=== PATIENT | female | born 1970 | race Two or more races ===

== ENCOUNTER 2018-02-14 23:58 | Inpatient (IN) | payer MEDICARE, MEDICAID ==
[~2018-02-14] VITALS: Ht 165.1 cm; Wt 83.5 kg
[2018-02-15] VITALS (8 sets, daily range): BP systolic 104–127; BP diastolic 55–78
[2018-02-15 00:27] LABS: HEMATOCRIT 37.7 % (37.0-47.0); MEAN CORPUSCULAR VOLUME 90 FL (80-99); PLATELET COUNT 437 K/UL (150-450); RED BLOOD COUNT 4.17 M/UL (4.20-5.40)
[2018-02-15 00:35] LABS: WHITE BLOOD COUNT 28.2 K/UL (4.8-10.8)
[2018-02-15 00:44] LABS: ANION GAP 17 mmol/L (5-15); BLOOD UREA NITROGEN 63 mg/dL (7-18); CALCIUM 9.9 MG/DL (8.5-10.1); CARBON DIOXIDE 22 MMOL/L (21-32); CHLORIDE 97 MMOL/L (98-107); CREATININE 2.7 MG/DL (0.55-1.30); POTASSIUM 4.3 MMOL/L (3.5-5.1); SODIUM 136 MMOL/L (136-145)
[2018-02-15 00:46] LABS: APPEARANCE,URINE TURBID; BILIRUBIN, URINE NEGATIVE (NEGATIVE); GLUCOSE, URINE (UA) 1+ (NEGATIVE); KETONES,URINE NEGATIVE (NEGATIVE); LEUKOCYTE ESTERASE ,URINE 2+ (NEGATIVE); NITRITE,URINE NEGATIVE (NEGATIVE); PH,URINE 7 (4.5-8.0); PROTEIN,URINE 4+ (NEGATIVE); UROBILINOGEN,URINE NORMAL MG/DL (0.0-1.0)
[2018-02-15 00:47] LABS: INR 0.9 (0.9-1.1)
[2018-02-15 00:48] LABS: COLOR,URINE RED
[2018-02-15] MEDS ORDERED: IPRATROPIU0.2 MG/1 M HHN (00:53)
[2018-02-15] MEDS ORDERED: MULTIVITAMINS1 EAC8 GT (00:53)
[2018-02-15] MEDS ORDERED: MILK OF MA400 MG/51 GT (00:53)
[2018-02-15] MEDS ORDERED: COMPAZINE10 MG GT (00:53)
[2018-02-15] MEDS ORDERED: COZAAR25 MG GT (00:53)
[2018-02-15] MEDS ORDERED: KEPPRA LIQ100 MG/1 M GT (00:53)
[2018-02-15] MEDS ORDERED: DULCOLAX10 MG RC (00:53)
[2018-02-15] MEDS ORDERED: HEPARIN SO5000 UNIT2 SUBQ (00:53)
[2018-02-15] MEDS ORDERED: DIGOXIN0.25 MG/5 GT (00:53)
[2018-02-15] MEDS ORDERED: PEPCID AC20 M2 GT (00:53)
[2018-02-15] MEDS ORDERED: CARVEDILOL12.5 MG GT (00:53)
[2018-02-15] MEDS ORDERED: CRANBERRY JUIC425 MG GT (00:53)
[2018-02-15] MEDS ORDERED: LACTULOSE20 GM/301 GT (00:53)
[2018-02-15] MEDS ORDERED: ATIVAN2 MG GT (00:53)
[2018-02-15 00:58] LABS: ALANINE AMINOTRANSFERASE 56 U/L (12-78); ALBUMIN 3.8 G/DL (3.4-5.0); ALBUMIN/GLOBULIN RATIO 0.7 (1.0-2.7); ALKALINE PHOSPHATASE 105 U/L (46-116); ASPARTATE AMINO TRANSFERASE 28 U/L (15-37); BILIRUBIN,TOTAL 1.1 MG/DL (0.2-1.0); CKMB 1.3 NG/ML (0.0-3.6); CREATINE KINASE 54 U/L (26-308)
[2018-02-15] MEDS ORDERED: Cefepime HCl 1 GM in D5W 55 ML IVPB ONE (01:00)
[2018-02-15 01:01] LABS: BILIRUBIN,DIRECT 0.3 MG/DL (0.0-0.3)
[2018-02-15] MEDS ORDERED: Acetaminophen 500mg (ES) tab ORAL ONE (01:15)
--- NOTE | 2018-02-15 01:27 | Emergency Room Report ---
History of Present Illness General Chief Complaint: Fever Source: Medical Record, EMS Present Illness HPI Is a 47-year-old female with multiple medical problems. She has a history of methamphetamine abuse and seizure activity. She has anoxic brain injury is in a group home. She has a tracheostomy with blow by air and also feeding tube. She presents with chief complaint of fever abdominal distention and tachycardia. According to EMS, nursing staff noticed that she was not making any urine output and was distended. The place a new Baxter in and had urine output that was bloody. Patient had a fever. She was sent here to be evaluated. Unable to get any history from this patient because she is nonverbal. Allergies: Coded Allergies: PENICILLINS (Verified Allergy, Unknown, 02/14/18) Patient History Past Medical History: see triage record, old chart reviewed Past Surgical History: other Pertinent Family History: none Social History: Denies: smoking Now: No Immunizations: other Reviewed Nursing Documentation: PMH: Agreed; PSxH: Agreed Nursing Documentation-PMH Hx Hypertension: Yes Hx Gastrointestinal Problems: Yes - GASTROSTOMY Hx Neurological Problems: Yes - ENCEPHALOPATHY Hx Seizures: Yes Review of Systems Constitutional: Reports: fever, malaise Eye: Denies: eye pain, blurred vision ENT: Denies: ear pain, nose congestion, throat swelling Respiratory: Denies: cough, shortness of breath Cardiovascular: Denies: chest pain, palpitations Gastrointestinal: Reports: abdominal pain Genitourinary: Reports: hematuria Musculoskeletal: Denies: back pain, joint pain Skin: Denies: rash Neurological: Denies: headache, numbness Endocrine: Denies: increased thirst, increased urine Hematologic/Lymphatic: Denies: easy bruising All Other Systems: negative except mentioned in HPI Physical Exam Vital Signs Date Time Temp Pulse Resp B/P (MAP) Pulse Ox O2 Delivery O2 Flow Rate FiO2 02/14/18 23:57 100.6 139 24 102/65 99 Trach Collar 2.0 100.6 vitals with fever and tachycardia Sp02 EP Interpretation: reviewed, normal General Appearance: mild distress, lethargic, Chronically Ill Head: normocephalic, atraumatic Eyes: bilateral eye PERRL, bilateral eye EOMI ENT: hearing grossly normal, dry mucus membranes Neck: full range of motion, supple, no meningismus Respiratory: chest non-tender, lungs clear, normal breath sounds Cardiovascular #1: regular rate, rhythm, no murmur, tachycardia Gastrointestinal: normal bowel sounds, non tender, no mass, no organomegaly, no bruit, non-distended Rectal: other - skin breakdown of the sacrum Musculoskeletal: back normal, normal range of motion Neurologic: other - grimace to pain Skin: warm/dry Procedures Critical Care Time Critical Care Time Critical care is mandated in this patient who presented with sepsis. Patient require my urgent intervention to attenuate the risks of metabolic collapse which may lead to cardiovascular collapse and . Critical care time is 35 minutes excluding any reportable procedure. Critical care time included evaluation, multiple reevaluation, looking at old charts, interpreting laboratory and diagnostic data, discussing case with patient and family and consultants, and charting. Medical Decision Making Diagnostic Impression: Primary Impression: Severe sepsis Additional Impressions: UTI (urinary tract infection) Qualified Codes: N30.00 - Acute cystitis without hematuria Proteinuria Qualified Codes: R80.9 - Proteinuria, unspecified Acute renal failure (ARF) Qualified Codes: N17.9 - Acute kidney failure, unspecified Urinary retention ER Course Patient presents with severe sepsis from UTI. No acute abdomen. She has hydronephrosis probably secondary to urinary retention which resolved. Better after IV fluid and antibiotics. Will admit for IV fluid and further antibiotics. Condition is critical. I contacted Dr. Damon for admission. He is admitting for Dr. Kauffman. Laboratory Tests Test 02/15/18 00:15 02/15/18 02:30 White Blood Count 28.2 K/UL (4.8-10.8) *H Red Blood Count 4.17 M/UL (4.20-5.40) L Hemoglobin 13.0 G/DL (12.0-16.0) Hematocrit 37.7 % (37.0-47.0) Mean Corpuscular Volume 90 FL (80-99) Mean Corpuscular Hemoglobin 31.2 PG (27.0-31.0) H Mean Corpuscular Hemoglobin Concent 34.6 G/DL (32.0-36.0) Red Cell Distribution Width 13.0 % (11.6-14.8) Platelet Count 437 K/UL (150-450) Mean Platelet Volume 7.8 FL (6.5-10.1) Neutrophils (%) (Auto) % (45.0-75.0) Lymphocytes (%) (Auto) % (20.0-45.0) Monocytes (%) (Auto) % (1.0-10.0) Eosinophils (%) (Auto) % (0.0-3.0) Basophils (%) (Auto) % (0.0-2.0) Differential Total Cells Counted 100 Neutrophils % (Manual) 89 % (45-75) H Lymphocytes % (Manual) 7 % (20-45) L Monocytes % (Manual) 4 % (1-10) Eosinophils % (Manual) 0 % (0-3) Basophils % (Manual) 0 % (0-2) Band Neutrophils 0 % (0-8) Platelet Estimate Adequate Platelet Morphology Normal Prothrombin Time 9.5 SEC (9.30-11.50) Prothromb Time International Ratio 0.9 (0.9-1.1) Activated Partial Thromboplast Time 27 SEC (23-33) Urine Color Red Urine Appearance Turbid Urine pH 7 (4.5-8.0) Urine Specific [place] 1.010 (1.005-1.035) Urine Protein 4+ (NEGATIVE) H Urine Glucose (UA) 1+ (NEGATIVE) H Urine Ketones Negative (NEGATIVE) Urine Occult Blood 4+ (NEGATIVE) H Urine Nitrite Negative (NEGATIVE) Urine Bilirubin Negative (NEGATIVE) Urine Urobilinogen Normal MG/DL (0.0-1.0) Urine Leukocyte Esterase 2+ (NEGATIVE) H Urine RBC Tntc /HPF (0 - 2) H Urine WBC 30-40 /HPF (0 - 2) H Urine Squamous Epithelial Cells Occasional /LPF Urine Bacteria Few /HPF (NONE) Sodium Level 136 MMOL/L (136-145) Potassium Level 4.3 MMOL/L (3.5-5.1) Chloride Level 97 MMOL/L (98-107) L Carbon Dioxide Level 22 MMOL/L (21-32) Anion Gap 17 mmol/L (5-15) H Blood Urea Nitrogen 63 mg/dL (7-18) H Creatinine 2.7 MG/DL (0.55-1.30) H Estimat Glomerular Filtration Rate 18.8 mL/min (>60) Glucose Level 155 MG/DL (74-106) H Lactic Acid Level 3.10 mmol/L (0.66-2.22) H 2.60 mmol/L (0.66-2.22) H Calcium Level 9.9 MG/DL (8.5-10.1) Total Bilirubin 1.1 MG/DL (0.2-1.0) H Direct Bilirubin 0.3 MG/DL (0.0-0.3) Aspartate Amino Transf (AST/SGOT) 28 U/L (15-37) Alanine Aminotransferase (ALT/SGPT) 56 U/L (12-78) Alkaline Phosphatase 105 U/L (46-116) Total Creatine Kinase 54 U/L (26-308) Creatine Kinase MB 1.3 NG/ML (0.0-3.6) Creatine Kinase MB Relative Index 2.4 Troponin I 0.000 ng/mL (0.000-0.056) Total Protein 8.9 G/DL (6.4-8.2) H Albumin 3.8 G/DL (3.4-5.0) Globulin 5.1 g/dL Albumin/Globulin Ratio 0.7 (1.0-2.7) L Lab Results Impression labs with leukocytosis and arf EKG Diagnostic Results Rate: tachycardiac Rhythm: NSR ST Segments: other - NSST changes Rhythm Strip Diag. Results Rhythm Strip Time: 01:26 EP Interpretation: yes Rate: 120 Rhythm: NSR, no PVC's, no ectopy Chest X-Ray Diagnostic Results Chest X-Ray Diagnostic Results : Chest X-Ray Ordered: Yes # of Views/Limited/Complete: 1 View Indication: Shortness of Breath EP Interpretation: Yes Interpretation: no consolidation, no effusion, no pneumothorax, no acute cardiopulmonary disease Impression: No acute disease Electronically Signed by: Med Cole MD CT/MRI/US Diagnostic Results CT/MRI/US Diagnostic Results : Imaging Test Ordered: CT abdomen and pelvis Impression Read by radiologist. Gallstone. No inflammation. Hydronephrosis. Last Vital Signs Date Time Temp Pulse Resp B/P (MAP) Pulse Ox O2 Delivery O2 Flow Rate FiO2 02/14/18 23:57 100.6 139 24 102/65 99 Trach Collar 2.0 100.6 Status: improved Disposition: ADMITTED INPATIENT Condition: Critical Referrals: NON PHYSICIAN (PCP) MED COLE M.D. February 15, 2018 01:27
--- NOTE | 2018-02-15 01:58 | Diagnostic Imaging Report ---
EXAM: XR Chest, 1 View CLINICAL HISTORY: SOB TECHNIQUE: Frontal view of the chest. COMPARISON: No relevant prior studies available. FINDINGS: Tracheostomy. Heart size likely normal allowing for technique/portions with poor depth. Basilar atelectasis and/or infiltrate. Partially visualized percutaneous gastrostomy tube. Gaseous distention of stomach. IMPRESSION: Basilar atelectasis and/or infiltrate. Gaseous distention of stomach. Tracheostomy and percutaneous gastrostomy tube.
--- NOTE | 2018-02-15 02:13 | Diagnostic Imaging Report ---
EXAM: CT Abdomen and Pelvis Without Intravenous Contrast CLINICAL HISTORY: ABD PAIN TECHNIQUE: Axial computed tomography images of the abdomen and pelvis without intravenous contrast. CTDI is 19.5 mGy and DLP is 1064.4 mGy-cm. One or more of the following dose reduction techniques were used: automated exposure control, adjustment of the mA and/or kV according to patient size, use of iterative reconstruction technique. COMPARISON: No relevant prior studies available. FINDINGS: There is artifact limiting evaluation. Suspect trace pleural fluid. Dependent predominant atelectasis and/or infiltrate. There is bilateral hydronephrosis and hydroureter more prominent on the left. No urinary tract calculi seen. Bladder is decompressed with catheter limiting evaluation. Although decompressed, suspected wall thickening of bladder. There is intracystic air which is nonspecific given catheter. More questionable mural gas in the bladder versus intraluminal air. Recommend correlation for urinary tract infection/cystitis including emphysematous cystitis. There is trace free fluid with some fluid layering over retroperitoneum and fluid in the presacral region. Percutaneous gastrostomy tube. Gastric distention. There is prominent gas in small bowel and colon, as well. No obstruction is seen. Suspect findings represent ileus. Suspected cholelithiasis with stone in region of gallbladder neck/cystic duct. Example image 59/8. No obvious pericholecystic inflammatory changes though motion limits evaluation. If there are right upper quadrant symptoms, could correlate with ultrasound. No evidence for appendicitis. Suspect decubitus ulcer at posterior pelvic wall near midline. Portions of the underlying sacrum appears thinned with some portions not visualized. A component of osteomyelitis is not excluded. Heterotopic ossification partially imaged in the left pelvis and thigh. IMPRESSION: There is artifact limiting evaluation. Suspect trace pleural fluid. Dependent predominant atelectasis and/or infiltrate. Left greater than right hydronephrosis and hydroureter without urinary tract calculi. May be related to bladder wall thickening. Intraluminal gas in the bladder is nonspecific given catheter. More questionable mural gas. Recommend correlation for urinary tract infection/cystitis including emphysematous cystitis. Suspected cholelithiasis with stone in region of gallbladder neck/cystic duct. Example image 59/8. No obvious pericholecystic inflammatory changes though motion limits evaluation. If there are right upper quadrant symptoms, could correlate with ultrasound. Suspect ileus. No definite obstruction. Trace free fluid. Suspect decubitus ulcer at posterior pelvic wall near midline. Portions of the underlying sacrum appears thinned with some portions not visualized. A component of osteomyelitis is not excluded.
[2018-02-15] MEDS ORDERED: Ipratropium 0.02% Inh Soln 2.5ml UD HHN PRN ×2 (07:00→07:45)
[2018-02-15] MEDS ORDERED: Prochlorperazine 10mg tab GT PRN (07:00)
[2018-02-15] MEDS ORDERED: Milk of Magnesia 30ml Ud GT PRN (07:00)
[2018-02-15] MEDS: D5 1/2NS 1,000 ML IV SCH ×2 (08:18→21:35)
[2018-02-15] MEDS ORDERED: Losartan 25mg tab GT SCH (09:00)
[2018-02-15] MEDS: Multivitamin w/Minerals tab ORAL SCH (09:07)
[2018-02-15] MEDS: levETIRAcetam 500mg/5ml Liquid GT SCH ×2 (09:08→21:36)
[2018-02-15] MEDS: Lactulose 20gm/30ml UDC GT SCH ×2 (09:08→17:28)
[2018-02-15] MEDS ORDERED: Vancomycin 1gm in D5W 275ml IVPB ONE (10:00)
[2018-02-15] MEDS: Vitamin A&D Oint 2oz Tube TOPIC SCH ×2 (10:37→21:36)
[2018-02-15] MEDS: Cefepime HCl 2 GM in D5W 55 ML IV SCH (13:31)
--- NOTE | 2018-02-15 14:46 | History & Physical ---
History and Physical History & Physicial Dictated for Int Med-Dr Damon no. [id number]. Jonnathan Mcgrath MD February 15, 2018 14:46
[2018-02-15] MEDS ORDERED: Tubing IV Secondary IV ONE (18:44)
--- NOTE | 2018-02-15 22:15 | History and Physical Report ---
DATE OF ADMISSION: 02/15/2018 CHIEF COMPLAINT: The patient is a 47-year-old female who presents with chief complaint of fever and hematuria. HISTORY OF PRESENT ILLNESS: The patient is a resident of [facility]. The patient herself is unable to contribute to the history and physical and is nonverbal. According to the record, the patient was at [facility]. The patient began to experience fever yesterday February 14, 2018. The patient also was anuric. A Baxter was placed by EMS. The patient was noted to have hematuria. The patient was also noted to have abdominal distention secondary to urinary retention. The patient was transferred to [facility] emergency room. The patient admitted for hematuria to rule out pyelonephritis versus urinary tract infection. REVIEW OF SYSTEMS: Unable to assess secondary to patient's mental status. PAST MEDICAL HISTORY: Significant for: 1. Chronic encephalopathy secondary to anoxic brain injury. 2. Chronic respiratory failure status post tracheostomy. 3. Dysphagia. 4. Hypertension. 5. Seizure disorder. 6. Hydrocephalus. PAST SURGICAL HISTORY: Significant for: 1. PEG placement. 2. Tracheostomy. CURRENT MEDICATIONS: 1. Cozaar 12.5 mg p.o. daily. 2. Carvedilol 12.5 mg per G-tube twice daily. 3. Ativan 2 mg per G-tube twice daily. 4. Digoxin 0.25 mg p.o. daily. 5. DuoNeb nebulized. 6. Keppra 750 mg per G-tube twice daily. 7. Famotidine 20 mg per G-tube twice daily. ALLERGIES: Penicillin. SOCIAL HISTORY: The patient resident of [facility]. PHYSICAL EXAMINATION: VITAL SIGNS: Temperature 98.2, respirations 25, blood pressure 127/76, pulse tachycardic at 134. GENERAL: The patient is well-developed and well-nourished female, who is nonverbal. HEENT: Eyes, pupils are equal and responsive to light and accommodation. Extraocular movements are intact. NECK: Tracheostomy is in place. Otherwise supple without lymphadenopathy. CHEST: Diffuse crackles bilaterally with expiratory wheezes bilaterally. CARDIOVASCULAR: Tachycardic. Regular rate. S1 and S2 are normal without murmurs, rubs, or gallops. ABDOMEN: Soft, nondistended, nontender with positive bowel sounds. No evidence of hepatosplenomegaly. Currently, no rebound or guarding noted. EXTREMITIES: Negative for clubbing, cyanosis, or edema. NEUROLOGICALLY: Unable to assess secondary to patient's encephalopathy. LABORATORY AND DIAGNOSTIC DATA: WBC 28.3, hemoglobin 13.3, hematocrit 37.7, platelets 137,000. Sodium 136, potassium 4.3, chloride 97, CO2 22, BUN 63, creatinine 2.[address] scan of the abdomen revealed left greater than right hydronephrosis. Urinalysis showed 4+ occult blood, 4+ protein, 1+ glucose, 2+ leukocyte esterase, rbc's too numerous to count, WBCs 30 to 40. ASSESSMENT: This is a 47-year-old female. 1. Bibasilar pneumonia. 2. Fever. 3. Hematuria. 4. Encephalopathy. 5. Chronic respiratory failure. 6. Dysphagia. 7. Abdominal distention. 8. Hydronephrosis. 9. Atrial fibrillation. 10. Hypertension. 11. Seizure disorder. 12. Hydrocephalus. TREATMENT: 1. Bibasilar pneumonia/fever. An Infectious Disease consultation has been obtained with Dr. Aquino. The patient has been started empirically on Flagyl and vancomycin. A sputum culture is pending. Pulmonary consultation obtained with Dr. Trisha Soto. 2. History of chronic respiratory failure. The patient is status post tracheostomy. A Pulmonary consultation obtained with Dr. Trisha Soto. 3. Dysphagia. The patient is status post PEG placement. 4. Abdominal distention this probably secondary to urinary retention as above. 5. Hydronephrosis/renal failure. A Nephrology consultation obtained with Dr. Link. 6. Atrial fibrillation. Continue digoxin as above. 7. Hypertension. Continue Coreg as above. 8. Seizure disorder. Continue Keppra as above. Jonnathan Mcgrath M.D. DR: Meredith JOB#: [id number] CC:
[2018-02-16] VITALS: BP 122/66
[2018-02-16 04:00] VITALS: BP 128/68
[2018-02-16 08:00] VITALS: BP 104/43
[2018-02-16] MEDS: Lactulose 20gm/30ml UDC GT SCH ×2 (08:54→18:00)
[2018-02-16] MEDS: levETIRAcetam 500mg/5ml Liquid GT SCH ×2 (08:54→21:01)
[2018-02-16] MEDS: Multivitamin w/Minerals tab ORAL SCH (08:54)
[2018-02-16] MEDS: Heparin 5000 units/ml inj SUBQ SCH ×2 (09:00→21:04)
[2018-02-16] MEDS: Vitamin A&D Oint 2oz Tube TOPIC SCH ×2 (09:01→21:04)
--- NOTE | 2018-02-16 10:37 | Internal Med Progress Note ---
Subjective Date of Service: February 16, 2018 Physician Name Jonnathan Mcgrath Attending Physician Jak Damon MD Current Medications Medications (Trade) Dose Ordered Sig/Bere Route PRN Reason Start Time Stop Time Status Last Admin Dose Admin Bisacodyl (Dulcolax) 10 mg DAILY RECTAL 02/15/18 09:00 03/17/18 08:59 02/16/18 08:54 Carvedilol (Coreg) 3.125 mg EVERY 12 HOURS GT 02/15/18 09:00 03/17/18 08:59 02/16/18 08:55 Cefepime HCl 2 gm/ Dextrose 55 ml @ 110 mls/hr Q24H IV 02/15/18 12:00 02/22/18 11:59 02/15/18 13:31 Dextrose (Dextrose 50%) 25 ml STAT PRN IV Hypoglycemia 02/15/18 07:15 03/17/18 07:14 Dextrose (Dextrose 50%) 50 ml STAT PRN IV Hypoglycemia 02/15/18 07:15 03/17/18 07:14 Dextrose/Sodium Chloride 1,000 ml @ 75 mls/hr [id number] IV 02/15/18 08:00 03/17/18 07:59 02/15/18 21:35 Famotidine (Pepcid) 20 mg BID GT 02/15/18 09:00 03/17/18 08:59 02/16/18 08:54 Heparin Sodium (Porcine) (Heparin 5000 units/ml) 5,000 units EVERY 12 HOURS SUBQ 02/16/18 09:00 03/18/18 08:59 02/16/18 09:00 Ipratropium Mcconnell (Atrovent) 500 mcg EVERY 2 HOURS PRN HHN Shortness of Breath 02/15/18 07:45 02/20/18 07:44 02/15/18 07:49 Lactulose (Cephulac) 20 gm BID GT 02/15/18 09:00 03/17/18 08:59 02/16/18 08:54 Levetiracetam (Keppra) 750 mg EVERY 12 HOURS GT 02/15/18 09:00 03/17/18 08:59 02/16/18 08:54 Magnesium Hydroxide (Mom) 30 ml DAILY PRN GT Constipation 02/15/18 07:00 03/17/18 06:59 Metronidazole 100 ml @ 100 mls/hr Q12HR IVPB 02/15/18 09:00 02/22/18 08:59 02/16/18 08:53 Multivitamins Therapeutic (Therapeutic Multivitamin) 1 ea DAILY ORAL 02/15/18 09:00 03/17/18 08:59 02/16/18 08:54 Vancomycin HCl (Vanco rx to dose) 1 ea DAILY PRN MISC Per rx protocol 02/15/18 06:45 03/17/18 06:44 Vitamin A/Vitamin D (A & D Oint) 1 applic EVERY 12 HOURS TOPIC 02/15/18 09:00 03/17/18 08:59 02/16/18 09:01 Allergies: Coded Allergies: PENICILLINS (Verified Allergy, Unknown, 02/14/18) ROS Limited/Unobtainable: Yes Subjective 47 YO F admitted with fever and hematuria. Now pneumonia. Cover for Int Med- Dr Damon. IRENE Objective Last Vital Signs Date Time Temp Pulse Resp B/P (MAP) Pulse Ox O2 Delivery O2 Flow Rate FiO2 02/16/18 08:55 114 104/43 02/16/18 08:00 98.6 20 97 Trach Collar 6.0 28 98.6 General Appearance: lethargic EENT: normal ENT inspection, other - Trach collar Neck: non-tender, supple Cardiovascular: regular rhythm, no gallop/murmur, no JVD, tachycardia Respiratory/Chest: respiratory distress, crackles/rales, rhonchi - bilaterally , expiratory wheezing Abdomen: normal bowel sounds, non tender, soft, no organomegaly, no mass Extremities: normal inspection Neurologic: motor weakness, sensory deficit, unresponsiveness, aphasia Laboratory Tests Test 02/16/18 08:46 Arterial Blood pH 7.480 (7.350-7.450) Arterial Blood Partial Pressure CO2 38.2 mmHg (35.0-45.0) Arterial Blood Partial Pressure O2 134.2 mmHg (75.0-100.0) H Arterial Blood HCO3 28.3 mmol/L (22.0-26.0) H Arterial Blood Oxygen Saturation 98.2 % (92.0-98.0) H Arterial Blood Base Excess 4.7 Hung Test Positive Microbiology Date/Time Source Procedure Growth Status 02/15/18 00:15 Blood Blood Culture - Preliminary NO GROWTH AFTER 24 HOURS Resulted 02/15/18 00:00 Blood Blood Culture - Preliminary NO GROWTH AFTER 24 HOURS Resulted 02/15/18 14:00 Indwelling Cath Urine Culture - Preliminary NO GROWTH Resulted 02/15/18 00:15 Urine,Clean Catch Urine Culture - Preliminary Resulted Intake and Output 02/15/18 02/16/18 19:00 07:00 Intake Total 970 ml 1705 ml Output Total 1200 ml 800 ml Balance -230 ml 905 ml Intake Free Water 50 ml IV Total 660 ml 955 ml Tube Feeding 310 ml 700 ml Output Urine Total 1200 ml 800 ml # Bowel Movements 4 4 Assessment/Plan Problem List: (1) Leukocytosis Assessment & Plan: Continue cefepima, vanco and flagyl per ID (2) Pneumonia (3) Fever Assessment & Plan: Resolving. Continue vanco, cefepime and flagyl per ID. Await culture results. (4) Hematuria (5) Encephalopathy Assessment & Plan: due to Anoxic brain injury (6) Respiratory failure Assessment & Plan: Trach dependent. See pulmonary note (7) Tracheostomy care (8) Dysphagia Assessment & Plan: Gastrostomy tube in place. (9) Abdominal distension (10) Hydronephrosis (11) Atrial fibrillation Assessment & Plan: Continue digoxin. (12) HTN (hypertension) (13) Seizure disorder Assessment & Plan: Continue Keppra (14) Hydrocephalus (15) Severe sepsis (16) Acute renal failure (ARF) Assessment & Plan: Await nephrology consult. (17) UTI (urinary tract infection) Assessment & Plan: Await urine cultures. Continue cefepime and vanco per ID (18) Urinary retention Status: not improved Jonnathan Mcgrath MD February 16, 2018 10:37
[2018-02-16 11:02] LABS: BASOPHILS % (AUTO) 0.7 % (0.0-2.0); EOSINOPHILS % (AUTO) 4.4 % (0.0-3.0); HEMATOCRIT 27.3 % (37.0-47.0); LYMPHOCYTES % (AUTO) 15.9 % (20.0-45.0); MEAN CORPUSCULAR VOLUME 91 FL (80-99); MONOCYTES % (AUTO) 5.4 % (1.0-10.0); NEUTROPHILS % (AUTO) 73.7 % (45.0-75.0); PLATELET COUNT 261 K/UL (150-450); RED BLOOD COUNT 2.99 M/UL (4.20-5.40); RED CELL DISTRIBUTION WIDTH 12.8 % (11.6-14.8)
[2018-02-16 11:28] LABS: ALANINE AMINOTRANSFERASE 63 U/L (12-78); ALBUMIN 2.9 G/DL (3.4-5.0); ALBUMIN/GLOBULIN RATIO 0.7 (1.0-2.7); ALKALINE PHOSPHATASE 80 U/L (46-116); ANION GAP 8 mmol/L (5-15); ASPARTATE AMINO TRANSFERASE 30 U/L (15-37); BILIRUBIN,TOTAL 0.3 MG/DL (0.2-1.0); BLOOD UREA NITROGEN 17 mg/dL (7-18); CALCIUM 8.8 MG/DL (8.5-10.1); CARBON DIOXIDE 28 MMOL/L (21-32); CHLORIDE 102 MMOL/L (98-107); CREATININE 0.7 MG/DL (0.55-1.30); PHOSPHORUS 2.8 MG/DL (2.5-4.9); POTASSIUM 3.2 MMOL/L (3.5-5.1); SODIUM 138 MMOL/L (136-145)
--- NOTE | 2018-02-16 11:30 | Consultation ---
Consult Note Consult Note asked to eval for renal failure Is a 47-year-old female with multiple medical problems. She has a history of methamphetamine abuse and seizure activity. She has anoxic brain injury is in a assisted. She has a tracheostomy with blow by air and also feeding tube. She presents with chief complaint of fever abdominal distention and tachycardia. According to EMS, nursing staff noticed that she was not making any urine output and was distended. The place a new Baxter in and had urine output that was bloody. Patient had a fever. She was sent here to be evaluated. Unable to get any history from this patient because she is nonverbal. Allergies: PENICILLINS (Verified Allergy, Unknown, 02/14/18) Hx Hypertension: Yes Hx Gastrointestinal Problems: Yes - GASTROSTOMY Hx Neurological Problems: Yes - ENCEPHALOPATHY Hx Seizures: Yes examined- non historian data reviewed discussed with manufacturing engineering manager/Plan acuter renal failure- Urinary retention Dehydration Sepsis- Pneumonia and UTI, High Lactate Chronic respiratory failure- At Fib Sz disorder- Hydrocephalus Anemia Hydrate- Antibiotics- Baxter- Monitor renal parameters Avoid Nephrotoxics per orders PATRICIO KNUTSON February 16, 2018 11:30
[2018-02-16 11:45] VITALS: BP 112/70
[2018-02-16] MEDS: Cefepime HCl 2 GM in D5W 55 ML IV SCH (11:52)
--- NOTE | 2018-02-16 12:09 | Consultation ---
History of Present Illness General Date patient seen: February 16, 2018 Chief Complaint: Fever Present Illness HPI 47 year old female with hx of chronic respiratory failure, s/p trach, vegetative state, seizure disorder, s/p PEG, [facility] resident ADE with CC of fever, abdominal distension and hematuria. Pt has chronic respiratory failure and is on trach collar. She can't give any history and all information is obtained from the chart. Allergies: Coded Allergies: PENICILLINS (Verified Allergy, Unknown, 02/14/18) Medication History Scheduled Bisacodyl (Dulcolax), 10 MG RC DAILY, (Reported) Carvedilol* (Carvedilol*), 12.5 MG GT EVERY 12 HOURS, (Reported) Cranberry Extract (Cranberry Juice Powder), 425 MG GT DAILY, (Reported) Digoxin* (Digoxin*), 0.25 MG GT DAILY, (Reported) Famotidine (Pepcid Ac), 20 MG GT BID, (Reported) Heparin Sod (Porcine) (Heparin Sodium*), 5,000 UNITS SUBQ EVERY 12 HOURS, ( Reported) Lactulose (Lactulose*), 30 ML GT BID, (Reported) Levetiracetam (Keppra), 7.5 ML GT EVERY 12 HOURS, (Reported) Losartan Potassium* (Cozaar*), 12.5 MG GT DAILY, (Reported) Magnesium Hydroxide* (Milk Of Magnesia*), 30 ML GT DAILY, (Reported) Multivitamin With Minerals (Multivitamins With Minerals*), 1 TAB GT DAILY, ( Reported) Scheduled PRN Ipratropium [place] 0.5MG/2.5ML (Ipratropium [place] 0.5MG/2.5ML), 0.5 MG HHN EVERY 2 HOURS PRN for Shortness of Breath, (Reported) Lorazepam* (Ativan*), 2 MG GT EVERY 12 HOURS PRN for For Seizures, (Reported) Prochlorperazine (Compazine*), 10 MG GT EVERY 8 HOURS PRN for Nausea & Vomiting, (Reported) Patient History Healthcare decision maker Resuscitation status Advanced Directive on File Past Medical/Surgical History Past Medical/Surgical History: (1) Tracheostomy care (2) HTN (hypertension) (3) Seizure disorder (4) Hydrocephalus Review of Systems All Other Systems: negative except mentioned in HPI Physical Exam General Appearance: mild distress Lines, tubes and drains: peripheral HEENT: normocephalic, anicteric Neck: non-tender, normal alignment Respiratory/Chest: chest wall non-tender, lungs clear, normal breath sounds Cardiovascular/Chest: normal peripheral pulses Abdomen: normal bowel sounds Genitourinary/Rectal: normal genital exam Extremities: normal range of motion, non-tender Skin Exam: normal pigmentation 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 II-XII grossly normal Last 24 Hour Vital Signs Date Time Temp Pulse Resp B/P (MAP) Pulse Ox O2 Delivery O2 Flow Rate FiO2 02/16/18 11:51 97 02/16/18 11:45 99.5 97 20 112/70 100 Trach Collar 6.0 28 99.5 02/16/18 08:55 114 104/43 02/16/18 08:00 98.6 114 20 104/43 97 Trach Collar 6.0 28 98.6 02/16/18 08:00 110 02/16/18 07:10 T-piece 6.0 28 02/16/18 07:09 98 T-piece 6.0 28 02/16/18 07:08 98 22 T-piece 6.0 28 02/16/18 04:00 94 02/16/18 04:00 98.7 103 21 128/68 18 Trach Collar 2.0 98.7 02/16/18 00:58 T-piece 6.0 28 02/16/18 00:58 98 T-piece 6.0 28 02/16/18 00:00 106 02/16/18 00:00 98.8 106 20 122/66 17 Trach Collar 2.0 98.8 02/16/18 00:00 124 02/15/18 21:37 97 132/71 02/15/18 20:00 98.9 115 22 116/78 97 Trach Collar 2.0 98.9 02/15/18 19:09 97 T-piece 6.0 28 02/15/18 19:09 97 24 T-piece 6.0 28 02/15/18 19:09 T-piece 6.0 28 02/15/18 16:30 98.2 134 25 127/76 97 Trach Collar 2.0 98.2 02/15/18 16:00 121 02/15/18 13:08 99 T-piece 6.0 28 02/15/18 13:08 T-piece 6.0 28 Intake and Output 02/15/18 02/16/18 19:00 07:00 Intake Total 970 ml 1705 ml Output Total 1200 ml 800 ml Balance -230 ml 905 ml Intake Free Water 50 ml IV Total 660 ml 955 ml Tube Feeding 310 ml 700 ml Output Urine Total 1200 ml 800 ml # Bowel Movements 4 4 Laboratory Tests Test 02/16/18 08:46 02/16/18 10:05 Arterial Blood pH 7.480 (7.350-7.450) Arterial Blood Partial Pressure CO2 38.2 mmHg (35.0-45.0) Arterial Blood Partial Pressure O2 134.2 mmHg (75.0-100.0) H Arterial Blood HCO3 28.3 mmol/L (22.0-26.0) H Arterial Blood Oxygen Saturation 98.2 % (92.0-98.0) H Arterial Blood Base Excess 4.7 Hung Test Positive White Blood Count 12.0 K/UL (4.8-10.8) #H Red Blood Count 2.99 M/UL (4.20-5.40) L Hemoglobin 9.0 G/DL (12.0-16.0) #L Hematocrit 27.3 % (37.0-47.0) L Mean Corpuscular Volume 91 FL (80-99) Mean Corpuscular Hemoglobin 30.2 PG (27.0-31.0) Mean Corpuscular Hemoglobin Concent 33.2 G/DL (32.0-36.0) Red Cell Distribution Width 12.8 % (11.6-14.8) Platelet Count 261 K/UL (150-450) Mean Platelet Volume 8.1 FL (6.5-10.1) Neutrophils (%) (Auto) 73.7 % (45.0-75.0) Lymphocytes (%) (Auto) 15.9 % (20.0-45.0) L Monocytes (%) (Auto) 5.4 % (1.0-10.0) Eosinophils (%) (Auto) 4.4 % (0.0-3.0) H Basophils (%) (Auto) 0.7 % (0.0-2.0) Sodium Level 138 MMOL/L (136-145) Potassium Level 3.2 MMOL/L (3.5-5.1) L Chloride Level 102 MMOL/L (98-107) Carbon Dioxide Level 28 MMOL/L (21-32) Anion Gap 8 mmol/L (5-15) Blood Urea Nitrogen 17 mg/dL (7-18) Creatinine 0.7 MG/DL (0.55-1.30) # Estimat Glomerular Filtration Rate > 60 mL/min (>60) Glucose Level 127 MG/DL (74-106) H Uric Acid Pending Calcium Level 8.8 MG/DL (8.5-10.1) Phosphorus Level 2.8 MG/DL (2.5-4.9) Magnesium Level 2.0 MG/DL (1.8-2.4) Iron Level Pending Unsaturated Iron Binding Pending Ferritin Pending Total Bilirubin 0.3 MG/DL (0.2-1.0) Aspartate Amino Transf (AST/SGOT) 30 U/L (15-37) Alanine Aminotransferase (ALT/SGPT) 63 U/L (12-78) Alkaline Phosphatase 80 U/L (46-116) C-Reactive Protein, Quantitative Pending Pro-B-Type Natriuretic Peptide 158 pg/mL (0-125) H Total Protein 7.2 G/DL (6.4-8.2) Albumin 2.9 G/DL (3.4-5.0) L Globulin 4.3 g/dL Albumin/Globulin Ratio 0.7 (1.0-2.7) L Vitamin B12 Level Pending Folate Pending Random Vancomycin Level < 2.0 ug/mL Digoxin Level Pending Microbiology Date/Time Source Procedure Growth Status 02/15/18 14:00 Indwelling Cath Urine Culture - Preliminary NO GROWTH Resulted Height (Feet): 5 Height (Inches): 5.00 Weight (Pounds): 150 Medications Current Medications Medications (Trade) Dose Ordered Sig/Bere Route PRN Reason Start Time Stop Time Status Last Admin Dose Admin Bisacodyl (Dulcolax) 10 mg DAILY RECTAL 02/15/18 09:00 03/17/18 08:59 02/16/18 08:54 Carvedilol (Coreg) 3.125 mg EVERY 12 HOURS GT 02/15/18 09:00 03/17/18 08:59 02/16/18 08:55 Cefepime HCl 2 gm/ Dextrose 55 ml @ 110 mls/hr Q24H IV 02/15/18 12:00 02/22/18 11:59 02/16/18 11:52 Dextrose (Dextrose 50%) 25 ml STAT PRN IV Hypoglycemia 02/15/18 07:15 03/17/18 07:14 Dextrose (Dextrose 50%) 50 ml STAT PRN IV Hypoglycemia 02/15/18 07:15 03/17/18 07:14 Famotidine (Pepcid) 20 mg BID GT 02/15/18 09:00 03/17/18 08:59 02/16/18 08:54 Heparin Sodium (Porcine) (Heparin 5000 units/ml) 5,000 units EVERY 12 HOURS SUBQ 02/16/18 09:00 03/18/18 08:59 02/16/18 09:00 Ipratropium [place] (Atrovent) 500 mcg EVERY 2 HOURS PRN HHN Shortness of Breath 02/15/18 07:45 02/20/18 07:44 02/15/18 07:49 Lactulose (Cephulac) 20 gm BID GT 02/15/18 09:00 03/17/18 08:59 02/16/18 08:54 Levetiracetam (Keppra) 750 mg EVERY 12 HOURS GT 02/15/18 09:00 03/17/18 08:59 02/16/18 08:54 Magnesium Hydroxide (Mom) 30 ml DAILY PRN GT Constipation 02/15/18 07:00 03/17/18 06:59 Metronidazole 100 ml @ 100 mls/hr Q12HR IVPB 02/15/18 09:00 02/22/18 08:59 02/16/18 08:53 Multivitamins Therapeutic (Therapeutic Multivitamin) 1 ea DAILY ORAL 02/15/18 09:00 03/17/18 08:59 02/16/18 08:54 Sodium Chloride 1,000 ml @ 75 mls/hr [id number] IV 02/16/18 12:15 03/18/18 12:14 Vancomycin HCl (Vanco rx to dose) 1 ea DAILY PRN MISC Per rx protocol 02/15/18 06:45 03/17/18 06:44 Vancomycin HCl/ Dextrose 250 ml @ 125 mls/hr ONCE ONCE IVPB 02/16/18 13:00 02/16/18 14:59 Vancomycin HCl/ Dextrose 250 ml @ 166.667 mls/hr Q12HR@0100,1300 IVPB 02/17/18 01:00 02/22/18 00:59 Vitamin A/Vitamin D (A & D Oint) 1 applic EVERY 12 HOURS TOPIC 02/15/18 09:00 03/17/18 08:59 02/16/18 09:01 Assessment/Plan Problem List: (1) Pneumonia ICD Codes: J18.9 - Pneumonia, unspecified organism SNOMED: 358562659 (2) Severe sepsis ICD Codes: A41.9 - Sepsis, unspecified organism; R65.20 - Severe sepsis without septic shock SNOMED: 00682528 (3) Acute renal failure (ARF) ICD Codes: N17.9 - Acute kidney failure, unspecified SNOMED: 90717376 Qualifiers: Qualified Codes: N17.9 - Acute kidney failure, unspecified (4) HTN (hypertension) ICD Codes: I10 - Essential (primary) hypertension SNOMED: 55709151 (5) Encephalopathy ICD Codes: G93.40 - Encephalopathy, unspecified SNOMED: 89599624 (6) Seizure disorder ICD Codes: G40.909 - Epilepsy, unspecified, not intractable, without status epilepticus SNOMED: 407811826 (7) Tracheostomy care ICD Codes: Z43.0 - Encounter for attention to tracheostomy SNOMED: 842523276 Assessment/Plan check sputum broad spectrum abx check cultures Urology evaluation renal f/u check electrolytes monitor BP titrate fio2 to sat of 92% frequent suctions bronchial toilet Trisha Soto MD February 16, 2018 12:09
[2018-02-16 12:38] LABS: FERRITIN 190 NG/ML (8-388)
[2018-02-16] MEDS ORDERED: Vancomycin 1.5 GM/D5W 250ML IVPB ONE (13:00)
[2018-02-16 13:06] LABS: % IRON SATURATION 9 % (15-50); IRON 30 ug/dL (50-175); TOTAL IRON BINDING CAPACITY 343 ug/dL (250-450)
--- NOTE | 2018-02-16 14:25 | Consultation ---
Consult Note Consult Note [id number] Bobby Aquino MD February 16, 2018 14:25
--- NOTE | 2018-02-16 14:46 | Diagnostic Imaging Report ---
Indication: Dyspnea Technique: XRAY Chest 1v Comparison: None Findings: Right size and mediastinal contours are stable. Tracheostomy tube in place. Gastrostomy tube partially visualized. There is left medial basilar atelectasis. No pleural effusion or pneumothorax. Osseous structures stable. Impression: Left medial basilar likely atelectasis. Correlate clinically.
--- NOTE | 2018-02-16 14:49 | Cardiac Electrophysiology PN ---
Subjective Subjective [id number] Objective Last 24 Hour Vital Signs Date Time Temp Pulse Resp B/P (MAP) Pulse Ox O2 Delivery O2 Flow Rate FiO2 02/16/18 13:39 98 T-piece 6.0 28 02/16/18 13:38 T-piece 6.0 28 02/16/18 12:00 103 02/16/18 11:51 97 02/16/18 11:45 99.5 97 20 112/70 100 Trach Collar 6.0 28 99.5 02/16/18 08:55 114 104/43 02/16/18 08:00 98.6 114 20 104/43 97 Trach Collar 6.0 28 98.6 02/16/18 08:00 110 02/16/18 07:10 T-piece 6.0 28 02/16/18 07:09 98 T-piece 6.0 28 02/16/18 07:08 98 22 T-piece 6.0 28 02/16/18 04:00 94 02/16/18 04:00 98.7 103 21 128/68 18 Trach Collar 2.0 98.7 02/16/18 00:58 T-piece 6.0 28 02/16/18 00:58 98 T-piece 6.0 28 02/16/18 00:00 106 02/16/18 00:00 98.8 106 20 122/66 17 Trach Collar 2.0 98.8 02/16/18 00:00 124 02/15/18 21:37 97 132/71 02/15/18 20:00 98.9 115 22 116/78 97 Trach Collar 2.0 98.9 02/15/18 19:09 97 T-piece 6.0 28 02/15/18 19:09 97 24 T-piece 6.0 28 02/15/18 19:09 T-piece 6.0 28 02/15/18 16:30 98.2 134 25 127/76 97 Trach Collar 2.0 98.2 02/15/18 16:00 121 Intake and Output 02/15/18 02/16/18 19:00 07:00 Intake Total 970 ml 1705 ml Output Total 1200 ml 800 ml Balance -230 ml 905 ml Intake Free Water 50 ml IV Total 660 ml 955 ml Tube Feeding 310 ml 700 ml Output Urine Total 1200 ml 800 ml # Bowel Movements 4 4 Laboratory Tests Test 02/16/18 08:46 5/14/18 10:05 Arterial Blood pH 7.480 (7.350-7.450) Arterial Blood Partial Pressure CO2 38.2 mmHg (35.0-45.0) Arterial Blood Partial Pressure O2 134.2 mmHg (75.0-100.0) H Arterial Blood HCO3 28.3 mmol/L (22.0-26.0) H Arterial Blood Oxygen Saturation 98.2 % (92.0-98.0) H Arterial Blood Base Excess 4.7 Hung Test Positive White Blood Count 12.0 K/UL (4.8-10.8) #H Red Blood Count 2.99 M/UL (4.20-5.40) L Hemoglobin 9.0 G/DL (12.0-16.0) #L Hematocrit 27.3 % (37.0-47.0) L Mean Corpuscular Volume 91 FL (80-99) Mean Corpuscular Hemoglobin 30.2 PG (27.0-31.0) Mean Corpuscular Hemoglobin Concent 33.2 G/DL (32.0-36.0) Red Cell Distribution Width 12.8 % (11.6-14.8) Platelet Count 261 K/UL (150-450) Mean Platelet Volume 8.1 FL (6.5-10.1) Neutrophils (%) (Auto) 73.7 % (45.0-75.0) Lymphocytes (%) (Auto) 15.9 % (20.0-45.0) L Monocytes (%) (Auto) 5.4 % (1.0-10.0) Eosinophils (%) (Auto) 4.4 % (0.0-3.0) H Basophils (%) (Auto) 0.7 % (0.0-2.0) Sodium Level 138 MMOL/L (136-145) Potassium Level 3.2 MMOL/L (3.5-5.1) L Chloride Level 102 MMOL/L (98-107) Carbon Dioxide Level 28 MMOL/L (21-32) Anion Gap 8 mmol/L (5-15) Blood Urea Nitrogen 17 mg/dL (7-18) Creatinine 0.7 MG/DL (0.55-1.30) # Estimat Glomerular Filtration Rate > 60 mL/min (>60) Glucose Level 127 MG/DL (74-106) H Uric Acid 4.3 MG/DL (2.6-7.2) Calcium Level 8.8 MG/DL (8.5-10.1) Phosphorus Level 2.8 MG/DL (2.5-4.9) Magnesium Level 2.0 MG/DL (1.8-2.4) Iron Level 30 ug/dL (50-175) L Total Iron Binding Capacity 343 ug/dL (250-450) Percent Iron Saturation 9 % (15-50) L Unsaturated Iron Binding 313 ug/dL (112-346) Ferritin 190 NG/ML (8-388) Total Bilirubin 0.3 MG/DL (0.2-1.0) Aspartate Amino Transf (AST/SGOT) 30 U/L (15-37) Alanine Aminotransferase (ALT/SGPT) 63 U/L (12-78) Alkaline Phosphatase 80 U/L (46-116) C-Reactive Protein, Quantitative 14.0 mg/dL (0.00-0.90) H Pro-B-Type Natriuretic Peptide 158 pg/mL (0-125) H Total Protein 7.2 G/DL (6.4-8.2) Albumin 2.9 G/DL (3.4-5.0) L Globulin 4.3 g/dL Albumin/Globulin Ratio 0.7 (1.0-2.7) L Vitamin B12 Level 741 PG/ML (193-986) Folate 26.9 NG/ML (8.6-58.9) Random Vancomycin Level < 2.0 ug/mL Digoxin Level 0.5 NG/ML (0.9-2.0) L Microbiology Date/Time Source Procedure Growth Status 02/15/18 00:15 Blood Blood Culture - Preliminary NO GROWTH AFTER 24 HOURS Resulted 02/15/18 00:00 Blood Blood Culture - Preliminary NO GROWTH AFTER 24 HOURS Resulted 02/15/18 14:00 Indwelling Cath Urine Culture - Preliminary NO GROWTH Resulted 02/15/18 00:15 Urine,Clean Catch Urine Culture - Preliminary Resulted Dat Oh MD February 16, 2018 14:49
[2018-02-16 16:00] VITALS: BP 121/74
[2018-02-16] MEDS ORDERED: Tubing IV Secondary IV ONE (17:02)
[2018-02-16] MEDS ORDERED: D5 1/2NS 1000ml IV ONE (17:02)
[2018-02-16 20:00] VITALS: BP 110/70
--- NOTE | 2018-02-16 20:00 | Consultation ---
DATE OF CONSULTATION: 02/16/2018 INFECTIOUS DISEASE CONSULTATION CONSULTING PHYSICIAN: Bobby Aquino M.D. REFERRING PHYSICIAN: Jonnathan Mcgrath M.D. REASON FOR CONSULTATION: Evaluation of the patient for UTI, sepsis, antibiotic management. HISTORY OF PRESENT ILLNESS: The patient is a 47-year-old female with multiple medical problems, who was admitted to this medical center due to fever and hematuria. The patient is not able to provide information. The patient was admitted with impression of urinary tract infection, also pyelonephritis, and Infectious Disease consultation has been requested for further evaluation of the patient and antibiotic management. PAST MEDICAL HISTORY: Significant for: 1. Chronic encephalopathy/anoxic brain injury. 2. History of vent-dependent respiratory failure. 3. Status post PEG and trach. 4. Hypertension. 5. Seizure disorder. 6. Hydrocephalus. MEDICATIONS: Vancomycin and cefepime. ALLERGIES: Penicillin. SOCIAL HISTORY: The patient lives in a [facility]ci. PHYSICAL EXAMINATION: VITAL SIGNS: Temperature 99.5 degrees, blood pressure 112/70, pulse 86, respiratory rate 18. T-max at time of admission was 101.8 degrees. HEENT: No pale conjunctivae. No icterus. NECK: Trach in place. CHEST: Coarse breathing sounds. HEART: S1 and S2. ABDOMEN: Soft, obese, and nondistended. EXTREMITIES: No cyanosis at this time. SKIN: No decubitus. NEUROLOGIC: Nonverbal. LABORATORY AND DIAGNOSTIC DATA: White blood cells at the time of admission was 28 and today it is 12, hemoglobin 9, and platelets 261,000. UA, too numerous to count red blood cells and 30-40 white blood cells. BUN 17 and creatinine 0.7. ALT, AST, and alkaline phosphatase unremarkable. Urine culture, no growth so far. Blood culture is pending. CT SCAN OF ABDOMEN: 1. Trace pleural effusion. 2. Left greater than right hydronephrosis and hydroureter/no urinary stone. 3. Cholelithiasis. Chest x-ray, bibasilar atelectasis. ASSESSMENT: The patient is a 47-year-old female with: 1. Fever. 2. Leukocytosis. 3. Sepsis. 4. Rule out bacteremia. 5. Doubt pneumonia. PLAN: 1. We will continue the patient on vancomycin and cefepime for now. 2. Monitor CBC. 3. Monitor BMP. 4. Monitor cultures (blood, sputum, urine). 5. Monitor chest x-ray. 6. Based on the patient's clinical course and labs, we will do further recommendation. Thank you, Dr. Mcgrath, for allowing me to participate in the care of this patient. I will follow the patient with you during this hospitalization. Bobby Aquino M.D. DR: GWYN JOB#: [id number] CC:
--- NOTE | 2018-02-16 20:00 | Consultation ---
DATE OF CONSULTATION: 02/16/2018 CARDIOLOGY CONSULTATION CONSULTING PHYSICIAN: Dat Oh M.D. REQUESTING PHYSICIAN: Jak Damon M.D. REASON FOR CONSULTATION: Tachycardia. HISTORY OF PRESENT ILLNESS: The patient is a 47-year-old lady with ventilator-dependent respiratory failure, status post tracheostomy, in a vegetative state, who has also dysphagia, status post PEG placement with seizure disorder, was brought in by ambulance from custodial with fever, abdominal distention, and hematuria. The patient is unable to provide any information. Information was obtained from the chart as well as interviewing the patient's nurse. The patient was also tachycardic with the heart rate almost in the 140s and a Cardiology consultation was obtained for further evaluation. PAST MEDICAL HISTORY: As mentioned above. MEDICATIONS: Digoxin, Coreg, losartan, and magnesium in addition to current IV antibiotic therapy that was started by Infectious Disease specialist. FAMILY HISTORY: Noncontributory. SOCIAL HISTORY: She is a custodial resident. REVIEW OF SYSTEMS: Cannot be obtained. PHYSICAL EXAMINATION: VITAL SIGNS: Blood pressure is 112/70; pulse is 103, earlier was 140; and temperature 99.5. HEAD AND NECK: Showed no JVD. Status post tracheostomy. LUNGS: Coarse rhonchi. CARDIOVASCULAR: Tachycardic. S1 and S2 with no gallop. ABDOMEN: Status post G-tube. EXTREMITIES: 1+ pitting edema. LABORATORY AND DIAGNOSTIC DATA: Her labs show white count of 28,000 that went down to 12,000, hemoglobin of 9, hematocrit of 27.3, and platelet count is 261,000. Sodium of 138, potassium 3.2, BUN of 17, creatinine 0.7, and glucose of 127. Lactic acid was 3.0, now is 2.6. Troponin is negative. ASSESSMENT AND PLAN: 1. Tachycardia with the heart rate up to 140 beats per minute. This is likely due to the patient's sepsis and anemia. No evidence of atrial fibrillation. However, the patient is already on digoxin and metoprolol that will be resumed. Her digoxin level is only 0.5. 2. Hypertension, on Coreg 3.125 mg b.i.d. 3. Nonspecific ST-T wave abnormalities. Continue Coreg. 4. Ventilator-dependent respiratory failure, status post tracheostomy. 5. Dysphagia, status post percutaneous endoscopic gastrostomy placement. 6. Seizure disorder. 7. Hydrocephalus. Thank you very much, Dr. Damon, for allowing me to participate in the care of this patient. Please do not hesitate to contact me for any questions regarding my evaluation. Dat Oh M.D. DR: GUILLERMINA JOB#: [id number] CC:
[2018-02-16] MEDS ORDERED: NS w/KCl 20mEq 1,000 ML IV SCH (21:00)
[2018-02-17] VITALS: BP 106/65
[2018-02-17] MEDS ORDERED: Vancomycin 1250mg/D5W 250ml IVPB SCH ×2 (01:00→17:00)
[2018-02-17 04:00] VITALS: BP 125/58
[2018-02-17 06:29] LABS: BASOPHILS % (AUTO) 1.2 % (0.0-2.0); EOSINOPHILS % (AUTO) 5.8 % (0.0-3.0); HEMATOCRIT 26.6 % (37.0-47.0); HEMOGLOBIN 8.8 G/DL (12.0-16.0); LYMPHOCYTES % (AUTO) 23.6 % (20.0-45.0); MEAN CORPUSCULAR VOLUME 91 FL (80-99); MONOCYTES % (AUTO) 5.3 % (1.0-10.0); NEUTROPHILS % (AUTO) 64.1 % (45.0-75.0); PLATELET COUNT 276 K/UL (150-450); RED BLOOD COUNT 2.92 M/UL (4.20-5.40); RED CELL DISTRIBUTION WIDTH 12.3 % (11.6-14.8); WHITE BLOOD COUNT 10.5 K/UL (4.8-10.8)
[2018-02-17 06:50] LABS: ALANINE AMINOTRANSFERASE 51 U/L (12-78); ALBUMIN 2.8 G/DL (3.4-5.0); ALBUMIN/GLOBULIN RATIO 0.7 (1.0-2.7); ALKALINE PHOSPHATASE 71 U/L (46-116); ANION GAP 10 mmol/L (5-15); ASPARTATE AMINO TRANSFERASE 39 U/L (15-37); BILIRUBIN,TOTAL 0.4 MG/DL (0.2-1.0); BLOOD UREA NITROGEN 13 mg/dL (7-18); CARBON DIOXIDE 26 MMOL/L (21-32); CHLORIDE 102 MMOL/L (98-107); CHOLESTEROL 154 MG/DL (< 200); CREATININE 0.6 MG/DL (0.55-1.30); HDL CHOLESTEROL 42 MG/DL (40-60); POTASSIUM 4.2 MMOL/L (3.5-5.1); SODIUM 138 MMOL/L (136-145); TRIGLYCERIDES 219 MG/DL (30-150)
[2018-02-17 07:21] LABS: CREATINE KINASE 63 U/L (26-308); GAMMA GLUTAMYL TRANSPEPTIDASE 150 U/L (5-85); PHOSPHORUS 4.2 MG/DL (2.5-4.9)
[2018-02-17 08:00] VITALS: BP 110/66
[2018-02-17] MEDS: Multivitamin w/Minerals tab ORAL SCH (09:00)
[2018-02-17] MEDS: Lactulose 20gm/30ml UDC GT SCH ×2 (09:23→18:28)
[2018-02-17] MEDS: levETIRAcetam 500mg/5ml Liquid GT SCH ×2 (09:27→22:49)
[2018-02-17] MEDS: Vitamin A&D Oint 2oz Tube TOPIC SCH ×2 (09:28→22:50)
[2018-02-17] MEDS: Heparin 5000 units/ml inj SUBQ SCH ×2 (09:30→23:13)
--- NOTE | 2018-02-17 09:30 | Consultation ---
DATE OF CONSULTATION: 02/16/2018 "NOTE: POOR AUDIO" HEMATOLOGY/ONCOLOGY CONSULTATION CONSULTING PHYSICIAN: Aaron Schmidt M.D. REQUESTING PHYSICIAN: Jak Damon M.D. REASON FOR CONSULTATION: Evaluation of leukocytosis and anemia. IDENTIFYING DATA: Dear Dr. Damon, The patient is a pleasant 47-year-old female with past medical history significant for seizure disorder, vegetative state, status post trach, respiratory status, i.e., chronic respiratory failure, status post trach at this time presents with fevers and chills, abdominal distention, hematuria, respiratory failure, status post tracheostomy. Unable to obtain any further history from the patient. Reviewed the patient's medical chart, noted to have the element of anemia, which is acute onset in addition to presentation of leukocytosis. Hematology/Oncology Service consulted for evaluation of potential leukemia and also evaluation of reason for anemia. PAST MEDICAL HISTORY: Vegetative state, status post trach, status post PEG. ALLERGIES: Penicillin. MEDICATIONS: Coreg, nitroglycerin, digoxin, , heparin, REVIEW OF SYSTEMS: Difficult to obtain due to the patient's mental status. PHYSICAL EXAMINATION: GENERAL: No distress. VITAL SIGNS: Reviewed. CARDIOVASCULAR: Regular rate. No S3 or S4. ABDOMEN: Soft and nontender, nondistended. EXTREMITIES: No cyanosis or edema. LABORATORY AND DIAGNOSTIC DATA: B12 01:31. CRP 14. BNP 138. Lactic acid improving 2.6. BUN of 17 and creatinine 0.7. INR 0.9. WBC of 28,000 and hemoglobin of currently 9 decreased from 13 so drop in hemoglobin. ASSESSMENT AND RECOMMENDATIONS: 1. Anemia likely secondary to anemia of iron deficiency. We will begin the patient on IV iron. The patient's TIBC is elevated and transfuse if hemoglobin less than 7. 2. Anemia due to hemodilution. Continue closely monitor fluid status. 3. Leukocytosis secondary to underlying infection. 4. Potential right hydronephrosis, urinary infection. 5. Potential ileus. 6. Chronic respiratory failure, status post tracheostomy. 7. Hypertension, systolic blood pressure goal less than 140. 8. jail resident. 9. Dysphagia status post PEG tube. I appreciate the consultation. Aaron Schmidt M.D. DR: LEON JOB#: [id number] CC:
--- NOTE | 2018-02-17 10:22 | Pulmonology Progress Note ---
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, 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, 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 Subjective ROS Limited/Unobtainable: Yes Constitutional: Reports: no symptoms HEENT: Repors: no symptoms Respiratory: Reports: no symptoms Cardiovascular: Reports: no symptoms Allergies: Coded Allergies: PENICILLINS (Verified Allergy, Unknown, 02/14/18) Objective Last 24 Hour Vital Signs Date Time Temp Pulse Resp B/P (MAP) Pulse Ox O2 Delivery O2 Flow Rate FiO2 02/17/18 09:26 102 110/66 02/17/18 09:24 102 02/17/18 08:00 98.8 102 4 110/66 99 Trach Collar 6.0 28 98.8 02/17/18 07:59 112 22 T-piece 6.0 28 02/17/18 07:55 T-piece 6.0 28 02/17/18 07:50 99 T-piece 6.0 28 02/17/18 04:00 99.9 89 4 125/58 98 Trach Collar 6.0 28 99.9 02/17/18 03:41 108 02/17/18 01:29 T-piece 6.0 28 02/17/18 01:29 99 T-piece 6.0 28 02/17/18 00:00 99.1 99 26 106/65 99 Trach Collar 6.0 28 99.1 02/16/18 23:36 102 02/16/18 21:01 109 110/70 02/16/18 20:00 98.2 109 28 110/70 98 Trach Collar 6.0 28 98.2 02/16/18 19:00 T-piece 6.0 28 02/16/18 19:00 106 22 T-piece 6.0 28 02/16/18 19:00 98 T-piece 6.0 28 02/16/18 16:00 104 02/16/18 16:00 98.8 108 20 121/74 100 Trach Collar 6.0 28 98.8 02/16/18 13:39 98 T-piece 6.0 28 02/16/18 13:38 T-piece 6.0 28 02/16/18 12:00 103 02/16/18 11:51 97 02/16/18 11:45 99.5 97 20 112/70 100 Trach Collar 6.0 28 99.5 Intake and Output 02/16/18 02/17/18 19:00 07:00 Intake Total 1090 ml 1695.000 ml Output Total 753 ml 1250 ml Balance 337 ml 445.000 ml Intake Free Water 300 ml 100 ml IV Total 1245.000 ml Tube Feeding 550 ml 350 ml Other 240 ml Output Urine Total 750 ml 1250 ml Stool Total 3 ml # Bowel Movements 4 General Appearance: WD/WN HEENT: normocephalic Respiratory/Chest: crackles/rales Breasts: no masses Cardiovascular: normal peripheral pulses, normal rate Abdomen: normal bowel sounds, soft, non tender Genitourinary: normal external genitalia Extremities: no cyanosis Skin: no rash Neurologic/Psychiatric: manager film [id number] grossly normal Lymphatic: no neck adenopathy Microbiology Date/Time Source Procedure Growth Status 02/15/18 10:10 Blood Blood Culture - Preliminary NO GROWTH AFTER 24 HOURS Resulted 02/15/18 10:00 Blood Blood Culture - Preliminary NO GROWTH AFTER 24 HOURS Resulted 02/15/18 00:15 Blood Blood Culture - Preliminary NO GROWTH AFTER 48 HOURS Resulted 02/15/18 00:00 Blood Blood Culture - Preliminary NO GROWTH AFTER 48 HOURS Resulted 02/15/18 01:20 Nasal Nares MRSA Culture - Final NO METHICILLIN RESISTANT STAPH AUREUS... Complete 02/15/18 14:00 Indwelling Cath Urine Culture - Preliminary Mixed Urogenital Contaminants Resulted 02/15/18 00:15 Urine,Clean Catch Urine Culture - Preliminary Gram Negative Bacillus 1 Gram Negative Bacillus 2 Resulted 02/15/18 01:20 Rectum VRE Culture - Final Enterococcus Faecalis - Vre Complete Laboratory Tests 02/17/18 05:10: White Blood Count 10.5, Red Blood Count 2.92L, Hemoglobin 8.8L, Hematocrit 26.6L , Mean Corpuscular Volume 91, Mean Corpuscular Hemoglobin 30.3, Mean Corpuscular Hemoglobin Concent 33.3, Red Cell Distribution Width 12.3, Platelet Count 276, Mean Platelet Volume 8.2, Neutrophils (%) (Auto) 64.1, Lymphocytes (% ) (Auto) 23.6, Monocytes (%) (Auto) 5.3, Eosinophils (%) (Auto) 5.8H, Basophils (%) (Auto) 1.2, Sodium Level 138, Potassium Level 4.2, Chloride Level 102, Carbon Dioxide Level 26, Anion Gap 10, Blood Urea Nitrogen 13, Creatinine 0.6, Estimat Glomerular Filtration Rate > 60, Glucose Level 103, Hemoglobin A1c 5.1, Uric Acid 4.2, Calcium Level 9.0, Phosphorus Level 4.2, Magnesium Level 2.1, Total Bilirubin 0.4, Gamma Glutamyl Transpeptidase 150H, Aspartate Amino Transf (AST/SGOT) 39H, Alanine Aminotransferase (ALT/SGPT) 51, Alkaline Phosphatase 71 , Total Creatine Kinase 63, Pro-B-Type Natriuretic Peptide 138H, Total Protein 7.0, Albumin 2.8L, Globulin 4.2, Albumin/Globulin Ratio 0.7L, Triglycerides Level 219H, Cholesterol Level 154, LDL Cholesterol 93, HDL Cholesterol 42, Cholesterol/HDL Ratio 3.7, Thyroid Stimulating Hormone (TSH) 0.963 Current Medications Medications (Trade) Dose Ordered Sig/Bere Route PRN Reason Start Time Stop Time Status Last Admin Dose Admin Bisacodyl (Dulcolax) 10 mg DAILY RECTAL 02/15/18 09:00 03/17/18 08:59 02/17/18 09:23 Carvedilol (Coreg) 3.125 mg EVERY 12 HOURS GT 02/15/18 09:00 03/17/18 08:59 02/17/18 09:26 Cefepime HCl 2 gm/ Dextrose 55 ml @ 110 mls/hr Q24H IV 02/15/18 12:00 02/22/18 11:59 02/16/18 11:52 Dextrose (Dextrose 50%) 25 ml STAT PRN IV Hypoglycemia 02/15/18 07:15 03/17/18 07:14 Dextrose (Dextrose 50%) 50 ml STAT PRN IV Hypoglycemia 02/15/18 07:15 03/17/18 07:14 Digoxin (Lanoxin) 0.25 mg DAILY PEG 02/17/18 09:00 03/19/18 08:59 02/17/18 09:24 Famotidine (Pepcid) 20 mg BID GT 02/15/18 09:00 03/17/18 08:59 02/17/18 09:24 Heparin Sodium (Porcine) (Heparin 5000 units/ml) 5,000 units EVERY 12 HOURS SUBQ 02/16/18 09:00 03/18/18 08:59 02/17/18 09:30 Ipratropium [place] (Atrovent) 500 mcg EVERY 2 HOURS PRN HHN Shortness of Breath 02/15/18 07:45 02/20/18 07:44 02/15/18 07:49 Iron Sucrose 100 mg/Sodium Chloride 60 ml @ 240 mls/hr BEDTIME IVPB 02/17/18 21:00 02/18/18 20:59 UNV Iron Sucrose 200 mg/Sodium Chloride 120 ml @ 240 mls/hr ONCE ONCE IVPB 02/17/18 09:30 02/17/18 09:59 UNV Lactulose (Cephulac) 20 gm BID GT 02/15/18 09:00 03/17/18 08:59 02/17/18 09:23 Levetiracetam (Keppra) 750 mg EVERY 12 HOURS GT 02/15/18 09:00 03/17/18 08:59 02/17/18 09:27 Magnesium Hydroxide (Mom) 30 ml DAILY PRN GT Constipation 02/15/18 07:00 03/17/18 06:59 Metronidazole 100 ml @ 100 mls/hr Q12HR IVPB 02/15/18 09:00 02/22/18 08:59 02/17/18 09:25 Multivitamins Therapeutic (Therapeutic Multivitamin) 1 ea DAILY ORAL 02/15/18 09:00 03/17/18 08:59 02/17/18 09:00 Sodium Chloride 1,000 ml @ 75 mls/hr [id number] IV 02/16/18 21:00 03/18/18 20:59 02/16/18 21:04 Vancomycin HCl (Vanco rx to dose) 1 ea DAILY PRN MISC Per rx protocol 02/15/18 06:45 03/17/18 06:44 Vancomycin HCl/ Dextrose 250 ml @ 166.667 mls/hr Q12HR@0100,1300 IVPB 02/17/18 01:00 02/22/18 00:59 02/17/18 00:49 Vitamin A/Vitamin D (A & D Oint) 1 applic EVERY 12 HOURS TOPIC 02/15/18 09:00 03/17/18 08:59 02/17/18 09:28 Trisha Soto MD February 17, 2018 10:22
--- NOTE | 2018-02-17 11:28 | Nephrology Progress Note ---
Assessment/Plan Problem List: (1) Acute renal failure (ARF) (2) Respiratory failure (3) Seizure disorder (4) Pneumonia (5) Urinary retention Assessment acuter renal failure- resolved Urinary retention Dehydration Sepsis- Pneumonia and UTI, High Lactate Chronic respiratory failure- At Fib Sz disorder- Hydrocephalus Anemia Plan stop Hydrate- more dig higher dose of coreg IV Iron Antibiotics- Baxter- Monitor renal parameters Avoid Nephrotoxics per orders Subjective ROS Limited/Unobtainable: No Constitutional: Reports: malaise Objective Objective Last 24 Hour Vital Signs Date Time Temp Pulse Resp B/P (MAP) Pulse Ox O2 Delivery O2 Flow Rate FiO2 02/17/18 09:26 102 110/66 02/17/18 09:24 102 02/17/18 08:00 98.8 102 4 110/66 99 Trach Collar 6.0 28 98.8 02/17/18 07:59 112 22 T-piece 6.0 28 02/17/18 07:55 T-piece 6.0 28 02/17/18 07:50 99 T-piece 6.0 28 02/17/18 04:00 99.9 89 4 125/58 98 Trach Collar 6.0 28 99.9 02/17/18 03:41 108 02/17/18 01:29 T-piece 6.0 28 02/17/18 01:29 99 T-piece 6.0 28 02/17/18 00:00 99.1 99 26 106/65 99 Trach Collar 6.0 28 99.1 02/16/18 23:36 102 02/16/18 21:01 109 110/70 02/16/18 20:00 98.2 109 28 110/70 98 Trach Collar 6.0 28 98.2 02/16/18 19:00 T-piece 6.0 28 02/16/18 19:00 106 22 T-piece 6.0 28 02/16/18 19:00 98 T-piece 6.0 28 02/16/18 16:00 104 02/16/18 16:00 98.8 108 20 121/74 100 Trach Collar 6.0 28 98.8 02/16/18 13:39 98 T-piece 6.0 28 02/16/18 13:38 T-piece 6.0 28 02/16/18 12:00 103 02/16/18 11:51 97 02/16/18 11:45 99.5 97 20 112/70 100 Trach Collar 6.0 28 99.5 Intake and Output 02/16/18 02/17/18 19:00 07:00 Intake Total 1090 ml 1695.000 ml Output Total 753 ml 1250 ml Balance 337 ml 445.000 ml Intake Free Water 300 ml 100 ml IV Total 1245.000 ml Tube Feeding 550 ml 350 ml Other 240 ml Output Urine Total 750 ml 1250 ml Stool Total 3 ml # Bowel Movements 4 Laboratory Tests 02/17/18 05:10: White Blood Count 10.5, Red Blood Count 2.92L, Hemoglobin 8.8L, Hematocrit 26.6L , Mean Corpuscular Volume 91, Mean Corpuscular Hemoglobin 30.3, Mean Corpuscular Hemoglobin Concent 33.3, Red Cell Distribution Width 12.3, Platelet Count 276, Mean Platelet Volume 8.2, Neutrophils (%) (Auto) 64.1, Lymphocytes (% ) (Auto) 23.6, Monocytes (%) (Auto) 5.3, Eosinophils (%) (Auto) 5.8H, Basophils (%) (Auto) 1.2, Sodium Level 138, Potassium Level 4.2, Chloride Level 102, Carbon Dioxide Level 26, Anion Gap 10, Blood Urea Nitrogen 13, Creatinine 0.6, Estimat Glomerular Filtration Rate > 60, Glucose Level 103, Hemoglobin A1c 5.1, Uric Acid 4.2, Calcium Level 9.0, Phosphorus Level 4.2, Magnesium Level 2.1, Total Bilirubin 0.4, Gamma Glutamyl Transpeptidase 150H, Aspartate Amino Transf (AST/SGOT) 39H, Alanine Aminotransferase (ALT/SGPT) 51, Alkaline Phosphatase 71 , Total Creatine Kinase 63, Pro-B-Type Natriuretic Peptide 138H, Total Protein 7.0, Albumin 2.8L, Globulin 4.2, Albumin/Globulin Ratio 0.7L, Triglycerides Level 219H, Cholesterol Level 154, LDL Cholesterol 93, HDL Cholesterol 42, Cholesterol/HDL Ratio 3.7, Thyroid Stimulating Hormone (TSH) 0.963 Height (Feet): 5 Height (Inches): 5.00 Weight (Pounds): 150 General Appearance: no apparent distress Cardiovascular: tachycardia Respiratory/Chest: decreased breath sounds Abdomen: distended PATRICIO KNUTSON February 17, 2018 11:28
[2018-02-17 12:00] VITALS: BP 102/66
[2018-02-17] MEDS ORDERED: Iron Sucrose 200 MG in NS 110 ML IV ONE (12:00)
[2018-02-17] MEDS ORDERED: Digoxin Elixir 0.125mg NG ONE (13:05)
[2018-02-17] MEDS: Cefepime HCl 2 GM in D5W 55 ML IV SCH (13:14)
--- NOTE | 2018-02-17 13:27 | Infectious Diseases Prog Note ---
Assessment/Plan Assessment/Plan ASSESSMENT: The patient is a 47-year-old female with: Fever Leukocytosis Sepsis Rule out bacteremia, Doubt pneumonia CXR : bibasilar atelectasis. Probable UTI Ucx : 40K , GNR x 2 CT: Trace pleural effusion. Left greater than right hydronephrosis and hydroureter/no urinary stone. Cholelithiasis. Chronic encephalopathy/anoxic brain injury. History of vent-dependent respiratory failure. Status post PEG and trach. Hypertension. Seizure disorder. Hydrocephalus. PLAN: continue the patient on vancomycin and cefepime d# 2 ( may stop Vanco in AM ) Monitor CBC. Monitor BMP. Monitor cultures (blood, sputum, urine). Monitor chest x-ray.tract Subjective Allergies: Coded Allergies: PENICILLINS (Verified Allergy, Unknown, 02/14/18) Subjective comfortable Objective Vital Signs Last 24 Hour Vital Signs Date Time Temp Pulse Resp B/P (MAP) Pulse Ox O2 Delivery O2 Flow Rate FiO2 02/17/18 09:26 102 110/66 02/17/18 09:24 102 02/17/18 08:00 98 02/17/18 08:00 98.8 102 4 110/66 99 Trach Collar 6.0 28 98.8 02/17/18 07:59 112 22 T-piece 6.0 28 02/17/18 07:55 T-piece 6.0 28 02/17/18 07:50 99 T-piece 6.0 28 02/17/18 04:00 99.9 89 4 125/58 98 Trach Collar 6.0 28 99.9 02/17/18 03:41 108 02/17/18 01:29 T-piece 6.0 28 02/17/18 01:29 99 T-piece 6.0 28 02/17/18 00:00 99.1 99 26 106/65 99 Trach Collar 6.0 28 99.1 02/16/18 23:36 102 02/16/18 21:01 109 110/70 02/16/18 20:00 98.2 109 28 110/70 98 Trach Collar 6.0 28 98.2 02/16/18 19:00 T-piece 6.0 28 02/16/18 19:00 106 22 T-piece 6.0 28 02/16/18 19:00 98 T-piece 6.0 28 02/16/18 16:00 104 02/16/18 16:00 98.8 108 20 121/74 100 Trach Collar 6.0 28 98.8 02/16/18 13:39 98 T-piece 6.0 28 02/16/18 13:38 T-piece 6.0 28 Height (Feet): 5 Height (Inches): 5.00 Weight (Pounds): 150 HEENT: anicteric Respiratory/Chest: normal breath sounds Cardiovascular: regular rhythm Abdomen: no organomegaly Microbiology Date/Time Source Procedure Growth Status 02/15/18 10:10 Blood Blood Culture - Preliminary NO GROWTH AFTER 24 HOURS Resulted 02/15/18 10:00 Blood Blood Culture - Preliminary NO GROWTH AFTER 24 HOURS Resulted 02/15/18 00:15 Blood Blood Culture - Preliminary NO GROWTH AFTER 48 HOURS Resulted 02/15/18 00:00 Blood Blood Culture - Preliminary NO GROWTH AFTER 48 HOURS Resulted 02/15/18 14:00 Sputum Gram Stain - Final Resulted 02/15/18 14:00 Sputum Sputum Culture Pending Resulted 02/15/18 01:20 Nasal Nares MRSA Culture - Final NO METHICILLIN RESISTANT STAPH AUREUS... Complete 02/15/18 14:00 Indwelling Cath Urine Culture - Preliminary Mixed Urogenital Contaminants Resulted 02/15/18 00:15 Urine,Clean Catch Urine Culture - Preliminary Gram Negative Bacillus 1 Gram Negative Bacillus 2 Resulted 02/15/18 01:20 Rectum VRE Culture - Final Enterococcus Faecalis - Vre Complete Laboratory Tests Test 02/17/18 05:10 White Blood Count 10.5 K/UL (4.8-10.8) Red Blood Count 2.92 M/UL (4.20-5.40) L Hemoglobin 8.8 G/DL (12.0-16.0) L Hematocrit 26.6 % (37.0-47.0) L Mean Corpuscular Volume 91 FL (80-99) Mean Corpuscular Hemoglobin 30.3 PG (27.0-31.0) Mean Corpuscular Hemoglobin Concent 33.3 G/DL (32.0-36.0) Red Cell Distribution Width 12.3 % (11.6-14.8) Platelet Count 276 K/UL (150-450) Mean Platelet Volume 8.2 FL (6.5-10.1) Neutrophils (%) (Auto) 64.1 % (45.0-75.0) Lymphocytes (%) (Auto) 23.6 % (20.0-45.0) Monocytes (%) (Auto) 5.3 % (1.0-10.0) Eosinophils (%) (Auto) 5.8 % (0.0-3.0) H Basophils (%) (Auto) 1.2 % (0.0-2.0) Sodium Level 138 MMOL/L (136-145) Potassium Level 4.2 MMOL/L (3.5-5.1) Chloride Level 102 MMOL/L (98-107) Carbon Dioxide Level 26 MMOL/L (21-32) Anion Gap 10 mmol/L (5-15) Blood Urea Nitrogen 13 mg/dL (7-18) Creatinine 0.6 MG/DL (0.55-1.30) Estimat Glomerular Filtration Rate > 60 mL/min (>60) Glucose Level 103 MG/DL (74-106) Hemoglobin A1c 5.1 % (4.3-6.0) Uric Acid 4.2 MG/DL (2.6-7.2) Calcium Level 9.0 MG/DL (8.5-10.1) Phosphorus Level 4.2 MG/DL (2.5-4.9) Magnesium Level 2.1 MG/DL (1.8-2.4) Total Bilirubin 0.4 MG/DL (0.2-1.0) Gamma Glutamyl Transpeptidase 150 U/L (5-85) H Aspartate Amino Transf (AST/SGOT) 39 U/L (15-37) H Alanine Aminotransferase (ALT/SGPT) 51 U/L (12-78) Alkaline Phosphatase 71 U/L (46-116) Total Creatine Kinase 63 U/L (26-308) Pro-B-Type Natriuretic Peptide 138 pg/mL (0-125) H Total Protein 7.0 G/DL (6.4-8.2) Albumin 2.8 G/DL (3.4-5.0) L Globulin 4.2 g/dL Albumin/Globulin Ratio 0.7 (1.0-2.7) L Triglycerides Level 219 MG/DL (30-150) H Cholesterol Level 154 MG/DL (< 200) LDL Cholesterol 93 mg/dL (<100) HDL Cholesterol 42 MG/DL (40-60) Cholesterol/HDL Ratio 3.7 (3.3-4.4) Thyroid Stimulating Hormone (TSH) 0.963 uiU/mL (0.358-3.740) Current Medications Medications (Trade) Dose Ordered Sig/Bere Route PRN Reason Start Time Stop Time Status Last Admin Dose Admin Bisacodyl (Dulcolax) 10 mg DAILY RECTAL 02/15/18 09:00 03/17/18 08:59 02/17/18 09:23 Carvedilol (Coreg) 6.25 mg EVERY 12 HOURS GT 02/17/18 21:00 03/17/18 08:59 Cefepime HCl 2 gm/ Dextrose 55 ml @ 110 mls/hr Q24H IV 02/15/18 12:00 02/22/18 11:59 02/17/18 13:14 Dextrose (Dextrose 50%) 25 ml STAT PRN IV Hypoglycemia 02/15/18 07:15 03/17/18 07:14 Dextrose (Dextrose 50%) 50 ml STAT PRN IV Hypoglycemia 02/15/18 07:15 03/17/18 07:14 Digoxin (Lanoxin) 0.25 mg DAILY PEG 02/17/18 09:00 03/19/18 08:59 02/17/18 09:24 Famotidine (Pepcid) 20 mg BID GT 02/15/18 09:00 03/17/18 08:59 02/17/18 09:24 Heparin Sodium (Porcine) (Heparin 5000 units/ml) 5,000 units EVERY 12 HOURS SUBQ 02/16/18 09:00 03/18/18 08:59 02/17/18 09:30 Ipratropium [place] (Atrovent) 500 mcg EVERY 2 HOURS PRN HHN Shortness of Breath 02/15/18 07:45 02/20/18 07:44 02/15/18 07:49 Lactulose (Cephulac) 20 gm BID GT 02/15/18 09:00 03/17/18 08:59 02/17/18 09:23 Levetiracetam (Keppra) 750 mg EVERY 12 HOURS GT 02/15/18 09:00 03/17/18 08:59 02/17/18 09:27 Magnesium Hydroxide (Mom) 30 ml DAILY PRN GT Constipation 02/15/18 07:00 03/17/18 06:59 Metronidazole 100 ml @ 100 mls/hr Q12HR IVPB 02/15/18 09:00 02/22/18 08:59 02/17/18 09:25 Multivitamins Therapeutic (Therapeutic Multivitamin) 1 ea DAILY ORAL 02/15/18 09:00 03/17/18 08:59 02/17/18 09:00 Vancomycin HCl (Vanco rx to dose) 1 ea DAILY PRN MISC Per rx protocol 02/15/18 06:45 03/17/18 06:44 Vancomycin HCl/ Dextrose 250 ml @ 166.667 mls/hr Q12HR@0100,1300 IVPB 02/17/18 01:00 02/22/18 00:59 02/17/18 00:49 Vitamin A/Vitamin D (A & D Oint) 1 applic EVERY 12 HOURS TOPIC 02/15/18 09:00 03/17/18 08:59 02/17/18 09:28 Bobby Aquino MD February 17, 2018 13:27
--- NOTE | 2018-02-17 14:08 | Cardiology Report ---
APPROVED REPORT EXAM: Two-dimensional and M-mode echocardiogram with Doppler and color Doppler. INDICATION Arrhythmia M-Mode DIMENSIONS IVSd1.6 (0.7-1.1cm)Left Atrium (MM)3.5 (1.6-4.0cm) LVDd4.2 (3.5-5.6cm)Aortic Root3.1 (2.0-3.7cm) PWd1.2 (0.7-1.1cm)Aortic Cusp Exc.1.8 (1.5-2.0cm) IVSs2.1 cm LVDs2.8 (2.5-4.0cm) PWs1.5 cm Normal left ventricular chamber size, systolic function and wall motion to extent visualized. Left ventricular ejection fraction estimated to be 60-65 %. Mild left ventricular hypertrophy by 2-D. No evidence of pericardial effusion. All other cardiac chamber sizes are within normal limits. Focal aortic valve sclerosis with adequate cusp excursion. Mildly Thickened mitral valve leaflets with normal excursion. Mildly Mitral annulus and aortic root calcification. Pulmonic valve not well visualized. Normal tricuspid valve structure. A color flow and spectral Doppler study was performed and revealed: No aortic regurgitation. Trace mitral regurgitation. Mitral diastolic velocities suggest reduced left ventricular relaxation c/w mild LV diastolic dysfunction (Grade I ). Trace tricuspid regurgitation. Tricuspid systolic velocities suggests peak right ventricular systolic pressure of 25 mmHg No Pulmonic regurgitation present.
--- NOTE | 2018-02-17 14:43 | Cardiology Report ---
APPROVED REPORT EKG Measurement Heart [id number] Poor data quality, interpretation may be adversely affected Supraventricular tachycardia Nonspecific ST and T wave abnormality Abnormal ECG
--- NOTE | 2018-02-17 15:13 | General Progress Note ---
Assessment/Plan Assessment/Plan ASSESSMENT AND RECOMMENDATIONS: 1. Anemia likely secondary to anemia of iron deficiency. --> due to low ferritin and elevated tibc is mixed picture --> have given iv iron and ferrous sulfate po doses as well 2. Anemia due to hemodilution. Continue closely monitor fluid status. --> hgb goal is >7 3. Leukocytosis secondary to underlying infection. 4. Potential right hydronephrosis, urinary infection. 5. Potential ileus. 6. Chronic respiratory failure, status post tracheostomy. 7. Hypertension, systolic blood pressure goal less than 140. 8. retirement resident. 9. Dysphagia status post PEG tube. I appreciate the consultation. Subjective Constitutional: Denies: no symptoms, chills, diaphoresis, fever, malaise, weakness, other HEENT: Denies: no symptoms, eye pain, blurred vision, tearing, double vision, ear pain, ear discharge, nose pain, nose congestion, throat pain, throat swelling, mouth pain, mouth swelling, other Cardiovascular: Denies: no symptoms, chest pain, edema, irregular heart rate, lightheadedness, palpitations, syncope, other Respiratory: Denies: no symptoms, cough, orthopnea, shortness of breath, SOB with excertion, SOB at rest, sputum, stridor, wheezing, other Gastrointestinal/Abdominal: Denies: no symptoms, abdomen distended, abdominal pain, black stools, tarry stools, blood in stool, constipated, diarrhea, difficulty swallowing, nausea, poor appetite, poor fluid intake, rectal bleeding , vomiting, other Genitourinary: Denies: no symptoms, burning, discharge, frequency, flank pain, hematuria, incontinence, pain, urgency, other Neurologic/Psychiatric: Denies: no symptoms, anxiety, depressed, emotional problems, headache, numbness, paresthesia, pre-existing deficit, seizure, tingling, tremors, weakness, other Endocrine: Denies: no symptoms, excessive sweating, flushing, intolerance to cold, intolerance to heat, increased hunger, increased thirst, increased urine, unexplained weight gain, unexplained weight loss, other Hematologic/Lymphatic: Denies: no symptoms, anemia, easy bleeding, easy bruising, other Allergies: Coded Allergies: PENICILLINS (Verified Allergy, Unknown, 02/14/18) Subjective no fevers or chills, somewhat weak today Objective Last 24 Hour Vital Signs Date Time Temp Pulse Resp B/P (MAP) Pulse Ox O2 Delivery O2 Flow Rate FiO2 02/17/18 14:12 105 02/17/18 13:36 T-piece 6.0 28 02/17/18 13:35 99 T-piece 6.0 28 02/17/18 09:26 102 110/66 02/17/18 09:24 102 02/17/18 08:00 98 02/17/18 08:00 98.8 102 4 110/66 99 Trach Collar 6.0 28 98.8 02/17/18 07:59 112 22 T-piece 6.0 28 02/17/18 07:55 T-piece 6.0 28 02/17/18 07:50 99 T-piece 6.0 28 02/17/18 04:00 99.9 89 4 125/58 98 Trach Collar 6.0 28 99.9 02/17/18 03:41 108 02/17/18 01:29 T-piece 6.0 28 02/17/18 01:29 99 T-piece 6.0 28 02/17/18 00:00 99.1 99 26 106/65 99 Trach Collar 6.0 28 99.1 02/16/18 23:36 102 02/16/18 21:01 109 110/70 02/16/18 20:00 98.2 109 28 110/70 98 Trach Collar 6.0 28 98.2 02/16/18 19:00 T-piece 6.0 28 02/16/18 19:00 106 22 T-piece 6.0 28 02/16/18 19:00 98 T-piece 6.0 28 02/16/18 16:00 104 02/16/18 16:00 98.8 108 20 121/74 100 Trach Collar 6.0 28 98.8 Intake and Output 02/16/18 02/17/18 19:00 07:00 Intake Total 1090 ml 1695.000 ml Output Total 753 ml 1250 ml Balance 337 ml 445.000 ml Intake Free Water 300 ml 100 ml IV Total 1245.000 ml Tube Feeding 550 ml 350 ml Other 240 ml Output Urine Total 750 ml 1250 ml Stool Total 3 ml # Bowel Movements 4 Laboratory Tests 02/17/18 05:10: White Blood Count 10.5, Red Blood Count 2.92L, Hemoglobin 8.8L, Hematocrit 26.6L , Mean Corpuscular Volume 91, Mean Corpuscular Hemoglobin 30.3, Mean Corpuscular Hemoglobin Concent 33.3, Red Cell Distribution Width 12.3, Platelet Count 276, Mean Platelet Volume 8.2, Neutrophils (%) (Auto) 64.1, Lymphocytes (% ) (Auto) 23.6, Monocytes (%) (Auto) 5.3, Eosinophils (%) (Auto) 5.8H, Basophils (%) (Auto) 1.2, Sodium Level 138, Potassium Level 4.2, Chloride Level 102, Carbon Dioxide Level 26, Anion Gap 10, Blood Urea Nitrogen 13, Creatinine 0.6, Estimat Glomerular Filtration Rate > 60, Glucose Level 103, Hemoglobin A1c 5.1, Uric Acid 4.2, Calcium Level 9.0, Phosphorus Level 4.2, Magnesium Level 2.1, Total Bilirubin 0.4, Gamma Glutamyl Transpeptidase 150H, Aspartate Amino Transf (AST/SGOT) 39H, Alanine Aminotransferase (ALT/SGPT) 51, Alkaline Phosphatase 71 , Total Creatine Kinase 63, Pro-B-Type Natriuretic Peptide 138H, Total Protein 7.0, Albumin 2.8L, Globulin 4.2, Albumin/Globulin Ratio 0.7L, Triglycerides Level 219H, Cholesterol Level 154, LDL Cholesterol 93, HDL Cholesterol 42, Cholesterol/HDL Ratio 3.7, Thyroid Stimulating Hormone (TSH) 0.963 Height (Feet): 5 Height (Inches): 5.00 Weight (Pounds): 150 General Appearance: no apparent distress EENT: normal ENT inspection Neck: normal alignment Cardiovascular: regular rhythm Respiratory/Chest: lungs clear Abdomen: non tender Extremities: non-tender Edema: 1+ Leg (L), 1+ Leg (R) Neurologic: no motor/sensory deficits Skin: normal pigmentation Aaron Schmidt MD February 17, 2018 15:13
--- NOTE | 2018-02-17 15:18 | Internal Med Progress Note ---
Subjective Physician Name Jak Damon Attending Physician Jak Damon MD Current Medications Medications (Trade) Dose Ordered Sig/Bere Route PRN Reason Start Time Stop Time Status Last Admin Dose Admin Bisacodyl (Dulcolax) 10 mg DAILY RECTAL 02/15/18 09:00 03/17/18 08:59 02/17/18 09:23 Carvedilol (Coreg) 6.25 mg EVERY 12 HOURS GT 02/17/18 21:00 03/17/18 08:59 Cefepime HCl 2 gm/ Dextrose 55 ml @ 110 mls/hr Q12H IV 02/18/18 00:00 02/22/18 00:00 Dextrose (Dextrose 50%) 25 ml STAT PRN IV Hypoglycemia 02/15/18 07:15 03/17/18 07:14 Dextrose (Dextrose 50%) 50 ml STAT PRN IV Hypoglycemia 02/15/18 07:15 03/17/18 07:14 Digoxin (Lanoxin) 0.25 mg DAILY PEG 02/17/18 09:00 03/19/18 08:59 02/17/18 09:24 Famotidine (Pepcid) 20 mg BID GT 02/15/18 09:00 03/17/18 08:59 02/17/18 09:24 Heparin Sodium (Porcine) (Heparin 5000 units/ml) 5,000 units EVERY 12 HOURS SUBQ 02/16/18 09:00 03/18/18 08:59 02/17/18 09:30 Ipratropium [place] (Atrovent) 500 mcg EVERY 2 HOURS PRN HHN Shortness of Breath 02/15/18 07:45 02/20/18 07:44 02/15/18 07:49 Lactulose (Cephulac) 20 gm BID GT 02/15/18 09:00 03/17/18 08:59 02/17/18 09:23 Levetiracetam (Keppra) 750 mg EVERY 12 HOURS GT 02/15/18 09:00 03/17/18 08:59 02/17/18 09:27 Magnesium Hydroxide (Mom) 30 ml DAILY PRN GT Constipation 02/15/18 07:00 03/17/18 06:59 Metronidazole 100 ml @ 100 mls/hr Q12HR IVPB 02/15/18 09:00 02/22/18 08:59 02/17/18 09:25 Multivitamins Therapeutic (Therapeutic Multivitamin) 1 ea DAILY ORAL 02/15/18 09:00 03/17/18 08:59 02/17/18 09:00 Vancomycin HCl (Vanco rx to dose) 1 ea DAILY PRN MISC Per rx protocol 02/15/18 06:45 03/17/18 06:44 Vancomycin HCl/ Dextrose 250 ml @ 166.667 mls/hr Q12HR@0100,1300 IVPB 02/17/18 01:00 02/22/18 00:59 02/17/18 00:49 Vitamin A/Vitamin D (A & D Oint) 1 applic EVERY 12 HOURS TOPIC 02/15/18 09:00 03/17/18 08:59 02/17/18 09:28 Allergies: Coded Allergies: PENICILLINS (Verified Allergy, Unknown, 02/14/18) Subjective on Trach collar, awake, responsive with open eyes, Unable to F/U with commands Objective Last Vital Signs Date Time Temp Pulse Resp B/P (MAP) Pulse Ox O2 Delivery O2 Flow Rate FiO2 02/17/18 14:12 105 02/17/18 13:36 T-piece 6.0 28 02/17/18 13:35 99 02/17/18 09:26 110/66 02/17/18 08:00 98.8 4 98.8 Laboratory Tests Test 02/17/18 05:10 White Blood Count 10.5 K/UL (4.8-10.8) Red Blood Count 2.92 M/UL (4.20-5.40) L Hemoglobin 8.8 G/DL (12.0-16.0) L Hematocrit 26.6 % (37.0-47.0) L Mean Corpuscular Volume 91 FL (80-99) Mean Corpuscular Hemoglobin 30.3 PG (27.0-31.0) Mean Corpuscular Hemoglobin Concent 33.3 G/DL (32.0-36.0) Red Cell Distribution Width 12.3 % (11.6-14.8) Platelet Count 276 K/UL (150-450) Mean Platelet Volume 8.2 FL (6.5-10.1) Neutrophils (%) (Auto) 64.1 % (45.0-75.0) Lymphocytes (%) (Auto) 23.6 % (20.0-45.0) Monocytes (%) (Auto) 5.3 % (1.0-10.0) Eosinophils (%) (Auto) 5.8 % (0.0-3.0) H Basophils (%) (Auto) 1.2 % (0.0-2.0) Sodium Level 138 MMOL/L (136-145) Potassium Level 4.2 MMOL/L (3.5-5.1) Chloride Level 102 MMOL/L (98-107) Carbon Dioxide Level 26 MMOL/L (21-32) Anion Gap 10 mmol/L (5-15) Blood Urea Nitrogen 13 mg/dL (7-18) Creatinine 0.6 MG/DL (0.55-1.30) Estimat Glomerular Filtration Rate > 60 mL/min (>60) Glucose Level 103 MG/DL (74-106) Hemoglobin A1c 5.1 % (4.3-6.0) Uric Acid 4.2 MG/DL (2.6-7.2) Calcium Level 9.0 MG/DL (8.5-10.1) Phosphorus Level 4.2 MG/DL (2.5-4.9) Magnesium Level 2.1 MG/DL (1.8-2.4) Total Bilirubin 0.4 MG/DL (0.2-1.0) Gamma Glutamyl Transpeptidase 150 U/L (5-85) H Aspartate Amino Transf (AST/SGOT) 39 U/L (15-37) H Alanine Aminotransferase (ALT/SGPT) 51 U/L (12-78) Alkaline Phosphatase 71 U/L (46-116) Total Creatine Kinase 63 U/L (26-308) Pro-B-Type Natriuretic Peptide 138 pg/mL (0-125) H Total Protein 7.0 G/DL (6.4-8.2) Albumin 2.8 G/DL (3.4-5.0) L Globulin 4.2 g/dL Albumin/Globulin Ratio 0.7 (1.0-2.7) L Triglycerides Level 219 MG/DL (30-150) H Cholesterol Level 154 MG/DL (< 200) LDL Cholesterol 93 mg/dL (<100) HDL Cholesterol 42 MG/DL (40-60) Cholesterol/HDL Ratio 3.7 (3.3-4.4) Thyroid Stimulating Hormone (TSH) 0.963 uiU/mL (0.358-3.740) Microbiology Date/Time Source Procedure Growth Status 02/15/18 10:10 Blood Blood Culture - Preliminary NO GROWTH AFTER 24 HOURS Resulted 02/15/18 10:00 Blood Blood Culture - Preliminary NO GROWTH AFTER 24 HOURS Resulted 02/15/18 00:15 Blood Blood Culture - Preliminary NO GROWTH AFTER 48 HOURS Resulted 02/15/18 00:00 Blood Blood Culture - Preliminary NO GROWTH AFTER 48 HOURS Resulted 02/15/18 14:00 Sputum Gram Stain - Final Resulted 02/15/18 14:00 Sputum Sputum Culture Pending Resulted 02/15/18 01:20 Nasal Nares MRSA Culture - Final NO METHICILLIN RESISTANT STAPH AUREUS... Complete 02/15/18 14:00 Indwelling Cath Urine Culture - Preliminary Mixed Urogenital Contaminants Resulted 02/15/18 00:15 Urine,Clean Catch Urine Culture - Preliminary Gram Negative Bacillus 1 Gram Negative Bacillus 2 Resulted 02/15/18 01:20 Rectum VRE Culture - Final Enterococcus Faecalis - Vre Complete Intake and Output 02/16/18 02/17/18 19:00 07:00 Intake Total 1090 ml 1695.000 ml Output Total 753 ml 1250 ml Balance 337 ml 445.000 ml Intake Free Water 300 ml 100 ml IV Total 1245.000 ml Tube Feeding 550 ml 350 ml Other 240 ml Output Urine Total 750 ml 1250 ml Stool Total 3 ml # Bowel Movements 4 Objective General: No acute distress, awake, responsive with open eyes. HEENT: NCAT, sclera anicteric, PERRL, Neck: Supple, Trach site intact. Lungs: Fair inspiratory effort, decrease breath sound on bases, no Wheeze or Rales. Heart: Regular rate and rhythm, normal S1/S2, no murmurs, distant heart sound. Abdomen: soft, nontender, nondistended. Normoactive bowel sounds, Obesity, PEG site intact. : Baxter cath. Extremities: No Cyanosis , clubbing or edema. Neuro: not verbal , unable to F/U with commands. Contracted RUE, unable to move LE's. Skin: warm, no rashes Assessment/Plan Assessment/Plan Fever and Leukocytosis possible Sepsis / bacteremia, UTI Chronic encephalopathy/anoxic brain injury. History of vent-dependent respiratory failure. Status post PEG and trach. Hypertension. Seizure disorder. Hydrocephalus. Plan: Abx: Cefepime , Flagyl, Vanco IV F/U with Labs and cultures Tube feeding @ 50 cc/hr F/U with ID recommendations. DC Planning to SNF in 2 days. Jak Damon MD February 17, 2018 15:18
[2018-02-17 16:00] VITALS: BP 109/74
[2018-02-17] MEDS ORDERED: Lidocaine 1% Plain 30 ml INJ PRN (16:15)
[2018-02-17] MEDS ORDERED: Heparin 2000 units/Ns 1000ml INJ PRN (16:15)
--- NOTE | 2018-02-17 16:58 | Cardiac Electrophysiology PN ---
Assessment/Plan Assessment/Plan 1. Sinus tachycardia with the heart rate up to 140 beats per minute. This is likely due to the patient's sepsis and anemia. No evidence of atrial fibrillation. Continue digoxin and Coreg 2. Hypertension, on Coreg 3.125 mg b.i.d. 3. Nonspecific ST-T wave abnormalities. Continue Coreg. 4. Respiratory failure, status post tracheostomy. 5. Dysphagia, status post percutaneous endoscopic gastrostomy placement. 6. Seizure disorder. 7. Hydrocephalus. LUIS RN Subjective Subjective Nonverbal. Off Vent on T tube via trach. Objective Last 24 Hour Vital Signs Date Time Temp Pulse Resp B/P (MAP) Pulse Ox O2 Delivery O2 Flow Rate FiO2 02/17/18 14:12 105 02/17/18 13:36 T-piece 6.0 28 02/17/18 13:35 99 T-piece 6.0 28 02/17/18 09:26 102 110/66 02/17/18 09:24 102 02/17/18 08:00 98 02/17/18 08:00 98.8 102 4 110/66 99 Trach Collar 6.0 28 98.8 02/17/18 07:59 112 22 T-piece 6.0 28 02/17/18 07:55 T-piece 6.0 28 02/17/18 07:50 99 T-piece 6.0 28 02/17/18 04:00 99.9 89 4 125/58 98 Trach Collar 6.0 28 99.9 02/17/18 03:41 108 02/17/18 01:29 T-piece 6.0 28 02/17/18 01:29 99 T-piece 6.0 28 02/17/18 00:00 99.1 99 26 106/65 99 Trach Collar 6.0 28 99.1 02/16/18 23:36 102 02/16/18 21:01 109 110/70 02/16/18 20:00 98.2 109 28 110/70 98 Trach Collar 6.0 28 98.2 02/16/18 19:00 T-piece 6.0 28 02/16/18 19:00 106 22 T-piece 6.0 28 02/16/18 19:00 98 T-piece 6.0 28 Intake and Output 02/16/18 02/17/18 19:00 07:00 Intake Total 1090 ml 1695.000 ml Output Total 753 ml 1250 ml Balance 337 ml 445.000 ml Intake Free Water 300 ml 100 ml IV Total 1245.000 ml Tube Feeding 550 ml 350 ml Other 240 ml Output Urine Total 750 ml 1250 ml Stool Total 3 ml # Bowel Movements 4 Laboratory Tests Test 02/17/18 05:10 White Blood Count 10.5 K/UL (4.8-10.8) Red Blood Count 2.92 M/UL (4.20-5.40) L Hemoglobin 8.8 G/DL (12.0-16.0) L Hematocrit 26.6 % (37.0-47.0) L Mean Corpuscular Volume 91 FL (80-99) Mean Corpuscular Hemoglobin 30.3 PG (27.0-31.0) Mean Corpuscular Hemoglobin Concent 33.3 G/DL (32.0-36.0) Red Cell Distribution Width 12.3 % (11.6-14.8) Platelet Count 276 K/UL (150-450) Mean Platelet Volume 8.2 FL (6.5-10.1) Neutrophils (%) (Auto) 64.1 % (45.0-75.0) Lymphocytes (%) (Auto) 23.6 % (20.0-45.0) Monocytes (%) (Auto) 5.3 % (1.0-10.0) Eosinophils (%) (Auto) 5.8 % (0.0-3.0) H Basophils (%) (Auto) 1.2 % (0.0-2.0) Sodium Level 138 MMOL/L (136-145) Potassium Level 4.2 MMOL/L (3.5-5.1) Chloride Level 102 MMOL/L (98-107) Carbon Dioxide Level 26 MMOL/L (21-32) Anion Gap 10 mmol/L (5-15) Blood Urea Nitrogen 13 mg/dL (7-18) Creatinine 0.6 MG/DL (0.55-1.30) Estimat Glomerular Filtration Rate > 60 mL/min (>60) Glucose Level 103 MG/DL (74-106) Hemoglobin A1c 5.1 % (4.3-6.0) Uric Acid 4.2 MG/DL (2.6-7.2) Calcium Level 9.0 MG/DL (8.5-10.1) Phosphorus Level 4.2 MG/DL (2.5-4.9) Magnesium Level 2.1 MG/DL (1.8-2.4) Total Bilirubin 0.4 MG/DL (0.2-1.0) Gamma Glutamyl Transpeptidase 150 U/L (5-85) H Aspartate Amino Transf (AST/SGOT) 39 U/L (15-37) H Alanine Aminotransferase (ALT/SGPT) 51 U/L (12-78) Alkaline Phosphatase 71 U/L (46-116) Total Creatine Kinase 63 U/L (26-308) Pro-B-Type Natriuretic Peptide 138 pg/mL (0-125) H Total Protein 7.0 G/DL (6.4-8.2) Albumin 2.8 G/DL (3.4-5.0) L Globulin 4.2 g/dL Albumin/Globulin Ratio 0.7 (1.0-2.7) L Triglycerides Level 219 MG/DL (30-150) H Cholesterol Level 154 MG/DL (< 200) LDL Cholesterol 93 mg/dL (<100) HDL Cholesterol 42 MG/DL (40-60) Cholesterol/HDL Ratio 3.7 (3.3-4.4) Thyroid Stimulating Hormone (TSH) 0.963 uiU/mL (0.358-3.740) Microbiology Date/Time Source Procedure Growth Status 02/15/18 10:10 Blood Blood Culture - Preliminary NO GROWTH AFTER 24 HOURS Resulted 02/15/18 10:00 Blood Blood Culture - Preliminary NO GROWTH AFTER 24 HOURS Resulted 02/15/18 00:15 Blood Blood Culture - Preliminary NO GROWTH AFTER 48 HOURS Resulted 02/15/18 00:00 Blood Blood Culture - Preliminary NO GROWTH AFTER 48 HOURS Resulted 02/15/18 14:00 Sputum Gram Stain - Final Resulted 02/15/18 14:00 Sputum Sputum Culture Pending Resulted 02/15/18 01:20 Nasal Nares MRSA Culture - Final NO METHICILLIN RESISTANT STAPH AUREUS... Complete 02/15/18 14:00 Indwelling Cath Urine Culture - Preliminary Mixed Urogenital Contaminants Resulted 02/15/18 00:15 Urine,Clean Catch Urine Culture - Preliminary Gram Negative Bacillus 1 Gram Negative Bacillus 2 Resulted 02/15/18 01:20 Rectum VRE Culture - Final Enterococcus Faecalis - Vre Complete Objective HEAD AND NECK: Showed no JVD. Status post tracheostomy. LUNGS: Coarse rhonchi. CARDIOVASCULAR: Tachycardic. S1 and S2 with no gallop. ABDOMEN: Status post G-tube. EXTREMITIES: 1+ pitting edema. Dat Oh MD February 17, 2018 16:58
[2018-02-17] MEDS ORDERED: Tubing IV Secondary IV ONE (17:41)
[2018-02-17] MEDS ORDERED: NS 275ml ONE (17:41)
[2018-02-17] MEDS ORDERED: Dyna-Hex 2% Top Sol 2oz TOPIC SCH (20:00)
[2018-02-17 20:50] VITALS: BP 108/73
[2018-02-17] MEDS ORDERED: Iron Sucrose 100 MG in NS 55 ML IVPB SCH (21:00)
[2018-02-17] MEDS ORDERED: Carvedilol 6.25mg Tab GT SCH (21:00)
[2018-02-17] MEDS: Carvedilol 6.25mg Tab GT SCH (23:12)
[2018-02-18] VITALS (7 sets, daily range): BP systolic 107–139; BP diastolic 67–77
[2018-02-18] MEDS ORDERED: Ipratropium 0.02% Inh Soln 2.5ml UD HHN PRN
[2018-02-18] MEDS ORDERED: Cefepime HCl 2 GM in D5W 55 ML IV SCH ×2
[2018-02-18] MEDS: Cefepime HCl 2 GM in D5W 55 ML IV SCH ×2 (00:24→12:13)
[2018-02-18] MEDS: Vancomycin 1250mg/D5W 250ml 250 ML IVPB SCH ×2 (04:57→17:36)
--- NOTE | 2018-02-18 07:14 | General Progress Note ---
Assessment/Plan Assessment/Plan ASSESSMENT AND RECOMMENDATIONS: 1. Anemia likely secondary to anemia of iron deficiency. --> due to low ferritin and elevated tibc is mixed picture --> have given iv iron and ferrous sulfate po doses as well --> hgb goal > 7 2. Anemia due to hemodilution. Continue closely monitor fluid status. --> no evidence of hemolysis, hgb goal is >7 3. Leukocytosis secondary to underlying infection. 4. Potential right hydronephrosis, urinary infection. 5. Potential ileus. 6. Chronic respiratory failure, status post tracheostomy. 7. HTN, systolic blood pressure goal less than 140. 8. Dysphagia status post PEG tube. Subjective Constitutional: Denies: no symptoms, chills, diaphoresis, fever, malaise, weakness, other HEENT: Denies: no symptoms, eye pain, blurred vision, tearing, double vision, ear pain, ear discharge, nose pain, nose congestion, throat pain, throat swelling, mouth pain, mouth swelling, other Cardiovascular: Denies: no symptoms, chest pain, edema, irregular heart rate, lightheadedness, palpitations, syncope, other Respiratory: Denies: no symptoms, cough, orthopnea, shortness of breath, SOB with excertion, SOB at rest, sputum, stridor, wheezing, other Gastrointestinal/Abdominal: Denies: no symptoms, abdomen distended, abdominal pain, black stools, tarry stools, blood in stool, constipated, diarrhea, difficulty swallowing, nausea, poor appetite, poor fluid intake, rectal bleeding , vomiting, other Genitourinary: Denies: no symptoms, burning, discharge, frequency, flank pain, hematuria, incontinence, pain, urgency, other Neurologic/Psychiatric: Denies: no symptoms, anxiety, depressed, emotional problems, headache, numbness, paresthesia, pre-existing deficit, seizure, tingling, tremors, weakness, other Allergies: Coded Allergies: PENICILLINS (Verified Allergy, Unknown, 02/14/18) Subjective no fevers or chills, somewhat weak at this time Objective Last 24 Hour Vital Signs Date Time Temp Pulse Resp B/P (MAP) Pulse Ox O2 Delivery O2 Flow Rate FiO2 02/18/18 04:00 100.3 112 18 111/67 98 Trach Collar 6.0 28 100.3 02/18/18 03:27 107 02/18/18 01:16 99 T-piece 6.0 28 02/18/18 01:16 T-piece 6.0 28 02/18/18 00:00 99.7 108 17 111/69 98 Trach Collar 6.0 28 99.7 02/17/18 23:33 116 02/17/18 23:12 113 108/73 02/17/18 20:50 99.8 104 20 108/73 98 Trach Collar 6.0 28 99.8 02/17/18 19:50 T-piece 6.0 28 02/17/18 19:50 98 T-piece 6.0 28 02/17/18 19:49 108 22 T-piece 6.0 28 02/17/18 16:00 99.2 95 22 109/74 98 Trach Collar 6.0 28 99.2 02/17/18 16:00 102 02/17/18 14:12 105 02/17/18 13:36 T-piece 6.0 28 02/17/18 13:35 99 T-piece 6.0 28 02/17/18 12:00 93 02/17/18 12:00 99.0 95 28 102/66 99 Trach Collar 6.0 28 99.0 02/17/18 09:26 102 110/66 02/17/18 09:24 102 02/17/18 08:00 98 02/17/18 08:00 99.0 102 24 110/66 99 Trach Collar 6.0 99.0 02/17/18 07:59 112 22 T-piece 6.0 28 02/17/18 07:55 T-piece 6.0 28 02/17/18 07:50 99 T-piece 6.0 28 Intake and Output 02/17/18 02/18/18 19:00 07:00 Intake Total 1241.667 ml 425 ml Output Total 1200 ml 450 ml Balance 41.667 ml -25 ml Intake Free Water 250 ml 200 ml IV Total 441.667 ml 175 ml Tube Feeding 550 ml 50 ml Output Urine Total 1200 ml 450 ml # Bowel Movements 2 1 Height (Feet): 5 Height (Inches): 5.00 Weight (Pounds): 184 General Appearance: no apparent distress EENT: TMs normal Neck: supple Cardiovascular: regular rhythm Respiratory/Chest: no respiratory distress, other Abdomen: no organomegaly Extremities: non-tender Edema: 1+ Leg (L), 1+ Leg (R) Edema: mild edema Neurologic: no motor/sensory deficits Aaron Schmidt MD February 18, 2018 07:14
[2018-02-18] MEDS: Vitamin A&D Oint 2oz Tube TOPIC SCH ×2 (08:31→21:00)
[2018-02-18] MEDS: Lactulose 20gm/30ml UDC GT SCH ×2 (08:31→17:40)
[2018-02-18] MEDS: Acetaminophen 650mg/20.3ml GT PRN ×2 (08:32→17:40)
[2018-02-18] MEDS: levETIRAcetam 500mg/5ml Liquid GT SCH (08:33)
[2018-02-18] MEDS: Carvedilol 6.25mg Tab GT SCH ×2 (08:35→21:46)
[2018-02-18] MEDS: Heparin 5000 units/ml inj SUBQ SCH ×2 (08:37→21:54)
[2018-02-18] MEDS ORDERED: Heparin 5000 units/ml inj SUBQ SCH (09:00)
[2018-02-18] MEDS ORDERED: Carvedilol 6.25mg Tab GT SCH (09:00)
[2018-02-18] MEDS ORDERED: Multivitamin w/Minerals tab ORAL SCH (09:00)
[2018-02-18] MEDS ORDERED: Milk of Magnesia 30ml Ud GT PRN (09:00)
[2018-02-18] MEDS ORDERED: Lidocaine 1% Plain 30 ml INJ SCH (09:30)
[2018-02-18] MEDS ORDERED: Heparin 2000 units/Ns 1000ml INJ SCH (09:30)
[2018-02-18] MEDS ORDERED: LORazepam Inj 2mg/ml 1ml IV PRN (09:30)
[2018-02-18 09:48] LABS: BASOPHILS % (AUTO) 0.4 % (0.0-2.0); EOSINOPHILS % (AUTO) 2.2 % (0.0-3.0); HEMATOCRIT 31.4 % (37.0-47.0); HEMOGLOBIN 10.4 G/DL (12.0-16.0); LYMPHOCYTES % (AUTO) 13.7 % (20.0-45.0); MEAN CORPUSCULAR VOLUME 91 FL (80-99); MONOCYTES % (AUTO) 3.8 % (1.0-10.0); NEUTROPHILS % (AUTO) 79.9 % (45.0-75.0); PLATELET COUNT 333 K/UL (150-450); RED BLOOD COUNT 3.44 M/UL (4.20-5.40); RED CELL DISTRIBUTION WIDTH 12.3 % (11.6-14.8); WHITE BLOOD COUNT 12.7 K/UL (4.8-10.8)
[2018-02-18 10:07] LABS: ALANINE AMINOTRANSFERASE 51 U/L (12-78); ALBUMIN 3.2 G/DL (3.4-5.0); ALBUMIN/GLOBULIN RATIO 0.7 (1.0-2.7); ALKALINE PHOSPHATASE 77 U/L (46-116); ANION GAP 14 mmol/L (5-15); ASPARTATE AMINO TRANSFERASE 60 U/L (15-37); BILIRUBIN,TOTAL 0.5 MG/DL (0.2-1.0); BLOOD UREA NITROGEN 13 mg/dL (7-18); CALCIUM 9.5 MG/DL (8.5-10.1); CARBON DIOXIDE 26 MMOL/L (21-32); CHLORIDE 100 MMOL/L (98-107); CREATININE 0.8 MG/DL (0.55-1.30); PHOSPHORUS 3.7 MG/DL (2.5-4.9); POTASSIUM 3.4 MMOL/L (3.5-5.1); SODIUM 140 MMOL/L (136-145)
--- NOTE | 2018-02-18 10:53 | Nephrology Progress Note ---
Assessment/Plan Problem List: (1) Acute renal failure (ARF) (2) Respiratory failure (3) Seizure disorder (4) Pneumonia (5) Urinary retention Assessment acuter renal failure- resolved Urinary retention Dehydration Sepsis- Pneumonia and UTI, High Lactate Chronic respiratory failure- At Fib Sz disorder- Hydrocephalus Anemia Plan K as needed stop Hydrate- more dig higher dose of coreg IV Iron Antibiotics- Baxter- Monitor renal parameters Avoid Nephrotoxics per orders Subjective ROS Limited/Unobtainable: Yes Constitutional: Reports: malaise Objective Objective Last 24 Hour Vital Signs Date Time Temp Pulse Resp B/P (MAP) Pulse Ox O2 Delivery O2 Flow Rate FiO2 02/18/18 08:35 106 126/72 02/18/18 08:35 106 02/18/18 08:32 100.3 02/18/18 07:30 T-piece 6.0 28 02/18/18 07:30 98 T-piece 6.0 28 02/18/18 07:30 101 20 T-piece 6.0 28 02/18/18 04:00 100.3 112 18 111/67 98 Trach Collar 6.0 28 100.3 02/18/18 03:27 107 02/18/18 01:16 99 T-piece 6.0 28 02/18/18 01:16 T-piece 6.0 28 02/18/18 00:00 99.7 108 17 111/69 98 Trach Collar 6.0 28 99.7 02/17/18 23:33 116 02/17/18 23:12 113 108/73 02/17/18 20:50 99.8 104 20 108/73 98 Trach Collar 6.0 28 99.8 02/17/18 19:50 T-piece 6.0 28 02/17/18 19:50 98 T-piece 6.0 28 02/17/18 19:49 108 22 T-piece 6.0 28 02/17/18 16:00 99.2 95 22 109/74 98 Trach Collar 6.0 28 99.2 02/17/18 16:00 102 02/17/18 14:12 105 02/17/18 13:36 T-piece 6.0 28 02/17/18 13:35 99 T-piece 6.0 28 02/17/18 12:00 93 02/17/18 12:00 99.0 95 28 102/66 99 Trach Collar 6.0 28 99.0 Intake and Output 02/17/18 02/18/18 19:00 07:00 Intake Total 1241.667 ml 758.334 ml Output Total 1200 ml 450 ml Balance 41.667 ml 308.334 ml Intake Free Water 250 ml 200 ml IV Total 441.667 ml 508.334 ml Tube Feeding 550 ml 50 ml Output Urine Total 1200 ml 450 ml # Bowel Movements 2 1 Laboratory Tests 02/18/18 09:20: White Blood Count 12.7H, Red Blood Count 3.44L, Hemoglobin 10.4L, Hematocrit 31.4L, Mean Corpuscular Volume 91, Mean Corpuscular Hemoglobin 30.2, Mean Corpuscular Hemoglobin Concent 33.1, Red Cell Distribution Width 12.3, Platelet Count 333, Mean Platelet Volume 7.9, Neutrophils (%) (Auto) 79.9H, Lymphocytes ( %) (Auto) 13.7L, Monocytes (%) (Auto) 3.8, Eosinophils (%) (Auto) 2.2, Basophils (%) (Auto) 0.4, Sodium Level 140, Potassium Level 3.4L, Chloride Level 100, Carbon Dioxide Level 26, Anion Gap 14, Blood Urea Nitrogen 13, Creatinine 0.8, Estimat Glomerular Filtration Rate > 60, Glucose Level 128H, Uric Acid 3.9, Calcium Level 9.5, Phosphorus Level 3.7, Magnesium Level 1.9, Total Bilirubin 0.5, Aspartate Amino Transf (AST/SGOT) 60H, Alanine Aminotransferase (ALT/SGPT) 51, Alkaline Phosphatase 77, C-Reactive Protein, Quantitative 3.8H, Pro-B-Type Natriuretic Peptide 336H, Total Protein 7.6, Albumin 3.2L, Globulin 4.4, Albumin/Globulin Ratio 0.7L, Digoxin Level 1.5 Height (Feet): 5 Height (Inches): 5.00 Weight (Pounds): 184 General Appearance: no apparent distress Neck: other - trach Cardiovascular: tachycardia Respiratory/Chest: decreased breath sounds Abdomen: distended PATRICIO KNUTSON February 18, 2018 10:53
--- NOTE | 2018-02-18 11:06 | Consultation ---
History of Present Illness General Date patient seen: February 17, 2018 Chief Complaint: Fever Present Illness HPI 47-year-old female with past medical history of seizure disorder, vegetative state, status post trach, respiratory status, i.e., chronic respiratory failure , status post trach at this time presents with fevers and chills, abdominal distention, hematuria, respiratory failure, status post tracheostomy. The pt has been nonverbal and gets agitated at times Allergies: Coded Allergies: PENICILLINS (Verified Allergy, Unknown, 02/14/18) Medication History Scheduled Bisacodyl (Dulcolax), 10 MG RC DAILY, (Reported) Carvedilol* (Carvedilol*), 12.5 MG GT EVERY 12 HOURS, (Reported) Cranberry Extract (Cranberry Juice Powder), 425 MG GT DAILY, (Reported) Digoxin* (Digoxin*), 0.25 MG GT DAILY, (Reported) Famotidine (Pepcid Ac), 20 MG GT BID, (Reported) Heparin Sod (Porcine) (Heparin Sodium*), 5,000 UNITS SUBQ EVERY 12 HOURS, ( Reported) Lactulose (Lactulose*), 30 ML GT BID, (Reported) Levetiracetam (Keppra), 7.5 ML GT EVERY 12 HOURS, (Reported) Losartan Potassium* (Cozaar*), 12.5 MG GT DAILY, (Reported) Magnesium Hydroxide* (Milk Of Magnesia*), 30 ML GT DAILY, (Reported) Multivitamin With Minerals (Multivitamins With Minerals*), 1 TAB GT DAILY, ( Reported) Scheduled PRN Ipratropium [place] 0.5MG/2.5ML (Ipratropium [place] 0.5MG/2.5ML), 0.5 MG HHN EVERY 2 HOURS PRN for Shortness of Breath, (Reported) Lorazepam* (Ativan*), 2 MG GT EVERY 12 HOURS PRN for For Seizures, (Reported) Prochlorperazine (Compazine*), 10 MG GT EVERY 8 HOURS PRN for Nausea & Vomiting, (Reported) Patient History History Provided By: Medical Record, PMD Healthcare decision maker Resuscitation status Advanced Directive on File Review of Systems Psychiatric: Reports: anxiety Physical Exam General Appearance: WD/WN, no apparent distress, alert, confused, agitated Last 24 Hour Vital Signs Date Time Temp Pulse Resp B/P (MAP) Pulse Ox O2 Delivery O2 Flow Rate FiO2 02/18/18 08:35 106 126/72 02/18/18 08:35 106 02/18/18 08:32 100.3 02/18/18 07:30 T-piece 6.0 28 02/18/18 07:30 98 T-piece 6.0 28 02/18/18 07:30 101 20 T-piece 6.0 28 02/18/18 04:00 100.3 112 18 111/67 98 Trach Collar 6.0 28 100.3 02/18/18 03:27 107 02/18/18 01:16 99 T-piece 6.0 28 02/18/18 01:16 T-piece 6.0 28 02/18/18 00:00 99.7 108 17 111/69 98 Trach Collar 6.0 28 99.7 02/17/18 23:33 116 02/17/18 23:12 113 108/73 02/17/18 20:50 99.8 104 20 108/73 98 Trach Collar 6.0 28 99.8 02/17/18 19:50 T-piece 6.0 28 02/17/18 19:50 98 T-piece 6.0 28 02/17/18 19:49 108 22 T-piece 6.0 28 02/17/18 16:00 99.2 95 22 109/74 98 Trach Collar 6.0 28 99.2 02/17/18 16:00 102 02/17/18 14:12 105 02/17/18 13:36 T-piece 6.0 28 02/17/18 13:35 99 T-piece 6.0 28 02/17/18 12:00 93 02/17/18 12:00 99.0 95 28 102/66 99 Trach Collar 6.0 28 99.0 Intake and Output 02/17/18 02/18/18 19:00 07:00 Intake Total 1241.667 ml 758.334 ml Output Total 1200 ml 450 ml Balance 41.667 ml 308.334 ml Intake Free Water 250 ml 200 ml IV Total 441.667 ml 508.334 ml Tube Feeding 550 ml 50 ml Output Urine Total 1200 ml 450 ml # Bowel Movements 2 1 Laboratory Tests Test 02/18/18 09:20 White Blood Count 12.7 K/UL (4.8-10.8) H Red Blood Count 3.44 M/UL (4.20-5.40) L Hemoglobin 10.4 G/DL (12.0-16.0) L Hematocrit 31.4 % (37.0-47.0) L Mean Corpuscular Volume 91 FL (80-99) Mean Corpuscular Hemoglobin 30.2 PG (27.0-31.0) Mean Corpuscular Hemoglobin Concent 33.1 G/DL (32.0-36.0) Red Cell Distribution Width 12.3 % (11.6-14.8) Platelet Count 333 K/UL (150-450) Mean Platelet Volume 7.9 FL (6.5-10.1) Neutrophils (%) (Auto) 79.9 % (45.0-75.0) H Lymphocytes (%) (Auto) 13.7 % (20.0-45.0) L Monocytes (%) (Auto) 3.8 % (1.0-10.0) Eosinophils (%) (Auto) 2.2 % (0.0-3.0) Basophils (%) (Auto) 0.4 % (0.0-2.0) Sodium Level 140 MMOL/L (136-145) Potassium Level 3.4 MMOL/L (3.5-5.1) L Chloride Level 100 MMOL/L (98-107) Carbon Dioxide Level 26 MMOL/L (21-32) Anion Gap 14 mmol/L (5-15) Blood Urea Nitrogen 13 mg/dL (7-18) Creatinine 0.8 MG/DL (0.55-1.30) Estimat Glomerular Filtration Rate > 60 mL/min (>60) Glucose Level 128 MG/DL (74-106) H Uric Acid 3.9 MG/DL (2.6-7.2) Calcium Level 9.5 MG/DL (8.5-10.1) Phosphorus Level 3.7 MG/DL (2.5-4.9) Magnesium Level 1.9 MG/DL (1.8-2.4) Total Bilirubin 0.5 MG/DL (0.2-1.0) Aspartate Amino Transf (AST/SGOT) 60 U/L (15-37) H Alanine Aminotransferase (ALT/SGPT) 51 U/L (12-78) Alkaline Phosphatase 77 U/L (46-116) C-Reactive Protein, Quantitative 3.8 mg/dL (0.00-0.90) H Pro-B-Type Natriuretic Peptide 336 pg/mL (0-125) H Total Protein 7.6 G/DL (6.4-8.2) Albumin 3.2 G/DL (3.4-5.0) L Globulin 4.4 g/dL Albumin/Globulin Ratio 0.7 (1.0-2.7) L Digoxin Level 1.5 NG/ML (0.9-2.0) Height (Feet): 5 Height (Inches): 5.00 Weight (Pounds): 184 Medications Current Medications Medications (Trade) Dose Ordered Sig/Bere Route PRN Reason Start Time Stop Time Status Last Admin Dose Admin Acetaminophen (Tylenol) 650 mg Q6H PRN GT Fever/Headache/Mild Pain 02/18/18 06:30 03/20/18 06:29 02/18/18 08:32 Bisacodyl (Dulcolax) 10 mg DAILY RECTAL 02/18/18 09:00 03/17/18 08:59 02/18/18 08:33 Carvedilol (Coreg) 6.25 mg EVERY 12 HOURS GT 02/17/18 23:05 03/19/18 23:04 02/18/18 08:35 Cefepime HCl 2 gm/ Dextrose 55 ml @ 110 mls/hr Q12H IV 02/18/18 00:00 02/22/18 00:00 02/18/18 00:24 Chlorhexidine Gluconate (Jane-Hex 2%) 1 applic DAILY@2000 TOPIC 02/18/18 20:00 03/19/18 19:59 Dextrose (Dextrose 50%) 25 ml STAT PRN IV Hypoglycemia 02/18/18 07:15 03/17/18 07:14 Dextrose (Dextrose 50%) 50 ml STAT PRN IV Hypoglycemia 02/18/18 07:15 03/17/18 07:14 Digoxin (Lanoxin) 0.25 mg DAILY PEG 02/18/18 09:00 03/19/18 08:59 02/18/18 08:35 Famotidine (Pepcid) 20 mg BID GT 02/18/18 09:00 03/17/18 08:59 02/18/18 08:37 Heparin Sodium (Porcine) (Heparin 5000 units/ml) 5,000 units EVERY 12 HOURS SUBQ 02/17/18 23:06 03/19/18 23:05 02/18/18 08:37 Ipratropium [place] (Atrovent) 500 mcg EVERY 2 HOURS PRN HHN Shortness of Breath 02/18/18 00:00 02/20/18 07:44 Lactulose (Cephulac) 20 gm BID GT 02/18/18 09:00 03/17/18 08:59 02/18/18 08:31 Levetiracetam (Keppra) 750 mg EVERY 12 HOURS GT 02/17/18 22:15 03/17/18 08:59 02/18/18 08:33 Lorazepam (Ativan 2mg/ml 1ml) 1 mg Q4H PRN IV For Seizures 02/18/18 09:30 02/25/18 09:29 Magnesium Hydroxide (Mom) 30 ml DAILY PRN GT Constipation 02/18/18 09:00 03/17/18 06:59 Metronidazole 100 ml @ 100 mls/hr Q12HR IVPB 02/17/18 22:45 02/24/18 22:44 02/18/18 08:31 Multivitamins Therapeutic (Therapeutic Multivitamin) 1 ea DAILY ORAL 02/18/18 09:00 03/17/18 08:59 02/18/18 08:33 Potassium Chloride 40 meq/ Sodium Chloride 570 ml @ 142.5 mls/ hr ONCE ONCE IVPB 02/18/18 11:00 02/18/18 14:59 UNV Vancomycin HCl (Vanco rx to dose) 1 ea DAILY PRN MISC Per rx protocol 02/18/18 09:00 03/17/18 06:44 Vancomycin HCl/ Dextrose 250 ml @ 166.667 mls/hr Q12H IVPB 02/18/18 05:00 02/22/18 16:59 02/18/18 04:57 Vitamin A/Vitamin D (A & D Oint) 1 applic EVERY 12 HOURS TOPIC 02/17/18 22:15 03/17/18 08:59 02/18/18 08:31 Assessment/Plan Assessment/Plan encephalopathy agitation ativan prn Robby Beltre M.D. February 18, 2018 11:06
--- NOTE | 2018-02-18 11:50 | Diagnostic Imaging Report ---
Indications: Needs long-term IV access Technique: Ultrasound confirms patent compressible right basilic vein. Total sterile technique, including sterile probe cover and sterile gel, hat, mask,, sterile gown, large sterile drape, and preparation with 2% chlorhexidine utilized. Local anesthesia with 1% lidocaine. Under real-time ultrasound guidance, puncture basilic vein using 21-gauge needle, documented and archived, passage 0.018 guidewire under direct fluoroscopy, which was used to determine appropriate catheter length, exchange for 5 [place] peel-away sheath. 5 [place] Bard dual-lumen power PICC cut to 35 cm. It was inserted through the peel-away sheath. Peel-away sheath and guidewire removed. Catheter fixed to the skin. Both catheter ports aspirated and flushed. Patient tolerated procedure well, without immediate complication. Digital radiograph documents satisfactory catheter tip position, at the high right atrium. Total fluoroscopy time 0.5 minutes. Total dose area product 20 dGycm2 Impression: Successful placement of right arm PICC under sonographic and fluoroscopic guidance, as described above.
--- NOTE | 2018-02-18 12:21 | Pulmonology Progress Note ---
Assessment/Plan Problems: (1) Pneumonia (2) Severe sepsis (3) Acute renal failure (ARF) (4) HTN (hypertension) (5) Encephalopathy (6) Seizure disorder (7) Tracheostomy care Assessment/Plan respiratory treatment iv abx check sputum , and sensitivity tolerating diet frequent suctioning titrate fio2 to sat of 92% trach site care check electrolytes dvt prophylaxis. Subjective ROS Limited/Unobtainable: No Constitutional: Reports: no symptoms HEENT: Repors: no symptoms Respiratory: Reports: no symptoms Allergies: Coded Allergies: PENICILLINS (Verified Allergy, Unknown, 02/14/18) Objective Last 24 Hour Vital Signs Date Time Temp Pulse Resp B/P (MAP) Pulse Ox O2 Delivery O2 Flow Rate FiO2 02/18/18 09:02 98.2 02/18/18 08:35 106 126/72 02/18/18 08:35 106 02/18/18 08:32 100.3 02/18/18 08:00 100.1 106 20 126/72 97 Trach Collar 6.0 28 100.1 02/18/18 08:00 69 02/18/18 07:30 T-piece 6.0 28 02/18/18 07:30 98 T-piece 6.0 28 02/18/18 07:30 101 20 T-piece 6.0 28 02/18/18 04:00 100.3 112 18 111/67 98 Trach Collar 6.0 28 100.3 02/18/18 03:27 107 02/18/18 01:16 99 T-piece 6.0 28 02/18/18 01:16 T-piece 6.0 28 02/18/18 00:00 99.7 108 17 111/69 98 Trach Collar 6.0 28 99.7 02/17/18 23:33 116 02/17/18 23:12 113 108/73 02/17/18 20:50 99.8 104 20 108/73 98 Trach Collar 6.0 28 99.8 02/17/18 19:50 T-piece 6.0 28 02/17/18 19:50 98 T-piece 6.0 28 02/17/18 19:49 108 22 T-piece 6.0 28 02/17/18 16:00 99.2 95 22 109/74 98 Trach Collar 6.0 28 99.2 02/17/18 16:00 102 02/17/18 14:12 105 02/17/18 13:36 T-piece 6.0 28 02/17/18 13:35 99 T-piece 6.0 28 Intake and Output 02/17/18 02/18/18 19:00 07:00 Intake Total 1241.667 ml 758.334 ml Output Total 1200 ml 450 ml Balance 41.667 ml 308.334 ml Intake Free Water 250 ml 200 ml IV Total 441.667 ml 508.334 ml Tube Feeding 550 ml 50 ml Output Urine Total 1200 ml 450 ml # Bowel Movements 2 1 General Appearance: cachetic HEENT: normocephalic, atraumatic Respiratory/Chest: chest wall non-tender, lungs clear Breasts: no masses Cardiovascular: normal peripheral pulses, no JVD Abdomen: normal bowel sounds, soft, non tender Genitourinary: normal external genitalia Extremities: no cyanosis Skin: no rash 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 Lymphatic: no neck adenopathy Microbiology Date/Time Source Procedure Growth Status 02/15/18 14:00 Sputum Gram Stain - Final Resulted 02/15/18 14:00 Sputum Culture - Preliminary Serratia Marcescens Gram Negative Bacillus 2 Resulted 02/15/18 14:00 Indwelling Cath Urine Culture - Preliminary Mixed Urogenital Contaminants Streptococcus Species Resulted Laboratory Tests 02/18/18 09:20: White Blood Count 12.7H, Red Blood Count 3.44L, Hemoglobin 10.4L, Hematocrit 31.4L, Mean Corpuscular Volume 91, Mean Corpuscular Hemoglobin 30.2, Mean Corpuscular Hemoglobin Concent 33.1, Red Cell Distribution Width 12.3, Platelet Count 333, Mean Platelet Volume 7.9, Neutrophils (%) (Auto) 79.9H, Lymphocytes ( %) (Auto) 13.7L, Monocytes (%) (Auto) 3.8, Eosinophils (%) (Auto) 2.2, Basophils (%) (Auto) 0.4, Sodium Level 140, Potassium Level 3.4L, Chloride Level 100, Carbon Dioxide Level 26, Anion Gap 14, Blood Urea Nitrogen 13, Creatinine 0.8, Estimat Glomerular Filtration Rate > 60, Glucose Level 128H, Uric Acid 3.9, Calcium Level 9.5, Phosphorus Level 3.7, Magnesium Level 1.9, Total Bilirubin 0.5, Aspartate Amino Transf (AST/SGOT) 60H, Alanine Aminotransferase (ALT/SGPT) 51, Alkaline Phosphatase 77, C-Reactive Protein, Quantitative 3.8H, Pro-B-Type Natriuretic Peptide 336H, Total Protein 7.6, Albumin 3.2L, Globulin 4.4, Albumin/Globulin Ratio 0.7L, Digoxin Level 1.5 Current Medications Medications (Trade) Dose Ordered Sig/Bere Route PRN Reason Start Time Stop Time Status Last Admin Dose Admin Acetaminophen (Tylenol) 650 mg Q6H PRN GT Fever/Headache/Mild Pain 02/18/18 06:30 03/20/18 06:29 02/18/18 08:32 Bisacodyl (Dulcolax) 10 mg DAILY RECTAL 02/18/18 09:00 03/17/18 08:59 02/18/18 08:33 Carvedilol (Coreg) 6.25 mg EVERY 12 HOURS GT 02/17/18 23:05 03/19/18 23:04 02/18/18 08:35 Cefepime HCl 2 gm/ Dextrose 55 ml @ 110 mls/hr Q12H IV 02/18/18 00:00 02/22/18 00:00 02/18/18 12:13 Chlorhexidine Gluconate (Jane-Hex 2%) 1 applic DAILY@2000 TOPIC 02/18/18 20:00 03/19/18 19:59 Dextrose (Dextrose 50%) 25 ml STAT PRN IV Hypoglycemia 02/18/18 07:15 03/17/18 07:14 Dextrose (Dextrose 50%) 50 ml STAT PRN IV Hypoglycemia 02/18/18 07:15 03/17/18 07:14 Digoxin (Lanoxin) 0.25 mg DAILY PEG 02/18/18 09:00 03/19/18 08:59 02/18/18 08:35 Famotidine (Pepcid) 20 mg BID GT 02/18/18 09:00 03/17/18 08:59 02/18/18 08:37 Heparin Sodium (Porcine) (Heparin 5000 units/ml) 5,000 units EVERY 12 HOURS SUBQ 02/17/18 23:06 03/19/18 23:05 02/18/18 08:37 Ipratropium [place] (Atrovent) 500 mcg EVERY 2 HOURS PRN HHN Shortness of Breath 02/18/18 00:00 5/18/18 07:44 Lactulose (Cephulac) 20 gm BID GT 02/18/18 09:00 03/17/18 08:59 02/18/18 08:31 Levetiracetam (Keppra) 750 mg EVERY 12 HOURS GT 02/17/18 22:15 03/17/18 08:59 02/18/18 08:33 Lorazepam (Ativan 2mg/ml 1ml) 1 mg Q4H PRN IV For Seizures 02/18/18 09:30 02/25/18 09:29 Magnesium Hydroxide (Mom) 30 ml DAILY PRN GT Constipation 02/18/18 09:00 03/17/18 06:59 Metronidazole 100 ml @ 100 mls/hr Q12HR IVPB 02/17/18 22:45 02/24/18 22:44 02/18/18 08:31 Multivitamins Therapeutic (Therapeutic Multivitamin) 1 ea DAILY ORAL 02/18/18 09:00 03/17/18 08:59 02/18/18 08:33 Potassium Chloride 40 meq/ Sodium Chloride 570 ml @ 142.5 mls/ hr ONCE ONCE IVPB 02/18/18 12:30 02/18/18 16:29 Vancomycin HCl (Vanco rx to dose) 1 ea DAILY PRN MISC Per rx protocol 02/18/18 09:00 03/17/18 06:44 Vancomycin HCl/ Dextrose 250 ml @ 166.667 mls/hr Q12H IVPB 02/18/18 05:00 02/22/18 16:59 02/18/18 04:57 Vitamin A/Vitamin D (A & D Oint) 1 applic EVERY 12 HOURS TOPIC 02/17/18 22:15 03/17/18 08:59 02/18/18 08:31 Trisha Soto MD February 18, 2018 12:21
[2018-02-18] MEDS ORDERED: Potassium Chloride 40 MEQ in Sodium Chloride 500ML 550 ML IVPB ONE (12:30)
--- NOTE | 2018-02-18 15:43 | General Progress Note ---
Assessment/Plan Status: unchanged Assessment/Plan encephalopathy agitation ativan prn Subjective Date patient seen: February 18, 2018 Neurologic/Psychiatric: Reports: anxiety, depressed, emotional problems Allergies: Coded Allergies: PENICILLINS (Verified Allergy, Unknown, 02/14/18) Objective Last 24 Hour Vital Signs Date Time Temp Pulse Resp B/P (MAP) Pulse Ox O2 Delivery O2 Flow Rate FiO2 02/18/18 12:35 T-piece 6.0 28 02/18/18 12:35 99 T-piece 6.0 28 02/18/18 12:00 98.2 94 20 107/71 98 Trach Collar 6.0 28 98.2 02/18/18 12:00 94 02/18/18 09:02 98.2 02/18/18 08:35 106 126/72 02/18/18 08:35 106 02/18/18 08:32 100.3 02/18/18 08:00 100.1 106 20 126/72 97 Trach Collar 6.0 28 100.1 02/18/18 08:00 69 02/18/18 07:30 T-piece 6.0 28 02/18/18 07:30 98 T-piece 6.0 28 02/18/18 07:30 101 20 T-piece 6.0 28 02/18/18 04:00 100.3 112 18 111/67 98 Trach Collar 6.0 28 100.3 02/18/18 03:27 107 02/18/18 01:16 99 T-piece 6.0 28 02/18/18 01:16 T-piece 6.0 28 02/18/18 00:00 99.7 108 17 111/69 98 Trach Collar 6.0 28 99.7 02/17/18 23:33 116 02/17/18 23:12 113 108/73 02/17/18 20:50 99.8 104 20 108/73 98 Trach Collar 6.0 28 99.8 02/17/18 19:50 T-piece 6.0 28 02/17/18 19:50 98 T-piece 6.0 28 02/17/18 19:49 108 22 T-piece 6.0 28 02/17/18 16:00 99.2 95 22 109/74 98 Trach Collar 6.0 28 99.2 02/17/18 16:00 102 Intake and Output 02/17/18 02/18/18 19:00 07:00 Intake Total 1241.667 ml 758.334 ml Output Total 1200 ml 450 ml Balance 41.667 ml 308.334 ml Intake Free Water 250 ml 200 ml IV Total 441.667 ml 508.334 ml Tube Feeding 550 ml 50 ml Output Urine Total 1200 ml 450 ml # Bowel Movements 2 1 Laboratory Tests 02/18/18 09:20: White Blood Count 12.7H, Red Blood Count 3.44L, Hemoglobin 10.4L, Hematocrit 31.4L, Mean Corpuscular Volume 91, Mean Corpuscular Hemoglobin 30.2, Mean Corpuscular Hemoglobin Concent 33.1, Red Cell Distribution Width 12.3, Platelet Count 333, Mean Platelet Volume 7.9, Neutrophils (%) (Auto) 79.9H, Lymphocytes ( %) (Auto) 13.7L, Monocytes (%) (Auto) 3.8, Eosinophils (%) (Auto) 2.2, Basophils (%) (Auto) 0.4, Sodium Level 140, Potassium Level 3.4L, Chloride Level 100, Carbon Dioxide Level 26, Anion Gap 14, Blood Urea Nitrogen 13, Creatinine 0.8, Estimat Glomerular Filtration Rate > 60, Glucose Level 128H, Uric Acid 3.9, Calcium Level 9.5, Phosphorus Level 3.7, Magnesium Level 1.9, Total Bilirubin 0.5, Aspartate Amino Transf (AST/SGOT) 60H, Alanine Aminotransferase (ALT/SGPT) 51, Alkaline Phosphatase 77, C-Reactive Protein, Quantitative 3.8H, Pro-B-Type Natriuretic Peptide 336H, Total Protein 7.6, Albumin 3.2L, Globulin 4.4, Albumin/Globulin Ratio 0.7L, Digoxin Level 1.5 Height (Feet): 5 Height (Inches): 5.00 Weight (Pounds): 184 General Appearance: WD/WN, no apparent distress, alert, confused, agitated Robby Beltre M.D. February 18, 2018 15:43
[2018-02-18] MEDS ORDERED: Lidocaine 1% Plain 30 ml INJ ONE (16:00)
[2018-02-18] MEDS ORDERED: Heparin 2000 units/Ns 1000ml INJ ONE (16:00)
--- NOTE | 2018-02-18 16:18 | Cardiac Electrophysiology PN ---
Assessment/Plan Assessment/Plan 1. Sinus tachycardia with the heart rate up to 140 beats per minute. Due to sepsis and anemia. No evidence of atrial fibrillation. Continue digoxin and Coreg 2. Hypertension, on Coreg 3.125 mg b.i.d. 3. Nonspecific ST-T wave abnormalities. Continue Coreg. 4. Respiratory failure, status post tracheostomy. 5. Dysphagia, status post percutaneous endoscopic gastrostomy placement. 6. Seizure disorder. 7. Hydrocephalus. LUIS RN Subjective Subjective Nonverbal. Off Vent on T tube via trach.No event Objective Last 24 Hour Vital Signs Date Time Temp Pulse Resp B/P (MAP) Pulse Ox O2 Delivery O2 Flow Rate FiO2 02/18/18 12:35 T-piece 6.0 28 02/18/18 12:35 99 T-piece 6.0 28 02/18/18 12:00 98.2 94 20 107/71 98 Trach Collar 6.0 28 98.2 02/18/18 12:00 94 02/18/18 09:02 98.2 02/18/18 08:35 106 126/72 02/18/18 08:35 106 02/18/18 08:32 100.3 02/18/18 08:00 100.1 106 20 126/72 97 Trach Collar 6.0 28 100.1 02/18/18 08:00 69 02/18/18 07:30 T-piece 6.0 28 02/18/18 07:30 98 T-piece 6.0 28 02/18/18 07:30 101 20 T-piece 6.0 28 02/18/18 04:00 100.3 112 18 111/67 98 Trach Collar 6.0 28 100.3 02/18/18 03:27 107 02/18/18 01:16 99 T-piece 6.0 28 02/18/18 01:16 T-piece 6.0 28 02/18/18 00:00 99.7 108 17 111/69 98 Trach Collar 6.0 28 99.7 02/17/18 23:33 116 02/17/18 23:12 113 108/73 02/17/18 20:50 99.8 104 20 108/73 98 Trach Collar 6.0 28 99.8 02/17/18 19:50 T-piece 6.0 28 02/17/18 19:50 98 T-piece 6.0 28 02/17/18 19:49 108 22 T-piece 6.0 28 Intake and Output 02/17/18 02/18/18 19:00 07:00 Intake Total 1241.667 ml 758.334 ml Output Total 1200 ml 450 ml Balance 41.667 ml 308.334 ml Intake Free Water 250 ml 200 ml IV Total 441.667 ml 508.334 ml Tube Feeding 550 ml 50 ml Output Urine Total 1200 ml 450 ml # Bowel Movements 2 1 Laboratory Tests Test 02/18/18 09:20 White Blood Count 12.7 K/UL (4.8-10.8) H Red Blood Count 3.44 M/UL (4.20-5.40) L Hemoglobin 10.4 G/DL (12.0-16.0) L Hematocrit 31.4 % (37.0-47.0) L Mean Corpuscular Volume 91 FL (80-99) Mean Corpuscular Hemoglobin 30.2 PG (27.0-31.0) Mean Corpuscular Hemoglobin Concent 33.1 G/DL (32.0-36.0) Red Cell Distribution Width 12.3 % (11.6-14.8) Platelet Count 333 K/UL (150-450) Mean Platelet Volume 7.9 FL (6.5-10.1) Neutrophils (%) (Auto) 79.9 % (45.0-75.0) H Lymphocytes (%) (Auto) 13.7 % (20.0-45.0) L Monocytes (%) (Auto) 3.8 % (1.0-10.0) Eosinophils (%) (Auto) 2.2 % (0.0-3.0) Basophils (%) (Auto) 0.4 % (0.0-2.0) Sodium Level 140 MMOL/L (136-145) Potassium Level 3.4 MMOL/L (3.5-5.1) L Chloride Level 100 MMOL/L (98-107) Carbon Dioxide Level 26 MMOL/L (21-32) Anion Gap 14 mmol/L (5-15) Blood Urea Nitrogen 13 mg/dL (7-18) Creatinine 0.8 MG/DL (0.55-1.30) Estimat Glomerular Filtration Rate > 60 mL/min (>60) Glucose Level 128 MG/DL (74-106) H Uric Acid 3.9 MG/DL (2.6-7.2) Calcium Level 9.5 MG/DL (8.5-10.1) Phosphorus Level 3.7 MG/DL (2.5-4.9) Magnesium Level 1.9 MG/DL (1.8-2.4) Total Bilirubin 0.5 MG/DL (0.2-1.0) Aspartate Amino Transf (AST/SGOT) 60 U/L (15-37) H Alanine Aminotransferase (ALT/SGPT) 51 U/L (12-78) Alkaline Phosphatase 77 U/L (46-116) C-Reactive Protein, Quantitative 3.8 mg/dL (0.00-0.90) H Pro-B-Type Natriuretic Peptide 336 pg/mL (0-125) H Total Protein 7.6 G/DL (6.4-8.2) Albumin 3.2 G/DL (3.4-5.0) L Globulin 4.4 g/dL Albumin/Globulin Ratio 0.7 (1.0-2.7) L Digoxin Level 1.5 NG/ML (0.9-2.0) Objective HEAD AND NECK: No JVD. Status post tracheostomy. LUNGS: Coarse rhonchi. CARDIOVASCULAR: Tachycardic. S1 and S2 with no gallop. ABDOMEN: Status post G-tube. EXTREMITIES: 1+ pitting edema. Dat Oh MD February 18, 2018 16:18
--- NOTE | 2018-02-18 18:06 | Infectious Diseases Prog Note ---
Assessment/Plan Assessment/Plan ASSESSMENT: The patient is a 47-year-old female with: Fever Leukocytosis Sepsis Rule out bacteremia, Doubt pneumonia ScX: Serratia and GNR CXR : bibasilar atelectasis. Probable UTI Ucx : 40K , P. Mirabilis , [place] CT: Trace pleural effusion. Left greater than right hydronephrosis and hydroureter/no urinary stone. Cholelithiasis. Chronic encephalopathy/anoxic brain injury. History of vent-dependent respiratory failure. Status post PEG and trach. Hypertension. Seizure disorder. Hydrocephalus. PLAN: continue the patient IV Merrem and DC vancomycin and cefepime d# 3 Monitor CBC. Monitor BMP. Monitor cultures (blood, sputum, urine). Monitor chest x-ray.tract Subjective Constitutional: Denies: no symptoms, fever, chills, fatigue, anorexia, drenching sweats, other Allergies: Coded Allergies: PENICILLINS (Verified Allergy, Unknown, 02/14/18) Subjective comfortable Objective Vital Signs Last 24 Hour Vital Signs Date Time Temp Pulse Resp B/P (MAP) Pulse Ox O2 Delivery O2 Flow Rate FiO2 02/18/18 17:40 100.9 02/18/18 16:00 115 02/18/18 16:00 100.9 116 20 139/75 97 Trach Collar 6.0 28 100.9 02/18/18 12:35 T-piece 6.0 28 02/18/18 12:35 99 T-piece 6.0 28 02/18/18 12:00 98.2 94 20 107/71 98 Trach Collar 6.0 28 98.2 02/18/18 12:00 94 02/18/18 09:02 98.2 02/18/18 08:35 106 126/72 02/18/18 08:35 106 02/18/18 08:32 100.3 02/18/18 08:00 100.1 106 20 126/72 97 Trach Collar 6.0 28 100.1 02/18/18 08:00 69 02/18/18 07:30 T-piece 6.0 28 02/18/18 07:30 98 T-piece 6.0 28 02/18/18 07:30 101 20 T-piece 6.0 28 02/18/18 04:00 100.3 112 18 111/67 98 Trach Collar 6.0 28 100.3 02/18/18 03:27 107 02/18/18 01:16 99 T-piece 6.0 28 02/18/18 01:16 T-piece 6.0 28 02/18/18 00:00 99.7 108 17 111/69 98 Trach Collar 6.0 28 99.7 02/17/18 23:33 116 02/17/18 23:12 113 108/73 02/17/18 20:50 99.8 104 20 108/73 98 Trach Collar 6.0 28 99.8 02/17/18 19:50 T-piece 6.0 28 02/17/18 19:50 98 T-piece 6.0 28 02/17/18 19:49 108 22 T-piece 6.0 28 Height (Feet): 5 Height (Inches): 5.00 Weight (Pounds): 184 HEENT: atraumatic Respiratory/Chest: no respiratory distress Cardiovascular: regular rhythm Abdomen: soft, non tender Laboratory Tests Test 02/18/18 09:20 02/18/18 09:51 02/18/18 16:25 White Blood Count 12.7 K/UL (4.8-10.8) H Red Blood Count 3.44 M/UL (4.20-5.40) L Hemoglobin 10.4 G/DL (12.0-16.0) L Hematocrit 31.4 % (37.0-47.0) L Mean Corpuscular Volume 91 FL (80-99) Mean Corpuscular Hemoglobin 30.2 PG (27.0-31.0) Mean Corpuscular Hemoglobin Concent 33.1 G/DL (32.0-36.0) Red Cell Distribution Width 12.3 % (11.6-14.8) Platelet Count 333 K/UL (150-450) Mean Platelet Volume 7.9 FL (6.5-10.1) Neutrophils (%) (Auto) 79.9 % (45.0-75.0) H Lymphocytes (%) (Auto) 13.7 % (20.0-45.0) L Monocytes (%) (Auto) 3.8 % (1.0-10.0) Eosinophils (%) (Auto) 2.2 % (0.0-3.0) Basophils (%) (Auto) 0.4 % (0.0-2.0) Sodium Level 140 MMOL/L (136-145) Potassium Level 3.4 MMOL/L (3.5-5.1) L Chloride Level 100 MMOL/L (98-107) Carbon Dioxide Level 26 MMOL/L (21-32) Anion Gap 14 mmol/L (5-15) Blood Urea Nitrogen 13 mg/dL (7-18) Creatinine 0.8 MG/DL (0.55-1.30) Estimat Glomerular Filtration Rate > 60 mL/min (>60) Glucose Level 128 MG/DL (74-106) H Uric Acid 3.9 MG/DL (2.6-7.2) Calcium Level 9.5 MG/DL (8.5-10.1) Phosphorus Level 3.7 MG/DL (2.5-4.9) Magnesium Level 1.9 MG/DL (1.8-2.4) Total Bilirubin 0.5 MG/DL (0.2-1.0) Aspartate Amino Transf (AST/SGOT) 60 U/L (15-37) H Alanine Aminotransferase (ALT/SGPT) 51 U/L (12-78) Alkaline Phosphatase 77 U/L (46-116) C-Reactive Protein, Quantitative 3.8 mg/dL (0.00-0.90) H Pro-B-Type Natriuretic Peptide 336 pg/mL (0-125) H Total Protein 7.6 G/DL (6.4-8.2) Albumin 3.2 G/DL (3.4-5.0) L Globulin 4.4 g/dL Albumin/Globulin Ratio 0.7 (1.0-2.7) L Digoxin Level 1.5 NG/ML (0.9-2.0) Stool Occult Blood Pending Vancomycin Level Trough 12.8 ug/mL (5.0-12.0) H Current Medications Medications (Trade) Dose Ordered Sig/Bere Route PRN Reason Start Time Stop Time Status Last Admin Dose Admin Acetaminophen (Tylenol) 650 mg Q6H PRN GT Fever/Headache/Mild Pain 02/18/18 06:30 03/20/18 06:29 02/18/18 17:40 Bisacodyl (Dulcolax) 10 mg DAILY RECTAL 02/18/18 09:00 03/17/18 08:59 02/18/18 08:33 Carvedilol (Coreg) 6.25 mg EVERY 12 HOURS GT 02/17/18 23:05 03/19/18 23:04 02/18/18 08:35 Cefepime HCl 2 gm/ Dextrose 55 ml @ 110 mls/hr Q12H IV 02/18/18 00:00 02/22/18 00:00 02/18/18 12:13 Chlorhexidine Gluconate (Jane-Hex 2%) 1 applic DAILY@2000 TOPIC 02/18/18 20:00 03/19/18 19:59 Dextrose (Dextrose 50%) 25 ml STAT PRN IV Hypoglycemia 02/18/18 07:15 03/17/18 07:14 Dextrose (Dextrose 50%) 50 ml STAT PRN IV Hypoglycemia 02/18/18 07:15 03/17/18 07:14 Digoxin (Lanoxin) 0.25 mg DAILY PEG 02/18/18 09:00 03/19/18 08:59 02/18/18 08:35 Famotidine (Pepcid) 20 mg BID GT 02/18/18 09:00 03/17/18 08:59 02/18/18 17:36 Heparin Sodium (Porcine) (Heparin 5000 units/ml) 5,000 units EVERY 12 HOURS SUBQ 02/17/18 23:06 03/19/18 23:05 02/18/18 08:37 Ipratropium [place] (Atrovent) 500 mcg EVERY 2 HOURS PRN HHN Shortness of Breath 02/18/18 00:00 02/20/18 07:44 Lactulose (Cephulac) 20 gm BID GT 02/18/18 09:00 03/17/18 08:59 02/18/18 08:31 Levetiracetam (Keppra) 750 mg EVERY 12 HOURS GT 02/17/18 22:15 03/17/18 08:59 02/18/18 08:33 Lorazepam (Ativan 2mg/ml 1ml) 1 mg Q4H PRN IV For Seizures 02/18/18 09:30 02/25/18 09:29 Magnesium Hydroxide (Mom) 30 ml DAILY PRN GT Constipation 02/18/18 09:00 03/17/18 06:59 Metronidazole 100 ml @ 100 mls/hr Q12HR IVPB 02/17/18 22:45 02/24/18 22:44 02/18/18 08:31 Multivitamins Therapeutic (Therapeutic Multivitamin) 1 ea DAILY ORAL 02/18/18 09:00 03/17/18 08:59 02/18/18 08:33 Vancomycin HCl (Vanco rx to dose) 1 ea DAILY PRN MISC Per rx protocol 02/18/18 09:00 03/17/18 06:44 Vancomycin HCl/ Dextrose 250 ml @ 166.667 mls/hr Q12H IVPB 02/18/18 05:00 02/22/18 16:59 02/18/18 17:36 Vitamin A/Vitamin D (A & D Oint) 1 applic EVERY 12 HOURS TOPIC 02/17/18 22:15 03/17/18 08:59 02/18/18 08:31 Bobby Aquino MD February 18, 2018 18:06
--- NOTE | 2018-02-18 19:02 | Consultation ---
Consult Note Consult Note NEUROLOGY CONSULTATION: Full note dictated #[id number] 47 y/o, HF of ?H who has a PH of HTN, an anoxic encephalopathy, hydrocephalus, seizure disorder, chronic respiratory failure s/p tracheostomy, who was admitted for urinary sepsis on 02/15/18. As per her nurse she had had constant right upper extremity jerking movements ever since her admission. However this morning at ~ 9 AM she had a GTC seizure. ON EXAM: Unresponsive. Eye deviation to right Right upper extremity jerky movements - myoclonus vs partial seizures. IMPRESSION: Breakthrough generalized Sz possibly due to acute illness. Underlying structural brain disease. REC: CT of brain EEG Increase Keppra to 1.5 G q 12 H IV for few days and then give same dose via GT. Tammi Miranda M.D., M.S.P.H. TAMMI MIRANDA February 18, 2018 19:02
--- NOTE | 2018-02-18 21:15 | Consultation ---
DATE OF CONSULTATION: 02/18/2018 NEUROLOGY CONSULTATION CONSULTING PHYSICIAN: Chinmay Miranda M.D. REQUESTING PHYSICIAN: Jak Damon M.D. HISTORY: Ms Dianne Hair is a 47-year-old, lady, of unknown handedness, who does have a past history of hypertension, cardiopulmonary arrest - status post anoxic ischemic encephalopathy, hydrocephalus, an undefined seizure disorder, and chronic respiratory failure for which she is status post a tracheostomy, who was hospitalized on 02/15/2018 for fever and hematuria that was due to urinary sepsis. As per her nurse, she has had constant right upper extremity jerking movements ever since she was admitted. However, this morning at approximately 9 a.m., she was noted to have a generalized tonic-clonic seizure. She has not had any further generalized seizures, but continues to have the right upper extremity abnormal jerking. At this point in time, the patient is unresponsive and unable to give any history. PAST MEDICAL HISTORY: Significant for hypertension, anoxic ischemic encephalopathy, hydrocephalus, seizure disorder of unknown type, chronic respiratory failure - status post tracheostomy, and prior infections. FAMILY HISTORY: Unavailable. PERSONAL HISTORY: Home: She lives in a long-term. Work: She is unemployed. Habits: Unknown. PRESENT MEDICATIONS: Meropenem, lorazepam 2 mg IV q.4 hours p.r.n., Dulcolax p.r.n., digoxin, Pepcid, lactulose, milk of magnesia, multivitamins, Tylenol p.r.n., Atrovent p.r.n., heparin for DVT prophylaxis, carvedilol, Keppra 750 mg q.12 hours via G-tube, and vitamin A and D. PHYSICAL EXAMINATION: GENERAL: She is a well-developed, well-nourished, slightly obese lady, lying in bed, in no acute distress, exhibiting a right gaze preference and episodic right upper extremity jerky movements. VITAL SIGNS: Pulse 116 per minute, blood pressure 139/75 mmHg, respirations 20 per minute, and temperature 100.9 degrees Fahrenheit. HEAD: Normocephalic and atraumatic. EENT: Examination benign except for a right gaze preference. NECK: No neck rigidity was observed. NEUROLOGICAL EXAMINATION: MENTAL STATUS EXAMINATION: She had her eyes open, but she was unresponsive even to deep pain. Further mental status testing was impossible. SPEECH: Could not be tested. LANGUAGE: Could not be tested. CRANIAL NERVE EXAMINATION: II: She did not blink to threat. III, IV & : The external ocular movements were present on oculocephalic maneuvers, but she did have a right gaze preference. The pupils were 3 mm in diameter and reactive sluggishly to light. V & VII: The corneal reflexes were subdued bilaterally. VIII: She did not respond to sound and had no nystagmus. IX & X: The gag reflex was present, but subdued. XI: The sternocleidomastoids and trapezii did not function. XII: Could not be tested adequately. MOTOR SYSTEM: The tone was increased in all four extremities with a significant degree of spasticity. Examination of muscle mass revealed wasting of the small hand and foot muscles. Examination of power was impossible to perform because even on applying deep painful stimuli, no movements were seen. SENSORY EXAMINATION: She did not respond even to deep pain. REFLEXES: 0 at the biceps, triceps, brachioradialis, knees, and ankles. The plantar responses were extensor bilaterally. COORDINATION, STANCE & GAIT: Could not be tested. DIAGNOSTIC IMPRESSION: 1. Ms Dianne Hair is a 47-year-old, lady, of unknown handedness, who does have a past history of hypertension, anoxic ischemic encephalopathy, hydrocephalus, seizure disorder, and chronic respiratory failure, who was admitted on 02/15/2018 for urinary sepsis. She has had constant right upper extremity jerking movements ever since her admission, but this morning was noted to have a generalized tonic-clonic seizure. At this point in time, she is unresponsive and unable to give me any history. 2. On neurological examination at this time, she is unresponsive even to deep painful stimuli. She does have right gaze preference. She also has constant jerking movements of the right upper extremity. Her deep tendon reflexes are absent and her plantar responses are extensor bilaterally. 3. The patient's history and neurological examination are most compatible with a severe encephalopathy, which by report is of an anoxic ischemic type. She also has a history of seizures and most probably had a breakthrough generalized tonic-clonic seizure this morning. She, in addition, was exhibiting some right upper extremity jerking movements, which may either represent segmental myoclonus versus partial seizures. RECOMMENDATIONS: 1. Agree with management thus far. 2. An EEG will be ordered to evaluate the patient for the type of seizure disorder. 3. A CT scan of the brain should be performed to evaluate the patient for acute intracranial pathology. 4. The dose of Keppra should be increased to 1.5 grams q.12 hours intravenously as she does weigh 83 kilos. 5. The patient should be observed closely and depending on how she fares, further recommendations will be given. Thank you for entrusting me with the care of Ms. Hair. I shall follow her with you. Chinmay Miranda M.D., M.S.P.H. DR: SUDHA JOB#: [id number] MTDD
[2018-02-18] MEDS: Meropenem 1 GM in NS 110 ML IVPB SCH (21:45)
[2018-02-18] MEDS: levETIRAcetam 1,500 MG in D5W 95 ML IV SCH (21:45)
[2018-02-18] MEDS: Dyna-Hex 2% Top Sol 2oz TOPIC SCH (21:45)
[2018-02-18] MEDS ORDERED: NS 275ml ONE (22:23)
[2018-02-18] MEDS ORDERED: Tubing IV Secondary IV ONE (22:23)
[2018-02-18] MEDS ORDERED: NS Irrig 1000ml ONE (22:23)
--- NOTE | 2018-02-18 22:53 | Internal Med Progress Note ---
Subjective Physician Name Jak Damon Attending Physician Jak Damon MD Current Medications Medications (Trade) Dose Ordered Sig/Bere Route PRN Reason Start Time Stop Time Status Last Admin Dose Admin Acetaminophen (Tylenol) 650 mg Q6H PRN GT Fever/Headache/Mild Pain 02/18/18 06:30 03/20/18 06:29 02/18/18 17:40 Bisacodyl (Dulcolax) 10 mg DAILY RECTAL 02/18/18 09:00 03/17/18 08:59 02/18/18 08:33 Carvedilol (Coreg) 6.25 mg EVERY 12 HOURS GT 02/17/18 23:05 03/19/18 23:04 02/18/18 21:46 Chlorhexidine Gluconate (Jane-Hex 2%) 1 applic DAILY@2000 TOPIC 02/18/18 20:00 03/19/18 19:59 02/18/18 21:45 Dextrose (Dextrose 50%) 25 ml STAT PRN IV Hypoglycemia 02/18/18 07:15 03/17/18 07:14 Dextrose (Dextrose 50%) 50 ml STAT PRN IV Hypoglycemia 02/18/18 07:15 03/17/18 07:14 Digoxin (Lanoxin) 0.25 mg DAILY PEG 02/18/18 09:00 03/19/18 08:59 02/18/18 08:35 Famotidine (Pepcid) 20 mg BID GT 02/18/18 09:00 03/17/18 08:59 02/18/18 17:36 Heparin Sodium (Porcine) (Heparin 5000 units/ml) 5,000 units EVERY 12 HOURS SUBQ 02/17/18 23:06 03/19/18 23:05 02/18/18 21:54 Ipratropium [place] (Atrovent) 500 mcg EVERY 2 HOURS PRN HHN Shortness of Breath 02/18/18 00:00 02/20/18 07:44 Lactulose (Cephulac) 20 gm BID GT 02/18/18 09:00 03/17/18 08:59 02/18/18 17:40 Levetiracetam 1500 mg/Dextrose 110 ml @ 440 mls/hr Q12HR IV 02/18/18 20:30 03/20/18 20:29 02/18/18 21:45 Lorazepam (Ativan 2mg/ml 1ml) 1 mg Q4H PRN IV For Seizures 02/18/18 09:30 02/25/18 09:29 Magnesium Hydroxide (Mom) 30 ml DAILY PRN GT Constipation 02/18/18 09:00 03/17/18 06:59 Meropenem 1 gm/ Sodium Chloride 110 ml @ 220 mls/hr Q8HR IVPB 02/18/18 22:00 02/23/18 21:59 02/18/18 21:45 Multivitamins Therapeutic (Therapeutic Multivitamin) 1 ea DAILY ORAL 02/18/18 09:00 03/17/18 08:59 02/18/18 08:33 Vitamin A/Vitamin D (A & D Oint) 1 applic EVERY 12 HOURS TOPIC 02/17/18 22:15 03/17/18 08:59 02/18/18 21:00 Allergies: Coded Allergies: PENICILLINS (Verified Allergy, Unknown, 02/14/18) Subjective on Trach collar, awake, responsive with open eyes, episode of seizure in morning. WBC: 12.7 Objective Last Vital Signs Date Time Temp Pulse Resp B/P (MAP) Pulse Ox O2 Delivery O2 Flow Rate FiO2 02/18/18 21:46 107 127/77 02/18/18 19:07 T-piece 6.0 28 02/18/18 19:07 24 02/18/18 19:07 98 02/18/18 18:10 99.1 Laboratory Tests Test 02/18/18 09:20 02/18/18 09:51 02/18/18 16:25 White Blood Count 12.7 K/UL (4.8-10.8) H Red Blood Count 3.44 M/UL (4.20-5.40) L Hemoglobin 10.4 G/DL (12.0-16.0) L Hematocrit 31.4 % (37.0-47.0) L Mean Corpuscular Volume 91 FL (80-99) Mean Corpuscular Hemoglobin 30.2 PG (27.0-31.0) Mean Corpuscular Hemoglobin Concent 33.1 G/DL (32.0-36.0) Red Cell Distribution Width 12.3 % (11.6-14.8) Platelet Count 333 K/UL (150-450) Mean Platelet Volume 7.9 FL (6.5-10.1) Neutrophils (%) (Auto) 79.9 % (45.0-75.0) H Lymphocytes (%) (Auto) 13.7 % (20.0-45.0) L Monocytes (%) (Auto) 3.8 % (1.0-10.0) Eosinophils (%) (Auto) 2.2 % (0.0-3.0) Basophils (%) (Auto) 0.4 % (0.0-2.0) Sodium Level 140 MMOL/L (136-145) Potassium Level 3.4 MMOL/L (3.5-5.1) L Chloride Level 100 MMOL/L (98-107) Carbon Dioxide Level 26 MMOL/L (21-32) Anion Gap 14 mmol/L (5-15) Blood Urea Nitrogen 13 mg/dL (7-18) Creatinine 0.8 MG/DL (0.55-1.30) Estimat Glomerular Filtration Rate > 60 mL/min (>60) Glucose Level 128 MG/DL (74-106) H Uric Acid 3.9 MG/DL (2.6-7.2) Calcium Level 9.5 MG/DL (8.5-10.1) Phosphorus Level 3.7 MG/DL (2.5-4.9) Magnesium Level 1.9 MG/DL (1.8-2.4) Total Bilirubin 0.5 MG/DL (0.2-1.0) Aspartate Amino Transf (AST/SGOT) 60 U/L (15-37) H Alanine Aminotransferase (ALT/SGPT) 51 U/L (12-78) Alkaline Phosphatase 77 U/L (46-116) C-Reactive Protein, Quantitative 3.8 mg/dL (0.00-0.90) H Pro-B-Type Natriuretic Peptide 336 pg/mL (0-125) H Total Protein 7.6 G/DL (6.4-8.2) Albumin 3.2 G/DL (3.4-5.0) L Globulin 4.4 g/dL Albumin/Globulin Ratio 0.7 (1.0-2.7) L Digoxin Level 1.5 NG/ML (0.9-2.0) Stool Occult Blood Pending Vancomycin Level Trough 12.8 ug/mL (5.0-12.0) H Intake and Output 02/17/18 02/18/18 19:00 07:00 Intake Total 1241.667 ml 758.334 ml Output Total 1200 ml 450 ml Balance 41.667 ml 308.334 ml Intake Free Water 250 ml 200 ml IV Total 441.667 ml 508.334 ml Tube Feeding 550 ml 50 ml Output Urine Total 1200 ml 450 ml # Bowel Movements 2 1 Objective General: No acute distress, awake, responsive with open eyes. HEENT: NCAT, sclera anicteric, PERRL, Neck: Supple, Trach site intact. Lungs: Fair inspiratory effort, decrease breath sound on bases, no Wheeze or Rales. Heart: Regular rate and rhythm, normal S1/S2, no murmurs, distant heart sound. Abdomen: soft, nontender, nondistended. Normoactive bowel sounds, Obesity, PEG site intact. : Baxter cath. Extremities: No Cyanosis , clubbing, +1 LE's edema. Neuro: not verbal , unable to F/U with commands. Contracted RUE, unable to move LE's. Skin: warm, no rashes Assessment/Plan Assessment/Plan Fever and Leukocytosis possible Sepsis / bacteremia, UTI Chronic encephalopathy/anoxic brain injury. History of vent-dependent respiratory failure. Status post PEG and trach. Hypertension. Seizure disorder. Hydrocephalus. Plan: Abx: Meropenem F/U with Labs and cultures Tube feeding @ 50 cc/hr F/U with ID recommendations. DC Planning to SNF soon On Keppra IV Neurology consult with Jak Grewal MD February 18, 2018 22:53
[2018-02-19] VITALS: BP 123/77
[2018-02-19 04:00] VITALS: BP 117/74
[2018-02-19] MEDS: Meropenem 1 GM in NS 110 ML IVPB SCH ×3 (06:40→20:56)
[2018-02-19 08:00] VITALS: BP 129/86
[2018-02-19] MEDS: Lactulose 20gm/30ml UDC GT SCH ×2 (08:46→20:55)
[2018-02-19] MEDS: Carvedilol 6.25mg Tab GT SCH ×2 (08:46→20:56)
[2018-02-19] MEDS: Vitamin A&D Oint 2oz Tube TOPIC SCH ×2 (08:47→20:57)
[2018-02-19] MEDS: Heparin 5000 units/ml inj SUBQ SCH ×2 (08:49→20:58)
--- NOTE | 2018-02-19 09:34 | General Progress Note ---
Assessment/Plan Assessment/Plan ASSESSMENT AND RECS: 1. Anemia likely secondary to anemia of iron deficiency. --> due to low ferritin and elevated tibc is mixed picture --> have given iv iron and ferrous sulfate po doses as well --> hgb > 7 is the goal 2. Anemia due to hemodilution. Continue closely monitor fluid status. --> no evidence of hemolysis, hgb goal is >7 3. Leukocytosis secondary to underlying infection. UTI --> monitor for improvement, appreciate id recs 4. Potential right hydronephrosis, urinary infection. 5. Potential ileus. 6. Chronic respiratory failure, status post tracheostomy. 7. HTN, systolic blood pressure goal less than 140. 8. Dysphagia status post PEG tube. Subjective Constitutional: Denies: no symptoms, chills, diaphoresis, fever, malaise, weakness, other Cardiovascular: Denies: no symptoms, chest pain, edema, irregular heart rate, lightheadedness, palpitations, syncope, other Respiratory: Denies: no symptoms, cough, orthopnea, shortness of breath, SOB with excertion, SOB at rest, sputum, stridor, wheezing, other Gastrointestinal/Abdominal: Reports: no symptoms Neurologic/Psychiatric: Reports: no symptoms Endocrine: Reports: no symptoms Hematologic/Lymphatic: Reports: anemia Allergies: Coded Allergies: PENICILLINS (Verified Allergy, Unknown, 02/14/18) Subjective no fevers or chills, no events noted Objective Last 24 Hour Vital Signs Date Time Temp Pulse Resp B/P (MAP) Pulse Ox O2 Delivery O2 Flow Rate FiO2 02/19/18 08:46 116 129/86 02/19/18 08:46 116 02/19/18 08:34 99 T-piece 6.0 28 02/19/18 08:34 T-piece 6.0 28 02/19/18 08:33 116 20 T-piece 6.0 28 02/19/18 08:00 99.1 112 18 129/86 100 Trach Collar 28 99.1 02/19/18 04:00 98.4 110 20 117/74 95 Trach Collar 6.0 28 98.4 02/19/18 04:00 110 02/19/18 01:12 T-piece 6.0 28 02/19/18 01:12 98 T-piece 6.0 28 02/19/18 00:00 98.1 110 20 123/77 100 Trach Collar 6.0 28 98.1 02/19/18 00:00 103 02/18/18 21:46 107 127/77 02/18/18 20:00 105 02/18/18 20:00 99.1 107 20 127/77 100 Trach Collar 6.0 28 99.1 02/18/18 19:07 T-piece 6.0 28 02/18/18 19:07 104 24 T-piece 6.0 28 02/18/18 19:07 98 T-piece 6.0 28 02/18/18 18:10 99.1 02/18/18 17:40 100.9 02/18/18 16:00 115 02/18/18 16:00 100.9 116 20 139/75 97 Trach Collar 6.0 28 100.9 02/18/18 12:35 T-piece 6.0 28 02/18/18 12:35 99 T-piece 6.0 28 02/18/18 12:00 98.2 94 20 107/71 98 Trach Collar 6.0 28 98.2 02/18/18 12:00 94 Intake and Output 02/18/18 02/19/18 19:00 07:00 Output Total 850 ml 800 ml Balance -850 ml -800 ml Output Urine Total 850 ml 800 ml # Bowel Movements 1 Laboratory Tests 02/18/18 09:51: Stool Occult Blood [Pending] 02/18/18 16:25: Vancomycin Level Trough 12.8H Height (Feet): 5 Height (Inches): 5.00 Weight (Pounds): 184 General Appearance: alert EENT: normal ENT inspection Cardiovascular: regular rhythm Respiratory/Chest: normal breath sounds Abdomen: no mass Extremities: non-tender Edema: 1+ Leg (L), 1+ Leg (R) Neurologic: responsive Skin: warm/dry Objective s/p peg and trach Aaron Schmidt MD February 19, 2018 09:33
[2018-02-19] MEDS: Multivitamins W/Minerals 15 ML UDC GT SCH (09:39)
[2018-02-19] MEDS: levETIRAcetam 1,500 MG in D5W 95 ML IV SCH ×2 (10:18→20:55)
--- NOTE | 2018-02-19 10:37 | Infectious Diseases Prog Note ---
Assessment/Plan Assessment/Plan ASSESSMENT: The patient is a 47-year-old female with: Fever, .SP Leukocytosis, mild Sepsis, SP Doubt pneumonia ScX: Serratia and PSA CXR : bibasilar atelectasis. Probable UTI 02/15 Ucx : 40K ESBL P. Mirabilis , Providencia , repeat 02/15 Ucx : VRE and Mixed growth CT: Trace pleural effusion. Left greater than right hydronephrosis and hydroureter/no urinary stone. Cholelithiasis. ?Generalized tonic-clonic seizure ( before starting Merrem ) Chronic encephalopathy/anoxic brain injury. History of vent-dependent respiratory failure. Status post PEG and trach. Hypertension. Seizure disorder. Hydrocephalus. PLAN: continue the patient IV Merrem d# 2 / 10, upon DC will change to Invanz to complete the course ( may consider changing AB Rx if Neuro thinks that this contributes to SZ ) 02/18 vancomycin and cefepime d# 3 Monitor CBC. Monitor BMP. Monitor cultures (blood,) Monitor chest x-ray.tract Neuro following )( EEG and CT ) Subjective Constitutional: Denies: no symptoms, fever, chills, fatigue, anorexia, drenching sweats, other Allergies: Coded Allergies: PENICILLINS (Verified Allergy, Unknown, 02/14/18) Subjective comfortable Objective Vital Signs Last 24 Hour Vital Signs Date Time Temp Pulse Resp B/P (MAP) Pulse Ox O2 Delivery O2 Flow Rate FiO2 02/19/18 08:46 116 129/86 02/19/18 08:46 116 02/19/18 08:34 99 T-piece 6.0 28 02/19/18 08:34 T-piece 6.0 28 02/19/18 08:33 116 20 T-piece 6.0 28 02/19/18 08:00 99.1 112 18 129/86 100 Trach Collar 28 99.1 02/19/18 04:00 98.4 110 20 117/74 95 Trach Collar 6.0 28 98.4 02/19/18 04:00 110 02/19/18 01:12 T-piece 6.0 28 02/19/18 01:12 98 T-piece 6.0 28 02/19/18 00:00 98.1 110 20 123/77 100 Trach Collar 6.0 28 98.1 02/19/18 00:00 103 02/18/18 21:46 107 127/77 02/18/18 20:00 105 02/18/18 20:00 99.1 107 20 127/77 100 Trach Collar 6.0 28 99.1 02/18/18 19:07 T-piece 6.0 28 02/18/18 19:07 104 24 T-piece 6.0 28 02/18/18 19:07 98 T-piece 6.0 28 02/18/18 18:10 99.1 02/18/18 17:40 100.9 02/18/18 16:00 115 02/18/18 16:00 100.9 116 20 139/75 97 Trach Collar 6.0 28 100.9 02/18/18 12:35 T-piece 6.0 28 02/18/18 12:35 99 T-piece 6.0 28 02/18/18 12:00 98.2 94 20 107/71 98 Trach Collar 6.0 28 98.2 02/18/18 12:00 94 Height (Feet): 5 Height (Inches): 5.00 Weight (Pounds): 184 HEENT: mucous membranes moist Respiratory/Chest: no respiratory distress Cardiovascular: regularly irregular Abdomen: no organomegaly Laboratory Tests Test 02/18/18 16:25 Vancomycin Level Trough 12.8 ug/mL (5.0-12.0) H Current Medications Medications (Trade) Dose Ordered Sig/Bere Route PRN Reason Start Time Stop Time Status Last Admin Dose Admin Acetaminophen (Tylenol) 650 mg Q6H PRN GT Fever/Headache/Mild Pain 02/18/18 06:30 03/20/18 06:29 02/18/18 17:40 Bisacodyl (Dulcolax) 10 mg DAILY RECTAL 02/18/18 09:00 03/17/18 08:59 02/19/18 08:46 Carvedilol (Coreg) 6.25 mg EVERY 12 HOURS GT 02/17/18 23:05 03/19/18 23:04 02/19/18 08:46 Chlorhexidine Gluconate (Jane-Hex 2%) 1 applic DAILY@1999 TOPIC 02/18/18 20:00 03/19/18 19:59 02/18/18 21:45 Dextrose (Dextrose 50%) 25 ml STAT PRN IV Hypoglycemia 5/16/18 07:15 03/17/18 07:14 Dextrose (Dextrose 50%) 50 ml STAT PRN IV Hypoglycemia 02/18/18 07:15 03/17/18 07:14 Digoxin (Lanoxin) 0.25 mg DAILY PEG 02/18/18 09:00 03/19/18 08:59 02/19/18 08:46 Famotidine (Pepcid) 20 mg Q12HR GT 02/19/18 21:00 03/17/18 08:59 Heparin Sodium (Porcine) (Heparin 5000 units/ml) 5,000 units EVERY 12 HOURS SUBQ 02/17/18 23:06 03/19/18 23:05 02/19/18 08:49 Ipratropium [place] (Atrovent) 500 mcg EVERY 2 HOURS PRN HHN Shortness of Breath 02/18/18 00:00 02/20/18 07:44 Lactulose (Cephulac) 20 gm EVERY 12 HOURS GT 02/19/18 21:00 03/17/18 08:59 Levetiracetam 1500 mg/Dextrose 110 ml @ 440 mls/hr Q12HR IV 02/18/18 20:30 03/20/18 20:29 02/19/18 10:18 Lorazepam (Ativan 2mg/ml 1ml) 1 mg Q4H PRN IV For Seizures 02/18/18 09:30 02/25/18 09:29 Magnesium Hydroxide (Mom) 30 ml DAILY PRN GT Constipation 02/18/18 09:00 03/17/18 06:59 Meropenem 1 gm/ Sodium Chloride 110 ml @ 220 mls/hr Q8HR IVPB 02/18/18 22:00 02/23/18 21:59 02/19/18 06:40 Multivitamins (Multivitamins W/ Minerals 15ml Liquid) 15 ml DAILY GT 02/19/18 09:00 03/21/18 08:59 02/19/18 09:39 Vitamin A/Vitamin D (A & D Oint) 1 applic EVERY 12 HOURS TOPIC 02/17/18 22:15 03/17/18 08:59 02/19/18 08:47 Bobby Aquino MD February 19, 2018 10:37
--- NOTE | 2018-02-19 11:09 | Diagnostic Imaging Report ---
Indications: Seizure Technique: Spiral acquisitions obtained through the brain. Angled axial and coronal 5 x 5 mm slices were reconstructed. Total dose length product 1291.63 mGycm. CTDI vol(s) 70.38 mGy. Dose reduction achieved using automated exposure control Comparison: None. Findings: There is massive ventriculomegaly. There is also evidence of extensive cerebral cortical volume loss. There is less extensive cerebellar volume loss. There is diffuse low-attenuation throughout the deep white matter, and in some areas also extending to the cortex, particularly in the bilateral temporal and parietal lobes. No acute intracranial hemorrhage or edema, mass effect nor midline shift. Visualized orbits and sinuses are unremarkable. The calvarium is intact. The mastoids are clear. Impression: Negative for acute intracranial bleed or mass effect Evidence of extensive cerebral and to a lesser extent cerebellar volume loss, consistent with known history of anoxic encephalopathy. Massive ventriculomegaly. Most likely on the next vacuo basis but could also indicate component of hydrocephalus Extensive deep white matter and cortical low attenuation, consistent with chronic ischemic changes presumably related to stated clinical history of anoxic encephalopathy The CT scanner at [facility] is accredited by the [employer] and the scans are performed using protocols designed to limit radiation exposure to as low as reasonably achievable to attain images of sufficient resolution adequate for diagnostic evaluation.
[2018-02-19 11:28] VITALS: BP 121/75
--- NOTE | 2018-02-19 11:33 | Pulmonology Progress Note ---
Assessment/Plan Problems: (1) Pneumonia (2) Severe sepsis (3) Acute renal failure (ARF) (4) HTN (hypertension) (5) Encephalopathy (6) Seizure disorder (7) Tracheostomy care Assessment/Plan respiratory treatment iv abx check sputum , and sensitivity, Serratio and Pseudomonas tolerating diet frequent suctioning titrate fio2 to sat of 92% trach site care check electrolytes dvt prophylaxis. Subjective ROS Limited/Unobtainable: No Constitutional: Reports: no symptoms HEENT: Repors: no symptoms Respiratory: Reports: no symptoms Cardiovascular: Reports: no symptoms Gastrointestinal/Abdominal: Reports: no symptoms Allergies: Coded Allergies: PENICILLINS (Verified Allergy, Unknown, 02/14/18) Objective Last 24 Hour Vital Signs Date Time Temp Pulse Resp B/P (MAP) Pulse Ox O2 Delivery O2 Flow Rate FiO2 02/19/18 11:28 100.0 110 20 121/75 98 Trach Collar 28 100.0 02/19/18 08:46 116 129/86 02/19/18 08:46 116 02/19/18 08:34 99 T-piece 6.0 28 02/19/18 08:34 T-piece 6.0 28 02/19/18 08:33 116 20 T-piece 6.0 28 02/19/18 08:00 99.1 112 18 129/86 100 Trach Collar 28 99.1 02/19/18 07:34 113 02/19/18 04:00 98.4 110 20 117/74 95 Trach Collar 6.0 28 98.4 02/19/18 04:00 110 02/19/18 01:12 T-piece 6.0 28 02/19/18 01:12 98 T-piece 6.0 28 02/19/18 00:00 98.1 110 20 123/77 100 Trach Collar 6.0 28 98.1 02/19/18 00:00 103 02/18/18 21:46 107 127/77 02/18/18 20:00 105 02/18/18 20:00 99.1 107 20 127/77 100 Trach Collar 6.0 28 99.1 02/18/18 19:07 T-piece 6.0 28 02/18/18 19:07 104 24 T-piece 6.0 28 02/18/18 19:07 98 T-piece 6.0 28 5/16/18 18:10 99.1 02/18/18 17:40 100.9 02/18/18 16:00 115 02/18/18 16:00 100.9 116 20 139/75 97 Trach Collar 6.0 28 100.9 02/18/18 12:35 T-piece 6.0 28 02/18/18 12:35 99 T-piece 6.0 28 02/18/18 12:00 98.2 94 20 107/71 98 Trach Collar 6.0 28 98.2 02/18/18 12:00 94 Intake and Output 02/18/18 02/19/18 19:00 07:00 Output Total 850 ml 800 ml Balance -850 ml -800 ml Output Urine Total 850 ml 800 ml # Bowel Movements 1 General Appearance: WD/WN HEENT: normocephalic, atraumatic Respiratory/Chest: chest wall non-tender, lungs clear Breasts: no masses Cardiovascular: normal peripheral pulses Abdomen: normal bowel sounds, soft, non tender Skin: no rash 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/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: 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 II-XII grossly normal Lymphatic: no neck adenopathy Laboratory Tests 02/18/18 16:25: Vancomycin Level Trough 12.8H Current Medications Medications (Trade) Dose Ordered Sig/Bere Route PRN Reason Start Time Stop Time Status Last Admin Dose Admin Acetaminophen (Tylenol) 650 mg Q6H PRN GT Fever/Headache/Mild Pain 02/18/18 06:30 03/20/18 06:29 02/18/18 17:40 Bisacodyl (Dulcolax) 10 mg DAILY RECTAL 02/18/18 09:00 03/17/18 08:59 02/19/18 08:46 Carvedilol (Coreg) 6.25 mg EVERY 12 HOURS GT 02/17/18 23:05 03/19/18 23:04 02/19/18 08:46 Chlorhexidine Gluconate (Jane-Hex 2%) 1 applic DAILY@1999 TOPIC 02/18/18 20:00 03/19/18 19:59 02/18/18 21:45 Dextrose (Dextrose 50%) 25 ml STAT PRN IV Hypoglycemia 02/18/18 07:15 03/17/18 07:14 Dextrose (Dextrose 50%) 50 ml STAT PRN IV Hypoglycemia 02/18/18 07:15 03/17/18 07:14 Digoxin (Lanoxin) 0.25 mg DAILY PEG 02/18/18 09:00 03/19/18 08:59 02/19/18 08:46 Famotidine (Pepcid) 20 mg Q12HR GT 02/19/18 21:00 03/17/18 08:59 Heparin Sodium (Porcine) (Heparin 5000 units/ml) 5,000 units EVERY 12 HOURS SUBQ 02/17/18 23:06 03/19/18 23:05 02/19/18 08:49 Ipratropium [place] (Atrovent) 500 mcg EVERY 2 HOURS PRN HHN Shortness of Breath 02/18/18 00:00 02/20/18 07:44 Lactulose (Cephulac) 20 gm EVERY 12 HOURS GT 02/19/18 21:00 03/17/18 08:59 Levetiracetam 1500 mg/Dextrose 110 ml @ 440 mls/hr Q12HR IV 02/18/18 20:30 03/20/18 20:29 02/19/18 10:18 Lorazepam (Ativan 2mg/ml 1ml) 1 mg Q4H PRN IV For Seizures 02/18/18 09:30 02/25/18 09:29 Magnesium Hydroxide (Mom) 30 ml DAILY PRN GT Constipation 02/18/18 09:00 03/17/18 06:59 Meropenem 1 gm/ Sodium Chloride 110 ml @ 220 mls/hr Q8HR IVPB 02/18/18 22:00 02/23/18 21:59 02/19/18 06:40 Multivitamins (Multivitamins W/ Minerals 15ml Liquid) 15 ml DAILY GT 02/19/18 09:00 03/21/18 08:59 02/19/18 09:39 Vitamin A/Vitamin D (A & D Oint) 1 applic EVERY 12 HOURS TOPIC 02/17/18 22:15 03/17/18 08:59 02/19/18 08:47 Trisha Soto MD February 19, 2018 11:32
[2018-02-19 15:36] VITALS: BP 115/69
--- NOTE | 2018-02-19 16:12 | General Progress Note ---
Assessment/Plan Assessment/Plan encephalopathy agitation ativan prn Subjective Date patient seen: February 19, 2018 Neurologic/Psychiatric: Reports: anxiety, depressed, emotional problems Allergies: Coded Allergies: PENICILLINS (Verified Allergy, Unknown, 02/14/18) Objective Last 24 Hour Vital Signs Date Time Temp Pulse Resp B/P (MAP) Pulse Ox O2 Delivery O2 Flow Rate FiO2 02/19/18 15:36 99.1 106 22 115/69 98 Trach Collar 28 99.1 02/19/18 12:56 T-piece 6.0 28 02/19/18 12:56 99 T-piece 6.0 28 02/19/18 11:31 109 02/19/18 11:28 100.0 110 20 121/75 98 Trach Collar 28 100.0 02/19/18 08:46 116 129/86 02/19/18 08:46 116 02/19/18 08:34 99 T-piece 6.0 28 02/19/18 08:34 T-piece 6.0 28 02/19/18 08:33 116 20 T-piece 6.0 28 02/19/18 08:00 99.1 112 18 129/86 100 Trach Collar 28 99.1 02/19/18 07:34 113 02/19/18 04:00 98.4 110 20 117/74 95 Trach Collar 6.0 28 98.4 02/19/18 04:00 110 02/19/18 01:12 T-piece 6.0 28 02/19/18 01:12 98 T-piece 6.0 28 02/19/18 00:00 98.1 110 20 123/77 100 Trach Collar 6.0 28 98.1 02/19/18 00:00 103 02/18/18 21:46 107 127/77 02/18/18 20:00 105 02/18/18 20:00 99.1 107 20 127/77 100 Trach Collar 6.0 28 99.1 02/18/18 19:07 T-piece 6.0 28 02/18/18 19:07 104 24 T-piece 6.0 28 02/18/18 19:07 98 T-piece 6.0 28 02/18/18 18:10 99.1 02/18/18 17:40 100.9 Intake and Output 02/18/18 02/19/18 19:00 07:00 Output Total 850 ml 800 ml Balance -850 ml -800 ml Output Urine Total 850 ml 800 ml # Bowel Movements 1 Laboratory Tests 02/18/18 16:25: Vancomycin Level Trough 12.8H Height (Feet): 5 Height (Inches): 5.00 Weight (Pounds): 184 General Appearance: no apparent distress, alert, confused, agitated Robby Beltre M.D. February 19, 2018 16:12
--- NOTE | 2018-02-19 16:16 | Nephrology Progress Note ---
Assessment/Plan Problem List: (1) Acute renal failure (ARF) (2) Respiratory failure (3) Seizure disorder (4) Pneumonia (5) Urinary retention Assessment acuter renal failure- resolved Urinary retention Dehydration Sepsis- Pneumonia and UTI, High Lactate Chronic respiratory failure- At Fib Sz disorder- Hydrocephalus Anemia Plan no labs today K as needed stop Hydrate- more dig higher dose of coreg IV Iron Antibiotics- Baxter- Monitor renal parameters Avoid Nephrotoxics per orders Subjective ROS Limited/Unobtainable: Yes Objective Objective Last 24 Hour Vital Signs Date Time Temp Pulse Resp B/P (MAP) Pulse Ox O2 Delivery O2 Flow Rate FiO2 02/19/18 15:36 99.1 106 22 115/69 98 Trach Collar 28 99.1 02/19/18 12:56 T-piece 6.0 28 02/19/18 12:56 99 T-piece 6.0 28 02/19/18 11:31 109 02/19/18 11:28 100.0 110 20 121/75 98 Trach Collar 28 100.0 02/19/18 08:46 116 129/86 02/19/18 08:46 116 02/19/18 08:34 99 T-piece 6.0 28 02/19/18 08:34 T-piece 6.0 28 02/19/18 08:33 116 20 T-piece 6.0 28 02/19/18 08:00 99.1 112 18 129/86 100 Trach Collar 28 99.1 02/19/18 07:34 113 02/19/18 04:00 98.4 110 20 117/74 95 Trach Collar 6.0 28 98.4 02/19/18 04:00 110 02/19/18 01:12 T-piece 6.0 28 02/19/18 01:12 98 T-piece 6.0 28 02/19/18 00:00 98.1 110 20 123/77 100 Trach Collar 6.0 28 98.1 02/19/18 00:00 103 02/18/18 21:46 107 127/77 02/18/18 20:00 105 02/18/18 20:00 99.1 107 20 127/77 100 Trach Collar 6.0 28 99.1 02/18/18 19:07 T-piece 6.0 28 02/18/18 19:07 104 24 T-piece 6.0 28 02/18/18 19:07 98 T-piece 6.0 28 02/18/18 18:10 99.1 02/18/18 17:40 100.9 Intake and Output 02/18/18 02/19/18 19:00 07:00 Output Total 850 ml 800 ml Balance -850 ml -800 ml Output Urine Total 850 ml 800 ml # Bowel Movements 1 Laboratory Tests 02/18/18 16:25: Vancomycin Level Trough 12.8H Height (Feet): 5 Height (Inches): 5.00 Weight (Pounds): 184 General Appearance: no apparent distress Respiratory/Chest: decreased breath sounds Abdomen: distended Objective no change PATRICIO KNUTSON February 19, 2018 16:16
--- NOTE | 2018-02-19 16:28 | Cardiac Electrophysiology PN ---
Assessment/Plan Assessment/Plan 1. Sinus tachycardia with the heart rate up to 140 beats per minute. Due to sepsis and anemia. No evidence of atrial fibrillation. Continue digoxin and Coreg 2. Hypertension, on Coreg 3.125 mg b.i.d. 3. Nonspecific ST-T wave abnormalities. Continue Coreg. 4. Respiratory failure, status post tracheostomy. 5. Dysphagia, status post PEG 6. Seizure disorder. EEG pending 7. Hydrocephalus. LUIS RN Subjective Subjective Nonverbal. On T tube via trach.No Seizure. EEG pending Objective Last 24 Hour Vital Signs Date Time Temp Pulse Resp B/P (MAP) Pulse Ox O2 Delivery O2 Flow Rate FiO2 02/19/18 15:36 99.1 106 22 115/69 98 Trach Collar 28 99.1 02/19/18 12:56 T-piece 6.0 28 02/19/18 12:56 99 T-piece 6.0 28 02/19/18 11:31 109 02/19/18 11:28 100.0 110 20 121/75 98 Trach Collar 28 100.0 02/19/18 08:46 116 129/86 02/19/18 08:46 116 02/19/18 08:34 99 T-piece 6.0 28 02/19/18 08:34 T-piece 6.0 28 02/19/18 08:33 116 20 T-piece 6.0 28 02/19/18 08:00 99.1 112 18 129/86 100 Trach Collar 28 99.1 02/19/18 07:34 113 02/19/18 04:00 98.4 110 20 117/74 95 Trach Collar 6.0 28 98.4 02/19/18 04:00 110 02/19/18 01:12 T-piece 6.0 28 02/19/18 01:12 98 T-piece 6.0 28 02/19/18 00:00 98.1 110 20 123/77 100 Trach Collar 6.0 28 98.1 02/19/18 00:00 103 02/18/18 21:46 107 127/77 02/18/18 20:00 105 02/18/18 20:00 99.1 107 20 127/77 100 Trach Collar 6.0 28 99.1 02/18/18 19:07 T-piece 6.0 28 02/18/18 19:07 104 24 T-piece 6.0 28 02/18/18 19:07 98 T-piece 6.0 28 02/18/18 18:10 99.1 02/18/18 17:40 100.9 Intake and Output 02/18/18 02/19/18 19:00 07:00 Output Total 850 ml 800 ml Balance -850 ml -800 ml Output Urine Total 850 ml 800 ml # Bowel Movements 1 Objective HEAD AND NECK: No JVD. Status post tracheostomy. LUNGS: Coarse rhonchi. CARDIOVASCULAR: Tachycardic S1 and S2 with no gallop. ABDOMEN: Status post G-tube. EXTREMITIES: 1+ pitting edema. Dat Oh MD February 19, 2018 16:28
[2018-02-19 20:00] VITALS: BP 108/64
[2018-02-19] MEDS: Dyna-Hex 2% Top Sol 2oz TOPIC SCH (20:55)
--- NOTE | 2018-02-19 20:59 | Neurology Progress Note ---
Interim History Interim History Interim History Ms. Hair continues to be unresponsive. She open her eyes on painful stimulation. She had a right gaze preference. She continues to have jerking movements of the right upper extremity. She has had no further generalized seizures. Review of Systems Neuro Review of Systems Unable to obtain. Objective Physical Exam Last Vital Signs Date Time Temp Pulse Resp B/P (MAP) Pulse Ox O2 Delivery O2 Flow Rate FiO2 02/19/18 19:44 T-piece 6.0 28 02/19/18 19:44 98 02/19/18 19:43 114 20 02/19/18 15:36 99.1 115/69 99.1 Neurologic Exam Objective PHYSICAL EXAMINATION: GENERAL: She is a well-developed, well-nourished, slightly obese lady , lying in bed, in no acute distress, exhibiting a right gaze preference and episodic right upper extremity jerky movements. HEAD: Normocephalic and atraumatic. EENT: Examination benign except for a right gaze preference. NECK: No neck rigidity was observed. NEUROLOGICAL EXAMINATION: MENTAL STATUS EXAMINATION: When stimulated she opened her eyes. She however was unresponsive even to deep pain otherwise. Further mental status testing was impossible. SPEECH: Could not be tested. LANGUAGE: Could not be tested. CRANIAL NERVE EXAMINATION: II: She did not blink to threat. III, IV & : The external ocular movements were present on oculocephalic maneuvers, but she did have a right gaze preference. The pupils were 3 mm in diameter and reactive sluggishly to light. V & VII: The corneal reflexes were subdued bilaterally. VIII: She did not respond to sound and had no nystagmus. IX & X: The gag reflex was present, but subdued. XI: The sternocleidomastoids and trapezii did not function. XII: Could not be tested adequately. MOTOR SYSTEM: The tone was increased in all four extremities with a significant degree of spasticity. Examination of muscle mass revealed wasting of the small hand and foot muscles. Examination of power was impossible to perform because even on applying deep painful stimuli, no movements were seen. SENSORY EXAMINATION: She did not respond even to deep pain. REFLEXES: 0 at the biceps, triceps, brachioradialis, knees, and ankles. The plantar responses were extensor bilaterally. COORDINATION, STANCE & GAIT: Could not be tested. Impression/Recommendations Diagnostic Impression 1. Ms Dianne Hair is a 47-year-old, lady, of unknown handedness, who does have a past history of hypertension, anoxic ischemic encephalopathy, hydrocephalus, seizure disorder, and chronic respiratory failure, who was admitted on 02/15/2018 for urinary sepsis. She has had constant right upper extremity jerking movements ever since her admission, but on the morning of 02/18 was noted to have a generalized tonic-clonic seizure. 2. She continues to be unresponsive. She open her eyes on painful stimulation. She has a right gaze preference. She continues to have jerking movements of the right upper extremity. She has had no further generalized seizures. 3. On neurological examination at this time, she is unresponsive even to deep painful stimuli. She does have right gaze preference. She also has constant jerking movements of the right upper extremity. Her deep tendon reflexes are absent and her plantar responses are extensor bilaterally. 4. The CT of the brain revealed severe cortical and subcortical encephalomalacia with hydrocephalus ex-vacuo. No acute pathology was seen 5. The patient's history and neurological examination are most compatible with a severe encephalopathy, which by report is of an anoxic ischemic type. She also has a history of seizures and most probably had a breakthrough generalized tonic-clonic seizure this morning. She, in addition, was exhibiting some right upper extremity jerking movements, which may either represent segmental myoclonus versus partial seizures. Recommendations 1. Continue present management. 2. Await EEG to evaluate the patient for the type of seizure disorder. 3. Continue Keppra 1.5 grams q.12 hours intravenously. 4. Observe closely. Chinmay Miranda M.D., M.S.P.H. CHINMAY MIRANAD February 19, 2018 20:59
--- NOTE | 2018-02-19 22:31 | Internal Med Progress Note ---
Subjective Physician Name Jak Damon Attending Physician Jak Damon MD Current Medications Medications (Trade) Dose Ordered Sig/Bere Route PRN Reason Start Time Stop Time Status Last Admin Dose Admin Acetaminophen (Tylenol) 650 mg Q6H PRN GT Fever/Headache/Mild Pain 02/18/18 06:30 03/20/18 06:29 02/18/18 17:40 Bisacodyl (Dulcolax) 10 mg DAILY RECTAL 02/18/18 09:00 03/17/18 08:59 02/19/18 08:46 Carvedilol (Coreg) 6.25 mg EVERY 12 HOURS GT 02/17/18 23:05 03/19/18 23:04 02/19/18 20:56 Chlorhexidine Gluconate (Jane-Hex 2%) 1 applic DAILY@2000 TOPIC 02/18/18 20:00 03/19/18 19:59 02/19/18 20:55 Dextrose (Dextrose 50%) 25 ml STAT PRN IV Hypoglycemia 02/18/18 07:15 03/17/18 07:14 Dextrose (Dextrose 50%) 50 ml STAT PRN IV Hypoglycemia 02/18/18 07:15 03/17/18 07:14 Digoxin (Lanoxin) 0.25 mg DAILY PEG 02/18/18 09:00 03/19/18 08:59 02/19/18 08:46 Famotidine (Pepcid) 20 mg Q12HR GT 02/19/18 21:00 03/17/18 08:59 02/19/18 20:56 Heparin Sodium (Porcine) (Heparin 5000 units/ml) 5,000 units EVERY 12 HOURS SUBQ 02/17/18 23:06 03/19/18 23:05 02/19/18 20:58 Ipratropium [place] (Atrovent) 500 mcg EVERY 2 HOURS PRN HHN Shortness of Breath 02/18/18 00:00 02/20/18 07:44 Lactulose (Cephulac) 20 gm EVERY 12 HOURS GT 02/19/18 21:00 03/17/18 08:59 02/19/18 20:55 Levetiracetam 1500 mg/Dextrose 110 ml @ 440 mls/hr Q12HR IV 02/18/18 20:30 03/20/18 20:29 02/19/18 20:55 Lorazepam (Ativan 2mg/ml 1ml) 1 mg Q4H PRN IV For Seizures 02/18/18 09:30 02/25/18 09:29 Magnesium Hydroxide (Mom) 30 ml DAILY PRN GT Constipation 02/18/18 09:00 03/17/18 06:59 Meropenem 1 gm/ Sodium Chloride 110 ml @ 220 mls/hr Q8HR IVPB 02/18/18 22:00 02/23/18 21:59 02/19/18 20:56 Multivitamins (Multivitamins W/ Minerals 15ml Liquid) 15 ml DAILY GT 02/19/18 09:00 03/21/18 08:59 02/19/18 09:39 Vitamin A/Vitamin D (A & D Oint) 1 applic EVERY 12 HOURS TOPIC 02/17/18 22:15 03/17/18 08:59 02/19/18 20:57 Allergies: Coded Allergies: PENICILLINS (Verified Allergy, Unknown, 02/14/18) Subjective on Trach collar, open eyes with deep stimuli, Objective Last Vital Signs Date Time Temp Pulse Resp B/P (MAP) Pulse Ox O2 Delivery O2 Flow Rate FiO2 02/19/18 20:56 114 115/69 02/19/18 19:44 T-piece 6.0 28 02/19/18 19:44 98 02/19/18 19:43 20 02/19/18 15:36 99.1 99.1 Intake and Output 02/18/18 02/19/18 19:00 07:00 Output Total 850 ml 800 ml Balance -850 ml -800 ml Output Urine Total 850 ml 800 ml # Bowel Movements 1 Objective General: No acute distress, responsive with open eyes upon deep stimuli. HEENT: NCAT, sclera anicteric, PERRL, Neck: Supple, Trach site intact. Lungs: Fair inspiratory effort, decrease breath sound on bases, no Wheeze or Rales. Heart: Regular rate and rhythm, normal S1/S2, no murmurs, distant heart sound. Abdomen: soft, nontender, nondistended. Normoactive bowel sounds, Obesity, PEG site intact. : Baxter cath. Extremities: No Cyanosis , clubbing, +1 LE's edema. Neuro: not verbal , unable to F/U with commands. Contracted RUE, unable to move LE's. right upper extremity jerking movements. Skin: warm, no rashes Assessment/Plan Assessment/Plan Fever and Leukocytosis possible Sepsis / bacteremia, UTI Chronic encephalopathy/anoxic brain injury. History of vent-dependent respiratory failure. Status post PEG and trach. Hypertension. Hydrocephalus. Generalized tonic-clonic seizure Plan: Abx: Meropenem F/U with Labs and cultures Tube feeding @ 50 cc/hr F/U with ID recommendations. DC Planning to SNF soon On Keppra IV Neurology consult with Jak Grewal MD February 19, 2018 22:31
[2018-02-20] VITALS: BP 107/60
[2018-02-20 04:00] VITALS: BP 115/67
[2018-02-20] MEDS: Meropenem 1 GM in NS 110 ML IVPB SCH (05:19)
[2018-02-20 05:43] LABS: BASOPHILS % (AUTO) 0.8 % (0.0-2.0); EOSINOPHILS % (AUTO) 3.3 % (0.0-3.0); HEMATOCRIT 26.3 % (37.0-47.0); HEMOGLOBIN 8.9 G/DL (12.0-16.0); LYMPHOCYTES % (AUTO) 17.7 % (20.0-45.0); MEAN CORPUSCULAR VOLUME 92 FL (80-99); MONOCYTES % (AUTO) 5.4 % (1.0-10.0); NEUTROPHILS % (AUTO) 72.9 % (45.0-75.0); PLATELET COUNT 247 K/UL (150-450); RED BLOOD COUNT 2.88 M/UL (4.20-5.40); RED CELL DISTRIBUTION WIDTH 12.8 % (11.6-14.8); WHITE BLOOD COUNT 16.1 K/UL (4.8-10.8)
[2018-02-20 06:06] LABS: ALANINE AMINOTRANSFERASE 100 U/L (12-78); ALBUMIN 2.8 G/DL (3.4-5.0); ALBUMIN/GLOBULIN RATIO 0.7 (1.0-2.7); ALKALINE PHOSPHATASE 71 U/L (46-116); ANION GAP 9 mmol/L (5-15); ASPARTATE AMINO TRANSFERASE 311 U/L (15-37); BILIRUBIN,TOTAL 0.5 MG/DL (0.2-1.0); BLOOD UREA NITROGEN 13 mg/dL (7-18); CALCIUM 8.7 MG/DL (8.5-10.1); CARBON DIOXIDE 28 MMOL/L (21-32); CHLORIDE 100 MMOL/L (98-107); CREATININE 0.7 MG/DL (0.55-1.30); PHOSPHORUS 3.3 MG/DL (2.5-4.9); POTASSIUM 3.7 MMOL/L (3.5-5.1); SODIUM 137 MMOL/L (136-145)
[2018-02-20 08:00] VITALS: BP 118/68
[2018-02-20] MEDS: Heparin 5000 units/ml inj SUBQ SCH (09:27)
[2018-02-20 09:28] VITALS: BP 118/68
[2018-02-20] MEDS: Lactulose 20gm/30ml UDC GT SCH (09:28)
[2018-02-20] MEDS: Carvedilol 6.25mg Tab GT SCH (09:28)
[2018-02-20] MEDS: Multivitamins W/Minerals 15 ML UDC GT SCH (09:29)
[2018-02-20] MEDS: levETIRAcetam 1,500 MG in D5W 95 ML IV SCH (09:29)
[2018-02-20] MEDS: Vitamin A&D Oint 2oz Tube TOPIC SCH (09:34)
--- NOTE | 2018-02-20 11:33 | Infectious Diseases Prog Note ---
Assessment/Plan Assessment/Plan ASSESSMENT: The patient is a 47-year-old female with: Fever, .SP Leukocytosis, mild Sepsis, SP Doubt pneumonia ScX: Serratia and PSA CXR : bibasilar atelectasis. Probable UTI 02/15 Ucx : 40K ESBL P. Mirabilis , Providencia , repeat 02/15 Ucx : VRE and Mixed growth CT: Trace pleural effusion. Left greater than right hydronephrosis and hydroureter/no urinary stone. Cholelithiasis. ?Generalized tonic-clonic seizure ( before starting Merrem ) Chronic encephalopathy/anoxic brain injury. History of vent-dependent respiratory failure. Status post PEG and trach. Hypertension. Seizure disorder. Hydrocephalus. PLAN: continue the patient IV Merrem d# 3 / , upon DC will change to Invanz to complete the course ( may consider changing AB Rx to Amikacin if Neuro thinks that this contributes to SZ,and dont get controlled by meds ) 02/18 vancomycin and cefepime d# 3 Monitor CBC. Monitor BMP. Monitor cultures (blood,) Monitor chest x-ray.tract Neuro following )( EEG and CT ) Subjective Allergies: Coded Allergies: PENICILLINS (Verified Allergy, Unknown, 02/14/18) Subjective comfortable Objective Vital Signs Last 24 Hour Vital Signs Date Time Temp Pulse Resp B/P (MAP) Pulse Ox O2 Delivery O2 Flow Rate FiO2 02/20/18 09:30 109 02/20/18 09:28 109 118/68 02/20/18 08:20 T-piece 6.0 28 02/20/18 08:20 109 20 T-piece 6.0 28 02/20/18 08:20 99 T-piece 6.0 28 02/20/18 08:00 99.0 110 20 118/68 99 Trach Collar 28 99.0 02/20/18 04:00 100.0 102 20 115/67 96 Trach Collar 28 100.0 02/20/18 04:00 104 02/20/18 01:15 98 T-piece 6.0 28 02/20/18 01:15 T-piece 6.0 28 02/20/18 00:00 99.7 109 20 107/60 98 Trach Collar 28 99.7 02/20/18 00:00 106 02/19/18 20:56 114 115/69 02/19/18 20:00 111 02/19/18 20:00 99.7 109 20 108/64 98 Trach Collar 28 99.7 02/19/18 19:44 T-piece 6.0 28 02/19/18 19:44 98 T-piece 6.0 28 02/19/18 19:43 114 20 T-piece 6.0 28 02/19/18 17:00 91 02/19/18 15:36 99.1 106 22 115/69 98 Trach Collar 28 99.1 02/19/18 12:56 T-piece 6.0 28 02/19/18 12:56 99 T-piece 6.0 28 02/19/18 11:31 109 Height (Feet): 5 Height (Inches): 5.00 Weight (Pounds): 184 HEENT: mucous membranes moist Respiratory/Chest: no respiratory distress Cardiovascular: regularly irregular Abdomen: no organomegaly Laboratory Tests Test 02/20/18 04:30 White Blood Count 16.1 K/UL (4.8-10.8) H Red Blood Count 2.88 M/UL (4.20-5.40) L Hemoglobin 8.9 G/DL (12.0-16.0) L Hematocrit 26.3 % (37.0-47.0) L Mean Corpuscular Volume 92 FL (80-99) Mean Corpuscular Hemoglobin 30.8 PG (27.0-31.0) Mean Corpuscular Hemoglobin Concent 33.7 G/DL (32.0-36.0) Red Cell Distribution Width 12.8 % (11.6-14.8) Platelet Count 247 K/UL (150-450) Mean Platelet Volume 8.0 FL (6.5-10.1) Neutrophils (%) (Auto) 72.9 % (45.0-75.0) Lymphocytes (%) (Auto) 17.7 % (20.0-45.0) L Monocytes (%) (Auto) 5.4 % (1.0-10.0) Eosinophils (%) (Auto) 3.3 % (0.0-3.0) H Basophils (%) (Auto) 0.8 % (0.0-2.0) Sodium Level 137 MMOL/L (136-145) Potassium Level 3.7 MMOL/L (3.5-5.1) Chloride Level 100 MMOL/L (98-107) Carbon Dioxide Level 28 MMOL/L (21-32) Anion Gap 9 mmol/L (5-15) Blood Urea Nitrogen 13 mg/dL (7-18) Creatinine 0.7 MG/DL (0.55-1.30) Estimat Glomerular Filtration Rate > 60 mL/min (>60) Glucose Level 120 MG/DL (74-106) H Calcium Level 8.7 MG/DL (8.5-10.1) Phosphorus Level 3.3 MG/DL (2.5-4.9) Magnesium Level 1.9 MG/DL (1.8-2.4) Total Bilirubin 0.5 MG/DL (0.2-1.0) Aspartate Amino Transf (AST/SGOT) 311 U/L (15-37) H Alanine Aminotransferase (ALT/SGPT) 100 U/L (12-78) H Alkaline Phosphatase 71 U/L (46-116) Total Protein 7.0 G/DL (6.4-8.2) Albumin 2.8 G/DL (3.4-5.0) L Globulin 4.2 g/dL Albumin/Globulin Ratio 0.7 (1.0-2.7) L Current Medications Medications (Trade) Dose Ordered Sig/Bere Route PRN Reason Start Time Stop Time Status Last Admin Dose Admin Acetaminophen (Tylenol) 650 mg Q6H PRN GT Fever/Headache/Mild Pain 02/18/18 06:30 03/20/18 06:29 02/18/18 17:40 Bisacodyl (Dulcolax) 10 mg DAILY RECTAL 02/18/18 09:00 03/17/18 08:59 02/19/18 08:46 Carvedilol (Coreg) 6.25 mg EVERY 12 HOURS GT 02/17/18 23:05 03/19/18 23:04 02/20/18 09:28 Chlorhexidine Gluconate (Jane-Hex 2%) 1 applic DAILY@1999 TOPIC 02/18/18 20:00 03/19/18 19:59 02/19/18 20:55 Dextrose (Dextrose 50%) 25 ml STAT PRN IV Hypoglycemia 02/18/18 07:15 03/17/18 07:14 Dextrose (Dextrose 50%) 50 ml STAT PRN IV Hypoglycemia 02/18/18 07:15 03/17/18 07:14 Digoxin (Lanoxin) 0.25 mg DAILY PEG 02/18/18 09:00 03/19/18 08:59 02/20/18 09:30 Famotidine (Pepcid) 20 mg Q12HR GT 02/19/18 21:00 03/17/18 08:59 02/20/18 09:29 Heparin Sodium (Porcine) (Heparin 5000 units/ml) 5,000 units EVERY 12 HOURS SUBQ 02/17/18 23:06 03/19/18 23:05 02/20/18 09:27 Lactulose (Cephulac) 20 gm EVERY 12 HOURS GT 02/19/18 21:00 03/17/18 08:59 02/20/18 09:28 Levetiracetam 1500 mg/Dextrose 110 ml @ 440 mls/hr Q12HR IV 02/18/18 20:30 03/20/18 20:29 02/20/18 09:29 Lorazepam (Ativan 2mg/ml 1ml) 1 mg Q4H PRN IV For Seizures 02/18/18 09:30 02/25/18 09:29 Magnesium Hydroxide (Mom) 30 ml DAILY PRN GT Constipation 02/18/18 09:00 03/17/18 06:59 Meropenem 1 gm/ Sodium Chloride 110 ml @ 220 mls/hr Q8HR IVPB 02/18/18 22:00 02/23/18 21:59 02/20/18 05:19 Multivitamins (Multivitamins W/ Minerals 15ml Liquid) 15 ml DAILY GT 02/19/18 09:00 03/21/18 08:59 02/20/18 09:29 Vitamin A/Vitamin D (A & D Oint) 1 applic EVERY 12 HOURS TOPIC 02/17/18 22:15 03/17/18 08:59 02/20/18 09:34 Bobby Aquino MD February 20, 2018 11:33
[2018-02-20] MEDS ORDERED: NS 275ml ONE (12:22)
[2018-02-20] MEDS ORDERED: Tubing IV Secondary IV ONE (12:22)
[2018-02-20] MEDS ORDERED: Sterile Water Irrig 1000ml IRRIG ONE (12:22)
--- NOTE | 2018-02-20 13:36 | General Progress Note ---
Assessment/Plan Assessment/Plan 1. Anemia likely secondary to anemia of iron deficiency due to low ferritin and elevated tibc is mixed picture --> have given iv iron and ferrous sulfate po doses as well --> hgb > 7 is the goal 2. Anemia due to hemodilution. Continue closely monitor fluid status. --> no evidence of hemolysis, hgb goal is >7 3. Leukocytosis secondary to underlying infection. UTI --> monitor for improvement, appreciate id recs 4. Potential right hydronephrosis, urinary infection. 5. Potential ileus. currently is improved 6. Chronic respiratory failure, status post tracheostomy. 7. HTN, systolic blood pressure goal less than 140. 8. Dysphagia status post PEG tube. Subjective Constitutional: Denies: no symptoms, chills, diaphoresis, fever, malaise, weakness, other HEENT: Denies: no symptoms, eye pain, blurred vision, tearing, double vision, ear pain, ear discharge, nose pain, nose congestion, throat pain, throat swelling, mouth pain, mouth swelling, other Cardiovascular: Denies: no symptoms, chest pain, edema, irregular heart rate, lightheadedness, palpitations, syncope, other Respiratory: Denies: no symptoms, cough, orthopnea, shortness of breath, SOB with excertion, SOB at rest, sputum, stridor, wheezing, other Gastrointestinal/Abdominal: Denies: no symptoms, abdomen distended, abdominal pain, black stools, tarry stools, blood in stool, constipated, diarrhea, difficulty swallowing, nausea, poor appetite, poor fluid intake, rectal bleeding , vomiting, other Genitourinary: Denies: no symptoms, burning, discharge, frequency, flank pain, hematuria, incontinence, pain, urgency, other Neurologic/Psychiatric: Denies: no symptoms, anxiety, depressed, emotional problems, headache, numbness, paresthesia, pre-existing deficit, seizure, tingling, tremors, weakness, other Endocrine: Denies: no symptoms, excessive sweating, flushing, intolerance to cold, intolerance to heat, increased hunger, increased thirst, increased urine, unexplained weight gain, unexplained weight loss, other Hematologic/Lymphatic: Denies: no symptoms, anemia, easy bleeding, easy bruising, other Allergies: Coded Allergies: PENICILLINS (Verified Allergy, Unknown, 02/14/18) Subjective on iv iron, no bleeding noted Objective Last 24 Hour Vital Signs Date Time Temp Pulse Resp B/P (MAP) Pulse Ox O2 Delivery O2 Flow Rate FiO2 02/20/18 12:00 102 02/20/18 09:30 109 02/20/18 09:28 109 118/68 02/20/18 08:20 T-piece 6.0 28 02/20/18 08:20 109 20 T-piece 6.0 28 02/20/18 08:20 99 T-piece 6.0 28 02/20/18 08:00 101 02/20/18 08:00 99.0 110 20 118/68 99 Trach Collar 28 99.0 02/20/18 04:00 100.0 102 20 115/67 96 Trach Collar 28 100.0 02/20/18 04:00 104 02/20/18 01:15 98 T-piece 6.0 28 02/20/18 01:15 T-piece 6.0 28 02/20/18 00:00 99.7 109 20 107/60 98 Trach Collar 28 99.7 02/20/18 00:00 106 02/19/18 20:56 114 115/69 02/19/18 20:00 111 02/19/18 20:00 99.7 109 20 108/64 98 Trach Collar 28 99.7 02/19/18 19:44 T-piece 6.0 28 02/19/18 19:44 98 T-piece 6.0 28 02/19/18 19:43 114 20 T-piece 6.0 28 02/19/18 17:00 91 02/19/18 15:36 99.1 106 22 115/69 98 Trach Collar 28 99.1 Intake and Output 02/19/18 02/20/18 19:00 07:00 Intake Total 870 ml Output Total 1050 ml 900 ml Balance -180 ml -900 ml Intake Free Water 100 ml IV Total 110 ml Tube Feeding 600 ml Other 60 ml Output Urine Total 1050 ml 900 ml # Bowel Movements 1 Laboratory Tests 02/20/18 04:30: White Blood Count 16.1H, Red Blood Count 2.88L, Hemoglobin 8.9L, Hematocrit 26.3L, Mean Corpuscular Volume 92, Mean Corpuscular Hemoglobin 30.8, Mean Corpuscular Hemoglobin Concent 33.7, Red Cell Distribution Width 12.8, Platelet Count 247, Mean Platelet Volume 8.0, Neutrophils (%) (Auto) 72.9, Lymphocytes (% ) (Auto) 17.7L, Monocytes (%) (Auto) 5.4, Eosinophils (%) (Auto) 3.3H, Basophils (%) (Auto) 0.8, Sodium Level 137, Potassium Level 3.7, Chloride Level 100, Carbon Dioxide Level 28, Anion Gap 9, Blood Urea Nitrogen 13, Creatinine 0.7, Estimat Glomerular Filtration Rate > 60, Glucose Level 120H, Calcium Level 8.7, Phosphorus Level 3.3, Magnesium Level 1.9, Total Bilirubin 0.5, Aspartate Amino Transf (AST/SGOT) 311H, Alanine Aminotransferase (ALT/SGPT) 100H, Alkaline Phosphatase 71, Total Protein 7.0, Albumin 2.8L, Globulin 4.2, Albumin/ Globulin Ratio 0.7L Height (Feet): 5 Height (Inches): 5.00 Weight (Pounds): 184 General Appearance: alert EENT: pharynx normal Neck: normal inspection Cardiovascular: normal rate Respiratory/Chest: normal breath sounds Abdomen: soft Extremities: normal range of motion Edema: 1+ Arm (L), 1+ Arm (R), 1+ Leg (L), 1+ Leg (R) Objective s/p peg and trach Aaron Schmidt MD February 20, 2018 13:36
--- NOTE | 2018-02-20 14:52 | General Progress Note ---
Assessment/Plan Status: stable Assessment/Plan encephalopathy agitation ativan prn Subjective Date patient seen: February 20, 2018 Neurologic/Psychiatric: Reports: anxiety, depressed, emotional problems Allergies: Coded Allergies: PENICILLINS (Verified Allergy, Unknown, 02/14/18) Objective Last 24 Hour Vital Signs Date Time Temp Pulse Resp B/P (MAP) Pulse Ox O2 Delivery O2 Flow Rate FiO2 02/20/18 12:00 102 02/20/18 09:30 109 02/20/18 09:28 109 118/68 02/20/18 08:20 T-piece 6.0 28 02/20/18 08:20 109 20 T-piece 6.0 28 02/20/18 08:20 99 T-piece 6.0 28 02/20/18 08:00 101 02/20/18 08:00 99.0 110 20 118/68 99 Trach Collar 28 99.0 02/20/18 04:00 100.0 102 20 115/67 96 Trach Collar 28 100.0 02/20/18 04:00 104 02/20/18 01:15 98 T-piece 6.0 28 02/20/18 01:15 T-piece 6.0 28 02/20/18 00:00 99.7 109 20 107/60 98 Trach Collar 28 99.7 02/20/18 00:00 106 02/19/18 20:56 114 115/69 02/19/18 20:00 111 02/19/18 20:00 99.7 109 20 108/64 98 Trach Collar 28 99.7 02/19/18 19:44 T-piece 6.0 28 02/19/18 19:44 98 T-piece 6.0 28 02/19/18 19:43 114 20 T-piece 6.0 28 02/19/18 17:00 91 02/19/18 15:36 99.1 106 22 115/69 98 Trach Collar 28 99.1 Intake and Output 02/19/18 02/20/18 19:00 07:00 Intake Total 870 ml Output Total 1050 ml 900 ml Balance -180 ml -900 ml Intake Free Water 100 ml IV Total 110 ml Tube Feeding 600 ml Other 60 ml Output Urine Total 1050 ml 900 ml # Bowel Movements 1 Laboratory Tests 02/20/18 04:30: White Blood Count 16.1H, Red Blood Count 2.88L, Hemoglobin 8.9L, Hematocrit 26.3L, Mean Corpuscular Volume 92, Mean Corpuscular Hemoglobin 30.8, Mean Corpuscular Hemoglobin Concent 33.7, Red Cell Distribution Width 12.8, Platelet Count 247, Mean Platelet Volume 8.0, Neutrophils (%) (Auto) 72.9, Lymphocytes (% ) (Auto) 17.7L, Monocytes (%) (Auto) 5.4, Eosinophils (%) (Auto) 3.3H, Basophils (%) (Auto) 0.8, Sodium Level 137, Potassium Level 3.7, Chloride Level 100, Carbon Dioxide Level 28, Anion Gap 9, Blood Urea Nitrogen 13, Creatinine 0.7, Estimat Glomerular Filtration Rate > 60, Glucose Level 120H, Calcium Level 8.7, Phosphorus Level 3.3, Magnesium Level 1.9, Total Bilirubin 0.5, Aspartate Amino Transf (AST/SGOT) 311H, Alanine Aminotransferase (ALT/SGPT) 100H, Alkaline Phosphatase 71, Total Protein 7.0, Albumin 2.8L, Globulin 4.2, Albumin/ Globulin Ratio 0.7L Height (Feet): 5 Height (Inches): 5.00 Weight (Pounds): 184 General Appearance: no apparent distress, alert, confused Robby Beltre M.D. February 20, 2018 14:52
--- NOTE | 2018-02-20 15:13 | Nephrology Progress Note ---
Assessment/Plan Problem List: (1) Acute renal failure (ARF) (2) Respiratory failure (3) Seizure disorder (4) Pneumonia (5) Urinary retention Assessment WBCs rising acuter renal failure- resolved Urinary retention Dehydration Sepsis- Pneumonia and UTI, High Lactate Chronic respiratory failure- At Fib Sz disorder- Hydrocephalus Anemia Plan simeon for rising WBCs? K as needed stop Hydrate- more dig higher dose of coreg IV Iron Antibiotics- Baxter- Monitor renal parameters Avoid Nephrotoxics per orders Subjective ROS Limited/Unobtainable: Yes Interval Events/Complaints seen at 9 am Objective Objective Last 24 Hour Vital Signs Date Time Temp Pulse Resp B/P (MAP) Pulse Ox O2 Delivery O2 Flow Rate FiO2 02/20/18 12:00 102 02/20/18 09:30 109 02/20/18 09:28 109 118/68 02/20/18 08:20 T-piece 6.0 28 02/20/18 08:20 109 20 T-piece 6.0 28 02/20/18 08:20 99 T-piece 6.0 28 02/20/18 08:00 101 02/20/18 08:00 99.0 110 20 118/68 99 Trach Collar 28 99.0 02/20/18 04:00 100.0 102 20 115/67 96 Trach Collar 28 100.0 02/20/18 04:00 104 02/20/18 01:15 98 T-piece 6.0 28 02/20/18 01:15 T-piece 6.0 28 02/20/18 00:00 99.7 109 20 107/60 98 Trach Collar 28 99.7 02/20/18 00:00 106 02/19/18 20:56 114 115/69 02/19/18 20:00 111 02/19/18 20:00 99.7 109 20 108/64 98 Trach Collar 28 99.7 02/19/18 19:44 T-piece 6.0 28 02/19/18 19:44 98 T-piece 6.0 28 02/19/18 19:43 114 20 T-piece 6.0 28 02/19/18 17:00 91 02/19/18 15:36 99.1 106 22 115/69 98 Trach Collar 28 99.1 Intake and Output 02/19/18 02/20/18 19:00 07:00 Intake Total 870 ml Output Total 1050 ml 900 ml Balance -180 ml -900 ml Intake Free Water 100 ml IV Total 110 ml Tube Feeding 600 ml Other 60 ml Output Urine Total 1050 ml 900 ml # Bowel Movements 1 Laboratory Tests 02/20/18 04:30: White Blood Count 16.1H, Red Blood Count 2.88L, Hemoglobin 8.9L, Hematocrit 26.3L, Mean Corpuscular Volume 92, Mean Corpuscular Hemoglobin 30.8, Mean Corpuscular Hemoglobin Concent 33.7, Red Cell Distribution Width 12.8, Platelet Count 247, Mean Platelet Volume 8.0, Neutrophils (%) (Auto) 72.9, Lymphocytes (% ) (Auto) 17.7L, Monocytes (%) (Auto) 5.4, Eosinophils (%) (Auto) 3.3H, Basophils (%) (Auto) 0.8, Sodium Level 137, Potassium Level 3.7, Chloride Level 100, Carbon Dioxide Level 28, Anion Gap 9, Blood Urea Nitrogen 13, Creatinine 0.7, Estimat Glomerular Filtration Rate > 60, Glucose Level 120H, Calcium Level 8.7, Phosphorus Level 3.3, Magnesium Level 1.9, Total Bilirubin 0.5, Aspartate Amino Transf (AST/SGOT) 311H, Alanine Aminotransferase (ALT/SGPT) 100H, Alkaline Phosphatase 71, Total Protein 7.0, Albumin 2.8L, Globulin 4.2, Albumin/ Globulin Ratio 0.7L Height (Feet): 5 Height (Inches): 5.00 Weight (Pounds): 184 General Appearance: no apparent distress Cardiovascular: tachycardia Respiratory/Chest: decreased breath sounds Abdomen: distended Objective no change PATRICIO KNUTSON February 20, 2018 15:13
--- NOTE | 2018-02-20 18:01 | Electroencephalogram ---
DATE OF PROCEDURE: 02/19/2018 REQUESTING PHYSICIAN: Jak Damon M.D. HISTORY: This EEG was performed on a 47-year-old lady with a history of cardiopulmonary arrest followed by severe anoxic ischemic brain injury. The patient has had constant right upper extremity jerking movements for quite some time now and in addition, also was noted to have a single generalized tonic-clonic seizure. The purpose of this EEG was to better delineate the type of seizure disorder and to exclude ongoing ictal phenomena as a reason for the constant right upper extremity jerking movements. TECHNICAL NOTE: This EEG was performed on a [employer] with electrodes placed on the scalp according to the International 10-20 system. [id number] and [id number] montages were used. The EEG was technically satisfactory and was performed in the poorly responsive state. OBSERVATIONS: In the poorly responsive state, the background activity consisted of 4-5 Hz theta and 1.5-2 Hz delta activity. When the patient was stimulated with various different stimuli, no significant change in the EEG background was seen. Throughout the tracing, right upper extremity jerking movements were seen and were not associated with any EEG correlate. IMPRESSION: This is an abnormal EEG characterized by, 1. Slowing of the background in the 4-5 Hz theta and 1.5-2.5 Hz delta range. 2. No reactivity to external stimulation. 3. Constant right upper extremity jerking movements not associated with any EEG correlate. COMMENT: This study is consistent with: 1. An encephalopathy of a moderate degree. 2. The abnormal right upper extremity movements are definitely not ictal in nature. Chinmay Miranda M.D., M.S.P.H. DR: SUDHA JOB#: [id number]
[2018-02-20] MEDS ORDERED: Iron Sucrose 100 MG in NS 55 ML IV SCH (21:00)
--- NOTE | 2018-02-20 22:59 | Internal Med Progress Note ---
Subjective Physician Name Jak Damon Attending Physician Jak Damon MD Allergies: Coded Allergies: PENICILLINS (Verified Allergy, Unknown, 02/14/18) Subjective on Trach collar, open eyes with deep stimuli, Objective Last Vital Signs Date Time Temp Pulse Resp B/P (MAP) Pulse Ox O2 Delivery O2 Flow Rate FiO2 02/20/18 12:00 102 02/20/18 09:28 118/68 02/20/18 08:20 T-piece 6.0 28 02/20/18 08:20 20 02/20/18 08:20 99 02/20/18 08:00 99.0 99.0 Laboratory Tests Test 02/20/18 04:30 White Blood Count 16.1 K/UL (4.8-10.8) H Red Blood Count 2.88 M/UL (4.20-5.40) L Hemoglobin 8.9 G/DL (12.0-16.0) L Hematocrit 26.3 % (37.0-47.0) L Mean Corpuscular Volume 92 FL (80-99) Mean Corpuscular Hemoglobin 30.8 PG (27.0-31.0) Mean Corpuscular Hemoglobin Concent 33.7 G/DL (32.0-36.0) Red Cell Distribution Width 12.8 % (11.6-14.8) Platelet Count 247 K/UL (150-450) Mean Platelet Volume 8.0 FL (6.5-10.1) Neutrophils (%) (Auto) 72.9 % (45.0-75.0) Lymphocytes (%) (Auto) 17.7 % (20.0-45.0) L Monocytes (%) (Auto) 5.4 % (1.0-10.0) Eosinophils (%) (Auto) 3.3 % (0.0-3.0) H Basophils (%) (Auto) 0.8 % (0.0-2.0) Sodium Level 137 MMOL/L (136-145) Potassium Level 3.7 MMOL/L (3.5-5.1) Chloride Level 100 MMOL/L (98-107) Carbon Dioxide Level 28 MMOL/L (21-32) Anion Gap 9 mmol/L (5-15) Blood Urea Nitrogen 13 mg/dL (7-18) Creatinine 0.7 MG/DL (0.55-1.30) Estimat Glomerular Filtration Rate > 60 mL/min (>60) Glucose Level 120 MG/DL (74-106) H Calcium Level 8.7 MG/DL (8.5-10.1) Phosphorus Level 3.3 MG/DL (2.5-4.9) Magnesium Level 1.9 MG/DL (1.8-2.4) Total Bilirubin 0.5 MG/DL (0.2-1.0) Aspartate Amino Transf (AST/SGOT) 311 U/L (15-37) H Alanine Aminotransferase (ALT/SGPT) 100 U/L (12-78) H Alkaline Phosphatase 71 U/L (46-116) Total Protein 7.0 G/DL (6.4-8.2) Albumin 2.8 G/DL (3.4-5.0) L Globulin 4.2 g/dL Albumin/Globulin Ratio 0.7 (1.0-2.7) L Intake and Output 02/19/18 02/20/18 19:00 07:00 Intake Total 870 ml Output Total 1050 ml 900 ml Balance -180 ml -900 ml Intake Free Water 100 ml IV Total 110 ml Tube Feeding 600 ml Other 60 ml Output Urine Total 1050 ml 900 ml # Bowel Movements 1 Objective General: No acute distress, responsive with open eyes upon deep stimuli. HEENT: NCAT, sclera anicteric, PERRL, Neck: Supple, Trach site intact. Lungs: Fair inspiratory effort, decrease breath sound on bases, no Wheeze or Rales. Heart: Regular rate and rhythm, normal S1/S2, no murmurs, distant heart sound. Abdomen: soft, nontender, nondistended. Normoactive bowel sounds, Obesity, PEG site intact. : Baxter cath. Extremities: No Cyanosis , clubbing, +1 LE's edema. Neuro: not verbal , unable to F/U with commands. Contracted RUE, unable to move LE's. right upper extremity jerking movements. Skin: warm, no rashes Assessment/Plan Assessment/Plan Fever and Leukocytosis possible Sepsis / bacteremia, UTI Chronic encephalopathy/anoxic brain injury. History of vent-dependent respiratory failure. Status post PEG and trach. Hypertension. Hydrocephalus. Generalized tonic-clonic seizure Plan: Abx: Meropenem F/U with Labs and cultures Tube feeding @ 50 cc/hr F/U with ID recommendations. DC Planning to [facility] soon. On Keppra IV Neurology consult with Jak Grewal MD February 20, 2018 22:59
--- NOTE | 2018-02-24 08:51 | Discharge Summary ---
Discharge Summary Discharge Summary _ DATE OF ADMISSION: 02/15/2018 DATE OF DISCHARGE: 02/20/2018 REASON FOR ADMISSION: 47 years old female with past medical history significant for chronic respiratory failure, tracheostomy status, dysphagia, G-tube, chronic anoxic encephalopathy, seizure disorder, history of methamphetamine abuse, presented with fever, abdominal distention and tachycardia. According to nursing staff patient had no urinary output and was distended. Baxter catheter was subsequently placed in SNF.Urine output was bloody. Nursing staff reported fever. Patient was sent for further evaluation. In ED vital signs with revealed fever 100.6, tachycardia 139, tachypnea with respiratory rate 24 , blood pressure was stable. Patient with trach collar. Pulse oximetry was stable. Laboratory workup revealed WBC 28.2. BUN 53, creatinine 2.7. Lactic acid 3.1, repeated 2.6 . Troponin was negative Urinalysis with evidence of UTI. Chest x-ray with evidence of pneumonia. Stable LFT , electrolytes. EKG revealed sinus tachycardia. CT of the abdomen and pelvis revealed left greater than right hydronephrosis and hydroureter without urinary tract calculi; possibly related to bladder wall thickening. Suspected ileus, no definite obstruction. Patient was admitted with diagnosis of sepsis ,urinary tract infection , pneumonia, acute renal failure, chronic encephalopathy, chronic respiratory failure with tracheostomy status, dysphagia ,G-tube, abdominal distention, hydronephrosis, hydrocephalus, hypertension, seizure disorder. CONSULTANTS: case checker Dr. Oh neurologist Dr. Smith pulmonary Dr. Soto ID specialist Dr. Aquino control room operator Dr. Link play therapist/oncologist Dr. Schmidt psychiatrist HOSPITAL COURSE Patient admitted to telemetry floor. Patient started on IV fluids and empiric antibiotics. Urine culture revealed Proteus ESBL and Providencia. rettgeri, Sputum culture revealed Serratia and Pseudomonas, blood culture were negative. Patient continued to exhibit persistent leukocytosis. Repeated blood culture were negative. Antibiotic regimen optimized as per infectious disease specialist. Prior to transfer to LTAC , PICC line was placed via right upper extremity to complete the course of antibiotics a recommended by infectious disease specialist. Neurologist closely followed . Seizure precautions were maintained. Keppra was continued. EKG revealed moderate to severe encephalopathy, per history chronic anoxic ischemic encephalopathy. Neurologist recommended continue current regimen, observe closely. Patient was hydrated. Tallow Pumper closely followed. Renal parameters and electrolytes were closely monitored. Electrolytes were replaced as needed, nephrotoxins were avoided. Acute renal failure resolved, likely due to dehydration and sepsis Spa Therapist closely followed. Tracheostomy care provided. Meticulous pulmonary toilet was instituted. Hand-held nebulizing provided via on trach collar. Patient was suctioned frequently. Follow chest x-ray showed some improvement. Cardiology consult was requested secondary to sinus tachycardia on telemetry. Per case checker echocardiogram was done, which revealed preserved ejection fraction of 60-65%. Mild left ventricular hypertrophy, no evidence of pericardial effusion. Right ventricular systolic pressure of 25. Per case checker , sinus tachycardia was likely due to sepsis and anemia , tachycardia improved. Patient had evidence of atrial fibrillation , rate control with digoxin and beta sarai . Blood pressure was managed with beta sarai and remained stable. Air Conditioning Unit Tester followed. Anemia workup was consistent with anemia of iron deficiency. Patient was on the IV Venofer. Hemoglobin and hematocrit were closely monitored with goal to keep hemoglobin above 8. Psychiatrist closely followed. Psychiatric medication regimen was optimized. Bowel regimen was instituted upon admission . Patient had bowel movement. DVT and GI prophylaxis provided. Supportive care provided . Patient was subsequently transferred to LTAC at [facility] for further management FINAL DIAGNOSES: Sepsis Urinary tract infection with Proteus ESBL and Providencia Pneumonia with Serratia and Pseudomonas Severe chronic anoxic encephalopathy Chronic respiratory failure with tracheostomy status Dysphagia G-tube Hypertension Generalized tonic-clonic seizure disorder Hydrocephalus Acute renal failure, resolved Dehydration Anemia of iron deficiency Sinus tachycardia( secondary to sepsis and anemia), improved DISCHARGE MEDICATIONS: List of medication was sent accepting facility DISCHARGE INSTRUCTIONS: Patient was transferred to long-term acute care facility i.e. [facility] at [place]. Follow up with medical doctor at the facility I have been assigned to dictate discharge summary for this account. I was not involved in the patient's management. Marzena Powers NP February 24, 2018 08:51
== END 2018-02-20 12:23 | DRG 871 ==
LOC: EDBD 23:58 → EMR 02-15 00:22 → 2W 02-15 01:55 → EDBEDREQSVC 02-15 02:50 → EDBEDREQ 02-15 02:59 → 2W 02-17 10:06 → 2E 02-17 20:40
PROC: B518ZZA Fluoroscopy of Superior Vena Cava, Guidance (ICD-10-PCS; principal; 2018-02-18)
PROC: 02HV33Z Insertion of Infusion Device into Superior Vena Cava, Percutaneous Approach (ICD-10-PCS; principal; 2018-02-18)
DX: A41.9 Sepsis, unspecified organism (principal); J15.1 Pneumonia due to Pseudomonas; J15.6 Pneumonia due to other Gram-negative bacteria; N17.9 Acute kidney failure, unspecified; N39.0 Urinary tract infection, site not specified; G93.1 Anoxic brain damage, not elsewhere classified; J96.10 Chronic respiratory failure, unspecified whether with hypoxia or hypercapnia; G91.9 Hydrocephalus, unspecified; R40.3 Persistent vegetative state; Z99.11 Dependence on respirator [ventilator] status; N13.30 Unspecified hydronephrosis; R65.20 Severe sepsis without septic shock; I48.91 Unspecified atrial fibrillation; R31.9 Hematuria, unspecified; R33.9 Retention of urine, unspecified; Z93.0 Tracheostomy status; Z93.1 Gastrostomy status; R13.10 Dysphagia, unspecified; I10 Essential (primary) hypertension; G40.909 Epilepsy, unspecified, not intractable, without status epilepticus; E86.0 Dehydration; D50.9 Iron deficiency anemia, unspecified
CPT/HCPCS: 36415; 36569; 36600; 70450; 71045; 74176; 76937; 80053; 80061; 80162; 80202; 81003; 82248; 82270; 82550; 82553; 82607; 82728; 82746; 82803; 82977; 83036; 83540; 83550; 83605; 83735; 83880; 84100; 84443; 84484; 84550; 85007; 85025; 85610; 85730; 86140; 87040; 87070; 87081; 87086; 87181; 87205; 93005; 93306; 94640; 94664; 94760; 95819; 99285; 99291

== ENCOUNTER 2020-02-19 09:40 | Inpatient (IN) | payer MEDICARE, MEDICAID ==
[~2020-02-19] VITALS: Ht 162.6 cm; Wt 75.8 kg
[2020-02-19] VITALS (26 sets, daily range): BP systolic 79–130; BP diastolic 50–73
[~2020-02-19 09:40] MED LIST: ATIVAN2 MG GT; CARVEDILOL12.5 MG GT; COMPAZINE10 MG GT; COZAAR25 MG GT; CRANBERRY JUIC425 MG GT; DIGOXIN0.25 MG/5 GT; DULCOLAX10 MG RC; HEPARIN SO5000 UNIT2 SUBQ; IPRATROPIU0.2 MG/1 M HHN; KEPPRA LIQ100 MG/1 M GT; LACTULOSE20 GM/301 GT; MILK OF MA400 MG/51 GT; MULTIVITAMINS1 EAC8 GT; PEPCID AC20 M2 GT
--- NOTE | 2020-02-19 10:46 | Diagnostic Imaging Report ---
EXAM: XR Chest, 1 View CLINICAL HISTORY: LINE TECHNIQUE: Frontal view of the chest. COMPARISON: No relevant prior studies available. FINDINGS: Lungs: Evaluation for pulmonary opacities is degraded by extensive overlying subcutaneous emphysema. Volume loss throughout the left lung related to left-sided pneumothorax. Pleural space: Left-sided pneumothorax, approximately 50% by volume. Heart: Unremarkable. No cardiomegaly. Mediastinum: Unremarkable. No mediastinal shift. Bones/joints: Unremarkable. Soft tissues: Extensive subcutaneous emphysema throughout the chest wall and neck soft tissues bilaterally. Tubes, lines and devices: Endotracheal tube tip is 2.5 cm above the emerita. Telemetry leads overlie the thorax. IMPRESSION: 1. Left-sided pneumothorax, approximately 50% by volume. 2. Extensive subcutaneous emphysema throughout the chest wall and neck soft tissues bilaterally. <MYCVCSECTION> Communications: 02/19/20 10:51 Call Doctor Regarding Pneumothorax, called Dr Murdock on 02/18 10:51 (-07:00)
[2020-02-19 10:53] LABS: HEMATOCRIT 37.9 % (37.0-47.0); MEAN CORPUSCULAR VOLUME 94 FL (80-99); PLATELET COUNT 268 K/UL (150-450); RED BLOOD COUNT 4.06 M/UL (4.20-5.40); RED CELL DISTRIBUTION WIDTH 11.6 % (11.6-14.8); WHITE BLOOD COUNT 19.4 K/UL (4.8-10.8)
[2020-02-19 11:05] LABS: INR 0.9 (0.9-1.1)
[2020-02-19 11:18] LABS: ALANINE AMINOTRANSFERASE 218 U/L (12-78); ALBUMIN 3.3 G/DL (3.4-5.0); ALBUMIN/GLOBULIN RATIO 0.8 (1.0-2.7); ALKALINE PHOSPHATASE 281 U/L (46-116); ANION GAP 19 mmol/L (5-15); ASPARTATE AMINO TRANSFERASE 219 U/L (15-37); BILIRUBIN,TOTAL 0.3 MG/DL (0.2-1.0); BLOOD UREA NITROGEN 13 mg/dL (7-18); CARBON DIOXIDE 19 MMOL/L (21-32); CKMB 0.5 NG/ML (0.0-3.6); CREATINE KINASE 194 U/L (26-308); CREATININE 0.8 MG/DL (0.55-1.30); PHOSPHORUS 8.9 MG/DL (2.5-4.9)
[2020-02-19 11:35] LABS: SODIUM 140 MMOL/L (136-145)
[2020-02-19 11:37] LABS: CHLORIDE 102 MMOL/L (98-107); POTASSIUM 6.1 MMOL/L (3.5-5.1)
[2020-02-19] MEDS ORDERED: Cefepime HCl 2 GM in NS 110 ML IV ONE (12:30)
[2020-02-19] MEDS ORDERED: Vancomycin 1.5 GM in NS 275 ML IVPB ONE (12:30)
--- NOTE | 2020-02-19 12:42 | Diagnostic Imaging Report ---
EXAM: XR Chest, 1 View CLINICAL HISTORY: TUBE PLCMT TECHNIQUE: Frontal view of the chest. COMPARISON: Chest x-ray obtained earlier on 02/19/2020 at 10:16 AM. FINDINGS: Lungs: The subcutaneous emphysema and presumed bilateral breast implants degrades further detailed evaluation for pulmonary opacities. Pleural space: Interval improvement of the left-sided pneumothorax.. Heart: Unremarkable. No cardiomegaly. Mediastinum: Unremarkable. Bones/joints: Unremarkable. Soft tissues: No significant change in the diffuse subcutaneous emphysema throughout the chest wall and neck soft tissues bilaterally. Tubes, lines and devices: Series of plain films demonstrating positioning and final placement of a left chest tube. Initial film demonstrates a tube overlying the left upper chest lateral soft tissues, however final film demonstrates the chest tube in expected radiographic position along the left upper thorax, with interval improvement of the left-sided pneumothorax. Stable positioning of endotracheal tube, with the tip approximately 2.5 cm from the emerita. IMPRESSION: 1. Series of plain films demonstrating positioning and final placement of a left chest tube. Initial film demonstrates a tube overlying the left upper chest lateral soft tissues, however final film demonstrates the chest tube in expected radiographic position along the left upper thorax, with interval improvement of the left-sided pneumothorax. 2. No significant change in the diffuse subcutaneous emphysema throughout the chest wall and neck soft tissues bilaterally.
[2020-02-19] MEDS ORDERED: propofoL 1,000mg/100ml 100 ML IV SCH (12:45)
--- NOTE | 2020-02-19 12:45 | Emergency Room Report ---
History of Present Illness General Chief Complaint: Dyspnea/Respdistress Source: Medical Record Present Illness HPI 49-year-old female with trach PEG, presents due to bleeding from her trach and hypoxia prior to arrival the trach was being changed at correction but they were unable to oxygenator or ventilate her because there was no air movement to the trach, they noticed copious amounts of blood, patient was emergently sent to the hospital for evaluation and treatment due to trach complication Allergies: Coded Allergies: PENICILLINS (Verified Allergy, Unknown, 02/14/18) COVID-19 Screening Contact w/high risk pt: No Recent Travel to affected area: No Experienced COVID-19 symptoms?: No COVID-19 Testing performed MANAGER LIBRARY: No - unk COVID-19 Screening: PUI COVID-19 Patient History Limited by: medical condition - Trach and PEG Past Medical History: see triage record Last Menstrual Period: n/a Reviewed Nursing Documentation: PMH: Agreed; PSxH: Agreed Nursing Documentation-PMH Past Medical History: No History, Except For Hx Hypertension: Yes - METHAMPETHAMINE ABUSE Hx Cancer: No Hx Gastrointestinal Problems: Yes - GASTROSTOMY Hx Neurological Problems: Yes - ENCEPHALOPATHY Hx Seizures: Yes Review of Systems All Other Systems: limited - Trach and PEG Physical Exam Vital Signs Date Time Temp Pulse Resp B/P (MAP) Pulse Ox O2 Delivery O2 Flow Rate FiO2 02/19/20 09:34 98.2 130 18 130/68 (88) 55 Room Air 02/19/20 09:50 100 Sp02 EP Interpretation: reviewed, abnormal - hypoxic General Appearance: severe distress Head: normocephalic, atraumatic Eyes: bilateral eye PERRL, bilateral eye EOMI ENT: uvula midline, moist mucus membranes Neck: supple, thyroid normal, supple/symm/no masses, tracheotomy - Bleeding from tracheostomy site Respiratory: decreased breath sounds, accessory muscle use Cardiovascular #1: normal peripheral pulses, no edema, no gallop, no murmur, tachycardia Gastrointestinal: non tender, soft, no guarding, no rebound, other - PEG Musculoskeletal: normal inspection Neurologic: other - Unresponsive Skin: no rash, warm/dry Procedures Critical Care Time Critical Care Time Given the critical condition in which the patient arrived, the patient was immediately assessed by myself and the nurse, and cardiac monitoring initiated due to the potential for rapid decompensation of the patient's clinical condition. During the course of the patient's stay, I spent a considerable amount of time at the bedside performing serial re-evaluations of the patient's hemodynamic and clinical status because of the recognized potential threat to life or limb in this condition. I then had a chance to review not only all of the available current laboratory and radiographic studies obtained today, but I also reviewed old records available to me at the time. Additionally, any ancillary information available including rod finisher records were reviewed. Sequential vital signs were obtained. Critical Care time of 92 minutes was performed exclusive of billable procedures. Chest Tube Chest Tube : Consent: Emergent Chest Tube Location: forth interspace Size of Polish Tube (cm): 24 Chest Tube Procedure: betadine prep, sterile drapes applied, sterile dressing applied Number of Attempts: Other - 2 Tube Drainage: see nurses notes Tube Sutured to Skin: Yes Post Procedure CXR?: Yes Patient Tolerated: Well Complications: Other - Chest tube could not be passed, post x-ray showed it in the subcutaneous tissue, second attempt was made with success with resolution of pneumothorax Central Line Central Line : Consent: Emergent Central Line Lumen: triple Maximal Sterile Barrier Tech: yes cap, yes mask, yes sterile gown, yes sterile gloves, yes large sterile sheet, yes hand hygiene, yes chlorhexidine prep Central Line Postion: femoral (R) Complications: none Central Line Post Position: sutured Attempts: One Patient Tolerated: Well Complications: None CPR/Code Blue CPR/Code Blue Narrative Patient coded at 950: CPR was conducted per ALS guidelines, patient was given bicarb and epinephrine twice with ROSC at 10AM Intubation Intubation : Consent: Emergent Time of Intubation: 09:45 Intubation Method: orotracheal Tube Size (cm): 7.5 Medications: Etomidate, Rocuronium Breath Sounds after Intubation: equal Intubation Complications: no complications Post Intubation Xray: Yes Progress/Xray Impression: Endotracheal tube in place, pneumothorax noted Attempts: One Patient Tolerated: Well Complications: None Medical Decision Making Diagnostic Impression: Primary Impression: Respiratory distress Additional Impressions: Respiratory failure Tracheostomy complication Respiratory arrest Pneumothorax on right ER Course 49-year-old female presented in respiratory distress due to tracheostomy complication with replacement at correction, patient was sent emergently to emergency room for evaluation, trach was removed, patient was emergently intubated due to acute hypoxia, patient then had a respiratory arrest requiring CPR, patient started on antibiotics, pressors patient also found to have a pneumothorax after CPR. Patient then had a chest tube inserted emergently for management Patient has an elevated white count, possible pneumonitis on x-ray secondary to aspiration from bleeding tracheostomy. Patient given antibiotics, fluids and pressors Patient admitted to Dr. Delgado Laboratory Tests Test 02/19/20 10:10 02/19/20 10:23 02/19/20 11:55 White Blood Count 19.4 K/UL (4.8-10.8) H Red Blood Count 4.06 M/UL (4.20-5.40) L Hemoglobin 13.0 G/DL (12.0-16.0) Hematocrit 37.9 % (37.0-47.0) Mean Corpuscular Volume 94 FL (80-99) Mean Corpuscular Hemoglobin 31.9 PG (27.0-31.0) H Mean Corpuscular Hemoglobin Concent 34.1 G/DL (32.0-36.0) Red Cell Distribution Width 11.6 % (11.6-14.8) Platelet Count 268 K/UL (150-450) Mean Platelet Volume 7.9 FL (6.5-10.1) Neutrophils (%) (Auto) % (45.0-75.0) Lymphocytes (%) (Auto) % (20.0-45.0) Monocytes (%) (Auto) % (1.0-10.0) Eosinophils (%) (Auto) % (0.0-3.0) Basophils (%) (Auto) % (0.0-2.0) Differential Total Cells Counted 100 Neutrophils % (Manual) 36 % (45-75) L Lymphocytes % (Manual) 46 % (20-45) H Monocytes % (Manual) 14 % (1-10) H Eosinophils % (Manual) 0 % (0-3) Basophils % (Manual) 0 % (0-2) Band Neutrophils 4 % (0-8) Platelet Estimate Adequate Platelet Morphology Normal Red Blood Cell Morphology Normal Prothrombin Time 10.4 SEC (9.30-11.50) Prothrombin Time INR 0.9 (0.9-1.1) Activated Partial Thromboplast Time 36 SEC (23-33) H Sodium Level 140 MMOL/L (136-145) Potassium Level 6.1 MMOL/L (3.5-5.1) *H Chloride Level 102 MMOL/L (98-107) Carbon Dioxide Level 19 MMOL/L (21-32) L Anion Gap 19 mmol/L (5-15) H Blood Urea Nitrogen 13 mg/dL (7-18) Creatinine 0.8 MG/DL (0.55-1.30) Estimated Glomerular Filtration Rate > 60 mL/min (>60) Glucose Level 338 MG/DL (74-106) H Lactic Acid Level 14.40 mmol/L (0.4-2.0) H Calcium Level 9.0 MG/DL (8.5-10.1) Phosphorus Level 8.9 MG/DL (2.5-4.9) H Magnesium Level 2.6 MG/DL (1.8-2.4) H Total Bilirubin 0.3 MG/DL (0.2-1.0) Aspartate Amino Transferase (AST) 219 U/L (15-37) H Alanine Aminotransferase (ALT) 218 U/L (12-78) H Alkaline Phosphatase 281 U/L (46-116) H Total Creatine Kinase 194 U/L (26-308) Creatine Kinase MB 0.5 NG/ML (0.0-3.6) Creatine Kinase MB Relative Index 0.2 Troponin I 0.000 ng/mL (0.000-0.056) Pro-B-Type Natriuretic Peptide 41 pg/mL (0-125) Total Protein 7.5 G/DL (6.4-8.2) Albumin 3.3 G/DL (3.4-5.0) L Globulin 4.2 g/dL Albumin/Globulin Ratio 0.8 (1.0-2.7) L Lipase 278 U/L (73-393) Arterial Blood pH 7.297 (7.350-7.450) Arterial Blood Partial Pressure CO2 43.7 mmHg (35.0-45.0) Arterial Blood Partial Pressure O2 89.2 mmHg (75.0-100.0) Arterial Blood HCO3 20.9 mmol/L (22.0-26.0) L Arterial Blood Oxygen Saturation 95.5 % (95-100) Arterial Blood Base Excess -5.5 (-2-2) L Hung Test Positive EKG Diagnostic Results EKG Time: 10:39 Rhythm Strip Diag. Results Rhythm Strip Time: 12:57 EP Interpretation: yes Rate: 109 Rhythm: other - Sinus tachycardia Chest X-Ray Diagnostic Results Chest X-Ray Diagnostic Results : Chest X-Ray Ordered: Yes # of Views/Limited/Complete: 1 View Indication: Shortness of Breath EP Interpretation: Yes Interpretation: other - Left pneumothorax Impression: Other - Left pneumothorax Last Vital Signs Date Time Temp Pulse Resp B/P (MAP) Pulse Ox O2 Delivery O2 Flow Rate FiO2 02/19/20 11:50 130 20 100 02/19/20 09:34 98.2 130/68 (88) 55 Room Air Disposition: ADMITTED INPATIENT Condition: Critical Referrals: NON PHYSICIAN (PCP) Mark Murdock MD February 19, 2020 12:45
[2020-02-19] MEDS ORDERED: Etomidate 40mg/20ml Inj IV ONE (13:10)
[2020-02-19] MEDS ORDERED: Rocuronium Bromide 50mg/5ml Inj IV ONE (13:10)
[2020-02-19] MEDS ORDERED: DILANTIN-1125 MG/5 M PO ×2 (13:11→13:32)
[2020-02-19] MEDS ORDERED: ACETAMINOP160 MG/5 M GT (13:11)
[2020-02-19] MEDS ORDERED: Insulin Human Regular 100units/ml 3ml IV ONE (13:15)
[2020-02-19] MEDS ORDERED: IPRAT-ALBUT 0.5-3 ML IH (13:32)
[2020-02-19] MEDS ORDERED: CARVEDILOL3.125 MG ORAL (13:32)
[2020-02-19] MEDS ORDERED: VIMPAT100 MG PO (13:32)
[2020-02-19] MEDS ORDERED: FAMOTIDINE20 MG ORAL (13:32)
[2020-02-19] MEDS ORDERED: ERYGEL TOP (13:32)
[2020-02-19] MEDS ORDERED: KEPPRA LIQ100 MG/1 M ORAL (13:32)
[2020-02-19] MEDS ORDERED: LORAZEPAM2 MG/1 M1 IV (13:32)
[2020-02-19 15:05] LABS: APPEARANCE,URINE CLEAR; BILIRUBIN, URINE NEGATIVE (NEGATIVE); COLOR,URINE PALE YELLOW; GLUCOSE, URINE (UA) 3+ (NEGATIVE); KETONES,URINE NEGATIVE (NEGATIVE); LEUKOCYTE ESTERASE ,URINE NEGATIVE (NEGATIVE); NITRITE,URINE NEGATIVE (NEGATIVE); PH,URINE 7 (4.5-8.0); PROTEIN,URINE 2+ (NEGATIVE); UROBILINOGEN,URINE NORMAL MG/DL (0.0-1.0)
--- NOTE | 2020-02-19 16:57 | Diagnostic Imaging Report ---
EXAM: XR Chest, 1 View CLINICAL HISTORY: TUBE PLCMT TECHNIQUE: Frontal view of the chest. COMPARISON: Chest x-rays obtained earlier the same date on 02/19/20 at 11:31 AM and 10:16 AM FINDINGS: Lungs: Persistent mild increased interstitial markings. The lungs are otherwise clear without focal consolidation. Pleural space: Interval significant improvement of the left-sided pneumothorax, no longer well seen. Heart: Unremarkable. No cardiomegaly. Mediastinum: Unremarkable. Bones/joints: Unremarkable. Soft tissues: Persistent but improved subcutaneous emphysema in the chest reed and neck soft tissues bilaterally. Tubes, lines and devices: Left-sided chest tube in place, with expected positioning. Endotracheal tube tip 3.2 cm above the emerita. Telemetry leads overlie the thorax. IMPRESSION: 1. Left-sided chest tube in place, with expected positioning. 2. Interval significant improvement of the left-sided pneumothorax, which is no longer well seen. 3. Persistent mild increased interstitial markings. This is nonspecific but may suggest mild interstitial edema or a mild pneumonitis. No focal consolidation. 4. Improved subcutaneous emphysema in the chest reed and neck soft tissues bilaterally.
[2020-02-19] MEDS: DOPamine 400mg/250ml 250 ML IV SCH (21:18)
[2020-02-19] MEDS: propofoL 1,000mg/100ml 100 ML IV SCH (21:21)
[2020-02-19] MEDS: Meropenem 1gm in NS 55ml IVPB SCH (21:34)
[2020-02-19] MEDS ORDERED: LORazepam Inj 2mg/ml 1ml IV PRN ×2 (21:45→22:00)
[2020-02-19] MEDS: Phenytoin 100 MG in NS 55 ML IVPB SCH (23:35)
[2020-02-20] VITALS (60 sets, daily range): BP systolic 78–118; BP diastolic 51–77
[2020-02-20] MEDS: Vancomycin 1 GM in NS 275 ML IVPB SCH ×2 (05:26→16:06)
[2020-02-20] MEDS: Meropenem 1gm in NS 55ml IVPB SCH ×3 (05:26→21:32)
[2020-02-20] MEDS: DOPamine 400mg/250ml 250 ML IV SCH ×4 (06:07→21:13)
[2020-02-20] MEDS: Phenytoin 100 MG in NS 55 ML IVPB SCH ×3 (07:57→15:14)
[2020-02-20] MEDS: Pantoprazole Inj IVP SCH (08:41)
[2020-02-20] MEDS: levETIRAcetam 500mg/NS100ml 100 ML IVPB SCH ×2 (08:41→20:45)
[2020-02-20 11:24] LABS: HEMOGLOBIN 12.6 G/DL (12.0-16.0); MEAN CORPUSCULAR VOLUME 88 FL (80-99); PLATELET COUNT 228 K/UL (150-450); RED BLOOD COUNT 3.96 M/UL (4.20-5.40); WHITE BLOOD COUNT 21.4 K/UL (4.8-10.8)
[2020-02-20 12:00] LABS: ALBUMIN 2.7 G/DL (3.4-5.0); ALBUMIN/GLOBULIN RATIO 0.8 (1.0-2.7); ALKALINE PHOSPHATASE 219 U/L (46-116); ANION GAP 11 mmol/L (5-15); ASPARTATE AMINO TRANSFERASE 118 U/L (15-37); BILIRUBIN,TOTAL 1.2 MG/DL (0.2-1.0); BLOOD UREA NITROGEN 17 mg/dL (7-18); CARBON DIOXIDE 26 MMOL/L (21-32); CHLORIDE 110 MMOL/L (98-107); CREATININE 0.8 MG/DL (0.55-1.30); POTASSIUM 2.9 MMOL/L (3.5-5.1); SODIUM 147 MMOL/L (136-145)
[2020-02-20 12:35] LABS: ALANINE AMINOTRANSFERASE 251 U/L (12-78); BILIRUBIN,DIRECT 0.7 MG/DL (0.0-0.3)
--- NOTE | 2020-02-20 13:11 | Consultation ---
History of Present Illness General Date patient seen: February 20, 2020 Chief Complaint: Dyspnea/Respdistress Present Illness HPI This is a 49-year-old female with history of trach / PEG, presents due to bleeding from her trach and hypoxia prior to arrival [facility] but they were unable to oxygenator or ventilate her because there was no air movement to the trach, they noticed copious amounts of blood, patient was emergently sent to the hospital for evaluation and treatment due to trach complication. Intubated, noted to have ptx, chest tube placed. admitted to ICU. surgery called to evaluate and assist with care. patient seen and evaluated in ICU. Allergies: Coded Allergies: PENICILLINS (Verified Allergy, Unknown, 02/14/18) Medication History Scheduled Bisacodyl (Dulcolax), 10 MG RC DAILY, (Reported) Carvedilol* (Carvedilol*), 12.5 MG GT EVERY 12 HOURS, (Reported) Carvedilol* (Carvedilol*), 3.125 MG ORAL EVERY 12 HOURS, (Reported) Cranberry Extract (Cranberry Juice Powder), 425 MG GT DAILY, (Reported) Digoxin* (Digoxin*), 0.25 MG GT DAILY, (Reported) Famotidine (Pepcid Ac), 20 MG GT BID, (Reported) Famotidine* (Pepcid 20mg tablet*), 20 MG ORAL DAILY, (Reported) Heparin Sod (Porcine) (Heparin Sodium*), 5,000 UNITS SUBQ EVERY 12 HOURS, ( Reported) Lactulose (Lactulose*), 30 ML GT BID, (Reported) Levetiracetam (Keppra), 7.5 ML GT EVERY 12 HOURS, (Reported) Levetiracetam (Keppra), 5 ML ORAL DAILY, (Reported) Lorazepam* (Lorazepam*), 2 MG IV Q4H, (Reported) Losartan Potassium* (Cozaar*), 12.5 MG GT DAILY, (Reported) Magnesium Hydroxide* (Milk Of Magnesia*), 30 ML GT DAILY, (Reported) Multivitamin With Minerals (Multivitamins With Minerals*), 1 TAB GT DAILY, ( Reported) Scheduled PRN Acetaminophen 160MG/5ML* (Acetaminophen*), 20.3 ML GT THREE TIMES A DAY PRN for Fever/Headache/Mild Pain, (Reported) Ipratropium Waves 0.5MG/2.5ML (Ipratropium Waves 0.5MG/2.5ML), 0.5 MG HHN EVERY 2 HOURS PRN for Shortness of Breath, (Reported) Lorazepam* (Ativan*), 2 MG GT EVERY 12 HOURS PRN for For Seizures, (Reported) Prochlorperazine (Compazine*), 10 MG GT EVERY 8 HOURS PRN for Nausea & Vomiting, (Reported) Miscellaneous Medications Erythromycin (Erythromycin 2% Solution), 30 GM TOP, (Reported) Ipratropium/Albuterol Sulfate (Iprat-Albut 0.5-3(2.5) Mg/3 Ml), 3 ML IH, ( Reported) Lacosamide (Vimpat), 100 MG PO, (Reported) Phenytoin (Dilantin-125), 125 MG PO, (Reported) Phenytoin (Dilantin-125), 125 MG PO, (Reported) Patient History Limited by: medical condition History Provided By: Patient, Medical Record Healthcare decision maker Resuscitation status Advanced Directive on File Past Medical/Surgical History Past Medical/Surgical History: (1) Sepsis (2) Atrial fibrillation (3) Hydronephrosis (4) Fever (5) Hematuria (6) Abdominal distension (7) Dysphagia (8) Hydrocephalus (9) Leukocytosis (10) Seizure disorder (11) Encephalopathy (12) Pneumonia (13) HTN (hypertension) (14) Tracheostomy care (15) Respiratory arrest (16) Pneumothorax on right (17) Respiratory distress (18) Respiratory failure (19) Tracheostomy complication Review of Systems ROS Narrative unable to obtain given medical condition. Physical Exam General Appearance: moderate distress Lines, tubes and drains: chest tube, hurley cath, other HEENT: mucous membranes moist Neck: trach, other Respiratory/Chest: on vent Cardiovascular/Chest: tachycardia Abdomen: soft, no organomegaly, no mass, feeding tube Extremities: normal inspection, slow capillary refill Skin Exam: warm/dry Neurologic: unresponsiveness Last 24 Hour Vital Signs Date Time Temp Pulse Resp B/P (MAP) Pulse Ox O2 Delivery O2 Flow Rate FiO2 02/20/20 12:45 106/61 02/20/20 11:22 108 20 50 02/20/20 11:00 [id number] 02/20/20 11:00 20 106/61 Mechanical Ventilator 50 02/20/20 11:00 106/61 02/20/20 10:56 106/58 02/20/20 10:55 112/52 02/20/20 10:00 100 20 106/58 (74) 100 02/20/20 10:00 104/62 02/20/20 10:00 20 104/62 Mechanical Ventilator 50 02/20/20 10:00 104/62 02/20/20 09:30 99 20 104/60 (75) 100 02/20/20 09:00 50 02/20/20 09:00 108 20 96/56 (69) 97 02/20/20 09:00 104/61 02/20/20 09:00 20 104/61 Mechanical Ventilator 50 02/20/20 09:00 104/61 02/20/20 08:50 50 02/20/20 08:30 114 20 109/63 (78) 97 02/20/20 08:00 103/71 02/20/20 08:00 20 103/71 Mechanical Ventilator 60 02/20/20 08:00 103/71 02/20/20 08:00 99.2 124 20 100/60 (73) 100 02/20/20 08:00 Mechanical Ventilator 02/20/20 08:00 60 02/20/20 07:01 111 20 60 02/20/20 07:00 111/70 02/20/20 07:00 20 111/70 Mechanical Ventilator 70 02/20/20 07:00 111/70 02/20/20 07:00 108 20 111/70 (84) 100 02/20/20 06:30 115 20 105/59 (74) 100 02/20/20 06:30 115 20 02/20/20 06:15 118 21 103/59 (74) 100 02/20/20 06:09 121 20 87/54 (65) 100 02/20/20 06:07 84/59 02/20/20 06:00 118 20 84/59 (67) 100 02/20/20 06:00 20 84/59 Mechanical Ventilator 70 02/20/20 06:00 105/59 02/20/20 05:45 120 20 85/56 (66) 100 02/20/20 05:31 123 20 81/62 (68) 100 02/20/20 05:30 123 20 80/60 (67) 100 02/20/20 05:00 124 20 85/56 (66) 100 02/20/20 05:00 85/56 02/20/20 05:00 20 85/56 Mechanical Ventilator 70 02/20/20 04:30 139 26 110/77 (88) 99 02/20/20 04:00 70 02/20/20 04:00 Mechanical Ventilator 02/20/20 04:00 20 104/66 Mechanical Ventilator 70 02/20/20 04:00 104/66 02/20/20 04:00 128 02/20/20 04:00 99.6 128 20 104/66 (79) 100 02/20/20 03:30 133 20 93/70 (78) 100 02/20/20 03:00 20 92/46 Mechanical Ventilator 70 02/20/20 03:00 92/64 02/20/20 03:00 135 20 92/64 (73) 100 02/20/20 02:49 128 20 93/66 (75) 100 02/20/20 02:45 130 29 104/72 (83) 100 02/20/20 02:41 124 20 70 02/20/20 02:30 120 20 86/54 (65) 100 02/20/20 02:26 78/51 02/20/20 02:16 121 20 78/51 (60) 100 02/20/20 02:15 121 20 84/54 (64) 100 02/20/20 02:00 123 20 86/56 (66) 100 02/20/20 02:00 86/56 02/20/20 02:00 20 86/56 Mechanical Ventilator 80 02/20/20 01:50 124 19 89/55 (66) 99 02/20/20 01:45 120 20 83/55 (64) 98 02/20/20 01:30 119 20 89/57 (68) 98 02/20/20 01:15 119 20 90/53 (65) 97 02/20/20 01:00 98.8 120 20 90/58 (69) 98 02/20/20 01:00 90/58 02/20/20 01:00 20 90/58 Mechanical Ventilator 80 02/20/20 00:30 118 20 87/51 (63) 98 02/20/20 00:22 118 20 90/52 (65) 98 02/20/20 00:18 118 20 87/51 (63) 97 02/20/20 00:15 118 20 80/51 (61) 97 02/20/20 00:00 80 02/20/20 00:00 Mechanical Ventilator 02/20/20 00:00 122 02/20/20 00:00 122 20 84/52 (63) 98 02/20/20 00:00 84/51 02/20/20 00:00 20 84/52 Mechanical Ventilator 80 02/19/20 23:45 122 20 80/57 (65) 98 02/19/20 23:30 125 20 83/51 (62) 98 02/19/20 23:30 83/51 02/19/20 23:15 126 20 88/52 (64) 98 02/19/20 23:00 126 20 89/53 (65) 99 02/19/20 23:00 89/53 02/19/20 23:00 20 89/53 Mechanical Ventilator 80 02/19/20 22:51 124 20 80 02/19/20 22:45 124 20 87/52 (64) 100 02/19/20 22:30 83/56 02/19/20 22:30 124 20 83/56 (65) 100 02/19/20 22:15 125 20 79/53 (62) 100 02/19/20 22:00 20 80/55 Mechanical Ventilator 100 02/19/20 22:00 125 20 80/55 (63) 100 02/19/20 21:58 125 20 87/63 (71) 100 02/19/20 21:45 127 20 86/57 (67) 100 02/19/20 21:35 20 83/63 Mechanical Ventilator 100 02/19/20 21:30 124 20 83/63 (70) 100 02/19/20 21:21 20 88/46 Mechanical Ventilator 100 02/19/20 21:18 88/46 02/19/20 21:15 124 20 83/50 (61) 100 02/19/20 21:02 125 20 88/56 (67) 100 02/19/20 21:00 124 20 84/59 (67) 100 02/19/20 20:45 124 20 87/73 (78) 100 02/19/20 20:30 123 20 84/65 (71) 100 02/19/20 20:15 123 20 85/67 (73) 100 02/19/20 20:06 124 02/19/20 20:00 100 02/19/20 20:00 99.0 125 20 87/69 (75) 100 02/19/20 20:00 Mechanical Ventilator 02/19/20 19:45 122 20 93/63 (73) 100 02/19/20 19:42 121 20 100 02/19/20 19:30 119 20 87/64 (72) 100 02/19/20 19:15 120 20 93/63 (73) 100 02/19/20 19:00 124 20 90/58 (69) 100 02/19/20 18:14 Mechanical Ventilator 02/19/20 16:05 98.1 124 18 130/68 100 Room Air 02/19/20 15:01 138 32 100 02/19/20 13:45 98.0 131 18 130/68 100 Room Air 02/19/20 13:15 125 20 100 Intake and Output 02/19/20 02/20/20 19:00 07:00 Intake Total 1000 ml 1855.1325 ml Output Total 200 ml 850 ml Balance 800 ml 1005.1325 ml Intake IV Total 1000 ml 1855.1325 ml Output Urine Total 200 ml 850 ml Chest Tube Drainage Total 0 ml Laboratory Tests Test 02/19/20 13:45 02/19/20 14:30 02/20/20 10:45 Lactic Acid Level 3.80 mmol/L (0.66-2.22) H 1.90 mmol/L (0.4-2.0) Triglycerides Level 139 MG/DL (30-150) Urine Color Pale yellow Urine Appearance Clear Urine pH 7 (4.5-8.0) Urine Specific [place] 1.010 (1.005-1.035) Urine Protein 2+ (NEGATIVE) H Urine Glucose (UA) 3+ (NEGATIVE) H Urine Ketones Negative (NEGATIVE) Urine Blood 2+ (NEGATIVE) H Urine Nitrite Negative (NEGATIVE) Urine Bilirubin Negative (NEGATIVE) Urine Urobilinogen Normal MG/DL (0.0-1.0) Urine Leukocyte Esterase Negative (NEGATIVE) Urine RBC 5-10 /HPF (0 - 2) H Urine WBC 0-2 /HPF (0 - 2) Urine Squamous Epithelial Cells Few /LPF (NONE/OCC) Urine Bacteria Few /HPF (NONE) White Blood Count 21.4 K/UL (4.8-10.8) H Red Blood Count 3.96 M/UL (4.20-5.40) L Hemoglobin 12.6 G/DL (12.0-16.0) Hematocrit 35.0 % (37.0-47.0) L Mean Corpuscular Volume 88 FL (80-99) Mean Corpuscular Hemoglobin 31.8 PG (27.0-31.0) H Mean Corpuscular Hemoglobin Concent 36.0 G/DL (32.0-36.0) Red Cell Distribution Width 11.0 % (11.6-14.8) L Platelet Count 228 K/UL (150-450) Mean Platelet Volume 8.1 FL (6.5-10.1) Neutrophils (%) (Auto) % (45.0-75.0) Lymphocytes (%) (Auto) % (20.0-45.0) Monocytes (%) (Auto) % (1.0-10.0) Eosinophils (%) (Auto) % (0.0-3.0) Basophils (%) (Auto) % (0.0-2.0) Differential Total Cells Counted 100 Neutrophils % (Manual) 86 % (45-75) H Lymphocytes % (Manual) 9 % (20-45) L Monocytes % (Manual) 5 % (1-10) Eosinophils % (Manual) 0 % (0-3) Basophils % (Manual) 0 % (0-2) Band Neutrophils 0 % (0-8) Platelet Estimate Adequate Platelet Morphology Normal Red Blood Cell Morphology Normal Sodium Level 147 MMOL/L (136-145) H Potassium Level 2.9 MMOL/L (3.5-5.1) #L Chloride Level 110 MMOL/L (98-107) H Carbon Dioxide Level 26 MMOL/L (21-32) Anion Gap 11 mmol/L (5-15) Blood Urea Nitrogen 17 mg/dL (7-18) Creatinine 0.8 MG/DL (0.55-1.30) Estimat Glomerular Filtration Rate > 60 mL/min (>60) Glucose Level 168 MG/DL (74-106) #H Calcium Level 8.0 MG/DL (8.5-10.1) L Total Bilirubin 1.2 MG/DL (0.2-1.0) H Direct Bilirubin 0.7 MG/DL (0.0-0.3) H Aspartate Amino Transf (AST/SGOT) 118 U/L (15-37) H Alanine Aminotransferase (ALT/SGPT) 251 U/L (12-78) H Alkaline Phosphatase 219 U/L (46-116) H Total Protein 6.3 G/DL (6.4-8.2) L Albumin 2.7 G/DL (3.4-5.0) L Globulin 3.6 g/dL Albumin/Globulin Ratio 0.8 (1.0-2.7) L Microbiology Date/Time Source Procedure Growth Status 02/19/20 14:40 Rectum Received Height (Feet): 5 Height (Inches): 4.00 Weight (Pounds): 153 Medications Current Medications Medications (Trade) Dose Ordered Sig/Bere Route PRN Reason Start Time Stop Time Status Last Admin Dose Admin Acetaminophen (Tylenol) 650 mg Q4H PRN GT Temp >100.5 02/19/20 22:00 03/20/20 21:59 Chlorhexidine Gluconate (Jane-Hex 2%) 1 applic DAILY@2000 TOPIC 02/20/20 20:00 05/20/20 19:59 Dopamine HCl/ Dextrose 250 ml @ 0 mls/hr Q24H IV 02/19/20 21:00 05/19/20 20:59 02/20/20 10:56 Levetiracetam 100 ml @ 400 mls/hr Q12HR IVPB 02/20/20 09:00 05/20/20 08:59 02/20/20 08:41 Lorazepam (Ativan 2mg/ml 1ml) 2 mg Q6H PRN IV For Seizures 02/19/20 22:00 02/26/20 21:59 Meropenem 1 gm/ Sodium Chloride 55 ml @ 110 mls/hr Q8HR IVPB 02/19/20 22:00 02/21/20 21:59 02/20/20 05:26 Norepinephrine Bitartrate 4 mg/ Dextrose 250 ml @ 0 mls/hr Q24H IV 02/19/20 12:45 03/20/20 12:44 02/20/20 02:26 Pantoprazole (Protonix) 40 mg DAILY IVP 02/20/20 09:00 03/21/20 08:59 02/20/20 08:41 Phenytoin 100 mg/ Sodium Chloride 57 ml @ 114 mls/hr [id number] PHENYTOIN IVPB 02/20/20 00:00 03/21/20 00:00 02/20/20 08:41 Potassium Chloride 100 ml @ 50 mls/hr ONCE ONCE IVPB 02/20/20 13:00 02/20/20 14:59 Potassium Chloride 100 ml @ 50 mls/hr ONCE ONCE IVPB 02/20/20 15:00 02/20/20 16:59 Propofol 100 ml @ 0 mls/hr Q24H IV 02/19/20 21:00 02/21/20 20:59 02/19/20 21:21 Sodium Chloride 1,000 ml @ 100 mls/hr Q10H IV 02/19/20 21:00 03/20/20 20:59 02/20/20 06:38 Vancomycin HCl (Vanco rx to dose) 1 ea DAILY PRN MISC Per rx protocol 02/19/20 21:15 03/20/20 21:14 Vancomycin HCl 1 gm/Sodium Chloride 275 ml @ 183.708 mls/hr Q12H IVPB 02/20/20 05:00 02/25/20 04:59 02/20/20 05:26 Assessment/Plan Problem List: (1) Pneumothorax Assessment & Plan: cont chest tube to suction am cxr will monitor 1. Left-sided pneumothorax, approximately 50% by volume. 2. Extensive subcutaneous emphysema throughout the chest wall and neck soft tissues bilaterally. s/p chest tube Lungs: Persistent mild increased interstitial markings. The lungs are otherwise clear without focal consolidation. Pleural space: Interval significant improvement of the left-sided pneumothorax, no longer well seen. Heart: Unremarkable. No cardiomegaly. Mediastinum: Unremarkable. Bones/joints: Unremarkable. Soft tissues: Persistent but improved subcutaneous emphysema in the chest reed and neck soft tissues bilaterally. Tubes, lines and devices: Left-sided chest tube in place, with expected positioning. Endotracheal tube tip 3.2 cm above the emerita. Telemetry leads overlie the thorax. IMPRESSION: 1. Left-sided chest tube in place, with expected positioning. 2. Interval significant improvement of the left-sided pneumothorax, which is no longer well seen. 3. Persistent mild increased interstitial markings. This is nonspecific but may suggest mild interstitial edema or a mild pneumonitis. No focal consolidation. 4. Improved subcutaneous emphysema in the chest reed and neck soft tissues bilaterally. ICD Codes: J93.9 - Pneumothorax, unspecified SNOMED: 24906270 (2) Respiratory arrest Assessment & Plan: TRACH REMOVED, SITE BLEEDING. LT CHEST TUNE TO SUCTION. FEMORAL ACCESS ICD Codes: R09.2 - Respiratory arrest SNOMED: 29604540 (3) Respiratory distress ICD Codes: R06.03 - Acute respiratory distress SNOMED: 972186777 (4) Tracheostomy complication Assessment & Plan: trach complication intubated on support will need to revise trach once stable thank you ICD Codes: J95.00 - Unspecified tracheostomy complication SNOMED: 28777594 Ant Lee February 20, 2020 13:11
[2020-02-20] MEDS ORDERED: Tubing IV Secondary IV ONE (15:51)
[2020-02-20] MEDS ORDERED: NS 275ml ONE (15:51)
--- NOTE | 2020-02-20 16:15 | Consultation ---
DATE OF CONSULTATION: 02/20/2020 PULMONARY CONSULTATION CONSULTING PHYSICIAN: Celestino Haile MD. HISTORY OF PRESENT ILLNESS: This is a 49-year-old female with a history of previous trach, PEG who presented with bleeding from a tracheostomy site. She was also hypoxic on arrival. Apparently, trach was being changed in the residential, but they were unable to oxygenate. She was sent to the hospital. Patient was subsequently seen in the emergency room and intubated. Currently, she is on , tidal volume 500, PEEP of 10, FiO2 now 60%. PAST HISTORY: Chronic trach and PEG, chronic encephalopathy, substance abuse, hypertension. HOME MEDICATIONS: Reviewed reconciled in chart. SOCIAL HISTORY: correction resident. REVIEW OF SYSTEMS: Not obtainable. PHYSICAL EXAMINATION: GENERAL: Reveals an obese female. HEENT: Unremarkable. She has a tracheostomy site with dressing in place. She is intubated orotracheally. CHEST: Decreased breath sounds bilaterally with normal heart sounds. ABDOMEN: Soft. EXTREMITIES: There is no edema. VITAL SIGNS: Blood pressure 110/70, heart rate is 110, respirations 20, she is afebrile. LABORATORY DATA: Lab testing showed white count 19.4, hemoglobin of 13, platelet count is normal. Potassium 6.1, glucose 338. Lactic acid 14, now 3.8. AST, ALT are elevated. Coags show INR of 0.9. ABG, pH 7.29, pCO2 43, pO2 89. Urinalysis, few wbc's. IMAGING STUDIES: X-ray chest was obtained, which shows increased interstitial markings. Patient also had a left-sided pneumothorax requiring chest tube placement. IMPRESSION: 1. Status post left pneumothorax with chest tube in place. 2. Tracheal bleeding, status post removal. 3. Respiratory failure, status post orotracheal intubation. 4. Transaminitis. 5. Leukocytosis. 6. Chronic encephalopathy. 7. Chronic respiratory failure. DISCUSSION: Admit to the hospital. Patient is critically ill. We will maintain assist-control mechanical ventilation. We will decrease PEEP as much as possible. Keep chest tube to suction. Broad-spectrum antibiotics. Enteral feedings. Continue medications. Follow carefully. Celestino Haile M.D. DR: LAURE JOB#: [id number] CC:
--- NOTE | 2020-02-20 20:44 | History and Physical Report ---
DATE OF ADMISSION: 02/20/2020 SUBJECTIVE: This is a elderly 49-year-old female came with acute cardiopulmonary arrest and was placed on ventilator. The patient also has a pneumothorax and Pulmonary consult was obtained, also required thoracic surgeon or general surgeon for chest tube. The patient is nonverbal, still multiple drips to keep blood pressure high. PAST MEDICAL HISTORY: Trach and PEG, chronic encephalopathy, substance abuse and hypertension. REVIEW OF SYSTEMS: Unable to obtain due to trach and PEG. PHYSICAL EXAMINATION: VITAL SIGNS: Blood pressure is still low 106/61, pulse 108, respirations 20s, the patient is on 50% oxygen. HEENT: Eyes are closed. Nonverbal. NECK: Supple. CHEST: Bilateral decreased breath sounds. CARDIOVASCULAR: Regular rhythm. No gallop. No murmur. ABDOMEN: Soft. EXTREMITIES: No edema. NEUROLOGICAL: Generalized weakness GENITOURINARY: Deferred. LABORATORY DATA: White counts are 20,000, hemoglobin 13, hematocrit 35, platelets 228. Chemistry panel, potassium 2.9, BUN 17, creatinine 0.8. Lactic acid is from now 1.90. Blood cultures results are pending. ASSESSMENT: 1. Septic shock. 2. Acute respiratory failure. 3. Cardiopulmonary arrest. PLAN: 1. We will currently continue current treatment. 2. Continue Protonix, Keppra, vancomycin, meropenem, ventilator, pulmonary treatment. 3. Pulmonary and ID is on consult. Darin Delgado M.D. DR: Eve JOB#: [id number] CC: SEBASTIEN
[2020-02-20] MEDS: Dyna-Hex 2% Top Sol 2oz TOPIC SCH (20:45)
[2020-02-20] MEDS: propofoL 1,000mg/100ml 100 ML IV SCH (20:45)
--- NOTE | 2020-02-20 21:29 | Consultation ---
DATE OF CONSULTATION: 02/20/2020 INFECTIOUS DISEASE CONSULTATION This consult is for coverage of Dr. Gurrola. CONSULTING PHYSICIAN: Prabhakar Guaman MD. PRIMARY ATTENDING: Sergio Delgado MD. REASON FOR CONSULT: Sepsis, bacteremia, pneumothorax. HISTORY OF PRESENT ILLNESS: This is a 49-year-old female admitted yesterday from a nursing facility because of complication of tracheostomy site. Patient had bleeding from tracheostomy after changing the tube. She was hypoxemic, has respiratory distress. Patient was orally intubated and admitted to ICU. On low-dose vasopressor. Blood culture is coming back gram-positive cocci. PAST MEDICAL HISTORY: Anoxic encephalopathy, hydrocephalus, seizure disorder, cholelithiasis, hypertension. PAST SURGICAL HISTORY: G-tube placement, tracheostomy. ALLERGIES: Allergic to penicillin. MEDICATIONS: Potassium chloride, Keppra, vancomycin, phenytoin, meropenem, sodium chloride, propofol, norepinephrine. SOCIAL HISTORY: care home resident. Single. No other history obtainable by the patient. PHYSICAL EXAMINATION: VITAL SIGNS: Temperature is 99.2, pulse is 108. Had tachycardia up to 139 in hospital. HEAD AND NECK: Orally intubated. HEART: Tachycardic. LUNGS: On mechanical ventilator. Left-sided chest tube. ABDOMEN: Soft. G-tube in place. EXTREMITIES: Has bilateral footdrop. NEUROLOGIC: Patient is on restraints. LABORATORY AND DIAGNOSTIC DATA: WBC 21.4, hemoglobin 12.6, hematocrit 35, platelets 225. Sodium 147, potassium 2.9, carbon dioxide 110, bicarbonate 26, BUN 17, creatinine 0.8, glucose 168. Lactic acid was 14.4 at the time of admission, today is 1.9. Had elevation of LFTs including AST, ALT, and alkaline phosphatase. Bilirubin is 1.2. UA showed wbc's of 5 to 10. Blood culture x1 gram-positive cocci in cluster. IMPRESSION: Sepsis with tachycardia and leukocytosis. Has bacteremia with gram-positive cocci. Has pneumothorax in chest x-ray on the left side due to status post chest tube placement. Has chronic respiratory failure, anoxic encephalopathy, hydrocephalus, seizure disorder, penicillin allergy, hypertension. RECOMMENDATION: To continue with meropenem and vancomycin. We will follow up the cultures. We will follow up the chest x-ray. We will follow up COVID-19 test. At the end of my exam, I thank Dr. Delgado, for involving me in the care of this patient. Prabhakar Guaman M.D. DR: DEBBIE JOB#: [id number] CC:
[2020-02-20] MEDS: Acetaminophen 650mg/20.3ml GT PRN (21:31)
[2020-02-21] VITALS (48 sets, daily range): BP systolic 60–123; BP diastolic 36–87
[2020-02-21] MEDS: Phenytoin 100 MG in NS 55 ML IVPB SCH ×3 (00:02→16:32)
[2020-02-21] MEDS: propofoL 1,000mg/100ml 100 ML IV SCH (01:33)
[2020-02-21] MEDS: DOPamine 400mg/250ml 250 ML IV SCH (03:10)
[2020-02-21 05:27] LABS: BASOPHILS % (AUTO) 0.3 % (0.0-2.0); EOSINOPHILS % (AUTO) 0.2 % (0.0-3.0); HEMATOCRIT 29.2 % (37.0-47.0); HEMOGLOBIN 10.5 G/DL (12.0-16.0); LYMPHOCYTES % (AUTO) 10.6 % (20.0-45.0); MEAN CORPUSCULAR VOLUME 89 FL (80-99); MONOCYTES % (AUTO) 4.7 % (1.0-10.0); NEUTROPHILS % (AUTO) 84.3 % (45.0-75.0); PLATELET COUNT 148 K/UL (150-450); RED BLOOD COUNT 3.29 M/UL (4.20-5.40); RED CELL DISTRIBUTION WIDTH 10.8 % (11.6-14.8); WHITE BLOOD COUNT 16.1 K/UL (4.8-10.8)
[2020-02-21] MEDS: Vancomycin 1 GM in NS 275 ML IVPB SCH ×3 (05:33→22:15)
[2020-02-21] MEDS: Meropenem 1gm in NS 55ml IVPB SCH ×3 (05:34→21:38)
[2020-02-21 05:58] LABS: ANION GAP 11 mmol/L (5-15); BLOOD UREA NITROGEN 11 mg/dL (7-18); CALCIUM 7.8 MG/DL (8.5-10.1); CARBON DIOXIDE 23 MMOL/L (21-32); CHLORIDE 109 MMOL/L (98-107); CREATININE 0.6 MG/DL (0.55-1.30); POTASSIUM 2.9 MMOL/L (3.5-5.1); SODIUM 143 MMOL/L (136-145); TRIGLYCERIDES 99 MG/DL (30-150)
[2020-02-21] MEDS: levETIRAcetam 500mg/NS100ml 100 ML IVPB SCH ×2 (08:45→21:38)
[2020-02-21] MEDS: Pantoprazole Inj IVP SCH (08:46)
--- NOTE | 2020-02-21 09:02 | Consultation ---
Consult Note Consult Note I am asked to evaluate the patient at the request of Dr. Delgado for fluid and electrolyte management 49-year-old female with trach PEG, presents due to bleeding from her trach and hypoxia prior to arrival the trach was being changed at assisted but they were unable to oxygenator or ventilate her because there was no air movement to the trach, they noticed copious amounts of blood, patient was emergently sent to the hospital for evaluation and treatment due to trach complication Allergies: PENICILLINS (Verified Allergy, Unknown, 02/14/18) COVID-19 Screening Contact w/high risk pt: No Recent Travel to affected area: No Experienced COVID-19 symptoms?: No COVID-19 Testing performed [employer]: No - unk COVID-19 Screening: PUI COVID-19 Limited by: medical condition - Trach and PEG Past Medical History: No History, Except For Hx Hypertension: Yes - METHAMPETHAMINE ABUSE Hx Gastrointestinal Problems: Yes - GASTROSTOMY Hx Neurological Problems: Yes - ENCEPHALOPATHY Hx Seizures: Yes Patient seen in ICU Data reviewed Discussed with RN Patient status is DNR Assessment/Plan HypoKalemia Proteinuria, hypoalbuminemia, BUN and creatinine within normal range Chronic respiratory failure Status post left pneumothorax with chest tube in place Transaminitis Leukocytosis Sepsis, bacteremia with gram-positive cocci Anoxic encephalopathy Seizure disorder Penicillin allergy Hypertension Suggestions IV potassium chloride supplement Check calcium and phosphorus and liver function tests Continue per ID and pulmonary Keep the blood pressure and blood sugar in check Per orders Erich Link MD February 21, 2020 09:02
[2020-02-21 09:22] LABS: ALANINE AMINOTRANSFERASE 177 U/L (12-78); ALBUMIN 2.3 G/DL (3.4-5.0); ALKALINE PHOSPHATASE 166 U/L (46-116); ASPARTATE AMINO TRANSFERASE 75 U/L (15-37); BILIRUBIN,DIRECT 0.5 MG/DL (0.0-0.3)
--- NOTE | 2020-02-21 09:26 | Diagnostic Imaging Report ---
Procedure: XRAY Chest 1v Reason for study: Shortness of breath Comparison films: 02/19/2020. FINDINGS: Endotracheal tube and left chest tube remain in place. There is decrease of chest wall emphysema. No pneumothorax seen presently. Vascularity is normal. Some haziness in the right infrahilar area noted either atelectasis versus early infiltrate. Left retrocardiac density is unchanged. Cardiac and mediastinal silhouette are within normal limits. CP angles are sharp. The bony thorax appear unremarkable. IMPRESSION: Decreased chest wall emphysema. No pneumothorax. No change left retrocardiac densities. Mild right infrahilar densities of atelectasis versus early infiltrate.
[2020-02-21 09:29] LABS: CHOLESTEROL 131 MG/DL (< 200); GAMMA GLUTAMYL TRANSPEPTIDASE 1146 U/L (5-85); HDL CHOLESTEROL 41 MG/DL (40-60); TRIGLYCERIDES 104 MG/DL (30-150)
--- NOTE | 2020-02-21 09:45 | Pulmonology Progress Note ---
Subjective Interval Events: None new; remains intubated Constitutional: Reports: no symptoms HEENT: Repors: no symptoms Respiratory: Reports: no symptoms Cardiovascular: Reports: no symptoms Gastrointestinal/Abdominal: Reports: no symptoms Allergies: Coded Allergies: PENICILLINS (Verified Allergy, Unknown, 02/14/18) Objective Last 24 Hour Vital Signs Date Time Temp Pulse Resp B/P (MAP) Pulse Ox O2 Delivery O2 Flow Rate FiO2 02/21/20 07:28 106 20 50 02/21/20 07:00 108 20 109/51 (70) 100 02/21/20 07:00 109/51 02/21/20 07:00 20 109/51 Mechanical Ventilator 02/21/20 07:00 109/51 02/21/20 06:30 104 20 02/21/20 06:15 97.8 104 19 122/87 (99) 100 02/21/20 06:00 98 17 123/55 (77) 94 02/21/20 06:00 122/87 02/21/20 06:00 19 122/87 Mechanical Ventilator 02/21/20 06:00 122/87 02/21/20 05:30 94 20 106/50 (68) 100 02/21/20 05:00 107/53 02/21/20 05:00 20 107/53 Mechanical Ventilator 02/21/20 05:00 107/53 02/21/20 05:00 95 20 107/59 (75) 100 02/21/20 04:30 104 20 109/54 (72) 100 02/21/20 04:00 50 02/21/20 04:00 98.9 97 20 100 02/21/20 04:00 Mechanical Ventilator 02/21/20 04:00 99 02/21/20 04:00 99/53 02/21/20 04:00 20 99/53 Mechanical Ventilator 02/21/20 04:00 99/53 02/21/20 03:30 104 20 99/55 (70) 100 02/21/20 03:10 90/50 02/21/20 03:05 114 20 50 02/21/20 03:00 106/55 02/21/20 03:00 20 106/55 Mechanical Ventilator 02/21/20 03:00 106/55 02/21/20 03:00 113 21 90/50 (63) 100 02/21/20 02:30 94 20 105/50 (68) 100 02/21/20 02:00 101 20 109/54 (72) 100 02/21/20 02:00 106/52 02/21/20 02:00 20 106/52 Mechanical Ventilator 02/21/20 02:00 106/52 02/21/20 01:33 20 111/53 Mechanical Ventilator 02/21/20 01:30 101 20 111/53 (72) 100 02/21/20 01:00 99.0 102 20 110/60 (77) 100 02/21/20 01:00 111/52 02/21/20 01:00 20 111/52 Mechanical Ventilator 02/21/20 01:00 111/52 02/21/20 00:30 102 20 110/60 (77) 100 02/21/20 00:00 Mechanical Ventilator 02/21/20 00:00 50 02/21/20 00:00 110/55 02/21/20 00:00 20 110/55 Mechanical Ventilator 02/21/20 00:00 110/55 02/21/20 00:00 101 02/21/20 00:00 99 20 113/56 (75) 100 02/20/20 23:30 103 16 111/58 (75) 100 02/20/20 23:00 103 15 118/62 (80) 99 02/20/20 23:00 114/58 02/20/20 23:00 20 114/58 Mechanical Ventilator 02/20/20 23:00 114/58 02/20/20 22:57 95 20 50 02/20/20 22:30 99.8 99 20 113/56 (75) 100 02/20/20 22:13 99.8 02/20/20 22:00 98 20 96/51 (66) 100 02/20/20 22:00 110/50 02/20/20 22:00 20 110/55 Mechanical Ventilator 02/20/20 22:00 110/55 02/20/20 21:30 101.1 98 20 116/54 (74) 100 02/20/20 21:13 113/59 02/20/20 21:00 101 20 113/59 (77) 100 02/20/20 21:00 113/54 02/20/20 21:00 20 113/54 Mechanical Ventilator 02/20/20 21:00 113/54 02/20/20 20:45 20 109/57 Mechanical Ventilator 02/20/20 20:30 98 20 109/57 (74) 100 02/20/20 20:00 Mechanical Ventilator 02/20/20 20:00 50 02/20/20 20:00 105/56 02/20/20 20:00 20 105/56 Mechanical Ventilator 02/20/20 20:00 105/56 02/20/20 20:00 97 02/20/20 20:00 96 20 105/56 (72) 100 02/20/20 19:30 97 20 102/60 (74) 100 02/20/20 19:08 98 20 50 02/20/20 19:01 115/67 02/20/20 19:00 99.6 100 20 107/69 (82) 100 02/20/20 19:00 100/58 02/20/20 19:00 20 100/58 Mechanical Ventilator 02/20/20 19:00 100/58 02/20/20 18:00 101 20 114/65 (81) 100 02/20/20 18:00 115/67 02/20/20 18:00 20 115/67 Mechanical Ventilator 50 02/20/20 18:00 115/67 02/20/20 17:45 114/65 02/20/20 17:30 99 20 110/63 (79) 100 02/20/20 17:30 117/67 02/20/20 17:15 110/63 02/20/20 17:00 111/63 02/20/20 17:00 20 111/63 Mechanical Ventilator 100 02/20/20 17:00 111/63 02/20/20 17:00 103 20 111/63 (79) 100 02/20/20 16:30 103 20 109/60 (76) 100 02/20/20 16:05 111/61 02/20/20 16:00 99 02/20/20 16:00 50 02/20/20 16:00 111/54 02/20/20 16:00 20 111/54 Mechanical Ventilator 50 02/20/20 16:00 111/54 02/20/20 16:00 101 20 111/54 (73) 98 02/20/20 16:00 99.4 101 20 111/54 (73) 98 02/20/20 16:00 Mechanical Ventilator 02/20/20 15:30 104 20 111/61 (78) 97 02/20/20 15:12 114 20 50 02/20/20 15:00 106 20 107/59 (75) 97 02/20/20 15:00 107/59 02/20/20 15:00 20 107/59 Mechanical Ventilator 50 02/20/20 15:00 107/59 02/20/20 14:30 110 20 114/69 (84) 97 02/20/20 14:00 109/59 02/20/20 14:00 20 109/59 Mechanical Ventilator 50 02/20/20 14:00 109/59 02/20/20 14:00 102 20 109/59 (76) 67 02/20/20 13:30 96 20 106/55 (72) 68 02/20/20 13:00 98 20 107/61 (76) 70 02/20/20 13:00 107/61 02/20/20 13:00 20 107/61 Mechanical Ventilator 50 02/20/20 13:00 107/61 02/20/20 12:45 106/61 02/20/20 12:30 98 20 107/53 (71) 70 02/20/20 12:00 100 02/20/20 12:00 Mechanical Ventilator 02/20/20 12:00 108/57 02/20/20 12:00 20 108/57 Mechanical Ventilator 50 02/20/20 12:00 108/57 02/20/20 12:00 99.0 102 20 108/57 (74) 83 02/20/20 12:00 102 20 108/57 (74) 83 02/20/20 12:00 50 02/20/20 11:30 111 20 107/61 (76) 83 02/20/20 11:22 108 20 50 02/20/20 11:00 106/61 02/20/20 11:00 20 106/61 Mechanical Ventilator 50 02/20/20 11:00 106/61 02/20/20 11:00 108 20 106/61 (76) 78 02/20/20 10:56 106/58 02/20/20 10:55 112/52 02/20/20 10:30 100 20 110/60 (77) 97 02/20/20 10:00 100 20 106/58 (74) 100 02/20/20 10:00 104/62 02/20/20 10:00 20 104/62 Mechanical Ventilator 50 02/20/20 10:00 62 Intake and Output 02/20/20 02/21/20 19:00 07:00 Intake Total 2591.283 ml 2085.866 ml Output Total 980 ml 1000 ml Balance 1611.283 ml 1085.866 ml Intake IV Total 2591.283 ml 2085.866 ml Output Urine Total 980 ml 1000 ml General Appearance: no acute distress HEENT: normocephalic Respiratory: chest wall non-tender, lungs clear Cardiovascular: normal peripheral pulses Abdomen: normal bowel sounds Microbiology Date/Time Source Procedure Growth Status 02/19/20 10:25 Blood Blood Culture - Preliminary Resulted 02/19/20 10:10 Blood Blood Culture - Preliminary Gram Positive Cocci Resulted 02/19/20 14:40 Nasal Nares MRSA Culture - Final NO METHICILLIN RESISTANT STAPH AUREUS... Complete 02/19/20 14:40 Rectum VRE Culture - Final Enterococcus Faecalis - Vre Complete Laboratory Tests 02/20/20 10:45: White Blood Count 21.4H, Red Blood Count 3.96L, Hemoglobin 12.6, Hematocrit 35.0L, Mean Corpuscular Volume 88, Mean Corpuscular Hemoglobin 31.8H, Mean Corpuscular Hemoglobin Concent 36.0, Red Cell Distribution Width 11.0L, Platelet Count 228, Mean Platelet Volume 8.1, Neutrophils (%) (Auto) , Lymphocytes (%) (Auto) , Monocytes (%) (Auto) , Eosinophils (%) (Auto) , Basophils (%) (Auto) , Differential Total Cells Counted 100, Neutrophils % ( Manual) 86H, Lymphocytes % (Manual) 9L, Monocytes % (Manual) 5, Eosinophils % ( Manual) 0, Basophils % (Manual) 0, Band Neutrophils 0, Platelet Estimate Adequate, Platelet Morphology Normal, Red Blood Cell Morphology Normal, Sodium Level 147H, Potassium Level 2.9#L, Chloride Level 110H, Carbon Dioxide Level 26 , Anion Gap 11, Blood Urea Nitrogen 17, Creatinine 0.8, Estimat Glomerular Filtration Rate > 60, Glucose Level 168#H, Lactic Acid Level 1.90, Calcium Level 8.0L, Total Bilirubin 1.2H, Direct Bilirubin 0.7H, Aspartate Amino Transf (AST/SGOT) 118H, Alanine Aminotransferase (ALT/SGPT) 251H, Alkaline Phosphatase 219H, Total Protein 6.3L, Albumin 2.7L, Globulin 3.6, Albumin/Globulin Ratio 0.8L 02/21/20 04:15: White Blood Count 16.1H, Red Blood Count 3.29L, Hemoglobin 10.5L, Hematocrit 29.2L, Mean Corpuscular Volume 89, Mean Corpuscular Hemoglobin 31.9H, Mean Corpuscular Hemoglobin Concent 36.0, Red Cell Distribution Width 10.8L, Platelet Count 148L, Mean Platelet Volume 7.8, Neutrophils (%) (Auto) 84.3H, Lymphocytes (%) (Auto) 10.6L, Monocytes (%) (Auto) 4.7, Eosinophils (%) (Auto) 0.2, Basophils (%) (Auto) 0.3, Sodium Level 143, Potassium Level 2.9L, Chloride Level 109H, Carbon Dioxide Level 23, Anion Gap 11, Blood Urea Nitrogen 11, Creatinine 0.6, Estimat Glomerular Filtration Rate > 60, Glucose Level 142H, Calcium Level 7.8L, Triglycerides Level 99, Vancomycin Level Trough 5.7 02/21/20 04:18: Total Bilirubin 1.0, Direct Bilirubin 0.5H, Aspartate Amino Transf (AST/SGOT) 75H, Alanine Aminotransferase (ALT/SGPT) 177H, Alkaline Phosphatase 166H, Total Protein 5.7L, Albumin 2.3L, Triglycerides Level 104, Hemoglobin A1c [Pending], Uric Acid 2.5L, Phosphorus Level 2.0L, Magnesium Level 1.6L, Gamma Glutamyl Transpeptidase 1146H, Cholesterol Level 131, LDL Cholesterol 62, HDL Cholesterol 41, Cholesterol/HDL Ratio 3.2L, Thyroid Stimulating Hormone (TSH) 0.134L 02/21/20 08:02: Arterial Blood pH 7.452H, Arterial Blood Partial Pressure CO2 31.7L, Arterial Blood Partial Pressure O2 106.9H, Arterial Blood HCO3 21.6L, Arterial Blood Oxygen Saturation 97.4, Arterial Blood Base Excess -1.6, Hung Test Positive Current Medications Medications (Trade) Dose Ordered Sig/Bere Route PRN Reason Start Time Stop Time Status Last Admin Dose Admin Acetaminophen (Tylenol) 650 mg Q4H PRN GT Temp >100.5 02/19/20 22:00 03/20/20 21:59 02/20/20 21:31 Chlorhexidine Gluconate (Jane-Hex 2%) 1 applic DAILY@2000 TOPIC 02/20/20 20:00 05/20/20 19:59 02/20/20 20:45 Dopamine HCl/ Dextrose 250 ml @ 0 mls/hr Q24H IV 02/19/20 21:00 05/19/20 20:59 02/21/20 03:10 Levetiracetam 100 ml @ 400 mls/hr Q12HR IVPB 02/20/20 09:00 05/20/20 08:59 02/21/20 08:45 Lorazepam (Ativan 2mg/ml 1ml) 2 mg Q6H PRN IV For Seizures 02/19/20 22:00 02/26/20 21:59 Meropenem 1 gm/ Sodium Chloride 55 ml @ 110 mls/hr Q8HR IVPB 02/19/20 22:00 02/24/20 21:59 02/21/20 05:34 Norepinephrine Bitartrate 4 mg/ Dextrose 250 ml @ 0 mls/hr Q24H IV 02/19/20 12:45 03/20/20 12:44 02/20/20 19:01 Pantoprazole (Protonix) 40 mg DAILY IVP 02/20/20 09:00 03/21/20 08:59 02/21/20 08:46 Phenytoin 100 mg/ Sodium Chloride 57 ml @ 114 mls/hr [id number] PHENYTOIN IVPB 02/20/20 00:00 03/21/20 00:00 02/21/20 08:45 Potassium Chloride 100 ml @ 50 mls/hr ONCE ONCE IVPB 02/21/20 09:00 02/21/20 10:59 02/21/20 08:47 Potassium Chloride 100 ml @ 50 mls/hr ONCE ONCE IVPB 02/21/20 11:00 02/21/20 12:59 Propofol 100 ml @ 0 mls/hr Q24H IV 02/19/20 21:00 02/21/20 20:59 02/21/20 01:33 Vancomycin HCl (Vanco rx to dose) 1 ea DAILY PRN MISC Per rx protocol 02/19/20 21:15 03/20/20 21:14 Vancomycin HCl 1 gm/Sodium Chloride 275 ml @ 183.708 mls/hr Q8H IVPB 02/21/20 14:00 02/26/20 13:59 Assessment/Plan Assessment/Plan IMPRESSION: 1. Status post left pneumothorax with chest tube in place. 2. Tracheal bleeding, status post removal. 3. Respiratory failure, status post orotracheal intubation. 4. Transaminitis. 5. Leukocytosis. 6. Chronic encephalopathy. 7. Chronic respiratory failure. DISCUSSION: Continue assist-control mechanical ventilation. I will decrease PEEP as much as possible. Keep chest tube to suction. Broad-spectrum antibiotics. Enteral feedings. Continue medications. Follow carefully. Seen by surgery; will need trach revision Celestino Haile M.D. Celestino Haile MD February 21, 2020 09:45
--- NOTE | 2020-02-21 10:30 | Progress Note ---
DATE: 02/19/2020 SUBJECTIVE: This is a 49-year-old female who has a chronic ventilator-dependent and chronic respiratory failure living at halfway, came to the emergency room for acute respiratory failure and distress. The patient was placed on a ventilator. Nonverbal and bedbound. Rule out COVID. PAST MEDICAL HISTORY: Atrial fibrillation, hydronephrosis, fever, abdominal distention, dysphagia, and seizures. MEDICATIONS: See the list. ALLERGIES: Allergic to Penicillin. PHYSICAL EXAMINATION: GENERAL: This is an elderly female who is currently nonverbal. VITAL SIGNS: Blood pressure is 88/46, pulse 121, respirations 20, temperature 98.1. HEENT: Eyes are closed. NECK: Supple. CHEST: Bilateral decreased breath sounds. CARDIOVASCULAR: Regular rhythm. Tachycardia. ABDOMEN: Soft. G-tube in place. EXTREMITIES: CCE. NEUROLOGICAL: Nonverbal. Bedbound. GENITOURINARY: Deferred. LABORATORY DATA: White counts are 20,000, hemoglobin 13, and hematocrit 33. Chemistry panel, sodium 140, potassium 6.1, BUN 13, creatinine 0.8. Lactic acid is . Troponins are . Chest x-ray is showing left-sided chest tube placed in expected position, significant left side pneumothorax persists, and mild increased interstitial markings and improved subcutaneous tissue bilaterally. ASSESSMENT: 1. Cardiopulmonary arrest. 2. Acute respiratory failure. 3. Sepsis. 4. Pneumonia. 5. Hypotension. PLAN: 1. We will currently continue Protonix, meropenem, and vancomycin. 2. Continue Levophed drip. 3. Poor prognosis. 4. I discussed with the charge nurse. Darin Delgado M.D. DR: JUDIE JOB#: [id number] CC:
[2020-02-21] MEDS: Acetaminophen 650mg/20.3ml GT PRN ×3 (10:51→22:01)
--- NOTE | 2020-02-21 11:01 | Cardiac Electrophysiology PN ---
Subjective Subjective [id number] Objective Last 24 Hour Vital Signs Date Time Temp Pulse Resp B/P (MAP) Pulse Ox O2 Delivery O2 Flow Rate FiO2 02/21/20 10:00 114 20 115/57 (76) 99 02/21/20 09:30 108 20 121/56 (77) 100 02/21/20 09:20 40 02/21/20 09:00 99 20 107/84 (92) 100 02/21/20 08:30 107 20 107/57 (74) 100 02/21/20 08:00 40 02/21/20 08:00 99.0 105 20 106/51 (69) 100 02/21/20 08:00 Mechanical Ventilator 02/21/20 07:28 106 20 50 02/21/20 07:00 108 20 109/51 (70) 100 02/21/20 07:00 109/51 02/21/20 07:00 20 109/51 Mechanical Ventilator 02/21/20 07:00 109/51 02/21/20 06:30 104 20 02/21/20 06:15 97.8 104 19 122/87 (99) 100 02/21/20 06:00 98 17 123/55 (77) 94 02/21/20 06:00 122/87 02/21/20 06:00 19 122/87 Mechanical Ventilator 02/21/20 06:00 122/87 02/21/20 05:30 94 20 106/50 (68) 100 02/21/20 05:00 107/53 02/21/20 05:00 20 107/53 Mechanical Ventilator 02/21/20 05:00 107/53 02/21/20 05:00 95 20 107/59 (75) 100 02/21/20 04:30 104 20 109/54 (72) 100 02/21/20 04:00 50 02/21/20 04:00 98.9 97 20 100 02/21/20 04:00 Mechanical Ventilator 02/21/20 04:00 99 02/21/20 04:00 99/53 02/21/20 04:00 20 99/53 Mechanical Ventilator 02/21/20 04:00 99/53 02/21/20 03:30 104 20 99/55 (70) 100 02/21/20 03:10 90/50 02/21/20 03:05 114 20 50 02/21/20 03:00 106/55 02/21/20 03:00 20 106/55 Mechanical Ventilator 02/21/20 03:00 106/55 02/21/20 03:00 113 21 90/50 (63) 100 02/21/20 02:30 94 20 105/50 (68) 100 02/21/20 02:00 101 20 109/54 (72) 100 02/21/20 02:00 106/52 02/21/20 02:00 20 106/52 Mechanical Ventilator 02/21/20 02:00 106/52 02/21/20 01:33 20 111/53 Mechanical Ventilator 02/21/20 01:30 101 20 111/53 (72) 100 02/21/20 01:00 99.0 102 20 110/60 (77) 100 02/21/20 01:00 111/52 02/21/20 01:00 20 111/52 Mechanical Ventilator 02/21/20 01:00 111/52 02/21/20 00:30 102 20 110/60 (77) 100 02/21/20 00:00 Mechanical Ventilator 02/21/20 00:00 50 02/21/20 00:00 110/55 02/21/20 00:00 20 110/55 Mechanical Ventilator 02/21/20 00:00 110/55 02/21/20 00:00 101 02/21/20 00:00 99 20 113/56 (75) 100 02/20/20 23:30 103 16 111/58 (75) 100 02/20/20 23:00 103 15 118/62 (80) 99 02/20/20 23:00 114/58 02/20/20 23:00 20 114/58 Mechanical Ventilator 02/20/20 23:00 114/58 02/20/20 22:57 95 20 50 02/20/20 22:30 99.8 99 20 113/56 (75) 100 02/20/20 22:13 99.8 02/20/20 22:00 98 20 96/51 (66) 100 02/20/20 22:00 110/50 02/20/20 22:00 20 110/55 Mechanical Ventilator 02/20/20 22:00 110/55 02/20/20 21:30 101.1 98 20 116/54 (74) 100 02/20/20 21:13 113/59 02/20/20 21:00 101 20 113/59 (77) 100 02/20/20 21:00 113/54 02/20/20 21:00 20 113/54 Mechanical Ventilator 02/20/20 21:00 113/54 02/20/20 20:45 20 109/57 Mechanical Ventilator 02/20/20 20:30 98 20 109/57 (74) 100 02/20/20 20:00 Mechanical Ventilator 02/20/20 20:00 50 02/20/20 20:00 105/56 02/20/20 20:00 20 105/56 Mechanical Ventilator 02/20/20 20:00 105/56 02/20/20 20:00 97 02/20/20 20:00 96 20 105/56 (72) 100 02/20/20 19:30 97 20 102/60 (74) 100 02/20/20 19:08 98 20 50 02/20/20 19:01 115/67 02/20/20 19:00 99.6 100 20 107/69 (82) 100 02/20/20 19:00 100/58 02/20/20 19:00 20 100/58 Mechanical Ventilator 02/20/20 19:00 100/58 02/20/20 18:00 101 20 114/65 (81) 100 02/20/20 18:00 115/67 02/20/20 18:00 20 115/67 Mechanical Ventilator 50 02/20/20 18:00 115/67 02/20/20 17:45 114/65 02/20/20 17:30 99 20 110/63 (79) 100 02/20/20 17:30 117/67 02/20/20 17:15 110/63 02/20/20 17:00 111/63 02/20/20 17:00 20 111/63 Mechanical Ventilator 100 02/20/20 17:00 111/63 02/20/20 17:00 103 20 111/63 (79) 100 02/20/20 16:30 103 20 109/60 (76) 100 02/20/20 16:05 111/61 02/20/20 16:00 99 02/20/20 16:00 50 02/20/20 16:00 111/54 02/20/20 16:00 20 111/54 Mechanical Ventilator 50 02/20/20 16:00 111/54 02/20/20 16:00 101 20 111/54 (73) 98 02/20/20 16:00 99.4 101 20 111/54 (73) 98 02/20/20 16:00 Mechanical Ventilator 02/20/20 15:30 104 20 111/61 (78) 97 02/20/20 15:12 114 20 50 02/20/20 15:00 106 20 107/59 (75) 97 02/20/20 15:00 107/59 02/20/20 15:00 20 107/59 Mechanical Ventilator 50 02/20/20 15:00 107/59 02/20/20 14:30 110 20 114/69 (84) 97 02/20/20 14:00 109/59 02/20/20 14:00 20 109/59 Mechanical Ventilator 50 02/20/20 14:00 109/59 02/20/20 14:00 102 20 109/59 (76) 67 02/20/20 13:30 96 20 106/55 (72) 68 02/20/20 13:00 98 20 107/61 (76) 70 02/20/20 13:00 107/61 02/20/20 13:00 20 107/61 Mechanical Ventilator 50 02/20/20 13:00 107/61 02/20/20 12:45 106/61 02/20/20 12:30 98 20 107/53 (71) 70 02/20/20 12:00 100 02/20/20 12:00 Mechanical Ventilator 02/20/20 12:00 108/57 02/20/20 12:00 20 108/57 Mechanical Ventilator 50 02/20/20 12:00 108/57 02/20/20 12:00 99.0 102 20 108/57 (74) 83 02/20/20 12:00 102 20 108/57 (74) 83 02/20/20 12:00 50 02/20/20 11:30 111 20 107/61 (76) 83 02/20/20 11:22 108 20 50 Intake and Output 02/20/20 02/21/20 19:00 07:00 Intake Total 2591.283 ml 2085.866 ml Output Total 980 ml 1000 ml Balance 1611.283 ml 1085.866 ml Intake IV Total 2591.283 ml 2085.866 ml Output Urine Total 980 ml 1000 ml Laboratory Tests Test 02/21/20 04:15 02/21/20 04:18 02/21/20 08:02 White Blood Count 16.1 K/UL (4.8-10.8) H Red Blood Count 3.29 M/UL (4.20-5.40) L Hemoglobin 10.5 G/DL (12.0-16.0) L Hematocrit 29.2 % (37.0-47.0) L Mean Corpuscular Volume 89 FL (80-99) Mean Corpuscular Hemoglobin 31.9 PG (27.0-31.0) H Mean Corpuscular Hemoglobin Concent 36.0 G/DL (32.0-36.0) Red Cell Distribution Width 10.8 % (11.6-14.8) L Platelet Count 148 K/UL (150-450) L Mean Platelet Volume 7.8 FL (6.5-10.1) Neutrophils (%) (Auto) 84.3 % (45.0-75.0) H Lymphocytes (%) (Auto) 10.6 % (20.0-45.0) L Monocytes (%) (Auto) 4.7 % (1.0-10.0) Eosinophils (%) (Auto) 0.2 % (0.0-3.0) Basophils (%) (Auto) 0.3 % (0.0-2.0) Sodium Level 143 MMOL/L (136-145) Potassium Level 2.9 MMOL/L (3.5-5.1) L Chloride Level 109 MMOL/L (98-107) H Carbon Dioxide Level 23 MMOL/L (21-32) Anion Gap 11 mmol/L (5-15) Blood Urea Nitrogen 11 mg/dL (7-18) Creatinine 0.6 MG/DL (0.55-1.30) Estimat Glomerular Filtration Rate > 60 mL/min (>60) Glucose Level 142 MG/DL (74-106) H Calcium Level 7.8 MG/DL (8.5-10.1) L Triglycerides Level 99 MG/DL (30-150) 104 MG/DL (30-150) Vancomycin Level Trough 5.7 ug/mL (5.0-12.0) Hemoglobin A1c 5.2 % (4.3-6.0) Uric Acid 2.5 MG/DL (2.6-7.2) L Phosphorus Level 2.0 MG/DL (2.5-4.9) L Magnesium Level 1.6 MG/DL (1.8-2.4) L Total Bilirubin 1.0 MG/DL (0.2-1.0) Direct Bilirubin 0.5 MG/DL (0.0-0.3) H Gamma Glutamyl Transpeptidase 1146 U/L (5-85) H Aspartate Amino Transf (AST/SGOT) 75 U/L (15-37) H Alanine Aminotransferase (ALT/SGPT) 177 U/L (12-78) H Alkaline Phosphatase 166 U/L (46-116) H Total Protein 5.7 G/DL (6.4-8.2) L Albumin 2.3 G/DL (3.4-5.0) L Cholesterol Level 131 MG/DL (< 200) LDL Cholesterol 62 mg/dL (<100) HDL Cholesterol 41 MG/DL (40-60) Cholesterol/HDL Ratio 3.2 (3.3-4.4) L Thyroid Stimulating Hormone (TSH) 0.134 uiU/mL (0.358-3.740) Arterial Blood pH 7.452 (7.350-7.450) Arterial Blood Partial Pressure CO2 31.7 mmHg (35.0-45.0) L Arterial Blood Partial Pressure O2 106.9 mmHg (75.0-100.0) H Arterial Blood HCO3 21.6 mmol/L (22.0-26.0) L Arterial Blood Oxygen Saturation 97.4 % (95-100) Arterial Blood Base Excess -1.6 (-2-2) Hung Test Positive Microbiology Date/Time Source Procedure Growth Status 02/19/20 10:25 Blood Blood Culture - Preliminary Resulted 02/19/20 10:10 Blood Blood Culture - Preliminary Gram Positive Cocci Resulted 02/19/20 14:40 Nasal Nares MRSA Culture - Final NO METHICILLIN RESISTANT STAPH AUREUS... Complete 02/19/20 14:40 Rectum VRE Culture - Final Enterococcus Faecalis - Vre Complete Dat Oh MD February 21, 2020 11:01
--- NOTE | 2020-02-21 11:40 | Infectious Diseases Prog Note ---
Assessment/Plan Assessment/Plan antibiotics : vancomycin iv, meropenem A 1. pneumonia r/o COVID 19 on FiO2 40 percent, PEEP 5, 99 percent saturation 2. respiratory failure 3. shock 4. gram positive sepsis 5. pneumothorax 6. hypertension 7. hydrocephalus P 1. continue iv vancomycin, meropenem 2. will follow up culture 3. continue isolation Subjective ROS Limited/Unobtainable: Yes Allergies: Coded Allergies: PENICILLINS (Verified Allergy, Unknown, 02/14/18) Objective Vital Signs Last 24 Hour Vital Signs Date Time Temp Pulse Resp B/P (MAP) Pulse Ox O2 Delivery O2 Flow Rate FiO2 02/21/20 10:00 114 20 115/57 (76) 99 02/21/20 09:30 108 20 121/56 (77) 100 02/21/20 09:20 40 02/21/20 09:00 99 20 107/84 (92) 100 02/21/20 08:30 107 20 107/57 (74) 100 02/21/20 08:00 40 02/21/20 08:00 99.0 105 20 106/51 (69) 100 02/21/20 08:00 Mechanical Ventilator 02/21/20 07:28 106 20 50 02/21/20 07:00 108 20 109/51 (70) 100 02/21/20 07:00 109/51 02/21/20 07:00 20 109/51 Mechanical Ventilator 02/21/20 07:00 109/51 02/21/20 06:30 104 20 02/21/20 06:15 97.8 104 19 122/87 (99) 100 02/21/20 06:00 98 17 123/55 (77) 94 02/21/20 06:00 122/87 02/21/20 06:00 19 122/87 Mechanical Ventilator 02/21/20 06:00 122/87 02/21/20 05:30 94 20 106/50 (68) 100 02/21/20 05:00 107/53 02/21/20 05:00 20 107/53 Mechanical Ventilator 02/21/20 05:00 107/53 02/21/20 05:00 95 20 107/59 (75) 100 02/21/20 04:30 104 20 109/54 (72) 100 02/21/20 04:00 50 02/21/20 04:00 98.9 97 20 100 02/21/20 04:00 Mechanical Ventilator 02/21/20 04:00 99 02/21/20 04:00 99/53 02/21/20 04:00 20 99/53 Mechanical Ventilator 02/21/20 04:00 99/53 02/21/20 03:30 104 20 99/55 (70) 100 02/21/20 03:10 90/50 02/21/20 03:05 114 20 50 02/21/20 03:00 106/55 02/21/20 03:00 20 106/55 Mechanical Ventilator 02/21/20 03:00 106/55 02/21/20 03:00 113 21 90/50 (63) 100 02/21/20 02:30 94 20 105/50 (68) 100 02/21/20 02:00 101 20 109/54 (72) 100 02/21/20 02:00 106/52 02/21/20 02:00 20 106/52 Mechanical Ventilator 02/21/20 02:00 106/52 02/21/20 01:33 20 111/53 Mechanical Ventilator 02/21/20 01:30 101 20 111/53 (72) 100 02/21/20 01:00 99.0 102 20 110/60 (77) 100 02/21/20 01:00 111/52 02/21/20 01:00 20 111/52 Mechanical Ventilator 02/21/20 01:00 111/52 02/21/20 00:30 102 20 110/60 (77) 100 02/21/20 00:00 Mechanical Ventilator 02/21/20 00:00 50 02/21/20 00:00 110/55 02/21/20 00:00 20 110/55 Mechanical Ventilator 02/21/20 00:00 110/55 02/21/20 00:00 101 02/21/20 00:00 99 20 113/56 (75) 100 02/20/20 23:30 103 16 111/58 (75) 100 02/20/20 23:00 103 15 118/62 (80) 99 02/20/20 23:00 114/58 02/20/20 23:00 20 114/58 Mechanical Ventilator 02/20/20 23:00 114/58 02/20/20 22:57 95 20 50 02/20/20 22:30 99.8 99 20 113/56 (75) 100 5/17/20 22:13 99.8 02/20/20 22:00 98 20 96/51 (66) 100 02/20/20 22:00 110/50 02/20/20 22:00 20 110/55 Mechanical Ventilator 02/20/20 22:00 110/55 02/20/20 21:30 101.1 98 20 116/54 (74) 100 02/20/20 21:13 113/59 02/20/20 21:00 101 20 113/59 (77) 100 02/20/20 21:00 113/54 02/20/20 21:00 20 113/54 Mechanical Ventilator 02/20/20 21:00 113/54 02/20/20 20:45 20 109/57 Mechanical Ventilator 02/20/20 20:30 98 20 109/57 (74) 100 02/20/20 20:00 Mechanical Ventilator 02/20/20 20:00 50 02/20/20 20:00 105/56 02/20/20 20:00 20 105/56 Mechanical Ventilator 02/20/20 20:00 105/56 02/20/20 20:00 97 02/20/20 20:00 96 20 105/56 (72) 100 02/20/20 19:30 97 20 102/60 (74) 100 02/20/20 19:08 98 20 50 02/20/20 19:01 115/67 02/20/20 19:00 99.6 100 20 107/69 (82) 100 02/20/20 19:00 100/58 02/20/20 19:00 20 100/58 Mechanical Ventilator 02/20/20 19:00 100/58 02/20/20 18:00 101 20 114/65 (81) 100 02/20/20 18:00 115/67 02/20/20 18:00 20 115/67 Mechanical Ventilator 50 02/20/20 18:00 115/67 02/20/20 17:45 114/65 02/20/20 17:30 99 20 110/63 (79) 100 02/20/20 17:30 117/67 02/20/20 17:15 110/63 02/20/20 17:00 111/63 02/20/20 17:00 20 111/63 Mechanical Ventilator 100 02/20/20 17:00 111/63 02/20/20 17:00 103 20 111/63 (79) 100 02/20/20 16:30 103 20 109/60 (76) 100 02/20/20 16:05 111/61 02/20/20 16:00 99 02/20/20 16:00 50 02/20/20 16:00 111/54 02/20/20 16:00 20 111/54 Mechanical Ventilator 50 02/20/20 16:00 111/54 02/20/20 16:00 101 20 111/54 (73) 98 02/20/20 16:00 99.4 101 20 111/54 (73) 98 02/20/20 16:00 Mechanical Ventilator 02/20/20 15:30 104 20 111/61 (78) 97 02/20/20 15:12 114 20 50 02/20/20 15:00 106 20 107/59 (75) 97 02/20/20 15:00 107/59 02/20/20 15:00 20 107/59 Mechanical Ventilator 50 02/20/20 15:00 107/59 02/20/20 14:30 110 20 114/69 (84) 97 02/20/20 14:00 109/59 02/20/20 14:00 20 109/59 Mechanical Ventilator 50 02/20/20 14:00 109/59 02/20/20 14:00 102 20 109/59 (76) 67 02/20/20 13:30 96 20 106/55 (72) 68 02/20/20 13:00 98 20 107/61 (76) 70 02/20/20 13:00 107/61 02/20/20 13:00 20 107/61 Mechanical Ventilator 50 02/20/20 13:00 107/61 02/20/20 12:45 106/61 02/20/20 12:30 98 20 107/53 (71) 70 02/20/20 12:00 100 02/20/20 12:00 Mechanical Ventilator 02/20/20 12:00 108/57 02/20/20 12:00 20 108/57 Mechanical Ventilator 50 02/20/20 12:00 108/57 02/20/20 12:00 99.0 102 20 108/57 (74) 83 02/20/20 12:00 102 20 108/57 (74) 83 02/20/20 12:00 50 Height (Feet): 5 Height (Inches): 4.00 Weight (Pounds): 152 HEENT: other - intubated Microbiology Date/Time Source Procedure Growth Status 02/19/20 10:25 Blood Blood Culture - Preliminary Resulted 02/19/20 10:10 Blood Blood Culture - Preliminary Gram Positive Cocci Resulted 02/19/20 14:40 Nasal Nares MRSA Culture - Final NO METHICILLIN RESISTANT STAPH AUREUS... Complete 02/19/20 14:40 Rectum VRE Culture - Final Enterococcus Faecalis - Vre Complete Laboratory Tests Test 02/21/20 04:15 02/21/20 04:18 02/21/20 08:02 White Blood Count 16.1 K/UL (4.8-10.8) H Red Blood Count 3.29 M/UL (4.20-5.40) L Hemoglobin 10.5 G/DL (12.0-16.0) L Hematocrit 29.2 % (37.0-47.0) L Mean Corpuscular Volume 89 FL (80-99) Mean Corpuscular Hemoglobin 31.9 PG (27.0-31.0) H Mean Corpuscular Hemoglobin Concent 36.0 G/DL (32.0-36.0) Red Cell Distribution Width 10.8 % (11.6-14.8) L Platelet Count 148 K/UL (150-450) L Mean Platelet Volume 7.8 FL (6.5-10.1) Neutrophils (%) (Auto) 84.3 % (45.0-75.0) H Lymphocytes (%) (Auto) 10.6 % (20.0-45.0) L Monocytes (%) (Auto) 4.7 % (1.0-10.0) Eosinophils (%) (Auto) 0.2 % (0.0-3.0) Basophils (%) (Auto) 0.3 % (0.0-2.0) Sodium Level 143 MMOL/L (136-145) Potassium Level 2.9 MMOL/L (3.5-5.1) L Chloride Level 109 MMOL/L (98-107) H Carbon Dioxide Level 23 MMOL/L (21-32) Anion Gap 11 mmol/L (5-15) Blood Urea Nitrogen 11 mg/dL (7-18) Creatinine 0.6 MG/DL (0.55-1.30) Estimat Glomerular Filtration Rate > 60 mL/min (>60) Glucose Level 142 MG/DL (74-106) H Calcium Level 7.8 MG/DL (8.5-10.1) L Triglycerides Level 99 MG/DL (30-150) 104 MG/DL (30-150) Vancomycin Level Trough 5.7 ug/mL (5.0-12.0) Hemoglobin A1c 5.2 % (4.3-6.0) Uric Acid 2.5 MG/DL (2.6-7.2) L Phosphorus Level 2.0 MG/DL (2.5-4.9) L Magnesium Level 1.6 MG/DL (1.8-2.4) L Total Bilirubin 1.0 MG/DL (0.2-1.0) Direct Bilirubin 0.5 MG/DL (0.0-0.3) H Gamma Glutamyl Transpeptidase 1146 U/L (5-85) H Aspartate Amino Transf (AST/SGOT) 75 U/L (15-37) H Alanine Aminotransferase (ALT/SGPT) 177 U/L (12-78) H Alkaline Phosphatase 166 U/L (46-116) H Total Protein 5.7 G/DL (6.4-8.2) L Albumin 2.3 G/DL (3.4-5.0) L Cholesterol Level 131 MG/DL (< 200) LDL Cholesterol 62 mg/dL (<100) HDL Cholesterol 41 MG/DL (40-60) Cholesterol/HDL Ratio 3.2 (3.3-4.4) L Thyroid Stimulating Hormone (TSH) 0.134 uiU/mL (0.358-3.740) Arterial Blood pH 7.452 (7.350-7.450) Arterial Blood Partial Pressure CO2 31.7 mmHg (35.0-45.0) L Arterial Blood Partial Pressure O2 106.9 mmHg (75.0-100.0) H Arterial Blood HCO3 21.6 mmol/L (22.0-26.0) L Arterial Blood Oxygen Saturation 97.4 % (95-100) Arterial Blood Base Excess -1.6 (-2-2) Hung Test Positive Current Medications Medications (Trade) Dose Ordered Sig/Bere Route PRN Reason Start Time Stop Time Status Last Admin Dose Admin Acetaminophen (Tylenol) 650 mg Q4H PRN GT Temp >100.5 02/19/20 22:00 03/20/20 21:59 02/21/20 10:51 Chlorhexidine Gluconate (Jane-Hex 2%) 1 applic DAILY@2000 TOPIC 02/20/20 20:00 05/20/20 19:59 02/20/20 20:45 Dopamine HCl/ Dextrose 250 ml @ 0 mls/hr Q24H IV 02/19/20 21:00 05/19/20 20:59 02/21/20 03:10 Levetiracetam 100 ml @ 400 mls/hr Q12HR IVPB 02/20/20 09:00 05/20/20 08:59 02/21/20 08:45 Lorazepam (Ativan 2mg/ml 1ml) 2 mg Q6H PRN IV For Seizures 02/19/20 22:00 02/26/20 21:59 Meropenem 1 gm/ Sodium Chloride 55 ml @ 110 mls/hr Q8HR IVPB 02/19/20 22:00 02/24/20 21:59 02/21/20 05:34 Norepinephrine Bitartrate 4 mg/ Dextrose 250 ml @ 0 mls/hr Q24H IV 02/19/20 12:45 03/20/20 12:44 02/20/20 19:01 Pantoprazole (Protonix) 40 mg DAILY IVP 02/20/20 09:00 03/21/20 08:59 02/21/20 08:46 Phenytoin 100 mg/ Sodium Chloride 57 ml @ 114 mls/hr P2EP-EJ PHENYTOIN IVPB 02/20/20 00:00 03/21/20 00:00 02/21/20 08:45 Potassium Chloride 100 ml @ 50 mls/hr ONCE ONCE IVPB 02/21/20 11:00 02/21/20 12:59 02/21/20 10:51 Propofol 100 ml @ 0 mls/hr Q24H IV 02/19/20 21:00 02/21/20 20:59 02/21/20 01:33 Vancomycin HCl (Vanco rx to dose) 1 ea DAILY PRN MISC Per rx protocol 02/19/20 21:15 03/20/20 21:14 Vancomycin HCl 1 gm/Sodium Chloride 275 ml @ 183.708 mls/hr Q8H IVPB 02/21/20 14:00 02/26/20 13:59 Lulu Gurrola MD February 21, 2020 11:40
--- NOTE | 2020-02-21 17:15 | Consultation ---
DATE OF CONSULTATION: 02/21/2020 CARDIOLOGY CONSULTATION CONSULTING PHYSICIAN: Dat Oh MD. REFERRING PHYSICIAN: Sergio Delgado MD. REASON FOR CONSULTATION: Respiratory failure, hypotension, atrial fibrillation. HISTORY OF PRESENT ILLNESS: Patient is a 49-year-old lady who is nonverbal with history of trach and PEG who was brought from longterm for bleeding from tracheostomy site as well as hypoxia. In the emergency room, patient was not able to oxygenate and was intubated. Currently, patient is in intensive care unit on tidal volume 500, PEEP of 10, FiO2 of 60%. Patient also has history of paroxysmal atrial fibrillation. Patient also has become hypotensive and currently on pressors as well. REVIEW OF SYSTEMS: Cannot be obtained. PAST MEDICAL HISTORY: As mentioned above. Also includes substance abuse. MEDICATIONS: Per reconciliation. SOCIAL HISTORY: skilled nursing resident. PHYSICAL EXAMINATION: VITAL SIGNS: Show blood pressure of 115/57, pulse 114, respirations 20. HEAD AND NECK: Shows orally intubated and history of tracheostomy. LUNGS: Coarse rhonchi. CARDIOVASCULAR: Regular S1 and S2 with no gallop. She has a chest tube. ABDOMEN: Soft. EXTREMITIES: 1+ pitting edema. LABORATORY DATA: Labs show sodium 140, potassium 6.1, BUN of 13, creatinine 0.8 and glucose of 338. First troponin is negative. White count was 19.4 and increased to 21.4, hemoglobin 10, hematocrit 29, and platelet count of 148. INR is 0.9. ASSESSMENT AND PLAN: 1. Respiratory failure. Patient is currently orally intubated. Further evaluation by Dr. Haile. 2. Paroxysmal atrial fibrillation, currently off anticoagulation in view of bleeding from the trach site. Repeat the EKG. 3. Pneumothorax, status post chest tube placement on broad-spectrum IV antibiotic. 4. Hypotension, on Levophed and dopamine as well as IV antibiotic. 5. Dysphagia, status post PEG placement. 6. Dementia. 7. Hypernatremia. Sodium 140. This patient is on IV fluids. 8. Status post left pneumothorax with chest tube in place. Patient has tracheal bleeding, status post removal. 9. Chronic encephalopathy. Thank you very much, Dr. Delgado, for allowing me to participate in the care of this patient. Please do not hesitate to contact me for any questions regarding my evaluation. Dat Oh M.D. DR: RAFAELA JOB#: [id number] CC:
--- NOTE | 2020-02-21 18:54 | Surgery Progress Note ---
Surgery Progress Note Subjective Additional Comments cont chest tube on support weaning vent will plan revision soon Objective Last 24 Hour Vital Signs Date Time Temp Pulse Resp B/P (MAP) Pulse Ox O2 Delivery O2 Flow Rate FiO2 02/21/20 18:15 119 23 85/45 (58) 100 02/21/20 18:00 120 21 81/36 (51) 100 02/21/20 17:35 100.0 02/21/20 17:30 128 26 104/44 (64) 100 02/21/20 17:00 125 23 101/49 (66) 100 02/21/20 16:30 125 24 103/52 (69) 100 02/21/20 16:00 40 02/21/20 16:00 128 23 111/85 (94) 97 02/21/20 16:00 Mechanical Ventilator 02/21/20 15:30 128 23 113/63 (80) 96 02/21/20 15:00 126 22 109/45 (66) 99 02/21/20 14:58 125 24 40 02/21/20 14:30 130 22 98/48 (65) 100 02/21/20 14:00 135 26 117/75 (89) 87 02/21/20 13:30 120 24 93/65 (74) 98 02/21/20 13:00 114 20 111/73 (86) 100 02/21/20 12:30 115 23 97/50 (66) 99 02/21/20 12:00 100.0 115 21 94/49 (64) 98 02/21/20 12:00 Mechanical Ventilator 02/21/20 12:00 40 02/21/20 11:30 117 21 96/47 (63) 99 02/21/20 11:04 118 22 40 02/21/20 11:00 22 101/59 Mechanical Ventilator 40 02/21/20 11:00 101/59 02/21/20 11:00 118 20 103/48 (66) 99 02/21/20 10:30 109 20 112/53 (72) 100 02/21/20 10:00 20 116/56 Mechanical Ventilator 40 02/21/20 10:00 116/56 02/21/20 10:00 114 20 115/57 (76) 99 02/21/20 09:45 115/57 02/21/20 09:30 108 20 121/56 (77) 100 02/21/20 09:30 107/70 02/21/20 09:20 40 02/21/20 09:15 121/56 02/21/20 09:00 99 20 107/84 (92) 100 02/21/20 09:00 130/90 02/21/20 09:00 22 130/90 Mechanical Ventilator 40 02/21/20 09:00 130/90 02/21/20 08:30 107 20 107/57 (74) 100 02/21/20 08:00 40 02/21/20 08:00 97/65 02/21/20 08:00 20 97/65 Mechanical Ventilator 40 02/21/20 08:00 97/65 02/21/20 08:00 99.0 105 20 106/51 (69) 100 02/21/20 08:00 Mechanical Ventilator 02/21/20 07:28 106 20 50 02/21/20 07:00 108 20 109/51 (70) 100 02/21/20 07:00 109/51 02/21/20 07:00 20 109/51 Mechanical Ventilator 02/21/20 07:00 109/51 02/21/20 06:30 104 20 02/21/20 06:15 97.8 104 19 122/87 (99) 100 02/21/20 06:00 98 17 123/55 (77) 94 02/21/20 06:00 122/87 02/21/20 06:00 19 122/87 Mechanical Ventilator 02/21/20 06:00 122/87 02/21/20 05:30 94 20 106/50 (68) 100 02/21/20 05:00 107/53 02/21/20 05:00 20 107/53 Mechanical Ventilator 02/21/20 05:00 107/53 02/21/20 05:00 95 20 107/59 (75) 100 02/21/20 04:30 104 20 109/54 (72) 100 02/21/20 04:00 50 02/21/20 04:00 98.9 97 20 100 02/21/20 04:00 Mechanical Ventilator 02/21/20 04:00 99 02/21/20 04:00 99/53 02/21/20 04:00 20 99/53 Mechanical Ventilator 02/21/20 04:00 99/53 02/21/20 03:30 104 20 99/55 (70) 100 02/21/20 03:10 90/50 02/21/20 03:05 114 20 50 02/21/20 03:00 106/55 02/21/20 03:00 20 106/55 Mechanical Ventilator 02/21/20 03:00 106/55 02/21/20 03:00 113 21 90/50 (63) 100 02/21/20 02:30 94 20 105/50 (68) 100 02/21/20 02:00 101 20 109/54 (72) 100 02/21/20 02:00 106/52 02/21/20 02:00 20 106/52 Mechanical Ventilator 02/21/20 02:00 106/52 02/21/20 01:33 20 111/53 Mechanical Ventilator 02/21/20 01:30 101 20 111/53 (72) 100 02/21/20 01:00 99.0 102 20 110/60 (77) 100 02/21/20 01:00 111/52 02/21/20 01:00 20 111/52 Mechanical Ventilator 02/21/20 01:00 111/52 02/21/20 00:30 102 20 110/60 (77) 100 02/21/20 00:00 Mechanical Ventilator 02/21/20 00:00 50 02/21/20 00:00 110/55 02/21/20 00:00 20 110/55 Mechanical Ventilator 02/21/20 00:00 110/55 02/21/20 00:00 101 02/21/20 00:00 99 20 113/56 (75) 100 02/20/20 23:30 103 16 111/58 (75) 100 02/20/20 23:00 103 15 118/62 (80) 99 02/20/20 23:00 114/58 02/20/20 23:00 20 114/58 Mechanical Ventilator 02/20/20 23:00 114/58 02/20/20 22:57 95 20 50 02/20/20 22:30 99.8 99 20 113/56 (75) 100 02/20/20 22:00 98 20 96/51 (66) 100 02/20/20 22:00 110/50 02/20/20 22:00 20 110/55 Mechanical Ventilator 02/20/20 22:00 110/55 02/20/20 21:30 101.1 98 20 116/54 (74) 100 02/20/20 21:13 113/59 02/20/20 21:00 101 20 113/59 (77) 100 02/20/20 21:00 113/54 02/20/20 21:00 20 113/54 Mechanical Ventilator 02/20/20 21:00 113/54 02/20/20 20:45 20 109/57 Mechanical Ventilator 02/20/20 20:30 98 20 109/57 (74) 100 02/20/20 20:00 Mechanical Ventilator 02/20/20 20:00 50 02/20/20 20:00 105/56 02/20/20 20:00 20 105/56 Mechanical Ventilator 02/20/20 20:00 105/56 02/20/20 20:00 97 02/20/20 20:00 96 20 105/56 (72) 100 02/20/20 19:30 97 20 102/60 (74) 100 02/20/20 19:08 98 20 50 02/20/20 19:01 115/67 02/20/20 19:00 99.6 100 20 107/69 (82) 100 02/20/20 19:00 100/58 02/20/20 19:00 20 100/58 Mechanical Ventilator 02/20/20 19:00 100/58 I&O Intake and Output 02/20/20 02/21/20 19:00 07:00 Intake Total 2591.283 ml 2085.866 ml Output Total 980 ml 1000 ml Balance 1611.283 ml 1085.866 ml IV Total 2591.283 ml 2085.866 ml Output Urine Total 980 ml 1000 ml Dressing: other Wound: other Drains: other Cardiovascular: RSR Respiratory: decreased breath sounds Abdomen: soft, present bowel sounds Extremities: no cyanosis Laboratory Tests Test 02/21/20 04:15 02/21/20 04:18 02/21/20 08:02 02/21/20 11:25 White Blood Count 16.1 K/UL (4.8-10.8) H Red Blood Count 3.29 M/UL (4.20-5.40) L Hemoglobin 10.5 G/DL (12.0-16.0) L Hematocrit 29.2 % (37.0-47.0) L Mean Corpuscular Volume 89 FL (80-99) Mean Corpuscular Hemoglobin 31.9 PG (27.0-31.0) H Mean Corpuscular Hemoglobin Concent 36.0 G/DL (32.0-36.0) Red Cell Distribution Width 10.8 % (11.6-14.8) L Platelet Count 148 K/UL (150-450) L Mean Platelet Volume 7.8 FL (6.5-10.1) Neutrophils (%) (Auto) 84.3 % (45.0-75.0) H Lymphocytes (%) (Auto) 10.6 % (20.0-45.0) L Monocytes (%) (Auto) 4.7 % (1.0-10.0) Eosinophils (%) (Auto) 0.2 % (0.0-3.0) Basophils (%) (Auto) 0.3 % (0.0-2.0) Sodium Level 143 MMOL/L (136-145) Potassium Level 2.9 MMOL/L (3.5-5.1) L Chloride Level 109 MMOL/L (98-107) H Carbon Dioxide Level 23 MMOL/L (21-32) Anion Gap 11 mmol/L (5-15) Blood Urea Nitrogen 11 mg/dL (7-18) Creatinine 0.6 MG/DL (0.55-1.30) Estimat Glomerular Filtration Rate > 60 mL/min (>60) Glucose Level 142 MG/DL (74-106) H Calcium Level 7.8 MG/DL (8.5-10.1) L Triglycerides Level 99 MG/DL (30-150) 104 MG/DL (30-150) Vancomycin Level Trough 5.7 ug/mL (5.0-12.0) Hemoglobin A1c 5.2 % (4.3-6.0) Uric Acid 2.5 MG/DL (2.6-7.2) L Phosphorus Level 2.0 MG/DL (2.5-4.9) L Magnesium Level 1.6 MG/DL (1.8-2.4) L Total Bilirubin 1.0 MG/DL (0.2-1.0) Direct Bilirubin 0.5 MG/DL (0.0-0.3) H Gamma Glutamyl Transpeptidase 1146 U/L (5-85) H Aspartate Amino Transf (AST/SGOT) 75 U/L (15-37) H Alanine Aminotransferase (ALT/SGPT) 177 U/L (12-78) H Alkaline Phosphatase 166 U/L (46-116) H Total Protein 5.7 G/DL (6.4-8.2) L Albumin 2.3 G/DL (3.4-5.0) L Cholesterol Level 131 MG/DL (< 200) LDL Cholesterol 62 mg/dL (<100) HDL Cholesterol 41 MG/DL (40-60) Cholesterol/HDL Ratio 3.2 (3.3-4.4) L Thyroid Stimulating Hormone (TSH) 0.134 uiU/mL (0.358-3.740) Arterial Blood pH 7.452 (7.350-7.450) Arterial Blood Partial Pressure CO2 31.7 mmHg (35.0-45.0) L Arterial Blood Partial Pressure O2 106.9 mmHg (75.0-100.0) H Arterial Blood HCO3 21.6 mmol/L (22.0-26.0) L Arterial Blood Oxygen Saturation 97.4 % (95-100) Arterial Blood Base Excess -1.6 (-2-2) Hung Test Positive Troponin I 0.003 ng/mL (0.000-0.056) Test 02/21/20 18:32 Troponin I Pending Plan Problems: (1) Pneumothorax Assessment & Plan: cont chest tube to suction am cxr will monitor 1. Left-sided pneumothorax, approximately 50% by volume. 2. Extensive subcutaneous emphysema throughout the chest wall and neck soft tissues bilaterally. s/p chest tube Lungs: Persistent mild increased interstitial markings. The lungs are otherwise clear without focal consolidation. Pleural space: Interval significant improvement of the left-sided pneumothorax, no longer well seen. Heart: Unremarkable. No cardiomegaly. Mediastinum: Unremarkable. Bones/joints: Unremarkable. Soft tissues: Persistent but improved subcutaneous emphysema in the chest reed and neck soft tissues bilaterally. Tubes, lines and devices: Left-sided chest tube in place, with expected positioning. Endotracheal tube tip 3.2 cm above the emerita. Telemetry leads overlie the thorax. IMPRESSION: 1. Left-sided chest tube in place, with expected positioning. 2. Interval significant improvement of the left-sided pneumothorax, which is no longer well seen. 3. Persistent mild increased interstitial markings. This is nonspecific but may suggest mild interstitial edema or a mild pneumonitis. No focal consolidation. 4. Improved subcutaneous emphysema in the chest reed and neck soft tissues bilaterally. (2) Respiratory arrest Assessment & Plan: TRACH REMOVED, SITE BLEEDING. LT CHEST TUNE TO SUCTION. FEMORAL ACCESS (3) Respiratory distress (4) Tracheostomy complication Assessment & Plan: trach complication intubated on support will need to revise trach once stable thank you Ant Lee February 21, 2020 18:54
[2020-02-21] MEDS: Dyna-Hex 2% Top Sol 2oz TOPIC SCH (20:20)
--- NOTE | 2020-02-21 21:15 | Progress Note ---
DATE: 02/21/2020 SUBJECTIVE: This is a 49-year-old female, currently in bed in ICU, nonverbal, lethargic. PHYSICAL EXAMINATION: VITAL SIGNS: Blood pressure 198/48, pulse 125, respirations 24, 40% oxygen. CHEST: Bilateral decreased breath sounds. CARDIOVASCULAR: Regular rhythm. ABDOMEN: Soft. EXTREMITIES: CCE. NEUROLOGICAL: Generalized weakness. LABORATORY DATA: White counts are 16,000, hemoglobin 11, hematocrit 30, platelets are 148. Chemistry panel, troponin 0.03. Uric acid 2.5. Microbiology, VRE culture, enterococcus. ASSESSMENT: 1. Sepsis. 2. Encephalopathy. 3. Chronic respiratory failure. PLAN: We will currently continue current treatment. Continue antibiotic bronchodilator treatment. Weaning protocols. Darin Delgado M.D. DR: Deborah JOB#: [id number] CC:
[2020-02-22] VITALS (66 sets, daily range): BP systolic 69–221; BP diastolic 30–138
[2020-02-22] MEDS: Phenytoin 100 MG in NS 55 ML IVPB SCH ×4 (00:25→23:53)
[2020-02-22] MEDS: propofoL 1,000mg/100ml 100 ML IV SCH ×3 (01:20→23:55)
[2020-02-22] MEDS: Meropenem 1gm in NS 55ml IVPB SCH ×3 (05:16→21:49)
[2020-02-22] MEDS: Acetaminophen 650mg/20.3ml GT PRN ×2 (05:16→13:59)
[2020-02-22] MEDS: Vancomycin 1 GM in NS 275 ML IVPB SCH ×3 (05:16→22:00)
[2020-02-22 05:20] LABS: HEMATOCRIT 25.5 % (37.0-47.0); HEMOGLOBIN 9.2 G/DL (12.0-16.0); MEAN CORPUSCULAR VOLUME 88 FL (80-99); PLATELET COUNT 114 K/UL (150-450); RED BLOOD COUNT 2.88 M/UL (4.20-5.40); RED CELL DISTRIBUTION WIDTH 11.1 % (11.6-14.8)
[2020-02-22 05:36] LABS: WHITE BLOOD COUNT 27.2 K/UL (4.8-10.8)
[2020-02-22 05:48] LABS: ALANINE AMINOTRANSFERASE 155 U/L (12-78); ALBUMIN 2.2 G/DL (3.4-5.0); ALBUMIN/GLOBULIN RATIO 0.6 (1.0-2.7); ALKALINE PHOSPHATASE 252 U/L (46-116); ANION GAP 10 mmol/L (5-15); ASPARTATE AMINO TRANSFERASE 80 U/L (15-37); BILIRUBIN,TOTAL 1.2 MG/DL (0.2-1.0); BLOOD UREA NITROGEN 9 mg/dL (7-18); CALCIUM 7.8 MG/DL (8.5-10.1); CARBON DIOXIDE 25 MMOL/L (21-32); CHLORIDE 107 MMOL/L (98-107); CREATININE 0.7 MG/DL (0.55-1.30); PHOSPHORUS 1.5 MG/DL (2.5-4.9); SODIUM 142 MMOL/L (136-145)
[2020-02-22 05:56] LABS: POTASSIUM 2.6 MMOL/L (3.5-5.1)
[2020-02-22 06:05] LABS: BILIRUBIN,DIRECT 0.7 MG/DL (0.0-0.3)
[2020-02-22] MEDS: Pantoprazole Inj IVP SCH (10:17)
[2020-02-22] MEDS: levETIRAcetam 500mg/NS100ml 100 ML IVPB SCH ×2 (10:18→21:03)
[2020-02-22] MEDS: Potassium Phosphate 15mm/250ml 250 ML IVPB SCH ×2 (10:18→17:36)
--- NOTE | 2020-02-22 10:22 | Nephrology Progress Note ---
Assessment/Plan Problem List: (1) Electrolyte imbalance (2) Elevated liver enzymes (3) Respiratory failure (4) Hypoalbuminemia (5) Proteinuria (6) Leukocytosis Assessment HypoKalemia Proteinuria, hypoalbuminemia, BUN and creatinine within normal range Chronic respiratory failure Status post left pneumothorax with chest tube in place Transaminitis Leukocytosis Sepsis, bacteremia with gram-positive cocci Anoxic encephalopathy Seizure disorder Penicillin allergy Hypertension Plan February 21: Leukocytosis worsened, Blood pressure borderline low LFTs remain elevated Abnormal magnesium potassium and phosphorus on the can panel Supplements for potassium magnesium and phosphorus ordered and continue as needed Continue to check calcium and phosphorus and liver function tests Continue per ID and pulmonary Keep the blood pressure and blood sugar in check Per orders Subjective ROS Limited/Unobtainable: Yes Objective Objective Last 24 Hour Vital Signs Date Time Temp Pulse Resp B/P (MAP) Pulse Ox O2 Delivery O2 Flow Rate FiO2 02/22/20 07:00 20 91/44 Mechanical Ventilator 02/22/20 07:00 91/44 02/22/20 07:00 101 22 96/44 (61) 99 02/22/20 06:32 99.5 02/22/20 06:30 110 22 95/45 (62) 99 02/22/20 06:30 108 20 02/22/20 06:00 99.8 109 21 103/50 (67) 99 02/22/20 06:00 20 103/50 Mechanical Ventilator 02/22/20 06:00 103/50 02/22/20 05:30 122 17 117/51 (73) 99 02/22/20 05:00 103.0 115 22 113/51 (71) 99 02/22/20 05:00 23 109/49 Mechanical Ventilator 02/22/20 05:00 109/49 02/22/20 04:30 127 31 132/44 (73) 100 02/22/20 04:00 127 32 120/33 (62) 100 02/22/20 04:00 107 02/22/20 04:00 Mechanical Ventilator 02/22/20 04:00 24 128/58 Mechanical Ventilator 02/22/20 04:00 128/58 02/22/20 04:00 40 02/22/20 03:30 110 21 98/54 (69) 100 02/22/20 03:15 121 24 40 02/22/20 03:00 112 21 98/51 (67) 100 02/22/20 03:00 21 98/56 Mechanical Ventilator 02/22/20 03:00 98/56 02/22/20 02:30 117 23 111/49 (69) 99 02/22/20 02:00 115 27 126/70 (88) 83 02/22/20 02:00 20 107/47 Mechanical Ventilator 02/22/20 02:00 107/47 02/22/20 01:30 109 19 104/60 (75) 100 02/22/20 01:20 20 100/51 Mechanical Ventilator 02/22/20 01:00 104 20 99/57 (71) 100 02/22/20 01:00 100/51 02/22/20 01:00 20 100/51 Mechanical Ventilator 02/22/20 00:30 101 19 96/52 (67) 100 02/22/20 00:00 98.8 105 26 107/52 (70) 100 02/22/20 00:00 81/44 02/22/20 00:00 20 81/44 Mechanical Ventilator 02/22/20 00:00 Mechanical Ventilator 02/22/20 00:00 113 02/22/20 00:00 40 02/21/20 23:30 108 20 87/52 (64) 100 02/21/20 23:11 123 26 40 02/21/20 23:00 99.1 109 20 95/40 (58) 100 02/21/20 23:00 87/52 02/21/20 23:00 21 87/52 Mechanical Ventilator 02/21/20 22:45 118 21 92/51 (65) 100 02/21/20 22:30 115 20 97/46 (63) 100 02/21/20 22:11 104/54 02/21/20 22:00 99.9 120 19 104/54 (71) 100 02/21/20 22:00 98/51 02/21/20 22:00 21 98/51 Mechanical Ventilator 02/21/20 21:42 80/50 02/21/20 21:30 102.0 126 21 60/39 (46) 88 02/21/20 21:00 120 23 101/46 (64) 99 02/21/20 21:00 100/58 02/21/20 21:00 22 100/58 Mechanical Ventilator 02/21/20 20:30 114 21 111/74 (86) 99 5/18/20 20:00 Mechanical Ventilator 20 20:00 40 20 20:00 101/64 520 20:00 22 101/64 Mechanical Ventilator 02/21/20 20:00 116 520 20:00 110 22 87/52 (64) 100 02/21/20 19:30 114 22 88/46 (60) 100 02/21/20 19:10 110 21 40 02/21/20 19:00 87/46 20 19:00 22 87/46 Mechanical Ventilator 02/21/20 19:00 117 21 83/50 (61) 100 02/21/20 18:30 119 22 96/48 (64) 100 02/21/20 18:15 119 23 85/45 (58) 100 02/21/20 18:00 22 85/45 Mechanical Ventilator 40 02/21/20 18:00 85/45 02/21/20 18:00 120 21 81/36 (51) 100 02/21/20 17:30 128 26 104/44 (64) 100 02/21/20 17:00 125 23 101/49 (66) 100 02/21/20 17:00 23 97/52 Mechanical Ventilator 40 02/21/20 17:00 97/52 02/21/20 16:30 125 24 103/52 (69) 100 02/21/20 16:00 128 02/21/20 16:00 40 02/21/20 16:00 25 104/47 Mechanical Ventilator 40 02/21/20 16:00 104/47 02/21/20 16:00 128 23 111/85 (94) 97 02/21/20 16:00 Mechanical Ventilator 02/21/20 15:30 128 23 113/63 (80) 96 20 15:00 23 102/67 Mechanical Ventilator 40 20 15:00 102/67 20 15:00 126 22 109/45 (66) 99 02/21/20 14:58 125 24 40 20 14:30 130 22 98/48 (65) 100 20 14:00 27 88/66 Mechanical Ventilator 40 20 14:00 88/66 02/21/20 14:00 135 26 117/75 (89) 87 02/21/20 13:45 117/75 02/21/20 13:30 121/52 02/21/20 13:30 120 24 93/65 (74) 98 02/21/20 13:15 93/65 02/21/20 13:00 21 112/59 Mechanical Ventilator 98 02/21/20 13:00 112/59 02/21/20 13:00 114 20 111/73 (86) 100 02/21/20 12:30 115 23 97/50 (66) 99 02/21/20 12:00 113 02/21/20 12:00 100.0 115 21 94/49 (64) 98 02/21/20 12:00 Mechanical Ventilator 02/21/20 12:00 20 90/50 Mechanical Ventilator 40 02/21/20 12:00 90/50 02/21/20 12:00 40 02/21/20 11:30 117 21 96/47 (63) 99 02/21/20 11:04 118 22 40 02/21/20 11:00 22 101/59 Mechanical Ventilator 40 02/21/20 11:00 101/59 02/21/20 11:00 118 20 103/48 (66) 99 02/21/20 10:30 109 20 112/53 (72) 100 Intake and Output 02/21/20 02/22/20 19:00 07:00 Intake Total 900.972 ml 1228.950 ml Output Total 1280 ml 1030 ml Balance -379.028 ml 198.950 ml Intake Free Water 200 ml 50 ml IV Total 700.972 ml 1178.950 ml Output Urine Total 1280 ml 1030 ml Laboratory Tests 02/21/20 11:25: Troponin I 0.003 02/21/20 18:32: Troponin I 0.002 02/22/20 03:10: Troponin I 0.000, White Blood Count 27.2#*H, Red Blood Count 2.88L, Hemoglobin 9.2L, Hematocrit 25.5L, Mean Corpuscular Volume 88, Mean Corpuscular Hemoglobin 32.1H, Mean Corpuscular Hemoglobin Concent 36.3H, Red Cell Distribution Width 11.1L, Platelet Count 114L, Mean Platelet Volume 8.7, Neutrophils (%) (Auto) , Lymphocytes (%) (Auto) , Monocytes (%) (Auto) , Eosinophils (%) (Auto) , Basophils (%) (Auto) , Differential Total Cells Counted 100, Neutrophils % ( Manual) 93H, Lymphocytes % (Manual) 5L, Monocytes % (Manual) 2, Eosinophils % ( Manual) 0, Basophils % (Manual) 0, Band Neutrophils 0, Platelet Estimate DecreasedL, Platelet Morphology Normal, Hypochromasia 2+, Anisocytosis 1+, Sodium Level 142, Potassium Level 2.6*L, Chloride Level 107, Carbon Dioxide Level 25, Anion Gap 10, Blood Urea Nitrogen 9, Creatinine 0.7, Estimat Glomerular Filtration Rate > 60, Glucose Level 123H, Uric Acid 2.2L, Calcium Level 7.8L, Phosphorus Level 1.5L, Magnesium Level 1.6L, Total Bilirubin 1.2H, Direct Bilirubin 0.7H, Aspartate Amino Transf (AST/SGOT) 80H, Alanine Aminotransferase (ALT/SGPT) 155H, Alkaline Phosphatase 252H, C-Reactive Protein , Quantitative 33.2H, Pro-B-Type Natriuretic Peptide 5390H, Total Protein 5.6L, Albumin 2.2L, Globulin 3.4, Albumin/Globulin Ratio 0.6L Height (Feet): 5 Height (Inches): 4.00 Weight (Pounds): 152 General Appearance: no apparent distress EENT: other - On mechanical ventilation Cardiovascular: tachycardia Respiratory/Chest: decreased breath sounds Abdomen: distended Erich Link MD February 22, 2020 10:22
--- NOTE | 2020-02-22 11:31 | Infectious Diseases Prog Note ---
Assessment/Plan Assessment/Plan antibiotics : vancomycin iv, meropenem A 1. pneumonia r/o COVID 19 on FiO2 40 percent, PEEP 5, 99 percent saturation 2. respiratory failure 3. shock 4. gram positive sepsis 5. pneumothorax 6. hypertension 7. hydrocephalus 8, leucocytosis P 1. continue iv vancomycin, meropenem 2. will follow up culture 3. continue isolation Subjective ROS Limited/Unobtainable: Yes Allergies: Coded Allergies: PENICILLINS (Verified Allergy, Unknown, 02/14/18) Objective Vital Signs Last 24 Hour Vital Signs Date Time Temp Pulse Resp B/P (MAP) Pulse Ox O2 Delivery O2 Flow Rate FiO2 02/22/20 10:45 128 22 87/42 (57) 100 02/22/20 10:30 131 24 87/42 (57) 99 02/22/20 10:15 137 24 99/47 (64) 100 02/22/20 10:00 151 33 105/76 (86) 99 02/22/20 09:45 162 40 148/85 (106) 99 02/22/20 09:35 162 39 117/85 (96) 99 02/22/20 09:31 161 40 181/138 (152) 100 02/22/20 09:26 155 31 199/94 (129) 100 02/22/20 09:21 150 39 221/89 (133) 99 02/22/20 09:00 126 35 134/60 (84) 100 02/22/20 08:30 103 20 89/38 (55) 100 02/22/20 08:00 97 02/22/20 08:00 Mechanical Ventilator Mechanical Ventilator 02/22/20 08:00 99.8 100 20 100/49 (66) 100 02/22/20 08:00 40 02/22/20 07:04 98 20 40 02/22/20 07:00 20 91/44 Mechanical Ventilator 02/22/20 07:00 91/44 02/22/20 07:00 101 22 96/44 (61) 99 02/22/20 06:32 99.5 02/22/20 06:30 110 22 95/45 (62) 99 02/22/20 06:30 108 20 02/22/20 06:00 99.8 109 21 103/50 (67) 99 02/22/20 06:00 20 103/50 Mechanical Ventilator 02/22/20 06:00 103/50 02/22/20 05:30 122 17 117/51 (73) 99 02/22/20 05:00 103.0 115 22 113/51 (71) 99 02/22/20 05:00 23 109/49 Mechanical Ventilator 02/22/20 05:00 109/49 02/22/20 04:30 127 31 132/44 (73) 100 02/22/20 04:00 127 32 120/33 (62) 100 02/22/20 04:00 107 02/22/20 04:00 Mechanical Ventilator 02/22/20 04:00 24 128/58 Mechanical Ventilator 02/22/20 04:00 128/58 02/22/20 04:00 40 02/22/20 03:30 110 21 98/54 (69) 100 02/22/20 03:15 121 24 40 02/22/20 03:00 112 21 98/51 (67) 100 02/22/20 03:00 21 98/56 Mechanical Ventilator 02/22/20 03:00 98/56 02/22/20 02:30 117 23 111/49 (69) 99 02/22/20 02:00 115 27 126/70 (88) 83 02/22/20 02:00 20 107/47 Mechanical Ventilator 02/22/20 02:00 107/47 02/22/20 01:30 109 19 104/60 (75) 100 02/22/20 01:20 20 100/51 Mechanical Ventilator 02/22/20 01:00 104 20 99/57 (71) 100 02/22/20 01:00 100/51 02/22/20 01:00 20 100/51 Mechanical Ventilator 02/22/20 00:30 101 19 96/52 (67) 100 02/22/20 00:00 98.8 105 26 107/52 (70) 100 02/22/20 00:00 81/44 02/22/20 00:00 20 81/44 Mechanical Ventilator 02/22/20 00:00 Mechanical Ventilator 02/22/20 00:00 113 02/22/20 00:00 40 02/21/20 23:30 108 20 87/52 (64) 100 02/21/20 23:11 123 26 40 02/21/20 23:00 99.1 109 20 95/40 (58) 100 5/18/20 23:00 87/52 20 23:00 21 87/52 Mechanical Ventilator 02/21/20 22:45 118 21 92/51 (65) 100 02/21/20 22:30 115 20 97/46 (63) 100 20 22:11 104/54 02/21/20 22:00 99.9 120 19 104/54 (71) 100 20 22:00 98/51 20 22:00 21 98/51 Mechanical Ventilator 02/21/20 21:42 80/50 5 21:30 102.0 126 21 60/39 (46) 88 02/21/20 21:00 120 23 101/46 (64) 99 02/21/20 21:00 100/58 02/21/20 21:00 22 100/58 Mechanical Ventilator 02/21/20 20:30 114 21 111/74 (86) 99 02/21/20 20:00 Mechanical Ventilator 02/21/20 20:00 40 20 20:00 101/64 02/21/20 20:00 22 101/64 Mechanical Ventilator 02/21/20 20:00 116 02/21/20 20:00 110 22 87/52 (64) 100 02/21/20 19:30 114 22 88/46 (60) 100 02/21/20 19:10 110 21 40 02/21/20 19:00 87/46 02/21/20 19:00 22 87/46 Mechanical Ventilator 02/21/20 19:00 117 21 83/50 (61) 100 02/21/20 18:30 119 22 96/48 (64) 100 02/21/20 18:15 119 23 85/45 (58) 100 02/21/20 18:00 22 85/45 Mechanical Ventilator 40 20 18:00 85/45 02/21/20 18:00 120 21 81/36 (51) 100 20 17:30 128 26 104/44 (64) 100 20 17:00 125 23 101/49 (66) 100 20 17:00 23 97/52 Mechanical Ventilator 40 20 17:00 97/52 20 16:30 125 24 103/52 (69) 100 5/18/20 16:00 128 5/18/20 16:00 40 02/21/20 16:00 25 104/47 Mechanical Ventilator 40 02/21/20 16:00 104/47 02/21/20 16:00 128 23 111/85 (94) 97 02/21/20 16:00 Mechanical Ventilator 02/21/20 15:30 128 23 113/63 (80) 96 02/21/20 15:00 23 102/67 Mechanical Ventilator 40 02/21/20 15:00 102/67 02/21/20 15:00 126 22 109/45 (66) 99 02/21/20 14:58 125 24 40 02/21/20 14:30 130 22 98/48 (65) 100 02/21/20 14:00 27 88/66 Mechanical Ventilator 40 02/21/20 14:00 88/66 02/21/20 14:00 135 26 117/75 (89) 87 02/21/20 13:45 117/75 02/21/20 13:30 121/52 02/21/20 13:30 120 24 93/65 (74) 98 02/21/20 13:15 93/65 02/21/20 13:00 21 112/59 Mechanical Ventilator 98 02/21/20 13:00 112/59 02/21/20 13:00 114 20 111/73 (86) 100 02/21/20 12:30 115 23 97/50 (66) 99 02/21/20 12:00 113 02/21/20 12:00 100.0 115 21 94/49 (64) 98 02/21/20 12:00 Mechanical Ventilator 02/21/20 12:00 20 90/50 Mechanical Ventilator 40 02/21/20 12:00 90/50 02/21/20 12:00 40 Height (Feet): 5 Height (Inches): 4.00 Weight (Pounds): 152 HEENT: status post trach Microbiology Date/Time Source Procedure Growth Status 02/19/20 14:40 Nasal Nares MRSA Culture - Final NO METHICILLIN RESISTANT STAPH AUREUS... Complete 02/19/20 14:40 Rectum VRE Culture - Final Enterococcus Faecalis - Vre Complete Laboratory Tests Test 02/21/20 18:32 02/22/20 03:10 Troponin I 0.002 ng/mL (0.000-0.056) 0.000 ng/mL (0.000-0.056) White Blood Count 27.2 K/UL (4.8-10.8) #*H Red Blood Count 2.88 M/UL (4.20-5.40) L Hemoglobin 9.2 G/DL (12.0-16.0) L Hematocrit 25.5 % (37.0-47.0) L Mean Corpuscular Volume 88 FL (80-99) Mean Corpuscular Hemoglobin 32.1 PG (27.0-31.0) H Mean Corpuscular Hemoglobin Concent 36.3 G/DL (32.0-36.0) H Red Cell Distribution Width 11.1 % (11.6-14.8) L Platelet Count 114 K/UL (150-450) L Mean Platelet Volume 8.7 FL (6.5-10.1) Neutrophils (%) (Auto) % (45.0-75.0) Lymphocytes (%) (Auto) % (20.0-45.0) Monocytes (%) (Auto) % (1.0-10.0) Eosinophils (%) (Auto) % (0.0-3.0) Basophils (%) (Auto) % (0.0-2.0) Differential Total Cells Counted 100 Neutrophils % (Manual) 93 % (45-75) H Lymphocytes % (Manual) 5 % (20-45) L Monocytes % (Manual) 2 % (1-10) Eosinophils % (Manual) 0 % (0-3) Basophils % (Manual) 0 % (0-2) Band Neutrophils 0 % (0-8) Platelet Estimate Decreased L Platelet Morphology Normal Hypochromasia 2+ Anisocytosis 1+ Sodium Level 142 MMOL/L (136-145) Potassium Level 2.6 MMOL/L (3.5-5.1) *L Chloride Level 107 MMOL/L (98-107) Carbon Dioxide Level 25 MMOL/L (21-32) Anion Gap 10 mmol/L (5-15) Blood Urea Nitrogen 9 mg/dL (7-18) Creatinine 0.7 MG/DL (0.55-1.30) Estimat Glomerular Filtration Rate > 60 mL/min (>60) Glucose Level 123 MG/DL (74-106) H Uric Acid 2.2 MG/DL (2.6-7.2) L Calcium Level 7.8 MG/DL (8.5-10.1) L Phosphorus Level 1.5 MG/DL (2.5-4.9) L Magnesium Level 1.6 MG/DL (1.8-2.4) L Total Bilirubin 1.2 MG/DL (0.2-1.0) H Direct Bilirubin 0.7 MG/DL (0.0-0.3) H Aspartate Amino Transf (AST/SGOT) 80 U/L (15-37) H Alanine Aminotransferase (ALT/SGPT) 155 U/L (12-78) H Alkaline Phosphatase 252 U/L (46-116) H C-Reactive Protein, Quantitative 33.2 mg/dL (0.00-0.90) H Pro-B-Type Natriuretic Peptide 5390 pg/mL (0-125) H Total Protein 5.6 G/DL (6.4-8.2) L Albumin 2.2 G/DL (3.4-5.0) L Globulin 3.4 g/dL Albumin/Globulin Ratio 0.6 (1.0-2.7) L Current Medications Medications (Trade) Dose Ordered Sig/Bere Route PRN Reason Start Time Stop Time Status Last Admin Dose Admin Acetaminophen (Tylenol) 650 mg Q4H PRN GT Temp >100.5 02/19/20 22:00 03/20/20 21:59 02/22/20 05:16 Chlorhexidine Gluconate (Jane-Hex 2%) 1 applic DAILY@2000 TOPIC 02/20/20 20:00 05/20/20 19:59 02/21/20 20:20 Dopamine HCl/ Dextrose 250 ml @ 0 mls/hr Q24H IV 02/19/20 21:00 05/19/20 20:59 02/21/20 03:10 Levetiracetam 100 ml @ 400 mls/hr Q12HR IVPB 02/20/20 09:00 05/20/20 08:59 02/22/20 10:18 Lorazepam (Ativan 2mg/ml 1ml) 2 mg Q6H PRN IV For Seizures 02/19/20 22:00 02/26/20 21:59 Meropenem 1 gm/ Sodium Chloride 55 ml @ 110 mls/hr Q8HR IVPB 02/19/20 22:00 02/24/20 21:59 02/22/20 05:16 Norepinephrine Bitartrate 4 mg/ Dextrose 250 ml @ 0 mls/hr Q24H IV 02/21/20 21:45 03/22/20 21:44 02/21/20 22:11 Pantoprazole (Protonix) 40 mg DAILY IVP 02/20/20 09:00 03/21/20 08:59 02/22/20 10:17 Phenytoin 100 mg/ Sodium Chloride 57 ml @ 114 mls/hr [id number] PHENYTOIN IVPB 02/20/20 00:00 03/21/20 00:00 02/22/20 10:16 Potassium Phosphate 250 ml @ 62.5 mls/hr Q4H IVPB 02/22/20 11:00 02/22/20 18:59 02/22/20 10:18 Propofol 100 ml @ 0 mls/hr Q24H IV 02/22/20 01:00 02/24/20 00:59 02/22/20 01:20 Vancomycin HCl (Vanco rx to dose) 1 ea DAILY PRN MISC Per rx protocol 02/19/20 21:15 03/20/20 21:14 Vancomycin HCl 1 gm/Sodium Chloride 275 ml @ 183.708 mls/hr Q8H IVPB 02/21/20 14:00 02/26/20 13:59 02/22/20 05:16 Lulu Gurrola MD February 22, 2020 11:31
--- NOTE | 2020-02-22 12:59 | Cardiac Electrophysiology PN ---
Assessment/Plan Assessment/Plan 1. Respiratory failure. Patient is currently orally intubated. Further evaluation by Dr. Haile. 2. Paroxysmal atrial fibrillation, currently off anticoagulation in view of bleeding from the trach site. Rate OK for now 3. Pneumothorax, status post chest tube placement on broad-spectrum IV antibiotic. 4. Hypotension, on Levophed and IV antibiotic. 5. Dysphagia, status post PEG placement. 6. Dementia. 7. Hypernatremia. Sodium 140. This patient is on IV fluids. 8. Status post left pneumothorax with chest tube in place. Patient has tracheal bleeding, status post removal. 9. Chronic encephalopathy. Subjective Subjective In ICU on the vent . Trach is covered On Levo 4 Mcg Objective Last 24 Hour Vital Signs Date Time Temp Pulse Resp B/P (MAP) Pulse Ox O2 Delivery O2 Flow Rate FiO2 02/22/20 10:45 128 22 87/42 (57) 100 02/22/20 10:30 131 24 87/42 (57) 99 02/22/20 10:15 137 24 99/47 (64) 100 02/22/20 10:00 151 33 105/76 (86) 99 02/22/20 09:45 162 40 148/85 (106) 99 02/22/20 09:35 162 39 117/85 (96) 99 02/22/20 09:31 161 40 181/138 (152) 100 02/22/20 09:26 155 31 199/94 (129) 100 02/22/20 09:21 150 39 221/89 (133) 99 02/22/20 09:00 126 35 134/60 (84) 100 02/22/20 08:30 103 20 89/38 (55) 100 02/22/20 08:00 97 02/22/20 08:00 Mechanical Ventilator Mechanical Ventilator 02/22/20 08:00 99.8 100 20 100/49 (66) 100 02/22/20 08:00 40 02/22/20 07:04 98 20 40 02/22/20 07:00 20 91/44 Mechanical Ventilator 02/22/20 07:00 91/44 02/22/20 07:00 101 22 96/44 (61) 99 02/22/20 06:32 99.5 02/22/20 06:30 110 22 95/45 (62) 99 02/22/20 06:30 108 20 02/22/20 06:00 99.8 109 21 103/50 (67) 99 02/22/20 06:00 20 103/50 Mechanical Ventilator 02/22/20 06:00 103/50 02/22/20 05:30 122 17 117/51 (73) 99 02/22/20 05:00 103.0 115 22 113/51 (71) 99 02/22/20 05:00 23 109/49 Mechanical Ventilator 02/22/20 05:00 109/49 02/22/20 04:30 127 31 132/44 (73) 100 02/22/20 04:00 127 32 120/33 (62) 100 02/22/20 04:00 107 02/22/20 04:00 Mechanical Ventilator 02/22/20 04:00 24 128/58 Mechanical Ventilator 02/22/20 04:00 128/58 02/22/20 04:00 40 02/22/20 03:30 110 21 98/54 (69) 100 02/22/20 03:15 121 24 40 02/22/20 03:00 112 21 98/51 (67) 100 02/22/20 03:00 21 98/56 Mechanical Ventilator 02/22/20 03:00 98/56 02/22/20 02:30 117 23 111/49 (69) 99 02/22/20 02:00 115 27 126/70 (88) 83 02/22/20 02:00 20 107/47 Mechanical Ventilator 02/22/20 02:00 107/47 02/22/20 01:30 109 19 104/60 (75) 100 02/22/20 01:20 20 100/51 Mechanical Ventilator 02/22/20 01:00 104 20 99/57 (71) 100 02/22/20 01:00 100/51 02/22/20 01:00 20 100/51 Mechanical Ventilator 02/22/20 00:30 101 19 96/52 (67) 100 02/22/20 00:00 98.8 105 26 107/52 (70) 100 02/22/20 00:00 81/44 02/22/20 00:00 20 81/44 Mechanical Ventilator 02/22/20 00:00 Mechanical Ventilator 02/22/20 00:00 113 02/22/20 00:00 40 02/21/20 23:30 108 20 87/52 (64) 100 02/21/20 23:11 123 26 40 02/21/20 23:00 99.1 109 20 95/40 (58) 100 20 23:00 87/52 20 23:00 21 87/52 Mechanical Ventilator 02/21/20 22:45 118 21 92/51 (65) 100 02/21/20 22:30 115 20 97/46 (63) 100 02/21/20 22:11 104/54 02/21/20 22:00 99.9 120 19 104/54 (71) 100 20 22:00 98/51 02/21/20 22:00 21 98/51 Mechanical Ventilator 02/21/20 21:42 80/50 02/21/20 21:30 102.0 126 21 60/39 (46) 88 02/21/20 21:00 120 23 101/46 (64) 99 02/21/20 21:00 100/58 02/21/20 21:00 22 100/58 Mechanical Ventilator 02/21/20 20:30 114 21 111/74 (86) 99 02/21/20 20:00 Mechanical Ventilator 02/21/20 20:00 40 20 20:00 101/64 02/21/20 20:00 22 101/64 Mechanical Ventilator 02/21/20 20:00 116 02/21/20 20:00 110 22 87/52 (64) 100 02/21/20 19:30 114 22 88/46 (60) 100 02/21/20 19:10 110 21 40 02/21/20 19:00 87/46 02/21/20 19:00 22 87/46 Mechanical Ventilator 02/21/20 19:00 117 21 83/50 (61) 100 02/21/20 18:30 119 22 96/48 (64) 100 02/21/20 18:15 119 23 85/45 (58) 100 02/21/20 18:00 22 85/45 Mechanical Ventilator 40 20 18:00 85/45 02/21/20 18:00 120 21 81/36 (51) 100 02/21/20 17:30 128 26 104/44 (64) 100 02/21/20 17:00 125 23 101/49 (66) 100 02/21/20 17:00 23 97/52 Mechanical Ventilator 40 5/18/20 17:00 97/52 02/21/20 16:30 125 24 103/52 (69) 100 02/21/20 16:00 128 02/21/20 16:00 40 02/21/20 16:00 25 104/47 Mechanical Ventilator 40 02/21/20 16:00 104/47 02/21/20 16:00 128 23 111/85 (94) 97 02/21/20 16:00 Mechanical Ventilator 02/21/20 15:30 128 23 113/63 (80) 96 02/21/20 15:00 23 102/67 Mechanical Ventilator 40 02/21/20 15:00 102/67 02/21/20 15:00 126 22 109/45 (66) 99 02/21/20 14:58 125 24 40 02/21/20 14:30 130 22 98/48 (65) 100 02/21/20 14:00 27 88/66 Mechanical Ventilator 40 02/21/20 14:00 88/66 02/21/20 14:00 135 26 117/75 (89) 87 02/21/20 13:45 117/75 02/21/20 13:30 121/52 02/21/20 13:30 120 24 93/65 (74) 98 02/21/20 13:15 93/65 02/21/20 13:00 21 112/59 Mechanical Ventilator 98 02/21/20 13:00 112/59 02/21/20 13:00 114 20 111/73 (86) 100 Intake and Output 02/21/20 02/22/20 19:00 07:00 Intake Total 900.972 ml 1228.950 ml Output Total 1280 ml 1030 ml Balance -379.028 ml 198.950 ml Intake Free Water 200 ml 50 ml IV Total 700.972 ml 1178.950 ml Output Urine Total 1280 ml 1030 ml Laboratory Tests Test 02/21/20 18:32 02/22/20 03:10 Troponin I 0.002 ng/mL (0.000-0.056) 0.000 ng/mL (0.000-0.056) White Blood Count 27.2 K/UL (4.8-10.8) #*H Red Blood Count 2.88 M/UL (4.20-5.40) L Hemoglobin 9.2 G/DL (12.0-16.0) L Hematocrit 25.5 % (37.0-47.0) L Mean Corpuscular Volume 88 FL (80-99) Mean Corpuscular Hemoglobin 32.1 PG (27.0-31.0) H Mean Corpuscular Hemoglobin Concent 36.3 G/DL (32.0-36.0) H Red Cell Distribution Width 11.1 % (11.6-14.8) L Platelet Count 114 K/UL (150-450) L Mean Platelet Volume 8.7 FL (6.5-10.1) Neutrophils (%) (Auto) % (45.0-75.0) Lymphocytes (%) (Auto) % (20.0-45.0) Monocytes (%) (Auto) % (1.0-10.0) Eosinophils (%) (Auto) % (0.0-3.0) Basophils (%) (Auto) % (0.0-2.0) Differential Total Cells Counted 100 Neutrophils % (Manual) 93 % (45-75) H Lymphocytes % (Manual) 5 % (20-45) L Monocytes % (Manual) 2 % (1-10) Eosinophils % (Manual) 0 % (0-3) Basophils % (Manual) 0 % (0-2) Band Neutrophils 0 % (0-8) Platelet Estimate Decreased L Platelet Morphology Normal Hypochromasia 2+ Anisocytosis 1+ Sodium Level 142 MMOL/L (136-145) Potassium Level 2.6 MMOL/L (3.5-5.1) *L Chloride Level 107 MMOL/L (98-107) Carbon Dioxide Level 25 MMOL/L (21-32) Anion Gap 10 mmol/L (5-15) Blood Urea Nitrogen 9 mg/dL (7-18) Creatinine 0.7 MG/DL (0.55-1.30) Estimat Glomerular Filtration Rate > 60 mL/min (>60) Glucose Level 123 MG/DL (74-106) H Uric Acid 2.2 MG/DL (2.6-7.2) L Calcium Level 7.8 MG/DL (8.5-10.1) L Phosphorus Level 1.5 MG/DL (2.5-4.9) L Magnesium Level 1.6 MG/DL (1.8-2.4) L Total Bilirubin 1.2 MG/DL (0.2-1.0) H Direct Bilirubin 0.7 MG/DL (0.0-0.3) H Aspartate Amino Transf (AST/SGOT) 80 U/L (15-37) H Alanine Aminotransferase (ALT/SGPT) 155 U/L (12-78) H Alkaline Phosphatase 252 U/L (46-116) H C-Reactive Protein, Quantitative 33.2 mg/dL (0.00-0.90) H Pro-B-Type Natriuretic Peptide 5390 pg/mL (0-125) H Total Protein 5.6 G/DL (6.4-8.2) L Albumin 2.2 G/DL (3.4-5.0) L Globulin 3.4 g/dL Albumin/Globulin Ratio 0.6 (1.0-2.7) L Microbiology Date/Time Source Procedure Growth Status 02/19/20 14:40 Nasal Nares MRSA Culture - Final NO METHICILLIN RESISTANT STAPH AUREUS... Complete 02/19/20 14:40 Rectum VRE Culture - Final Enterococcus Faecalis - Vre Complete Objective HEAD AND NECK: Orally intubated and tracheostomy is covered. LUNGS: Coarse rhonchi. CARDIOVASCULAR: Regular S1 and S2 with no gallop. She has a chest tube. ABDOMEN: Soft. EXTREMITIES: 1+ pitting edema.Contracted Dat Oh MD February 22, 2020 12:59
--- NOTE | 2020-02-22 13:35 | Surgery Progress Note ---
Surgery Progress Note Subjective Additional Comments ill appearing on support labs noted covid testing plan for trach discussed with ICU team and collet gluer leukocytosis abnormal labs Objective Last 24 Hour Vital Signs Date Time Temp Pulse Resp B/P (MAP) Pulse Ox O2 Delivery O2 Flow Rate FiO2 02/22/20 10:45 128 22 87/42 (57) 100 02/22/20 10:30 131 24 87/42 (57) 99 02/22/20 10:15 137 24 99/47 (64) 100 02/22/20 10:00 151 33 105/76 (86) 99 02/22/20 09:45 162 40 148/85 (106) 99 02/22/20 09:35 162 39 117/85 (96) 99 02/22/20 09:31 161 40 181/138 (152) 100 02/22/20 09:26 155 31 199/94 (129) 100 02/22/20 09:21 150 39 221/89 (133) 99 02/22/20 09:00 126 35 134/60 (84) 100 02/22/20 08:30 103 20 89/38 (55) 100 02/22/20 08:00 97 02/22/20 08:00 Mechanical Ventilator Mechanical Ventilator 02/22/20 08:00 99.8 100 20 100/49 (66) 100 02/22/20 08:00 40 02/22/20 07:04 98 20 40 02/22/20 07:00 20 91/44 Mechanical Ventilator 02/22/20 07:00 91/44 02/22/20 07:00 101 22 96/44 (61) 99 02/22/20 06:32 99.5 02/22/20 06:30 110 22 95/45 (62) 99 02/22/20 06:30 108 20 02/22/20 06:00 99.8 109 21 103/50 (67) 99 02/22/20 06:00 20 103/50 Mechanical Ventilator 02/22/20 06:00 103/50 02/22/20 05:30 122 17 117/51 (73) 99 02/22/20 05:00 103.0 115 22 113/51 (71) 99 02/22/20 05:00 23 109/49 Mechanical Ventilator 02/22/20 05:00 109/49 02/22/20 04:30 127 31 132/44 (73) 100 02/22/20 04:00 127 32 120/33 (62) 100 02/22/20 04:00 107 02/22/20 04:00 Mechanical Ventilator 02/22/20 04:00 24 128/58 Mechanical Ventilator 02/22/20 04:00 128/58 02/22/20 04:00 40 02/22/20 03:30 110 21 98/54 (69) 100 02/22/20 03:15 121 24 40 02/22/20 03:00 112 21 98/51 (67) 100 02/22/20 03:00 21 98/56 Mechanical Ventilator 02/22/20 03:00 98/56 02/22/20 02:30 117 23 111/49 (69) 99 02/22/20 02:00 115 27 126/70 (88) 83 02/22/20 02:00 20 107/47 Mechanical Ventilator 02/22/20 02:00 107/47 02/22/20 01:30 109 19 104/60 (75) 100 02/22/20 01:20 20 100/51 Mechanical Ventilator 02/22/20 01:00 104 20 99/57 (71) 100 02/22/20 01:00 100/51 02/22/20 01:00 20 100/51 Mechanical Ventilator 02/22/20 00:30 101 19 96/52 (67) 100 02/22/20 00:00 98.8 105 26 107/52 (70) 100 02/22/20 00:00 81/44 02/22/20 00:00 20 81/44 Mechanical Ventilator 02/22/20 00:00 Mechanical Ventilator 02/22/20 00:00 113 02/22/20 00:00 40 02/21/20 23:30 108 20 87/52 (64) 100 02/21/20 23:11 123 26 40 02/21/20 23:00 99.1 109 20 95/40 (58) 100 02/21/20 23:00 87/52 02/21/20 23:00 21 87/52 Mechanical Ventilator 02/21/20 22:45 118 21 92/51 (65) 100 02/21/20 22:30 115 20 97/46 (63) 100 02/21/20 22:11 104/54 02/21/20 22:00 99.9 120 19 104/54 (71) 100 5/18/20 22:00 98/51 51820 22:00 21 98/51 Mechanical Ventilator 02/21/20 21:42 80/50 5 21:30 102.0 126 21 60/39 (46) 88 520 21:00 120 23 101/46 (64) 99 51820 21:00 100/58 520 21:00 22 100/58 Mechanical Ventilator 02/21/20 20:30 114 21 111/74 (86) 99 20 20:00 Mechanical Ventilator 02/21/20 20:00 40 20 20:00 101/64 02/21/20 20:00 22 101/64 Mechanical Ventilator 02/21/20 20:00 116 02/21/20 20:00 110 22 87/52 (64) 100 02/21/20 19:30 114 22 88/46 (60) 100 02/21/20 19:10 110 21 40 02/21/20 19:00 87/46 02/21/20 19:00 22 87/46 Mechanical Ventilator 02/21/20 19:00 117 21 83/50 (61) 100 20 18:30 119 22 96/48 (64) 100 02/21/20 18:15 119 23 85/45 (58) 100 02/21/20 18:00 22 85/45 Mechanical Ventilator 40 02/21/20 18:00 85/45 20 18:00 120 21 81/36 (51) 100 02/21/20 17:30 128 26 104/44 (64) 100 02/21/20 17:00 125 23 101/49 (66) 100 20 17:00 23 97/52 Mechanical Ventilator 40 20 17:00 97/52 20 16:30 125 24 103/52 (69) 100 20 16:00 128 02/21/20 16:00 40 20 16:00 25 104/47 Mechanical Ventilator 40 20 16:00 104/47 20 16:00 128 23 111/85 (94) 97 20 16:00 Mechanical Ventilator 02/21/20 15:30 128 23 113/63 (80) 96 02/21/20 15:00 23 102/67 Mechanical Ventilator 40 02/21/20 15:00 102/67 02/21/20 15:00 126 22 109/45 (66) 99 02/21/20 14:58 125 24 40 02/21/20 14:30 130 22 98/48 (65) 100 02/21/20 14:00 27 88/66 Mechanical Ventilator 40 02/21/20 14:00 88/66 02/21/20 14:00 135 26 117/75 (89) 87 02/21/20 13:45 117/75 I&O Intake and Output 02/21/20 02/22/20 19:00 07:00 Intake Total 900.972 ml 1228.950 ml Output Total 1280 ml 1030 ml Balance -379.028 ml 198.950 ml Intake Free Water 200 ml 50 ml IV Total 700.972 ml 1178.950 ml Output Urine Total 1280 ml 1030 ml Dressing: saturated Cardiovascular: RSR Respiratory: decreased breath sounds Abdomen: soft, non-tender, present bowel sounds Extremities: no cyanosis Laboratory Tests Test 02/21/20 18:32 02/22/20 03:10 Troponin I 0.002 ng/mL (0.000-0.056) 0.000 ng/mL (0.000-0.056) White Blood Count 27.2 K/UL (4.8-10.8) #*H Red Blood Count 2.88 M/UL (4.20-5.40) L Hemoglobin 9.2 G/DL (12.0-16.0) L Hematocrit 25.5 % (37.0-47.0) L Mean Corpuscular Volume 88 FL (80-99) Mean Corpuscular Hemoglobin 32.1 PG (27.0-31.0) H Mean Corpuscular Hemoglobin Concent 36.3 G/DL (32.0-36.0) H Red Cell Distribution Width 11.1 % (11.6-14.8) L Platelet Count 114 K/UL (150-450) L Mean Platelet Volume 8.7 FL (6.5-10.1) Neutrophils (%) (Auto) % (45.0-75.0) Lymphocytes (%) (Auto) % (20.0-45.0) Monocytes (%) (Auto) % (1.0-10.0) Eosinophils (%) (Auto) % (0.0-3.0) Basophils (%) (Auto) % (0.0-2.0) Differential Total Cells Counted 100 Neutrophils % (Manual) 93 % (45-75) H Lymphocytes % (Manual) 5 % (20-45) L Monocytes % (Manual) 2 % (1-10) Eosinophils % (Manual) 0 % (0-3) Basophils % (Manual) 0 % (0-2) Band Neutrophils 0 % (0-8) Platelet Estimate Decreased L Platelet Morphology Normal Hypochromasia 2+ Anisocytosis 1+ Sodium Level 142 MMOL/L (136-145) Potassium Level 2.6 MMOL/L (3.5-5.1) *L Chloride Level 107 MMOL/L (98-107) Carbon Dioxide Level 25 MMOL/L (21-32) Anion Gap 10 mmol/L (5-15) Blood Urea Nitrogen 9 mg/dL (7-18) Creatinine 0.7 MG/DL (0.55-1.30) Estimat Glomerular Filtration Rate > 60 mL/min (>60) Glucose Level 123 MG/DL (74-106) H Uric Acid 2.2 MG/DL (2.6-7.2) L Calcium Level 7.8 MG/DL (8.5-10.1) L Phosphorus Level 1.5 MG/DL (2.5-4.9) L Magnesium Level 1.6 MG/DL (1.8-2.4) L Total Bilirubin 1.2 MG/DL (0.2-1.0) H Direct Bilirubin 0.7 MG/DL (0.0-0.3) H Aspartate Amino Transf (AST/SGOT) 80 U/L (15-37) H Alanine Aminotransferase (ALT/SGPT) 155 U/L (12-78) H Alkaline Phosphatase 252 U/L (46-116) H C-Reactive Protein, Quantitative 33.2 mg/dL (0.00-0.90) H Pro-B-Type Natriuretic Peptide 5390 pg/mL (0-125) H Total Protein 5.6 G/DL (6.4-8.2) L Albumin 2.2 G/DL (3.4-5.0) L Globulin 3.4 g/dL Albumin/Globulin Ratio 0.6 (1.0-2.7) L Plan Problems: (1) Pneumothorax Assessment & Plan: cont chest tube to suction am cxr will monitor 1. Left-sided pneumothorax, approximately 50% by volume. 2. Extensive subcutaneous emphysema throughout the chest wall and neck soft tissues bilaterally. s/p chest tube Lungs: Persistent mild increased interstitial markings. The lungs are otherwise clear without focal consolidation. Pleural space: Interval significant improvement of the left-sided pneumothorax, no longer well seen. Heart: Unremarkable. No cardiomegaly. Mediastinum: Unremarkable. Bones/joints: Unremarkable. Soft tissues: Persistent but improved subcutaneous emphysema in the chest reed and neck soft tissues bilaterally. Tubes, lines and devices: Left-sided chest tube in place, with expected positioning. Endotracheal tube tip 3.2 cm above the emerita. Telemetry leads overlie the thorax. IMPRESSION: 1. Left-sided chest tube in place, with expected positioning. 2. Interval significant improvement of the left-sided pneumothorax, which is no longer well seen. 3. Persistent mild increased interstitial markings. This is nonspecific but may suggest mild interstitial edema or a mild pneumonitis. No focal consolidation. 4. Improved subcutaneous emphysema in the chest reed and neck soft tissues bilaterally. (2) Respiratory arrest Assessment & Plan: TRACH REMOVED, SITE BLEEDING. LT CHEST TUNE TO SUCTION. FEMORAL ACCESS will plan for trach new when stable (3) Respiratory distress (4) Tracheostomy complication Assessment & Plan: trach complication intubated on support will need to revise trach once stable thank you Ant Lee February 22, 2020 13:35
--- NOTE | 2020-02-22 15:34 | Pulmonology Progress Note ---
Subjective ROS Limited/Unobtainable: Yes Interval Events: None new; remains intubated Constitutional: Reports: no symptoms HEENT: Repors: no symptoms Respiratory: Reports: no symptoms Cardiovascular: Reports: no symptoms Gastrointestinal/Abdominal: Reports: no symptoms Allergies: Coded Allergies: PENICILLINS (Verified Allergy, Unknown, 02/14/18) Objective Last 24 Hour Vital Signs Date Time Temp Pulse Resp B/P (MAP) Pulse Ox O2 Delivery O2 Flow Rate FiO2 02/22/20 14:15 145 27 69/34 (46) 97 02/22/20 14:01 112/40 02/22/20 14:00 148 25 84/36 (52) 95 02/22/20 14:00 32 112/50 Mechanical Ventilator 02/22/20 13:45 151 27 100/44 (62) 100 02/22/20 13:30 156 29 154/110 (125) 98 02/22/20 13:15 160 34 139/109 (119) 86 02/22/20 13:00 158 44 153/104 (120) 100 02/22/20 12:45 153 20 125/81 (96) 99 02/22/20 12:30 141 31 112/59 (76) 100 02/22/20 12:15 130 26 104/57 (73) 100 02/22/20 12:00 40 02/22/20 12:00 Mechanical Ventilator Mechanical Ventilator 02/22/20 12:00 126 02/22/20 12:00 103.0 135 29 104/55 (71) 99 02/22/20 10:45 128 22 87/42 (57) 100 02/22/20 10:30 131 24 87/42 (57) 99 02/22/20 10:15 137 24 99/47 (64) 100 02/22/20 10:00 151 33 105/76 (86) 99 02/22/20 09:45 162 40 148/85 (106) 99 02/22/20 09:35 162 39 117/85 (96) 99 02/22/20 09:31 161 40 181/138 (152) 100 02/22/20 09:26 155 31 199/94 (129) 100 02/22/20 09:21 150 39 221/89 (133) 99 02/22/20 09:00 126 35 134/60 (84) 100 02/22/20 08:30 103 20 89/38 (55) 100 02/22/20 08:00 97 02/22/20 08:00 Mechanical Ventilator Mechanical Ventilator 02/22/20 08:00 99.8 100 20 100/49 (66) 100 02/22/20 08:00 40 02/22/20 07:04 98 20 40 02/22/20 07:00 20 91/44 Mechanical Ventilator 02/22/20 07:00 91/44 02/22/20 07:00 101 22 96/44 (61) 99 02/22/20 06:32 99.5 02/22/20 06:30 110 22 95/45 (62) 99 02/22/20 06:30 108 20 02/22/20 06:00 99.8 109 21 103/50 (67) 99 02/22/20 06:00 20 103/50 Mechanical Ventilator 02/22/20 06:00 103/50 02/22/20 05:30 122 17 117/51 (73) 99 02/22/20 05:00 103.0 115 22 113/51 (71) 99 02/22/20 05:00 23 109/49 Mechanical Ventilator 02/22/20 05:00 109/49 02/22/20 04:30 127 31 132/44 (73) 100 02/22/20 04:00 127 32 120/33 (62) 100 02/22/20 04:00 107 02/22/20 04:00 Mechanical Ventilator 02/22/20 04:00 24 128/58 Mechanical Ventilator 02/22/20 04:00 128/58 02/22/20 04:00 40 02/22/20 03:30 110 21 98/54 (69) 100 02/22/20 03:15 121 24 40 02/22/20 03:00 112 21 98/51 (67) 100 02/22/20 03:00 21 98/56 Mechanical Ventilator 02/22/20 03:00 98/56 02/22/20 02:30 117 23 111/49 (69) 99 02/22/20 02:00 115 27 126/70 (88) 83 02/22/20 02:00 20 107/47 Mechanical Ventilator 02/22/20 02:00 107/47 02/22/20 01:30 109 19 104/60 (75) 100 5/19/20 01:20 20 100/51 Mechanical Ventilator 02/22/20 01:00 104 20 99/57 (71) 100 02/22/20 01:00 100/51 02/22/20 01:00 20 100/51 Mechanical Ventilator 02/22/20 00:30 101 19 96/52 (67) 100 02/22/20 00:00 98.8 105 26 107/52 (70) 100 02/22/20 00:00 81/44 02/22/20 00:00 20 81/44 Mechanical Ventilator 02/22/20 00:00 Mechanical Ventilator 02/22/20 00:00 113 02/22/20 00:00 40 02/21/20 23:30 108 20 87/52 (64) 100 02/21/20 23:11 123 26 40 02/21/20 23:00 99.1 109 20 95/40 (58) 100 02/21/20 23:00 87/52 02/21/20 23:00 21 87/52 Mechanical Ventilator 02/21/20 22:45 118 21 92/51 (65) 100 02/21/20 22:30 115 20 97/46 (63) 100 02/21/20 22:11 104/54 02/21/20 22:00 99.9 120 19 104/54 (71) 100 02/21/20 22:00 98/51 02/21/20 22:00 21 98/51 Mechanical Ventilator 02/21/20 21:42 80/50 02/21/20 21:30 102.0 126 21 60/39 (46) 88 02/21/20 21:00 120 23 101/46 (64) 99 02/21/20 21:00 100/58 02/21/20 21:00 22 100/58 Mechanical Ventilator 02/21/20 20:30 114 21 111/74 (86) 99 02/21/20 20:00 Mechanical Ventilator 02/21/20 20:00 40 02/21/20 20:00 101/64 02/21/20 20:00 22 101/64 Mechanical Ventilator 02/21/20 20:00 116 02/21/20 20:00 110 22 87/52 (64) 100 02/21/20 19:30 114 22 88/46 (60) 100 02/21/20 19:10 110 21 40 02/21/20 19:00 87/46 02/21/20 19:00 22 87/46 Mechanical Ventilator 02/21/20 19:00 117 21 83/50 (61) 100 02/21/20 18:30 119 22 96/48 (64) 100 02/21/20 18:15 119 23 85/45 (58) 100 02/21/20 18:00 22 85/45 Mechanical Ventilator 40 02/21/20 18:00 85/45 02/21/20 18:00 120 21 81/36 (51) 100 02/21/20 17:30 128 26 104/44 (64) 100 02/21/20 17:00 125 23 101/49 (66) 100 02/21/20 17:00 23 97/52 Mechanical Ventilator 40 02/21/20 17:00 97/52 02/21/20 16:30 125 24 103/52 (69) 100 02/21/20 16:00 128 02/21/20 16:00 40 02/21/20 16:00 25 104/47 Mechanical Ventilator 40 02/21/20 16:00 104/47 02/21/20 16:00 128 23 111/85 (94) 97 02/21/20 16:00 Mechanical Ventilator Intake and Output 02/21/20 02/22/20 19:00 07:00 Intake Total 900.972 ml 1228.950 ml Output Total 1280 ml 1030 ml Balance -379.028 ml 198.950 ml Intake Free Water 200 ml 50 ml IV Total 700.972 ml 1178.950 ml Output Urine Total 1280 ml 1030 ml General Appearance: no acute distress HEENT: normocephalic Respiratory: chest wall non-tender, lungs clear Cardiovascular: normal peripheral pulses Abdomen: normal bowel sounds Laboratory Tests 02/21/20 18:32: Troponin I 0.002 02/22/20 03:10: Troponin I 0.000, White Blood Count 27.2#*H, Red Blood Count 2.88L, Hemoglobin 9.2L, Hematocrit 25.5L, Mean Corpuscular Volume 88, Mean Corpuscular Hemoglobin 32.1H, Mean Corpuscular Hemoglobin Concent 36.3H, Red Cell Distribution Width 11.1L, Platelet Count 114L, Mean Platelet Volume 8.7, Neutrophils (%) (Auto) , Lymphocytes (%) (Auto) , Monocytes (%) (Auto) , Eosinophils (%) (Auto) , Basophils (%) (Auto) , Differential Total Cells Counted 100, Neutrophils % ( Manual) 93H, Lymphocytes % (Manual) 5L, Monocytes % (Manual) 2, Eosinophils % ( Manual) 0, Basophils % (Manual) 0, Band Neutrophils 0, Platelet Estimate DecreasedL, Platelet Morphology Normal, Hypochromasia 2+, Anisocytosis 1+, Sodium Level 142, Potassium Level 2.6*L, Chloride Level 107, Carbon Dioxide Level 25, Anion Gap 10, Blood Urea Nitrogen 9, Creatinine 0.7, Estimat Glomerular Filtration Rate > 60, Glucose Level 123H, Uric Acid 2.2L, Calcium Level 7.8L, Phosphorus Level 1.5L, Magnesium Level 1.6L, Total Bilirubin 1.2H, Direct Bilirubin 0.7H, Aspartate Amino Transf (AST/SGOT) 80H, Alanine Aminotransferase (ALT/SGPT) 155H, Alkaline Phosphatase 252H, C-Reactive Protein , Quantitative 33.2H, Pro-B-Type Natriuretic Peptide 5390H, Total Protein 5.6L, Albumin 2.2L, Globulin 3.4, Albumin/Globulin Ratio 0.6L Current Medications Medications (Trade) Dose Ordered Sig/Bere Route PRN Reason Start Time Stop Time Status Last Admin Dose Admin Acetaminophen (Tylenol) 650 mg Q4H PRN GT Temp >100.5 02/19/20 22:00 03/20/20 21:59 02/22/20 13:59 Chlorhexidine Gluconate (Jane-Hex 2%) 1 applic DAILY@2000 TOPIC 02/20/20 20:00 05/20/20 19:59 02/21/20 20:20 Dopamine HCl/ Dextrose 250 ml @ 0 mls/hr Q24H IV 02/19/20 21:00 05/19/20 20:59 02/21/20 03:10 Levetiracetam 100 ml @ 400 mls/hr Q12HR IVPB 02/20/20 09:00 05/20/20 08:59 02/22/20 10:18 Lorazepam (Ativan 2mg/ml 1ml) 2 mg Q6H PRN IV For Seizures 02/19/20 22:00 02/26/20 21:59 Meropenem 1 gm/ Sodium Chloride 55 ml @ 110 mls/hr Q8HR IVPB 02/19/20 22:00 02/24/20 21:59 02/22/20 13:59 Norepinephrine Bitartrate 4 mg/ Dextrose 250 ml @ 0 mls/hr Q24H IV 02/21/20 21:45 03/22/20 21:44 02/22/20 14:01 Pantoprazole (Protonix) 40 mg DAILY IVP 02/20/20 09:00 03/21/20 08:59 02/22/20 10:17 Phenytoin 100 mg/ Sodium Chloride 57 ml @ 114 mls/hr [id number] PHENYTOIN IVPB 02/20/20 00:00 03/21/20 00:00 02/22/20 10:16 Potassium Phosphate 250 ml @ 62.5 mls/hr Q4H IVPB 02/22/20 11:00 02/22/20 18:59 02/22/20 10:18 Propofol 100 ml @ 0 mls/hr Q24H IV 02/22/20 01:00 02/24/20 00:59 02/22/20 14:00 Vancomycin HCl (Vanco rx to dose) 1 ea DAILY PRN MISC Per rx protocol 02/19/20 21:15 03/20/20 21:14 Vancomycin HCl 1 gm/Sodium Chloride 275 ml @ 183.708 mls/hr Q8H IVPB 02/21/20 14:00 02/26/20 13:59 02/22/20 13:58 Assessment/Plan Assessment/Plan IMPRESSION: 1. Status post left pneumothorax with chest tube in place. 2. Tracheal bleeding, status post removal. 3. Respiratory failure, status post orotracheal intubation. 4. Transaminitis. 5. Leukocytosis. 6. Chronic encephalopathy. 7. Chronic respiratory failure. DISCUSSION: Continue assist-control mechanical ventilation. I will decrease PEEP as much as possible. Keep chest tube to suction. Broad-spectrum antibiotics. Enteral feedings. Continue medications. Follow carefully. Seen by surgery; will need trach revision Tarun Ellis Omar Syed MD February 22, 2020 15:34
[2020-02-22] MEDS: Dyna-Hex 2% Top Sol 2oz TOPIC SCH (20:22)
[2020-02-22] MEDS: DOPamine 400mg/250ml 250 ML IV SCH (21:00)
[2020-02-22] MEDS: Norepinephrine Bitartrate 16 MG in D5W 500ml 550 ML IV SCH (23:26)
[2020-02-23] VITALS (62 sets, daily range): BP systolic 74–169; BP diastolic 39–99
--- NOTE | 2020-02-23 00:14 | Progress Note ---
DATE: 02/22/2020 SUBJECTIVE: A 49-year-old female came with acute respiratory failure, placed on ventilator. The patient is nonverbal, is hypotensive. PHYSICAL EXAMINATION: VITAL SIGNS: Blood pressure is 130/70, low dose on Levophed. HEENT: Eyes are closed. NECK: Supple. CHEST: Bilaterally decreased breath sounds. CARDIOVASCULAR: Regular rhythm. No gallop. No murmur. ABDOMEN: Soft, positive bowel sounds, nontender. EXTREMITIES: No edema. GENITOURINARY: Deferred. LABORATORY DATA: White counts are still high. ASSESSMENT: 1. Sepsis. 2. Pneumonia. 3. Chronic respiratory failure. 4. Encephalopathy. PLAN: 1. We will currently continue antibiotic. 2. Continue bronchodilator treatment. 3. Weaning protocol. 4. Continue G-tube feeding. 5. Try to call the family. Darin Delgado M.D. DR: BELTRAN JOB#: [id number] CC:
[2020-02-23] MEDS: Acetaminophen 650mg/20.3ml GT PRN ×3 (01:21→11:00)
[2020-02-23 05:32] LABS: HEMATOCRIT 28.1 % (37.0-47.0); HEMOGLOBIN 9.8 G/DL (12.0-16.0); MEAN CORPUSCULAR VOLUME 89 FL (80-99); PLATELET COUNT 65 K/UL (150-450); RED BLOOD COUNT 3.15 M/UL (4.20-5.40); RED CELL DISTRIBUTION WIDTH 11.4 % (11.6-14.8)
[2020-02-23] MEDS: Vancomycin 1 GM in NS 275 ML IVPB SCH ×3 (05:40→21:47)
[2020-02-23] MEDS: Meropenem 1gm in NS 55ml IVPB SCH ×3 (05:41→21:46)
[2020-02-23 05:56] LABS: WHITE BLOOD COUNT 32.4 K/UL (4.8-10.8)
[2020-02-23] MEDS: Norepinephrine Bitartrate 16 MG in D5W 500ml 550 ML IV SCH ×2 (06:02→15:27)
[2020-02-23 06:03] LABS: ALANINE AMINOTRANSFERASE 114 U/L (12-78); ALBUMIN/GLOBULIN RATIO 0.5 (1.0-2.7); ALKALINE PHOSPHATASE 335 U/L (46-116); ANION GAP 15 mmol/L (5-15); ASPARTATE AMINO TRANSFERASE 67 U/L (15-37); BILIRUBIN,TOTAL 2.4 MG/DL (0.2-1.0); BLOOD UREA NITROGEN 12 mg/dL (7-18); CALCIUM 7.9 MG/DL (8.5-10.1); CARBON DIOXIDE 19 MMOL/L (21-32); CHLORIDE 105 MMOL/L (98-107); CREATININE 1.1 MG/DL (0.55-1.30); PHOSPHORUS 2.3 MG/DL (2.5-4.9); SODIUM 140 MMOL/L (136-145)
[2020-02-23 06:17] LABS: POTASSIUM 2.4 MMOL/L (3.5-5.1)
[2020-02-23 06:19] LABS: BILIRUBIN,DIRECT 1.9 MG/DL (0.0-0.3)
[2020-02-23 06:39] LABS: GAMMA GLUTAMYL TRANSPEPTIDASE 1185 U/L (5-85); TRIGLYCERIDES 295 MG/DL (30-150)
[2020-02-23] MEDS: propofoL 1,000mg/100ml 100 ML IV SCH (07:00)
[2020-02-23] MEDS: Pantoprazole Inj IVP SCH (08:17)
[2020-02-23] MEDS ORDERED: Potassium Phosphate 20 MM in NS 275 ML IV SCH (08:30)
--- NOTE | 2020-02-23 09:11 | Diagnostic Imaging Report ---
Procedure: XRAY Chest 1v Reason for study: Chest pain Comparison films: 02/21/2020. FINDINGS: Left chest tube remains in place. Endotracheal tube also in place. There is no pneumothorax. Vascularity is normal. Left basilar retrocardiac opacity again noted. Cardiac and mediastinal silhouette are within normal limits. No significant effusion seen. The bony thorax appear unremarkable. IMPRESSION: NO SIGNIFICANT CHANGE COMPARED TO PREVIOUS EXAM.
[2020-02-23] MEDS: levETIRAcetam 500mg/NS100ml 100 ML IVPB SCH ×2 (09:21→21:15)
[2020-02-23] MEDS: Phenytoin 100 MG in NS 55 ML IVPB SCH (09:24)
--- NOTE | 2020-02-23 10:30 | Cardiac Electrophysiology PN ---
Assessment/Plan Assessment/Plan 1. Respiratory failure. Orally intubated on the vent. Fio2 40% and PEEP 5. Fu by Dr. Haile. 2. Paroxysmal atrial fibrillation, currently off anticoagulation in view of bleeding from the trach site. Converted to SR 3. Left Pneumothorax, status post Left chest tube placement on broad-spectrum IV antibiotic. Drained 10 cc last night. 4. Hypotension, on Levophed 12 mcg and IV antibiotic. 5. Dysphagia, status post PEG placement. Draining by gravity for high residual. 6. Dementia. 7. Hypernatremia on IV fluids. 8. Status post left pneumothorax with chest tube in place. Patient has tracheal bleeding, status post removal. 9. Chronic encephalopathy. LUIS RN Subjective Subjective In ICU on the vent . Trach is covered On Levo 4 Mcg Objective Last 24 Hour Vital Signs Date Time Temp Pulse Resp B/P (MAP) Pulse Ox O2 Delivery O2 Flow Rate FiO2 02/23/20 09:00 100.8 111 24 92/59 (70) 100 02/23/20 08:30 111 24 94/59 (71) 100 02/23/20 08:00 109 24 87/55 (66) 100 02/23/20 07:30 112 25 86/56 (66) 100 02/23/20 07:10 124 33 40 02/23/20 07:00 101.3 115 26 90/55 (67) 100 02/23/20 06:30 142 35 02/23/20 06:28 101.0 02/23/20 06:02 155/113 02/23/20 06:00 96/62 02/23/20 06:00 35 96/62 Mechanical Ventilator 40 02/23/20 06:00 143 35 96/62 (73) 100 02/23/20 05:30 144 38 150/39 (76) 02/23/20 05:00 169/53 02/23/20 05:00 38 169/53 Mechanical Ventilator 40 02/23/20 05:00 140 39 155/99 (117) 100 02/23/20 04:30 130 23 166/81 (109) 100 02/23/20 04:00 131 02/23/20 04:00 40 02/23/20 04:00 126/79 02/23/20 04:00 37 126/79 Mechanical Ventilator 40 02/23/20 04:00 102.3 126 31 137/92 (107) 100 02/23/20 04:00 Mechanical Ventilator Mechanical Ventilator 02/23/20 03:45 97 22 130/79 (96) 100 02/23/20 03:30 95 22 136/74 (94) 100 02/23/20 03:10 112 29 40 02/23/20 03:00 101.3 114 29 127/82 (97) 100 02/23/20 03:00 135/70 02/23/20 03:00 26 135/70 Mechanical Ventilator 40 02/23/20 02:30 120 31 133/81 (98) 100 02/23/20 02:00 125/70 02/23/20 02:00 26 135/75 Mechanical Ventilator 40 02/23/20 02:00 110 25 117/66 (83) 100 02/23/20 01:30 133 36 130/66 (87) 100 02/23/20 01:00 136 33 127/77 (94) 100 02/23/20 01:00 142/90 02/23/20 01:00 31 142/90 Mechanical Ventilator 40 02/23/20 00:45 121 28 151/79 (103) 100 02/23/20 00:45 36 150/40 Mechanical Ventilator 40 02/23/20 00:30 36 138/80 Mechanical Ventilator 40 02/23/20 00:30 130 35 145/81 (102) 100 02/23/20 00:15 34 140/86 Mechanical Ventilator 40 02/23/20 00:15 133 38 145/86 (105) 100 02/23/20 00:00 138 02/23/20 00:00 145/86 02/23/20 00:00 42 145/86 Mechanical Ventilator 40 02/23/20 00:00 Mechanical Ventilator Mechanical Ventilator 02/23/20 00:00 40 02/23/20 00:00 103.0 135 39 128/80 (96) 100 02/22/20 23:55 26 150/82 Mechanical Ventilator 40 02/22/20 23:30 133 39 140/81 (100) 100 20 23:26 110/62 02/22/20 23:01 135 36 40 02/22/20 23:00 38 110/62 Mechanical Ventilator 40 02/22/20 23:00 131 37 139/76 (97) 100 02/22/20 22:30 131 37 139/77 (97) 100 20 22:00 30 137/81 Mechanical Ventilator 40 20 22:00 134 37 143/77 (99) 100 20 21:30 133 38 118/77 (91) 100 02/21/20 21:03 79/45 5/20 21:00 131 37 126/76 (93) 100 19/20 21:00 122/45 51920 20:59 132 37 122/80 (94) 100 20 20:45 121 22 79/46 (57) 100 02/21/20 20:30 121 29 119/71 (87) 100 20 20:00 Mechanical Ventilator Mechanical Ventilator 02/22/20 20:00 22 79/54 Mechanical Ventilator 02/22/20 20:00 22 79/54 Mechanical Ventilator 02/22/20 20:00 20 123/83 Mechanical Ventilator 40 20 20:00 132/94 20 20:00 132/94 20 20:00 40 20 20:00 121 20 20:00 99.8 119 29 123/68 (86) 100 20 19:30 125 32 114/69 (84) 100 02/22/20 19:20 125 32 40 02/22/20 19:00 120 27 108/62 (77) 100 20 18:17 79/45 20 18:00 128 24 76/39 (51) 98 20 17:30 130 25 87/48 (61) 98 02/21/20 17:15 138 30 95/51 (66) 99 19/20 17:00 134 27 91/54 (66) 98 19/20 16:45 134 24 90/62 (71) 98 19/20 16:32 135 27 90/55 (67) 98 19/20 16:30 136 26 87/56 (66) 98 19/20 16:15 137 25 97/55 (69) 98 19/20 16:08 137 26 89/56 (67) 99 02/21/20 16:06 138 27 78/47 (57) 99 02/21/20 16:05 138 26 78/41 (53) 99 5/20 16:00 Mechanical Ventilator Mechanical Ventilator 02/22/20 16:00 141 02/22/20 16:00 40 02/22/20 16:00 103.0 137 27 99 02/22/20 15:56 137 25 81/40 (54) 99 02/22/20 15:53 136 25 82/39 (53) 100 02/22/20 15:36 139 25 72/31 (45) 100 02/22/20 15:30 140 25 74/34 (47) 99 02/22/20 15:25 135 28 40 02/22/20 15:15 142 26 79/33 (48) 98 02/22/20 15:00 140 25 73/30 (44) 98 02/22/20 14:15 145 27 69/34 (46) 97 02/22/20 14:01 112/40 02/22/20 14:00 148 25 84/36 (52) 95 02/22/20 14:00 32 112/50 Mechanical Ventilator 02/22/20 13:45 151 27 100/44 (62) 100 02/22/20 13:30 156 29 154/110 (125) 98 02/22/20 13:15 160 34 139/109 (119) 86 02/22/20 13:00 158 44 153/104 (120) 100 02/22/20 12:45 153 20 125/81 (96) 99 02/22/20 12:30 141 31 112/59 (76) 100 02/22/20 12:15 130 26 104/57 (73) 100 02/22/20 12:00 40 02/22/20 12:00 Mechanical Ventilator Mechanical Ventilator 02/22/20 12:00 126 02/22/20 12:00 103.0 135 29 104/55 (71) 99 02/22/20 10:49 128 28 40 02/22/20 10:45 128 22 87/42 (57) 100 02/22/20 10:30 131 24 87/42 (57) 99 Intake and Output 02/22/20 02/23/20 19:00 07:00 Intake Total 1205.592 ml 927.199 ml Output Total 500 ml 1370 ml Balance 705.592 ml -442.801 ml IV Total 1205.592 ml 927.199 ml Output Urine Total 450 ml 970 ml Gastric Drainage Total 50 ml 400 ml Chest Tube Drainage Total 0 ml # Bowel Movements 2 Laboratory Tests Test 02/23/20 04:00 02/23/20 08:30 White Blood Count 32.4 K/UL (4.8-10.8) *H Red Blood Count 3.15 M/UL (4.20-5.40) L Hemoglobin 9.8 G/DL (12.0-16.0) L Hematocrit 28.1 % (37.0-47.0) L Mean Corpuscular Volume 89 FL (80-99) Mean Corpuscular Hemoglobin 31.2 PG (27.0-31.0) H Mean Corpuscular Hemoglobin Concent 35.0 G/DL (32.0-36.0) Red Cell Distribution Width 11.4 % (11.6-14.8) L Platelet Count 65 K/UL (150-450) L Mean Platelet Volume 10.0 FL (6.5-10.1) Neutrophils (%) (Auto) % (45.0-75.0) Lymphocytes (%) (Auto) % (20.0-45.0) Monocytes (%) (Auto) % (1.0-10.0) Eosinophils (%) (Auto) % (0.0-3.0) Basophils (%) (Auto) % (0.0-2.0) Differential Total Cells Counted 100 Neutrophils % (Manual) 73 % (45-75) Lymphocytes % (Manual) 8 % (20-45) L Monocytes % (Manual) 6 % (1-10) Eosinophils % (Manual) 2 % (0-3) Basophils % (Manual) 0 % (0-2) Band Neutrophils 11 % (0-8) H Platelet Estimate Decreased L Platelet Morphology Normal Hypochromasia 1+ Sodium Level 140 MMOL/L (136-145) Potassium Level 2.4 MMOL/L (3.5-5.1) *L Chloride Level 105 MMOL/L (98-107) Carbon Dioxide Level 19 MMOL/L (21-32) L Anion Gap 15 mmol/L (5-15) Blood Urea Nitrogen 12 mg/dL (7-18) Creatinine 1.1 MG/DL (0.55-1.30) # Estimat Glomerular Filtration Rate 52.6 mL/min (>60) Glucose Level 152 MG/DL (74-106) H Uric Acid 2.8 MG/DL (2.6-7.2) Calcium Level 7.9 MG/DL (8.5-10.1) L Phosphorus Level 2.3 MG/DL (2.5-4.9) L Magnesium Level 1.4 MG/DL (1.8-2.4) L Total Bilirubin 2.4 MG/DL (0.2-1.0) H Direct Bilirubin 1.9 MG/DL (0.0-0.3) H Gamma Glutamyl Transpeptidase 1185 U/L (5-85) H Aspartate Amino Transf (AST/SGOT) 67 U/L (15-37) H Alanine Aminotransferase (ALT/SGPT) 114 U/L (12-78) H Alkaline Phosphatase 335 U/L (46-116) H Pro-B-Type Natriuretic Peptide 56895 pg/mL (0-125) H Total Protein 5.8 G/DL (6.4-8.2) L Albumin 2.0 G/DL (3.4-5.0) L Globulin 3.8 g/dL Albumin/Globulin Ratio 0.5 (1.0-2.7) L Triglycerides Level 295 MG/DL (30-150) H Cortisol AM Sample Pending Phenytoin (Dilantin) Level 3.3 ug/mL (10-20) L 18.0 ug/mL (10-20) Objective HEAD AND NECK: Orally intubated and tracheostomy is covered. LUNGS: Coarse rhonchi. CARDIOVASCULAR: Regular S1 and S2 with no gallop. She has a chest tube. ABDOMEN: Soft. EXTREMITIES: 1+ pitting edema.Contracted Dat Oh MD February 23, 2020 10:30
--- NOTE | 2020-02-23 10:52 | Infectious Diseases Prog Note ---
Assessment/Plan Assessment/Plan antibiotics : vancomycin iv, meropenem A 1. pneumonia r/o COVID 19 on FiO2 40 percent, PEEP 5, 100 percent saturation 2. respiratory failure 3. shock 4. + blood cultures with coag neg staph likely contaminated 5. pneumothorax 6. hypertension 7. hydrocephalus 8, leucocytosis increased P 1. continue iv vancomycin, meropenem 2. will follow up culture 3. continue isolation Subjective ROS Limited/Unobtainable: Yes Allergies: Coded Allergies: PENICILLINS (Verified Allergy, Unknown, 02/14/18) Objective Vital Signs Last 24 Hour Vital Signs Date Time Temp Pulse Resp B/P (MAP) Pulse Ox O2 Delivery O2 Flow Rate FiO2 02/23/20 09:00 100.8 111 24 92/59 (70) 100 02/23/20 08:30 111 24 94/59 (71) 100 02/23/20 08:00 109 24 87/55 (66) 100 02/23/20 07:30 112 25 86/56 (66) 100 02/23/20 07:10 124 33 40 02/23/20 07:00 101.3 115 26 90/55 (67) 100 02/23/20 07:00 24 92/59 Mechanical Ventilator 40 02/23/20 06:30 142 35 02/23/20 06:28 101.0 02/23/20 06:02 155/113 02/23/20 06:00 96/62 02/23/20 06:00 35 96/62 Mechanical Ventilator 40 02/23/20 06:00 143 35 96/62 (73) 100 02/23/20 05:30 144 38 150/39 (76) 02/23/20 05:00 169/53 02/23/20 05:00 38 169/53 Mechanical Ventilator 40 02/23/20 05:00 140 39 155/99 (117) 100 02/23/20 04:30 130 23 166/81 (109) 100 02/23/20 04:00 131 02/23/20 04:00 40 02/23/20 04:00 126/79 02/23/20 04:00 37 126/79 Mechanical Ventilator 40 02/23/20 04:00 102.3 126 31 137/92 (107) 100 02/23/20 04:00 Mechanical Ventilator Mechanical Ventilator 02/23/20 03:45 97 22 130/79 (96) 100 02/23/20 03:30 95 22 136/74 (94) 100 02/23/20 03:10 112 29 40 02/23/20 03:00 101.3 114 29 127/82 (97) 100 02/23/20 03:00 135/70 520 03:00 26 135/70 Mechanical Ventilator 40 02/23/20 02:30 120 31 133/81 (98) 100 02/23/20 02:00 125/70 02/23/20 02:00 26 135/75 Mechanical Ventilator 40 02/23/20 02:00 110 25 117/66 (83) 100 02/23/20 01:30 133 36 130/66 (87) 100 02/23/20 01:00 136 33 127/77 (94) 100 02/23/20 01:00 142/90 02/23/20 01:00 31 142/90 Mechanical Ventilator 40 02/23/20 00:45 121 28 151/79 (103) 100 02/23/20 00:45 36 150/40 Mechanical Ventilator 40 02/23/20 00:30 36 138/80 Mechanical Ventilator 40 02/23/20 00:30 130 35 145/81 (102) 100 02/23/20 00:15 34 140/86 Mechanical Ventilator 40 02/23/20 00:15 133 38 145/86 (105) 100 02/23/20 00:00 138 02/23/20 00:00 145/86 02/23/20 00:00 42 145/86 Mechanical Ventilator 40 02/23/20 00:00 Mechanical Ventilator Mechanical Ventilator 02/23/20 00:00 40 02/23/20 00:00 103.0 135 39 128/80 (96) 100 02/22/20 23:55 26 150/82 Mechanical Ventilator 40 02/22/20 23:30 133 39 140/81 (100) 100 02/22/20 23:26 110/62 02/22/20 23:01 135 36 40 02/22/20 23:00 38 110/62 Mechanical Ventilator 40 02/22/20 23:00 131 37 139/76 (97) 100 02/22/20 22:30 131 37 139/77 (97) 100 02/22/20 22:00 30 137/81 Mechanical Ventilator 40 02/22/20 22:00 134 37 143/77 (99) 100 5/19/20 21:30 133 38 118/77 (91) 100 19/20 21:03 79/45 519/20 21:00 131 37 126/76 (93) 100 20 21:00 122/45 19/20 20:59 132 37 122/80 (94) 100 20 20:45 121 22 79/46 (57) 100 20 20:30 121 29 119/71 (87) 100 02/22/20 20:00 Mechanical Ventilator Mechanical Ventilator 02/22/20 20:00 22 79/54 Mechanical Ventilator 20 20:00 22 79/54 Mechanical Ventilator 02/22/20 20:00 20 123/83 Mechanical Ventilator 40 02/22/20 20:00 132/94 20 20:00 132/94 20 20:00 40 20 20:00 121 20 20:00 99.8 119 29 123/68 (86) 100 02/22/20 19:30 125 32 114/69 (84) 100 02/22/20 19:20 125 32 40 02/22/20 19:00 120 27 108/62 (77) 100 02/22/20 18:17 79/45 02/22/20 18:00 128 24 76/39 (51) 98 02/22/20 17:30 130 25 87/48 (61) 98 02/22/20 17:15 138 30 95/51 (66) 99 02/22/20 17:00 134 27 91/54 (66) 98 02/22/20 16:45 134 24 90/62 (71) 98 02/21/20 16:32 135 27 90/55 (67) 98 02/21/20 16:30 136 26 87/56 (66) 98 02/22/20 16:15 137 25 97/55 (69) 98 20 16:08 137 26 89/56 (67) 99 20 16:06 138 27 78/47 (57) 99 02/22/20 16:05 138 26 78/41 (53) 99 02/22/20 16:00 Mechanical Ventilator Mechanical Ventilator 02/22/20 16:00 141 02/22/20 16:00 40 02/22/20 16:00 103.0 137 27 99 02/22/20 15:56 137 25 81/40 (54) 99 02/22/20 15:53 136 25 82/39 (53) 100 02/22/20 15:36 139 25 72/31 (45) 100 02/22/20 15:30 140 25 74/34 (47) 99 02/22/20 15:25 135 28 40 02/22/20 15:15 142 26 79/33 (48) 98 02/22/20 15:00 140 25 73/30 (44) 98 02/22/20 14:15 145 27 69/34 (46) 97 02/22/20 14:01 112/40 02/22/20 14:00 148 25 84/36 (52) 95 02/22/20 14:00 32 112/50 Mechanical Ventilator 02/22/20 13:45 151 27 100/44 (62) 100 02/22/20 13:30 156 29 154/110 (125) 98 02/22/20 13:15 160 34 139/109 (119) 86 02/22/20 13:00 158 44 153/104 (120) 100 02/22/20 12:45 153 20 125/81 (96) 99 02/22/20 12:30 141 31 112/59 (76) 100 02/22/20 12:15 130 26 104/57 (73) 100 02/22/20 12:00 40 02/22/20 12:00 Mechanical Ventilator Mechanical Ventilator 02/22/20 12:00 126 02/22/20 12:00 103.0 135 29 104/55 (71) 99 02/22/20 10:49 128 28 40 Height (Feet): 5 Height (Inches): 4.00 Weight (Pounds): 156 Laboratory Tests Test 02/23/20 04:00 02/23/20 08:30 White Blood Count 32.4 K/UL (4.8-10.8) *H Red Blood Count 3.15 M/UL (4.20-5.40) L Hemoglobin 9.8 G/DL (12.0-16.0) L Hematocrit 28.1 % (37.0-47.0) L Mean Corpuscular Volume 89 FL (80-99) Mean Corpuscular Hemoglobin 31.2 PG (27.0-31.0) H Mean Corpuscular Hemoglobin Concent 35.0 G/DL (32.0-36.0) Red Cell Distribution Width 11.4 % (11.6-14.8) L Platelet Count 65 K/UL (150-450) L Mean Platelet Volume 10.0 FL (6.5-10.1) Neutrophils (%) (Auto) % (45.0-75.0) Lymphocytes (%) (Auto) % (20.0-45.0) Monocytes (%) (Auto) % (1.0-10.0) Eosinophils (%) (Auto) % (0.0-3.0) Basophils (%) (Auto) % (0.0-2.0) Differential Total Cells Counted 100 Neutrophils % (Manual) 73 % (45-75) Lymphocytes % (Manual) 8 % (20-45) L Monocytes % (Manual) 6 % (1-10) Eosinophils % (Manual) 2 % (0-3) Basophils % (Manual) 0 % (0-2) Band Neutrophils 11 % (0-8) H Platelet Estimate Decreased L Platelet Morphology Normal Hypochromasia 1+ Sodium Level 140 MMOL/L (136-145) Potassium Level 2.4 MMOL/L (3.5-5.1) *L Chloride Level 105 MMOL/L (98-107) Carbon Dioxide Level 19 MMOL/L (21-32) L Anion Gap 15 mmol/L (5-15) Blood Urea Nitrogen 12 mg/dL (7-18) Creatinine 1.1 MG/DL (0.55-1.30) # Estimat Glomerular Filtration Rate 52.6 mL/min (>60) Glucose Level 152 MG/DL (74-106) H Uric Acid 2.8 MG/DL (2.6-7.2) Calcium Level 7.9 MG/DL (8.5-10.1) L Phosphorus Level 2.3 MG/DL (2.5-4.9) L Magnesium Level 1.4 MG/DL (1.8-2.4) L Total Bilirubin 2.4 MG/DL (0.2-1.0) H Direct Bilirubin 1.9 MG/DL (0.0-0.3) H Gamma Glutamyl Transpeptidase 1185 U/L (5-85) H Aspartate Amino Transf (AST/SGOT) 67 U/L (15-37) H Alanine Aminotransferase (ALT/SGPT) 114 U/L (12-78) H Alkaline Phosphatase 335 U/L (46-116) H Pro-B-Type Natriuretic Peptide 16735 pg/mL (0-125) H Total Protein 5.8 G/DL (6.4-8.2) L Albumin 2.0 G/DL (3.4-5.0) L Globulin 3.8 g/dL Albumin/Globulin Ratio 0.5 (1.0-2.7) L Triglycerides Level 295 MG/DL (30-150) H Cortisol AM Sample Pending Phenytoin (Dilantin) Level 3.3 ug/mL (10-20) L 18.0 ug/mL (10-20) Current Medications Medications (Trade) Dose Ordered Sig/Bere Route PRN Reason Start Time Stop Time Status Last Admin Dose Admin Acetaminophen (Tylenol) 650 mg Q4H PRN GT Temp >100.5 02/19/20 22:00 03/20/20 21:59 02/23/20 05:58 Chlorhexidine Gluconate (Jane-Hex 2%) 1 applic DAILY@2000 TOPIC 02/20/20 20:00 05/20/20 19:59 02/22/20 20:22 Dopamine HCl/ Dextrose 250 ml @ 0 mls/hr Q24H IV 02/19/20 21:00 05/19/20 20:59 02/21/20 03:10 Levetiracetam 100 ml @ 400 mls/hr Q12HR IVPB 02/20/20 09:00 05/20/20 08:59 02/23/20 09:21 Lorazepam (Ativan 2mg/ml 1ml) 2 mg Q6H PRN IV For Seizures 02/19/20 22:00 02/26/20 21:59 Magnesium Sulfate 100 ml @ 100 mls/hr Q1H IVPB 02/23/20 08:00 02/23/20 11:59 02/23/20 10:45 Meropenem 1 gm/ Sodium Chloride 55 ml @ 110 mls/hr Q8HR IVPB 02/19/20 22:00 02/28/20 21:59 02/23/20 05:41 Norepinephrine Bitartrate 16 mg/ Dextrose 566 ml @ 0 mls/hr Q24H IV 02/22/20 23:00 03/23/20 22:59 02/23/20 06:02 Pantoprazole (Protonix) 40 mg DAILY IVP 02/20/20 09:00 03/21/20 08:59 02/23/20 08:17 Phenytoin 100 mg/ Sodium Chloride 57 ml @ 114 mls/hr [id number] PHENYTOIN IVPB 02/20/20 00:00 03/21/20 00:00 02/23/20 09:24 Potassium Chloride 100 ml @ 50 mls/hr Q2H IVPB 02/23/20 08:00 02/23/20 13:59 02/23/20 10:45 Propofol 100 ml @ 0 mls/hr Q24H IV 02/22/20 01:00 02/24/20 00:59 02/23/20 07:00 Vancomycin HCl (Vanco rx to dose) 1 ea DAILY PRN MISC Per rx protocol 02/19/20 21:15 03/20/20 21:14 Vancomycin HCl 1 gm/Sodium Chloride 275 ml @ 183.708 mls/hr Q8H IVPB 02/21/20 14:00 02/26/20 13:59 02/23/20 05:40 Lulu Gurrola MD February 23, 2020 10:52
--- NOTE | 2020-02-23 11:25 | Nephrology Progress Note ---
Assessment/Plan Problem List: (1) Electrolyte imbalance (2) Elevated liver enzymes (3) Respiratory failure (4) Hypoalbuminemia (5) Proteinuria (6) Leukocytosis Assessment HypoKalemia Proteinuria, hypoalbuminemia, BUN and creatinine within normal range Chronic respiratory failure Status post left pneumothorax with chest tube in place Transaminitis Leukocytosis Sepsis, bacteremia with gram-positive cocci Anoxic encephalopathy Seizure disorder Penicillin allergy Hypertension Plan February 22: Low potassium is replaced intravenously and via GT Stool for C. difficile sent Will monitor electrolytes Continue per consultants regarding normalizing LFTs and underlying sepsis February 21: Leukocytosis worsened, Blood pressure borderline low LFTs remain elevated Abnormal magnesium potassium and phosphorus on the can panel Supplements for potassium magnesium and phosphorus ordered and continue as needed Continue to check calcium and phosphorus and liver function tests Continue per ID and pulmonary Keep the blood pressure and blood sugar in check Per orders Subjective ROS Limited/Unobtainable: Yes Constitutional: Reports: other - Has diarrhea Objective Objective Last 24 Hour Vital Signs Date Time Temp Pulse Resp B/P (MAP) Pulse Ox O2 Delivery O2 Flow Rate FiO2 02/23/20 09:00 100.8 111 24 92/59 (70) 100 02/23/20 08:30 111 24 94/59 (71) 100 02/23/20 08:00 109 24 87/55 (66) 100 02/23/20 07:30 112 25 86/56 (66) 100 02/23/20 07:10 124 33 40 02/23/20 07:00 101.3 115 26 90/55 (67) 100 02/23/20 07:00 24 92/59 Mechanical Ventilator 40 02/23/20 06:30 142 35 02/23/20 06:28 101.0 02/23/20 06:02 155/113 02/23/20 06:00 96/62 02/23/20 06:00 35 96/62 Mechanical Ventilator 40 02/23/20 06:00 143 35 96/62 (73) 100 02/23/20 05:30 144 38 150/39 (76) 02/23/20 05:00 169/53 02/23/20 05:00 38 169/53 Mechanical Ventilator 40 02/23/20 05:00 140 39 155/99 (117) 100 02/23/20 04:30 130 23 166/81 (109) 100 02/23/20 04:00 131 02/23/20 04:00 40 02/23/20 04:00 126/79 5 04:00 37 126/79 Mechanical Ventilator 40 02/23/20 04:00 102.3 126 31 137/92 (107) 100 02/23/20 04:00 Mechanical Ventilator Mechanical Ventilator 02/23/20 03:45 97 22 130/79 (96) 100 02/23/20 03:30 95 22 136/74 (94) 100 02/23/20 03:10 112 29 40 02/23/20 03:00 101.3 114 29 127/82 (97) 100 02/23/20 03:00 135/70 02/23/20 03:00 26 135/70 Mechanical Ventilator 40 02/23/20 02:30 120 31 133/81 (98) 100 02/23/20 02:00 125/70 02/23/20 02:00 26 135/75 Mechanical Ventilator 40 02/23/20 02:00 110 25 117/66 (83) 100 02/23/20 01:30 133 36 130/66 (87) 100 02/23/20 01:00 136 33 127/77 (94) 100 02/23/20 01:00 142/90 02/23/20 01:00 31 142/90 Mechanical Ventilator 40 02/23/20 00:45 121 28 151/79 (103) 100 02/23/20 00:45 36 150/40 Mechanical Ventilator 40 02/23/20 00:30 36 138/80 Mechanical Ventilator 40 02/23/20 00:30 130 35 145/81 (102) 100 02/23/20 00:15 34 140/86 Mechanical Ventilator 40 02/23/20 00:15 133 38 145/86 (105) 100 02/23/20 00:00 138 02/23/20 00:00 145/86 5 00:00 42 145/86 Mechanical Ventilator 40 02/23/20 00:00 Mechanical Ventilator Mechanical Ventilator 02/23/20 00:00 40 02/23/20 00:00 103.0 135 39 128/80 (96) 100 02/22/20 23:55 26 150/82 Mechanical Ventilator 40 02/22/20 23:30 133 39 140/81 (100) 100 02/22/20 23:26 110/62 5/19/20 23:01 135 36 40 02/22/20 23:00 38 110/62 Mechanical Ventilator 40 02/22/20 23:00 131 37 139/76 (97) 100 20 22:30 131 37 139/77 (97) 100 20 22:00 30 137/81 Mechanical Ventilator 40 20 22:00 134 37 143/77 (99) 100 20 21:30 133 38 118/77 (91) 100 20 21:03 79/45 20 21:00 131 37 126/76 (93) 100 20 21:00 122/45 20 20:59 132 37 122/80 (94) 100 02/22/20 20:45 121 22 79/46 (57) 100 02/22/20 20:30 121 29 119/71 (87) 100 02/22/20 20:00 Mechanical Ventilator Mechanical Ventilator 02/22/20 20:00 22 79/54 Mechanical Ventilator 02/22/20 20:00 22 79/54 Mechanical Ventilator 02/22/20 20:00 20 123/83 Mechanical Ventilator 40 02/22/20 20:00 132/94 20 20:00 132/94 20 20:00 40 20 20:00 121 02/22/20 20:00 99.8 119 29 123/68 (86) 100 02/22/20 19:30 125 32 114/69 (84) 100 02/22/20 19:20 125 32 40 02/22/20 19:00 120 27 108/62 (77) 100 02/22/20 18:17 79/45 20 18:00 128 24 76/39 (51) 98 20 17:30 130 25 87/48 (61) 98 20 17:15 138 30 95/51 (66) 99 20 17:00 134 27 91/54 (66) 98 02/21/20 16:45 134 24 90/62 (71) 98 20 16:32 135 27 90/55 (67) 98 02/21/20 16:30 136 26 87/56 (66) 98 02/21/20 16:15 137 25 97/55 (69) 98 5/19/20 16:08 137 26 89/56 (67) 99 02/22/20 16:06 138 27 78/47 (57) 99 02/22/20 16:05 138 26 78/41 (53) 99 02/22/20 16:00 Mechanical Ventilator Mechanical Ventilator 02/22/20 16:00 141 02/22/20 16:00 40 02/22/20 16:00 103.0 137 27 99 02/22/20 15:56 137 25 81/40 (54) 99 02/22/20 15:53 136 25 82/39 (53) 100 02/22/20 15:36 139 25 72/31 (45) 100 02/22/20 15:30 140 25 74/34 (47) 99 02/22/20 15:25 135 28 40 02/22/20 15:15 142 26 79/33 (48) 98 02/22/20 15:00 140 25 73/30 (44) 98 02/22/20 14:15 145 27 69/34 (46) 97 02/22/20 14:01 112/40 02/22/20 14:00 148 25 84/36 (52) 95 02/22/20 14:00 32 112/50 Mechanical Ventilator 02/22/20 13:45 151 27 100/44 (62) 100 02/22/20 13:30 156 29 154/110 (125) 98 02/22/20 13:15 160 34 139/109 (119) 86 02/22/20 13:00 158 44 153/104 (120) 100 02/22/20 12:45 153 20 125/81 (96) 99 02/22/20 12:30 141 31 112/59 (76) 100 02/22/20 12:15 130 26 104/57 (73) 100 02/22/20 12:00 40 02/22/20 12:00 Mechanical Ventilator Mechanical Ventilator 02/22/20 12:00 126 02/22/20 12:00 103.0 135 29 104/55 (71) 99 Intake and Output 02/22/20 02/23/20 19:00 07:00 Intake Total 1205.592 ml 927.199 ml Output Total 500 ml 1370 ml Balance 705.592 ml -442.801 ml IV Total 1205.592 ml 927.199 ml Output Urine Total 450 ml 970 ml Gastric Drainage Total 50 ml 400 ml Chest Tube Drainage Total 0 ml # Bowel Movements 2 Laboratory Tests 02/23/20 04:00: White Blood Count 32.4*H, Red Blood Count 3.15L, Hemoglobin 9.8L, Hematocrit 28.1L, Mean Corpuscular Volume 89, Mean Corpuscular Hemoglobin 31.2H, Mean Corpuscular Hemoglobin Concent 35.0, Red Cell Distribution Width 11.4L, Platelet Count 65L, Mean Platelet Volume 10.0, Neutrophils (%) (Auto) , Lymphocytes (%) (Auto) , Monocytes (%) (Auto) , Eosinophils (%) (Auto) , Basophils (%) (Auto) , Differential Total Cells Counted 100, Neutrophils % ( Manual) 73, Lymphocytes % (Manual) 8L, Monocytes % (Manual) 6, Eosinophils % ( Manual) 2, Basophils % (Manual) 0, Band Neutrophils 11H, Platelet Estimate DecreasedL, Platelet Morphology Normal, Hypochromasia 1+, Sodium Level 140, Potassium Level 2.4*L, Chloride Level 105, Carbon Dioxide Level 19L, Anion Gap 15, Blood Urea Nitrogen 12, Creatinine 1.1#, Estimat Glomerular Filtration Rate 52.6, Glucose Level 152H, Uric Acid 2.8, Calcium Level 7.9L, Phosphorus Level 2.3L, Magnesium Level 1.4L, Total Bilirubin 2.4H, Direct Bilirubin 1.9H, Gamma Glutamyl Transpeptidase 1185H, Aspartate Amino Transf (AST/SGOT) 67H, Alanine Aminotransferase (ALT/SGPT) 114H, Alkaline Phosphatase 335H, Pro-B-Type Natriuretic Peptide 92161K, Total Protein 5.8L, Albumin 2.0L, Globulin 3.8, Albumin/Globulin Ratio 0.5L, Triglycerides Level 295H, Cortisol AM Sample [ Pending], Phenytoin (Dilantin) Level 3.3L 02/23/20 08:30: Phenytoin (Dilantin) Level 18.0 Height (Feet): 5 Height (Inches): 4.00 Weight (Pounds): 156 General Appearance: no apparent distress, lethargic EENT: other Cardiovascular: tachycardia - On mechanical ventilation Respiratory/Chest: decreased breath sounds Abdomen: distended, other Erich Link MD February 23, 2020 11:25
--- NOTE | 2020-02-23 11:51 | Pulmonology Progress Note ---
Subjective ROS Limited/Unobtainable: Yes Interval Events: None new; remains intubated Constitutional: Reports: no symptoms HEENT: Repors: no symptoms Respiratory: Reports: no symptoms Cardiovascular: Reports: no symptoms Gastrointestinal/Abdominal: Reports: no symptoms Allergies: Coded Allergies: PENICILLINS (Verified Allergy, Unknown, 02/14/18) Objective Last 24 Hour Vital Signs Date Time Temp Pulse Resp B/P (MAP) Pulse Ox O2 Delivery O2 Flow Rate FiO2 02/23/20 09:00 100.8 111 24 92/59 (70) 100 02/23/20 08:30 111 24 94/59 (71) 100 02/23/20 08:00 109 24 87/55 (66) 100 02/23/20 07:30 112 25 86/56 (66) 100 02/23/20 07:10 124 33 40 02/23/20 07:00 101.3 115 26 90/55 (67) 100 02/23/20 07:00 24 92/59 Mechanical Ventilator 40 02/23/20 06:30 142 35 02/23/20 06:28 101.0 02/23/20 06:02 155/113 02/23/20 06:00 96/62 02/23/20 06:00 35 96/62 Mechanical Ventilator 40 02/23/20 06:00 143 35 96/62 (73) 100 02/23/20 05:30 144 38 150/39 (76) 02/23/20 05:00 169/53 02/23/20 05:00 38 169/53 Mechanical Ventilator 40 02/23/20 05:00 140 39 155/99 (117) 100 02/23/20 04:30 130 23 166/81 (109) 100 02/23/20 04:00 131 02/23/20 04:00 40 02/23/20 04:00 126/79 02/23/20 04:00 37 126/79 Mechanical Ventilator 40 02/23/20 04:00 102.3 126 31 137/92 (107) 100 02/23/20 04:00 Mechanical Ventilator Mechanical Ventilator 02/23/20 03:45 97 22 130/79 (96) 100 02/23/20 03:30 95 22 136/74 (94) 100 02/23/20 03:10 112 29 40 02/23/20 03:00 101.3 114 29 127/82 (97) 100 02/23/20 03:00 135/70 02/23/20 03:00 26 135/70 Mechanical Ventilator 40 02/23/20 02:30 120 31 133/81 (98) 100 02/23/20 02:00 125/70 20 02:00 26 135/75 Mechanical Ventilator 40 02/23/20 02:00 110 25 117/66 (83) 100 02/23/20 01:30 133 36 130/66 (87) 100 02/23/20 01:00 136 33 127/77 (94) 100 02/23/20 01:00 142/90 02/23/20 01:00 31 142/90 Mechanical Ventilator 40 02/23/20 00:45 121 28 151/79 (103) 100 02/23/20 00:45 36 150/40 Mechanical Ventilator 40 02/23/20 00:30 36 138/80 Mechanical Ventilator 40 02/23/20 00:30 130 35 145/81 (102) 100 02/23/20 00:15 34 140/86 Mechanical Ventilator 40 02/23/20 00:15 133 38 145/86 (105) 100 02/23/20 00:00 138 02/23/20 00:00 145/86 02/23/20 00:00 42 145/86 Mechanical Ventilator 40 02/23/20 00:00 Mechanical Ventilator Mechanical Ventilator 02/23/20 00:00 40 02/23/20 00:00 103.0 135 39 128/80 (96) 100 02/22/20 23:55 26 150/82 Mechanical Ventilator 40 02/22/20 23:30 133 39 140/81 (100) 100 02/22/20 23:26 110/62 02/22/20 23:01 135 36 40 02/22/20 23:00 38 110/62 Mechanical Ventilator 40 02/22/20 23:00 131 37 139/76 (97) 100 02/22/20 22:30 131 37 139/77 (97) 100 02/22/20 22:00 30 137/81 Mechanical Ventilator 40 02/22/20 22:00 134 37 143/77 (99) 100 02/22/20 21:30 133 38 118/77 (91) 100 02/22/20 21:03 79/45 02/22/20 21:00 131 37 126/76 (93) 100 20 21:00 122/45 20 20:59 132 37 122/80 (94) 100 20 20:45 121 22 79/46 (57) 100 20 20:30 121 29 119/71 (87) 100 20 20:00 Mechanical Ventilator Mechanical Ventilator 02/22/20 20:00 22 79/54 Mechanical Ventilator 20 20:00 22 79/54 Mechanical Ventilator 02/22/20 20:00 20 123/83 Mechanical Ventilator 40 20 20:00 132/94 20 20:00 132/94 20 20:00 40 02/22/20 20:00 121 02/22/20 20:00 99.8 119 29 123/68 (86) 100 02/22/20 19:30 125 32 114/69 (84) 100 02/22/20 19:20 125 32 40 02/22/20 19:00 120 27 108/62 (77) 100 02/22/20 18:17 79/45 02/22/20 18:00 128 24 76/39 (51) 98 02/22/20 17:30 130 25 87/48 (61) 98 02/22/20 17:15 138 30 95/51 (66) 99 02/22/20 17:00 134 27 91/54 (66) 98 02/22/20 16:45 134 24 90/62 (71) 98 02/22/20 16:32 135 27 90/55 (67) 98 02/22/20 16:30 136 26 87/56 (66) 98 02/22/20 16:15 137 25 97/55 (69) 98 20 16:08 137 26 89/56 (67) 99 02/22/20 16:06 138 27 78/47 (57) 99 02/22/20 16:05 138 26 78/41 (53) 99 02/22/20 16:00 Mechanical Ventilator Mechanical Ventilator 02/22/20 16:00 141 02/22/20 16:00 40 02/22/20 16:00 103.0 137 27 99 02/22/20 15:56 137 25 81/40 (54) 99 02/22/20 15:53 136 25 82/39 (53) 100 02/22/20 15:36 139 25 72/31 (45) 100 02/22/20 15:30 140 25 74/34 (47) 99 02/22/20 15:25 135 28 40 02/22/20 15:15 142 26 79/33 (48) 98 02/22/20 15:00 140 25 73/30 (44) 98 02/22/20 14:15 145 27 69/34 (46) 97 02/22/20 14:01 112/40 02/22/20 14:00 148 25 84/36 (52) 95 02/22/20 14:00 32 112/50 Mechanical Ventilator 02/22/20 13:45 151 27 100/44 (62) 100 02/22/20 13:30 156 29 154/110 (125) 98 02/22/20 13:15 160 34 139/109 (119) 86 02/22/20 13:00 158 44 153/104 (120) 100 02/22/20 12:45 153 20 125/81 (96) 99 02/22/20 12:30 141 31 112/59 (76) 100 02/22/20 12:15 130 26 104/57 (73) 100 02/22/20 12:00 40 02/22/20 12:00 Mechanical Ventilator Mechanical Ventilator 02/22/20 12:00 126 02/22/20 12:00 103.0 135 29 104/55 (71) 99 Intake and Output 02/22/20 02/23/20 19:00 07:00 Intake Total 1205.592 ml 927.199 ml Output Total 500 ml 1370 ml Balance 705.592 ml -442.801 ml IV Total 1205.592 ml 927.199 ml Output Urine Total 450 ml 970 ml Gastric Drainage Total 50 ml 400 ml Chest Tube Drainage Total 0 ml # Bowel Movements 2 General Appearance: no acute distress HEENT: normocephalic Respiratory: chest wall non-tender, lungs clear Cardiovascular: normal peripheral pulses Abdomen: normal bowel sounds Laboratory Tests 02/23/20 04:00: White Blood Count 32.4*H, Red Blood Count 3.15L, Hemoglobin 9.8L, Hematocrit 28.1L, Mean Corpuscular Volume 89, Mean Corpuscular Hemoglobin 31.2H, Mean Corpuscular Hemoglobin Concent 35.0, Red Cell Distribution Width 11.4L, Platelet Count 65L, Mean Platelet Volume 10.0, Neutrophils (%) (Auto) , Lymphocytes (%) (Auto) , Monocytes (%) (Auto) , Eosinophils (%) (Auto) , Basophils (%) (Auto) , Differential Total Cells Counted 100, Neutrophils % ( Manual) 73, Lymphocytes % (Manual) 8L, Monocytes % (Manual) 6, Eosinophils % ( Manual) 2, Basophils % (Manual) 0, Band Neutrophils 11H, Platelet Estimate DecreasedL, Platelet Morphology Normal, Hypochromasia 1+, Sodium Level 140, Potassium Level 2.4*L, Chloride Level 105, Carbon Dioxide Level 19L, Anion Gap 15, Blood Urea Nitrogen 12, Creatinine 1.1#, Estimat Glomerular Filtration Rate 52.6, Glucose Level 152H, Uric Acid 2.8, Calcium Level 7.9L, Phosphorus Level 2.3L, Magnesium Level 1.4L, Total Bilirubin 2.4H, Direct Bilirubin 1.9H, Gamma Glutamyl Transpeptidase 1185H, Aspartate Amino Transf (AST/SGOT) 67H, Alanine Aminotransferase (ALT/SGPT) 114H, Alkaline Phosphatase 335H, Pro-B-Type Natriuretic Peptide 95791D, Total Protein 5.8L, Albumin 2.0L, Globulin 3.8, Albumin/Globulin Ratio 0.5L, Triglycerides Level 295H, Cortisol AM Sample [ Pending], Phenytoin (Dilantin) Level 3.3L 02/23/20 08:30: Phenytoin (Dilantin) Level 18.0 Current Medications Medications (Trade) Dose Ordered Sig/Bere Route PRN Reason Start Time Stop Time Status Last Admin Dose Admin Acetaminophen (Tylenol) 650 mg Q4H PRN GT Temp >100.5 02/19/20 22:00 03/20/20 21:59 02/23/20 11:00 Albumin Human 100 ml @ 100 mls/hr ONCE ONCE IV 02/23/20 11:30 02/23/20 12:29 Chlorhexidine Gluconate (Jane-Hex 2%) 1 applic DAILY@2000 TOPIC 02/20/20 20:00 05/20/20 19:59 02/22/20 20:22 Dopamine HCl/ Dextrose 250 ml @ 0 mls/hr Q24H IV 02/19/20 21:00 05/19/20 20:59 02/21/20 03:10 Levetiracetam 100 ml @ 400 mls/hr Q12HR IVPB 02/20/20 09:00 05/20/20 08:59 02/23/20 09:21 Lorazepam (Ativan 2mg/ml 1ml) 2 mg Q6H PRN IV For Seizures 02/19/20 22:00 02/26/20 21:59 Magnesium Sulfate 100 ml @ 100 mls/hr Q1H IVPB 02/23/20 08:00 02/23/20 11:59 02/23/20 10:45 Meropenem 1 gm/ Sodium Chloride 55 ml @ 110 mls/hr Q8HR IVPB 02/19/20 22:00 02/28/20 21:59 02/23/20 05:41 Norepinephrine Bitartrate 16 mg/ Dextrose 566 ml @ 0 mls/hr Q24H IV 02/22/20 23:00 03/23/20 22:59 02/23/20 06:02 Pantoprazole (Protonix) 40 mg DAILY IVP 02/20/20 09:00 03/21/20 08:59 02/23/20 08:17 Phenytoin 100 mg/ Sodium Chloride 57 ml @ 114 mls/hr Q12HR IVPB 02/24/20 21:00 03/21/20 00:00 Potassium Chloride 100 ml @ 50 mls/hr Q2H IVPB 02/23/20 08:00 02/23/20 13:59 02/23/20 10:45 Potassium Chloride (K-Dur) 40 meq Q8HR GT 02/23/20 14:00 05/23/20 13:59 Propofol 100 ml @ 0 mls/hr Q24H IV 02/22/20 01:00 02/24/20 00:59 02/23/20 07:00 Vancomycin HCl (Vanco rx to dose) 1 ea DAILY PRN MISC Per rx protocol 02/19/20 21:15 03/20/20 21:14 Vancomycin HCl 1 gm/Sodium Chloride 275 ml @ 183.708 mls/hr Q8H IVPB 02/21/20 14:00 02/26/20 13:59 02/23/20 05:40 Assessment/Plan Assessment/Plan IMPRESSION: 1. Status post left pneumothorax with chest tube in place. 2. Tracheal bleeding, status post removal. 3. Respiratory failure, status post orotracheal intubation. 4. Transaminitis. 5. Leukocytosis. 6. Chronic encephalopathy. 7. Chronic respiratory failure. DISCUSSION: Continue assist-control mechanical ventilation. I will decrease PEEP as much as possible. Keep chest tube to suction. Broad-spectrum antibiotics. Enteral feedings. Continue medications. Follow carefully. Seen by surgery; will need trach revision Family reportedly considering terminal extubation Will monitor Celestino Haile M.D. Celestino Haile MD February 23, 2020 11:51
[2020-02-23] MEDS ORDERED: fentaNYL 2500mcg/NS 250ml 250 ML IV PRN (12:15)
[2020-02-23] MEDS ORDERED: Morphine Sulfate 2mg/ml Inj(IV/IM USE ONLY) IVP PRN (12:15)
--- NOTE | 2020-02-23 14:36 | Surgery Progress Note ---
Surgery Progress Note Subjective Additional Comments Consideration and plan for revision tracheostomy. Care discussion had per report with family who is considered withdrawing care given condition wishes. Currently DNR. Family potentially coming in on Friday and make final decision will hold on tracheostomy until then Objective Last 24 Hour Vital Signs Date Time Temp Pulse Resp B/P (MAP) Pulse Ox O2 Delivery O2 Flow Rate FiO2 02/23/20 13:59 133 32 84/55 (65) 100 02/23/20 13:30 134 32 80/59 (66) 99 02/23/20 13:00 132 33 83/59 (67) 99 02/23/20 12:30 132 35 91/61 (71) 99 02/23/20 12:00 134 02/23/20 12:00 136 39 79/49 (59) 99 02/23/20 11:30 157 43 88/51 (63) 99 02/23/20 11:30 101.0 02/23/20 11:00 133 43 160/56 (90) 99 02/23/20 10:45 154 46 40 02/23/20 10:30 163 44 122/62 (82) 99 02/23/20 10:00 145 40 109/41 (63) 99 02/23/20 09:30 111 23 89/60 (70) 100 02/23/20 09:00 100.8 111 24 92/59 (70) 100 02/23/20 08:30 111 24 94/59 (71) 100 02/23/20 08:00 109 24 87/55 (66) 100 02/23/20 08:00 133 02/23/20 07:30 112 25 86/56 (66) 100 02/23/20 07:10 124 33 40 02/23/20 07:00 101.3 115 26 90/55 (67) 100 02/23/20 07:00 24 92/59 Mechanical Ventilator 40 02/23/20 06:30 142 35 02/23/20 06:02 155/113 02/23/20 06:00 96/62 02/23/20 06:00 35 96/62 Mechanical Ventilator 40 02/23/20 06:00 143 35 96/62 (73) 100 02/23/20 05:30 144 38 150/39 (76) 02/23/20 05:00 169/53 02/23/20 05:00 38 169/53 Mechanical Ventilator 40 02/23/20 05:00 140 39 155/99 (117) 100 02/23/20 04:30 130 23 166/81 (109) 100 02/23/20 04:00 131 02/23/20 04:00 40 02/23/20 04:00 126/79 5 04:00 37 126/79 Mechanical Ventilator 40 02/23/20 04:00 102.3 126 31 137/92 (107) 100 02/23/20 04:00 Mechanical Ventilator Mechanical Ventilator 02/23/20 03:45 97 22 130/79 (96) 100 02/23/20 03:30 95 22 136/74 (94) 100 02/23/20 03:10 112 29 40 02/23/20 03:00 101.3 114 29 127/82 (97) 100 02/23/20 03:00 135/70 02/23/20 03:00 26 135/70 Mechanical Ventilator 40 02/23/20 02:30 120 31 133/81 (98) 100 02/23/20 02:00 125/70 02/23/20 02:00 26 135/75 Mechanical Ventilator 40 02/23/20 02:00 110 25 117/66 (83) 100 02/23/20 01:30 133 36 130/66 (87) 100 02/23/20 01:00 136 33 127/77 (94) 100 02/23/20 01:00 142/90 5 01:00 31 142/90 Mechanical Ventilator 40 02/23/20 00:45 121 28 151/79 (103) 100 02/23/20 00:45 36 150/40 Mechanical Ventilator 40 02/23/20 00:30 36 138/80 Mechanical Ventilator 40 02/23/20 00:30 130 35 145/81 (102) 100 02/23/20 00:15 34 140/86 Mechanical Ventilator 40 02/23/20 00:15 133 38 145/86 (105) 100 02/23/20 00:00 138 520 00:00 145/86 520 00:00 42 145/86 Mechanical Ventilator 40 02/23/20 00:00 Mechanical Ventilator Mechanical Ventilator 02/23/20 00:00 40 5 00:00 103.0 135 39 128/80 (96) 100 02/22/20 23:55 26 150/82 Mechanical Ventilator 40 20 23:30 133 39 140/81 (100) 100 1920 23:26 110/62 20 23:01 135 36 40 20 23:00 38 110/62 Mechanical Ventilator 40 02/22/20 23:00 131 37 139/76 (97) 100 20 22:30 131 37 139/77 (97) 100 20 22:00 30 137/81 Mechanical Ventilator 40 20 22:00 134 37 143/77 (99) 100 20 21:30 133 38 118/77 (91) 100 02/22/20 21:03 79/45 02/22/20 21:00 131 37 126/76 (93) 100 20 21:00 122/45 02/22/20 20:59 132 37 122/80 (94) 100 02/22/20 20:45 121 22 79/46 (57) 100 02/22/20 20:30 121 29 119/71 (87) 100 20 20:00 Mechanical Ventilator Mechanical Ventilator 02/22/20 20:00 22 79/54 Mechanical Ventilator 20 20:00 22 79/54 Mechanical Ventilator 02/22/20 20:00 20 123/83 Mechanical Ventilator 40 20 20:00 132/94 20 20:00 132/94 20 20:00 40 20 20:00 121 02/22/20 20:00 99.8 119 29 123/68 (86) 100 02/22/20 19:30 125 32 114/69 (84) 100 20 19:20 125 32 40 19/20 19:00 120 27 108/62 (77) 100 20 18:17 79/45 02/21/20 18:00 128 24 76/39 (51) 98 02/21/20 17:30 130 25 87/48 (61) 98 02/21/20 17:15 138 30 95/51 (66) 99 02/21/20 17:00 134 27 91/54 (66) 98 19/20 16:45 134 24 90/62 (71) 98 02/22/20 16:32 135 27 90/55 (67) 98 02/22/20 16:30 136 26 87/56 (66) 98 02/22/20 16:15 137 25 97/55 (69) 98 02/22/20 16:08 137 26 89/56 (67) 99 02/22/20 16:06 138 27 78/47 (57) 99 02/22/20 16:05 138 26 78/41 (53) 99 02/22/20 16:00 Mechanical Ventilator Mechanical Ventilator 02/22/20 16:00 141 02/22/20 16:00 40 02/22/20 16:00 103.0 137 27 99 02/22/20 15:56 137 25 81/40 (54) 99 02/22/20 15:53 136 25 82/39 (53) 100 02/22/20 15:36 139 25 72/31 (45) 100 02/22/20 15:30 140 25 74/34 (47) 99 02/22/20 15:25 135 28 40 02/22/20 15:15 142 26 79/33 (48) 98 02/22/20 15:00 140 25 73/30 (44) 98 I&O Intake and Output 02/22/20 02/23/20 19:00 07:00 Intake Total 1205.592 ml 927.199 ml Output Total 500 ml 1370 ml Balance 705.592 ml -442.801 ml IV Total 1205.592 ml 927.199 ml Output Urine Total 450 ml 970 ml Gastric Drainage Total 50 ml 400 ml Chest Tube Drainage Total 0 ml # Bowel Movements 2 Dressing: other Wound: other Drains: other Cardiovascular: RSR Respiratory: decreased breath sounds Abdomen: soft, non-tender, present bowel sounds Extremities: no cyanosis Laboratory Tests Test 02/23/20 04:00 02/23/20 08:30 White Blood Count 32.4 K/UL (4.8-10.8) *H Red Blood Count 3.15 M/UL (4.20-5.40) L Hemoglobin 9.8 G/DL (12.0-16.0) L Hematocrit 28.1 % (37.0-47.0) L Mean Corpuscular Volume 89 FL (80-99) Mean Corpuscular Hemoglobin 31.2 PG (27.0-31.0) H Mean Corpuscular Hemoglobin Concent 35.0 G/DL (32.0-36.0) Red Cell Distribution Width 11.4 % (11.6-14.8) L Platelet Count 65 K/UL (150-450) L Mean Platelet Volume 10.0 FL (6.5-10.1) Neutrophils (%) (Auto) % (45.0-75.0) Lymphocytes (%) (Auto) % (20.0-45.0) Monocytes (%) (Auto) % (1.0-10.0) Eosinophils (%) (Auto) % (0.0-3.0) Basophils (%) (Auto) % (0.0-2.0) Differential Total Cells Counted 100 Neutrophils % (Manual) 73 % (45-75) Lymphocytes % (Manual) 8 % (20-45) L Monocytes % (Manual) 6 % (1-10) Eosinophils % (Manual) 2 % (0-3) Basophils % (Manual) 0 % (0-2) Band Neutrophils 11 % (0-8) H Platelet Estimate Decreased L Platelet Morphology Normal Hypochromasia 1+ Sodium Level 140 MMOL/L (136-145) Potassium Level 2.4 MMOL/L (3.5-5.1) *L Chloride Level 105 MMOL/L (98-107) Carbon Dioxide Level 19 MMOL/L (21-32) L Anion Gap 15 mmol/L (5-15) Blood Urea Nitrogen 12 mg/dL (7-18) Creatinine 1.1 MG/DL (0.55-1.30) # Estimat Glomerular Filtration Rate 52.6 mL/min (>60) Glucose Level 152 MG/DL (74-106) H Uric Acid 2.8 MG/DL (2.6-7.2) Calcium Level 7.9 MG/DL (8.5-10.1) L Phosphorus Level 2.3 MG/DL (2.5-4.9) L Magnesium Level 1.4 MG/DL (1.8-2.4) L Total Bilirubin 2.4 MG/DL (0.2-1.0) H Direct Bilirubin 1.9 MG/DL (0.0-0.3) H Gamma Glutamyl Transpeptidase 1185 U/L (5-85) H Aspartate Amino Transf (AST/SGOT) 67 U/L (15-37) H Alanine Aminotransferase (ALT/SGPT) 114 U/L (12-78) H Alkaline Phosphatase 335 U/L (46-116) H Pro-B-Type Natriuretic Peptide 88958 pg/mL (0-125) H Total Protein 5.8 G/DL (6.4-8.2) L Albumin 2.0 G/DL (3.4-5.0) L Globulin 3.8 g/dL Albumin/Globulin Ratio 0.5 (1.0-2.7) L Triglycerides Level 295 MG/DL (30-150) H Cortisol AM Sample 20.0 UG/DL Phenytoin (Dilantin) Level 3.3 ug/mL (10-20) L 18.0 ug/mL (10-20) Plan Problems: (1) Pneumothorax Assessment & Plan: cont chest tube to suction am cxr will monitor 1. Left-sided pneumothorax, approximately 50% by volume. 2. Extensive subcutaneous emphysema throughout the chest wall and neck soft tissues bilaterally. s/p chest tube Lungs: Persistent mild increased interstitial markings. The lungs are otherwise clear without focal consolidation. Pleural space: Interval significant improvement of the left-sided pneumothorax, no longer well seen. Heart: Unremarkable. No cardiomegaly. Mediastinum: Unremarkable. Bones/joints: Unremarkable. Soft tissues: Persistent but improved subcutaneous emphysema in the chest reed and neck soft tissues bilaterally. Tubes, lines and devices: Left-sided chest tube in place, with expected positioning. Endotracheal tube tip 3.2 cm above the emerita. Telemetry leads overlie the thorax. IMPRESSION: 1. Left-sided chest tube in place, with expected positioning. 2. Interval significant improvement of the left-sided pneumothorax, which is no longer well seen. 3. Persistent mild increased interstitial markings. This is nonspecific but may suggest mild interstitial edema or a mild pneumonitis. No focal consolidation. 4. Improved subcutaneous emphysema in the chest reed and neck soft tissues bilaterally. (2) Respiratory arrest Assessment & Plan: TRACH REMOVED, SITE BLEEDING. LT CHEST TUNE TO SUCTION. FEMORAL ACCESS will plan for trach new when stable (3) Respiratory distress (4) Tracheostomy complication Assessment & Plan: trach complication intubated on support will need to revise trach once stable thank you Hold on trach revision his family is considering terminal extubation At withdrawal of care Ant Lee February 23, 2020 14:36
--- NOTE | 2020-02-23 19:00 | Progress Note ---
DATE: 02/23/2020 SUBJECTIVE: This is a 49-year-old female, currently in bed in ICU, nonverbal, lethargic. OBJECTIVE: VITAL SIGNS: Blood pressure is 100/40, pulse 84, respirations 18, temperature no fever. HEENT: Eyes are closed. NECK: Supple. CHEST: Bilateral decreased breath sounds. CARDIOVASCULAR: Regular rhythm. Tachycardia. ABDOMEN: Soft. G-tube in place. EXTREMITIES: CCE. ASSESSMENT: 1. Sepsis. 2. Aspiration pneumonia. 3. Metabolic encephalopathy. PLAN: 1. We will continue IV antibiotics. 2. Continue bronchodilator treatments. 3. G-tube feeding. Darin Delgado M.D. DR: CRISTELA JOB#: [id number] CC:
[2020-02-23] MEDS: Dyna-Hex 2% Top Sol 2oz TOPIC SCH (19:56)
[2020-02-23] MEDS: DOPamine 400mg/250ml 250 ML IV SCH (21:00)
[2020-02-24] VITALS (43 sets, daily range): BP systolic 91–141; BP diastolic 60–113
[2020-02-24] MEDS: Norepinephrine Bitartrate 16 MG in D5W 500ml 550 ML IV SCH (00:12)
[2020-02-24 04:53] LABS: HEMATOCRIT 22.9 % (37.0-47.0); HEMOGLOBIN 8.1 G/DL (12.0-16.0); MEAN CORPUSCULAR VOLUME 88 FL (80-99); PLATELET COUNT 37 K/UL (150-450); RED CELL DISTRIBUTION WIDTH 11.2 % (11.6-14.8)
[2020-02-24 05:13] LABS: WHITE BLOOD COUNT 32.8 K/UL (4.8-10.8)
[2020-02-24] MEDS: Meropenem 1gm in NS 55ml IVPB SCH ×3 (05:39→21:48)
[2020-02-24] MEDS: Vancomycin 1 GM in NS 275 ML IVPB SCH ×3 (05:40→21:49)
[2020-02-24 05:41] LABS: ALANINE AMINOTRANSFERASE 72 U/L (12-78); ALBUMIN/GLOBULIN RATIO 0.6 (1.0-2.7); ALKALINE PHOSPHATASE 246 U/L (46-116); ANION GAP 12 mmol/L (5-15); ASPARTATE AMINO TRANSFERASE 40 U/L (15-37); BILIRUBIN,TOTAL 1.9 MG/DL (0.2-1.0); BLOOD UREA NITROGEN 11 mg/dL (7-18); CALCIUM 7.4 MG/DL (8.5-10.1); CARBON DIOXIDE 22 MMOL/L (21-32); CHLORIDE 111 MMOL/L (98-107); POTASSIUM 2.8 MMOL/L (3.5-5.1); SODIUM 145 MMOL/L (136-145)
[2020-02-24 05:48] LABS: PHOSPHORUS 1.5 MG/DL (2.5-4.9)
[2020-02-24] MEDS ORDERED: Potassium Phosphate 20 MM in NS 275 ML IV ONE (08:00)
[2020-02-24 08:36] LABS: BILIRUBIN,DIRECT 1.5 MG/DL (0.0-0.3)
[2020-02-24] MEDS ORDERED: D5W IV SCH (09:00)
[2020-02-24] MEDS ORDERED: POTASSIUM CHLORIDE IV SCH (09:00)
[2020-02-24] MEDS: Pantoprazole Inj IVP SCH ×2 (09:05→21:05)
[2020-02-24] MEDS: levETIRAcetam 500mg/NS100ml 100 ML IVPB SCH ×2 (09:05→21:07)
--- NOTE | 2020-02-24 10:26 | Nephrology Progress Note ---
Assessment/Plan Problem List: (1) Electrolyte imbalance (2) Elevated liver enzymes (3) Respiratory failure (4) Hypoalbuminemia (5) Proteinuria (6) Leukocytosis Assessment HypoKalemia Proteinuria, hypoalbuminemia, BUN and creatinine within normal range Chronic respiratory failure Status post left pneumothorax with chest tube in place Transaminitis Leukocytosis Sepsis, bacteremia with gram-positive cocci Anoxic encephalopathy Seizure disorder Penicillin allergy Hypertension Plan February 23: We will clamp the GT and disconnected from suction Increase Protonix to every 12 hours IV IV Reglan 100 mEq of KCl intravenously Continue to monitor electrolytes Discussed with RN February 22: Low potassium is replaced intravenously and via GT Stool for C. difficile sent Will monitor electrolytes Continue per consultants regarding normalizing LFTs and underlying sepsis February 21: Leukocytosis worsened, Blood pressure borderline low LFTs remain elevated Abnormal magnesium potassium and phosphorus on the can panel Supplements for potassium magnesium and phosphorus ordered and continue as needed Continue to check calcium and phosphorus and liver function tests Continue per ID and pulmonary Keep the blood pressure and blood sugar in check Per orders Subjective ROS Limited/Unobtainable: Yes Objective Objective Last 24 Hour Vital Signs Date Time Temp Pulse Resp B/P (MAP) Pulse Ox O2 Delivery O2 Flow Rate FiO2 02/24/20 10:00 85 21 98/64 (75) 100 02/24/20 09:30 85 21 103/65 (78) 100 02/24/20 09:00 85 22 100/62 (75) 100 02/24/20 08:30 87 23 94/65 (75) 100 02/24/20 08:00 99.0 86 21 91/60 (70) 100 02/24/20 08:00 40 02/24/20 08:00 Mechanical Ventilator Mechanical Ventilator 02/24/20 07:40 89 20 40 02/24/20 07:30 90 21 102/63 (76) 100 02/24/20 07:00 91 20 101/66 (78) 100 02/24/20 06:30 90 21 02/24/20 06:00 92 21 105/74 (84) 100 02/24/20 06:00 96/62 02/24/20 05:30 94 23 95/62 (73) 100 02/24/20 05:00 95 22 106/64 (78) 100 02/24/20 05:00 106/70 02/24/20 04:30 97 23 111/70 (84) 100 02/24/20 04:00 40 02/24/20 04:00 111/68 02/24/20 04:00 Mechanical Ventilator Mechanical Ventilator 02/24/20 04:00 99.0 100 25 111/69 (83) 100 02/24/20 04:00 102 02/24/20 03:30 100 25 105/65 (78) 100 02/24/20 03:06 102 24 40 02/24/20 03:00 104/64 02/24/20 03:00 106 27 101/64 (76) 100 02/24/20 02:30 102 25 103/70 (81) 100 02/24/20 02:00 92 22 99/66 (77) 100 02/24/20 02:00 101/65 02/24/20 01:30 96 26 101/70 (80) 100 02/24/20 01:00 93/61 02/24/20 01:00 97 25 97/62 (74) 100 02/24/20 00:30 96 23 104/65 (78) 100 02/24/20 00:12 96/64 02/24/20 00:00 98.7 96 23 96/64 (75) 100 02/24/20 00:00 98/62 02/24/20 00:00 Mechanical Ventilator Mechanical Ventilator 02/23/20 23:30 97 25 100/68 (79) 100 02/23/20 23:00 106/71 02/23/20 23:00 87 20 108/70 (83) 100 02/23/20 22:51 91 23 40 02/23/20 22:30 85 24 113/71 (85) 100 02/23/20 22:00 107/71 02/23/20 22:00 90 24 105/67 (80) 100 02/23/20 21:30 92 22 107/73 (84) 100 02/23/20 21:00 111 33 116/74 (88) 100 02/23/20 21:00 111/72 02/23/20 21:00 116/74 20 20:30 113 35 112/78 (89) 64 02/23/20 20:15 115 37 127/67 (87) 55 02/23/20 20:00 40 02/23/20 20:00 91 02/23/20 20:00 Mechanical Ventilator Mechanical Ventilator 02/23/20 20:00 127/67 5/20 20:00 98.0 111 32 132/85 (101) 100 20 19:30 90 24 114/72 (86) 100 20 19:11 101 27 40 520 19:00 97.9 114 32 112/80 (91) 100 20 18:30 113 35 125/80 (95) 99 20 18:00 123/81 520 18:00 113 36 122/75 (91) 100 20 17:30 102 25 110/74 (86) 100 20 17:00 95/66 520 17:00 106 22 85/63 (70) 100 02/23/20 16:30 110 26 81/57 (65) 100 02/23/20 16:00 Mechanical Ventilator Mechanical Ventilator 02/23/20 16:00 40 02/23/20 16:00 99.3 119 27 80/60 (67) 100 02/23/20 16:00 76/54 520 15:30 128 33 81/61 (68) 100 20 15:27 92/63 520 15:23 129 20 15:00 92/63 02/23/20 15:00 139 29 93/65 (74) 100 02/23/20 14:50 130 31 40 02/23/20 14:45 129 28 74/52 (59) 100 02/23/20 14:30 131 26 76/55 (62) 100 02/23/20 14:15 143 38 83/58 (66) 89 20 14:00 84/55 520 14:00 133 32 80/59 (66) 100 20 13:59 133 32 84/55 (65) 100 20 13:30 134 32 80/59 (66) 99 20 13:15 133 35 85/62 (70) 100 20 13:00 91/61 520 13:00 132 33 83/59 (67) 99 20 12:45 100.3 133 34 87/62 (70) 02/23/20 12:30 132 35 91/61 (71) 99 02/23/20 12:15 137 38 88/51 (63) 02/23/20 12:04 41 88/51 Mechanical Ventilator 40 02/23/20 12:00 Mechanical Ventilator Mechanical Ventilator 02/23/20 12:00 134 02/23/20 12:00 40 02/23/20 12:00 88/51 02/23/20 12:00 41 88/51 Mechanical Ventilator 40 02/23/20 12:00 136 39 79/49 (59) 99 02/23/20 11:45 157 44 169/57 (94) 100 02/23/20 11:45 43 169/45 Mechanical Ventilator 40 02/23/20 11:30 157 43 88/51 (63) 99 02/23/20 11:30 44 166/150 Mechanical Ventilator 40 02/23/20 11:30 101.0 02/23/20 11:15 164 43 160/56 (90) 100 02/23/20 11:15 43 116/150 Mechanical Ventilator 40 02/23/20 11:00 133 43 160/56 (90) 99 02/23/20 11:00 160/56 02/23/20 11:00 43 160/56 Mechanical Ventilator 40 02/23/20 10:45 154 46 40 02/23/20 10:30 163 44 122/62 (82) 99 Intake and Output 02/23/20 02/24/20 19:00 07:00 Intake Total 3311.8489 ml 1826.64 ml Output Total 1095 ml 1326 ml Balance 2216.8489 ml 500.64 ml IV Total 3211.8489 ml 1826.64 ml Other 100 ml Output Urine Total 1015 ml 1160 ml Gastric Drainage Total 80 ml 160 ml Chest Tube Drainage Total 6 ml # Bowel Movements 3 3 Laboratory Tests 02/24/20 04:00: White Blood Count 32.8*H, Red Blood Count 2.60L, Hemoglobin 8.1L, Hematocrit 22.9L, Mean Corpuscular Volume 88, Mean Corpuscular Hemoglobin 30.9, Mean Corpuscular Hemoglobin Concent 35.3, Red Cell Distribution Width 11.2L, Platelet Count 37L, Mean Platelet Volume 10.9H, Neutrophils (%) (Auto) , Lymphocytes (%) (Auto) , Monocytes (%) (Auto) , Eosinophils (%) (Auto) , Basophils (%) (Auto) , Differential Total Cells Counted 100, Neutrophils % ( Manual) 72, Lymphocytes % (Manual) 17L, Monocytes % (Manual) 3, Eosinophils % ( Manual) 1, Basophils % (Manual) 0, Myelocytes % 1H, Band Neutrophils 6, Platelet Estimate DecreasedL, Platelet Morphology Normal, Hypochromasia 1+, Sodium Level 145, Potassium Level 2.8L, Chloride Level 111H, Carbon Dioxide Level 22, Anion Gap 12, Blood Urea Nitrogen 11, Creatinine 1.0, Estimat Glomerular Filtration Rate 58.7, Glucose Level 96, Uric Acid 3.0, Calcium Level 7.4L, Phosphorus Level 1.5L, Magnesium Level 2.4, Total Bilirubin 1.9H, Direct Bilirubin 1.5H, Gamma Glutamyl Transpeptidase 623H, Aspartate Amino Transf (AST/ SGOT) 40H, Alanine Aminotransferase (ALT/SGPT) 72, Alkaline Phosphatase 246H, C- Reactive Protein, Quantitative 47.3H, Pro-B-Type Natriuretic Peptide 43656Z, Total Protein 5.2L, Albumin 2.0L, Globulin 3.2, Albumin/Globulin Ratio 0.6L, Vancomycin Level Trough 17.4H Height (Feet): 5 Height (Inches): 4.00 Weight (Pounds): 154 General Appearance: no apparent distress EENT: other - Remains on ventilator Cardiovascular: tachycardia Respiratory/Chest: decreased breath sounds Abdomen: soft, other - GT to suction minimum drainage Objective No change Erich Link MD February 24, 2020 10:26
[2020-02-24] MEDS: Metoclopramide 10mg/2ml Inj IVP SCH ×2 (10:34→21:47)
--- NOTE | 2020-02-24 10:47 | Pulmonology Progress Note ---
Subjective ROS Limited/Unobtainable: Yes Interval Events: None new; remains intubated Constitutional: Reports: no symptoms HEENT: Repors: no symptoms Respiratory: Reports: no symptoms Cardiovascular: Reports: no symptoms Gastrointestinal/Abdominal: Reports: no symptoms Allergies: Coded Allergies: PENICILLINS (Verified Allergy, Unknown, 02/14/18) Objective Last 24 Hour Vital Signs Date Time Temp Pulse Resp B/P (MAP) Pulse Ox O2 Delivery O2 Flow Rate FiO2 02/24/20 10:00 85 21 98/64 (75) 100 02/24/20 09:30 85 21 103/65 (78) 100 02/24/20 09:00 85 22 100/62 (75) 100 02/24/20 08:30 87 23 94/65 (75) 100 02/24/20 08:00 99.0 86 21 91/60 (70) 100 02/24/20 08:00 40 02/24/20 08:00 Mechanical Ventilator Mechanical Ventilator 02/24/20 07:40 89 20 40 02/24/20 07:30 90 21 102/63 (76) 100 02/24/20 07:00 91 20 101/66 (78) 100 02/24/20 06:30 90 21 02/24/20 06:00 92 21 105/74 (84) 100 02/24/20 06:00 96/62 02/24/20 05:30 94 23 95/62 (73) 100 02/24/20 05:00 95 22 106/64 (78) 100 02/24/20 05:00 106/70 02/24/20 04:30 97 23 111/70 (84) 100 02/24/20 04:00 40 02/24/20 04:00 111/68 02/24/20 04:00 Mechanical Ventilator Mechanical Ventilator 02/24/20 04:00 99.0 100 25 111/69 (83) 100 02/24/20 04:00 102 02/24/20 03:30 100 25 105/65 (78) 100 02/24/20 03:06 102 24 40 02/24/20 03:00 104/64 02/24/20 03:00 106 27 101/64 (76) 100 02/24/20 02:30 102 25 103/70 (81) 100 02/24/20 02:00 92 22 99/66 (77) 100 5/21/20 02:00 101/65 520 01:30 96 26 101/70 (80) 100 20 01:00 93/61 520 01:00 97 25 97/62 (74) 100 20 00:30 96 23 104/65 (78) 100 20 00:12 96/64 520 00:00 98.7 96 23 96/64 (75) 100 20 00:00 98/62 520 00:00 Mechanical Ventilator Mechanical Ventilator 02/23/20 23:30 97 25 100/68 (79) 100 20 23:00 106/71 520 23:00 87 20 108/70 (83) 100 20 22:51 91 23 40 520/20 22:30 85 24 113/71 (85) 100 20 22:00 107/71 520 22:00 90 24 105/67 (80) 100 520 21:30 92 22 107/73 (84) 100 520 21:00 111 33 116/74 (88) 100 520/20 21:00 111/72 52020 21:00 116/74 52020 20:30 113 35 112/78 (89) 64 520/20 20:15 115 37 127/67 (87) 55 520/20 20:00 40 520/20 20:00 91 52020 20:00 Mechanical Ventilator Mechanical Ventilator 02/23/20 20:00 127/67 520/20 20:00 98.0 111 32 132/85 (101) 100 520/20 19:30 90 24 114/72 (86) 100 520/20 19:11 101 27 40 5/20/20 19:00 97.9 114 32 112/80 (91) 100 520/20 18:30 113 35 125/80 (95) 99 520/20 18:00 123/81 520/20 18:00 113 36 122/75 (91) 100 52020 17:30 102 25 110/74 (86) 100 520/20 17:00 95/66 5 17:00 106 22 85/63 (70) 100 02/23/20 16:30 110 26 81/57 (65) 100 02/23/20 16:00 Mechanical Ventilator Mechanical Ventilator 02/23/20 16:00 40 02/23/20 16:00 99.3 119 27 80/60 (67) 100 02/23/20 16:00 76/54 02/23/20 15:30 128 33 81/61 (68) 100 02/23/20 15:27 92/63 520 15:23 129 02/23/20 15:00 92/63 02/23/20 15:00 139 29 93/65 (74) 100 02/23/20 14:50 130 31 40 02/23/20 14:45 129 28 74/52 (59) 100 02/23/20 14:30 131 26 76/55 (62) 100 02/23/20 14:15 143 38 83/58 (66) 89 02/23/20 14:00 84/55 02/23/20 14:00 133 32 80/59 (66) 100 02/23/20 13:59 133 32 84/55 (65) 100 02/23/20 13:30 134 32 80/59 (66) 99 02/23/20 13:15 133 35 85/62 (70) 100 02/23/20 13:00 91/61 02/23/20 13:00 132 33 83/59 (67) 99 02/23/20 12:45 100.3 133 34 87/62 (70) 02/23/20 12:30 132 35 91/61 (71) 99 02/23/20 12:15 137 38 88/51 (63) 02/23/20 12:04 41 88/51 Mechanical Ventilator 40 02/23/20 12:00 Mechanical Ventilator Mechanical Ventilator 02/23/20 12:00 134 02/23/20 12:00 40 02/23/20 12:00 88/51 02/23/20 12:00 41 88/51 Mechanical Ventilator 40 02/23/20 12:00 136 39 79/49 (59) 99 02/23/20 11:45 157 44 169/57 (94) 100 02/23/20 11:45 43 169/45 Mechanical Ventilator 40 02/23/20 11:30 157 43 88/51 (63) 99 02/23/20 11:30 44 166/150 Mechanical Ventilator 40 02/23/20 11:30 101.0 02/23/20 11:15 164 43 160/56 (90) 100 02/23/20 11:15 43 116/150 Mechanical Ventilator 40 02/23/20 11:00 133 43 160/56 (90) 99 02/23/20 11:00 160/56 02/23/20 11:00 43 160/56 Mechanical Ventilator 40 Intake and Output 02/23/20 02/24/20 19:00 07:00 Intake Total 3311.8489 ml 1826.64 ml Output Total 1095 ml 1326 ml Balance 2216.8489 ml 500.64 ml IV Total 3211.8489 ml 1826.64 ml Other 100 ml Output Urine Total 1015 ml 1160 ml Gastric Drainage Total 80 ml 160 ml Chest Tube Drainage Total 6 ml # Bowel Movements 3 3 General Appearance: no acute distress HEENT: normocephalic Respiratory: chest wall non-tender, lungs clear Cardiovascular: normal peripheral pulses Abdomen: normal bowel sounds Laboratory Tests 02/24/20 04:00: White Blood Count 32.8*H, Red Blood Count 2.60L, Hemoglobin 8.1L, Hematocrit 22.9L, Mean Corpuscular Volume 88, Mean Corpuscular Hemoglobin 30.9, Mean Corpuscular Hemoglobin Concent 35.3, Red Cell Distribution Width 11.2L, Platelet Count 37L, Mean Platelet Volume 10.9H, Neutrophils (%) (Auto) , Lymphocytes (%) (Auto) , Monocytes (%) (Auto) , Eosinophils (%) (Auto) , Basophils (%) (Auto) , Differential Total Cells Counted 100, Neutrophils % ( Manual) 72, Lymphocytes % (Manual) 17L, Monocytes % (Manual) 3, Eosinophils % ( Manual) 1, Basophils % (Manual) 0, Myelocytes % 1H, Band Neutrophils 6, Platelet Estimate DecreasedL, Platelet Morphology Normal, Hypochromasia 1+, Sodium Level 145, Potassium Level 2.8L, Chloride Level 111H, Carbon Dioxide Level 22, Anion Gap 12, Blood Urea Nitrogen 11, Creatinine 1.0, Estimat Glomerular Filtration Rate 58.7, Glucose Level 96, Uric Acid 3.0, Calcium Level 7.4L, Phosphorus Level 1.5L, Magnesium Level 2.4, Total Bilirubin 1.9H, Direct Bilirubin 1.5H, Gamma Glutamyl Transpeptidase 623H, Aspartate Amino Transf (AST/ SGOT) 40H, Alanine Aminotransferase (ALT/SGPT) 72, Alkaline Phosphatase 246H, C- Reactive Protein, Quantitative 47.3H, Pro-B-Type Natriuretic Peptide 12284E, Total Protein 5.2L, Albumin 2.0L, Globulin 3.2, Albumin/Globulin Ratio 0.6L, Vancomycin Level Trough 17.4H Current Medications Medications (Trade) Dose Ordered Sig/Bere Route PRN Reason Start Time Stop Time Status Last Admin Dose Admin Acetaminophen (Tylenol) 650 mg Q4H PRN GT Temp >100.5 02/19/20 22:00 03/20/20 21:59 02/23/20 11:00 Chlorhexidine Gluconate (Jane-Hex 2%) 1 applic DAILY@2000 TOPIC 02/20/20 20:00 05/20/20 19:59 02/23/20 19:56 Dopamine HCl/ Dextrose 250 ml @ 0 mls/hr Q24H IV 02/19/20 21:00 05/19/20 20:59 02/21/20 03:10 Levetiracetam 100 ml @ 400 mls/hr Q12HR IVPB 02/20/20 09:00 05/20/20 08:59 02/24/20 09:05 Lorazepam (Ativan 2mg/ml 1ml) 2 mg Q6H PRN IV For Seizures 02/19/20 22:00 02/26/20 21:59 Meropenem 1 gm/ Sodium Chloride 55 ml @ 110 mls/hr Q8HR IVPB 02/19/20 22:00 02/28/20 21:59 02/24/20 05:39 Metoclopramide HCl (Reglan) 10 mg Q8HR IVP 02/24/20 10:23 03/25/20 10:22 02/24/20 10:34 Morphine Sulfate (Morphine Sulfate) 2 mg Q4H PRN IVP For Pain 02/23/20 12:15 03/01/20 12:14 Norepinephrine Bitartrate 16 mg/ Dextrose 566 ml @ 0 mls/hr Q24H IV 02/22/20 23:00 03/23/20 22:59 02/24/20 00:12 Pantoprazole (Protonix) 40 mg Q12HR IVP 02/24/20 21:00 03/21/20 08:59 Phenytoin 100 mg/ Sodium Chloride 57 ml @ 114 mls/hr Q12HR IVPB 02/24/20 21:00 03/21/20 00:00 Potassium Chloride 100 meq/ Dextrose 1,050 ml @ 100 mls/hr [id number] IV 02/24/20 09:00 02/24/20 19:29 02/24/20 09:25 Potassium Phosphate 20 mm/ Sodium Chloride 281.6667 ml @ 46.944 m... ONCE ONCE IV 02/24/20 08:00 02/24/20 13:59 02/24/20 09:05 Vancomycin HCl (Vanco rx to dose) 1 ea DAILY PRN MISC Per rx protocol 02/19/20 21:15 03/20/20 21:14 Vancomycin HCl 1 gm/Sodium Chloride 275 ml @ 183.708 mls/hr Q8H IVPB 02/21/20 14:00 02/26/20 13:59 02/24/20 05:40 Assessment/Plan Assessment/Plan IMPRESSION: 1. Status post left pneumothorax with chest tube in place. 2. Tracheal bleeding, status post removal. 3. Respiratory failure, status post orotracheal intubation. 4. Transaminitis. 5. Leukocytosis. 6. Chronic encephalopathy. 7. Chronic respiratory failure. DISCUSSION: Continue assist-control mechanical ventilation. I will decrease PEEP as much as possible. Keep chest tube to suction. Broad-spectrum antibiotics. Enteral feedings. Continue medications. Follow carefully. Seen by surgery; will need trach revision Surgery notes reviewed; family discussion this Friday Family reportedly considering terminal extubation Will monitor Celestino Haile M.D. Celestino Haile MD February 24, 2020 10:47
--- NOTE | 2020-02-24 11:11 | Infectious Diseases Prog Note ---
Assessment/Plan Assessment/Plan A 1. pneumonia COVID 19 X 1: negative 2. Ventilatory dependent respiratory failure 3. shock 4. + blood cultures with coag neg staph likely contaminated 5. pneumothorax 6. hypertension 7. 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 continue iv vancomycin, meropenem add IV Flagyl 2. Stool for C. difficile , repeat COVID19 test 3. continue isolation Subjective ROS Limited/Unobtainable: Yes Constitutional: Reports: other - no fever today Cardiovascular: Reports: other - on Levophed 6 marika/kg/min Gastrointestinal/Abdominal: Reports: diarrhea Allergies: Coded Allergies: PENICILLINS (Verified Allergy, Unknown, 02/14/18) Objective Vital Signs Last 24 Hour Vital Signs Date Time Temp Pulse Resp B/P (MAP) Pulse Ox O2 Delivery O2 Flow Rate FiO2 02/24/20 10:00 85 21 98/64 (75) 100 02/24/20 09:30 85 21 103/65 (78) 100 02/24/20 09:00 85 22 100/62 (75) 100 02/24/20 08:30 87 23 94/65 (75) 100 02/24/20 08:00 99.0 86 21 91/60 (70) 100 02/24/20 08:00 40 02/24/20 08:00 Mechanical Ventilator Mechanical Ventilator 02/24/20 07:40 89 20 40 02/24/20 07:30 90 21 102/63 (76) 100 02/24/20 07:00 91 20 101/66 (78) 100 02/24/20 06:30 90 21 02/24/20 06:00 92 21 105/74 (84) 100 02/24/20 06:00 96/62 02/24/20 05:30 94 23 95/62 (73) 100 02/24/20 05:00 95 22 106/64 (78) 100 02/24/20 05:00 106/70 02/24/20 04:30 97 23 111/70 (84) 100 02/24/20 04:00 40 02/24/20 04:00 111/68 02/24/20 04:00 Mechanical Ventilator Mechanical Ventilator 02/24/20 04:00 99.0 100 25 111/69 (83) 100 02/24/20 04:00 102 02/24/20 03:30 100 25 105/65 (78) 100 02/24/20 03:06 102 24 40 20 03:00 104/64 20 03:00 106 27 101/64 (76) 100 02/24/20 02:30 102 25 103/70 (81) 100 20 02:00 92 22 99/66 (77) 100 20 02:00 101/65 20 01:30 96 26 101/70 (80) 100 20 01:00 93/61 20 01:00 97 25 97/62 (74) 100 02/24/20 00:30 96 23 104/65 (78) 100 02/24/20 00:12 96/64 02/24/20 00:00 98.7 96 23 96/64 (75) 100 02/24/20 00:00 98/62 02/24/20 00:00 Mechanical Ventilator Mechanical Ventilator 02/23/20 23:30 97 25 100/68 (79) 100 20 23:00 106/71 520 23:00 87 20 108/70 (83) 100 02/23/20 22:51 91 23 40 20 22:30 85 24 113/71 (85) 100 20 22:00 107/71 20 22:00 90 24 105/67 (80) 100 20 21:30 92 22 107/73 (84) 100 20/20 21:00 111 33 116/74 (88) 100 2020 21:00 111/72 52020 21:00 116/74 520/20 20:30 113 35 112/78 (89) 64 20 20:15 115 37 127/67 (87) 55 20/20 20:00 40 520/20 20:00 91 52020 20:00 Mechanical Ventilator Mechanical Ventilator 02/23/20 20:00 127/67 520/20 20:00 98.0 111 32 132/85 (101) 100 5/20/20 19:30 90 24 114/72 (86) 100 520/20 19:11 101 27 40 52020 19:00 97.9 114 32 112/80 (91) 100 02/23/20 18:30 113 35 125/80 (95) 99 02/23/20 18:00 123/81 5 18:00 113 36 122/75 (91) 100 02/23/20 17:30 102 25 110/74 (86) 100 02/23/20 17:00 95/66 02/23/20 17:00 106 22 85/63 (70) 100 02/23/20 16:30 110 26 81/57 (65) 100 02/23/20 16:00 Mechanical Ventilator Mechanical Ventilator 02/23/20 16:00 40 02/23/20 16:00 99.3 119 27 80/60 (67) 100 02/23/20 16:00 76/54 02/23/20 15:30 128 33 81/61 (68) 100 02/23/20 15:27 92/63 02/23/20 15:23 129 02/23/20 15:00 92/63 02/23/20 15:00 139 29 93/65 (74) 100 02/23/20 14:50 130 31 40 02/23/20 14:45 129 28 74/52 (59) 100 02/23/20 14:30 131 26 76/55 (62) 100 02/23/20 14:15 143 38 83/58 (66) 89 02/23/20 14:00 84/55 02/23/20 14:00 133 32 80/59 (66) 100 02/23/20 13:59 133 32 84/55 (65) 100 02/23/20 13:30 134 32 80/59 (66) 99 02/23/20 13:15 133 35 85/62 (70) 100 02/23/20 13:00 91/61 02/23/20 13:00 132 33 83/59 (67) 99 02/23/20 12:45 100.3 133 34 87/62 (70) 02/23/20 12:30 132 35 91/61 (71) 99 02/23/20 12:15 137 38 88/51 (63) 02/23/20 12:04 41 88/51 Mechanical Ventilator 40 02/23/20 12:00 Mechanical Ventilator Mechanical Ventilator 02/23/20 12:00 134 02/23/20 12:00 40 02/23/20 12:00 88/51 02/23/20 12:00 41 88/51 Mechanical Ventilator 40 02/23/20 12:00 136 39 79/49 (59) 99 02/23/20 11:45 157 44 169/57 (94) 100 02/23/20 11:45 43 169/45 Mechanical Ventilator 40 02/23/20 11:30 157 43 88/51 (63) 99 02/23/20 11:30 44 166/150 Mechanical Ventilator 40 02/23/20 11:30 101.0 02/23/20 11:15 164 43 160/56 (90) 100 02/23/20 11:15 43 116/150 Mechanical Ventilator 40 Height (Feet): 5 Height (Inches): 4.00 Weight (Pounds): 154 HEENT: other - orally intubated Respiratory/Chest: other - on Ventilator, FIO2=40% Abdomen: soft, non tender, other - GT feeding Extremities: other - dependent edema Neurologic/Psychiatric: unresponsiveness Laboratory Tests Test 02/24/20 04:00 White Blood Count 32.8 K/UL (4.8-10.8) *H Red Blood Count 2.60 M/UL (4.20-5.40) L Hemoglobin 8.1 G/DL (12.0-16.0) L Hematocrit 22.9 % (37.0-47.0) L Mean Corpuscular Volume 88 FL (80-99) Mean Corpuscular Hemoglobin 30.9 PG (27.0-31.0) Mean Corpuscular Hemoglobin Concent 35.3 G/DL (32.0-36.0) Red Cell Distribution Width 11.2 % (11.6-14.8) L Platelet Count 37 K/UL (150-450) L Mean Platelet Volume 10.9 FL (6.5-10.1) H Neutrophils (%) (Auto) % (45.0-75.0) Lymphocytes (%) (Auto) % (20.0-45.0) Monocytes (%) (Auto) % (1.0-10.0) Eosinophils (%) (Auto) % (0.0-3.0) Basophils (%) (Auto) % (0.0-2.0) Differential Total Cells Counted 100 Neutrophils % (Manual) 72 % (45-75) Lymphocytes % (Manual) 17 % (20-45) L Monocytes % (Manual) 3 % (1-10) Eosinophils % (Manual) 1 % (0-3) Basophils % (Manual) 0 % (0-2) Myelocytes % 1 % (0-0) H Band Neutrophils 6 % (0-8) Platelet Estimate Decreased L Platelet Morphology Normal Hypochromasia 1+ Sodium Level 145 MMOL/L (136-145) Potassium Level 2.8 MMOL/L (3.5-5.1) L Chloride Level 111 MMOL/L (98-107) H Carbon Dioxide Level 22 MMOL/L (21-32) Anion Gap 12 mmol/L (5-15) Blood Urea Nitrogen 11 mg/dL (7-18) Creatinine 1.0 MG/DL (0.55-1.30) Estimat Glomerular Filtration Rate 58.7 mL/min (>60) Glucose Level 96 MG/DL (74-106) Uric Acid 3.0 MG/DL (2.6-7.2) Calcium Level 7.4 MG/DL (8.5-10.1) L Phosphorus Level 1.5 MG/DL (2.5-4.9) L Magnesium Level 2.4 MG/DL (1.8-2.4) Total Bilirubin 1.9 MG/DL (0.2-1.0) H Direct Bilirubin 1.5 MG/DL (0.0-0.3) H Gamma Glutamyl Transpeptidase 623 U/L (5-85) H Aspartate Amino Transf (AST/SGOT) 40 U/L (15-37) H Alanine Aminotransferase (ALT/SGPT) 72 U/L (12-78) Alkaline Phosphatase 246 U/L (46-116) H C-Reactive Protein, Quantitative 47.3 mg/dL (0.00-0.90) H Pro-B-Type Natriuretic Peptide 07468 pg/mL (0-125) H Total Protein 5.2 G/DL (6.4-8.2) L Albumin 2.0 G/DL (3.4-5.0) L Globulin 3.2 g/dL Albumin/Globulin Ratio 0.6 (1.0-2.7) L Vancomycin Level Trough 17.4 ug/mL (5.0-12.0) H Current Medications Medications (Trade) Dose Ordered Sig/Bere Route PRN Reason Start Time Stop Time Status Last Admin Dose Admin Acetaminophen (Tylenol) 650 mg Q4H PRN GT Temp >100.5 02/19/20 22:00 03/20/20 21:59 02/23/20 11:00 Chlorhexidine Gluconate (Jane-Hex 2%) 1 applic DAILY@2000 TOPIC 02/20/20 20:00 05/20/20 19:59 02/23/20 19:56 Dopamine HCl/ Dextrose 250 ml @ 0 mls/hr Q24H IV 02/19/20 21:00 05/19/20 20:59 02/21/20 03:10 Levetiracetam 100 ml @ 400 mls/hr Q12HR IVPB 02/20/20 09:00 05/20/20 08:59 02/24/20 09:05 Lorazepam (Ativan 2mg/ml 1ml) 2 mg Q6H PRN IV For Seizures 02/19/20 22:00 02/26/20 21:59 Meropenem 1 gm/ Sodium Chloride 55 ml @ 110 mls/hr Q8HR IVPB 02/19/20 22:00 02/28/20 21:59 02/24/20 05:39 Metoclopramide HCl (Reglan) 10 mg Q8HR IVP 02/24/20 10:23 03/25/20 10:22 02/24/20 10:34 Morphine Sulfate (Morphine Sulfate) 2 mg Q4H PRN IVP For Pain 02/23/20 12:15 03/01/20 12:14 Norepinephrine Bitartrate 16 mg/ Dextrose 566 ml @ 0 mls/hr Q24H IV 02/22/20 23:00 03/23/20 22:59 02/24/20 00:12 Pantoprazole (Protonix) 40 mg Q12HR IVP 02/24/20 21:00 03/21/20 08:59 Phenytoin 100 mg/ Sodium Chloride 57 ml @ 114 mls/hr Q12HR IVPB 02/24/20 21:00 03/21/20 00:00 Potassium Chloride 100 meq/ Dextrose 1,050 ml @ 100 mls/hr [id number] IV 02/24/20 09:00 02/24/20 19:29 02/24/20 09:25 Potassium Phosphate 20 mm/ Sodium Chloride 281.6667 ml @ 46.944 m... ONCE ONCE IV 02/24/20 08:00 02/24/20 13:59 02/24/20 09:05 Vancomycin HCl (Vanco rx to dose) 1 ea DAILY PRN MISC Per rx protocol 02/19/20 21:15 03/20/20 21:14 Vancomycin HCl 1 gm/Sodium Chloride 275 ml @ 183.708 mls/hr Q8H IVPB 02/21/20 14:00 02/26/20 13:59 02/24/20 05:40 Prabhakar Guaman MD February 24, 2020 11:11
--- NOTE | 2020-02-24 16:41 | Cardiac Electrophysiology PN ---
Assessment/Plan Assessment/Plan 1. Respiratory failure. Orally intubated on the vent. Fio2 40% and PEEP 5. Fu by Dr. Haile. Terminal extubation vs new trach per sister in am 2. Paroxysmal atrial fibrillation, off anticoagulation in view of bleeding from the trach site. Converted to SR 3. Left Pneumothorax, status post Left chest tube placement on broad-spectrum IV antibiotic. Drained minimally last night. 4. Hypotension, on Levophed 12 mcg and IV antibiotic. 5. Dysphagia, status post PEG placement. Draining by gravity for high residual. 6. Dementia. 7. Hypernatremia on IV fluids. 8. Status post left pneumothorax with chest tube in place. 9. S/P tracheostomy bleeding 10. Chronic encephalopathy. DW RN Subjective Subjective In ICU on the vent . Trach is covered On Levo 12 Mcg. Sister to make decision re terminal extubation vs tracheostomy Objective Last 24 Hour Vital Signs Date Time Temp Pulse Resp B/P (MAP) Pulse Ox O2 Delivery O2 Flow Rate FiO2 02/24/20 16:34 102 02/24/20 16:00 90 02/24/20 16:00 Mechanical Ventilator Mechanical Ventilator 02/24/20 16:00 40 02/24/20 16:00 99.7 91 25 124/77 (93) 100 02/24/20 15:00 88 23 110/70 (83) 100 02/24/20 14:42 85 20 40 02/24/20 14:30 84 22 109/71 (84) 100 02/24/20 14:00 99.4 95 33 112/72 (85) 99 02/24/20 13:00 89 24 105/66 (79) 100 02/24/20 12:30 88 25 104/71 (82) 100 02/24/20 12:00 Mechanical Ventilator Mechanical Ventilator 02/24/20 12:00 40 02/24/20 12:00 99.4 114 22 113/67 (82) 100 02/24/20 11:30 84 20 94/60 (71) 100 02/24/20 11:05 88 20 40 02/24/20 11:00 89 23 104/67 (79) 100 02/24/20 10:30 95 26 108/70 (83) 100 02/24/20 10:00 85 21 98/64 (75) 100 02/24/20 09:30 85 21 103/65 (78) 100 02/24/20 09:15 94/57 02/24/20 09:00 100/62 02/24/20 09:00 85 22 100/62 (75) 100 02/24/20 08:45 95/62 02/24/20 08:30 87 23 94/65 (75) 100 02/24/20 08:30 94/65 02/24/20 08:15 98/64 02/24/20 08:00 99.0 86 21 91/60 (70) 100 02/24/20 08:00 40 02/24/20 08:00 91/60 02/24/20 08:00 Mechanical Ventilator Mechanical Ventilator 02/24/20 08:00 85 02/24/20 07:40 89 20 40 02/24/20 07:30 90 21 102/63 (76) 100 02/24/20 07:00 101/66 02/24/20 07:00 91 20 101/66 (78) 100 02/24/20 06:30 90 21 02/24/20 06:00 92 21 105/74 (84) 100 02/24/20 06:00 96/62 02/24/20 05:30 94 23 95/62 (73) 100 02/24/20 05:00 95 22 106/64 (78) 100 02/24/20 05:00 106/70 02/24/20 04:30 97 23 111/70 (84) 100 02/24/20 04:00 40 02/24/20 04:00 111/68 02/24/20 04:00 Mechanical Ventilator Mechanical Ventilator 02/24/20 04:00 99.0 100 25 111/69 (83) 100 02/24/20 04:00 102 02/24/20 03:30 100 25 105/65 (78) 100 02/24/20 03:06 102 24 40 02/24/20 03:00 104/64 02/24/20 03:00 106 27 101/64 (76) 100 02/24/20 02:30 102 25 103/70 (81) 100 02/24/20 02:00 92 22 99/66 (77) 100 02/24/20 02:00 101/65 02/24/20 01:30 96 26 101/70 (80) 100 02/24/20 01:00 93/61 5/21/20 01:00 97 25 97/62 (74) 100 20 00:30 96 23 104/65 (78) 100 20 00:12 96/64 5 00:00 98.7 96 23 96/64 (75) 100 20 00:00 98/62 5 00:00 Mechanical Ventilator Mechanical Ventilator 02/23/20 23:30 97 25 100/68 (79) 100 20 23:00 106/71 02/23/20 23:00 87 20 108/70 (83) 100 02/23/20 22:51 91 23 40 20 22:30 85 24 113/71 (85) 100 02/23/20 22:00 107/71 02/23/20 22:00 90 24 105/67 (80) 100 02/23/20 21:30 92 22 107/73 (84) 100 20 21:00 111 33 116/74 (88) 100 20 21:00 111/72 02/23/20 21:00 116/74 20 20:30 113 35 112/78 (89) 64 02/23/20 20:15 115 37 127/67 (87) 55 20 20:00 40 20 20:00 91 20 20:00 Mechanical Ventilator Mechanical Ventilator 02/23/20 20:00 127/67 20 20:00 98.0 111 32 132/85 (101) 100 20 19:30 90 24 114/72 (86) 100 20 19:11 101 27 40 520/20 19:00 97.9 114 32 112/80 (91) 100 20/20 18:30 113 35 125/80 (95) 99 20/20 18:00 123/81 520/20 18:00 113 36 122/75 (91) 100 2020 17:30 102 25 110/74 (86) 100 2020 17:00 95/66 520/20 17:00 106 22 85/63 (70) 100 Intake and Output 20 520 19:00 07:00 Intake Total 3311.8489 ml 1839.37 ml Output Total 1095 ml 1326 ml Balance 2216.8489 ml 513.37 ml IV Total 3211.8489 ml 1839.37 ml Other 100 ml Output Urine Total 1015 ml 1160 ml Gastric Drainage Total 80 ml 160 ml Chest Tube Drainage Total 6 ml # Bowel Movements 3 3 Laboratory Tests Test 02/24/20 04:00 White Blood Count 32.8 K/UL (4.8-10.8) *H Red Blood Count 2.60 M/UL (4.20-5.40) L Hemoglobin 8.1 G/DL (12.0-16.0) L Hematocrit 22.9 % (37.0-47.0) L Mean Corpuscular Volume 88 FL (80-99) Mean Corpuscular Hemoglobin 30.9 PG (27.0-31.0) Mean Corpuscular Hemoglobin Concent 35.3 G/DL (32.0-36.0) Red Cell Distribution Width 11.2 % (11.6-14.8) L Platelet Count 37 K/UL (150-450) L Mean Platelet Volume 10.9 FL (6.5-10.1) H Neutrophils (%) (Auto) % (45.0-75.0) Lymphocytes (%) (Auto) % (20.0-45.0) Monocytes (%) (Auto) % (1.0-10.0) Eosinophils (%) (Auto) % (0.0-3.0) Basophils (%) (Auto) % (0.0-2.0) Differential Total Cells Counted 100 Neutrophils % (Manual) 72 % (45-75) Lymphocytes % (Manual) 17 % (20-45) L Monocytes % (Manual) 3 % (1-10) Eosinophils % (Manual) 1 % (0-3) Basophils % (Manual) 0 % (0-2) Myelocytes % 1 % (0-0) H Band Neutrophils 6 % (0-8) Platelet Estimate Decreased L Platelet Morphology Normal Hypochromasia 1+ Sodium Level 145 MMOL/L (136-145) Potassium Level 2.8 MMOL/L (3.5-5.1) L Chloride Level 111 MMOL/L (98-107) H Carbon Dioxide Level 22 MMOL/L (21-32) Anion Gap 12 mmol/L (5-15) Blood Urea Nitrogen 11 mg/dL (7-18) Creatinine 1.0 MG/DL (0.55-1.30) Estimat Glomerular Filtration Rate 58.7 mL/min (>60) Glucose Level 96 MG/DL (74-106) Uric Acid 3.0 MG/DL (2.6-7.2) Calcium Level 7.4 MG/DL (8.5-10.1) L Phosphorus Level 1.5 MG/DL (2.5-4.9) L Magnesium Level 2.4 MG/DL (1.8-2.4) Total Bilirubin 1.9 MG/DL (0.2-1.0) H Direct Bilirubin 1.5 MG/DL (0.0-0.3) H Gamma Glutamyl Transpeptidase 623 U/L (5-85) H Aspartate Amino Transf (AST/SGOT) 40 U/L (15-37) H Alanine Aminotransferase (ALT/SGPT) 72 U/L (12-78) Alkaline Phosphatase 246 U/L (46-116) H C-Reactive Protein, Quantitative 47.3 mg/dL (0.00-0.90) H Pro-B-Type Natriuretic Peptide 49130 pg/mL (0-125) H Total Protein 5.2 G/DL (6.4-8.2) L Albumin 2.0 G/DL (3.4-5.0) L Globulin 3.2 g/dL Albumin/Globulin Ratio 0.6 (1.0-2.7) L Vancomycin Level Trough 17.4 ug/mL (5.0-12.0) H Objective HEAD AND NECK: Orally intubated and tracheostomy is covered. LUNGS: Coarse rhonchi. CARDIOVASCULAR: Regular S1 and S2 with no gallop. She has a chest tube. ABDOMEN: Soft. EXTREMITIES: 1+ pitting edema.Contracted Dat Oh MD February 24, 2020 16:41
--- NOTE | 2020-02-24 16:42 | Surgery Progress Note ---
Surgery Progress Note Subjective Additional Comments Ill-appearing pending family decision Objective Last 24 Hour Vital Signs Date Time Temp Pulse Resp B/P (MAP) Pulse Ox O2 Delivery O2 Flow Rate FiO2 02/24/20 16:34 102 02/24/20 16:00 90 02/24/20 16:00 Mechanical Ventilator Mechanical Ventilator 02/24/20 16:00 40 02/24/20 16:00 99.7 91 25 124/77 (93) 100 02/24/20 15:00 88 23 110/70 (83) 100 02/24/20 14:42 85 20 40 02/24/20 14:30 84 22 109/71 (84) 100 02/24/20 14:00 99.4 95 33 112/72 (85) 99 02/24/20 13:00 89 24 105/66 (79) 100 02/24/20 12:30 88 25 104/71 (82) 100 02/24/20 12:00 Mechanical Ventilator Mechanical Ventilator 02/24/20 12:00 40 02/24/20 12:00 99.4 114 22 113/67 (82) 100 02/24/20 11:30 84 20 94/60 (71) 100 02/24/20 11:05 88 20 40 02/24/20 11:00 89 23 104/67 (79) 100 02/24/20 10:30 95 26 108/70 (83) 100 02/24/20 10:00 85 21 98/64 (75) 100 02/24/20 09:30 85 21 103/65 (78) 100 02/24/20 09:15 94/57 02/24/20 09:00 100/62 02/24/20 09:00 85 22 100/62 (75) 100 02/24/20 08:45 95/62 02/24/20 08:30 87 23 94/65 (75) 100 02/24/20 08:30 94/65 02/24/20 08:15 98/64 02/24/20 08:00 99.0 86 21 91/60 (70) 100 02/24/20 08:00 40 02/24/20 08:00 91/60 02/24/20 08:00 Mechanical Ventilator Mechanical Ventilator 02/24/20 08:00 85 02/24/20 07:40 89 20 40 02/24/20 07:30 90 21 102/63 (76) 100 02/24/20 07:00 101/66 02/24/20 07:00 91 20 101/66 (78) 100 02/24/20 06:30 90 21 02/24/20 06:00 92 21 105/74 (84) 100 02/24/20 06:00 96/62 02/24/20 05:30 94 23 95/62 (73) 100 02/24/20 05:00 95 22 106/64 (78) 100 02/24/20 05:00 106/70 02/24/20 04:30 97 23 111/70 (84) 100 02/24/20 04:00 40 02/24/20 04:00 111/68 02/24/20 04:00 Mechanical Ventilator Mechanical Ventilator 02/24/20 04:00 99.0 100 25 111/69 (83) 100 02/24/20 04:00 102 02/24/20 03:30 100 25 105/65 (78) 100 02/24/20 03:06 102 24 40 02/24/20 03:00 104/64 02/24/20 03:00 106 27 101/64 (76) 100 02/24/20 02:30 102 25 103/70 (81) 100 02/24/20 02:00 92 22 99/66 (77) 100 02/24/20 02:00 101/65 02/24/20 01:30 96 26 101/70 (80) 100 02/24/20 01:00 93/61 02/24/20 01:00 97 25 97/62 (74) 100 02/24/20 00:30 96 23 104/65 (78) 100 02/24/20 00:12 96/64 02/24/20 00:00 98.7 96 23 96/64 (75) 100 02/24/20 00:00 98/62 02/24/20 00:00 Mechanical Ventilator Mechanical Ventilator 02/23/20 23:30 97 25 100/68 (79) 100 02/23/20 23:00 106/71 02/23/20 23:00 87 20 108/70 (83) 100 02/23/20 22:51 91 23 40 02/23/20 22:30 85 24 113/71 (85) 100 02/23/20 22:00 107/71 02/23/20 22:00 90 24 105/67 (80) 100 02/23/20 21:30 92 22 107/73 (84) 100 02/23/20 21:00 111 33 116/74 (88) 100 02/23/20 21:00 111/72 02/23/20 21:00 116/74 02/23/20 20:30 113 35 112/78 (89) 64 02/23/20 20:15 115 37 127/67 (87) 55 02/23/20 20:00 40 02/23/20 20:00 91 02/23/20 20:00 Mechanical Ventilator Mechanical Ventilator 02/23/20 20:00 127/67 02/23/20 20:00 98.0 111 32 132/85 (101) 100 02/23/20 19:30 90 24 114/72 (86) 100 02/23/20 19:11 101 27 40 02/23/20 19:00 97.9 114 32 112/80 (91) 100 02/23/20 18:30 113 35 125/80 (95) 99 02/23/20 18:00 123/81 02/23/20 18:00 113 36 122/75 (91) 100 02/23/20 17:30 102 25 110/74 (86) 100 02/23/20 17:00 95/66 02/23/20 17:00 106 22 85/63 (70) 100 I&O Intake and Output 02/23/20 02/24/20 19:00 07:00 Intake Total 3311.8489 ml 1839.37 ml Output Total 1095 ml 1326 ml Balance 2216.8489 ml 513.37 ml IV Total 3211.8489 ml 1839.37 ml Other 100 ml Output Urine Total 1015 ml 1160 ml Gastric Drainage Total 80 ml 160 ml Chest Tube Drainage Total 6 ml # Bowel Movements 3 3 Dressing: other Wound: other Drains: other Cardiovascular: RSR Respiratory: decreased breath sounds Abdomen: soft, non-tender, present bowel sounds Extremities: no cyanosis Laboratory Tests Test 02/24/20 04:00 White Blood Count 32.8 K/UL (4.8-10.8) *H Red Blood Count 2.60 M/UL (4.20-5.40) L Hemoglobin 8.1 G/DL (12.0-16.0) L Hematocrit 22.9 % (37.0-47.0) L Mean Corpuscular Volume 88 FL (80-99) Mean Corpuscular Hemoglobin 30.9 PG (27.0-31.0) Mean Corpuscular Hemoglobin Concent 35.3 G/DL (32.0-36.0) Red Cell Distribution Width 11.2 % (11.6-14.8) L Platelet Count 37 K/UL (150-450) L Mean Platelet Volume 10.9 FL (6.5-10.1) H Neutrophils (%) (Auto) % (45.0-75.0) Lymphocytes (%) (Auto) % (20.0-45.0) Monocytes (%) (Auto) % (1.0-10.0) Eosinophils (%) (Auto) % (0.0-3.0) Basophils (%) (Auto) % (0.0-2.0) Differential Total Cells Counted 100 Neutrophils % (Manual) 72 % (45-75) Lymphocytes % (Manual) 17 % (20-45) L Monocytes % (Manual) 3 % (1-10) Eosinophils % (Manual) 1 % (0-3) Basophils % (Manual) 0 % (0-2) Myelocytes % 1 % (0-0) H Band Neutrophils 6 % (0-8) Platelet Estimate Decreased L Platelet Morphology Normal Hypochromasia 1+ Sodium Level 145 MMOL/L (136-145) Potassium Level 2.8 MMOL/L (3.5-5.1) L Chloride Level 111 MMOL/L (98-107) H Carbon Dioxide Level 22 MMOL/L (21-32) Anion Gap 12 mmol/L (5-15) Blood Urea Nitrogen 11 mg/dL (7-18) Creatinine 1.0 MG/DL (0.55-1.30) Estimat Glomerular Filtration Rate 58.7 mL/min (>60) Glucose Level 96 MG/DL (74-106) Uric Acid 3.0 MG/DL (2.6-7.2) Calcium Level 7.4 MG/DL (8.5-10.1) L Phosphorus Level 1.5 MG/DL (2.5-4.9) L Magnesium Level 2.4 MG/DL (1.8-2.4) Total Bilirubin 1.9 MG/DL (0.2-1.0) H Direct Bilirubin 1.5 MG/DL (0.0-0.3) H Gamma Glutamyl Transpeptidase 623 U/L (5-85) H Aspartate Amino Transf (AST/SGOT) 40 U/L (15-37) H Alanine Aminotransferase (ALT/SGPT) 72 U/L (12-78) Alkaline Phosphatase 246 U/L (46-116) H C-Reactive Protein, Quantitative 47.3 mg/dL (0.00-0.90) H Pro-B-Type Natriuretic Peptide 55242 pg/mL (0-125) H Total Protein 5.2 G/DL (6.4-8.2) L Albumin 2.0 G/DL (3.4-5.0) L Globulin 3.2 g/dL Albumin/Globulin Ratio 0.6 (1.0-2.7) L Vancomycin Level Trough 17.4 ug/mL (5.0-12.0) H Plan Problems: (1) Pneumothorax Assessment & Plan: cont chest tube to suction am cxr will monitor 1. Left-sided pneumothorax, approximately 50% by volume. 2. Extensive subcutaneous emphysema throughout the chest wall and neck soft tissues bilaterally. s/p chest tube Lungs: Persistent mild increased interstitial markings. The lungs are otherwise clear without focal consolidation. Pleural space: Interval significant improvement of the left-sided pneumothorax, no longer well seen. Heart: Unremarkable. No cardiomegaly. Mediastinum: Unremarkable. Bones/joints: Unremarkable. Soft tissues: Persistent but improved subcutaneous emphysema in the chest reed and neck soft tissues bilaterally. Tubes, lines and devices: Left-sided chest tube in place, with expected positioning. Endotracheal tube tip 3.2 cm above the emerita. Telemetry leads overlie the thorax. IMPRESSION: 1. Left-sided chest tube in place, with expected positioning. 2. Interval significant improvement of the left-sided pneumothorax, which is no longer well seen. 3. Persistent mild increased interstitial markings. This is nonspecific but may suggest mild interstitial edema or a mild pneumonitis. No focal consolidation. 4. Improved subcutaneous emphysema in the chest reed and neck soft tissues bilaterally. (2) Respiratory arrest Assessment & Plan: TRACH REMOVED, SITE BLEEDING. LT CHEST TUNE TO SUCTION. FEMORAL ACCESS will plan for trach new when stable (3) Respiratory distress (4) Tracheostomy complication Assessment & Plan: trach complication intubated on support will need to revise trach once stable thank you Hold on trach revision his family is considering terminal extubation At withdrawal of care Ant Lee February 24, 2020 16:42
[2020-02-24] MEDS: Dyna-Hex 2% Top Sol 2oz TOPIC SCH (20:00)
[2020-02-24] MEDS: DOPamine 400mg/250ml 250 ML IV SCH (21:00)
[2020-02-24] MEDS: Phenytoin 100 MG in NS 55 ML IVPB SCH (21:07)
--- NOTE | 2020-02-24 23:30 | Progress Note ---
DATE: 02/24/2020 SUBJECTIVE: This is a 49-year-old female, currently in bed, nonverbal, lethargic, on Levophed drip. Poor prognosis, on ventilator. PHYSICAL EXAMINATION: Blood pressure 110/70, pulse 88, respirations 23, temperature 99.4. HEENT: Eyes are closed. NECK: Supple. CHEST: Bilaterally decreased breath sounds. CARDIOVASCULAR: Regular rhythm. ABDOMEN: Soft. G-tube in place. EXTREMITIES: CCE. LABORATORY DATA: White count went up to 32,000, hemoglobin 8.1. Chemistry, potassium 2.8. BNP was . ASSESSMENT: 1. Hypokalemia. 2. CHF. 3. Cardiopulmonary arrest. 4. Acute respiratory failure. PLAN: 1. We add Lasix. 2. Discontinue IV fluid. 3. Continue current treatment. 4. Currently, the patient is Full Code. 5. Continue Dilantin. Darin Delgado M.D. DR: JUDIE JOB#: [id number] CC:
[2020-02-25] VITALS (39 sets, daily range): BP systolic 1–117; BP diastolic 60–77
[2020-02-25 05:35] LABS: HEMATOCRIT 26.2 % (37.0-47.0); HEMOGLOBIN 9.2 G/DL (12.0-16.0); MEAN CORPUSCULAR VOLUME 89 FL (80-99); PLATELET COUNT 35 K/UL (150-450); RED BLOOD COUNT 2.95 M/UL (4.20-5.40); RED CELL DISTRIBUTION WIDTH 11.7 % (11.6-14.8); WHITE BLOOD COUNT 17.4 K/UL (4.8-10.8)
[2020-02-25 06:03] LABS: ALANINE AMINOTRANSFERASE 65 U/L (12-78); ALBUMIN 1.8 G/DL (3.4-5.0); ALBUMIN/GLOBULIN RATIO 0.5 (1.0-2.7); ALKALINE PHOSPHATASE 263 U/L (46-116); ANION GAP 10 mmol/L (5-15); ASPARTATE AMINO TRANSFERASE 56 U/L (15-37); BILIRUBIN,TOTAL 1.3 MG/DL (0.2-1.0); BLOOD UREA NITROGEN 10 mg/dL (7-18); CALCIUM 8.2 MG/DL (8.5-10.1); CARBON DIOXIDE 23 MMOL/L (21-32); CHLORIDE 113 MMOL/L (98-107); CREATININE 0.9 MG/DL (0.55-1.30); PHOSPHORUS 2.3 MG/DL (2.5-4.9); POTASSIUM 3.8 MMOL/L (3.5-5.1); SODIUM 146 MMOL/L (136-145)
[2020-02-25] MEDS: Metoclopramide 10mg/2ml Inj IVP SCH ×3 (06:11→22:17)
[2020-02-25] MEDS: Meropenem 1gm in NS 55ml IVPB SCH ×3 (06:11→22:18)
[2020-02-25 06:40] LABS: BILIRUBIN,DIRECT 0.6 MG/DL (0.0-0.3)
[2020-02-25] MEDS: Vancomycin 1 GM in NS 275 ML IVPB SCH (07:16)
[2020-02-25] MEDS: levETIRAcetam 500mg/NS100ml 100 ML IVPB SCH ×2 (08:36→20:43)
[2020-02-25] MEDS: Pantoprazole Inj IVP SCH ×2 (08:36→20:43)
[2020-02-25] MEDS: Phenytoin 100 MG in NS 55 ML IVPB SCH ×2 (08:36→20:43)
[2020-02-25] MEDS ORDERED: Potassium Phosphate 20 MM in NS 275 ML IV ONE (10:00)
--- NOTE | 2020-02-25 10:09 | Cardiac Electrophysiology PN ---
Assessment/Plan Assessment/Plan 1. Respiratory failure. Orally intubated on the vent. Fio2 40% and PEEP 5. Fu by Dr. Haile. Terminal extubation vs new trach per sister today 2. Paroxysmal atrial fibrillation, off anticoagulation in view of bleeding from the trach site. Converted to SR 3. Left Pneumothorax, status post Left chest tube placement on broad-spectrum IV antibiotic. No out put last night. 4. Septic Shock , now off Levophed 5. Dysphagia, status post PEG placement. Draining by gravity for high residual. 6. Dementia. 7. Hypernatremia on IV fluids. 8. Status post left pneumothorax with chest tube in place. 9. S/P tracheostomy bleeding 10. Chronic encephalopathy. DW RN Subjective Subjective In ICU on the vent . Trach is covered Off Levo since last night. Sister to make decision re terminal extubation vs Re-tracheostomy today Objective Last 24 Hour Vital Signs Date Time Temp Pulse Resp B/P (MAP) Pulse Ox O2 Delivery O2 Flow Rate FiO2 02/25/20 09:13 100 02/25/20 09:00 100 22 100/70 (80) 100 02/25/20 08:30 99 24 108/67 (81) 100 02/25/20 08:00 40 02/25/20 08:00 92 21 102/69 (80) 100 02/25/20 08:00 Mechanical Ventilator Mechanical Ventilator 02/25/20 07:30 99.7 95 22 98/66 (77) 100 02/25/20 07:10 96 20 40 02/25/20 07:00 103 21 103/67 (79) 100 02/25/20 06:30 103 21 02/25/20 06:00 97 21 110/67 (81) 100 02/25/20 05:30 107 21 108/67 (81) 100 02/25/20 05:00 97 7 96/66 (76) 100 02/25/20 04:30 107 24 105/68 (80) 100 02/25/20 04:00 99.5 101 30 107/74 (85) 100 02/25/20 04:00 40 02/25/20 04:00 99 02/25/20 04:00 Mechanical Ventilator Mechanical Ventilator 02/25/20 03:50 99 21 40 02/25/20 03:30 105 30 117/77 (90) 100 02/25/20 03:00 114 30 113/76 (88) 100 02/25/20 02:30 119 28 114/70 (85) 93 02/25/20 02:00 103 22 108/72 (84) 100 02/25/20 02:00 134/70 02/25/20 01:30 103 23 109/68 (82) 100 02/25/20 01:00 103 22 107/70 (82) 100 02/25/20 01:00 111/71 02/25/20 00:30 104 21 97/61 (73) 98 02/25/20 00:00 99.7 108 22 100/65 (77) 100 02/25/20 00:00 100/65 02/25/20 00:00 Mechanical Ventilator Mechanical Ventilator 02/24/20 23:30 111 27 108/72 (84) 100 02/24/20 23:08 101 23 40 02/24/20 23:00 102 25 111/74 (86) 100 02/24/20 23:00 115/81 02/24/20 22:30 110 30 110/73 (85) 100 02/24/20 22:00 106 22 105/73 (84) 100 02/24/20 22:00 105/73 02/24/20 21:30 101 24 115/81 (92) 100 02/24/20 21:00 98 24 122/81 (95) 100 02/24/20 21:00 118/83 02/24/20 21:00 110/45 02/24/20 20:30 102 25 120/78 (92) 100 02/24/20 20:00 40 02/24/20 20:00 99.8 102 26 119/80 (93) 100 02/24/20 20:00 Mechanical Ventilator Mechanical Ventilator 02/24/20 20:00 118/80 02/24/20 20:00 100 02/24/20 19:46 99 27 40 02/24/20 19:30 108 31 123/83 (96) 69 02/24/20 19:00 113 29 141/95 (110) 64 02/24/20 18:00 127/85 02/24/20 18:00 103 32 127/85 (99) 02/24/20 17:30 101 25 136/113 (121) 69 02/24/20 17:00 96 31 119/83 (95) 02/24/20 16:34 102 02/24/20 16:00 90 02/24/20 16:00 Mechanical Ventilator Mechanical Ventilator 02/24/20 16:00 40 02/24/20 16:00 99.7 91 25 124/77 (93) 100 02/24/20 16:00 119/83 02/24/20 15:00 110/70 02/24/20 15:00 88 23 110/70 (83) 100 02/24/20 14:42 85 20 40 02/24/20 14:30 84 22 109/71 (84) 100 02/24/20 14:00 112/72 02/24/20 14:00 99.4 95 33 112/72 (85) 99 02/24/20 13:00 89 24 105/66 (79) 100 02/24/20 12:30 88 25 104/71 (82) 100 02/24/20 12:00 Mechanical Ventilator Mechanical Ventilator 02/24/20 12:00 40 02/24/20 12:00 99.4 114 22 113/67 (82) 100 02/24/20 11:30 84 20 94/60 (71) 100 02/24/20 11:05 88 20 40 02/24/20 11:00 89 23 104/67 (79) 100 02/24/20 10:30 95 26 108/70 (83) 100 Intake and Output 02/24/20 02/25/20 19:00 07:00 Intake Total 509.740 ml 863.66 ml Output Total 1065 ml 1800 ml Balance -555.260 ml -936.34 ml IV Total 509.740 ml 863.66 ml Output Urine Total 1065 ml 1600 ml Stool Total 200 ml Chest Tube Drainage Total 0 ml Laboratory Tests Test 02/25/20 03:55 White Blood Count 17.4 K/UL (4.8-10.8) H Red Blood Count 2.95 M/UL (4.20-5.40) L Hemoglobin 9.2 G/DL (12.0-16.0) L Hematocrit 26.2 % (37.0-47.0) L Mean Corpuscular Volume 89 FL (80-99) Mean Corpuscular Hemoglobin 31.1 PG (27.0-31.0) H Mean Corpuscular Hemoglobin Concent 35.1 G/DL (32.0-36.0) Red Cell Distribution Width 11.7 % (11.6-14.8) Platelet Count 35 K/UL (150-450) L Mean Platelet Volume 11.4 FL (6.5-10.1) H Neutrophils (%) (Auto) % (45.0-75.0) Lymphocytes (%) (Auto) % (20.0-45.0) Monocytes (%) (Auto) % (1.0-10.0) Eosinophils (%) (Auto) % (0.0-3.0) Basophils (%) (Auto) % (0.0-2.0) Differential Total Cells Counted 100 Neutrophils % (Manual) 84 % (45-75) H Lymphocytes % (Manual) 10 % (20-45) L Monocytes % (Manual) 4 % (1-10) Eosinophils % (Manual) 2 % (0-3) Basophils % (Manual) 0 % (0-2) Band Neutrophils 0 % (0-8) Platelet Estimate Decreased L Platelet Morphology Normal Hypochromasia 2+ Anisocytosis 1+ Sodium Level 146 MMOL/L (136-145) H Potassium Level 3.8 MMOL/L (3.5-5.1) Chloride Level 113 MMOL/L (98-107) H Carbon Dioxide Level 23 MMOL/L (21-32) Anion Gap 10 mmol/L (5-15) Blood Urea Nitrogen 10 mg/dL (7-18) Creatinine 0.9 MG/DL (0.55-1.30) Estimat Glomerular Filtration Rate > 60 mL/min (>60) Glucose Level 106 MG/DL (74-106) Calcium Level 8.2 MG/DL (8.5-10.1) L Phosphorus Level 2.3 MG/DL (2.5-4.9) L Magnesium Level 1.9 MG/DL (1.8-2.4) Total Bilirubin 1.3 MG/DL (0.2-1.0) H Direct Bilirubin 0.6 MG/DL (0.0-0.3) H Aspartate Amino Transf (AST/SGOT) 56 U/L (15-37) H Alanine Aminotransferase (ALT/SGPT) 65 U/L (12-78) Alkaline Phosphatase 263 U/L (46-116) H C-Reactive Protein, Quantitative 24.8 mg/dL (0.00-0.90) H Pro-B-Type Natriuretic Peptide 9033 pg/mL (0-125) H Total Protein 5.1 G/DL (6.4-8.2) L Albumin 1.8 G/DL (3.4-5.0) L Globulin 3.3 g/dL Albumin/Globulin Ratio 0.5 (1.0-2.7) L Phenytoin (Dilantin) Level 4.4 ug/mL (10-20) L Microbiology Date/Time Source Procedure Growth Status 02/24/20 13:00 Sputum Gram Stain - Final Resulted 02/24/20 13:00 Sputum Sputum Culture Pending Resulted 02/23/20 15:00 Sputum Induced Gram Stain - Final Resulted 02/23/20 15:00 Sputum Culture - Preliminary Gram Negative Bacillus 1 Resulted Objective HEAD AND NECK: Orally intubated and tracheostomy is covered. LUNGS: Coarse rhonchi. CARDIOVASCULAR: Regular S1 and S2 with no gallop. She has a chest tube. ABDOMEN: Soft. EXTREMITIES: 1+ pitting edema.Contracted Dat Oh MD February 25, 2020 10:09
--- NOTE | 2020-02-25 10:39 | Nephrology Progress Note ---
Assessment/Plan Problem List: (1) Electrolyte imbalance (2) Elevated liver enzymes (3) Respiratory failure (4) Hypoalbuminemia (5) Proteinuria (6) Leukocytosis Assessment HypoKalemia Proteinuria, hypoalbuminemia, BUN and creatinine within normal range Chronic respiratory failure Status post left pneumothorax with chest tube in place Transaminitis Leukocytosis Sepsis, bacteremia with gram-positive cocci Anoxic encephalopathy Seizure disorder Penicillin allergy Hypertension Plan February 24: Today's lab results noted. Serum potassium now within acceptable range GT tube is now clamped will start GT feeding. Continue IV Reglan. DC IV fluid and IV Lasix. Monitor electrolytes and renal parameters. Midodrine through GT tube for blood pressure below 100 systolic Discussed with RN February 23: We will clamp the GT and disconnected from suction Increase Protonix to every 12 hours IV IV Reglan 100 mEq of KCl intravenously Continue to monitor electrolytes Discussed with RN February 22: Low potassium is replaced intravenously and via GT Stool for C. difficile sent Will monitor electrolytes Continue per consultants regarding normalizing LFTs and underlying sepsis February 21: Leukocytosis worsened, Blood pressure borderline low LFTs remain elevated Abnormal magnesium potassium and phosphorus on the can panel Supplements for potassium magnesium and phosphorus ordered and continue as needed Continue to check calcium and phosphorus and liver function tests Continue per ID and pulmonary Keep the blood pressure and blood sugar in check Per orders Subjective ROS Limited/Unobtainable: Yes Objective Objective Last 24 Hour Vital Signs Date Time Temp Pulse Resp B/P (MAP) Pulse Ox O2 Delivery O2 Flow Rate FiO2 02/25/20 09:13 100 02/25/20 09:00 100 22 100/70 (80) 100 02/25/20 08:30 99 24 108/67 (81) 100 02/25/20 08:00 40 02/25/20 08:00 87 02/25/20 08:00 92 21 102/69 (80) 100 02/25/20 08:00 Mechanical Ventilator Mechanical Ventilator 02/25/20 07:30 99.7 95 22 98/66 (77) 100 02/25/20 07:10 96 20 40 02/25/20 07:00 103 21 103/67 (79) 100 02/25/20 06:30 103 21 02/25/20 06:00 97 21 110/67 (81) 100 02/25/20 05:30 107 21 108/67 (81) 100 02/25/20 05:00 97 7 96/66 (76) 100 02/25/20 04:30 107 24 105/68 (80) 100 02/25/20 04:00 99.5 101 30 107/74 (85) 100 02/25/20 04:00 40 02/25/20 04:00 99 02/25/20 04:00 Mechanical Ventilator Mechanical Ventilator 02/25/20 03:50 99 21 40 02/25/20 03:30 105 30 117/77 (90) 100 02/25/20 03:00 114 30 113/76 (88) 100 02/25/20 02:30 119 28 114/70 (85) 93 02/25/20 02:00 103 22 108/72 (84) 100 02/25/20 02:00 134/70 02/25/20 01:30 103 23 109/68 (82) 100 02/25/20 01:00 103 22 107/70 (82) 100 02/25/20 01:00 111/71 02/25/20 00:30 104 21 97/61 (73) 98 02/25/20 00:00 99.7 108 22 100/65 (77) 100 02/25/20 00:00 100/65 02/25/20 00:00 Mechanical Ventilator Mechanical Ventilator 02/24/20 23:30 111 27 108/72 (84) 100 02/24/20 23:08 101 23 40 02/24/20 23:00 102 25 111/74 (86) 100 02/24/20 23:00 115/81 02/24/20 22:30 110 30 110/73 (85) 100 02/24/20 22:00 106 22 105/73 (84) 100 02/24/20 22:00 105/73 02/24/20 21:30 101 24 115/81 (92) 100 02/24/20 21:00 98 24 122/81 (95) 100 02/24/20 21:00 118/83 02/24/20 21:00 110/45 02/24/20 20:30 102 25 120/78 (92) 100 02/24/20 20:00 40 02/24/20 20:00 99.8 102 26 119/80 (93) 100 02/24/20 20:00 Mechanical Ventilator Mechanical Ventilator 02/24/20 20:00 118/80 02/24/20 20:00 100 02/24/20 19:46 99 27 40 02/24/20 19:30 108 31 123/83 (96) 69 02/24/20 19:00 113 29 141/95 (110) 64 02/24/20 18:00 127/85 02/24/20 18:00 103 32 127/85 (99) 02/24/20 17:30 101 25 136/113 (121) 69 02/24/20 17:00 96 31 119/83 (95) 02/24/20 16:34 102 02/24/20 16:00 90 02/24/20 16:00 Mechanical Ventilator Mechanical Ventilator 02/24/20 16:00 40 02/24/20 16:00 99.7 91 25 124/77 (93) 100 02/24/20 16:00 119/83 02/24/20 15:00 110/70 02/24/20 15:00 88 23 110/70 (83) 100 02/24/20 14:42 85 20 40 02/24/20 14:30 84 22 109/71 (84) 100 02/24/20 14:00 112/72 02/24/20 14:00 99.4 95 33 112/72 (85) 99 02/24/20 13:00 89 24 105/66 (79) 100 02/24/20 12:30 88 25 104/71 (82) 100 02/24/20 12:00 Mechanical Ventilator Mechanical Ventilator 02/24/20 12:00 40 02/24/20 12:00 99.4 114 22 113/67 (82) 100 02/24/20 11:30 84 20 94/60 (71) 100 02/24/20 11:05 88 20 40 02/24/20 11:00 89 23 104/67 (79) 100 Intake and Output 02/24/20 02/25/20 19:00 07:00 Intake Total 509.740 ml 863.66 ml Output Total 1065 ml 1800 ml Balance -555.260 ml -936.34 ml IV Total 509.740 ml 863.66 ml Output Urine Total 1065 ml 1600 ml Stool Total 200 ml Chest Tube Drainage Total 0 ml Laboratory Tests 02/25/20 03:55: White Blood Count 17.4H, Red Blood Count 2.95L, Hemoglobin 9.2L, Hematocrit 26.2L, Mean Corpuscular Volume 89, Mean Corpuscular Hemoglobin 31.1H, Mean Corpuscular Hemoglobin Concent 35.1, Red Cell Distribution Width 11.7, Platelet Count 35L, Mean Platelet Volume 11.4H, Neutrophils (%) (Auto) , Lymphocytes (%) (Auto) , Monocytes (%) (Auto) , Eosinophils (%) (Auto) , Basophils (%) (Auto) , Differential Total Cells Counted 100, Neutrophils % (Manual) 84H, Lymphocytes % (Manual) 10L, Monocytes % (Manual) 4, Eosinophils % (Manual) 2, Basophils % ( Manual) 0, Band Neutrophils 0, Platelet Estimate DecreasedL, Platelet Morphology Normal, Hypochromasia 2+, Anisocytosis 1+, Sodium Level 146H, Potassium Level 3.8, Chloride Level 113H, Carbon Dioxide Level 23, Anion Gap 10 , Blood Urea Nitrogen 10, Creatinine 0.9, Estimat Glomerular Filtration Rate > 60, Glucose Level 106, Calcium Level 8.2L, Phosphorus Level 2.3L, Magnesium Level 1.9, Total Bilirubin 1.3H, Direct Bilirubin 0.6H, Aspartate Amino Transf ( AST/SGOT) 56H, Alanine Aminotransferase (ALT/SGPT) 65, Alkaline Phosphatase 263H , C-Reactive Protein, Quantitative 24.8H, Pro-B-Type Natriuretic Peptide 9033H, Total Protein 5.1L, Albumin 1.8L, Globulin 3.3, Albumin/Globulin Ratio 0.5L, Phenytoin (Dilantin) Level 4.4L Height (Feet): 5 Height (Inches): 4.00 Weight (Pounds): 155 General Appearance: no apparent distress EENT: other - On ventilator Cardiovascular: tachycardia Respiratory/Chest: decreased breath sounds Abdomen: distended Objective No change Erich Link MD February 25, 2020 10:39
--- NOTE | 2020-02-25 11:17 | Infectious Diseases Prog Note ---
Assessment/Plan Assessment/Plan antibiotics : vancomycin iv, meropenem, flagyl A 1. gram negative pneumonia COVID 19 test negative on FiO2 40 percent, PEEP 5, 100 percent saturation 2. respiratory failure 3. shock improving 4. + blood cultures with coag neg staph likely contaminated 5. pneumothorax 6. hypertension 7. hydrocephalus 8, leucocytosis improving P 1. continue meropenem, flagyl 2. d.c iv vancomycin 3. will follow up culture Subjective ROS Limited/Unobtainable: Yes Allergies: Coded Allergies: PENICILLINS (Verified Allergy, Unknown, 02/14/18) Objective Vital Signs Last 24 Hour Vital Signs Date Time Temp Pulse Resp B/P (MAP) Pulse Ox O2 Delivery O2 Flow Rate FiO2 02/25/20 10:36 106 23 40 02/25/20 09:13 100 02/25/20 09:00 100 22 100/70 (80) 100 02/25/20 08:30 99 24 108/67 (81) 100 02/25/20 08:00 40 02/25/20 08:00 87 02/25/20 08:00 92 21 102/69 (80) 100 02/25/20 08:00 Mechanical Ventilator Mechanical Ventilator 02/25/20 07:30 99.7 95 22 98/66 (77) 100 02/25/20 07:10 96 20 40 02/25/20 07:00 103 21 103/67 (79) 100 02/25/20 06:30 103 21 02/25/20 06:00 97 21 110/67 (81) 100 02/25/20 05:30 107 21 108/67 (81) 100 02/25/20 05:00 97 7 96/66 (76) 100 02/25/20 04:30 107 24 105/68 (80) 100 02/25/20 04:00 99.5 101 30 107/74 (85) 100 02/25/20 04:00 40 02/25/20 04:00 99 02/25/20 04:00 Mechanical Ventilator Mechanical Ventilator 02/25/20 03:50 99 21 40 02/25/20 03:30 105 30 117/77 (90) 100 02/25/20 03:00 114 30 113/76 (88) 100 02/25/20 02:30 119 28 114/70 (85) 93 02/25/20 02:00 103 22 108/72 (84) 100 02/25/20 02:00 134/70 02/25/20 01:30 103 23 109/68 (82) 100 02/25/20 01:00 103 22 107/70 (82) 100 02/25/20 01:00 111/71 02/25/20 00:30 104 21 97/61 (73) 98 02/25/20 00:00 99.7 108 22 100/65 (77) 100 02/25/20 00:00 100/65 02/25/20 00:00 Mechanical Ventilator Mechanical Ventilator 02/24/20 23:30 111 27 108/72 (84) 100 02/24/20 23:08 101 23 40 02/24/20 23:00 102 25 111/74 (86) 100 02/24/20 23:00 115/81 02/24/20 22:30 110 30 110/73 (85) 100 02/24/20 22:00 106 22 105/73 (84) 100 02/24/20 22:00 105/73 02/24/20 21:30 101 24 115/81 (92) 100 02/24/20 21:00 98 24 122/81 (95) 100 02/24/20 21:00 118/83 02/24/20 21:00 110/45 02/24/20 20:30 102 25 120/78 (92) 100 02/24/20 20:00 40 02/24/20 20:00 99.8 102 26 119/80 (93) 100 02/24/20 20:00 Mechanical Ventilator Mechanical Ventilator 02/24/20 20:00 118/80 02/24/20 20:00 100 02/24/20 19:46 99 27 40 02/24/20 19:30 108 31 123/83 (96) 69 02/24/20 19:00 113 29 141/95 (110) 64 02/24/20 18:00 127/85 02/24/20 18:00 103 32 127/85 (99) 02/24/20 17:30 101 25 136/113 (121) 69 02/24/20 17:00 96 31 119/83 (95) 02/24/20 16:34 102 02/24/20 16:00 90 02/24/20 16:00 Mechanical Ventilator Mechanical Ventilator 5/21/20 16:00 40 02/24/20 16:00 99.7 91 25 124/77 (93) 100 02/24/20 16:00 119/83 02/24/20 15:00 110/70 02/24/20 15:00 88 23 110/70 (83) 100 02/24/20 14:42 85 20 40 02/24/20 14:30 84 22 109/71 (84) 100 02/24/20 14:00 112/72 02/24/20 14:00 99.4 95 33 112/72 (85) 99 02/24/20 13:00 89 24 105/66 (79) 100 02/24/20 12:30 88 25 104/71 (82) 100 02/24/20 12:00 Mechanical Ventilator Mechanical Ventilator 02/24/20 12:00 40 02/24/20 12:00 99.4 114 22 113/67 (82) 100 02/24/20 11:30 84 20 94/60 (71) 100 Height (Feet): 5 Height (Inches): 4.00 Weight (Pounds): 155 HEENT: other - intubated Microbiology Date/Time Source Procedure Growth Status 02/24/20 13:00 Sputum Gram Stain - Final Resulted 02/24/20 13:00 Sputum Sputum Culture Pending Resulted 02/23/20 15:00 Sputum Induced Gram Stain - Final Resulted 02/23/20 15:00 Sputum Culture - Preliminary Gram Negative Bacillus 1 Resulted Laboratory Tests Test 02/25/20 03:55 White Blood Count 17.4 K/UL (4.8-10.8) H Red Blood Count 2.95 M/UL (4.20-5.40) L Hemoglobin 9.2 G/DL (12.0-16.0) L Hematocrit 26.2 % (37.0-47.0) L Mean Corpuscular Volume 89 FL (80-99) Mean Corpuscular Hemoglobin 31.1 PG (27.0-31.0) H Mean Corpuscular Hemoglobin Concent 35.1 G/DL (32.0-36.0) Red Cell Distribution Width 11.7 % (11.6-14.8) Platelet Count 35 K/UL (150-450) L Mean Platelet Volume 11.4 FL (6.5-10.1) H Neutrophils (%) (Auto) % (45.0-75.0) Lymphocytes (%) (Auto) % (20.0-45.0) Monocytes (%) (Auto) % (1.0-10.0) Eosinophils (%) (Auto) % (0.0-3.0) Basophils (%) (Auto) % (0.0-2.0) Differential Total Cells Counted 100 Neutrophils % (Manual) 84 % (45-75) H Lymphocytes % (Manual) 10 % (20-45) L Monocytes % (Manual) 4 % (1-10) Eosinophils % (Manual) 2 % (0-3) Basophils % (Manual) 0 % (0-2) Band Neutrophils 0 % (0-8) Platelet Estimate Decreased L Platelet Morphology Normal Hypochromasia 2+ Anisocytosis 1+ Sodium Level 146 MMOL/L (136-145) H Potassium Level 3.8 MMOL/L (3.5-5.1) Chloride Level 113 MMOL/L (98-107) H Carbon Dioxide Level 23 MMOL/L (21-32) Anion Gap 10 mmol/L (5-15) Blood Urea Nitrogen 10 mg/dL (7-18) Creatinine 0.9 MG/DL (0.55-1.30) Estimat Glomerular Filtration Rate > 60 mL/min (>60) Glucose Level 106 MG/DL (74-106) Calcium Level 8.2 MG/DL (8.5-10.1) L Phosphorus Level 2.3 MG/DL (2.5-4.9) L Magnesium Level 1.9 MG/DL (1.8-2.4) Total Bilirubin 1.3 MG/DL (0.2-1.0) H Direct Bilirubin 0.6 MG/DL (0.0-0.3) H Aspartate Amino Transf (AST/SGOT) 56 U/L (15-37) H Alanine Aminotransferase (ALT/SGPT) 65 U/L (12-78) Alkaline Phosphatase 263 U/L (46-116) H C-Reactive Protein, Quantitative 24.8 mg/dL (0.00-0.90) H Pro-B-Type Natriuretic Peptide 9033 pg/mL (0-125) H Total Protein 5.1 G/DL (6.4-8.2) L Albumin 1.8 G/DL (3.4-5.0) L Globulin 3.3 g/dL Albumin/Globulin Ratio 0.5 (1.0-2.7) L Phenytoin (Dilantin) Level 4.4 ug/mL (10-20) L Current Medications Medications (Trade) Dose Ordered Sig/Bere Route PRN Reason Start Time Stop Time Status Last Admin Dose Admin Acetaminophen (Tylenol) 650 mg Q4H PRN GT Temp >100.5 02/19/20 22:00 03/20/20 21:59 02/23/20 11:00 Chlorhexidine Gluconate (Jane-Hex 2%) 1 applic DAILY@2000 TOPIC 02/20/20 20:00 05/20/20 19:59 02/24/20 20:00 Dopamine HCl/ Dextrose 250 ml @ 0 mls/hr Q24H IV 02/19/20 21:00 05/19/20 20:59 02/21/20 03:10 Levetiracetam 100 ml @ 400 mls/hr Q12HR IVPB 02/20/20 09:00 05/20/20 08:59 02/25/20 08:36 Lorazepam (Ativan 2mg/ml 1ml) 2 mg Q6H PRN IV For Seizures 02/19/20 22:00 02/26/20 21:59 02/25/20 11:10 Meropenem 1 gm/ Sodium Chloride 55 ml @ 110 mls/hr Q8HR IVPB 02/19/20 22:00 02/28/20 21:59 02/25/20 06:11 Metoclopramide HCl (Reglan) 10 mg Q8HR IVP 02/24/20 10:23 03/25/20 10:22 02/25/20 06:11 Metronidazole 100 ml @ 100 mls/hr Q8HR IVPB 02/24/20 14:00 03/02/20 13:59 02/25/20 06:01 Midodrine (Pro-Amatine) 2.5 mg Q8HR GT 02/25/20 14:00 05/25/20 13:59 UNV Morphine Sulfate (Morphine Sulfate) 2 mg Q4H PRN IVP For Pain 02/23/20 12:15 03/01/20 12:14 Norepinephrine Bitartrate 16 mg/ Dextrose 566 ml @ 0 mls/hr Q24H IV 02/22/20 23:00 03/23/20 22:59 02/24/20 00:12 Pantoprazole (Protonix) 40 mg Q12HR IVP 02/24/20 21:00 03/21/20 08:59 02/25/20 08:36 Phenytoin 100 mg/ Sodium Chloride 57 ml @ 114 mls/hr Q12HR IVPB 02/24/20 21:00 03/21/20 00:00 02/25/20 08:36 Potassium Phosphate 20 mm/ Sodium Chloride 281.6667 ml @ 46.944 m... ONCE ONCE IV 02/25/20 10:00 02/25/20 15:59 02/25/20 09:55 Potassium Chloride (K-Dur) 20 meq DAILY ORAL 02/24/20 16:15 05/24/20 16:14 02/25/20 08:36 Vancomycin HCl (Vanco rx to dose) 1 ea DAILY PRN MISC Per rx protocol 02/19/20 21:15 03/20/20 21:14 Vancomycin HCl 1 gm/Sodium Chloride 275 ml @ 183.708 mls/hr Q8H IVPB 02/21/20 14:00 02/26/20 13:59 02/25/20 07:16 Lulu Gurrola MD February 25, 2020 11:17
[2020-02-25] MEDS: Acetaminophen 650mg/20.3ml GT PRN (11:40)
--- NOTE | 2020-02-25 11:42 | Pulmonology Progress Note ---
Subjective ROS Limited/Unobtainable: Yes Interval Events: None new; remains intubated Constitutional: Reports: other - no fever today HEENT: Repors: no symptoms Respiratory: Reports: no symptoms Cardiovascular: Reports: no symptoms Gastrointestinal/Abdominal: Reports: diarrhea Allergies: Coded Allergies: PENICILLINS (Verified Allergy, Unknown, 02/14/18) Objective Last 24 Hour Vital Signs Date Time Temp Pulse Resp B/P (MAP) Pulse Ox O2 Delivery O2 Flow Rate FiO2 02/25/20 11:00 99.8 110 31 108/70 (83) 100 02/25/20 10:36 106 23 40 02/25/20 10:30 108 23 99/71 (80) 100 02/25/20 10:00 101 20 110/66 (81) 100 02/25/20 09:13 100 02/25/20 09:00 100 22 100/70 (80) 100 02/25/20 08:30 99 24 108/67 (81) 100 02/25/20 08:00 40 02/25/20 08:00 87 02/25/20 08:00 92 21 102/69 (80) 100 02/25/20 08:00 Mechanical Ventilator Mechanical Ventilator 02/25/20 07:30 99.7 95 22 98/66 (77) 100 02/25/20 07:10 96 20 40 02/25/20 07:00 103 21 103/67 (79) 100 02/25/20 06:30 103 21 02/25/20 06:00 97 21 110/67 (81) 100 02/25/20 05:30 107 21 108/67 (81) 100 02/25/20 05:00 97 7 96/66 (76) 100 02/25/20 04:30 107 24 105/68 (80) 100 02/25/20 04:00 99.5 101 30 107/74 (85) 100 02/25/20 04:00 40 02/25/20 04:00 99 02/25/20 04:00 Mechanical Ventilator Mechanical Ventilator 02/25/20 03:50 99 21 40 02/25/20 03:30 105 30 117/77 (90) 100 02/25/20 03:00 114 30 113/76 (88) 100 02/25/20 02:30 119 28 114/70 (85) 93 02/25/20 02:00 103 22 108/72 (84) 100 02/25/20 02:00 134/70 02/25/20 01:30 103 23 109/68 (82) 100 02/25/20 01:00 103 22 107/70 (82) 100 02/25/20 01:00 111/71 02/25/20 00:30 104 21 97/61 (73) 98 02/25/20 00:00 99.7 108 22 100/65 (77) 100 02/25/20 00:00 100/65 02/25/20 00:00 Mechanical Ventilator Mechanical Ventilator 02/24/20 23:30 111 27 108/72 (84) 100 02/24/20 23:08 101 23 40 02/24/20 23:00 102 25 111/74 (86) 100 02/24/20 23:00 115/81 02/24/20 22:30 110 30 110/73 (85) 100 02/24/20 22:00 106 22 105/73 (84) 100 02/24/20 22:00 105/73 02/24/20 21:30 101 24 115/81 (92) 100 02/24/20 21:00 98 24 122/81 (95) 100 02/24/20 21:00 118/83 02/24/20 21:00 110/45 02/24/20 20:30 102 25 120/78 (92) 100 02/24/20 20:00 40 02/24/20 20:00 99.8 102 26 119/80 (93) 100 02/24/20 20:00 Mechanical Ventilator Mechanical Ventilator 02/24/20 20:00 118/80 02/24/20 20:00 100 02/24/20 19:46 99 27 40 02/24/20 19:30 108 31 123/83 (96) 69 02/24/20 19:00 113 29 141/95 (110) 64 02/24/20 18:00 127/85 02/24/20 18:00 103 32 127/85 (99) 02/24/20 17:30 101 25 136/113 (121) 69 02/24/20 17:00 96 31 119/83 (95) 02/24/20 16:34 102 02/24/20 16:00 90 02/24/20 16:00 Mechanical Ventilator Mechanical Ventilator 02/24/20 16:00 40 02/24/20 16:00 99.7 91 25 124/77 (93) 100 02/24/20 16:00 119/83 02/24/20 15:00 110/70 02/24/20 15:00 88 23 110/70 (83) 100 02/24/20 14:42 85 20 40 02/24/20 14:30 84 22 109/71 (84) 100 02/24/20 14:00 112/72 02/24/20 14:00 99.4 95 33 112/72 (85) 99 02/24/20 13:00 89 24 105/66 (79) 100 02/24/20 12:30 88 25 104/71 (82) 100 02/24/20 12:00 Mechanical Ventilator Mechanical Ventilator 02/24/20 12:00 40 02/24/20 12:00 99.4 114 22 113/67 (82) 100 Intake and Output 02/24/20 02/25/20 19:00 07:00 Intake Total 509.740 ml 863.66 ml Output Total 1065 ml 1800 ml Balance -555.260 ml -936.34 ml IV Total 509.740 ml 863.66 ml Output Urine Total 1065 ml 1600 ml Stool Total 200 ml Chest Tube Drainage Total 0 ml General Appearance: no acute distress HEENT: normocephalic Respiratory: chest wall non-tender, lungs clear Cardiovascular: normal peripheral pulses Abdomen: normal bowel sounds Microbiology Date/Time Source Procedure Growth Status 02/24/20 13:00 Sputum Gram Stain - Final Resulted 02/24/20 13:00 Sputum Sputum Culture Pending Resulted 02/23/20 15:00 Sputum Induced Gram Stain - Final Resulted 02/23/20 15:00 Sputum Culture - Preliminary Gram Negative Bacillus 1 Resulted Laboratory Tests 02/25/20 03:55: White Blood Count 17.4H, Red Blood Count 2.95L, Hemoglobin 9.2L, Hematocrit 26.2L, Mean Corpuscular Volume 89, Mean Corpuscular Hemoglobin 31.1H, Mean Corpuscular Hemoglobin Concent 35.1, Red Cell Distribution Width 11.7, Platelet Count 35L, Mean Platelet Volume 11.4H, Neutrophils (%) (Auto) , Lymphocytes (%) (Auto) , Monocytes (%) (Auto) , Eosinophils (%) (Auto) , Basophils (%) (Auto) , Differential Total Cells Counted 100, Neutrophils % (Manual) 84H, Lymphocytes % (Manual) 10L, Monocytes % (Manual) 4, Eosinophils % (Manual) 2, Basophils % ( Manual) 0, Band Neutrophils 0, Platelet Estimate DecreasedL, Platelet Morphology Normal, Hypochromasia 2+, Anisocytosis 1+, Sodium Level 146H, Potassium Level 3.8, Chloride Level 113H, Carbon Dioxide Level 23, Anion Gap 10 , Blood Urea Nitrogen 10, Creatinine 0.9, Estimat Glomerular Filtration Rate > 60, Glucose Level 106, Calcium Level 8.2L, Phosphorus Level 2.3L, Magnesium Level 1.9, Total Bilirubin 1.3H, Direct Bilirubin 0.6H, Aspartate Amino Transf ( AST/SGOT) 56H, Alanine Aminotransferase (ALT/SGPT) 65, Alkaline Phosphatase 263H , C-Reactive Protein, Quantitative 24.8H, Pro-B-Type Natriuretic Peptide 9033H, Total Protein 5.1L, Albumin 1.8L, Globulin 3.3, Albumin/Globulin Ratio 0.5L, Phenytoin (Dilantin) Level 4.4L Current Medications Medications (Trade) Dose Ordered Sig/Bere Route PRN Reason Start Time Stop Time Status Last Admin Dose Admin Acetaminophen (Tylenol) 650 mg Q4H PRN GT Temp >100.5 02/19/20 22:00 03/20/20 21:59 02/25/20 11:40 Chlorhexidine Gluconate (Jane-Hex 2%) 1 applic DAILY@2000 TOPIC 02/20/20 20:00 05/20/20 19:59 02/24/20 20:00 Dopamine HCl/ Dextrose 250 ml @ 0 mls/hr Q24H IV 02/19/20 21:00 05/19/20 20:59 02/21/20 03:10 Levetiracetam 100 ml @ 400 mls/hr Q12HR IVPB 02/20/20 09:00 05/20/20 08:59 02/25/20 08:36 Lorazepam (Ativan 2mg/ml 1ml) 2 mg Q6H PRN IV For Seizures 02/19/20 22:00 02/26/20 21:59 02/25/20 11:10 Meropenem 1 gm/ Sodium Chloride 55 ml @ 110 mls/hr Q8HR IVPB 02/19/20 22:00 02/28/20 21:59 02/25/20 06:11 Metoclopramide HCl (Reglan) 10 mg Q8HR IVP 02/24/20 10:23 03/25/20 10:22 02/25/20 06:11 Metronidazole 100 ml @ 100 mls/hr Q8HR IVPB 02/24/20 14:00 03/02/20 13:59 02/25/20 06:01 Midodrine (Pro-Amatine) 2.5 mg Q8HR GT 02/25/20 14:00 05/25/20 13:59 UNV Morphine Sulfate (Morphine Sulfate) 2 mg Q4H PRN IVP For Pain 02/23/20 12:15 03/01/20 12:14 Norepinephrine Bitartrate 16 mg/ Dextrose 566 ml @ 0 mls/hr Q24H IV 02/22/20 23:00 03/23/20 22:59 02/24/20 00:12 Pantoprazole (Protonix) 40 mg Q12HR IVP 02/24/20 21:00 03/21/20 08:59 02/25/20 08:36 Phenytoin 100 mg/ Sodium Chloride 57 ml @ 114 mls/hr Q12HR IVPB 02/24/20 21:00 03/21/20 00:00 02/25/20 08:36 Potassium Phosphate 20 mm/ Sodium Chloride 281.6667 ml @ 46.944 m... ONCE ONCE IV 02/25/20 10:00 02/25/20 15:59 02/25/20 09:55 Potassium Chloride (K-Dur) 20 meq DAILY ORAL 02/24/20 16:15 05/24/20 16:14 02/25/20 08:36 Assessment/Plan Assessment/Plan IMPRESSION: 1. Status post left pneumothorax with chest tube in place. 2. Tracheal bleeding, status post removal. 3. Respiratory failure, status post orotracheal intubation. 4. Transaminitis. 5. Leukocytosis. 6. Chronic encephalopathy. 7. Chronic respiratory failure. DISCUSSION: Continue assist-control mechanical ventilation. I will decrease PEEP as much as possible. Keep chest tube to suction. Broad-spectrum antibiotics. Enteral feedings. Continue medications. Follow carefully. Seen by surgery; will need trach revision Surgery notes reviewed; family discussion today Family reportedly considering terminal extubation Will monitor Tarun Ellis Omar Syed MD February 25, 2020 11:42
--- NOTE | 2020-02-25 13:41 | Surgery Progress Note ---
Surgery Progress Note Subjective Additional Comments no acute events ill appearing waiting for family discussion to eval trach vs terminal extubation Objective Last 24 Hour Vital Signs Date Time Temp Pulse Resp B/P (MAP) Pulse Ox O2 Delivery O2 Flow Rate FiO2 02/25/20 12:10 100.0 02/25/20 12:00 40 02/25/20 12:00 Mechanical Ventilator Mechanical Ventilator 02/25/20 12:00 108 22 101/64 (76) 100 02/25/20 11:30 100.8 112 24 100/69 (79) 100 02/25/20 11:00 99.8 110 31 108/70 (83) 100 02/25/20 10:36 106 23 40 02/25/20 10:30 108 23 99/71 (80) 100 02/25/20 10:00 101 20 110/66 (81) 100 02/25/20 09:13 100 02/25/20 09:00 100 22 100/70 (80) 100 02/25/20 08:30 99 24 108/67 (81) 100 02/25/20 08:00 40 02/25/20 08:00 87 02/25/20 08:00 92 21 102/69 (80) 100 02/25/20 08:00 Mechanical Ventilator Mechanical Ventilator 02/25/20 07:30 99.7 95 22 98/66 (77) 100 02/25/20 07:10 96 20 40 02/25/20 07:00 103 21 103/67 (79) 100 02/25/20 06:30 103 21 02/25/20 06:00 97 21 110/67 (81) 100 02/25/20 05:30 107 21 108/67 (81) 100 02/25/20 05:00 97 7 96/66 (76) 100 02/25/20 04:30 107 24 105/68 (80) 100 02/25/20 04:00 99.5 101 30 107/74 (85) 100 02/25/20 04:00 40 02/25/20 04:00 99 02/25/20 04:00 Mechanical Ventilator Mechanical Ventilator 02/25/20 03:50 99 21 40 02/25/20 03:30 105 30 117/77 (90) 100 02/25/20 03:00 114 30 113/76 (88) 100 02/25/20 02:30 119 28 114/70 (85) 93 02/25/20 02:00 103 22 108/72 (84) 100 02/25/20 02:00 134/70 02/25/20 01:30 103 23 109/68 (82) 100 02/25/20 01:00 103 22 107/70 (82) 100 02/25/20 01:00 111/71 02/25/20 00:30 104 21 97/61 (73) 98 02/25/20 00:00 99.7 108 22 100/65 (77) 100 02/25/20 00:00 100/65 02/25/20 00:00 Mechanical Ventilator Mechanical Ventilator 02/24/20 23:30 111 27 108/72 (84) 100 02/24/20 23:08 101 23 40 02/24/20 23:00 102 25 111/74 (86) 100 02/24/20 23:00 115/81 02/24/20 22:30 110 30 110/73 (85) 100 02/24/20 22:00 106 22 105/73 (84) 100 02/24/20 22:00 105/73 02/24/20 21:30 101 24 115/81 (92) 100 02/24/20 21:00 98 24 122/81 (95) 100 02/24/20 21:00 118/83 02/24/20 21:00 110/45 02/24/20 20:30 102 25 120/78 (92) 100 02/24/20 20:00 40 02/24/20 20:00 99.8 102 26 119/80 (93) 100 02/24/20 20:00 Mechanical Ventilator Mechanical Ventilator 02/24/20 20:00 118/80 02/24/20 20:00 100 02/24/20 19:46 99 27 40 02/24/20 19:30 108 31 123/83 (96) 69 02/24/20 19:00 113 29 141/95 (110) 64 02/24/20 18:00 127/85 02/24/20 18:00 103 32 127/85 (99) 02/24/20 17:30 101 25 136/113 (121) 69 02/24/20 17:00 96 31 119/83 (95) 02/24/20 16:34 102 02/24/20 16:00 90 02/24/20 16:00 Mechanical Ventilator Mechanical Ventilator 02/24/20 16:00 40 02/24/20 16:00 99.7 91 25 124/77 (93) 100 02/24/20 16:00 119/83 02/24/20 15:00 110/70 02/24/20 15:00 88 23 110/70 (83) 100 02/24/20 14:42 85 20 40 02/24/20 14:30 84 22 109/71 (84) 100 02/24/20 14:00 112/72 02/24/20 14:00 99.4 95 33 112/72 (85) 99 I&O Intake and Output 02/24/20 02/25/20 19:00 07:00 Intake Total 509.740 ml 863.66 ml Output Total 1065 ml 1800 ml Balance -555.260 ml -936.34 ml IV Total 509.740 ml 863.66 ml Output Urine Total 1065 ml 1600 ml Stool Total 200 ml Chest Tube Drainage Total 0 ml Dressing: other Wound: other Drains: other Cardiovascular: RSR Respiratory: decreased breath sounds Abdomen: soft, non-tender, present bowel sounds Extremities: no cyanosis Laboratory Tests Test 02/25/20 03:55 White Blood Count 17.4 K/UL (4.8-10.8) H Red Blood Count 2.95 M/UL (4.20-5.40) L Hemoglobin 9.2 G/DL (12.0-16.0) L Hematocrit 26.2 % (37.0-47.0) L Mean Corpuscular Volume 89 FL (80-99) Mean Corpuscular Hemoglobin 31.1 PG (27.0-31.0) H Mean Corpuscular Hemoglobin Concent 35.1 G/DL (32.0-36.0) Red Cell Distribution Width 11.7 % (11.6-14.8) Platelet Count 35 K/UL (150-450) L Mean Platelet Volume 11.4 FL (6.5-10.1) H Neutrophils (%) (Auto) % (45.0-75.0) Lymphocytes (%) (Auto) % (20.0-45.0) Monocytes (%) (Auto) % (1.0-10.0) Eosinophils (%) (Auto) % (0.0-3.0) Basophils (%) (Auto) % (0.0-2.0) Differential Total Cells Counted 100 Neutrophils % (Manual) 84 % (45-75) H Lymphocytes % (Manual) 10 % (20-45) L Monocytes % (Manual) 4 % (1-10) Eosinophils % (Manual) 2 % (0-3) Basophils % (Manual) 0 % (0-2) Band Neutrophils 0 % (0-8) Platelet Estimate Decreased L Platelet Morphology Normal Hypochromasia 2+ Anisocytosis 1+ Sodium Level 146 MMOL/L (136-145) H Potassium Level 3.8 MMOL/L (3.5-5.1) Chloride Level 113 MMOL/L (98-107) H Carbon Dioxide Level 23 MMOL/L (21-32) Anion Gap 10 mmol/L (5-15) Blood Urea Nitrogen 10 mg/dL (7-18) Creatinine 0.9 MG/DL (0.55-1.30) Estimat Glomerular Filtration Rate > 60 mL/min (>60) Glucose Level 106 MG/DL (74-106) Calcium Level 8.2 MG/DL (8.5-10.1) L Phosphorus Level 2.3 MG/DL (2.5-4.9) L Magnesium Level 1.9 MG/DL (1.8-2.4) Total Bilirubin 1.3 MG/DL (0.2-1.0) H Direct Bilirubin 0.6 MG/DL (0.0-0.3) H Aspartate Amino Transf (AST/SGOT) 56 U/L (15-37) H Alanine Aminotransferase (ALT/SGPT) 65 U/L (12-78) Alkaline Phosphatase 263 U/L (46-116) H C-Reactive Protein, Quantitative 24.8 mg/dL (0.00-0.90) H Pro-B-Type Natriuretic Peptide 9033 pg/mL (0-125) H Total Protein 5.1 G/DL (6.4-8.2) L Albumin 1.8 G/DL (3.4-5.0) L Globulin 3.3 g/dL Albumin/Globulin Ratio 0.5 (1.0-2.7) L Phenytoin (Dilantin) Level 4.4 ug/mL (10-20) L Plan Problems: (1) Pneumothorax Assessment & Plan: cont chest tube to suction am cxr will monitor 1. Left-sided pneumothorax, approximately 50% by volume. 2. Extensive subcutaneous emphysema throughout the chest wall and neck soft tissues bilaterally. s/p chest tube Lungs: Persistent mild increased interstitial markings. The lungs are otherwise clear without focal consolidation. Pleural space: Interval significant improvement of the left-sided pneumothorax, no longer well seen. Heart: Unremarkable. No cardiomegaly. Mediastinum: Unremarkable. Bones/joints: Unremarkable. Soft tissues: Persistent but improved subcutaneous emphysema in the chest reed and neck soft tissues bilaterally. Tubes, lines and devices: Left-sided chest tube in place, with expected positioning. Endotracheal tube tip 3.2 cm above the emerita. Telemetry leads overlie the thorax. IMPRESSION: 1. Left-sided chest tube in place, with expected positioning. 2. Interval significant improvement of the left-sided pneumothorax, which is no longer well seen. 3. Persistent mild increased interstitial markings. This is nonspecific but may suggest mild interstitial edema or a mild pneumonitis. No focal consolidation. 4. Improved subcutaneous emphysema in the chest reed and neck soft tissues bilaterally. (2) Respiratory arrest Assessment & Plan: TRACH REMOVED, SITE BLEEDING. LT CHEST TUNE TO SUCTION. FEMORAL ACCESS will plan for trach new when stable (3) Respiratory distress (4) Tracheostomy complication Assessment & Plan: trach complication intubated on support will need to revise trach once stable thank you Hold on trach revision his family is considering terminal extubation At withdrawal of care JesusAnt February 25, 2020 13:41
[2020-02-25] MEDS: Dyna-Hex 2% Top Sol 2oz TOPIC SCH (20:22)
[2020-02-25] MEDS: DOPamine 400mg/250ml 250 ML IV SCH (21:00)
[2020-02-25] MEDS: Norepinephrine Bitartrate 16 MG in D5W 500ml 550 ML IV SCH (22:31)
[2020-02-26] VITALS (25 sets, daily range): BP systolic 79–122; BP diastolic 41–85
[2020-02-26] MEDS: Acetaminophen 650mg/20.3ml GT PRN ×2 (00:32→15:50)
[2020-02-26] MEDS: Meropenem 1gm in NS 55ml IVPB SCH ×3 (05:41→22:00)
[2020-02-26] MEDS: Metoclopramide 10mg/2ml Inj IVP SCH ×3 (05:42→22:00)
[2020-02-26 06:06] LABS: HEMATOCRIT 25.3 % (37.0-47.0); HEMOGLOBIN 8.8 G/DL (12.0-16.0); MEAN CORPUSCULAR VOLUME 88 FL (80-99); PLATELET COUNT 48 K/UL (150-450); RED BLOOD COUNT 2.87 M/UL (4.20-5.40); RED CELL DISTRIBUTION WIDTH 11.5 % (11.6-14.8); WHITE BLOOD COUNT 8.4 K/UL (4.8-10.8)
[2020-02-26 06:30] LABS: ALANINE AMINOTRANSFERASE 67 U/L (12-78); ALBUMIN 1.8 G/DL (3.4-5.0); ALBUMIN/GLOBULIN RATIO 0.5 (1.0-2.7); ALKALINE PHOSPHATASE 272 U/L (46-116); ANION GAP 9 mmol/L (5-15); ASPARTATE AMINO TRANSFERASE 60 U/L (15-37); BILIRUBIN,TOTAL 0.9 MG/DL (0.2-1.0); BLOOD UREA NITROGEN 14 mg/dL (7-18); CALCIUM 7.6 MG/DL (8.5-10.1); CARBON DIOXIDE 26 MMOL/L (21-32); CHLORIDE 113 MMOL/L (98-107); CREATININE 0.9 MG/DL (0.55-1.30); GAMMA GLUTAMYL TRANSPEPTIDASE 690 U/L (5-85); POTASSIUM 3.2 MMOL/L (3.5-5.1); SODIUM 148 MMOL/L (136-145)
[2020-02-26] MEDS: Phenytoin 100 MG in NS 55 ML IVPB SCH (08:35)
[2020-02-26] MEDS: Pantoprazole Inj IVP SCH ×2 (08:36→20:53)
[2020-02-26] MEDS: levETIRAcetam 500mg/NS100ml 100 ML IVPB SCH ×2 (08:36→20:54)
[2020-02-26] MEDS ORDERED: NS 275ml ONE ×4 (10:43→14:14)
[2020-02-26] MEDS ORDERED: Tubing IV Secondary IV ONE ×4 (10:43→14:05)
--- NOTE | 2020-02-26 10:56 | Surgery Progress Note ---
Surgery Progress Note Subjective Additional Comments tube to water seal today min output no n/v/f/c Objective Last 24 Hour Vital Signs Date Time Temp Pulse Resp B/P (MAP) Pulse Ox O2 Delivery O2 Flow Rate FiO2 02/26/20 10:00 112 32 109/74 (86) 100 02/26/20 09:00 108 25 113/67 (82) 100 02/26/20 08:00 Mechanical Ventilator Mechanical Ventilator 02/26/20 08:00 105 02/26/20 08:00 99.6 105 25 100/67 (78) 100 02/26/20 08:00 40 02/26/20 07:28 99 21 40 02/26/20 07:00 106 25 100/66 (77) 100 02/26/20 06:30 96 21 02/26/20 06:00 100 28 120/82 (95) 100 02/26/20 05:00 101 32 122/82 (95) 100 02/26/20 04:00 40 02/26/20 04:00 98.8 104 31 112/85 (94) 100 02/26/20 04:00 Mechanical Ventilator Mechanical Ventilator 02/26/20 04:00 87 02/26/20 03:38 109 27 40 02/26/20 03:00 101 25 109/72 (84) 100 02/26/20 02:00 89 20 107/83 (91) 100 02/26/20 01:02 100.5 02/26/20 01:00 108 29 113/71 (85) 100 02/26/20 00:00 40 02/26/20 00:00 Mechanical Ventilator Mechanical Ventilator 02/26/20 00:00 116 02/26/20 00:00 111 02/26/20 00:00 102 22 110/72 (85) 100 02/25/20 23:00 110 22 113/72 (86) 100 02/25/20 22:38 112 29 40 02/25/20 22:31 112/72 02/25/20 22:00 111 24 112/72 (85) 100 02/25/20 21:00 113 16 114/65 (81) 100 02/25/20 21:00 112/72 02/25/20 20:00 100.2 111 22 108/67 (81) 100 02/25/20 20:00 105 02/25/20 20:00 Mechanical Ventilator Mechanical Ventilator 02/25/20 19:36 116 26 40 02/25/20 19:00 108 21 1/60 (41) 99 02/25/20 18:00 109 22 103/63 (76) 99 02/25/20 17:30 110 16 100/72 (81) 99 02/25/20 17:09 109 26 102/65 (77) 100 02/25/20 16:00 99.7 106 23 101/76 (84) 100 02/25/20 16:00 Mechanical Ventilator Mechanical Ventilator 02/25/20 16:00 40 02/25/20 16:00 116 02/25/20 15:30 109 26 114/75 (88) 100 02/25/20 15:30 109 30 40 02/25/20 15:00 107 23 105/66 (79) 100 02/25/20 14:30 107 22 100/69 (79) 100 02/25/20 14:00 110 24 102/68 (79) 100 02/25/20 13:30 110 23 110/66 (81) 100 02/25/20 13:00 110 24 103/69 (80) 100 02/25/20 13:00 107 23 102/67 (79) 100 02/25/20 12:30 99.8 109 23 103/63 (76) 100 02/25/20 12:00 40 02/25/20 12:00 Mechanical Ventilator Mechanical Ventilator 02/25/20 12:00 106 02/25/20 12:00 111 02/25/20 12:00 108 22 101/64 (76) 100 02/25/20 11:30 100.8 112 24 100/69 (79) 100 02/25/20 11:00 99.8 110 31 108/70 (83) 100 I&O Intake and Output 02/25/20 02/26/20 19:00 07:00 Intake Total 200 ml 420 ml Output Total 1245 ml 920 ml Balance -1045 ml -500 ml Intake Free Water 30 ml 60 ml Tube Feeding 170 ml 360 ml Output Urine Total 1245 ml 860 ml Stool Total 50 ml Chest Tube Drainage Total 10 ml Dressing: other Wound: other Drains: other Cardiovascular: RSR Respiratory: decreased breath sounds Abdomen: soft, non-tender, present bowel sounds Extremities: no cyanosis Laboratory Tests Test 5/23/20 04:10 White Blood Count 8.4 K/UL (4.8-10.8) # Red Blood Count 2.87 M/UL (4.20-5.40) L Hemoglobin 8.8 G/DL (12.0-16.0) L Hematocrit 25.3 % (37.0-47.0) L Mean Corpuscular Volume 88 FL (80-99) Mean Corpuscular Hemoglobin 30.9 PG (27.0-31.0) Mean Corpuscular Hemoglobin Concent 34.9 G/DL (32.0-36.0) Red Cell Distribution Width 11.5 % (11.6-14.8) L Platelet Count 48 K/UL (150-450) L Mean Platelet Volume 10.6 FL (6.5-10.1) H Neutrophils (%) (Auto) % (45.0-75.0) Lymphocytes (%) (Auto) % (20.0-45.0) Monocytes (%) (Auto) % (1.0-10.0) Eosinophils (%) (Auto) % (0.0-3.0) Basophils (%) (Auto) % (0.0-2.0) Differential Total Cells Counted 100 Neutrophils % (Manual) 60 % (45-75) Lymphocytes % (Manual) 28 % (20-45) Monocytes % (Manual) 2 % (1-10) Eosinophils % (Manual) 8 % (0-3) H Basophils % (Manual) 2 % (0-2) Band Neutrophils 0 % (0-8) Platelet Estimate Decreased L Platelet Morphology Normal Hypochromasia 2+ Anisocytosis 1+ Spherocytes 2+ Sodium Level 148 MMOL/L (136-145) H Potassium Level 3.2 MMOL/L (3.5-5.1) L Chloride Level 113 MMOL/L (98-107) H Carbon Dioxide Level 26 MMOL/L (21-32) Anion Gap 9 mmol/L (5-15) Blood Urea Nitrogen 14 mg/dL (7-18) Creatinine 0.9 MG/DL (0.55-1.30) Estimat Glomerular Filtration Rate > 60 mL/min (>60) Glucose Level 97 MG/DL (74-106) Calcium Level 7.6 MG/DL (8.5-10.1) L Phosphorus Level 4.0 MG/DL (2.5-4.9) Magnesium Level 1.5 MG/DL (1.8-2.4) L Total Bilirubin 0.9 MG/DL (0.2-1.0) Gamma Glutamyl Transpeptidase 690 U/L (5-85) H Aspartate Amino Transf (AST/SGOT) 60 U/L (15-37) H Alanine Aminotransferase (ALT/SGPT) 67 U/L (12-78) Alkaline Phosphatase 272 U/L (46-116) H Total Protein 5.4 G/DL (6.4-8.2) L Albumin 1.8 G/DL (3.4-5.0) L Globulin 3.6 g/dL Albumin/Globulin Ratio 0.5 (1.0-2.7) L Phenytoin (Dilantin) Level 3.7 ug/mL (10-20) L Plan Problems: (1) Pneumothorax Assessment & Plan: cont chest tube to suction am cxr will monitor 1. Left-sided pneumothorax, approximately 50% by volume. 2. Extensive subcutaneous emphysema throughout the chest wall and neck soft tissues bilaterally. s/p chest tube Lungs: Persistent mild increased interstitial markings. The lungs are otherwise clear without focal consolidation. Pleural space: Interval significant improvement of the left-sided pneumothorax, no longer well seen. Heart: Unremarkable. No cardiomegaly. Mediastinum: Unremarkable. Bones/joints: Unremarkable. Soft tissues: Persistent but improved subcutaneous emphysema in the chest reed and neck soft tissues bilaterally. Tubes, lines and devices: Left-sided chest tube in place, with expected positioning. Endotracheal tube tip 3.2 cm above the emerita. Telemetry leads overlie the thorax. IMPRESSION: 1. Left-sided chest tube in place, with expected positioning. 2. Interval significant improvement of the left-sided pneumothorax, which is no longer well seen. 3. Persistent mild increased interstitial markings. This is nonspecific but may suggest mild interstitial edema or a mild pneumonitis. No focal consolidation. 4. Improved subcutaneous emphysema in the chest reed and neck soft tissues bilaterally. (2) Respiratory arrest Assessment & Plan: TRACH REMOVED, SITE BLEEDING. LT CHEST TUNE TO SUCTION. FEMORAL ACCESS will plan for trach new when stable (3) Respiratory distress (4) Tracheostomy complication Assessment & Plan: trach complication intubated on support will need to revise trach once stable thank you Hold on trach revision his family is considering terminal extubation At withdrawal of care Ant Lee February 26, 2020 10:56
[2020-02-26] MEDS ORDERED: Sodium Chloride for KCL Premix x 2hrs IV SCH (11:00)
--- NOTE | 2020-02-26 11:31 | Pulmonology Progress Note ---
Subjective ROS Limited/Unobtainable: Yes Interval Events: None new; remains intubated Constitutional: Reports: other - no fever today HEENT: Repors: no symptoms Respiratory: Reports: no symptoms Cardiovascular: Reports: no symptoms Gastrointestinal/Abdominal: Reports: diarrhea Allergies: Coded Allergies: PENICILLINS (Verified Allergy, Unknown, 02/14/18) Objective Last 24 Hour Vital Signs Date Time Temp Pulse Resp B/P (MAP) Pulse Ox O2 Delivery O2 Flow Rate FiO2 02/26/20 11:11 108 27 40 02/26/20 10:00 112 32 109/74 (86) 100 02/26/20 09:00 108 25 113/67 (82) 100 02/26/20 08:00 Mechanical Ventilator Mechanical Ventilator 02/26/20 08:00 105 02/26/20 08:00 99.6 105 25 100/67 (78) 100 02/26/20 08:00 40 02/26/20 07:28 99 21 40 02/26/20 07:00 106 25 100/66 (77) 100 02/26/20 06:30 96 21 02/26/20 06:00 100 28 120/82 (95) 100 02/26/20 05:00 101 32 122/82 (95) 100 02/26/20 04:00 40 02/26/20 04:00 98.8 104 31 112/85 (94) 100 02/26/20 04:00 Mechanical Ventilator Mechanical Ventilator 02/26/20 04:00 87 02/26/20 03:38 109 27 40 02/26/20 03:00 101 25 109/72 (84) 100 02/26/20 02:00 89 20 107/83 (91) 100 02/26/20 01:02 100.5 02/26/20 01:00 108 29 113/71 (85) 100 02/26/20 00:00 40 02/26/20 00:00 Mechanical Ventilator Mechanical Ventilator 02/26/20 00:00 116 02/26/20 00:00 111 02/26/20 00:00 102 22 110/72 (85) 100 02/25/20 23:00 110 22 113/72 (86) 100 02/25/20 22:38 112 29 40 02/25/20 22:31 112/72 02/25/20 22:00 111 24 112/72 (85) 100 02/25/20 21:00 113 16 114/65 (81) 100 02/25/20 21:00 112/72 02/25/20 20:00 100.2 111 22 108/67 (81) 100 02/25/20 20:00 105 02/25/20 20:00 Mechanical Ventilator Mechanical Ventilator 02/25/20 19:36 116 26 40 02/25/20 19:00 108 21 1/60 (41) 99 02/25/20 18:00 109 22 103/63 (76) 99 02/25/20 17:30 110 16 100/72 (81) 99 02/25/20 17:09 109 26 102/65 (77) 100 02/25/20 16:00 99.7 106 23 101/76 (84) 100 02/25/20 16:00 Mechanical Ventilator Mechanical Ventilator 02/25/20 16:00 40 02/25/20 16:00 116 02/25/20 15:30 109 26 114/75 (88) 100 02/25/20 15:30 109 30 40 02/25/20 15:00 107 23 105/66 (79) 100 02/25/20 14:30 107 22 100/69 (79) 100 02/25/20 14:00 110 24 102/68 (79) 100 02/25/20 13:30 110 23 110/66 (81) 100 02/25/20 13:00 110 24 103/69 (80) 100 02/25/20 13:00 107 23 102/67 (79) 100 02/25/20 12:30 99.8 109 23 103/63 (76) 100 02/25/20 12:00 40 02/25/20 12:00 Mechanical Ventilator Mechanical Ventilator 02/25/20 12:00 106 02/25/20 12:00 111 02/25/20 12:00 108 22 101/64 (76) 100 Intake and Output 02/25/20 02/26/20 19:00 07:00 Intake Total 200 ml 520 ml Output Total 1245 ml 920 ml Balance -1045 ml -400 ml Intake Free Water 30 ml 60 ml IV Total 100 ml Tube Feeding 170 ml 360 ml Output Urine Total 1245 ml 860 ml Stool Total 50 ml Chest Tube Drainage Total 10 ml General Appearance: no acute distress HEENT: normocephalic Respiratory: chest wall non-tender, lungs clear Cardiovascular: normal peripheral pulses Abdomen: normal bowel sounds Microbiology Date/Time Source Procedure Growth Status 02/24/20 13:00 Sputum Gram Stain - Final Resulted 02/24/20 13:00 Sputum Culture - Preliminary Gram Negative Bacillus 1 Resulted 02/23/20 15:00 Sputum Induced Gram Stain - Final Resulted 02/23/20 15:00 Sputum Culture - Preliminary Pseudomonas Aeruginosa Gram Negative Bacillus 2 Resulted Laboratory Tests 02/26/20 04:10: White Blood Count 8.4#, Red Blood Count 2.87L, Hemoglobin 8.8L, Hematocrit 25.3L , Mean Corpuscular Volume 88, Mean Corpuscular Hemoglobin 30.9, Mean Corpuscular Hemoglobin Concent 34.9, Red Cell Distribution Width 11.5L, Platelet Count 48L, Mean Platelet Volume 10.6H, Neutrophils (%) (Auto) , Lymphocytes (%) (Auto) , Monocytes (%) (Auto) , Eosinophils (%) (Auto) , Basophils (%) (Auto) , Differential Total Cells Counted 100, Neutrophils % ( Manual) 60, Lymphocytes % (Manual) 28, Monocytes % (Manual) 2, Eosinophils % ( Manual) 8H, Basophils % (Manual) 2, Band Neutrophils 0, Platelet Estimate DecreasedL, Platelet Morphology Normal, Hypochromasia 2+, Anisocytosis 1+, Spherocytes 2+, Sodium Level 148H, Potassium Level 3.2L, Chloride Level 113H, Carbon Dioxide Level 26, Anion Gap 9, Blood Urea Nitrogen 14, Creatinine 0.9, Estimat Glomerular Filtration Rate > 60, Glucose Level 97, Calcium Level 7.6L, Phosphorus Level 4.0, Magnesium Level 1.5L, Total Bilirubin 0.9, Gamma Glutamyl Transpeptidase 690H, Aspartate Amino Transf (AST/SGOT) 60H, Alanine Aminotransferase (ALT/SGPT) 67, Alkaline Phosphatase 272H, Total Protein 5.4L, Albumin 1.8L, Globulin 3.6, Albumin/Globulin Ratio 0.5L, Phenytoin (Dilantin) Level 3.7L Current Medications Medications (Trade) Dose Ordered Sig/Bere Route PRN Reason Start Time Stop Time Status Last Admin Dose Admin Acetaminophen (Tylenol) 650 mg Q4H PRN GT Temp >100.5 02/19/20 22:00 03/20/20 21:59 02/26/20 00:32 Chlorhexidine Gluconate (Jane-Hex 2%) 1 applic DAILY@2000 TOPIC 02/20/20 20:00 05/20/20 19:59 02/25/20 20:22 Dopamine HCl/ Dextrose 250 ml @ 0 mls/hr Q24H IV 02/19/20 21:00 05/19/20 20:59 02/21/20 03:10 Levetiracetam 100 ml @ 400 mls/hr Q12HR IVPB 02/20/20 09:00 05/20/20 08:59 02/26/20 08:36 Lorazepam (Ativan 2mg/ml 1ml) 2 mg Q6H PRN IV For Seizures 02/19/20 22:00 02/26/20 21:59 02/25/20 11:10 Magnesium Sulfate 100 ml @ 100 mls/hr Q1H IVPB 02/26/20 10:45 02/26/20 14:44 02/26/20 11:13 Meropenem 1 gm/ Sodium Chloride 55 ml @ 110 mls/hr Q8HR IVPB 02/19/20 22:00 02/28/20 21:59 02/26/20 05:41 Metoclopramide HCl (Reglan) 10 mg Q8HR IVP 02/24/20 10:23 03/25/20 10:22 02/26/20 05:42 Metronidazole 100 ml @ 100 mls/hr Q8HR IVPB 02/24/20 14:00 03/02/20 13:59 02/26/20 05:41 Midodrine (Pro-Amatine) 2.5 mg Q8HR GT 02/25/20 14:00 05/25/20 13:59 02/26/20 05:42 Morphine Sulfate (Morphine Sulfate) 2 mg Q4H PRN IVP For Pain 02/23/20 12:15 03/01/20 12:14 Norepinephrine Bitartrate 16 mg/ Dextrose 566 ml @ 0 mls/hr Q24H IV 02/22/20 23:00 03/23/20 22:59 02/24/20 00:12 Pantoprazole (Protonix) 40 mg Q12HR IVP 02/24/20 21:00 03/21/20 08:59 02/26/20 08:36 Phenytoin 100 mg/ Sodium Chloride 57 ml @ 114 mls/hr Q12HR IVPB 02/24/20 21:00 03/21/20 00:00 02/26/20 08:35 Potassium Chloride 100 ml @ 100 mls/hr Q1HR IVPB 02/26/20 11:00 02/26/20 12:59 02/26/20 11:16 Potassium Chloride (K-Dur) 20 meq DAILY ORAL 02/24/20 16:15 05/24/20 16:14 02/26/20 08:36 Sodium Chloride 200 ml @ 100 mls/hr Q2H IV 02/26/20 11:00 02/26/20 12:59 02/26/20 11:15 Assessment/Plan Assessment/Plan IMPRESSION: 1. Status post left pneumothorax with chest tube in place. 2. Tracheal bleeding, status post removal. 3. Respiratory failure, status post orotracheal intubation. 4. Transaminitis. 5. Leukocytosis. 6. Chronic encephalopathy. 7. Chronic respiratory failure. DISCUSSION: Continue assist-control mechanical ventilation. I will decrease PEEP as much as possible. Keep chest tube to suction. Broad-spectrum antibiotics. Enteral feedings. Continue medications. Follow carefully. Seen by surgery; will need trach revision Surgery notes reviewed; family discussion noted Family reportedly considering terminal extubation Will monitor Celestino Haile M.D. Celestino Haile MD February 26, 2020 11:31
--- NOTE | 2020-02-26 11:48 | Nephrology Progress Note ---
Assessment/Plan Problem List: (1) Electrolyte imbalance (2) Elevated liver enzymes (3) Respiratory failure (4) Hypoalbuminemia (5) Proteinuria (6) Leukocytosis Assessment HypoKalemia Proteinuria, hypoalbuminemia, BUN and creatinine within normal range Chronic respiratory failure Status post left pneumothorax with chest tube in place Transaminitis Leukocytosis Sepsis, bacteremia with gram-positive cocci Anoxic encephalopathy Seizure disorder Penicillin allergy Hypertension Plan February 25: More potassium and magnesium supplement today Increase GT feeding Adjust Dilantin dose Increase midodrine Continue to monitor her electrolytes and renal parameters Discussed with RN Per orders February 24: Today's lab results noted. Serum potassium now within acceptable range GT tube is now clamped will start GT feeding. Continue IV Reglan. DC IV fluid and IV Lasix. Monitor electrolytes and renal parameters. Midodrine through GT tube for blood pressure below 100 systolic Discussed with RN February 23: We will clamp the GT and disconnected from suction Increase Protonix to every 12 hours IV IV Reglan 100 mEq of KCl intravenously Continue to monitor electrolytes Discussed with RN February 22: Low potassium is replaced intravenously and via GT Stool for C. difficile sent Will monitor electrolytes Continue per consultants regarding normalizing LFTs and underlying sepsis February 21: Leukocytosis worsened, Blood pressure borderline low LFTs remain elevated Abnormal magnesium potassium and phosphorus on the can panel Supplements for potassium magnesium and phosphorus ordered and continue as needed Continue to check calcium and phosphorus and liver function tests Continue per ID and pulmonary Keep the blood pressure and blood sugar in check Per orders Subjective ROS Limited/Unobtainable: Yes Objective Objective Last 24 Hour Vital Signs Date Time Temp Pulse Resp B/P (MAP) Pulse Ox O2 Delivery O2 Flow Rate FiO2 02/26/20 11:11 108 27 40 02/26/20 10:00 112 32 109/74 (86) 100 02/26/20 09:00 108 25 113/67 (82) 100 02/26/20 08:00 Mechanical Ventilator Mechanical Ventilator 02/26/20 08:00 105 02/26/20 08:00 99.6 105 25 100/67 (78) 100 02/26/20 08:00 40 02/26/20 07:28 99 21 40 02/26/20 07:00 106 25 100/66 (77) 100 02/26/20 06:30 96 21 02/26/20 06:00 100 28 120/82 (95) 100 02/26/20 05:00 101 32 122/82 (95) 100 02/26/20 04:00 40 02/26/20 04:00 98.8 104 31 112/85 (94) 100 02/26/20 04:00 Mechanical Ventilator Mechanical Ventilator 02/26/20 04:00 87 02/26/20 03:38 109 27 40 02/26/20 03:00 101 25 109/72 (84) 100 02/26/20 02:00 89 20 107/83 (91) 100 02/26/20 01:02 100.5 02/26/20 01:00 108 29 113/71 (85) 100 02/26/20 00:00 40 02/26/20 00:00 Mechanical Ventilator Mechanical Ventilator 02/26/20 00:00 116 02/26/20 00:00 111 02/26/20 00:00 102 22 110/72 (85) 100 02/25/20 23:00 110 22 113/72 (86) 100 02/25/20 22:38 112 29 40 02/25/20 22:31 112/72 02/25/20 22:00 111 24 112/72 (85) 100 02/25/20 21:00 113 16 114/65 (81) 100 02/25/20 21:00 112/72 02/25/20 20:00 100.2 111 22 108/67 (81) 100 02/25/20 20:00 105 02/25/20 20:00 Mechanical Ventilator Mechanical Ventilator 02/25/20 19:36 116 26 40 02/25/20 19:00 108 21 1/60 (41) 99 02/25/20 18:00 109 22 103/63 (76) 99 02/25/20 17:30 110 16 100/72 (81) 99 02/25/20 17:09 109 26 102/65 (77) 100 02/25/20 16:00 99.7 106 23 101/76 (84) 100 02/25/20 16:00 Mechanical Ventilator Mechanical Ventilator 02/25/20 16:00 40 02/25/20 16:00 116 02/25/20 15:30 109 26 114/75 (88) 100 02/25/20 15:30 109 30 40 02/25/20 15:00 107 23 105/66 (79) 100 02/25/20 14:30 107 22 100/69 (79) 100 02/25/20 14:00 110 24 102/68 (79) 100 02/25/20 13:30 110 23 110/66 (81) 100 02/25/20 13:00 110 24 103/69 (80) 100 02/25/20 13:00 107 23 102/67 (79) 100 02/25/20 12:30 99.8 109 23 103/63 (76) 100 02/25/20 12:00 40 02/25/20 12:00 Mechanical Ventilator Mechanical Ventilator 02/25/20 12:00 106 02/25/20 12:00 111 02/25/20 12:00 108 22 101/64 (76) 100 Intake and Output 02/25/20 02/26/20 19:00 07:00 Intake Total 200 ml 520 ml Output Total 1245 ml 920 ml Balance -1045 ml -400 ml Intake Free Water 30 ml 60 ml IV Total 100 ml Tube Feeding 170 ml 360 ml Output Urine Total 1245 ml 860 ml Stool Total 50 ml Chest Tube Drainage Total 10 ml Laboratory Tests 02/26/20 04:10: White Blood Count 8.4#, Red Blood Count 2.87L, Hemoglobin 8.8L, Hematocrit 25.3L , Mean Corpuscular Volume 88, Mean Corpuscular Hemoglobin 30.9, Mean Corpuscular Hemoglobin Concent 34.9, Red Cell Distribution Width 11.5L, Platelet Count 48L, Mean Platelet Volume 10.6H, Neutrophils (%) (Auto) , Lymphocytes (%) (Auto) , Monocytes (%) (Auto) , Eosinophils (%) (Auto) , Basophils (%) (Auto) , Differential Total Cells Counted 100, Neutrophils % ( Manual) 60, Lymphocytes % (Manual) 28, Monocytes % (Manual) 2, Eosinophils % ( Manual) 8H, Basophils % (Manual) 2, Band Neutrophils 0, Platelet Estimate DecreasedL, Platelet Morphology Normal, Hypochromasia 2+, Anisocytosis 1+, Spherocytes 2+, Sodium Level 148H, Potassium Level 3.2L, Chloride Level 113H, Carbon Dioxide Level 26, Anion Gap 9, Blood Urea Nitrogen 14, Creatinine 0.9, Estimat Glomerular Filtration Rate > 60, Glucose Level 97, Calcium Level 7.6L, Phosphorus Level 4.0, Magnesium Level 1.5L, Total Bilirubin 0.9, Gamma Glutamyl Transpeptidase 690H, Aspartate Amino Transf (AST/SGOT) 60H, Alanine Aminotransferase (ALT/SGPT) 67, Alkaline Phosphatase 272H, Total Protein 5.4L, Albumin 1.8L, Globulin 3.6, Albumin/Globulin Ratio 0.5L, Phenytoin (Dilantin) Level 3.7L Height (Feet): 5 Height (Inches): 4.00 Weight (Pounds): 152 General Appearance: no apparent distress EENT: other - On mechanical ventilator Cardiovascular: tachycardia Respiratory/Chest: decreased breath sounds Abdomen: distended Objective No change Erich Link MD February 26, 2020 11:48
--- NOTE | 2020-02-26 13:48 | Cardiac Electrophysiology PN ---
Assessment/Plan Assessment/Plan 1. Respiratory failure. Orally intubated on the vent. Fio2 40% and PEEP 5. Fu by Dr. Haile. Terminal extubation vs new trach per sister 2. Paroxysmal atrial fibrillation, off anticoagulation in view of bleeding from the trach site. Converted to SR 3. Left Pneumothorax, status post Left chest tube placement on broad-spectrum IV antibiotic. 4. Septic Shock , now off Levophed 5. Dysphagia, status post PEG placement. Draining by gravity for high residual. 6. Dementia. 7. Hypernatremia on IV fluids. 8. Status post left pneumothorax with chest tube in place. 9. S/P tracheostomy bleeding 10. Chronic encephalopathy. LUIS RN Subjective Subjective In ICU on the vent. Trach is covered Off Levo. Sister still to make decision re terminal extubation vs Re-tracheostomy Objective Last 24 Hour Vital Signs Date Time Temp Pulse Resp B/P (MAP) Pulse Ox O2 Delivery O2 Flow Rate FiO2 02/26/20 12:00 Mechanical Ventilator Mechanical Ventilator 02/26/20 12:00 40 02/26/20 12:00 105 02/26/20 12:00 97.4 105 26 117/76 (90) 100 02/26/20 11:11 108 27 40 02/26/20 11:00 109 28 116/75 (89) 100 02/26/20 10:00 112 32 109/74 (86) 100 02/26/20 09:00 108 25 113/67 (82) 100 02/26/20 08:00 Mechanical Ventilator Mechanical Ventilator 02/26/20 08:00 105 02/26/20 08:00 99.6 105 25 100/67 (78) 100 02/26/20 08:00 40 02/26/20 07:28 99 21 40 02/26/20 07:00 106 25 100/66 (77) 100 02/26/20 06:30 96 21 02/26/20 06:00 100 28 120/82 (95) 100 02/26/20 05:00 101 32 122/82 (95) 100 02/26/20 04:00 40 02/26/20 04:00 98.8 104 31 112/85 (94) 100 02/26/20 04:00 Mechanical Ventilator Mechanical Ventilator 02/26/20 04:00 87 02/26/20 03:38 109 27 40 02/26/20 03:00 101 25 109/72 (84) 100 02/26/20 02:00 89 20 107/83 (91) 100 02/26/20 01:02 100.5 02/26/20 01:00 108 29 113/71 (85) 100 02/26/20 00:00 40 02/26/20 00:00 Mechanical Ventilator Mechanical Ventilator 02/26/20 00:00 116 02/26/20 00:00 111 02/26/20 00:00 102 22 110/72 (85) 100 02/25/20 23:00 110 22 113/72 (86) 100 02/25/20 22:38 112 29 40 02/25/20 22:31 112/72 02/25/20 22:00 111 24 112/72 (85) 100 02/25/20 21:00 113 16 114/65 (81) 100 02/25/20 21:00 112/72 02/25/20 20:00 100.2 111 22 108/67 (81) 100 02/25/20 20:00 105 02/25/20 20:00 Mechanical Ventilator Mechanical Ventilator 02/25/20 19:36 116 26 40 02/25/20 19:00 108 21 1/60 (41) 99 02/25/20 18:00 109 22 103/63 (76) 99 02/25/20 17:30 110 16 100/72 (81) 99 02/25/20 17:09 109 26 102/65 (77) 100 02/25/20 16:00 99.7 106 23 101/76 (84) 100 02/25/20 16:00 Mechanical Ventilator Mechanical Ventilator 02/25/20 16:00 40 02/25/20 16:00 116 02/25/20 15:30 109 26 114/75 (88) 100 02/25/20 15:30 109 30 40 02/25/20 15:00 107 23 105/66 (79) 100 02/25/20 14:30 107 22 100/69 (79) 100 02/25/20 14:00 110 24 102/68 (79) 100 Intake and Output 02/25/20 02/26/20 18:59 06:59 Intake Total 240 ml 450 ml Output Total 1255 ml 960 ml Balance -1015 ml -510 ml Intake Free Water 90 ml IV Total 100 ml Tube Feeding 140 ml 360 ml Output Urine Total 1255 ml 900 ml Stool Total 50 ml Chest Tube Drainage Total 0 ml 10 ml Laboratory Tests Test 02/26/20 04:10 White Blood Count 8.4 K/UL (4.8-10.8) # Red Blood Count 2.87 M/UL (4.20-5.40) L Hemoglobin 8.8 G/DL (12.0-16.0) L Hematocrit 25.3 % (37.0-47.0) L Mean Corpuscular Volume 88 FL (80-99) Mean Corpuscular Hemoglobin 30.9 PG (27.0-31.0) Mean Corpuscular Hemoglobin Concent 34.9 G/DL (32.0-36.0) Red Cell Distribution Width 11.5 % (11.6-14.8) L Platelet Count 48 K/UL (150-450) L Mean Platelet Volume 10.6 FL (6.5-10.1) H Neutrophils (%) (Auto) % (45.0-75.0) Lymphocytes (%) (Auto) % (20.0-45.0) Monocytes (%) (Auto) % (1.0-10.0) Eosinophils (%) (Auto) % (0.0-3.0) Basophils (%) (Auto) % (0.0-2.0) Differential Total Cells Counted 100 Neutrophils % (Manual) 60 % (45-75) Lymphocytes % (Manual) 28 % (20-45) Monocytes % (Manual) 2 % (1-10) Eosinophils % (Manual) 8 % (0-3) H Basophils % (Manual) 2 % (0-2) Band Neutrophils 0 % (0-8) Platelet Estimate Decreased L Platelet Morphology Normal Hypochromasia 2+ Anisocytosis 1+ Spherocytes 2+ Sodium Level 148 MMOL/L (136-145) H Potassium Level 3.2 MMOL/L (3.5-5.1) L Chloride Level 113 MMOL/L (98-107) H Carbon Dioxide Level 26 MMOL/L (21-32) Anion Gap 9 mmol/L (5-15) Blood Urea Nitrogen 14 mg/dL (7-18) Creatinine 0.9 MG/DL (0.55-1.30) Estimat Glomerular Filtration Rate > 60 mL/min (>60) Glucose Level 97 MG/DL (74-106) Calcium Level 7.6 MG/DL (8.5-10.1) L Phosphorus Level 4.0 MG/DL (2.5-4.9) Magnesium Level 1.5 MG/DL (1.8-2.4) L Total Bilirubin 0.9 MG/DL (0.2-1.0) Gamma Glutamyl Transpeptidase 690 U/L (5-85) H Aspartate Amino Transf (AST/SGOT) 60 U/L (15-37) H Alanine Aminotransferase (ALT/SGPT) 67 U/L (12-78) Alkaline Phosphatase 272 U/L (46-116) H Total Protein 5.4 G/DL (6.4-8.2) L Albumin 1.8 G/DL (3.4-5.0) L Globulin 3.6 g/dL Albumin/Globulin Ratio 0.5 (1.0-2.7) L Phenytoin (Dilantin) Level 3.7 ug/mL (10-20) L Microbiology Date/Time Source Procedure Growth Status 02/24/20 13:00 Sputum Gram Stain - Final Resulted 02/24/20 13:00 Sputum Culture - Preliminary Gram Negative Bacillus 1 Resulted 02/23/20 15:00 Sputum Induced Gram Stain - Final Resulted 02/23/20 15:00 Sputum Culture - Preliminary Pseudomonas Aeruginosa Gram Negative Bacillus 2 Resulted Objective HEAD AND NECK: Orally intubated and tracheostomy is covered. LUNGS: Coarse rhonchi. CARDIOVASCULAR: Regular S1 and S2 with no gallop. She has a chest tube. ABDOMEN: Soft. EXTREMITIES: 1+ pitting edema.Contracted Dat Oh MD February 26, 2020 13:48
[2020-02-26] MEDS ORDERED: Sterile Water Irrig 1000ml IRRIG ONE ×2 (14:05→14:14)
[2020-02-26] MEDS: Dyna-Hex 2% Top Sol 2oz TOPIC SCH (20:52)
[2020-02-26] MEDS: DOPamine 400mg/250ml 250 ML IV SCH (20:54)
[2020-02-26] MEDS ORDERED: PHENYTOIN IVPB SCH (21:00)
[2020-02-26] MEDS ORDERED: NS IVPB SCH (21:00)
--- NOTE | 2020-02-26 22:15 | Progress Note ---
DATE: 02/26/2020 SUBJECTIVE: A 49-year-old female came from the shelter for acute respiratory failure. The patient was placed on ventilator. The patient is nonverbal, lethargic, still on Levophed drip. OBJECTIVE: VITAL SIGNS: Blood pressure 110/70, pulse 84, respirations 18, and no fever. CHEST: Bilateral decreased breath sounds. CARDIOVASCULAR: Regular rhythm. No gallop. No murmur. ABDOMEN: Soft and positive bowel sounds. EXTREMITIES: CCE. NEUROLOGICAL: The patient has no focal deficit. ASSESSMENT: 1. Aspiration pneumonia. 2. Chronic and acute respiratory failure. 3. Encephalopathy. 4. Renal insufficiency. 5. Hypokalemia is replaced. PLAN: 1. Continue antibiotic. 2. Continue bronchodilator treatments. 3. Continue weaning protocols and titrate Levophed drip. Discussed with charge nurse. Darin Delgado M.D. DR: MIR JOB#: [id number] CC:
[2020-02-26] MEDS: Norepinephrine Bitartrate 16 MG in D5W 500ml 550 ML IV SCH (23:00)
[2020-02-27] VITALS (24 sets, daily range): BP systolic 82–153; BP diastolic 49–89
[2020-02-27] MEDS: Metoclopramide 10mg/2ml Inj IVP SCH (05:19)
[2020-02-27] MEDS: Meropenem 1gm in NS 55ml IVPB SCH (05:20)
[2020-02-27 05:34] LABS: HEMATOCRIT 22.7 % (37.0-47.0); MEAN CORPUSCULAR VOLUME 88 FL (80-99); PLATELET COUNT 70 K/UL (150-450); RED BLOOD COUNT 2.57 M/UL (4.20-5.40); RED CELL DISTRIBUTION WIDTH 11.6 % (11.6-14.8)
[2020-02-27 06:15] LABS: % IRON SATURATION 27 % (15-50); IRON 40 ug/dL (50-175); TOTAL IRON BINDING CAPACITY 146 ug/dL (250-450)
[2020-02-27 06:16] LABS: ALANINE AMINOTRANSFERASE 48 U/L (12-78); ALBUMIN 1.8 G/DL (3.4-5.0); ALBUMIN/GLOBULIN RATIO 0.6 (1.0-2.7); ALKALINE PHOSPHATASE 222 U/L (46-116); ANION GAP 9 mmol/L (5-15); ASPARTATE AMINO TRANSFERASE 38 U/L (15-37); BILIRUBIN,TOTAL 0.8 MG/DL (0.2-1.0); BLOOD UREA NITROGEN 15 mg/dL (7-18); CALCIUM 7.3 MG/DL (8.5-10.1); CARBON DIOXIDE 27 MMOL/L (21-32); CHLORIDE 107 MMOL/L (98-107); CREATININE 0.7 MG/DL (0.55-1.30); FERRITIN 319 NG/ML (8-388); PHOSPHORUS 2.8 MG/DL (2.5-4.9); POTASSIUM 2.8 MMOL/L (3.5-5.1); SODIUM 144 MMOL/L (136-145)
[2020-02-27] MEDS: levETIRAcetam 500mg/NS100ml 100 ML IVPB SCH ×2 (08:16→20:53)
[2020-02-27] MEDS: Pantoprazole Inj IVP SCH (08:16)
[2020-02-27] MEDS ORDERED: NS 275ml ONE (09:29)
[2020-02-27] MEDS ORDERED: D5W 550ml IV ONE (09:29)
--- NOTE | 2020-02-27 10:19 | Infectious Diseases Prog Note ---
Assessment/Plan Assessment/Plan A 1. pneumonia with Pseudomonas & Stenotrophomonas COVID 19 X 1: negative 2. Ventilatory dependent respiratory failure 3. shock 4. + blood cultures with coag neg staph likely contaminated 5. pneumothorax 6. hypertension 7. 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 change Meropenem to Levaquin , continue Flagyl 2. Stool for C. difficile , repeat COVID19 test 3. continue isolation Subjective ROS Limited/Unobtainable: Yes Constitutional: Reports: fever, other - on cooling banket Allergies: Coded Allergies: PENICILLINS (Verified Allergy, Unknown, 02/14/18) Objective Vital Signs Last 24 Hour Vital Signs Date Time Temp Pulse Resp B/P (MAP) Pulse Ox O2 Delivery O2 Flow Rate FiO2 02/27/20 10:00 100 20 93/53 (66) 98 02/27/20 09:00 100 21 104/59 (74) 100 02/27/20 08:00 Mechanical Ventilator Mechanical Ventilator 02/27/20 08:00 99.8 97 12 98/53 (68) 99 02/27/20 08:00 40 02/27/20 07:17 97 20 40 02/27/20 07:00 91 16 87/51 (63) 99 02/27/20 06:30 102 21 02/27/20 06:00 96 14 90/52 (65) 100 02/27/20 05:00 97 17 82/49 (60) 98 02/27/20 04:00 Mechanical Ventilator Mechanical Ventilator 02/27/20 04:00 99.7 104 20 105/50 (68) 98 02/27/20 04:00 102 02/27/20 04:00 40 02/27/20 03:14 96 26 40 02/27/20 03:00 95 20 93/51 (65) 99 02/27/20 02:00 93 21 96/53 (67) 99 02/27/20 01:00 99 23 94/53 (67) 100 02/27/20 00:00 97.6 96 20 90/53 (65) 99 02/27/20 00:00 Mechanical Ventilator Mechanical Ventilator 02/27/20 00:00 40 02/27/20 00:00 96 02/26/20 23:30 103 28 97/61 (73) 100 02/26/20 23:14 98 28 40 02/26/20 23:00 95 20 79/41 (54) 99 02/26/20 23:00 105/50 02/26/20 22:00 94 21 101/60 (74) 100 02/26/20 21:00 100 22 93/58 (70) 100 02/26/20 20:54 104/69 02/26/20 20:00 100 02/26/20 20:00 Mechanical Ventilator Mechanical Ventilator 02/26/20 20:00 99.2 100 24 100/53 (69) 100 02/26/20 20:00 40 02/26/20 19:24 101 29 40 02/26/20 19:00 105 26 93/58 (70) 100 02/26/20 18:00 88 21 105/68 (80) 100 02/26/20 17:00 79 20 113/68 (83) 100 02/26/20 16:20 99.9 02/26/20 16:00 100.5 99 28 112/67 (82) 100 02/26/20 16:00 99 02/26/20 16:00 Mechanical Ventilator Mechanical Ventilator 02/26/20 16:00 40 02/26/20 15:27 103 30 40 02/26/20 15:00 102 26 108/70 (83) 100 02/26/20 14:00 100.1 109 28 110/67 (81) 100 02/26/20 13:00 100.3 108 30 109/71 (84) 100 02/26/20 12:00 Mechanical Ventilator Mechanical Ventilator 02/26/20 12:00 40 02/26/20 12:00 105 02/26/20 12:00 97.4 105 26 117/76 (90) 100 02/26/20 11:11 108 27 40 02/26/20 11:00 109 28 116/75 (89) 100 Height (Feet): 5 Height (Inches): 4.00 Weight (Pounds): 155 HEENT: other - orally intubated Respiratory/Chest: other - n ventilator Cardiovascular: tachycardia Abdomen: soft, non tender, other - GT feeding Extremities: no edema Neurologic/Psychiatric: unresponsiveness Microbiology Date/Time Source Procedure Growth Status 02/24/20 13:00 Sputum Gram Stain - Final Resulted 02/24/20 13:00 Sputum Culture - Preliminary Gram Negative Bacillus 1 Stenotrophomonas Maltophilia Resulted Laboratory Tests Test 02/27/20 04:00 White Blood Count 10.0 K/UL (4.8-10.8) Red Blood Count 2.57 M/UL (4.20-5.40) L Hemoglobin 8.0 G/DL (12.0-16.0) L Hematocrit 22.7 % (37.0-47.0) L Mean Corpuscular Volume 88 FL (80-99) Mean Corpuscular Hemoglobin 31.1 PG (27.0-31.0) H Mean Corpuscular Hemoglobin Concent 35.2 G/DL (32.0-36.0) Red Cell Distribution Width 11.6 % (11.6-14.8) Platelet Count 70 K/UL (150-450) L Mean Platelet Volume 12.8 FL (6.5-10.1) H Neutrophils (%) (Auto) % (45.0-75.0) Lymphocytes (%) (Auto) % (20.0-45.0) Monocytes (%) (Auto) % (1.0-10.0) Eosinophils (%) (Auto) % (0.0-3.0) Basophils (%) (Auto) % (0.0-2.0) Differential Total Cells Counted 100 Neutrophils % (Manual) 50 % (45-75) Lymphocytes % (Manual) 39 % (20-45) Monocytes % (Manual) 9 % (1-10) Eosinophils % (Manual) 2 % (0-3) Basophils % (Manual) 0 % (0-2) Band Neutrophils 0 % (0-8) Platelet Estimate Decreased L Platelet Morphology Normal Hypochromasia 2+ Anisocytosis 1+ Sodium Level 144 MMOL/L (136-145) Potassium Level 2.8 MMOL/L (3.5-5.1) L Chloride Level 107 MMOL/L (98-107) Carbon Dioxide Level 27 MMOL/L (21-32) Anion Gap 9 mmol/L (5-15) Blood Urea Nitrogen 15 mg/dL (7-18) Creatinine 0.7 MG/DL (0.55-1.30) Estimat Glomerular Filtration Rate > 60 mL/min (>60) Glucose Level 123 MG/DL (74-106) H Calcium Level 7.3 MG/DL (8.5-10.1) L Phosphorus Level 2.8 MG/DL (2.5-4.9) Magnesium Level 2.1 MG/DL (1.8-2.4) Iron Level 40 ug/dL (50-175) L Total Iron Binding Capacity 146 ug/dL (250-450) L Percent Iron Saturation 27 % (15-50) Unsaturated Iron Binding 106 ug/dL (112-346) L Ferritin 319 NG/ML (8-388) Total Bilirubin 0.8 MG/DL (0.2-1.0) Aspartate Amino Transf (AST/SGOT) 38 U/L (15-37) H Alanine Aminotransferase (ALT/SGPT) 48 U/L (12-78) Alkaline Phosphatase 222 U/L (46-116) H C-Reactive Protein, Quantitative 7.6 mg/dL (0.00-0.90) H Total Protein 4.8 G/DL (6.4-8.2) L Albumin 1.8 G/DL (3.4-5.0) L Globulin 3.0 g/dL Albumin/Globulin Ratio 0.6 (1.0-2.7) L Vitamin B12 Level > 2000 PG/ML (193-986) H Folate 17.8 NG/ML (8.6-58.9) Current Medications Medications (Trade) Dose Ordered Sig/Bere Route PRN Reason Start Time Stop Time Status Last Admin Dose Admin Acetaminophen (Tylenol) 650 mg Q4H PRN GT Temp >100.5 02/19/20 22:00 03/20/20 21:59 02/26/20 15:50 Chlorhexidine Gluconate (Jane-Hex 2%) 1 applic DAILY@2000 TOPIC 02/20/20 20:00 05/20/20 19:59 02/26/20 20:52 Dopamine HCl/ Dextrose 250 ml @ 0 mls/hr Q24H IV 02/19/20 21:00 05/19/20 20:59 02/21/20 03:10 Levetiracetam 100 ml @ 400 mls/hr Q12HR IVPB 02/20/20 09:00 05/20/20 08:59 02/27/20 08:16 Meropenem 1 gm/ Sodium Chloride 55 ml @ 110 mls/hr Q8HR IVPB 02/19/20 22:00 02/28/20 21:59 02/27/20 05:20 Metoclopramide HCl (Reglan) 10 mg Q8HR IVP 02/24/20 10:23 03/25/20 10:22 02/27/20 05:19 Metronidazole 100 ml @ 100 mls/hr Q8HR IVPB 02/24/20 14:00 03/02/20 13:59 02/27/20 05:20 Midodrine (Pro-Amatine) 10 mg Q8HR GT 02/27/20 14:00 05/25/20 13:59 Morphine Sulfate (Morphine Sulfate) 2 mg Q4H PRN IVP For Pain 02/23/20 12:15 03/01/20 12:14 Norepinephrine Bitartrate 16 mg/ Dextrose 566 ml @ 0 mls/hr Q24H IV 02/22/20 23:00 03/23/20 22:59 02/24/20 00:12 Pantoprazole (Protonix) 40 mg Q12HR IVP 02/24/20 21:00 03/21/20 08:59 02/27/20 08:16 Phenytoin (Dilantin) 150 mg Q12H IVP 02/26/20 21:00 03/27/20 20:59 02/27/20 08:15 Potassium Chloride 100 ml @ 50 mls/hr Q3HR IVPB 02/27/20 09:00 02/27/20 16:59 02/27/20 09:16 Potassium Chloride (K-Dur) 20 meq BID GT 02/27/20 18:00 05/24/20 17:59 Prabhakar Guaman MD February 27, 2020 10:19
[2020-02-27] MEDS: Levofloxacin 750mg tab GT SCH (10:33)
--- NOTE | 2020-02-27 10:46 | Nephrology Progress Note ---
Assessment/Plan Problem List: (1) Electrolyte imbalance (2) Elevated liver enzymes (3) Respiratory failure (4) Hypoalbuminemia (5) Proteinuria (6) Leukocytosis Assessment HypoKalemia Proteinuria, hypoalbuminemia, BUN and creatinine within normal range Chronic respiratory failure Status post left pneumothorax with chest tube in place Transaminitis Leukocytosis Sepsis, bacteremia with gram-positive cocci Anoxic encephalopathy Seizure disorder Penicillin allergy Hypertension Plan February 26: Potassium is low again most likely due to diarrhea Will stop IV Reglan Will order stool for C. difficile Continue adjusting Dilantin level and continue on Midodrin Discussed with RN February 25: More potassium and magnesium supplement today Increase GT feeding Adjust Dilantin dose Increase midodrine Continue to monitor her electrolytes and renal parameters Discussed with RN Per orders February 24: Today's lab results noted. Serum potassium now within acceptable range GT tube is now clamped will start GT feeding. Continue IV Reglan. DC IV fluid and IV Lasix. Monitor electrolytes and renal parameters. Midodrine through GT tube for blood pressure below 100 systolic Discussed with RN February 23: We will clamp the GT and disconnected from suction Increase Protonix to every 12 hours IV IV Reglan 100 mEq of KCl intravenously Continue to monitor electrolytes Discussed with RN February 22: Low potassium is replaced intravenously and via GT Stool for C. difficile sent Will monitor electrolytes Continue per consultants regarding normalizing LFTs and underlying sepsis February 21: Leukocytosis worsened, Blood pressure borderline low LFTs remain elevated Abnormal magnesium potassium and phosphorus on the can panel Supplements for potassium magnesium and phosphorus ordered and continue as needed Continue to check calcium and phosphorus and liver function tests Continue per ID and pulmonary Keep the blood pressure and blood sugar in check Per orders Subjective ROS Limited/Unobtainable: Yes Objective Objective Last 24 Hour Vital Signs Date Time Temp Pulse Resp B/P (MAP) Pulse Ox O2 Delivery O2 Flow Rate FiO2 02/27/20 10:00 100 20 93/53 (66) 98 02/27/20 09:00 100 21 104/59 (74) 100 02/27/20 08:00 Mechanical Ventilator Mechanical Ventilator 02/27/20 08:00 99.8 97 12 98/53 (68) 99 02/27/20 08:00 97 02/27/20 08:00 40 02/27/20 07:17 97 20 40 02/27/20 07:00 91 16 87/51 (63) 99 02/27/20 06:30 102 21 02/27/20 06:00 96 14 90/52 (65) 100 02/27/20 05:00 97 17 82/49 (60) 98 02/27/20 04:00 Mechanical Ventilator Mechanical Ventilator 02/27/20 04:00 99.7 104 20 105/50 (68) 98 02/27/20 04:00 102 02/27/20 04:00 40 02/27/20 03:14 96 26 40 02/27/20 03:00 95 20 93/51 (65) 99 02/27/20 02:00 93 21 96/53 (67) 99 02/27/20 01:00 99 23 94/53 (67) 100 02/27/20 00:00 97.6 96 20 90/53 (65) 99 02/27/20 00:00 Mechanical Ventilator Mechanical Ventilator 02/27/20 00:00 40 02/27/20 00:00 96 02/26/20 23:30 103 28 97/61 (73) 100 02/26/20 23:14 98 28 40 02/26/20 23:00 95 20 79/41 (54) 99 02/26/20 23:00 105/50 02/26/20 22:00 94 21 101/60 (74) 100 02/26/20 21:00 100 22 93/58 (70) 100 02/26/20 20:54 104/69 02/26/20 20:00 100 02/26/20 20:00 Mechanical Ventilator Mechanical Ventilator 02/26/20 20:00 99.2 100 24 100/53 (69) 100 02/26/20 20:00 40 02/26/20 19:24 101 29 40 02/26/20 19:00 105 26 93/58 (70) 100 02/26/20 18:00 88 21 105/68 (80) 100 02/26/20 17:00 79 20 113/68 (83) 100 02/26/20 16:20 99.9 02/26/20 16:00 100.5 99 28 112/67 (82) 100 02/26/20 16:00 99 02/26/20 16:00 Mechanical Ventilator Mechanical Ventilator 02/26/20 16:00 40 02/26/20 15:27 103 30 40 02/26/20 15:00 102 26 108/70 (83) 100 02/26/20 14:00 100.1 109 28 110/67 (81) 100 02/26/20 13:00 100.3 108 30 109/71 (84) 100 02/26/20 12:00 Mechanical Ventilator Mechanical Ventilator 02/26/20 12:00 40 02/26/20 12:00 105 02/26/20 12:00 97.4 105 26 117/76 (90) 100 02/26/20 11:11 108 27 40 02/26/20 11:00 109 28 116/75 (89) 100 Intake and Output 02/26/20 02/27/20 19:00 07:00 Intake Total 1392 ml 785 ml Output Total 1825 ml 1080 ml Balance -433 ml -295 ml Intake Free Water 60 ml 50 ml IV Total 912 ml 255 ml Tube Feeding 420 ml 480 ml Output Urine Total 1625 ml 880 ml Stool Total 200 ml 200 ml Laboratory Tests 02/27/20 04:00: White Blood Count 10.0, Red Blood Count 2.57L, Hemoglobin 8.0L, Hematocrit 22.7L , Mean Corpuscular Volume 88, Mean Corpuscular Hemoglobin 31.1H, Mean Corpuscular Hemoglobin Concent 35.2, Red Cell Distribution Width 11.6, Platelet Count 70L, Mean Platelet Volume 12.8H, Neutrophils (%) (Auto) , Lymphocytes (%) (Auto) , Monocytes (%) (Auto) , Eosinophils (%) (Auto) , Basophils (%) (Auto) , Differential Total Cells Counted 100, Neutrophils % (Manual) 50, Lymphocytes % ( Manual) 39, Monocytes % (Manual) 9, Eosinophils % (Manual) 2, Basophils % ( Manual) 0, Band Neutrophils 0, Platelet Estimate DecreasedL, Platelet Morphology Normal, Hypochromasia 2+, Anisocytosis 1+, Sodium Level 144, Potassium Level 2.8L, Chloride Level 107, Carbon Dioxide Level 27, Anion Gap 9, Blood Urea Nitrogen 15, Creatinine 0.7, Estimat Glomerular Filtration Rate > 60 , Glucose Level 123H, Calcium Level 7.3L, Phosphorus Level 2.8, Magnesium Level 2.1, Iron Level 40L, Total Iron Binding Capacity 146L, Percent Iron Saturation 27, Unsaturated Iron Binding 106L, Ferritin 319, Total Bilirubin 0.8, Aspartate Amino Transf (AST/SGOT) 38H, Alanine Aminotransferase (ALT/SGPT) 48, Alkaline Phosphatase 222H, C-Reactive Protein, Quantitative 7.6H, Total Protein 4.8L, Albumin 1.8L, Globulin 3.0, Albumin/Globulin Ratio 0.6L, Vitamin B12 Level > 2000H, Folate 17.8 Height (Feet): 5 Height (Inches): 4.00 Weight (Pounds): 155 General Appearance: no apparent distress EENT: other - Remains on ventilator Cardiovascular: tachycardia Respiratory/Chest: decreased breath sounds Abdomen: distended Objective No change Erich Link MD February 27, 2020 10:46
--- NOTE | 2020-02-27 10:58 | Pulmonology Progress Note ---
Subjective ROS Limited/Unobtainable: Yes Interval Events: None new; remains intubated Constitutional: Reports: fever, other - on cooling banket HEENT: Repors: no symptoms Respiratory: Reports: no symptoms Cardiovascular: Reports: no symptoms Gastrointestinal/Abdominal: Reports: diarrhea Allergies: Coded Allergies: PENICILLINS (Verified Allergy, Unknown, 02/14/18) Objective Last 24 Hour Vital Signs Date Time Temp Pulse Resp B/P (MAP) Pulse Ox O2 Delivery O2 Flow Rate FiO2 02/27/20 10:00 100 20 93/53 (66) 98 02/27/20 09:00 100 21 104/59 (74) 100 02/27/20 08:00 Mechanical Ventilator Mechanical Ventilator 02/27/20 08:00 99.8 97 12 98/53 (68) 99 02/27/20 08:00 97 02/27/20 08:00 40 02/27/20 07:17 97 20 40 02/27/20 07:00 91 16 87/51 (63) 99 02/27/20 06:30 102 21 02/27/20 06:00 96 14 90/52 (65) 100 02/27/20 05:00 97 17 82/49 (60) 98 02/27/20 04:00 Mechanical Ventilator Mechanical Ventilator 02/27/20 04:00 99.7 104 20 105/50 (68) 98 02/27/20 04:00 102 02/27/20 04:00 40 02/27/20 03:14 96 26 40 02/27/20 03:00 95 20 93/51 (65) 99 02/27/20 02:00 93 21 96/53 (67) 99 02/27/20 01:00 99 23 94/53 (67) 100 02/27/20 00:00 97.6 96 20 90/53 (65) 99 02/27/20 00:00 Mechanical Ventilator Mechanical Ventilator 02/27/20 00:00 40 02/27/20 00:00 96 02/26/20 23:30 103 28 97/61 (73) 100 02/26/20 23:14 98 28 40 02/26/20 23:00 95 20 79/41 (54) 99 02/26/20 23:00 105/50 02/26/20 22:00 94 21 101/60 (74) 100 02/26/20 21:00 100 22 93/58 (70) 100 02/26/20 20:54 104/69 02/26/20 20:00 100 02/26/20 20:00 Mechanical Ventilator Mechanical Ventilator 02/26/20 20:00 99.2 100 24 100/53 (69) 100 02/26/20 20:00 40 02/26/20 19:24 101 29 40 02/26/20 19:00 105 26 93/58 (70) 100 02/26/20 18:00 88 21 105/68 (80) 100 02/26/20 17:00 79 20 113/68 (83) 100 02/26/20 16:20 99.9 02/26/20 16:00 100.5 99 28 112/67 (82) 100 02/26/20 16:00 99 02/26/20 16:00 Mechanical Ventilator Mechanical Ventilator 02/26/20 16:00 40 02/26/20 15:27 103 30 40 02/26/20 15:00 102 26 108/70 (83) 100 02/26/20 14:00 100.1 109 28 110/67 (81) 100 02/26/20 13:00 100.3 108 30 109/71 (84) 100 02/26/20 12:00 Mechanical Ventilator Mechanical Ventilator 02/26/20 12:00 40 02/26/20 12:00 105 02/26/20 12:00 97.4 105 26 117/76 (90) 100 02/26/20 11:11 108 27 40 02/26/20 11:00 109 28 116/75 (89) 100 Intake and Output 02/26/20 02/27/20 19:00 07:00 Intake Total 1392 ml 785 ml Output Total 1825 ml 1080 ml Balance -433 ml -295 ml Intake Free Water 60 ml 50 ml IV Total 912 ml 255 ml Tube Feeding 420 ml 480 ml Output Urine Total 1625 ml 880 ml Stool Total 200 ml 200 ml General Appearance: no acute distress HEENT: normocephalic Respiratory: chest wall non-tender, lungs clear Cardiovascular: normal peripheral pulses Abdomen: normal bowel sounds Microbiology Date/Time Source Procedure Growth Status 02/24/20 13:00 Sputum Gram Stain - Final Resulted 02/24/20 13:00 Sputum Culture - Preliminary Gram Negative Bacillus 1 Stenotrophomonas Maltophilia Resulted Laboratory Tests 02/27/20 04:00: White Blood Count 10.0, Red Blood Count 2.57L, Hemoglobin 8.0L, Hematocrit 22.7L , Mean Corpuscular Volume 88, Mean Corpuscular Hemoglobin 31.1H, Mean Corpuscular Hemoglobin Concent 35.2, Red Cell Distribution Width 11.6, Platelet Count 70L, Mean Platelet Volume 12.8H, Neutrophils (%) (Auto) , Lymphocytes (%) (Auto) , Monocytes (%) (Auto) , Eosinophils (%) (Auto) , Basophils (%) (Auto) , Differential Total Cells Counted 100, Neutrophils % (Manual) 50, Lymphocytes % ( Manual) 39, Monocytes % (Manual) 9, Eosinophils % (Manual) 2, Basophils % ( Manual) 0, Band Neutrophils 0, Platelet Estimate DecreasedL, Platelet Morphology Normal, Hypochromasia 2+, Anisocytosis 1+, Sodium Level 144, Potassium Level 2.8L, Chloride Level 107, Carbon Dioxide Level 27, Anion Gap 9, Blood Urea Nitrogen 15, Creatinine 0.7, Estimat Glomerular Filtration Rate > 60 , Glucose Level 123H, Calcium Level 7.3L, Phosphorus Level 2.8, Magnesium Level 2.1, Iron Level 40L, Total Iron Binding Capacity 146L, Percent Iron Saturation 27, Unsaturated Iron Binding 106L, Ferritin 319, Total Bilirubin 0.8, Aspartate Amino Transf (AST/SGOT) 38H, Alanine Aminotransferase (ALT/SGPT) 48, Alkaline Phosphatase 222H, C-Reactive Protein, Quantitative 7.6H, Total Protein 4.8L, Albumin 1.8L, Globulin 3.0, Albumin/Globulin Ratio 0.6L, Vitamin B12 Level > 2000H, Folate 17.8 Current Medications Medications (Trade) Dose Ordered Sig/Bere Route PRN Reason Start Time Stop Time Status Last Admin Dose Admin Acetaminophen (Tylenol) 650 mg Q4H PRN GT Temp >100.5 02/19/20 22:00 03/20/20 21:59 02/26/20 15:50 Chlorhexidine Gluconate (Jane-Hex 2%) 1 applic DAILY@2000 TOPIC 02/20/20 20:00 05/20/20 19:59 02/26/20 20:52 Dopamine HCl/ Dextrose 250 ml @ 0 mls/hr Q24H IV 02/19/20 21:00 05/19/20 20:59 02/21/20 03:10 Famotidine (Pepcid) 20 mg BID GT 02/27/20 18:00 05/27/20 17:59 Levetiracetam 100 ml @ 400 mls/hr Q12HR IVPB 02/20/20 09:00 05/20/20 08:59 02/27/20 08:16 Levofloxacin (Levaquin) 750 mg DAILY GT 02/27/20 10:15 03/05/20 10:14 02/27/20 10:33 Metronidazole (Flagyl) 500 mg Q8HR GT 02/27/20 14:00 03/05/20 13:59 Midodrine (Pro-Amatine) 10 mg Q8HR GT 02/27/20 14:00 05/25/20 13:59 Morphine Sulfate (Morphine Sulfate) 2 mg Q4H PRN IVP For Pain 02/23/20 12:15 03/01/20 12:14 Norepinephrine Bitartrate 16 mg/ Dextrose 566 ml @ 0 mls/hr Q24H IV 02/22/20 23:00 03/23/20 22:59 02/24/20 00:12 Phenytoin (Dilantin) 150 mg Q12H IVP 02/26/20 21:00 03/27/20 20:59 02/27/20 08:15 Potassium Chloride 100 ml @ 50 mls/hr Q3HR IVPB 02/27/20 09:00 02/27/20 16:59 02/27/20 09:16 Potassium Chloride (K-Dur) 20 meq BID GT 02/27/20 18:00 05/24/20 17:59 Assessment/Plan Assessment/Plan IMPRESSION: 1. Status post left pneumothorax with chest tube in place. 2. Tracheal bleeding, status post removal. 3. Respiratory failure, status post orotracheal intubation. 4. Transaminitis. 5. Leukocytosis. 6. Chronic encephalopathy. 7. Chronic respiratory failure. DISCUSSION: Continue assist-control mechanical ventilation. I will decrease PEEP as much as possible. Keep chest tube to suction. Broad-spectrum antibiotics. Enteral feedings. Continue medications. Follow carefully. Seen by surgery; will need trach revision Surgery notes reviewed; family discussion noted Family reportedly considering terminal extubation Will monitor Tarun Ellis Omar Syed MD February 27, 2020 10:58
--- NOTE | 2020-02-27 13:36 | Surgery Progress Note ---
Surgery Progress Note Subjective Additional Comments leukocytosis resolved anemia stable ill appearing on support weaning pending family decision Objective Last 24 Hour Vital Signs Date Time Temp Pulse Resp B/P (MAP) Pulse Ox O2 Delivery O2 Flow Rate FiO2 02/27/20 12:00 97 02/27/20 12:00 Mechanical Ventilator Mechanical Ventilator 02/27/20 12:00 99.6 104 20 108/52 (70) 100 02/27/20 12:00 40 02/27/20 11:04 97 21 40 02/27/20 11:00 96 20 96/53 (67) 99 02/27/20 10:00 100 20 93/53 (66) 98 02/27/20 09:00 100 21 104/59 (74) 100 02/27/20 08:00 Mechanical Ventilator Mechanical Ventilator 02/27/20 08:00 99.8 97 12 98/53 (68) 99 02/27/20 08:00 97 02/27/20 08:00 40 02/27/20 07:17 97 20 40 02/27/20 07:00 91 16 87/51 (63) 99 02/27/20 06:30 102 21 02/27/20 06:00 96 14 90/52 (65) 100 02/27/20 05:00 97 17 82/49 (60) 98 02/27/20 04:00 Mechanical Ventilator Mechanical Ventilator 02/27/20 04:00 99.7 104 20 105/50 (68) 98 02/27/20 04:00 102 02/27/20 04:00 40 02/27/20 03:14 96 26 40 02/27/20 03:00 95 20 93/51 (65) 99 02/27/20 02:00 93 21 96/53 (67) 99 02/27/20 01:00 99 23 94/53 (67) 100 02/27/20 00:00 97.6 96 20 90/53 (65) 99 02/27/20 00:00 Mechanical Ventilator Mechanical Ventilator 02/27/20 00:00 40 02/27/20 00:00 96 02/26/20 23:30 103 28 97/61 (73) 100 02/26/20 23:14 98 28 40 02/26/20 23:00 95 20 79/41 (54) 99 02/26/20 23:00 105/50 02/26/20 22:00 94 21 101/60 (74) 100 02/26/20 21:00 100 22 93/58 (70) 100 02/26/20 20:54 104/69 02/26/20 20:00 100 02/26/20 20:00 Mechanical Ventilator Mechanical Ventilator 02/26/20 20:00 99.2 100 24 100/53 (69) 100 02/26/20 20:00 40 02/26/20 19:24 101 29 40 02/26/20 19:00 105 26 93/58 (70) 100 02/26/20 18:00 88 21 105/68 (80) 100 02/26/20 17:00 79 20 113/68 (83) 100 02/26/20 16:20 99.9 02/26/20 16:00 100.5 99 28 112/67 (82) 100 02/26/20 16:00 99 02/26/20 16:00 Mechanical Ventilator Mechanical Ventilator 02/26/20 16:00 40 02/26/20 15:27 103 30 40 02/26/20 15:00 102 26 108/70 (83) 100 02/26/20 14:00 100.1 109 28 110/67 (81) 100 I&O Intake and Output 02/26/20 02/27/20 19:00 07:00 Intake Total 1392 ml 785 ml Output Total 1825 ml 1080 ml Balance -433 ml -295 ml Intake Free Water 60 ml 50 ml IV Total 912 ml 255 ml Tube Feeding 420 ml 480 ml Output Urine Total 1625 ml 880 ml Stool Total 200 ml 200 ml Dressing: other Wound: other Drains: other Cardiovascular: RSR Respiratory: decreased breath sounds Abdomen: soft, non-tender, present bowel sounds Extremities: no cyanosis Laboratory Tests Test 02/27/20 04:00 White Blood Count 10.0 K/UL (4.8-10.8) Red Blood Count 2.57 M/UL (4.20-5.40) L Hemoglobin 8.0 G/DL (12.0-16.0) L Hematocrit 22.7 % (37.0-47.0) L Mean Corpuscular Volume 88 FL (80-99) Mean Corpuscular Hemoglobin 31.1 PG (27.0-31.0) H Mean Corpuscular Hemoglobin Concent 35.2 G/DL (32.0-36.0) Red Cell Distribution Width 11.6 % (11.6-14.8) Platelet Count 70 K/UL (150-450) L Mean Platelet Volume 12.8 FL (6.5-10.1) H Neutrophils (%) (Auto) % (45.0-75.0) Lymphocytes (%) (Auto) % (20.0-45.0) Monocytes (%) (Auto) % (1.0-10.0) Eosinophils (%) (Auto) % (0.0-3.0) Basophils (%) (Auto) % (0.0-2.0) Differential Total Cells Counted 100 Neutrophils % (Manual) 50 % (45-75) Lymphocytes % (Manual) 39 % (20-45) Monocytes % (Manual) 9 % (1-10) Eosinophils % (Manual) 2 % (0-3) Basophils % (Manual) 0 % (0-2) Band Neutrophils 0 % (0-8) Platelet Estimate Decreased L Platelet Morphology Normal Hypochromasia 2+ Anisocytosis 1+ Sodium Level 144 MMOL/L (136-145) Potassium Level 2.8 MMOL/L (3.5-5.1) L Chloride Level 107 MMOL/L (98-107) Carbon Dioxide Level 27 MMOL/L (21-32) Anion Gap 9 mmol/L (5-15) Blood Urea Nitrogen 15 mg/dL (7-18) Creatinine 0.7 MG/DL (0.55-1.30) Estimat Glomerular Filtration Rate > 60 mL/min (>60) Glucose Level 123 MG/DL (74-106) H Calcium Level 7.3 MG/DL (8.5-10.1) L Phosphorus Level 2.8 MG/DL (2.5-4.9) Magnesium Level 2.1 MG/DL (1.8-2.4) Iron Level 40 ug/dL (50-175) L Total Iron Binding Capacity 146 ug/dL (250-450) L Percent Iron Saturation 27 % (15-50) Unsaturated Iron Binding 106 ug/dL (112-346) L Ferritin 319 NG/ML (8-388) Total Bilirubin 0.8 MG/DL (0.2-1.0) Aspartate Amino Transf (AST/SGOT) 38 U/L (15-37) H Alanine Aminotransferase (ALT/SGPT) 48 U/L (12-78) Alkaline Phosphatase 222 U/L (46-116) H C-Reactive Protein, Quantitative 7.6 mg/dL (0.00-0.90) H Total Protein 4.8 G/DL (6.4-8.2) L Albumin 1.8 G/DL (3.4-5.0) L Globulin 3.0 g/dL Albumin/Globulin Ratio 0.6 (1.0-2.7) L Vitamin B12 Level > 2000 PG/ML (193-986) H Folate 17.8 NG/ML (8.6-58.9) Plan Problems: (1) Pneumothorax Assessment & Plan: cont chest tube to water seal am cxr will monitor 1. Left-sided pneumothorax, approximately 50% by volume. 2. Extensive subcutaneous emphysema throughout the chest wall and neck soft tissues bilaterally. s/p chest tube Lungs: Persistent mild increased interstitial markings. The lungs are otherwise clear without focal consolidation. Pleural space: Interval significant improvement of the left-sided pneumothorax, no longer well seen. Heart: Unremarkable. No cardiomegaly. Mediastinum: Unremarkable. Bones/joints: Unremarkable. Soft tissues: Persistent but improved subcutaneous emphysema in the chest reed and neck soft tissues bilaterally. Tubes, lines and devices: Left-sided chest tube in place, with expected positioning. Endotracheal tube tip 3.2 cm above the emerita. Telemetry leads overlie the thorax. IMPRESSION: 1. Left-sided chest tube in place, with expected positioning. 2. Interval significant improvement of the left-sided pneumothorax, which is no longer well seen. 3. Persistent mild increased interstitial markings. This is nonspecific but may suggest mild interstitial edema or a mild pneumonitis. No focal consolidation. 4. Improved subcutaneous emphysema in the chest reed and neck soft tissues bilaterally. (2) Respiratory arrest Assessment & Plan: TRACH REMOVED, SITE BLEEDING. LT CHEST TUNE TO SUCTION. FEMORAL ACCESS will plan for trach new when stable (3) Respiratory distress (4) Tracheostomy complication Assessment & Plan: trach complication intubated on support will need to revise trach once stable thank you Hold on trach revision his family is considering terminal extubation At withdrawal of care JesusAnt February 27, 2020 13:36
[2020-02-27] MEDS: Midodrine 10mg tab GT SCH ×2 (14:12→22:22)
[2020-02-27] MEDS: metroNIDAZOLE 500mg tab GT SCH ×2 (14:12→22:22)
--- NOTE | 2020-02-27 16:56 | Cardiac Electrophysiology PN ---
Assessment/Plan Assessment/Plan 1. Respiratory failure. Orally intubated on the vent. Fio2 40% and PEEP 5. Fu by Dr. Haile. Terminal extubation vs new trach per sister 2. Paroxysmal atrial fibrillation, off anticoagulation in view of bleeding from the trach site. Converted to SR 3. Left Pneumothorax, status post Left chest tube placement to water seal on antibiotic. 4. Septic Shock , now off Levophed 5. Dysphagia, status post PEG placement. 6. Dementia. 7. Hypernatremia on IV fluids. 8. Chronic encephalopathy. DW RN Subjective Subjective In ICU on the vent and off pressors. Trach is covered. Sister l to make decision re terminal extubation vs Re-tracheostomy Objective Last 24 Hour Vital Signs Date Time Temp Pulse Resp B/P (MAP) Pulse Ox O2 Delivery O2 Flow Rate FiO2 02/27/20 16:00 40 02/27/20 16:00 89 02/27/20 16:00 Mechanical Ventilator Mechanical Ventilator 02/27/20 16:00 83 12 110/57 (74) 100 02/27/20 15:24 85 20 40 02/27/20 15:00 87 20 103/56 (72) 99 02/27/20 14:00 99.5 103 19 98/61 (73) 100 02/27/20 13:00 100 20 99/57 (71) 100 02/27/20 12:00 97 02/27/20 12:00 Mechanical Ventilator Mechanical Ventilator 02/27/20 12:00 99.6 104 20 108/52 (70) 100 02/27/20 12:00 40 02/27/20 11:04 97 21 40 02/27/20 11:00 96 20 96/53 (67) 99 02/27/20 10:00 100 20 93/53 (66) 98 02/27/20 09:00 100 21 104/59 (74) 100 02/27/20 08:00 Mechanical Ventilator Mechanical Ventilator 02/27/20 08:00 99.8 97 12 98/53 (68) 99 02/27/20 08:00 97 02/27/20 08:00 40 02/27/20 07:17 97 20 40 02/27/20 07:00 91 16 87/51 (63) 99 02/27/20 06:30 102 21 02/27/20 06:00 96 14 90/52 (65) 100 02/27/20 05:00 97 17 82/49 (60) 98 02/27/20 04:00 Mechanical Ventilator Mechanical Ventilator 02/27/20 04:00 99.7 104 20 105/50 (68) 98 02/27/20 04:00 102 02/27/20 04:00 40 02/27/20 03:14 96 26 40 02/27/20 03:00 95 20 93/51 (65) 99 02/27/20 02:00 93 21 96/53 (67) 99 02/27/20 01:00 99 23 94/53 (67) 100 02/27/20 00:00 97.6 96 20 90/53 (65) 99 02/27/20 00:00 Mechanical Ventilator Mechanical Ventilator 02/27/20 00:00 40 02/27/20 00:00 96 02/26/20 23:30 103 28 97/61 (73) 100 02/26/20 23:14 98 28 40 02/26/20 23:00 95 20 79/41 (54) 99 02/26/20 23:00 105/50 02/26/20 22:00 94 21 101/60 (74) 100 02/26/20 21:00 100 22 93/58 (70) 100 02/26/20 20:54 104/69 02/26/20 20:00 100 02/26/20 20:00 Mechanical Ventilator Mechanical Ventilator 02/26/20 20:00 99.2 100 24 100/53 (69) 100 02/26/20 20:00 40 02/26/20 19:24 101 29 40 02/26/20 19:00 105 26 93/58 (70) 100 02/26/20 18:00 88 21 105/68 (80) 100 02/26/20 17:00 79 20 113/68 (83) 100 Intake and Output 02/26/20 02/27/20 19:00 07:00 Intake Total 1392 ml 785 ml Output Total 1825 ml 1080 ml Balance -433 ml -295 ml Intake Free Water 60 ml 50 ml IV Total 912 ml 255 ml Tube Feeding 420 ml 480 ml Output Urine Total 1625 ml 880 ml Stool Total 200 ml 200 ml Laboratory Tests Test 02/27/20 04:00 White Blood Count 10.0 K/UL (4.8-10.8) Red Blood Count 2.57 M/UL (4.20-5.40) L Hemoglobin 8.0 G/DL (12.0-16.0) L Hematocrit 22.7 % (37.0-47.0) L Mean Corpuscular Volume 88 FL (80-99) Mean Corpuscular Hemoglobin 31.1 PG (27.0-31.0) H Mean Corpuscular Hemoglobin Concent 35.2 G/DL (32.0-36.0) Red Cell Distribution Width 11.6 % (11.6-14.8) Platelet Count 70 K/UL (150-450) L Mean Platelet Volume 12.8 FL (6.5-10.1) H Neutrophils (%) (Auto) % (45.0-75.0) Lymphocytes (%) (Auto) % (20.0-45.0) Monocytes (%) (Auto) % (1.0-10.0) Eosinophils (%) (Auto) % (0.0-3.0) Basophils (%) (Auto) % (0.0-2.0) Differential Total Cells Counted 100 Neutrophils % (Manual) 50 % (45-75) Lymphocytes % (Manual) 39 % (20-45) Monocytes % (Manual) 9 % (1-10) Eosinophils % (Manual) 2 % (0-3) Basophils % (Manual) 0 % (0-2) Band Neutrophils 0 % (0-8) Platelet Estimate Decreased L Platelet Morphology Normal Hypochromasia 2+ Anisocytosis 1+ Sodium Level 144 MMOL/L (136-145) Potassium Level 2.8 MMOL/L (3.5-5.1) L Chloride Level 107 MMOL/L (98-107) Carbon Dioxide Level 27 MMOL/L (21-32) Anion Gap 9 mmol/L (5-15) Blood Urea Nitrogen 15 mg/dL (7-18) Creatinine 0.7 MG/DL (0.55-1.30) Estimat Glomerular Filtration Rate > 60 mL/min (>60) Glucose Level 123 MG/DL (74-106) H Calcium Level 7.3 MG/DL (8.5-10.1) L Phosphorus Level 2.8 MG/DL (2.5-4.9) Magnesium Level 2.1 MG/DL (1.8-2.4) Iron Level 40 ug/dL (50-175) L Total Iron Binding Capacity 146 ug/dL (250-450) L Percent Iron Saturation 27 % (15-50) Unsaturated Iron Binding 106 ug/dL (112-346) L Ferritin 319 NG/ML (8-388) Total Bilirubin 0.8 MG/DL (0.2-1.0) Aspartate Amino Transf (AST/SGOT) 38 U/L (15-37) H Alanine Aminotransferase (ALT/SGPT) 48 U/L (12-78) Alkaline Phosphatase 222 U/L (46-116) H C-Reactive Protein, Quantitative 7.6 mg/dL (0.00-0.90) H Total Protein 4.8 G/DL (6.4-8.2) L Albumin 1.8 G/DL (3.4-5.0) L Globulin 3.0 g/dL Albumin/Globulin Ratio 0.6 (1.0-2.7) L Vitamin B12 Level > 2000 PG/ML (193-986) H Folate 17.8 NG/ML (8.6-58.9) Objective HEAD AND NECK: Orally intubated and tracheostomy is covered. LUNGS: Coarse rhonchi. CARDIOVASCULAR: Regular S1 and S2 with no gallop. She has a chest tube. ABDOMEN: Soft. EXTREMITIES: 1+ pitting edema.Contracted Dat Oh MD February 27, 2020 16:56
[2020-02-27] MEDS: Dyna-Hex 2% Top Sol 2oz TOPIC SCH (20:52)
[2020-02-27] MEDS: DOPamine 400mg/250ml 250 ML IV SCH (20:53)
[2020-02-27] MEDS: Norepinephrine Bitartrate 16 MG in D5W 500ml 550 ML IV SCH (23:00)
--- NOTE | 2020-02-27 23:30 | Progress Note ---
DATE: 02/27/2020 SUBJECTIVE: This is a 49-year-old female who came for acute respiratory failure, intubated in the ER. The patient is currently nonverbal and bedbound on ventilator. PHYSICAL EXAMINATION: VITAL SIGNS: Blood pressure is 103/56, pulse 87, low-grade fever 99.5. CHEST: Bilaterally few crackles. CARDIOVASCULAR: Regular rhythm ABDOMEN: Soft. EXTREMITIES: CCE. NEUROLOGICAL: The patient has no focal deficit. ASSESSMENT: 1. Chronic respiratory failure. 2. Sepsis. 3. Dementia. 4. Anemia. PLAN: We will continue ventilator treatment, weaning protocols. Continue Dilantin. Discussed with charge nurse. Darin Delgado M.D. DR: ABDIFATAH JOB#: [id number] CC:
[2020-02-28] VITALS (33 sets, daily range): BP systolic 103–135; BP diastolic 46–69
[2020-02-28] MEDS: Midodrine 10mg tab GT SCH ×3 (05:35→21:46)
[2020-02-28] MEDS: metroNIDAZOLE 500mg tab GT SCH ×3 (05:35→21:46)
[2020-02-28 05:54] LABS: HEMATOCRIT 22.9 % (37.0-47.0); HEMOGLOBIN 7.9 G/DL (12.0-16.0); MEAN CORPUSCULAR VOLUME 89 FL (80-99); PLATELET COUNT 103 K/UL (150-450); RED BLOOD COUNT 2.57 M/UL (4.20-5.40); RED CELL DISTRIBUTION WIDTH 11.4 % (11.6-14.8); WHITE BLOOD COUNT 12.3 K/UL (4.8-10.8)
[2020-02-28 06:24] LABS: ALANINE AMINOTRANSFERASE 45 U/L (12-78); ALBUMIN 1.9 G/DL (3.4-5.0); ALBUMIN/GLOBULIN RATIO 0.6 (1.0-2.7); ALKALINE PHOSPHATASE 214 U/L (46-116); ANION GAP 6 mmol/L (5-15); ASPARTATE AMINO TRANSFERASE 38 U/L (15-37); BILIRUBIN,TOTAL 0.5 MG/DL (0.2-1.0); BLOOD UREA NITROGEN 13 mg/dL (7-18); CALCIUM 7.5 MG/DL (8.5-10.1); CARBON DIOXIDE 29 MMOL/L (21-32); CHLORIDE 110 MMOL/L (98-107); CREATININE 0.7 MG/DL (0.55-1.30); PHOSPHORUS 2.4 MG/DL (2.5-4.9); POTASSIUM 3.7 MMOL/L (3.5-5.1); SODIUM 145 MMOL/L (136-145)
[2020-02-28] MEDS: levETIRAcetam 500mg/NS100ml 100 ML IVPB SCH ×2 (08:23→21:16)
[2020-02-28] MEDS: Levofloxacin 750mg tab GT SCH (08:23)
--- NOTE | 2020-02-28 10:08 | Infectious Diseases Prog Note ---
"Assessment/Plan Assessment/Plan antibiotics : levoquin A 1. pseudomonas | stenotrophomonas pneumonia COVID 19 test negative x 2 on FiO2 40 percent, PEEP 5, 100 percent saturation 2. respiratory failure 3. shock improving 4. + blood cultures with coag neg staph likely contaminated 5. pneumothorax 6. hypertension 7. hydrocephalus 8, leucocytosis P 1. continue levoquin 8 more days 2. will follow up culture Subjective ROS Limited/Unobtainable: Yes Allergies: Coded Allergies: PENICILLINS (Verified Allergy, Unknown, 02/14/18) Objective Vital Signs Last 24 Hour Vital Signs Date Time Temp Pulse Resp B/P (MAP) Pulse Ox O2 Delivery O2 Flow Rate FiO2 02/28/20 09:30 84 27 121/64 (83) 100 02/28/20 09:00 99 33 125/67 (86) 99 02/28/20 08:30 98 32 124/65 (84) 100 02/28/20 08:16 100 02/28/20 08:00 93 27 118/61 (80) 100 02/28/20 08:00 Mechanical Ventilator Mechanical Ventilator 02/28/20 07:33 79 20 40 40 02/28/20 07:30 98.9 77 13 117/66 (83) 100 02/28/20 06:06 102 21 02/28/20 06:00 78 14 122/61 (81) 100 02/28/20 05:00 95 13 120/69 (86) 100 02/28/20 04:00 40 02/28/20 04:00 98.3 96 22 114/62 (79) 99 02/28/20 04:00 95 02/28/20 04:00 Mechanical Ventilator Mechanical Ventilator 02/28/20 03:00 94 20 112/62 (79) 99 02/28/20 02:38 94 20 40 02/28/20 02:00 89 20 116/46 (69) 100 02/28/20 01:00 90 21 117/65 (82) 99 02/28/20 00:00 86 02/28/20 00:00 99.2 93 20 122/65 (84) 99 02/28/20 00:00 40 02/28/20 00:00 Mechanical Ventilator Mechanical Ventilator 02/27/20 23:00 153/89 02/27/20 23:00 117 31 153/89 (110) 98 02/27/20 22:57 82 22 40 5/24/20 22:00 96 21 112/62 (79) 99 02/27/20 21:00 95 20 119/65 (83) 98 02/27/20 20:53 109/59 02/27/20 20:00 40 02/27/20 20:00 99 02/27/20 20:00 Mechanical Ventilator Mechanical Ventilator 02/27/20 20:00 99.2 99 21 118/61 (80) 100 02/27/20 19:04 90 20 40 02/27/20 19:00 91 20 119/63 (81) 100 02/27/20 18:00 91 20 105/59 (74) 99 02/27/20 17:00 87 18 113/63 (80) 100 02/27/20 16:00 40 02/27/20 16:00 89 02/27/20 16:00 Mechanical Ventilator Mechanical Ventilator 02/27/20 16:00 99.3 83 12 110/57 (74) 100 02/27/20 15:24 85 20 40 02/27/20 15:00 87 20 103/56 (72) 99 02/27/20 14:00 99.5 103 19 98/61 (73) 100 02/27/20 13:00 100 20 99/57 (71) 100 02/27/20 12:00 97 02/27/20 12:00 Mechanical Ventilator Mechanical Ventilator 02/27/20 12:00 99.6 104 20 108/52 (70) 100 02/27/20 12:00 40 02/27/20 11:04 97 21 40 02/27/20 11:00 96 20 96/53 (67) 99 Height (Feet): 5 Height (Inches): 4.00 Weight (Pounds): 160 HEENT: other - intubated Respiratory/Chest: lungs clear Cardiovascular: normal rate, regular rhythm, no gallop/murmur Abdomen: soft, non tender, other - GT Extremities: no edema Microbiology Date/Time Source Procedure Growth Status 02/28/20 04:30 Stool Clostridium difficile Toxin Assay - Final Complete Laboratory Tests Test 02/28/20 04:00 White Blood Count 12.3 K/UL (4.8-10.8) H Red Blood Count 2.57 M/UL (4.20-5.40) L Hemoglobin 7.9 G/DL (12.0-16.0) L Hematocrit 22.9 % (37.0-47.0) L Mean Corpuscular Volume 89 FL (80-99) Mean Corpuscular Hemoglobin 30.9 PG (27.0-31.0) Mean Corpuscular Hemoglobin Concent 34.7 G/DL (32.0-36.0) Red Cell Distribution Width 11.4 % (11.6-14.8) L Platelet Count 103 K/UL (150-450) L Mean Platelet Volume 9.1 FL (6.5-10.1) Neutrophils (%) (Auto) % (45.0-75.0) Lymphocytes (%) (Auto) % (20.0-45.0) Monocytes (%) (Auto) % (1.0-10.0) Eosinophils (%) (Auto) % (0.0-3.0) Basophils (%) (Auto) % (0.0-2.0) Sodium Level 145 MMOL/L (136-145) Potassium Level 3.7 MMOL/L (3.5-5.1) Chloride Level 110 MMOL/L (98-107) H Carbon Dioxide Level 29 MMOL/L (21-32) Anion Gap 6 mmol/L (5-15) Blood Urea Nitrogen 13 mg/dL (7-18) Creatinine 0.7 MG/DL (0.55-1.30) Estimat Glomerular Filtration Rate > 60 mL/min (>60) Glucose Level 110 MG/DL (74-106) H Uric Acid 2.7 MG/DL (2.6-7.2) Calcium Level 7.5 MG/DL (8.5-10.1) L Phosphorus Level 2.4 MG/DL (2.5-4.9) L Magnesium Level 1.7 MG/DL (1.8-2.4) L Total Bilirubin 0.5 MG/DL (0.2-1.0) Gamma Glutamyl Transpeptidase 511 U/L (5-85) H Aspartate Amino Transf (AST/SGOT) 38 U/L (15-37) H Alanine Aminotransferase (ALT/SGPT) 45 U/L (12-78) Alkaline Phosphatase 214 U/L (46-116) H C-Reactive Protein, Quantitative 4.2 mg/dL (0.00-0.90) H Pro-B-Type Natriuretic Peptide 1198 pg/mL (0-125) H Total Protein 5.1 G/DL (6.4-8.2) L Albumin 1.9 G/DL (3.4-5.0) L Globulin 3.2 g/dL Albumin/Globulin Ratio 0.6 (1.0-2.7) L Current Medications Medications (Trade) Dose Ordered Sig/Bere Route PRN Reason Start Time Stop Time Status Last Admin Dose Admin Acetaminophen (Tylenol) 650 mg Q4H PRN GT Temp >100.5 02/19/20 22:00 03/20/20 21:59 02/26/20 15:50 Chlorhexidine Gluconate (Jane-Hex 2%) 1 applic DAILY@2000 TOPIC 02/20/20 20:00 05/20/20 19:59 02/27/20 20:52 Dopamine HCl/ Dextrose 250 ml @ 0 mls/hr Q24H IV 02/19/20 21:00 05/19/20 20:59 02/21/20 03:10 Famotidine (Pepcid) 20 mg BID GT 02/27/20 18:00 05/27/20 17:59 02/28/20 08:23 Levetiracetam 100 ml @ 400 mls/hr Q12HR IVPB 02/20/20 09:00 05/20/20 08:59 02/28/20 08:23 Levofloxacin (Levaquin) 750 mg DAILY GT 02/27/20 10:15 03/05/20 10:14 02/28/20 08:23 Magnesium Sulfate 100 ml @ 100 mls/hr Q1H IVPB 02/28/20 09:45 02/28/20 11:44 Metronidazole (Flagyl) 500 mg Q8HR GT 02/27/20 14:00 03/05/20 13:59 02/28/20 05:35 Midodrine (Pro-Amatine) 10 mg Q8HR GT 02/27/20 14:00 05/25/20 13:59 02/28/20 05:35 Morphine Sulfate (Morphine Sulfate) 2 mg Q4H PRN IVP For Pain 02/23/20 12:15 03/01/20 12:14 Norepinephrine Bitartrate 16 mg/ Dextrose 566 ml @ 0 mls/hr Q24H IV 02/22/20 23:00 03/23/20 22:59 02/24/20 00:12 Phenytoin (Dilantin) 150 mg Q12H IVP 02/26/20 21:00 03/27/20 20:59 02/28/20 08:22 Potassium Phosphate 20 mm/ Sodium Chloride 281.6667 ml @ 46.944 m... ONCE ONCE IV 02/28/20 11:00 02/28/20 16:59 Potassium Chloride (K-Dur) 20 meq BID GT 02/27/20 18:00 05/24/20 17:59 02/28/20 08:23 Lulu Gurrola MD February 28, 2020 10:08"
--- NOTE | 2020-02-28 10:30 | Pulmonology Progress Note ---
Subjective ROS Limited/Unobtainable: Yes Interval Events: None new; remains intubated Constitutional: Reports: fever, other - on cooling banket HEENT: Repors: no symptoms Respiratory: Reports: no symptoms Cardiovascular: Reports: no symptoms Gastrointestinal/Abdominal: Reports: diarrhea Allergies: Coded Allergies: PENICILLINS (Verified Allergy, Unknown, 02/14/18) Objective Last 24 Hour Vital Signs Date Time Temp Pulse Resp B/P (MAP) Pulse Ox O2 Delivery O2 Flow Rate FiO2 02/28/20 09:30 84 27 121/64 (83) 100 02/28/20 09:00 99 33 125/67 (86) 99 02/28/20 08:30 98 32 124/65 (84) 100 02/28/20 08:16 100 02/28/20 08:00 93 27 118/61 (80) 100 02/28/20 08:00 Mechanical Ventilator Mechanical Ventilator 02/28/20 07:33 79 20 40 40 02/28/20 07:30 98.9 77 13 117/66 (83) 100 02/28/20 06:06 102 21 02/28/20 06:00 78 14 122/61 (81) 100 02/28/20 05:00 95 13 120/69 (86) 100 02/28/20 04:00 40 02/28/20 04:00 98.3 96 22 114/62 (79) 99 02/28/20 04:00 95 02/28/20 04:00 Mechanical Ventilator Mechanical Ventilator 02/28/20 03:00 94 20 112/62 (79) 99 02/28/20 02:38 94 20 40 02/28/20 02:00 89 20 116/46 (69) 100 02/28/20 01:00 90 21 117/65 (82) 99 02/28/20 00:00 86 02/28/20 00:00 99.2 93 20 122/65 (84) 99 02/28/20 00:00 40 02/28/20 00:00 Mechanical Ventilator Mechanical Ventilator 02/27/20 23:00 153/89 02/27/20 23:00 117 31 153/89 (110) 98 02/27/20 22:57 82 22 40 02/27/20 22:00 96 21 112/62 (79) 99 02/27/20 21:00 95 20 119/65 (83) 98 02/27/20 20:53 109/59 02/27/20 20:00 40 02/27/20 20:00 99 02/27/20 20:00 Mechanical Ventilator Mechanical Ventilator 02/27/20 20:00 99.2 99 21 118/61 (80) 100 02/27/20 19:04 90 20 40 02/27/20 19:00 91 20 119/63 (81) 100 02/27/20 18:00 91 20 105/59 (74) 99 02/27/20 17:00 87 18 113/63 (80) 100 02/27/20 16:00 40 02/27/20 16:00 89 02/27/20 16:00 Mechanical Ventilator Mechanical Ventilator 02/27/20 16:00 99.3 83 12 110/57 (74) 100 02/27/20 15:24 85 20 40 02/27/20 15:00 87 20 103/56 (72) 99 02/27/20 14:00 99.5 103 19 98/61 (73) 100 02/27/20 13:00 100 20 99/57 (71) 100 02/27/20 12:00 97 02/27/20 12:00 Mechanical Ventilator Mechanical Ventilator 02/27/20 12:00 99.6 104 20 108/52 (70) 100 02/27/20 12:00 40 02/27/20 11:04 97 21 40 02/27/20 11:00 96 20 96/53 (67) 99 Intake and Output 02/27/20 02/28/20 19:00 07:00 Intake Total 880 ml 640 ml Output Total 690 ml 1140 ml Balance 190 ml -500 ml IV Total 400 ml 100 ml Tube Feeding 480 ml 480 ml Other 60 ml Output Urine Total 390 ml 1040 ml Stool Total 300 ml 100 ml General Appearance: no acute distress HEENT: normocephalic Respiratory: chest wall non-tender, lungs clear Cardiovascular: normal peripheral pulses Abdomen: normal bowel sounds Microbiology Date/Time Source Procedure Growth Status 02/28/20 04:30 Stool Clostridium difficile Toxin Assay - Final Complete Laboratory Tests 02/28/20 04:00: White Blood Count 12.3H, Red Blood Count 2.57L, Hemoglobin 7.9L, Hematocrit 22.9L, Mean Corpuscular Volume 89, Mean Corpuscular Hemoglobin 30.9, Mean Corpuscular Hemoglobin Concent 34.7, Red Cell Distribution Width 11.4L, Platelet Count 103L, Mean Platelet Volume 9.1, Neutrophils (%) (Auto) , Lymphocytes (%) (Auto) , Monocytes (%) (Auto) , Eosinophils (%) (Auto) , Basophils (%) (Auto) , Sodium Level 145, Potassium Level 3.7, Chloride Level 110H, Carbon Dioxide Level 29, Anion Gap 6, Blood Urea Nitrogen 13, Creatinine 0.7, Estimat Glomerular Filtration Rate > 60, Glucose Level 110H, Uric Acid 2.7 , Calcium Level 7.5L, Phosphorus Level 2.4L, Magnesium Level 1.7L, Total Bilirubin 0.5, Gamma Glutamyl Transpeptidase 511H, Aspartate Amino Transf (AST/ SGOT) 38H, Alanine Aminotransferase (ALT/SGPT) 45, Alkaline Phosphatase 214H, C- Reactive Protein, Quantitative 4.2H, Pro-B-Type Natriuretic Peptide 1198H, Total Protein 5.1L, Albumin 1.9L, Globulin 3.2, Albumin/Globulin Ratio 0.6L Current Medications Medications (Trade) Dose Ordered Sig/Bere Route PRN Reason Start Time Stop Time Status Last Admin Dose Admin Acetaminophen (Tylenol) 650 mg Q4H PRN GT Temp >100.5 02/19/20 22:00 03/20/20 21:59 02/26/20 15:50 Chlorhexidine Gluconate (Jane-Hex 2%) 1 applic DAILY@2000 TOPIC 02/20/20 20:00 05/20/20 19:59 02/27/20 20:52 Dopamine HCl/ Dextrose 250 ml @ 0 mls/hr Q24H IV 02/19/20 21:00 05/19/20 20:59 02/21/20 03:10 Famotidine (Pepcid) 20 mg BID GT 02/27/20 18:00 05/27/20 17:59 02/28/20 08:23 Levetiracetam 100 ml @ 400 mls/hr Q12HR IVPB 02/20/20 09:00 05/20/20 08:59 02/28/20 08:23 Levofloxacin (Levaquin) 750 mg DAILY GT 02/27/20 10:15 03/05/20 10:14 02/28/20 08:23 Magnesium Sulfate 100 ml @ 100 mls/hr Q1H IVPB 02/28/20 09:45 02/28/20 11:44 Metronidazole (Flagyl) 500 mg Q8HR GT 02/27/20 14:00 03/05/20 13:59 02/28/20 05:35 Midodrine (Pro-Amatine) 10 mg Q8HR GT 02/27/20 14:00 05/25/20 13:59 02/28/20 05:35 Morphine Sulfate (Morphine Sulfate) 2 mg Q4H PRN IVP For Pain 02/23/20 12:15 03/01/20 12:14 Norepinephrine Bitartrate 16 mg/ Dextrose 566 ml @ 0 mls/hr Q24H IV 02/22/20 23:00 03/23/20 22:59 02/24/20 00:12 Phenytoin (Dilantin) 150 mg Q12H IVP 02/26/20 21:00 03/27/20 20:59 02/28/20 08:22 Potassium Phosphate 20 mm/ Sodium Chloride 281.6667 ml @ 46.944 m... ONCE ONCE IV 02/28/20 11:00 02/28/20 16:59 Potassium Chloride (K-Dur) 20 meq BID GT 02/27/20 18:00 05/24/20 17:59 02/28/20 08:23 Assessment/Plan Assessment/Plan IMPRESSION: 1. Status post left pneumothorax with chest tube in place. 2. Tracheal bleeding, status post removal. 3. Respiratory failure, status post orotracheal intubation. 4. Transaminitis. 5. Leukocytosis. 6. Chronic encephalopathy. 7. Chronic respiratory failure. DISCUSSION: Continue assist-control mechanical ventilation. I will decrease PEEP as much as possible. Keep chest tube to suction. Broad-spectrum antibiotics. Enteral feedings. Continue medications. Follow carefully. Seen by surgery; will need trach revision Surgery notes reviewed; family discussion noted Family reportedly considering terminal extubation Will monitor Febrile; cooling measures noted Would not wean; has chronic resp failure Celestino Haile M.D. Celestino Haile MD February 28, 2020 10:30
--- NOTE | 2020-02-28 10:50 | Surgery Progress Note ---
Surgery Progress Note Subjective Additional Comments not able to wean vent need family discussion brien to determine goals of care and plan Objective Last 24 Hour Vital Signs Date Time Temp Pulse Resp B/P (MAP) Pulse Ox O2 Delivery O2 Flow Rate FiO2 02/28/20 09:30 84 27 121/64 (83) 100 02/28/20 09:00 99 33 125/67 (86) 99 02/28/20 08:30 98 32 124/65 (84) 100 02/28/20 08:16 100 02/28/20 08:00 93 27 118/61 (80) 100 02/28/20 08:00 Mechanical Ventilator Mechanical Ventilator 02/28/20 07:33 79 20 40 40 02/28/20 07:30 98.9 77 13 117/66 (83) 100 02/28/20 06:06 102 21 02/28/20 06:00 78 14 122/61 (81) 100 02/28/20 05:00 95 13 120/69 (86) 100 02/28/20 04:00 40 02/28/20 04:00 98.3 96 22 114/62 (79) 99 02/28/20 04:00 95 02/28/20 04:00 Mechanical Ventilator Mechanical Ventilator 02/28/20 03:00 94 20 112/62 (79) 99 02/28/20 02:38 94 20 40 02/28/20 02:00 89 20 116/46 (69) 100 02/28/20 01:00 90 21 117/65 (82) 99 02/28/20 00:00 86 02/28/20 00:00 99.2 93 20 122/65 (84) 99 02/28/20 00:00 40 02/28/20 00:00 Mechanical Ventilator Mechanical Ventilator 02/27/20 23:00 153/89 02/27/20 23:00 117 31 153/89 (110) 98 02/27/20 22:57 82 22 40 02/27/20 22:00 96 21 112/62 (79) 99 02/27/20 21:00 95 20 119/65 (83) 98 02/27/20 20:53 109/59 02/27/20 20:00 40 02/27/20 20:00 99 02/27/20 20:00 Mechanical Ventilator Mechanical Ventilator 02/27/20 20:00 99.2 99 21 118/61 (80) 100 02/27/20 19:04 90 20 40 02/27/20 19:00 91 20 119/63 (81) 100 02/27/20 18:00 91 20 105/59 (74) 99 02/27/20 17:00 87 18 113/63 (80) 100 02/27/20 16:00 40 02/27/20 16:00 89 02/27/20 16:00 Mechanical Ventilator Mechanical Ventilator 02/27/20 16:00 99.3 83 12 110/57 (74) 100 02/27/20 15:24 85 20 40 02/27/20 15:00 87 20 103/56 (72) 99 02/27/20 14:00 99.5 103 19 98/61 (73) 100 02/27/20 13:00 100 20 99/57 (71) 100 02/27/20 12:00 97 02/27/20 12:00 Mechanical Ventilator Mechanical Ventilator 02/27/20 12:00 99.6 104 20 108/52 (70) 100 02/27/20 12:00 40 02/27/20 11:04 97 21 40 02/27/20 11:00 96 20 96/53 (67) 99 I&O Intake and Output 02/27/20 02/28/20 19:00 07:00 Intake Total 880 ml 640 ml Output Total 690 ml 1140 ml Balance 190 ml -500 ml IV Total 400 ml 100 ml Tube Feeding 480 ml 480 ml Other 60 ml Output Urine Total 390 ml 1040 ml Stool Total 300 ml 100 ml Dressing: other Drains: other Cardiovascular: RSR Respiratory: decreased breath sounds Abdomen: soft, non-tender, present bowel sounds Extremities: no cyanosis Laboratory Tests Test 02/28/20 04:00 White Blood Count 12.3 K/UL (4.8-10.8) H Red Blood Count 2.57 M/UL (4.20-5.40) L Hemoglobin 7.9 G/DL (12.0-16.0) L Hematocrit 22.9 % (37.0-47.0) L Mean Corpuscular Volume 89 FL (80-99) Mean Corpuscular Hemoglobin 30.9 PG (27.0-31.0) Mean Corpuscular Hemoglobin Concent 34.7 G/DL (32.0-36.0) Red Cell Distribution Width 11.4 % (11.6-14.8) L Platelet Count 103 K/UL (150-450) L Mean Platelet Volume 9.1 FL (6.5-10.1) Neutrophils (%) (Auto) % (45.0-75.0) Lymphocytes (%) (Auto) % (20.0-45.0) Monocytes (%) (Auto) % (1.0-10.0) Eosinophils (%) (Auto) % (0.0-3.0) Basophils (%) (Auto) % (0.0-2.0) Sodium Level 145 MMOL/L (136-145) Potassium Level 3.7 MMOL/L (3.5-5.1) Chloride Level 110 MMOL/L (98-107) H Carbon Dioxide Level 29 MMOL/L (21-32) Anion Gap 6 mmol/L (5-15) Blood Urea Nitrogen 13 mg/dL (7-18) Creatinine 0.7 MG/DL (0.55-1.30) Estimat Glomerular Filtration Rate > 60 mL/min (>60) Glucose Level 110 MG/DL (74-106) H Uric Acid 2.7 MG/DL (2.6-7.2) Calcium Level 7.5 MG/DL (8.5-10.1) L Phosphorus Level 2.4 MG/DL (2.5-4.9) L Magnesium Level 1.7 MG/DL (1.8-2.4) L Total Bilirubin 0.5 MG/DL (0.2-1.0) Gamma Glutamyl Transpeptidase 511 U/L (5-85) H Aspartate Amino Transf (AST/SGOT) 38 U/L (15-37) H Alanine Aminotransferase (ALT/SGPT) 45 U/L (12-78) Alkaline Phosphatase 214 U/L (46-116) H C-Reactive Protein, Quantitative 4.2 mg/dL (0.00-0.90) H Pro-B-Type Natriuretic Peptide 1198 pg/mL (0-125) H Total Protein 5.1 G/DL (6.4-8.2) L Albumin 1.9 G/DL (3.4-5.0) L Globulin 3.2 g/dL Albumin/Globulin Ratio 0.6 (1.0-2.7) L Plan Problems: (1) Pneumothorax Assessment & Plan: cont chest tube to water seal am cxr will monitor hold removal until decision for trach made 1. Left-sided pneumothorax, approximately 50% by volume. 2. Extensive subcutaneous emphysema throughout the chest wall and neck soft tissues bilaterally. s/p chest tube Lungs: Persistent mild increased interstitial markings. The lungs are otherwise clear without focal consolidation. Pleural space: Interval significant improvement of the left-sided pneumothorax, no longer well seen. Heart: Unremarkable. No cardiomegaly. Mediastinum: Unremarkable. Bones/joints: Unremarkable. Soft tissues: Persistent but improved subcutaneous emphysema in the chest reed and neck soft tissues bilaterally. Tubes, lines and devices: Left-sided chest tube in place, with expected positioning. Endotracheal tube tip 3.2 cm above the emerita. Telemetry leads overlie the thorax. IMPRESSION: 1. Left-sided chest tube in place, with expected positioning. 2. Interval significant improvement of the left-sided pneumothorax, which is no longer well seen. 3. Persistent mild increased interstitial markings. This is nonspecific but may suggest mild interstitial edema or a mild pneumonitis. No focal consolidation. 4. Improved subcutaneous emphysema in the chest reed and neck soft tissues bilaterally. (2) Respiratory arrest Assessment & Plan: TRACH REMOVED, SITE BLEEDING. LT CHEST TUNE TO SUCTION. FEMORAL ACCESS will plan for trach new when stable (3) Respiratory distress (4) Tracheostomy complication Assessment & Plan: trach complication intubated on support will need to revise trach once stable thank you Hold on trach revision his family is considering terminal extubation At withdrawal of care JesusAnt February 28, 2020 10:50
[2020-02-28] MEDS ORDERED: Potassium Phosphate 20 MM in NS 275 ML IV ONE (11:00)
--- NOTE | 2020-02-28 11:58 | Nephrology Progress Note ---
Assessment/Plan Problem List: (1) Electrolyte imbalance (2) Elevated liver enzymes (3) Respiratory failure (4) Hypoalbuminemia (5) Proteinuria (6) Leukocytosis Assessment HypoKalemia Proteinuria, hypoalbuminemia, BUN and creatinine within normal range Chronic respiratory failure Status post left pneumothorax with chest tube in place Transaminitis Leukocytosis Sepsis, bacteremia with gram-positive cocci Anoxic encephalopathy Seizure disorder Penicillin allergy Hypertension Plan February 27: Potassium and phosphate supplement. Magnesium supplement. C. difficile negative. Check Dilantin level tomorrow February 26: Potassium is low again most likely due to diarrhea Will stop IV Reglan Will order stool for C. difficile Continue adjusting Dilantin level and continue on Midodrine Discussed with RN February 25: More potassium and magnesium supplement today Increase GT feeding Adjust Dilantin dose Increase midodrine Continue to monitor her electrolytes and renal parameters Discussed with RN Per orders February 24: Today's lab results noted. Serum potassium now within acceptable range GT tube is now clamped will start GT feeding. Continue IV Reglan. DC IV fluid and IV Lasix. Monitor electrolytes and renal parameters. Midodrine through GT tube for blood pressure below 100 systolic Discussed with RN February 23: We will clamp the GT and disconnected from suction Increase Protonix to every 12 hours IV IV Reglan 100 mEq of KCl intravenously Continue to monitor electrolytes Discussed with RN February 22: Low potassium is replaced intravenously and via GT Stool for C. difficile sent Will monitor electrolytes Continue per consultants regarding normalizing LFTs and underlying sepsis February 21: Leukocytosis worsened, Blood pressure borderline low LFTs remain elevated Abnormal magnesium potassium and phosphorus on the can panel Supplements for potassium magnesium and phosphorus ordered and continue as needed Continue to check calcium and phosphorus and liver function tests Continue per ID and pulmonary Keep the blood pressure and blood sugar in check Per orders Subjective ROS Limited/Unobtainable: Yes Objective Objective Last 24 Hour Vital Signs Date Time Temp Pulse Resp B/P (MAP) Pulse Ox O2 Delivery O2 Flow Rate FiO2 02/28/20 11:30 99.0 98 20 114/60 (78) 100 02/28/20 11:12 95 20 40 02/28/20 11:00 93 20 120/66 (84) 100 02/28/20 10:30 100 23 135/67 (89) 100 02/28/20 10:00 105 35 124/63 (83) 100 02/28/20 09:30 84 27 121/64 (83) 100 5/25/20 09:00 99 33 125/67 (86) 99 02/28/20 08:30 98 32 124/65 (84) 100 02/28/20 08:16 100 02/28/20 08:00 40 02/28/20 08:00 93 27 118/61 (80) 100 02/28/20 08:00 Mechanical Ventilator Mechanical Ventilator 02/28/20 07:33 79 20 40 40 02/28/20 07:30 98.9 77 13 117/66 (83) 100 02/28/20 06:06 102 21 02/28/20 06:00 78 14 122/61 (81) 100 02/28/20 05:00 95 13 120/69 (86) 100 02/28/20 04:00 40 02/28/20 04:00 98.3 96 22 114/62 (79) 99 02/28/20 04:00 95 02/28/20 04:00 Mechanical Ventilator Mechanical Ventilator 02/28/20 03:00 94 20 112/62 (79) 99 02/28/20 02:38 94 20 40 02/28/20 02:00 89 20 116/46 (69) 100 02/28/20 01:00 90 21 117/65 (82) 99 02/28/20 00:00 86 02/28/20 00:00 99.2 93 20 122/65 (84) 99 02/28/20 00:00 40 02/28/20 00:00 Mechanical Ventilator Mechanical Ventilator 02/27/20 23:00 153/89 02/27/20 23:00 117 31 153/89 (110) 98 02/27/20 22:57 82 22 40 02/27/20 22:00 96 21 112/62 (79) 99 02/27/20 21:00 95 20 119/65 (83) 98 02/27/20 20:53 109/59 02/27/20 20:00 40 02/27/20 20:00 99 02/27/20 20:00 Mechanical Ventilator Mechanical Ventilator 02/27/20 20:00 99.2 99 21 118/61 (80) 100 02/27/20 19:04 90 20 40 02/27/20 19:00 91 20 119/63 (81) 100 02/27/20 18:00 91 20 105/59 (74) 99 02/27/20 17:00 87 18 113/63 (80) 100 02/27/20 16:00 40 02/27/20 16:00 89 02/27/20 16:00 Mechanical Ventilator Mechanical Ventilator 02/27/20 16:00 99.3 83 12 110/57 (74) 100 02/27/20 15:24 85 20 40 02/27/20 15:00 87 20 103/56 (72) 99 02/27/20 14:00 99.5 103 19 98/61 (73) 100 02/27/20 13:00 100 20 99/57 (71) 100 02/27/20 12:00 97 02/27/20 12:00 Mechanical Ventilator Mechanical Ventilator 02/27/20 12:00 99.6 104 20 108/52 (70) 100 02/27/20 12:00 40 Intake and Output 02/27/20 02/28/20 19:00 07:00 Intake Total 880 ml 640 ml Output Total 690 ml 1140 ml Balance 190 ml -500 ml IV Total 400 ml 100 ml Tube Feeding 480 ml 480 ml Other 60 ml Output Urine Total 390 ml 1040 ml Stool Total 300 ml 100 ml Laboratory Tests 02/28/20 04:00: White Blood Count 12.3H, Red Blood Count 2.57L, Hemoglobin 7.9L, Hematocrit 22.9L, Mean Corpuscular Volume 89, Mean Corpuscular Hemoglobin 30.9, Mean Corpuscular Hemoglobin Concent 34.7, Red Cell Distribution Width 11.4L, Platelet Count 103L, Mean Platelet Volume 9.1, Neutrophils (%) (Auto) , Lymphocytes (%) (Auto) , Monocytes (%) (Auto) , Eosinophils (%) (Auto) , Basophils (%) (Auto) , Sodium Level 145, Potassium Level 3.7, Chloride Level 110H, Carbon Dioxide Level 29, Anion Gap 6, Blood Urea Nitrogen 13, Creatinine 0.7, Estimat Glomerular Filtration Rate > 60, Glucose Level 110H, Uric Acid 2.7 , Calcium Level 7.5L, Phosphorus Level 2.4L, Magnesium Level 1.7L, Total Bilirubin 0.5, Gamma Glutamyl Transpeptidase 511H, Aspartate Amino Transf (AST/ SGOT) 38H, Alanine Aminotransferase (ALT/SGPT) 45, Alkaline Phosphatase 214H, C- Reactive Protein, Quantitative 4.2H, Pro-B-Type Natriuretic Peptide 1198H, Total Protein 5.1L, Albumin 1.9L, Globulin 3.2, Albumin/Globulin Ratio 0.6L Height (Feet): 5 Height (Inches): 4.00 Weight (Pounds): 160 General Appearance: no apparent distress EENT: other - On ventilator Cardiovascular: tachycardia Respiratory/Chest: decreased breath sounds Abdomen: soft Objective No change Erich Link MD February 28, 2020 11:58
--- NOTE | 2020-02-28 13:44 | Cardiac Electrophysiology PN ---
Assessment/Plan Assessment/Plan 1. Respiratory failure. Orally intubated on the vent. Fio2 40% and PEEP 5. Fu by Dr. Haile. Terminal extubation vs new trach per sister pending 2. Paroxysmal atrial fibrillation, off anticoagulation in view of bleeding from the trach site. Converted to SR 3. Left Pneumothorax, status post Left chest tube placement to water seal on antibiotic. 4. S/P Septic Shock , off Levophed 5. Dysphagia, status post PEG placement. 6. Dementia. 7. Hypernatremia on IV fluids. 8. Chronic encephalopathy. LUIS RN Subjective Subjective In ICU on the vent and off pressors. Trach is covered. Sister hasn't called yet to make decision re terminal extubation vs Re-tracheostomy Objective Last 24 Hour Vital Signs Date Time Temp Pulse Resp B/P (MAP) Pulse Ox O2 Delivery O2 Flow Rate FiO2 02/28/20 13:00 101 23 110/59 (76) 100 02/28/20 12:30 98.9 92 20 114/58 (76) 100 02/28/20 12:00 Mechanical Ventilator Mechanical Ventilator 02/28/20 12:00 94 02/28/20 12:00 101 21 110/58 (75) 100 02/28/20 12:00 40 02/28/20 11:30 99.0 98 20 114/60 (78) 100 02/28/20 11:12 95 20 40 02/28/20 11:00 93 20 120/66 (84) 100 02/28/20 10:30 100 23 135/67 (89) 100 02/28/20 10:00 105 35 124/63 (83) 100 02/28/20 09:30 84 27 121/64 (83) 100 02/28/20 09:00 99 33 125/67 (86) 99 02/28/20 08:30 98 32 124/65 (84) 100 02/28/20 08:16 100 02/28/20 08:00 73 02/28/20 08:00 40 02/28/20 08:00 93 27 118/61 (80) 100 02/28/20 08:00 Mechanical Ventilator Mechanical Ventilator 02/28/20 07:33 79 20 40 40 02/28/20 07:30 98.9 77 13 117/66 (83) 100 02/28/20 06:06 102 21 02/28/20 06:00 78 14 122/61 (81) 100 02/28/20 05:00 95 13 120/69 (86) 100 02/28/20 04:00 40 02/28/20 04:00 98.3 96 22 114/62 (79) 99 02/28/20 04:00 95 02/28/20 04:00 Mechanical Ventilator Mechanical Ventilator 02/28/20 03:00 94 20 112/62 (79) 99 02/28/20 02:38 94 20 40 02/28/20 02:00 89 20 116/46 (69) 100 02/28/20 01:00 90 21 117/65 (82) 99 02/28/20 00:00 86 02/28/20 00:00 99.2 93 20 122/65 (84) 99 02/28/20 00:00 40 02/28/20 00:00 Mechanical Ventilator Mechanical Ventilator 02/27/20 23:00 153/89 02/27/20 23:00 117 31 153/89 (110) 98 02/27/20 22:57 82 22 40 02/27/20 22:00 96 21 112/62 (79) 99 02/27/20 21:00 95 20 119/65 (83) 98 02/27/20 20:53 109/59 02/27/20 20:00 40 02/27/20 20:00 99 02/27/20 20:00 Mechanical Ventilator Mechanical Ventilator 02/27/20 20:00 99.2 99 21 118/61 (80) 100 02/27/20 19:04 90 20 40 02/27/20 19:00 91 20 119/63 (81) 100 02/27/20 18:00 91 20 105/59 (74) 99 02/27/20 17:00 87 18 113/63 (80) 100 02/27/20 16:00 40 02/27/20 16:00 89 02/27/20 16:00 Mechanical Ventilator Mechanical Ventilator 02/27/20 16:00 99.3 83 12 110/57 (74) 100 02/27/20 15:24 85 20 40 02/27/20 15:00 87 20 103/56 (72) 99 02/27/20 14:00 99.5 103 19 98/61 (73) 100 Intake and Output 02/27/20 02/28/20 19:00 07:00 Intake Total 880 ml 640 ml Output Total 690 ml 1140 ml Balance 190 ml -500 ml IV Total 400 ml 100 ml Tube Feeding 480 ml 480 ml Other 60 ml Output Urine Total 390 ml 1040 ml Stool Total 300 ml 100 ml Laboratory Tests Test 02/28/20 04:00 White Blood Count 12.3 K/UL (4.8-10.8) H Red Blood Count 2.57 M/UL (4.20-5.40) L Hemoglobin 7.9 G/DL (12.0-16.0) L Hematocrit 22.9 % (37.0-47.0) L Mean Corpuscular Volume 89 FL (80-99) Mean Corpuscular Hemoglobin 30.9 PG (27.0-31.0) Mean Corpuscular Hemoglobin Concent 34.7 G/DL (32.0-36.0) Red Cell Distribution Width 11.4 % (11.6-14.8) L Platelet Count 103 K/UL (150-450) L Mean Platelet Volume 9.1 FL (6.5-10.1) Neutrophils (%) (Auto) % (45.0-75.0) Lymphocytes (%) (Auto) % (20.0-45.0) Monocytes (%) (Auto) % (1.0-10.0) Eosinophils (%) (Auto) % (0.0-3.0) Basophils (%) (Auto) % (0.0-2.0) Sodium Level 145 MMOL/L (136-145) Potassium Level 3.7 MMOL/L (3.5-5.1) Chloride Level 110 MMOL/L (98-107) H Carbon Dioxide Level 29 MMOL/L (21-32) Anion Gap 6 mmol/L (5-15) Blood Urea Nitrogen 13 mg/dL (7-18) Creatinine 0.7 MG/DL (0.55-1.30) Estimat Glomerular Filtration Rate > 60 mL/min (>60) Glucose Level 110 MG/DL (74-106) H Uric Acid 2.7 MG/DL (2.6-7.2) Calcium Level 7.5 MG/DL (8.5-10.1) L Phosphorus Level 2.4 MG/DL (2.5-4.9) L Magnesium Level 1.7 MG/DL (1.8-2.4) L Total Bilirubin 0.5 MG/DL (0.2-1.0) Gamma Glutamyl Transpeptidase 511 U/L (5-85) H Aspartate Amino Transf (AST/SGOT) 38 U/L (15-37) H Alanine Aminotransferase (ALT/SGPT) 45 U/L (12-78) Alkaline Phosphatase 214 U/L (46-116) H C-Reactive Protein, Quantitative 4.2 mg/dL (0.00-0.90) H Pro-B-Type Natriuretic Peptide 1198 pg/mL (0-125) H Total Protein 5.1 G/DL (6.4-8.2) L Albumin 1.9 G/DL (3.4-5.0) L Globulin 3.2 g/dL Albumin/Globulin Ratio 0.6 (1.0-2.7) L Microbiology Date/Time Source Procedure Growth Status 02/28/20 04:30 Stool Clostridium difficile Toxin Assay - Final Complete Objective HEAD AND NECK: Orally intubated and tracheostomy is covered. LUNGS: Coarse rhonchi. CARDIOVASCULAR: Regular S1 and S2 with no gallop. She has a chest tube. ABDOMEN: Soft. EXTREMITIES: 1+ pitting edema.Contracted Dat Oh MD February 28, 2020 13:44
--- NOTE | 2020-02-28 17:30 | Progress Note ---
DATE: 02/28/2020 SUBJECTIVE: This is elderly female, currently in the bed, nonverbal, opens her eyes, looks comfortable. OBJECTIVE: VITAL SIGNS: Blood pressure has been stable. Current blood pressure 114/60, pulse 98, respirations 20, temperature 99. HEENT: AT/NC. EOMI. PERRLA. NECK: Supple. No JVD. CHEST: Bilateral few crackles. Decreased breath sounds. CARDIOVASCULAR: Regular rhythm. No gallop. No murmur. ABDOMEN: Soft. Positive bowel sounds. Nontender. EXTREMITIES: CCE. NEUROLOGICAL: No focal deficit. LABORATORY DATA: Her white counts are 12,000, hemoglobin 7.9. Chemistry panel sodium 145, potassium 3.7, BUN 13, creatinine 0.7, glucose 110. BNP was 1198. ASSESSMENT: 1. Acute respiratory failure. 2. Cardiopulmonary arrest. 3. Encephalopathy. 4. Dysphagia. PLAN: We will currently continue current treatment. Continue weaning protocols, patient has probably failed. Continue antibiotic, bronchodilator treatments. Continue G-tube feeding. Darin Delgado M.D. DR: CRISTELA JOB#: [id number] CC:
[2020-02-28] MEDS: Dyna-Hex 2% Top Sol 2oz TOPIC SCH (20:29)
[2020-02-28] MEDS: DOPamine 400mg/250ml 250 ML IV SCH (21:00)
[2020-02-28] MEDS: Norepinephrine Bitartrate 16 MG in D5W 500ml 550 ML IV SCH (23:00)
[2020-02-29] VITALS (30 sets, daily range): BP systolic 88–134; BP diastolic 43–72
[2020-02-29 05:19] LABS: HEMATOCRIT 22.5 % (37.0-47.0); HEMOGLOBIN 7.8 G/DL (12.0-16.0); MEAN CORPUSCULAR VOLUME 89 FL (80-99); PLATELET COUNT 147 K/UL (150-450); RED BLOOD COUNT 2.52 M/UL (4.20-5.40); RED CELL DISTRIBUTION WIDTH 11.3 % (11.6-14.8); WHITE BLOOD COUNT 11.4 K/UL (4.8-10.8)
[2020-02-29] MEDS: metroNIDAZOLE 500mg tab GT SCH ×3 (05:33→22:16)
[2020-02-29] MEDS: Midodrine 10mg tab GT SCH ×3 (05:34→22:16)
[2020-02-29 05:41] LABS: ALANINE AMINOTRANSFERASE 38 U/L (12-78); ALBUMIN/GLOBULIN RATIO 0.6 (1.0-2.7); ALKALINE PHOSPHATASE 208 U/L (46-116); ANION GAP 6 mmol/L (5-15); ASPARTATE AMINO TRANSFERASE 39 U/L (15-37); BILIRUBIN,TOTAL 0.6 MG/DL (0.2-1.0); BLOOD UREA NITROGEN 11 mg/dL (7-18); CALCIUM 7.8 MG/DL (8.5-10.1); CARBON DIOXIDE 28 MMOL/L (21-32); CHLORIDE 108 MMOL/L (98-107); CREATININE 0.8 MG/DL (0.55-1.30); POTASSIUM 3.7 MMOL/L (3.5-5.1); SODIUM 142 MMOL/L (136-145)
[2020-02-29 05:45] LABS: PHOSPHORUS 3.3 MG/DL (2.5-4.9)
[2020-02-29] MEDS: Levofloxacin 750mg tab GT SCH (08:31)
[2020-02-29] MEDS: levETIRAcetam 500mg/NS100ml 100 ML IVPB SCH ×2 (08:32→21:19)
--- NOTE | 2020-02-29 10:23 | Nephrology Progress Note ---
Assessment/Plan Problem List: (1) Electrolyte imbalance (2) Elevated liver enzymes (3) Respiratory failure (4) Hypoalbuminemia (5) Proteinuria (6) Leukocytosis Assessment HypoKalemia Proteinuria, hypoalbuminemia, BUN and creatinine within normal range Chronic respiratory failure Status post left pneumothorax with chest tube in place Transaminitis Leukocytosis Sepsis, bacteremia with gram-positive cocci Anoxic encephalopathy Seizure disorder Penicillin allergy Hypertension Plan February 28: Electrolytes within normal limit. Dilantin level somewhat low. Will adjust Dilantin dose. February 27: Potassium and phosphate supplement. Magnesium supplement. C. difficile negative. Check Dilantin level tomorrow February 26: Potassium is low again most likely due to diarrhea Will stop IV Reglan Will order stool for C. difficile Continue adjusting Dilantin level and continue on Midodrine Discussed with RN February 25: More potassium and magnesium supplement today Increase GT feeding Adjust Dilantin dose Increase midodrine Continue to monitor her electrolytes and renal parameters Discussed with RN Per orders February 24: Today's lab results noted. Serum potassium now within acceptable range GT tube is now clamped will start GT feeding. Continue IV Reglan. DC IV fluid and IV Lasix. Monitor electrolytes and renal parameters. Midodrine through GT tube for blood pressure below 100 systolic Discussed with RN February 23: We will clamp the GT and disconnected from suction Increase Protonix to every 12 hours IV IV Reglan 100 mEq of KCl intravenously Continue to monitor electrolytes Discussed with RN February 22: Low potassium is replaced intravenously and via GT Stool for C. difficile sent Will monitor electrolytes Continue per consultants regarding normalizing LFTs and underlying sepsis February 21: Leukocytosis worsened, Blood pressure borderline low LFTs remain elevated Abnormal magnesium potassium and phosphorus on the can panel Supplements for potassium magnesium and phosphorus ordered and continue as needed Continue to check calcium and phosphorus and liver function tests Continue per ID and pulmonary Keep the blood pressure and blood sugar in check Per orders Subjective ROS Limited/Unobtainable: Yes Objective Objective Last 24 Hour Vital Signs Date Time Temp Pulse Resp B/P (MAP) Pulse Ox O2 Delivery O2 Flow Rate FiO2 02/29/20 09:11 89 20 40 02/29/20 09:00 102 22 106/72 (83) 100 02/29/20 08:00 40 02/29/20 08:00 80 20 103/61 (75) 100 02/29/20 08:00 99.5 80 20 103/61 (75) 100 02/29/20 08:00 Mechanical Ventilator Mechanical Ventilator 02/29/20 08:00 78 02/29/20 07:46 100 02/29/20 07:43 103 20 40 02/29/20 07:30 97 22 103/53 (70) 99 02/29/20 07:00 80 20 101/56 (71) 99 02/29/20 06:30 83 20 113/50 (71) 100 02/29/20 06:30 94 21 02/29/20 06:00 85 20 118/63 (81) 100 02/29/20 05:06 93 20 40 02/29/20 05:00 91 20 109/58 (75) 100 02/29/20 04:00 99.0 98 20 109/56 (73) 99 02/29/20 04:00 40 02/29/20 04:00 90 02/29/20 04:00 Mechanical Ventilator Mechanical Ventilator 02/29/20 03:30 87 20 103/49 (67) 100 02/29/20 03:02 92 20 40 02/29/20 03:00 88 20 109/56 (73) 100 02/29/20 02:30 80 20 88/43 (58) 100 02/29/20 02:00 83 20 110/60 (77) 100 02/29/20 01:10 76 20 40 02/29/20 01:00 95 20 105/58 (74) 99 02/29/20 00:30 85 20 107/51 (69) 100 02/29/20 00:00 Mechanical Ventilator Mechanical Ventilator 02/29/20 00:00 97 02/29/20 00:00 98.8 85 20 118/59 (78) 100 02/29/20 00:00 40 02/28/20 23:30 89 20 111/54 (73) 98 02/28/20 23:08 100 20 40 02/28/20 23:00 90 20 111/58 (75) 99 02/28/20 23:00 112/65 02/28/20 22:00 98 20 116/62 (80) 99 02/28/20 21:00 97 20 111/61 (78) 99 02/28/20 21:00 118/56 02/28/20 20:00 102 20 112/58 (76) 100 02/28/20 20:00 Mechanical Ventilator Mechanical Ventilator 02/28/20 20:00 95 02/28/20 20:00 40 02/28/20 19:12 99 21 40 02/28/20 18:00 99.4 104 19 130/60 (83) 100 02/28/20 17:30 100 20 103/65 (78) 100 02/28/20 17:00 98 21 110/56 (74) 100 02/28/20 16:30 98 22 117/52 (73) 100 02/28/20 16:00 96 02/28/20 16:00 94 20 105/50 (68) 100 02/28/20 16:00 Mechanical Ventilator Mechanical Ventilator 02/28/20 16:00 40 02/28/20 15:30 101 20 108/55 (72) 99 02/28/20 15:00 98 25 40 02/28/20 15:00 100 21 114/62 (79) 100 02/28/20 14:30 103 20 110/56 (74) 100 02/28/20 14:00 102 19 121/61 (81) 100 02/28/20 13:00 101 23 110/59 (76) 100 02/28/20 12:30 98.9 92 20 114/58 (76) 100 02/28/20 12:00 Mechanical Ventilator Mechanical Ventilator 02/28/20 12:00 94 02/28/20 12:00 101 21 110/58 (75) 100 02/28/20 12:00 40 02/28/20 11:30 99.0 98 20 114/60 (78) 100 02/28/20 11:12 95 20 40 02/28/20 11:00 93 20 120/66 (84) 100 02/28/20 10:30 100 23 135/67 (89) 100 Intake and Output 02/28/20 02/29/20 19:00 07:00 Intake Total 1002.720 ml 680 ml Output Total 1365 ml 1190 ml Balance -362.280 ml -510 ml Intake Free Water 60 ml 60 ml IV Total 582.720 ml 100 ml Tube Feeding 360 ml 520 ml Output Urine Total 1165 ml 1140 ml Stool Total 200 ml 50 ml Chest Tube Drainage Total 0 ml Laboratory Tests 02/29/20 04:00: White Blood Count 11.4H, Red Blood Count 2.52L, Hemoglobin 7.8L, Hematocrit 22.5L, Mean Corpuscular Volume 89, Mean Corpuscular Hemoglobin 30.9, Mean Corpuscular Hemoglobin Concent 34.8, Red Cell Distribution Width 11.3L, Platelet Count 147L, Mean Platelet Volume 8.9, Neutrophils (%) (Auto) , Lymphocytes (%) (Auto) , Monocytes (%) (Auto) , Eosinophils (%) (Auto) , Basophils (%) (Auto) , Sodium Level 142, Potassium Level 3.7, Chloride Level 108H, Carbon Dioxide Level 28, Anion Gap 6, Blood Urea Nitrogen 11, Creatinine 0.8, Estimat Glomerular Filtration Rate > 60, Glucose Level 120H, Calcium Level 7.8L, Phosphorus Level 3.3, Magnesium Level 1.9, Total Bilirubin 0.6, Aspartate Amino Transf (AST/SGOT) 39H, Alanine Aminotransferase (ALT/SGPT) 38, Alkaline Phosphatase 208H, C-Reactive Protein, Quantitative 3.3H, Total Protein 5.3L, Albumin 2.0L, Globulin 3.3, Albumin/Globulin Ratio 0.6L, Phenytoin (Dilantin) Level 2.5L Height (Feet): 5 Height (Inches): 4.00 Weight (Pounds): 159 General Appearance: no apparent distress EENT: other - On mechanical ventilator Cardiovascular: tachycardia Respiratory/Chest: decreased breath sounds Abdomen: soft, distended Objective No change Erich Link MD February 29, 2020 10:23
--- NOTE | 2020-02-29 10:43 | Pulmonology Progress Note ---
Subjective ROS Limited/Unobtainable: Yes Interval Events: None new; remains intubated Constitutional: Reports: fever, other - on cooling banket HEENT: Repors: no symptoms Respiratory: Reports: no symptoms Cardiovascular: Reports: no symptoms Gastrointestinal/Abdominal: Reports: diarrhea Allergies: Coded Allergies: PENICILLINS (Verified Allergy, Unknown, 02/14/18) Objective Last 24 Hour Vital Signs Date Time Temp Pulse Resp B/P (MAP) Pulse Ox O2 Delivery O2 Flow Rate FiO2 02/29/20 10:00 95 19 105/61 (76) 99 02/29/20 09:11 89 20 40 02/29/20 09:00 102 22 106/72 (83) 100 02/29/20 08:00 40 02/29/20 08:00 80 20 103/61 (75) 100 02/29/20 08:00 99.5 80 20 103/61 (75) 100 02/29/20 08:00 Mechanical Ventilator Mechanical Ventilator 02/29/20 08:00 78 02/29/20 07:46 100 02/29/20 07:43 103 20 40 02/29/20 07:30 97 22 103/53 (70) 99 02/29/20 07:00 80 20 101/56 (71) 99 02/29/20 06:30 83 20 113/50 (71) 100 02/29/20 06:30 94 21 02/29/20 06:00 85 20 118/63 (81) 100 02/29/20 05:06 93 20 40 02/29/20 05:00 91 20 109/58 (75) 100 02/29/20 04:00 99.0 98 20 109/56 (73) 99 02/29/20 04:00 40 02/29/20 04:00 90 02/29/20 04:00 Mechanical Ventilator Mechanical Ventilator 02/29/20 03:30 87 20 103/49 (67) 100 02/29/20 03:02 92 20 40 02/29/20 03:00 88 20 109/56 (73) 100 02/29/20 02:30 80 20 88/43 (58) 100 02/29/20 02:00 83 20 110/60 (77) 100 02/29/20 01:10 76 20 40 02/29/20 01:00 95 20 105/58 (74) 99 02/29/20 00:30 85 20 107/51 (69) 100 02/29/20 00:00 Mechanical Ventilator Mechanical Ventilator 02/29/20 00:00 97 02/29/20 00:00 98.8 85 20 118/59 (78) 100 02/29/20 00:00 40 02/28/20 23:30 89 20 111/54 (73) 98 02/28/20 23:08 100 20 40 02/28/20 23:00 90 20 111/58 (75) 99 02/28/20 23:00 112/65 02/28/20 22:00 98 20 116/62 (80) 99 02/28/20 21:00 97 20 111/61 (78) 99 02/28/20 21:00 118/56 02/28/20 20:00 102 20 112/58 (76) 100 02/28/20 20:00 Mechanical Ventilator Mechanical Ventilator 02/28/20 20:00 95 02/28/20 20:00 40 02/28/20 19:12 99 21 40 02/28/20 18:00 99.4 104 19 130/60 (83) 100 02/28/20 17:30 100 20 103/65 (78) 100 02/28/20 17:00 98 21 110/56 (74) 100 02/28/20 16:30 98 22 117/52 (73) 100 02/28/20 16:00 96 02/28/20 16:00 94 20 105/50 (68) 100 02/28/20 16:00 Mechanical Ventilator Mechanical Ventilator 02/28/20 16:00 40 02/28/20 15:30 101 20 108/55 (72) 99 02/28/20 15:00 98 25 40 02/28/20 15:00 100 21 114/62 (79) 100 02/28/20 14:30 103 20 110/56 (74) 100 02/28/20 14:00 102 19 121/61 (81) 100 02/28/20 13:00 101 23 110/59 (76) 100 02/28/20 12:30 98.9 92 20 114/58 (76) 100 02/28/20 12:00 Mechanical Ventilator Mechanical Ventilator 02/28/20 12:00 94 02/28/20 12:00 101 21 110/58 (75) 100 02/28/20 12:00 40 02/28/20 11:30 99.0 98 20 114/60 (78) 100 02/28/20 11:12 95 20 40 02/28/20 11:00 93 20 120/66 (84) 100 Intake and Output 02/28/20 02/29/20 19:00 07:00 Intake Total 1002.720 ml 680 ml Output Total 1365 ml 1190 ml Balance -362.280 ml -510 ml Intake Free Water 60 ml 60 ml IV Total 582.720 ml 100 ml Tube Feeding 360 ml 520 ml Output Urine Total 1165 ml 1140 ml Stool Total 200 ml 50 ml Chest Tube Drainage Total 0 ml General Appearance: no acute distress HEENT: normocephalic Respiratory: chest wall non-tender, lungs clear Cardiovascular: normal peripheral pulses Abdomen: normal bowel sounds Microbiology Date/Time Source Procedure Growth Status 02/28/20 04:30 Stool Clostridium difficile Toxin Assay - Final Complete Laboratory Tests 02/29/20 04:00: White Blood Count 11.4H, Red Blood Count 2.52L, Hemoglobin 7.8L, Hematocrit 22.5L, Mean Corpuscular Volume 89, Mean Corpuscular Hemoglobin 30.9, Mean Corpuscular Hemoglobin Concent 34.8, Red Cell Distribution Width 11.3L, Platelet Count 147L, Mean Platelet Volume 8.9, Neutrophils (%) (Auto) , Lymphocytes (%) (Auto) , Monocytes (%) (Auto) , Eosinophils (%) (Auto) , Basophils (%) (Auto) , Sodium Level 142, Potassium Level 3.7, Chloride Level 108H, Carbon Dioxide Level 28, Anion Gap 6, Blood Urea Nitrogen 11, Creatinine 0.8, Estimat Glomerular Filtration Rate > 60, Glucose Level 120H, Calcium Level 7.8L, Phosphorus Level 3.3, Magnesium Level 1.9, Total Bilirubin 0.6, Aspartate Amino Transf (AST/SGOT) 39H, Alanine Aminotransferase (ALT/SGPT) 38, Alkaline Phosphatase 208H, C-Reactive Protein, Quantitative 3.3H, Total Protein 5.3L, Albumin 2.0L, Globulin 3.3, Albumin/Globulin Ratio 0.6L, Phenytoin (Dilantin) Level 2.5L Current Medications Medications (Trade) Dose Ordered Sig/Bere Route PRN Reason Start Time Stop Time Status Last Admin Dose Admin Acetaminophen (Tylenol) 650 mg Q4H PRN GT Temp >100.5 02/19/20 22:00 03/20/20 21:59 02/26/20 15:50 Chlorhexidine Gluconate (Jane-Hex 2%) 1 applic DAILY@2000 TOPIC 02/20/20 20:00 05/20/20 19:59 02/28/20 20:29 Dopamine HCl/ Dextrose 250 ml @ 0 mls/hr Q24H IV 02/19/20 21:00 05/19/20 20:59 02/21/20 03:10 Famotidine (Pepcid) 20 mg BID GT 02/27/20 18:00 05/27/20 17:59 02/29/20 08:31 Levetiracetam 100 ml @ 400 mls/hr Q12HR IVPB 02/20/20 09:00 05/20/20 08:59 02/29/20 08:32 Levofloxacin (Levaquin) 750 mg DAILY GT 02/27/20 10:15 03/05/20 10:14 02/29/20 08:31 Metronidazole (Flagyl) 500 mg Q8HR GT 02/27/20 14:00 03/05/20 13:59 02/29/20 05:33 Midodrine (Pro-Amatine) 10 mg Q8HR GT 02/27/20 14:00 05/25/20 13:59 02/29/20 05:34 Morphine Sulfate (Morphine Sulfate) 2 mg Q4H PRN IVP For Pain 02/23/20 12:15 03/01/20 12:14 Norepinephrine Bitartrate 16 mg/ Dextrose 566 ml @ 0 mls/hr Q24H IV 02/22/20 23:00 03/23/20 22:59 02/24/20 00:12 Phenytoin (Dilantin) 200 mg Q12H IVP 02/29/20 21:00 03/27/20 20:59 Phenytoin 300 mg/ Sodium Chloride 116 ml @ 120 mls/hr ONCE ONCE IVPB 02/29/20 11:30 02/29/20 12:27 Potassium Chloride (K-Dur) 20 meq BID GT 02/27/20 18:00 05/24/20 17:59 02/29/20 08:31 Assessment/Plan Assessment/Plan IMPRESSION: 1. Status post left pneumothorax with chest tube in place. 2. Tracheal bleeding, status post removal. 3. Respiratory failure, status post orotracheal intubation. 4. Transaminitis. 5. Leukocytosis. 6. Chronic encephalopathy. 7. Chronic respiratory failure. DISCUSSION: Continue assist-control mechanical ventilation. I will decrease PEEP as much as possible. Keep chest tube to suction. Broad-spectrum antibiotics. Enteral feedings. Continue medications. Follow carefully. Seen by surgery; will need trach revision Surgery notes reviewed; family discussion noted Family reportedly considering terminal extubation Will monitor Febrile; cooling measures noted Would not wean; has chronic resp failure Tarun Ellis Omar Syed MD February 29, 2020 10:43
[2020-02-29] MEDS ORDERED: PHENYTOIN IVPB ONE ×2 (10:45→11:30)
[2020-02-29] MEDS ORDERED: NS IVPB ONE ×2 (10:45→11:30)
--- NOTE | 2020-02-29 10:58 | Infectious Diseases Prog Note ---
"Assessment/Plan Assessment/Plan antibiotics : levoquin, flagyl A 1. pseudomonas | stenotrophomonas pneumonia COVID 19 test negative x 2 2. respiratory failure 3. shock improving 4. + blood cultures with coag neg staph likely contaminated 5. pneumothorax 6. hypertension 7. hydrocephalus 8, leucocytosis improving P 1. continue levoquin, flagyl 7 more days 2. will follow up culture Subjective ROS Limited/Unobtainable: Yes Allergies: Coded Allergies: PENICILLINS (Verified Allergy, Unknown, 02/14/18) Objective Vital Signs Last 24 Hour Vital Signs Date Time Temp Pulse Resp B/P (MAP) Pulse Ox O2 Delivery O2 Flow Rate FiO2 02/29/20 10:00 95 19 105/61 (76) 99 02/29/20 09:11 89 20 40 02/29/20 09:00 102 22 106/72 (83) 100 02/29/20 08:00 40 02/29/20 08:00 80 20 103/61 (75) 100 02/29/20 08:00 99.5 80 20 103/61 (75) 100 02/29/20 08:00 Mechanical Ventilator Mechanical Ventilator 02/29/20 08:00 78 02/29/20 07:46 100 02/29/20 07:43 103 20 40 02/29/20 07:30 97 22 103/53 (70) 99 02/29/20 07:00 80 20 101/56 (71) 99 02/29/20 06:30 83 20 113/50 (71) 100 02/29/20 06:30 94 21 02/29/20 06:00 85 20 118/63 (81) 100 02/29/20 05:06 93 20 40 02/29/20 05:00 91 20 109/58 (75) 100 02/29/20 04:00 99.0 98 20 109/56 (73) 99 02/29/20 04:00 40 02/29/20 04:00 90 02/29/20 04:00 Mechanical Ventilator Mechanical Ventilator 02/29/20 03:30 87 20 103/49 (67) 100 02/29/20 03:02 92 20 40 02/29/20 03:00 88 20 109/56 (73) 100 02/29/20 02:30 80 20 88/43 (58) 100 02/29/20 02:00 83 20 110/60 (77) 100 02/29/20 01:10 76 20 40 02/29/20 01:00 95 20 105/58 (74) 99 02/29/20 00:30 85 20 107/51 (69) 100 02/29/20 00:00 Mechanical Ventilator Mechanical Ventilator 02/29/20 00:00 97 02/29/20 00:00 98.8 85 20 118/59 (78) 100 02/29/20 00:00 40 02/28/20 23:30 89 20 111/54 (73) 98 02/28/20 23:08 100 20 40 02/28/20 23:00 90 20 111/58 (75) 99 02/28/20 23:00 112/65 02/28/20 22:00 98 20 116/62 (80) 99 02/28/20 21:00 97 20 111/61 (78) 99 02/28/20 21:00 118/56 02/28/20 20:00 102 20 112/58 (76) 100 02/28/20 20:00 Mechanical Ventilator Mechanical Ventilator 02/28/20 20:00 95 02/28/20 20:00 40 02/28/20 19:12 99 21 40 02/28/20 18:00 99.4 104 19 130/60 (83) 100 02/28/20 17:30 100 20 103/65 (78) 100 02/28/20 17:00 98 21 110/56 (74) 100 02/28/20 16:30 98 22 117/52 (73) 100 02/28/20 16:00 96 02/28/20 16:00 94 20 105/50 (68) 100 02/28/20 16:00 Mechanical Ventilator Mechanical Ventilator 02/28/20 16:00 40 02/28/20 15:30 101 20 108/55 (72) 99 02/28/20 15:00 98 25 40 02/28/20 15:00 100 21 114/62 (79) 100 02/28/20 14:30 103 20 110/56 (74) 100 02/28/20 14:00 102 19 121/61 (81) 100 02/28/20 13:00 101 23 110/59 (76) 100 02/28/20 12:30 98.9 92 20 114/58 (76) 100 02/28/20 12:00 Mechanical Ventilator Mechanical Ventilator 02/28/20 12:00 94 02/28/20 12:00 101 21 110/58 (75) 100 02/28/20 12:00 40 02/28/20 11:30 99.0 98 20 114/60 (78) 100 02/28/20 11:12 95 20 40 02/28/20 11:00 93 20 120/66 (84) 100 Height (Feet): 5 Height (Inches): 4.00 Weight (Pounds): 159 HEENT: other - intubated Respiratory/Chest: lungs clear, other - left CT Cardiovascular: normal rate, regular rhythm, no gallop/murmur Abdomen: soft, non tender, other - Gt Extremities: no edema, other - right groin catheter Microbiology Date/Time Source Procedure Growth Status 02/28/20 04:30 Stool Clostridium difficile Toxin Assay - Final Complete Laboratory Tests Test 02/29/20 04:00 White Blood Count 11.4 K/UL (4.8-10.8) H Red Blood Count 2.52 M/UL (4.20-5.40) L Hemoglobin 7.8 G/DL (12.0-16.0) L Hematocrit 22.5 % (37.0-47.0) L Mean Corpuscular Volume 89 FL (80-99) Mean Corpuscular Hemoglobin 30.9 PG (27.0-31.0) Mean Corpuscular Hemoglobin Concent 34.8 G/DL (32.0-36.0) Red Cell Distribution Width 11.3 % (11.6-14.8) L Platelet Count 147 K/UL (150-450) L Mean Platelet Volume 8.9 FL (6.5-10.1) Neutrophils (%) (Auto) % (45.0-75.0) Lymphocytes (%) (Auto) % (20.0-45.0) Monocytes (%) (Auto) % (1.0-10.0) Eosinophils (%) (Auto) % (0.0-3.0) Basophils (%) (Auto) % (0.0-2.0) Sodium Level 142 MMOL/L (136-145) Potassium Level 3.7 MMOL/L (3.5-5.1) Chloride Level 108 MMOL/L (98-107) H Carbon Dioxide Level 28 MMOL/L (21-32) Anion Gap 6 mmol/L (5-15) Blood Urea Nitrogen 11 mg/dL (7-18) Creatinine 0.8 MG/DL (0.55-1.30) Estimat Glomerular Filtration Rate > 60 mL/min (>60) Glucose Level 120 MG/DL (74-106) H Calcium Level 7.8 MG/DL (8.5-10.1) L Phosphorus Level 3.3 MG/DL (2.5-4.9) Magnesium Level 1.9 MG/DL (1.8-2.4) Total Bilirubin 0.6 MG/DL (0.2-1.0) Aspartate Amino Transf (AST/SGOT) 39 U/L (15-37) H Alanine Aminotransferase (ALT/SGPT) 38 U/L (12-78) Alkaline Phosphatase 208 U/L (46-116) H C-Reactive Protein, Quantitative 3.3 mg/dL (0.00-0.90) H Total Protein 5.3 G/DL (6.4-8.2) L Albumin 2.0 G/DL (3.4-5.0) L Globulin 3.3 g/dL Albumin/Globulin Ratio 0.6 (1.0-2.7) L Phenytoin (Dilantin) Level 2.5 ug/mL (10-20) L Current Medications Medications (Trade) Dose Ordered Sig/Bere Route PRN Reason Start Time Stop Time Status Last Admin Dose Admin Acetaminophen (Tylenol) 650 mg Q4H PRN GT Temp >100.5 02/19/20 22:00 03/20/20 21:59 02/26/20 15:50 Chlorhexidine Gluconate (Jane-Hex 2%) 1 applic DAILY@2000 TOPIC 02/20/20 20:00 05/20/20 19:59 02/28/20 20:29 Dopamine HCl/ Dextrose 250 ml @ 0 mls/hr Q24H IV 02/19/20 21:00 05/19/20 20:59 02/21/20 03:10 Famotidine (Pepcid) 20 mg BID GT 02/27/20 18:00 05/27/20 17:59 02/29/20 08:31 Levetiracetam 100 ml @ 400 mls/hr Q12HR IVPB 02/20/20 09:00 05/20/20 08:59 02/29/20 08:32 Levofloxacin (Levaquin) 750 mg DAILY GT 02/27/20 10:15 03/05/20 10:14 02/29/20 08:31 Metronidazole (Flagyl) 500 mg Q8HR GT 02/27/20 14:00 03/05/20 13:59 02/29/20 05:33 Midodrine (Pro-Amatine) 10 mg Q8HR GT 02/27/20 14:00 05/25/20 13:59 02/29/20 05:34 Morphine Sulfate (Morphine Sulfate) 2 mg Q4H PRN IVP For Pain 02/23/20 12:15 03/01/20 12:14 Norepinephrine Bitartrate 16 mg/ Dextrose 566 ml @ 0 mls/hr Q24H IV 02/22/20 23:00 03/23/20 22:59 02/24/20 00:12 Phenytoin (Dilantin) 200 mg Q12H IVP 02/29/20 21:00 03/27/20 20:59 Phenytoin 300 mg/ Sodium Chloride 116 ml @ 120 mls/hr ONCE ONCE IVPB 02/29/20 11:30 02/29/20 12:27 Potassium Chloride (K-Dur) 20 meq BID GT 02/27/20 18:00 05/24/20 17:59 02/29/20 08:31 Lulu Gurrola MD February 29, 2020 10:58"
--- NOTE | 2020-02-29 12:05 | Cardiac Electrophysiology PN ---
Assessment/Plan Assessment/Plan 1. Respiratory failure. Orally intubated on the vent. Fio2 40% and PEEP 5. Fu by Dr. Haile. Terminal extubation vs new trach per sister pending. Covid now negative x 2 2. Paroxysmal atrial fibrillation, off anticoagulation in view of bleeding from the trach site. Converted to SR 3. Left Pneumothorax, status post Left chest tube placement to water seal on antibiotic. 4. S/P Septic Shock , off Levophed 5. Dysphagia, status post PEG placement. 6. Dementia and Chronic encephalopathy. 7. DNR DW RN Subjective Subjective In ICU on the vent and off pressors. Trach is covered. Covid negative x2. Off Covid isolation Sister hasn't called yet to make decision re terminal extubation vs Re- tracheostomy Objective Last 24 Hour Vital Signs Date Time Temp Pulse Resp B/P (MAP) Pulse Ox O2 Delivery O2 Flow Rate FiO2 02/29/20 11:32 88 20 40 02/29/20 11:00 100 21 116/61 (79) 100 02/29/20 10:00 95 19 105/61 (76) 99 02/29/20 09:11 89 20 40 02/29/20 09:00 102 22 106/72 (83) 100 02/29/20 08:00 40 02/29/20 08:00 80 20 103/61 (75) 100 02/29/20 08:00 99.5 80 20 103/61 (75) 100 02/29/20 08:00 Mechanical Ventilator Mechanical Ventilator 02/29/20 08:00 78 02/29/20 07:46 100 02/29/20 07:43 103 20 40 02/29/20 07:30 97 22 103/53 (70) 99 02/29/20 07:00 80 20 101/56 (71) 99 02/29/20 06:30 83 20 113/50 (71) 100 02/29/20 06:30 94 21 02/29/20 06:00 85 20 118/63 (81) 100 02/29/20 05:06 93 20 40 02/29/20 05:00 91 20 109/58 (75) 100 02/29/20 04:00 99.0 98 20 109/56 (73) 99 02/29/20 04:00 40 02/29/20 04:00 90 02/29/20 04:00 Mechanical Ventilator Mechanical Ventilator 02/29/20 03:30 87 20 103/49 (67) 100 02/29/20 03:02 92 20 40 02/29/20 03:00 88 20 109/56 (73) 100 02/29/20 02:30 80 20 88/43 (58) 100 02/29/20 02:00 83 20 110/60 (77) 100 02/29/20 01:10 76 20 40 02/29/20 01:00 95 20 105/58 (74) 99 02/29/20 00:30 85 20 107/51 (69) 100 02/29/20 00:00 Mechanical Ventilator Mechanical Ventilator 02/29/20 00:00 97 02/29/20 00:00 98.8 85 20 118/59 (78) 100 02/29/20 00:00 40 02/28/20 23:30 89 20 111/54 (73) 98 02/28/20 23:08 100 20 40 02/28/20 23:00 90 20 111/58 (75) 99 02/28/20 23:00 112/65 02/28/20 22:00 98 20 116/62 (80) 99 02/28/20 21:00 97 20 111/61 (78) 99 02/28/20 21:00 118/56 02/28/20 20:00 102 20 112/58 (76) 100 02/28/20 20:00 Mechanical Ventilator Mechanical Ventilator 02/28/20 20:00 95 02/28/20 20:00 40 02/28/20 19:12 99 21 40 02/28/20 18:00 99.4 104 19 130/60 (83) 100 02/28/20 17:30 100 20 103/65 (78) 100 02/28/20 17:00 98 21 110/56 (74) 100 02/28/20 16:30 98 22 117/52 (73) 100 02/28/20 16:00 96 02/28/20 16:00 94 20 105/50 (68) 100 02/28/20 16:00 Mechanical Ventilator Mechanical Ventilator 02/28/20 16:00 40 02/28/20 15:30 101 20 108/55 (72) 99 02/28/20 15:00 98 25 40 02/28/20 15:00 100 21 114/62 (79) 100 02/28/20 14:30 103 20 110/56 (74) 100 02/28/20 14:00 102 19 121/61 (81) 100 02/28/20 13:00 101 23 110/59 (76) 100 02/28/20 12:30 98.9 92 20 114/58 (76) 100 Intake and Output 02/28/20 02/29/20 19:00 07:00 Intake Total 1002.720 ml 680 ml Output Total 1365 ml 1190 ml Balance -362.280 ml -510 ml Intake Free Water 60 ml 60 ml IV Total 582.720 ml 100 ml Tube Feeding 360 ml 520 ml Output Urine Total 1165 ml 1140 ml Stool Total 200 ml 50 ml Chest Tube Drainage Total 0 ml Laboratory Tests Test 02/29/20 04:00 White Blood Count 11.4 K/UL (4.8-10.8) H Red Blood Count 2.52 M/UL (4.20-5.40) L Hemoglobin 7.8 G/DL (12.0-16.0) L Hematocrit 22.5 % (37.0-47.0) L Mean Corpuscular Volume 89 FL (80-99) Mean Corpuscular Hemoglobin 30.9 PG (27.0-31.0) Mean Corpuscular Hemoglobin Concent 34.8 G/DL (32.0-36.0) Red Cell Distribution Width 11.3 % (11.6-14.8) L Platelet Count 147 K/UL (150-450) L Mean Platelet Volume 8.9 FL (6.5-10.1) Neutrophils (%) (Auto) % (45.0-75.0) Lymphocytes (%) (Auto) % (20.0-45.0) Monocytes (%) (Auto) % (1.0-10.0) Eosinophils (%) (Auto) % (0.0-3.0) Basophils (%) (Auto) % (0.0-2.0) Sodium Level 142 MMOL/L (136-145) Potassium Level 3.7 MMOL/L (3.5-5.1) Chloride Level 108 MMOL/L (98-107) H Carbon Dioxide Level 28 MMOL/L (21-32) Anion Gap 6 mmol/L (5-15) Blood Urea Nitrogen 11 mg/dL (7-18) Creatinine 0.8 MG/DL (0.55-1.30) Estimat Glomerular Filtration Rate > 60 mL/min (>60) Glucose Level 120 MG/DL (74-106) H Calcium Level 7.8 MG/DL (8.5-10.1) L Phosphorus Level 3.3 MG/DL (2.5-4.9) Magnesium Level 1.9 MG/DL (1.8-2.4) Total Bilirubin 0.6 MG/DL (0.2-1.0) Aspartate Amino Transf (AST/SGOT) 39 U/L (15-37) H Alanine Aminotransferase (ALT/SGPT) 38 U/L (12-78) Alkaline Phosphatase 208 U/L (46-116) H C-Reactive Protein, Quantitative 3.3 mg/dL (0.00-0.90) H Total Protein 5.3 G/DL (6.4-8.2) L Albumin 2.0 G/DL (3.4-5.0) L Globulin 3.3 g/dL Albumin/Globulin Ratio 0.6 (1.0-2.7) L Phenytoin (Dilantin) Level 2.5 ug/mL (10-20) L Microbiology Date/Time Source Procedure Growth Status 02/28/20 04:30 Stool Clostridium difficile Toxin Assay - Final Complete Objective HEAD AND NECK: Orally intubated and tracheostomy is covered. LUNGS: Coarse rhonchi. CARDIOVASCULAR: Regular S1 and S2 with no gallop. She has a chest tube. ABDOMEN: Soft. EXTREMITIES: 1+ pitting edema.Contracted Dat Oh MD February 29, 2020 12:05
--- NOTE | 2020-02-29 13:41 | Surgery Progress Note ---
Surgery Progress Note Subjective Additional Comments discussed with team. number for sister Vee received spoke with Vee. this is 4th year when her sister has been this ill without improvement family has spoken and have decided for comfort care await decision on if they will come bedside for terminal extubation or not Objective Last 24 Hour Vital Signs Date Time Temp Pulse Resp B/P (MAP) Pulse Ox O2 Delivery O2 Flow Rate FiO2 02/29/20 12:45 84 20 40 02/29/20 12:00 Mechanical Ventilator Mechanical Ventilator 02/29/20 12:00 99.5 88 20 99/48 (65) 100 02/29/20 11:32 88 20 40 02/29/20 11:00 100 21 116/61 (79) 100 02/29/20 10:00 95 19 105/61 (76) 99 02/29/20 09:11 89 20 40 02/29/20 09:00 102 22 106/72 (83) 100 02/29/20 08:00 40 02/29/20 08:00 80 20 103/61 (75) 100 02/29/20 08:00 99.5 80 20 103/61 (75) 100 02/29/20 08:00 Mechanical Ventilator Mechanical Ventilator 02/29/20 08:00 78 02/29/20 07:46 100 02/29/20 07:43 103 20 40 02/29/20 07:30 97 22 103/53 (70) 99 02/29/20 07:00 80 20 101/56 (71) 99 02/29/20 06:30 83 20 113/50 (71) 100 02/29/20 06:30 94 21 02/29/20 06:00 85 20 118/63 (81) 100 02/29/20 05:06 93 20 40 02/29/20 05:00 91 20 109/58 (75) 100 02/29/20 04:00 99.0 98 20 109/56 (73) 99 02/29/20 04:00 40 02/29/20 04:00 90 02/29/20 04:00 Mechanical Ventilator Mechanical Ventilator 02/29/20 03:30 87 20 103/49 (67) 100 02/29/20 03:02 92 20 40 02/29/20 03:00 88 20 109/56 (73) 100 02/29/20 02:30 80 20 88/43 (58) 100 02/29/20 02:00 83 20 110/60 (77) 100 02/29/20 01:10 76 20 40 02/29/20 01:00 95 20 105/58 (74) 99 02/29/20 00:30 85 20 107/51 (69) 100 02/29/20 00:00 Mechanical Ventilator Mechanical Ventilator 02/29/20 00:00 97 02/29/20 00:00 98.8 85 20 118/59 (78) 100 02/29/20 00:00 40 02/28/20 23:30 89 20 111/54 (73) 98 02/28/20 23:08 100 20 40 02/28/20 23:00 90 20 111/58 (75) 99 02/28/20 23:00 112/65 02/28/20 22:00 98 20 116/62 (80) 99 02/28/20 21:00 97 20 111/61 (78) 99 02/28/20 21:00 118/56 02/28/20 20:00 102 20 112/58 (76) 100 02/28/20 20:00 Mechanical Ventilator Mechanical Ventilator 02/28/20 20:00 95 02/28/20 20:00 40 02/28/20 19:12 99 21 40 02/28/20 18:00 99.4 104 19 130/60 (83) 100 02/28/20 17:30 100 20 103/65 (78) 100 02/28/20 17:00 98 21 110/56 (74) 100 02/28/20 16:30 98 22 117/52 (73) 100 02/28/20 16:00 96 02/28/20 16:00 94 20 105/50 (68) 100 02/28/20 16:00 Mechanical Ventilator Mechanical Ventilator 02/28/20 16:00 40 02/28/20 15:30 101 20 108/55 (72) 99 02/28/20 15:00 98 25 40 02/28/20 15:00 100 21 114/62 (79) 100 02/28/20 14:30 103 20 110/56 (74) 100 02/28/20 14:00 102 19 121/61 (81) 100 I&O Intake and Output 02/28/20 02/29/20 19:00 07:00 Intake Total 1002.720 ml 680 ml Output Total 1365 ml 1190 ml Balance -362.280 ml -510 ml Intake Free Water 60 ml 60 ml IV Total 582.720 ml 100 ml Tube Feeding 360 ml 520 ml Output Urine Total 1165 ml 1140 ml Stool Total 200 ml 50 ml Chest Tube Drainage Total 0 ml Dressing: other Wound: other Drains: other Cardiovascular: RSR Respiratory: decreased breath sounds Abdomen: soft, non-tender, present bowel sounds Extremities: no cyanosis Laboratory Tests Test 02/29/20 04:00 White Blood Count 11.4 K/UL (4.8-10.8) H Red Blood Count 2.52 M/UL (4.20-5.40) L Hemoglobin 7.8 G/DL (12.0-16.0) L Hematocrit 22.5 % (37.0-47.0) L Mean Corpuscular Volume 89 FL (80-99) Mean Corpuscular Hemoglobin 30.9 PG (27.0-31.0) Mean Corpuscular Hemoglobin Concent 34.8 G/DL (32.0-36.0) Red Cell Distribution Width 11.3 % (11.6-14.8) L Platelet Count 147 K/UL (150-450) L Mean Platelet Volume 8.9 FL (6.5-10.1) Neutrophils (%) (Auto) % (45.0-75.0) Lymphocytes (%) (Auto) % (20.0-45.0) Monocytes (%) (Auto) % (1.0-10.0) Eosinophils (%) (Auto) % (0.0-3.0) Basophils (%) (Auto) % (0.0-2.0) Sodium Level 142 MMOL/L (136-145) Potassium Level 3.7 MMOL/L (3.5-5.1) Chloride Level 108 MMOL/L (98-107) H Carbon Dioxide Level 28 MMOL/L (21-32) Anion Gap 6 mmol/L (5-15) Blood Urea Nitrogen 11 mg/dL (7-18) Creatinine 0.8 MG/DL (0.55-1.30) Estimat Glomerular Filtration Rate > 60 mL/min (>60) Glucose Level 120 MG/DL (74-106) H Calcium Level 7.8 MG/DL (8.5-10.1) L Phosphorus Level 3.3 MG/DL (2.5-4.9) Magnesium Level 1.9 MG/DL (1.8-2.4) Total Bilirubin 0.6 MG/DL (0.2-1.0) Aspartate Amino Transf (AST/SGOT) 39 U/L (15-37) H Alanine Aminotransferase (ALT/SGPT) 38 U/L (12-78) Alkaline Phosphatase 208 U/L (46-116) H C-Reactive Protein, Quantitative 3.3 mg/dL (0.00-0.90) H Total Protein 5.3 G/DL (6.4-8.2) L Albumin 2.0 G/DL (3.4-5.0) L Globulin 3.3 g/dL Albumin/Globulin Ratio 0.6 (1.0-2.7) L Phenytoin (Dilantin) Level 2.5 ug/mL (10-20) L Plan Problems: (1) Pneumothorax Assessment & Plan: cont chest tube to water seal am cxr will monitor hold removal until decision for trach made 1. Left-sided pneumothorax, approximately 50% by volume. 2. Extensive subcutaneous emphysema throughout the chest wall and neck soft tissues bilaterally. s/p chest tube Lungs: Persistent mild increased interstitial markings. The lungs are otherwise clear without focal consolidation. Pleural space: Interval significant improvement of the left-sided pneumothorax, no longer well seen. Heart: Unremarkable. No cardiomegaly. Mediastinum: Unremarkable. Bones/joints: Unremarkable. Soft tissues: Persistent but improved subcutaneous emphysema in the chest reed and neck soft tissues bilaterally. Tubes, lines and devices: Left-sided chest tube in place, with expected positioning. Endotracheal tube tip 3.2 cm above the emerita. Telemetry leads overlie the thorax. IMPRESSION: 1. Left-sided chest tube in place, with expected positioning. 2. Interval significant improvement of the left-sided pneumothorax, which is no longer well seen. 3. Persistent mild increased interstitial markings. This is nonspecific but may suggest mild interstitial edema or a mild pneumonitis. No focal consolidation. 4. Improved subcutaneous emphysema in the chest reed and neck soft tissues bilaterally. (2) Respiratory arrest Assessment & Plan: TRACH REMOVED, SITE BLEEDING. LT CHEST TUNE TO SUCTION. FEMORAL ACCESS will plan for trach new when stable (3) Respiratory distress (4) Tracheostomy complication Assessment & Plan: trach complication intubated on support will need to revise trach once stable thank you Hold on trach revision his family is considering terminal extubation At withdrawal of care discussed with team. number for sister Vee received spoke with Vee. this is 4th year when her sister has been this ill without improvement family has spoken and have decided for comfort care await decision on if they will come bedside for terminal extubation or not Ant Lee February 29, 2020 13:41
[2020-02-29] MEDS: Dyna-Hex 2% Top Sol 2oz TOPIC SCH (19:56)
[2020-02-29] MEDS: DOPamine 400mg/250ml 250 ML IV SCH (20:54)
[2020-02-29] MEDS: Norepinephrine Bitartrate 16 MG in D5W 500ml 550 ML IV SCH (23:00)
[2020-03-01] VITALS (24 sets, daily range): BP systolic 102–130; BP diastolic 45–68
[2020-03-01] MEDS: Midodrine 10mg tab GT SCH ×3 (05:50→21:30)
[2020-03-01] MEDS: metroNIDAZOLE 500mg tab GT SCH ×3 (05:50→21:30)
[2020-03-01 06:11] LABS: BASOPHILS % (AUTO) 0.6 % (0.0-2.0); EOSINOPHILS % (AUTO) 3.4 % (0.0-3.0); HEMATOCRIT 23.4 % (37.0-47.0); LYMPHOCYTES % (AUTO) 30.2 % (20.0-45.0); MEAN CORPUSCULAR VOLUME 89 FL (80-99); MONOCYTES % (AUTO) 4.4 % (1.0-10.0); NEUTROPHILS % (AUTO) 61.5 % (45.0-75.0); PLATELET COUNT 196 K/UL (150-450); RED BLOOD COUNT 2.62 M/UL (4.20-5.40); RED CELL DISTRIBUTION WIDTH 11.8 % (11.6-14.8); WHITE BLOOD COUNT 12.1 K/UL (4.8-10.8)
[2020-03-01 06:27] LABS: ALANINE AMINOTRANSFERASE 36 U/L (12-78); ALBUMIN 2.2 G/DL (3.4-5.0); ALBUMIN/GLOBULIN RATIO 0.6 (1.0-2.7); ALKALINE PHOSPHATASE 205 U/L (46-116); ANION GAP 8 mmol/L (5-15); ASPARTATE AMINO TRANSFERASE 29 U/L (15-37); BILIRUBIN,TOTAL 0.5 MG/DL (0.2-1.0); BLOOD UREA NITROGEN 10 mg/dL (7-18); CALCIUM 8.2 MG/DL (8.5-10.1); CARBON DIOXIDE 28 MMOL/L (21-32); CHLORIDE 107 MMOL/L (98-107); CREATININE 0.9 MG/DL (0.55-1.30); PHOSPHORUS 3.6 MG/DL (2.5-4.9); POTASSIUM 3.7 MMOL/L (3.5-5.1); SODIUM 143 MMOL/L (136-145)
[2020-03-01] MEDS: Levofloxacin 750mg tab GT SCH (08:36)
[2020-03-01] MEDS: levETIRAcetam 500mg/NS100ml 100 ML IVPB SCH ×2 (08:37→20:56)
--- NOTE | 2020-03-01 10:50 | Infectious Diseases Prog Note ---
"Assessment/Plan Assessment/Plan antibiotics : levoquin, flagyl A 1. pseudomonas | stenotrophomonas pneumonia COVID 19 test negative x 2 2. respiratory failure 3. shock improving 4. + blood cultures with coag neg staph likely contaminated 5. pneumothorax 6. hypertension 7. hydrocephalus 8, leucocytosis improving P 1. continue levoquin, flagyl 6 more days 2. will follow up culture Subjective ROS Limited/Unobtainable: Yes Allergies: Coded Allergies: PENICILLINS (Verified Allergy, Unknown, 02/14/18) Objective Vital Signs Last 24 Hour Vital Signs Date Time Temp Pulse Resp B/P (MAP) Pulse Ox O2 Delivery O2 Flow Rate FiO2 03/01/20 10:00 71 20 123/61 (81) 100 03/01/20 09:00 76 20 116/62 (80) 100 03/01/20 09:00 100 03/01/20 08:00 69 03/01/20 08:00 77 21 118/60 (79) 100 03/01/20 08:00 Mechanical Ventilator Mechanical Ventilator 03/01/20 08:00 40 03/01/20 07:15 82 20 40 03/01/20 07:00 99.2 65 20 118/60 (79) 100 03/01/20 06:30 79 21 03/01/20 06:00 68 20 110/49 (69) 100 03/01/20 05:11 79 20 40 03/01/20 05:00 82 20 114/61 (78) 03/01/20 04:00 40 03/01/20 04:00 98.4 80 20 102/54 (70) 88 03/01/20 04:00 Mechanical Ventilator Mechanical Ventilator 03/01/20 04:00 88 03/01/20 03:00 82 20 40 03/01/20 03:00 75 20 105/53 (70) 100 03/01/20 02:00 88 18 122/57 (78) 100 03/01/20 01:23 68 20 40 03/01/20 01:00 96 17 109/57 (74) 100 03/01/20 00:00 Mechanical Ventilator Mechanical Ventilator 03/01/20 00:00 91 03/01/20 00:00 98.8 80 18 130/68 (88) 100 03/01/20 00:00 40 02/29/20 23:00 84 20 134/57 (82) 100 02/29/20 23:00 130/68 02/29/20 22:39 84 20 40 02/29/20 22:00 90 17 126/61 (82) 100 02/29/20 21:00 86 21 114/59 (77) 100 02/29/20 20:54 111/57 02/29/20 20:52 92 20 40 02/29/20 20:00 Mechanical Ventilator Mechanical Ventilator 02/29/20 20:00 40 02/29/20 20:00 99.0 86 20 111/57 (75) 100 02/29/20 20:00 86 02/29/20 19:10 85 20 40 02/29/20 19:00 82 20 110/52 (71) 100 02/29/20 18:30 84 20 109/58 (75) 99 02/29/20 18:00 76 20 106/49 (68) 100 02/29/20 17:12 80 20 40 02/29/20 17:00 83 20 107/53 (71) 100 02/29/20 16:00 87 02/29/20 16:00 Mechanical Ventilator Mechanical Ventilator 02/29/20 16:00 40 02/29/20 16:00 99.5 94 20 101/51 (68) 100 02/29/20 15:17 81 20 40 02/29/20 15:00 101 22 102/53 (69) 99 02/29/20 14:00 103 21 103/59 (74) 100 02/29/20 13:00 87 20 104/53 (70) 100 02/29/20 12:45 84 20 40 02/29/20 12:00 40 02/29/20 12:00 Mechanical Ventilator Mechanical Ventilator 02/29/20 12:00 99.5 88 20 99/48 (65) 100 02/29/20 12:00 88 02/29/20 11:32 88 20 40 02/29/20 11:00 100 21 116/61 (79) 100 Height (Feet): 5 Height (Inches): 4.00 Weight (Pounds): 161 HEENT: other - intubated Respiratory/Chest: lungs clear, other - left CT Cardiovascular: normal rate, regular rhythm, no gallop/murmur Abdomen: soft, non tender, other - GT Extremities: no edema, other - right groin catheter Microbiology Date/Time Source Procedure Growth Status 5/25/20 04:30 Stool Clostridium difficile Toxin Assay - Final Complete Laboratory Tests Test 03/01/20 04:00 White Blood Count 12.1 K/UL (4.8-10.8) H Red Blood Count 2.62 M/UL (4.20-5.40) L Hemoglobin 8.0 G/DL (12.0-16.0) L Hematocrit 23.4 % (37.0-47.0) L Mean Corpuscular Volume 89 FL (80-99) Mean Corpuscular Hemoglobin 30.8 PG (27.0-31.0) Mean Corpuscular Hemoglobin Concent 34.4 G/DL (32.0-36.0) Red Cell Distribution Width 11.8 % (11.6-14.8) Platelet Count 196 K/UL (150-450) Mean Platelet Volume 8.0 FL (6.5-10.1) Neutrophils (%) (Auto) 61.5 % (45.0-75.0) Lymphocytes (%) (Auto) 30.2 % (20.0-45.0) Monocytes (%) (Auto) 4.4 % (1.0-10.0) Eosinophils (%) (Auto) 3.4 % (0.0-3.0) H Basophils (%) (Auto) 0.6 % (0.0-2.0) Sodium Level 143 MMOL/L (136-145) Potassium Level 3.7 MMOL/L (3.5-5.1) Chloride Level 107 MMOL/L (98-107) Carbon Dioxide Level 28 MMOL/L (21-32) Anion Gap 8 mmol/L (5-15) Blood Urea Nitrogen 10 mg/dL (7-18) Creatinine 0.9 MG/DL (0.55-1.30) Estimat Glomerular Filtration Rate > 60 mL/min (>60) Glucose Level 108 MG/DL (74-106) H Calcium Level 8.2 MG/DL (8.5-10.1) L Phosphorus Level 3.6 MG/DL (2.5-4.9) Magnesium Level 1.8 MG/DL (1.8-2.4) Total Bilirubin 0.5 MG/DL (0.2-1.0) Gamma Glutamyl Transpeptidase 469 U/L (5-85) H Aspartate Amino Transf (AST/SGOT) 29 U/L (15-37) Alanine Aminotransferase (ALT/SGPT) 36 U/L (12-78) Alkaline Phosphatase 205 U/L (46-116) H C-Reactive Protein, Quantitative 2.5 mg/dL (0.00-0.90) H Pro-B-Type Natriuretic Peptide 733 pg/mL (0-125) H Total Protein 5.8 G/DL (6.4-8.2) L Albumin 2.2 G/DL (3.4-5.0) L Globulin 3.6 g/dL Albumin/Globulin Ratio 0.6 (1.0-2.7) L Current Medications Medications (Trade) Dose Ordered Sig/Bere Route PRN Reason Start Time Stop Time Status Last Admin Dose Admin Acetaminophen (Tylenol) 650 mg Q4H PRN GT Temp >100.5 02/19/20 22:00 03/20/20 21:59 02/26/20 15:50 Chlorhexidine Gluconate (Jane-Hex 2%) 1 applic DAILY@2000 TOPIC 02/20/20 20:00 05/20/20 19:59 02/29/20 19:56 Dopamine HCl/ Dextrose 250 ml @ 0 mls/hr Q24H IV 02/19/20 21:00 05/19/20 20:59 02/21/20 03:10 Famotidine (Pepcid) 20 mg BID GT 02/27/20 18:00 05/27/20 17:59 03/01/20 08:36 Levetiracetam 100 ml @ 400 mls/hr Q12HR IVPB 02/20/20 09:00 05/20/20 08:59 03/01/20 08:37 Levofloxacin (Levaquin) 750 mg DAILY GT 02/27/20 10:15 03/05/20 10:14 03/01/20 08:36 Metronidazole (Flagyl) 500 mg Q8HR GT 02/27/20 14:00 03/05/20 13:59 03/01/20 05:50 Midodrine (Pro-Amatine) 10 mg Q8HR GT 02/27/20 14:00 05/25/20 13:59 03/01/20 05:50 Morphine Sulfate (Morphine Sulfate) 2 mg Q4H PRN IVP For Pain 02/23/20 12:15 03/01/20 12:14 Norepinephrine Bitartrate 16 mg/ Dextrose 566 ml @ 0 mls/hr Q24H IV 02/22/20 23:00 03/23/20 22:59 02/24/20 00:12 Phenytoin (Dilantin) 200 mg Q12H IVP 02/29/20 21:00 03/27/20 20:59 03/01/20 08:37 Potassium Chloride (K-Dur) 20 meq BID GT 02/27/20 18:00 05/24/20 17:59 03/01/20 08:36 Lulu Gurrola MD March 01, 2020 10:50"
--- NOTE | 2020-03-01 12:11 | Nephrology Progress Note ---
Assessment/Plan Problem List: (1) Electrolyte imbalance (2) Elevated liver enzymes (3) Respiratory failure (4) Hypoalbuminemia (5) Proteinuria (6) Leukocytosis Assessment HypoKalemia Proteinuria, hypoalbuminemia, BUN and creatinine within normal range Chronic respiratory failure Status post left pneumothorax with chest tube in place Transaminitis Leukocytosis Sepsis, bacteremia with gram-positive cocci Anoxic encephalopathy Seizure disorder Penicillin allergy Hypertension Plan March 01: Renal parameters stable. Continue per consultants. Continue to monitor renal parameters on Dilantin level. February 28: Electrolytes within normal limit. Dilantin level somewhat low. Will adjust Dilantin dose. February 27: Potassium and phosphate supplement. Magnesium supplement. C. difficile negative. Check Dilantin level tomorrow February 26: Potassium is low again most likely due to diarrhea Will stop IV Reglan Will order stool for C. difficile Continue adjusting Dilantin level and continue on Midodrine Discussed with RN February 25: More potassium and magnesium supplement today Increase GT feeding Adjust Dilantin dose Increase midodrine Continue to monitor her electrolytes and renal parameters Discussed with RN Per orders February 24: Today's lab results noted. Serum potassium now within acceptable range GT tube is now clamped will start GT feeding. Continue IV Reglan. DC IV fluid and IV Lasix. Monitor electrolytes and renal parameters. Midodrine through GT tube for blood pressure below 100 systolic Discussed with RN February 23: We will clamp the GT and disconnected from suction Increase Protonix to every 12 hours IV IV Reglan 100 mEq of KCl intravenously Continue to monitor electrolytes Discussed with RN February 22: Low potassium is replaced intravenously and via GT Stool for C. difficile sent Will monitor electrolytes Continue per consultants regarding normalizing LFTs and underlying sepsis February 21: Leukocytosis worsened, Blood pressure borderline low LFTs remain elevated Abnormal magnesium potassium and phosphorus on the can panel Supplements for potassium magnesium and phosphorus ordered and continue as needed Continue to check calcium and phosphorus and liver function tests Continue per ID and pulmonary Keep the blood pressure and blood sugar in check Per orders Subjective ROS Limited/Unobtainable: Yes Objective Objective Last 24 Hour Vital Signs Date Time Temp Pulse Resp B/P (MAP) Pulse Ox O2 Delivery O2 Flow Rate FiO2 03/01/20 12:00 98.8 70 20 117/58 (77) 100 03/01/20 12:00 Mechanical Ventilator Mechanical Ventilator 03/01/20 11:00 69 20 118/58 (78) 100 03/01/20 10:00 71 20 123/61 (81) 100 03/01/20 09:00 76 20 116/62 (80) 100 03/01/20 09:00 100 03/01/20 08:00 69 03/01/20 08:00 77 21 118/60 (79) 100 03/01/20 08:00 Mechanical Ventilator Mechanical Ventilator 03/01/20 08:00 40 03/01/20 07:15 82 20 40 03/01/20 07:00 99.2 65 20 118/60 (79) 100 03/01/20 06:30 79 21 03/01/20 06:00 68 20 110/49 (69) 100 03/01/20 05:11 79 20 40 03/01/20 05:00 82 20 114/61 (78) 03/01/20 04:00 40 03/01/20 04:00 98.4 80 20 102/54 (70) 88 03/01/20 04:00 Mechanical Ventilator Mechanical Ventilator 03/01/20 04:00 88 03/01/20 03:00 82 20 40 03/01/20 03:00 75 20 105/53 (70) 100 03/01/20 02:00 88 18 122/57 (78) 100 03/01/20 01:23 68 20 40 03/01/20 01:00 96 17 109/57 (74) 100 03/01/20 00:00 Mechanical Ventilator Mechanical Ventilator 03/01/20 00:00 91 03/01/20 00:00 98.8 80 18 130/68 (88) 100 03/01/20 00:00 40 02/29/20 23:00 84 20 134/57 (82) 100 02/29/20 23:00 130/68 02/29/20 22:39 84 20 40 02/29/20 22:00 90 17 126/61 (82) 100 02/29/20 21:00 86 21 114/59 (77) 100 02/29/20 20:54 111/57 02/29/20 20:52 92 20 40 02/29/20 20:00 Mechanical Ventilator Mechanical Ventilator 02/29/20 20:00 40 02/29/20 20:00 99.0 86 20 111/57 (75) 100 02/29/20 20:00 86 02/29/20 19:10 85 20 40 02/29/20 19:00 82 20 110/52 (71) 100 02/29/20 18:30 84 20 109/58 (75) 99 02/29/20 18:00 76 20 106/49 (68) 100 02/29/20 17:12 80 20 40 02/29/20 17:00 83 20 107/53 (71) 100 02/29/20 16:00 87 02/29/20 16:00 Mechanical Ventilator Mechanical Ventilator 02/29/20 16:00 40 02/29/20 16:00 99.5 94 20 101/51 (68) 100 02/29/20 15:17 81 20 40 02/29/20 15:00 101 22 102/53 (69) 99 02/29/20 14:00 103 21 103/59 (74) 100 02/29/20 13:00 87 20 104/53 (70) 100 02/29/20 12:45 84 20 40 Intake and Output 02/29/20 03/01/20 19:00 07:00 Intake Total 640 ml 530 ml Output Total 1075 ml 1230 ml Balance -435 ml -700 ml Intake Free Water 60 ml 90 ml IV Total 100 ml Tube Feeding 480 ml 440 ml Output Urine Total 1075 ml 1150 ml Stool Total 80 ml Chest Tube Drainage Total 0 ml Laboratory Tests 03/01/20 04:00: White Blood Count 12.1H, Red Blood Count 2.62L, Hemoglobin 8.0L, Hematocrit 23.4L, Mean Corpuscular Volume 89, Mean Corpuscular Hemoglobin 30.8, Mean Corpuscular Hemoglobin Concent 34.4, Red Cell Distribution Width 11.8, Platelet Count 196, Mean Platelet Volume 8.0, Neutrophils (%) (Auto) 61.5, Lymphocytes (% ) (Auto) 30.2, Monocytes (%) (Auto) 4.4, Eosinophils (%) (Auto) 3.4H, Basophils (%) (Auto) 0.6, Sodium Level 143, Potassium Level 3.7, Chloride Level 107, Carbon Dioxide Level 28, Anion Gap 8, Blood Urea Nitrogen 10, Creatinine 0.9, Estimat Glomerular Filtration Rate > 60, Glucose Level 108H, Calcium Level 8.2L , Phosphorus Level 3.6, Magnesium Level 1.8, Total Bilirubin 0.5, Gamma Glutamyl Transpeptidase 469H, Aspartate Amino Transf (AST/SGOT) 29, Alanine Aminotransferase (ALT/SGPT) 36, Alkaline Phosphatase 205H, C-Reactive Protein, Quantitative 2.5H, Pro-B-Type Natriuretic Peptide 733H, Total Protein 5.8L, Albumin 2.2L, Globulin 3.6, Albumin/Globulin Ratio 0.6L Height (Feet): 5 Height (Inches): 4.00 Weight (Pounds): 161 General Appearance: no apparent distress EENT: other - Remains on ventilator Cardiovascular: normal rate Abdomen: soft Objective No change Erich Link MD March 01, 2020 12:10
--- NOTE | 2020-03-01 12:21 | Pulmonology Progress Note ---
Subjective ROS Limited/Unobtainable: Yes Interval Events: None new; remains intubated Constitutional: Reports: fever, other - on cooling banket HEENT: Repors: no symptoms Respiratory: Reports: no symptoms Cardiovascular: Reports: no symptoms Gastrointestinal/Abdominal: Reports: diarrhea Allergies: Coded Allergies: PENICILLINS (Verified Allergy, Unknown, 02/14/18) Objective Last 24 Hour Vital Signs Date Time Temp Pulse Resp B/P (MAP) Pulse Ox O2 Delivery O2 Flow Rate FiO2 03/01/20 12:00 66 03/01/20 12:00 40 03/01/20 12:00 98.8 70 20 117/58 (77) 100 03/01/20 12:00 Mechanical Ventilator Mechanical Ventilator 03/01/20 11:10 65 20 40 03/01/20 11:00 69 20 118/58 (78) 100 03/01/20 10:00 71 20 123/61 (81) 100 03/01/20 09:00 76 20 116/62 (80) 100 03/01/20 09:00 100 03/01/20 08:00 69 03/01/20 08:00 77 21 118/60 (79) 100 03/01/20 08:00 Mechanical Ventilator Mechanical Ventilator 03/01/20 08:00 40 03/01/20 07:15 82 20 40 03/01/20 07:00 99.2 65 20 118/60 (79) 100 03/01/20 06:30 79 21 03/01/20 06:00 68 20 110/49 (69) 100 03/01/20 05:11 79 20 40 03/01/20 05:00 82 20 114/61 (78) 03/01/20 04:00 40 03/01/20 04:00 98.4 80 20 102/54 (70) 88 03/01/20 04:00 Mechanical Ventilator Mechanical Ventilator 03/01/20 04:00 88 03/01/20 03:00 82 20 40 03/01/20 03:00 75 20 105/53 (70) 100 03/01/20 02:00 88 18 122/57 (78) 100 03/01/20 01:23 68 20 40 03/01/20 01:00 96 17 109/57 (74) 100 03/01/20 00:00 Mechanical Ventilator Mechanical Ventilator 03/01/20 00:00 91 03/01/20 00:00 98.8 80 18 130/68 (88) 100 03/01/20 00:00 40 02/29/20 23:00 84 20 134/57 (82) 100 02/29/20 23:00 130/68 02/29/20 22:39 84 20 40 02/29/20 22:00 90 17 126/61 (82) 100 02/29/20 21:00 86 21 114/59 (77) 100 02/29/20 20:54 111/57 02/29/20 20:52 92 20 40 02/29/20 20:00 Mechanical Ventilator Mechanical Ventilator 02/29/20 20:00 40 02/29/20 20:00 99.0 86 20 111/57 (75) 100 02/29/20 20:00 86 02/29/20 19:10 85 20 40 02/29/20 19:00 82 20 110/52 (71) 100 02/29/20 18:30 84 20 109/58 (75) 99 02/29/20 18:00 76 20 106/49 (68) 100 02/29/20 17:12 80 20 40 02/29/20 17:00 83 20 107/53 (71) 100 02/29/20 16:00 87 02/29/20 16:00 Mechanical Ventilator Mechanical Ventilator 02/29/20 16:00 40 02/29/20 16:00 99.5 94 20 101/51 (68) 100 02/29/20 15:17 81 20 40 02/29/20 15:00 101 22 102/53 (69) 99 02/29/20 14:00 103 21 103/59 (74) 100 02/29/20 13:00 87 20 104/53 (70) 100 02/29/20 12:45 84 20 40 Intake and Output 02/29/20 03/01/20 19:00 07:00 Intake Total 640 ml 530 ml Output Total 1075 ml 1230 ml Balance -435 ml -700 ml Intake Free Water 60 ml 90 ml IV Total 100 ml Tube Feeding 480 ml 440 ml Output Urine Total 1075 ml 1150 ml Stool Total 80 ml Chest Tube Drainage Total 0 ml General Appearance: no acute distress HEENT: normocephalic Respiratory: chest wall non-tender, lungs clear Cardiovascular: normal peripheral pulses Abdomen: normal bowel sounds Microbiology Date/Time Source Procedure Growth Status 02/28/20 04:30 Stool Clostridium difficile Toxin Assay - Final Complete Laboratory Tests 03/01/20 04:00: White Blood Count 12.1H, Red Blood Count 2.62L, Hemoglobin 8.0L, Hematocrit 23.4L, Mean Corpuscular Volume 89, Mean Corpuscular Hemoglobin 30.8, Mean Corpuscular Hemoglobin Concent 34.4, Red Cell Distribution Width 11.8, Platelet Count 196, Mean Platelet Volume 8.0, Neutrophils (%) (Auto) 61.5, Lymphocytes (% ) (Auto) 30.2, Monocytes (%) (Auto) 4.4, Eosinophils (%) (Auto) 3.4H, Basophils (%) (Auto) 0.6, Sodium Level 143, Potassium Level 3.7, Chloride Level 107, Carbon Dioxide Level 28, Anion Gap 8, Blood Urea Nitrogen 10, Creatinine 0.9, Estimat Glomerular Filtration Rate > 60, Glucose Level 108H, Calcium Level 8.2L , Phosphorus Level 3.6, Magnesium Level 1.8, Total Bilirubin 0.5, Gamma Glutamyl Transpeptidase 469H, Aspartate Amino Transf (AST/SGOT) 29, Alanine Aminotransferase (ALT/SGPT) 36, Alkaline Phosphatase 205H, C-Reactive Protein, Quantitative 2.5H, Pro-B-Type Natriuretic Peptide 733H, Total Protein 5.8L, Albumin 2.2L, Globulin 3.6, Albumin/Globulin Ratio 0.6L Current Medications Medications (Trade) Dose Ordered Sig/Bere Route PRN Reason Start Time Stop Time Status Last Admin Dose Admin Acetaminophen (Tylenol) 650 mg Q4H PRN GT Temp >100.5 02/19/20 22:00 03/20/20 21:59 02/26/20 15:50 Chlorhexidine Gluconate (Jane-Hex 2%) 1 applic DAILY@2000 TOPIC 02/20/20 20:00 05/20/20 19:59 02/29/20 19:56 Dopamine HCl/ Dextrose 250 ml @ 0 mls/hr Q24H IV 02/19/20 21:00 05/19/20 20:59 02/21/20 03:10 Famotidine (Pepcid) 20 mg BID GT 02/27/20 18:00 05/27/20 17:59 03/01/20 08:36 Levetiracetam 100 ml @ 400 mls/hr Q12HR IVPB 02/20/20 09:00 05/20/20 08:59 03/01/20 08:37 Levofloxacin (Levaquin) 750 mg DAILY GT 02/27/20 10:15 03/05/20 10:14 03/01/20 08:36 Metronidazole (Flagyl) 500 mg Q8HR GT 02/27/20 14:00 03/05/20 13:59 03/01/20 05:50 Midodrine (Pro-Amatine) 10 mg Q8HR GT 02/27/20 14:00 05/25/20 13:59 03/01/20 05:50 Norepinephrine Bitartrate 16 mg/ Dextrose 566 ml @ 0 mls/hr Q24H IV 02/22/20 23:00 03/23/20 22:59 02/24/20 00:12 Phenytoin (Dilantin) 200 mg Q12H IVP 02/29/20 21:00 03/27/20 20:59 03/01/20 08:37 Potassium Chloride (K-Dur) 20 meq BID GT 02/27/20 18:00 05/24/20 17:59 03/01/20 08:36 Assessment/Plan Assessment/Plan IMPRESSION: 1. Status post left pneumothorax with chest tube in place. 2. Tracheal bleeding, status post removal. 3. Respiratory failure, status post orotracheal intubation. 4. Transaminitis. 5. Leukocytosis. 6. Chronic encephalopathy. 7. Chronic respiratory failure. DISCUSSION: Continue assist-control mechanical ventilation. I will decrease PEEP as much as possible. Keep chest tube to suction. Broad-spectrum antibiotics. Enteral feedings. Continue medications. Follow carefully. Family reportedly considering terminal extubation Will monitor Febrile; cooling measures noted Would not wean; has chronic resp failure Celestino Haile M.D. Celestino Haile MD March 01, 2020 12:21
--- NOTE | 2020-03-01 16:39 | Cardiac Electrophysiology PN ---
Assessment/Plan Assessment/Plan 1. Respiratory failure. Orally intubated on the vent. Fio2 40% and PEEP 5. Fu by Dr. Haile. Terminal extubation vs new trach per sister pending. Covid negative x 2 2. Paroxysmal atrial fibrillation, off anticoagulation in view of bleeding from the trach site. Converted to SR 3. Left Pneumothorax, status post Left chest tube placement to water seal on antibiotic. 4. S/P Septic Shock , off Levophed 5. Dysphagia, status post PEG placement. 6. Dementia and Chronic encephalopathy. 7. DNR DW RN Subjective Subjective In ICU on the vent and off pressors. Covid negative x2. Off Covid isolation Sister hasn't called yet to make decision re terminal extubation vs Re- tracheostomy Objective Last 24 Hour Vital Signs Date Time Temp Pulse Resp B/P (MAP) Pulse Ox O2 Delivery O2 Flow Rate FiO2 03/01/20 15:15 82 20 40 03/01/20 15:00 76 20 116/57 (76) 100 03/01/20 14:00 83 20 123/67 (85) 100 03/01/20 13:00 89 20 108/58 (75) 100 03/01/20 12:00 66 03/01/20 12:00 40 03/01/20 12:00 98.8 70 20 117/58 (77) 100 03/01/20 12:00 Mechanical Ventilator Mechanical Ventilator 03/01/20 11:10 65 20 40 03/01/20 11:00 69 20 118/58 (78) 100 03/01/20 10:00 71 20 123/61 (81) 100 03/01/20 09:00 76 20 116/62 (80) 100 03/01/20 09:00 100 03/01/20 08:00 69 03/01/20 08:00 77 21 118/60 (79) 100 03/01/20 08:00 Mechanical Ventilator Mechanical Ventilator 03/01/20 08:00 40 03/01/20 07:15 82 20 40 03/01/20 07:00 99.2 65 20 118/60 (79) 100 03/01/20 06:30 79 21 03/01/20 06:00 68 20 110/49 (69) 100 03/01/20 05:11 79 20 40 03/01/20 05:00 82 20 114/61 (78) 03/01/20 04:00 40 03/01/20 04:00 98.4 80 20 102/54 (70) 88 03/01/20 04:00 Mechanical Ventilator Mechanical Ventilator 03/01/20 04:00 88 03/01/20 03:00 82 20 40 03/01/20 03:00 75 20 105/53 (70) 100 03/01/20 02:00 88 18 122/57 (78) 100 03/01/20 01:23 68 20 40 03/01/20 01:00 96 17 109/57 (74) 100 03/01/20 00:00 Mechanical Ventilator Mechanical Ventilator 03/01/20 00:00 91 03/01/20 00:00 98.8 80 18 130/68 (88) 100 03/01/20 00:00 40 02/29/20 23:00 84 20 134/57 (82) 100 02/29/20 23:00 130/68 02/29/20 22:39 84 20 40 02/29/20 22:00 90 17 126/61 (82) 100 02/29/20 21:00 86 21 114/59 (77) 100 02/29/20 20:54 111/57 02/29/20 20:52 92 20 40 02/29/20 20:00 Mechanical Ventilator Mechanical Ventilator 02/29/20 20:00 40 02/29/20 20:00 99.0 86 20 111/57 (75) 100 02/29/20 20:00 86 02/29/20 19:10 85 20 40 02/29/20 19:00 82 20 110/52 (71) 100 02/29/20 18:30 84 20 109/58 (75) 99 02/29/20 18:00 76 20 106/49 (68) 100 02/29/20 17:12 80 20 40 02/29/20 17:00 83 20 107/53 (71) 100 Intake and Output 02/29/20 03/01/20 19:00 07:00 Intake Total 640 ml 530 ml Output Total 1075 ml 1230 ml Balance -435 ml -700 ml Intake Free Water 60 ml 90 ml IV Total 100 ml Tube Feeding 480 ml 440 ml Output Urine Total 1075 ml 1150 ml Stool Total 80 ml Chest Tube Drainage Total 0 ml Laboratory Tests Test 03/01/20 04:00 White Blood Count 12.1 K/UL (4.8-10.8) H Red Blood Count 2.62 M/UL (4.20-5.40) L Hemoglobin 8.0 G/DL (12.0-16.0) L Hematocrit 23.4 % (37.0-47.0) L Mean Corpuscular Volume 89 FL (80-99) Mean Corpuscular Hemoglobin 30.8 PG (27.0-31.0) Mean Corpuscular Hemoglobin Concent 34.4 G/DL (32.0-36.0) Red Cell Distribution Width 11.8 % (11.6-14.8) Platelet Count 196 K/UL (150-450) Mean Platelet Volume 8.0 FL (6.5-10.1) Neutrophils (%) (Auto) 61.5 % (45.0-75.0) Lymphocytes (%) (Auto) 30.2 % (20.0-45.0) Monocytes (%) (Auto) 4.4 % (1.0-10.0) Eosinophils (%) (Auto) 3.4 % (0.0-3.0) H Basophils (%) (Auto) 0.6 % (0.0-2.0) Sodium Level 143 MMOL/L (136-145) Potassium Level 3.7 MMOL/L (3.5-5.1) Chloride Level 107 MMOL/L (98-107) Carbon Dioxide Level 28 MMOL/L (21-32) Anion Gap 8 mmol/L (5-15) Blood Urea Nitrogen 10 mg/dL (7-18) Creatinine 0.9 MG/DL (0.55-1.30) Estimat Glomerular Filtration Rate > 60 mL/min (>60) Glucose Level 108 MG/DL (74-106) H Calcium Level 8.2 MG/DL (8.5-10.1) L Phosphorus Level 3.6 MG/DL (2.5-4.9) Magnesium Level 1.8 MG/DL (1.8-2.4) Total Bilirubin 0.5 MG/DL (0.2-1.0) Gamma Glutamyl Transpeptidase 469 U/L (5-85) H Aspartate Amino Transf (AST/SGOT) 29 U/L (15-37) Alanine Aminotransferase (ALT/SGPT) 36 U/L (12-78) Alkaline Phosphatase 205 U/L (46-116) H C-Reactive Protein, Quantitative 2.5 mg/dL (0.00-0.90) H Pro-B-Type Natriuretic Peptide 733 pg/mL (0-125) H Total Protein 5.8 G/DL (6.4-8.2) L Albumin 2.2 G/DL (3.4-5.0) L Globulin 3.6 g/dL Albumin/Globulin Ratio 0.6 (1.0-2.7) L Microbiology Date/Time Source Procedure Growth Status 02/28/20 04:30 Stool Clostridium difficile Toxin Assay - Final Complete Objective HEAD AND NECK: Orally intubated and tracheostomy is covered. LUNGS: Coarse rhonchi. CARDIOVASCULAR: Regular S1 and S2 with no gallop. She has a chest tube. ABDOMEN: Soft. EXTREMITIES: 1+ pitting edema.Contracted Dat Oh MD March 01, 2020 16:39
--- NOTE | 2020-03-01 17:59 | Surgery Progress Note ---
Surgery Progress Note Subjective Additional Comments family has decided for comfort care terminal extubation but plan to come visit one last time prior Objective Last 24 Hour Vital Signs Date Time Temp Pulse Resp B/P (MAP) Pulse Ox O2 Delivery O2 Flow Rate FiO2 03/01/20 17:00 87 20 108/55 (72) 100 03/01/20 16:00 99.3 93 23 119/66 (83) 100 03/01/20 16:00 40 03/01/20 16:00 Mechanical Ventilator Mechanical Ventilator 03/01/20 15:15 82 20 40 03/01/20 15:00 76 20 116/57 (76) 100 03/01/20 14:00 83 20 123/67 (85) 100 03/01/20 13:00 89 20 108/58 (75) 100 03/01/20 12:00 66 03/01/20 12:00 40 03/01/20 12:00 98.8 70 20 117/58 (77) 100 03/01/20 12:00 Mechanical Ventilator Mechanical Ventilator 03/01/20 11:10 65 20 40 03/01/20 11:00 69 20 118/58 (78) 100 03/01/20 10:00 71 20 123/61 (81) 100 03/01/20 09:00 76 20 116/62 (80) 100 03/01/20 09:00 100 03/01/20 08:00 69 03/01/20 08:00 77 21 118/60 (79) 100 03/01/20 08:00 Mechanical Ventilator Mechanical Ventilator 03/01/20 08:00 40 03/01/20 07:15 82 20 40 03/01/20 07:00 99.2 65 20 118/60 (79) 100 03/01/20 06:30 79 21 03/01/20 06:00 68 20 110/49 (69) 100 03/01/20 05:11 79 20 40 03/01/20 05:00 82 20 114/61 (78) 03/01/20 04:00 40 03/01/20 04:00 98.4 80 20 102/54 (70) 88 03/01/20 04:00 Mechanical Ventilator Mechanical Ventilator 03/01/20 04:00 88 03/01/20 03:00 82 20 40 03/01/20 03:00 75 20 105/53 (70) 100 03/01/20 02:00 88 18 122/57 (78) 100 03/01/20 01:23 68 20 40 03/01/20 01:00 96 17 109/57 (74) 100 03/01/20 00:00 Mechanical Ventilator Mechanical Ventilator 03/01/20 00:00 91 03/01/20 00:00 98.8 80 18 130/68 (88) 100 03/01/20 00:00 40 02/29/20 23:00 84 20 134/57 (82) 100 02/29/20 23:00 130/68 02/29/20 22:39 84 20 40 02/29/20 22:00 90 17 126/61 (82) 100 02/29/20 21:00 86 21 114/59 (77) 100 02/29/20 20:54 111/57 02/29/20 20:52 92 20 40 02/29/20 20:00 Mechanical Ventilator Mechanical Ventilator 02/29/20 20:00 40 02/29/20 20:00 99.0 86 20 111/57 (75) 100 02/29/20 20:00 86 02/29/20 19:10 85 20 40 02/29/20 19:00 82 20 110/52 (71) 100 02/29/20 18:30 84 20 109/58 (75) 99 02/29/20 18:00 76 20 106/49 (68) 100 I&O Intake and Output 02/29/20 03/01/20 19:00 07:00 Intake Total 640 ml 530 ml Output Total 1075 ml 1230 ml Balance -435 ml -700 ml Intake Free Water 60 ml 90 ml IV Total 100 ml Tube Feeding 480 ml 440 ml Output Urine Total 1075 ml 1150 ml Stool Total 80 ml Chest Tube Drainage Total 0 ml Dressing: other Wound: other Drains: other Cardiovascular: RSR Respiratory: decreased breath sounds Abdomen: soft, present bowel sounds Extremities: no cyanosis Laboratory Tests Test 03/01/20 04:00 White Blood Count 12.1 K/UL (4.8-10.8) H Red Blood Count 2.62 M/UL (4.20-5.40) L Hemoglobin 8.0 G/DL (12.0-16.0) L Hematocrit 23.4 % (37.0-47.0) L Mean Corpuscular Volume 89 FL (80-99) Mean Corpuscular Hemoglobin 30.8 PG (27.0-31.0) Mean Corpuscular Hemoglobin Concent 34.4 G/DL (32.0-36.0) Red Cell Distribution Width 11.8 % (11.6-14.8) Platelet Count 196 K/UL (150-450) Mean Platelet Volume 8.0 FL (6.5-10.1) Neutrophils (%) (Auto) 61.5 % (45.0-75.0) Lymphocytes (%) (Auto) 30.2 % (20.0-45.0) Monocytes (%) (Auto) 4.4 % (1.0-10.0) Eosinophils (%) (Auto) 3.4 % (0.0-3.0) H Basophils (%) (Auto) 0.6 % (0.0-2.0) Sodium Level 143 MMOL/L (136-145) Potassium Level 3.7 MMOL/L (3.5-5.1) Chloride Level 107 MMOL/L (98-107) Carbon Dioxide Level 28 MMOL/L (21-32) Anion Gap 8 mmol/L (5-15) Blood Urea Nitrogen 10 mg/dL (7-18) Creatinine 0.9 MG/DL (0.55-1.30) Estimat Glomerular Filtration Rate > 60 mL/min (>60) Glucose Level 108 MG/DL (74-106) H Calcium Level 8.2 MG/DL (8.5-10.1) L Phosphorus Level 3.6 MG/DL (2.5-4.9) Magnesium Level 1.8 MG/DL (1.8-2.4) Total Bilirubin 0.5 MG/DL (0.2-1.0) Gamma Glutamyl Transpeptidase 469 U/L (5-85) H Aspartate Amino Transf (AST/SGOT) 29 U/L (15-37) Alanine Aminotransferase (ALT/SGPT) 36 U/L (12-78) Alkaline Phosphatase 205 U/L (46-116) H C-Reactive Protein, Quantitative 2.5 mg/dL (0.00-0.90) H Pro-B-Type Natriuretic Peptide 733 pg/mL (0-125) H Total Protein 5.8 G/DL (6.4-8.2) L Albumin 2.2 G/DL (3.4-5.0) L Globulin 3.6 g/dL Albumin/Globulin Ratio 0.6 (1.0-2.7) L Plan Problems: (1) Pneumothorax Assessment & Plan: cont chest tube to water seal am cxr will monitor hold removal until decision for trach made 1. Left-sided pneumothorax, approximately 50% by volume. 2. Extensive subcutaneous emphysema throughout the chest wall and neck soft tissues bilaterally. s/p chest tube Lungs: Persistent mild increased interstitial markings. The lungs are otherwise clear without focal consolidation. Pleural space: Interval significant improvement of the left-sided pneumothorax, no longer well seen. Heart: Unremarkable. No cardiomegaly. Mediastinum: Unremarkable. Bones/joints: Unremarkable. Soft tissues: Persistent but improved subcutaneous emphysema in the chest reed and neck soft tissues bilaterally. Tubes, lines and devices: Left-sided chest tube in place, with expected positioning. Endotracheal tube tip 3.2 cm above the emerita. Telemetry leads overlie the thorax. IMPRESSION: 1. Left-sided chest tube in place, with expected positioning. 2. Interval significant improvement of the left-sided pneumothorax, which is no longer well seen. 3. Persistent mild increased interstitial markings. This is nonspecific but may suggest mild interstitial edema or a mild pneumonitis. No focal consolidation. 4. Improved subcutaneous emphysema in the chest reed and neck soft tissues bilaterally. (2) Respiratory arrest Assessment & Plan: TRACH REMOVED, SITE BLEEDING. LT CHEST TUNE TO SUCTION. FEMORAL ACCESS will plan for trach new when stable (3) Respiratory distress (4) Tracheostomy complication Assessment & Plan: trach complication intubated on support will need to revise trach once stable thank you Hold on trach revision his family is considering terminal extubation At withdrawal of care discussed with team. number for sister Vee received spoke with Vee. this is 4th year when her sister has been this ill without improvement family has spoken and have decided for comfort care await decision on if they will come bedside for terminal extubation or not family decided comfort care plan terminal extubation after they arrive Ant Lee March 01, 2020 17:59
[2020-03-01] MEDS: Dyna-Hex 2% Top Sol 2oz TOPIC SCH (19:58)
[2020-03-01] MEDS: DOPamine 400mg/250ml 250 ML IV SCH (20:50)
[2020-03-01] MEDS: Norepinephrine Bitartrate 16 MG in D5W 500ml 550 ML IV SCH (21:57)
[2020-03-02] VITALS (24 sets, daily range): BP systolic 102–137; BP diastolic 46–70
--- NOTE | 2020-03-02 01:55 | Progress Note ---
DATE: 03/01/2020 SUBJECTIVE: This is a 16-ampm-hcswhn, nonverbal, bedbound. Opens her eyes. Ventilator. Patient is encephalopathic. OBJECTIVE: VITAL SIGNS: Blood pressure 116/57, pulse 76, respirations 20, temperature 98.8. HEENT: NAD. CHEST: Bilateral decreased breath sounds. CARDIOVASCULAR: Regular rhythm. ABDOMEN: Soft. EXTREMITIES: CCE. NEUROLOGICAL: Nonverbal, bedbound. LABORATORY DATA: White counts are 12,000, hemoglobin 8, hematocrit 23, platelets are 89. Chemistry panel, BUN 10, creatinine 0.9. ASSESSMENT: 1. Acute respiratory failure. 2. Sepsis. 3. Encephalopathy. 4. Dysphagia. PLAN: We will currently continue Dilantin. Continue Flagyl, Levaquin. Continue Keppra. Continue ventilator. Darin Delgado M.D. DR: CRISTELA JOB#: [id number] CC:
[2020-03-02] MEDS: Midodrine 10mg tab GT SCH (05:42)
[2020-03-02] MEDS: metroNIDAZOLE 500mg tab GT SCH (05:42)
[2020-03-02 06:04] LABS: ALANINE AMINOTRANSFERASE 32 U/L (12-78); ALBUMIN 2.5 G/DL (3.4-5.0); ALBUMIN/GLOBULIN RATIO 0.7 (1.0-2.7); ALKALINE PHOSPHATASE 217 U/L (46-116); ANION GAP 9 mmol/L (5-15); ASPARTATE AMINO TRANSFERASE 26 U/L (15-37); BILIRUBIN,TOTAL 0.6 MG/DL (0.2-1.0); BLOOD UREA NITROGEN 9 mg/dL (7-18); CALCIUM 8.4 MG/DL (8.5-10.1); CARBON DIOXIDE 25 MMOL/L (21-32); CHLORIDE 106 MMOL/L (98-107); CREATININE 0.9 MG/DL (0.55-1.30); POTASSIUM 3.7 MMOL/L (3.5-5.1); SODIUM 140 MMOL/L (136-145)
[2020-03-02 06:08] LABS: PHOSPHORUS 4.1 MG/DL (2.5-4.9)
[2020-03-02] MEDS: Levofloxacin 750mg tab GT SCH (08:31)
[2020-03-02] MEDS: levETIRAcetam 500mg/NS100ml 100 ML IVPB SCH (08:32)
[2020-03-02 09:40] LABS: BASOPHILS % (AUTO) 0.6 % (0.0-2.0); HEMATOCRIT 27.1 % (37.0-47.0); HEMOGLOBIN 8.6 G/DL (12.0-16.0); LYMPHOCYTES % (AUTO) 25.5 % (20.0-45.0); MEAN CORPUSCULAR VOLUME 98 FL (80-99); MONOCYTES % (AUTO) 3.8 % (1.0-10.0); PLATELET COUNT 264 K/UL (150-450); RED BLOOD COUNT 2.77 M/UL (4.20-5.40); RED CELL DISTRIBUTION WIDTH 14.2 % (11.6-14.8)
--- NOTE | 2020-03-02 09:58 | Infectious Diseases Prog Note ---
Assessment/Plan Assessment/Plan A 1. pneumonia with Pseudomonas & Stenotrophomonas COVID 19 X 2: negative 2. Ventilatory dependent respiratory failure 3. shock 4. + blood cultures with coag neg staph likely contaminated 5. pneumothorax 6. hypertension 7. 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 continue Levaquin & Flagyl X 4 days Subjective ROS Limited/Unobtainable: Yes Constitutional: Denies: fever Allergies: Coded Allergies: PENICILLINS (Verified Allergy, Unknown, 02/14/18) Objective Vital Signs Last 24 Hour Vital Signs Date Time Temp Pulse Resp B/P (MAP) Pulse Ox O2 Delivery O2 Flow Rate FiO2 03/02/20 07:36 92 22 40 03/02/20 06:30 74 20 03/02/20 06:00 82 20 107/46 (66) 100 03/02/20 05:00 84 20 105/53 (70) 100 03/02/20 04:00 Mechanical Ventilator Mechanical Ventilator 03/02/20 04:00 100 03/02/20 04:00 40 03/02/20 04:00 99.0 82 20 113/57 (75) 100 03/02/20 03:08 94 25 40 03/02/20 03:00 81 20 103/54 (70) 100 03/02/20 02:00 96 11 108/52 (70) 100 03/02/20 01:00 78 8 114/56 (75) 100 03/02/20 00:00 Mechanical Ventilator Mechanical Ventilator 03/02/20 00:00 40 03/02/20 00:00 99.2 87 4 112/46 (68) 100 03/01/20 23:00 88 19 102/45 (64) 100 03/01/20 22:00 98 20 112/56 (74) 100 03/01/20 21:57 106/59 03/01/20 21:54 98 22 40 03/01/20 21:00 97 20 106/59 (75) 100 03/01/20 20:50 110/55 03/01/20 20:00 101 03/01/20 20:00 Mechanical Ventilator Mechanical Ventilator 03/01/20 20:00 99.8 101 20 105/55 (72) 100 03/01/20 20:00 40 03/01/20 19:08 102 24 40 03/01/20 19:00 103 20 107/56 (73) 100 03/01/20 18:00 105 20 105/57 (73) 100 03/01/20 17:00 87 20 108/55 (72) 100 03/01/20 16:00 99.3 93 23 119/66 (83) 100 03/01/20 16:00 81 03/01/20 16:00 40 03/01/20 16:00 Mechanical Ventilator Mechanical Ventilator 03/01/20 15:15 82 20 40 03/01/20 15:00 76 20 116/57 (76) 100 03/01/20 14:00 83 20 123/67 (85) 100 03/01/20 13:00 89 20 108/58 (75) 100 03/01/20 12:00 66 03/01/20 12:00 40 03/01/20 12:00 98.8 70 20 117/58 (77) 100 03/01/20 12:00 Mechanical Ventilator Mechanical Ventilator 03/01/20 11:10 65 20 40 03/01/20 11:00 69 20 118/58 (78) 100 03/01/20 10:00 71 20 123/61 (81) 100 Height (Feet): 5 Height (Inches): 4.00 Weight (Pounds): 158 HEENT: other - orally intubated Respiratory/Chest: other - left chast tube, on ventilator, Cardiovascular: normal rate Abdomen: soft, non tender, other - GT & rectal tube Extremities: other - mild hand edema Neurologic/Psychiatric: other - opens eyes Laboratory Tests Test 03/02/20 03:40 White Blood Count 12.0 K/UL (4.8-10.8) H Red Blood Count 2.77 M/UL (4.20-5.40) L Hemoglobin 8.6 G/DL (12.0-16.0) L Hematocrit 27.1 % (37.0-47.0) L Mean Corpuscular Volume 98 FL (80-99) # Mean Corpuscular Hemoglobin 31.1 PG (27.0-31.0) H Mean Corpuscular Hemoglobin Concent 31.8 G/DL (32.0-36.0) L Red Cell Distribution Width 14.2 % (11.6-14.8) Platelet Count 264 K/UL (150-450) Mean Platelet Volume 9.7 FL (6.5-10.1) Neutrophils (%) (Auto) 68.0 % (45.0-75.0) Lymphocytes (%) (Auto) 25.5 % (20.0-45.0) Monocytes (%) (Auto) 3.8 % (1.0-10.0) Eosinophils (%) (Auto) 2.0 % (0.0-3.0) Basophils (%) (Auto) 0.6 % (0.0-2.0) Sodium Level 140 MMOL/L (136-145) Potassium Level 3.7 MMOL/L (3.5-5.1) Chloride Level 106 MMOL/L (98-107) Carbon Dioxide Level 25 MMOL/L (21-32) Anion Gap 9 mmol/L (5-15) Blood Urea Nitrogen 9 mg/dL (7-18) Creatinine 0.9 MG/DL (0.55-1.30) Estimat Glomerular Filtration Rate > 60 mL/min (>60) Glucose Level 100 MG/DL (74-106) Calcium Level 8.4 MG/DL (8.5-10.1) L Phosphorus Level 4.1 MG/DL (2.5-4.9) Magnesium Level 2.1 MG/DL (1.8-2.4) Total Bilirubin 0.6 MG/DL (0.2-1.0) Aspartate Amino Transf (AST/SGOT) 26 U/L (15-37) Alanine Aminotransferase (ALT/SGPT) 32 U/L (12-78) Alkaline Phosphatase 217 U/L (46-116) H Total Protein 6.3 G/DL (6.4-8.2) L Albumin 2.5 G/DL (3.4-5.0) L Globulin 3.8 g/dL Albumin/Globulin Ratio 0.7 (1.0-2.7) L Phenytoin (Dilantin) Level 4.2 ug/mL (10-20) L Current Medications Medications (Trade) Dose Ordered Sig/Bere Route PRN Reason Start Time Stop Time Status Last Admin Dose Admin Acetaminophen (Tylenol) 650 mg Q4H PRN GT Temp >100.5 02/19/20 22:00 03/20/20 21:59 02/26/20 15:50 Chlorhexidine Gluconate (Jane-Hex 2%) 1 applic DAILY@2000 TOPIC 5/17/20 20:00 05/20/20 19:59 03/01/20 19:58 Dopamine HCl/ Dextrose 250 ml @ 0 mls/hr Q24H IV 02/19/20 21:00 05/19/20 20:59 02/21/20 03:10 Famotidine (Pepcid) 20 mg BID GT 02/27/20 18:00 05/27/20 17:59 03/02/20 08:31 Levetiracetam 100 ml @ 400 mls/hr Q12HR IVPB 02/20/20 09:00 05/20/20 08:59 03/02/20 08:32 Levofloxacin (Levaquin) 750 mg DAILY GT 02/27/20 10:15 03/05/20 10:14 03/02/20 08:31 Metronidazole (Flagyl) 500 mg Q8HR GT 02/27/20 14:00 03/05/20 13:59 03/02/20 05:42 Midodrine (Pro-Amatine) 10 mg Q8HR GT 02/27/20 14:00 05/25/20 13:59 03/02/20 05:42 Norepinephrine Bitartrate 16 mg/ Dextrose 566 ml @ 0 mls/hr Q24H IV 02/22/20 23:00 03/23/20 22:59 02/24/20 00:12 Phenytoin (Dilantin) 200 mg Q12H IVP 02/29/20 21:00 03/27/20 20:59 03/02/20 08:32 Potassium Chloride (K-Dur) 20 meq BID GT 02/27/20 18:00 05/24/20 17:59 03/02/20 08:32 Prabhakar Guaman MD March 02, 2020 09:58
--- NOTE | 2020-03-02 10:01 | Nephrology Progress Note ---
Assessment/Plan Problem List: (1) Electrolyte imbalance (2) Elevated liver enzymes (3) Respiratory failure (4) Hypoalbuminemia (5) Proteinuria (6) Leukocytosis Assessment HypoKalemia Proteinuria, hypoalbuminemia, BUN and creatinine within normal range Chronic respiratory failure Status post left pneumothorax with chest tube in place Transaminitis Leukocytosis Sepsis, bacteremia with gram-positive cocci Anoxic encephalopathy Seizure disorder Penicillin allergy Hypertension Plan March 02: Renal parameters stable. RN reports that the family are not due to decide for terminal extubation. Patient is DNR. March 01: Renal parameters stable. Continue per consultants. Continue to monitor renal parameters on Dilantin level. February 28: Electrolytes within normal limit. Dilantin level somewhat low. Will adjust Dilantin dose. February 27: Potassium and phosphate supplement. Magnesium supplement. C. difficile negative. Check Dilantin level tomorrow February 26: Potassium is low again most likely due to diarrhea Will stop IV Reglan Will order stool for C. difficile Continue adjusting Dilantin level and continue on Midodrine Discussed with RN February 25: More potassium and magnesium supplement today Increase GT feeding Adjust Dilantin dose Increase midodrine Continue to monitor her electrolytes and renal parameters Discussed with RN Per orders February 24: Today's lab results noted. Serum potassium now within acceptable range GT tube is now clamped will start GT feeding. Continue IV Reglan. DC IV fluid and IV Lasix. Monitor electrolytes and renal parameters. Midodrine through GT tube for blood pressure below 100 systolic Discussed with RN February 23: We will clamp the GT and disconnected from suction Increase Protonix to every 12 hours IV IV Reglan 100 mEq of KCl intravenously Continue to monitor electrolytes Discussed with RN February 22: Low potassium is replaced intravenously and via GT Stool for C. difficile sent Will monitor electrolytes Continue per consultants regarding normalizing LFTs and underlying sepsis February 21: Leukocytosis worsened, Blood pressure borderline low LFTs remain elevated Abnormal magnesium potassium and phosphorus on the can panel Supplements for potassium magnesium and phosphorus ordered and continue as needed Continue to check calcium and phosphorus and liver function tests Continue per ID and pulmonary Keep the blood pressure and blood sugar in check Per orders Subjective ROS Limited/Unobtainable: Yes Objective Objective Last 24 Hour Vital Signs Date Time Temp Pulse Resp B/P (MAP) Pulse Ox O2 Delivery O2 Flow Rate FiO2 03/02/20 07:36 92 22 40 03/02/20 06:30 74 20 03/02/20 06:00 82 20 107/46 (66) 100 03/02/20 05:00 84 20 105/53 (70) 100 03/02/20 04:00 Mechanical Ventilator Mechanical Ventilator 03/02/20 04:00 100 03/02/20 04:00 40 03/02/20 04:00 99.0 82 20 113/57 (75) 100 03/02/20 03:08 94 25 40 03/02/20 03:00 81 20 103/54 (70) 100 03/02/20 02:00 96 11 108/52 (70) 100 03/02/20 01:00 78 8 114/56 (75) 100 03/02/20 00:00 Mechanical Ventilator Mechanical Ventilator 03/02/20 00:00 40 03/02/20 00:00 99.2 87 4 112/46 (68) 100 03/01/20 23:00 88 19 102/45 (64) 100 03/01/20 22:00 98 20 112/56 (74) 100 03/01/20 21:57 106/59 03/01/20 21:54 98 22 40 03/01/20 21:00 97 20 106/59 (75) 100 03/01/20 20:50 110/55 03/01/20 20:00 101 03/01/20 20:00 Mechanical Ventilator Mechanical Ventilator 03/01/20 20:00 99.8 101 20 105/55 (72) 100 03/01/20 20:00 40 03/01/20 19:08 102 24 40 03/01/20 19:00 103 20 107/56 (73) 100 03/01/20 18:00 105 20 105/57 (73) 100 03/01/20 17:00 87 20 108/55 (72) 100 03/01/20 16:00 99.3 93 23 119/66 (83) 100 03/01/20 16:00 81 03/01/20 16:00 40 03/01/20 16:00 Mechanical Ventilator Mechanical Ventilator 03/01/20 15:15 82 20 40 03/01/20 15:00 76 20 116/57 (76) 100 03/01/20 14:00 83 20 123/67 (85) 100 03/01/20 13:00 89 20 108/58 (75) 100 03/01/20 12:00 66 03/01/20 12:00 40 03/01/20 12:00 98.8 70 20 117/58 (77) 100 03/01/20 12:00 Mechanical Ventilator Mechanical Ventilator 03/01/20 11:10 65 20 40 03/01/20 11:00 69 20 118/58 (78) 100 03/01/20 10:00 71 20 123/61 (81) 100 Intake and Output 03/01/20 03/02/20 19:00 07:00 Intake Total 640 ml 670 ml Output Total 1365 ml 1300 ml Balance -725 ml -630 ml Intake Free Water 180 ml 90 ml IV Total 100 ml 100 ml Tube Feeding 360 ml 480 ml Output Urine Total 1365 ml 1200 ml Stool Total 100 ml Chest Tube Drainage Total 0 ml Laboratory Tests 03/02/20 03:40: White Blood Count 12.0H, Red Blood Count 2.77L, Hemoglobin 8.6L, Hematocrit 27.1L, Mean Corpuscular Volume 98#, Mean Corpuscular Hemoglobin 31.1H, Mean Corpuscular Hemoglobin Concent 31.8L, Red Cell Distribution Width 14.2, Platelet Count 264, Mean Platelet Volume 9.7, Neutrophils (%) (Auto) 68.0, Lymphocytes (%) (Auto) 25.5, Monocytes (%) (Auto) 3.8, Eosinophils (%) (Auto) 2.0, Basophils (%) (Auto) 0.6, Sodium Level 140, Potassium Level 3.7, Chloride Level 106, Carbon Dioxide Level 25, Anion Gap 9, Blood Urea Nitrogen 9, Creatinine 0.9, Estimat Glomerular Filtration Rate > 60, Glucose Level 100, Calcium Level 8.4L, Phosphorus Level 4.1, Magnesium Level 2.1, Total Bilirubin 0.6, Aspartate Amino Transf (AST/SGOT) 26, Alanine Aminotransferase (ALT/SGPT) 32, Alkaline Phosphatase 217H, Total Protein 6.3L, Albumin 2.5L, Globulin 3.8, Albumin/Globulin Ratio 0.7L, Phenytoin (Dilantin) Level 4.2L Height (Feet): 5 Height (Inches): 4.00 Weight (Pounds): 158 General Appearance: no apparent distress EENT: other - Intubated on mechanical ventilation Neck: pain on motion Cardiovascular: tachycardia Respiratory/Chest: decreased breath sounds Abdomen: distended Objective No change Fouladian,Erich MD March 02, 2020 10:01
--- NOTE | 2020-03-02 10:42 | Surgery Progress Note ---
Surgery Progress Note Subjective Additional Comments daughters at bedside waiting for her SO then plan for extubation and comfort care Objective Last 24 Hour Vital Signs Date Time Temp Pulse Resp B/P (MAP) Pulse Ox O2 Delivery O2 Flow Rate FiO2 03/02/20 10:00 104 20 137/70 (92) 100 03/02/20 09:00 82 20 122/64 (83) 100 03/02/20 08:00 40 03/02/20 08:00 86 20 123/67 (85) 100 03/02/20 08:00 Mechanical Ventilator Mechanical Ventilator 03/02/20 07:36 92 22 40 03/02/20 07:00 99.3 73 19 115/60 (78) 100 03/02/20 06:30 74 20 03/02/20 06:00 82 20 107/46 (66) 100 03/02/20 05:00 84 20 105/53 (70) 100 03/02/20 04:00 Mechanical Ventilator Mechanical Ventilator 03/02/20 04:00 100 03/02/20 04:00 40 03/02/20 04:00 99.0 82 20 113/57 (75) 100 03/02/20 03:08 94 25 40 03/02/20 03:00 81 20 103/54 (70) 100 03/02/20 02:00 96 11 108/52 (70) 100 03/02/20 01:00 78 8 114/56 (75) 100 03/02/20 00:00 Mechanical Ventilator Mechanical Ventilator 03/02/20 00:00 40 03/02/20 00:00 99.2 87 4 112/46 (68) 100 03/01/20 23:00 88 19 102/45 (64) 100 03/01/20 22:00 98 20 112/56 (74) 100 03/01/20 21:57 106/59 03/01/20 21:54 98 22 40 03/01/20 21:00 97 20 106/59 (75) 100 03/01/20 20:50 110/55 03/01/20 20:00 101 03/01/20 20:00 Mechanical Ventilator Mechanical Ventilator 03/01/20 20:00 99.8 101 20 105/55 (72) 100 03/01/20 20:00 40 03/01/20 19:08 102 24 40 03/01/20 19:00 103 20 107/56 (73) 100 03/01/20 18:00 105 20 105/57 (73) 100 03/01/20 17:00 87 20 108/55 (72) 100 03/01/20 16:00 99.3 93 23 119/66 (83) 100 03/01/20 16:00 81 03/01/20 16:00 40 03/01/20 16:00 Mechanical Ventilator Mechanical Ventilator 03/01/20 15:15 82 20 40 03/01/20 15:00 76 20 116/57 (76) 100 03/01/20 14:00 83 20 123/67 (85) 100 03/01/20 13:00 89 20 108/58 (75) 100 03/01/20 12:00 66 03/01/20 12:00 40 03/01/20 12:00 98.8 70 20 117/58 (77) 100 03/01/20 12:00 Mechanical Ventilator Mechanical Ventilator 03/01/20 11:10 65 20 40 03/01/20 11:00 69 20 118/58 (78) 100 I&O Intake and Output 03/01/20 03/02/20 19:00 07:00 Intake Total 640 ml 670 ml Output Total 1465 ml 1300 ml Balance -825 ml -630 ml Intake Free Water 180 ml 90 ml IV Total 100 ml 100 ml Tube Feeding 360 ml 480 ml Output Urine Total 1365 ml 1200 ml Stool Total 100 ml 100 ml Chest Tube Drainage Total 0 ml Dressing: other Wound: other Drains: other Cardiovascular: RSR Respiratory: decreased breath sounds Abdomen: soft, non-tender, present bowel sounds Extremities: no tenderness, no cyanosis Laboratory Tests Test 03/02/20 03:40 White Blood Count 12.0 K/UL (4.8-10.8) H Red Blood Count 2.77 M/UL (4.20-5.40) L Hemoglobin 8.6 G/DL (12.0-16.0) L Hematocrit 27.1 % (37.0-47.0) L Mean Corpuscular Volume 98 FL (80-99) # Mean Corpuscular Hemoglobin 31.1 PG (27.0-31.0) H Mean Corpuscular Hemoglobin Concent 31.8 G/DL (32.0-36.0) L Red Cell Distribution Width 14.2 % (11.6-14.8) Platelet Count 264 K/UL (150-450) Mean Platelet Volume 9.7 FL (6.5-10.1) Neutrophils (%) (Auto) 68.0 % (45.0-75.0) Lymphocytes (%) (Auto) 25.5 % (20.0-45.0) Monocytes (%) (Auto) 3.8 % (1.0-10.0) Eosinophils (%) (Auto) 2.0 % (0.0-3.0) Basophils (%) (Auto) 0.6 % (0.0-2.0) Sodium Level 140 MMOL/L (136-145) Potassium Level 3.7 MMOL/L (3.5-5.1) Chloride Level 106 MMOL/L (98-107) Carbon Dioxide Level 25 MMOL/L (21-32) Anion Gap 9 mmol/L (5-15) Blood Urea Nitrogen 9 mg/dL (7-18) Creatinine 0.9 MG/DL (0.55-1.30) Estimat Glomerular Filtration Rate > 60 mL/min (>60) Glucose Level 100 MG/DL (74-106) Calcium Level 8.4 MG/DL (8.5-10.1) L Phosphorus Level 4.1 MG/DL (2.5-4.9) Magnesium Level 2.1 MG/DL (1.8-2.4) Total Bilirubin 0.6 MG/DL (0.2-1.0) Aspartate Amino Transf (AST/SGOT) 26 U/L (15-37) Alanine Aminotransferase (ALT/SGPT) 32 U/L (12-78) Alkaline Phosphatase 217 U/L (46-116) H Total Protein 6.3 G/DL (6.4-8.2) L Albumin 2.5 G/DL (3.4-5.0) L Globulin 3.8 g/dL Albumin/Globulin Ratio 0.7 (1.0-2.7) L Phenytoin (Dilantin) Level 4.2 ug/mL (10-20) L Plan Problems: (1) Pneumothorax Assessment & Plan: cont chest tube to water seal am cxr will monitor hold removal until decision for trach made 1. Left-sided pneumothorax, approximately 50% by volume. 2. Extensive subcutaneous emphysema throughout the chest wall and neck soft tissues bilaterally. s/p chest tube Lungs: Persistent mild increased interstitial markings. The lungs are otherwise clear without focal consolidation. Pleural space: Interval significant improvement of the left-sided pneumothorax, no longer well seen. Heart: Unremarkable. No cardiomegaly. Mediastinum: Unremarkable. Bones/joints: Unremarkable. Soft tissues: Persistent but improved subcutaneous emphysema in the chest reed and neck soft tissues bilaterally. Tubes, lines and devices: Left-sided chest tube in place, with expected positioning. Endotracheal tube tip 3.2 cm above the emerita. Telemetry leads overlie the thorax. IMPRESSION: 1. Left-sided chest tube in place, with expected positioning. 2. Interval significant improvement of the left-sided pneumothorax, which is no longer well seen. 3. Persistent mild increased interstitial markings. This is nonspecific but may suggest mild interstitial edema or a mild pneumonitis. No focal consolidation. 4. Improved subcutaneous emphysema in the chest reed and neck soft tissues bilaterally. (2) Respiratory arrest Assessment & Plan: TRACH REMOVED, SITE BLEEDING. LT CHEST TUNE TO SUCTION. FEMORAL ACCESS will plan for trach new when stable (3) Respiratory distress (4) Tracheostomy complication Assessment & Plan: trach complication intubated on support will need to revise trach once stable thank you Hold on trach revision his family is considering terminal extubation At withdrawal of care discussed with team. number for sister Vee received spoke with Vee. this is 4th year when her sister has been this ill without improvement family has spoken and have decided for comfort care await decision on if they will come bedside for terminal extubation or not family decided comfort care plan terminal extubation after they arrive Additional Comments plan for extubation today comforrt care all questions answered Ant Lee March 02, 2020 10:42
--- NOTE | 2020-03-02 11:56 | Operative Note - PDOC ---
Operative Note Operative Note Date of Operation/Procedure: March 02, 2020 Pre-op Diagnosis: sepsis pneumothorax Procedure: left chest tube removal Post-op Diagnosis: same as pre-op Surgeon: susannah lee Anesthesia: moderate sedation, other Specimen: none Complications: none Condition: stable Estimated Blood Loss: none Drains: other Implant(s) used?: No Indications for Procedure plan comfort care plan terminal extubation plan removal of lines and tubes as per family wishes Description of Procedure patient made comfortable at bedside with family present. supine position. sutures cut. left chest tube removed. dressings applied. pt tolerated well Susannah Lee March 02, 2020 11:56
[2020-03-02] MEDS ORDERED: Morphine Sulfate 2mg/ml Inj(IV/IM USE ONLY) IVP SCH (12:00)
--- NOTE | 2020-03-02 12:07 | General Progress Note ---
Progress Note Progress Note Surgery: at direction of family plan for comfort measures. family at bedside including patients SO daughter and granddaughter came from [facility] to be here plan for extubation patient extubated at bedside will proceed to keep comfortable prn thank you Ant Lee March 02, 2020 12:07
--- NOTE | 2020-03-02 12:13 | Pulmonology Progress Note ---
Subjective ROS Limited/Unobtainable: Yes Interval Events: None new; remains intubated Constitutional: Denies: fever HEENT: Repors: no symptoms Respiratory: Reports: no symptoms Cardiovascular: Reports: no symptoms Gastrointestinal/Abdominal: Reports: diarrhea Allergies: Coded Allergies: PENICILLINS (Verified Allergy, Unknown, 02/14/18) Objective Last 24 Hour Vital Signs Date Time Temp Pulse Resp B/P (MAP) Pulse Ox O2 Delivery O2 Flow Rate FiO2 03/02/20 11:26 83 20 40 03/02/20 10:00 104 20 137/70 (92) 100 03/02/20 09:00 82 20 122/64 (83) 100 03/02/20 08:00 40 03/02/20 08:00 86 20 123/67 (85) 100 03/02/20 08:00 83 03/02/20 08:00 Mechanical Ventilator Mechanical Ventilator 03/02/20 07:36 92 22 40 03/02/20 07:00 99.3 73 19 115/60 (78) 100 03/02/20 06:30 74 20 03/02/20 06:00 82 20 107/46 (66) 100 03/02/20 05:00 84 20 105/53 (70) 100 03/02/20 04:00 Mechanical Ventilator Mechanical Ventilator 03/02/20 04:00 100 03/02/20 04:00 40 03/02/20 04:00 99.0 82 20 113/57 (75) 100 03/02/20 03:08 94 25 40 03/02/20 03:00 81 20 103/54 (70) 100 03/02/20 02:00 96 11 108/52 (70) 100 03/02/20 01:00 78 8 114/56 (75) 100 03/02/20 00:00 Mechanical Ventilator Mechanical Ventilator 03/02/20 00:00 40 03/02/20 00:00 99.2 87 4 112/46 (68) 100 03/01/20 23:00 88 19 102/45 (64) 100 03/01/20 22:00 98 20 112/56 (74) 100 03/01/20 21:57 106/59 03/01/20 21:54 98 22 40 03/01/20 21:00 97 20 106/59 (75) 100 03/01/20 20:50 110/55 03/01/20 20:00 101 03/01/20 20:00 Mechanical Ventilator Mechanical Ventilator 03/01/20 20:00 99.8 101 20 105/55 (72) 100 03/01/20 20:00 40 03/01/20 19:08 102 24 40 03/01/20 19:00 103 20 107/56 (73) 100 03/01/20 18:00 105 20 105/57 (73) 100 03/01/20 17:00 87 20 108/55 (72) 100 03/01/20 16:00 99.3 93 23 119/66 (83) 100 03/01/20 16:00 81 03/01/20 16:00 40 03/01/20 16:00 Mechanical Ventilator Mechanical Ventilator 03/01/20 15:15 82 20 40 03/01/20 15:00 76 20 116/57 (76) 100 03/01/20 14:00 83 20 123/67 (85) 100 03/01/20 13:00 89 20 108/58 (75) 100 Intake and Output 03/01/20 03/02/20 19:00 07:00 Intake Total 640 ml 670 ml Output Total 1465 ml 1300 ml Balance -825 ml -630 ml Intake Free Water 180 ml 90 ml IV Total 100 ml 100 ml Tube Feeding 360 ml 480 ml Output Urine Total 1365 ml 1200 ml Stool Total 100 ml 100 ml Chest Tube Drainage Total 0 ml General Appearance: no acute distress HEENT: normocephalic Respiratory: chest wall non-tender, lungs clear Cardiovascular: normal peripheral pulses Abdomen: normal bowel sounds Laboratory Tests 03/02/20 03:40: White Blood Count 12.0H, Red Blood Count 2.77L, Hemoglobin 8.6L, Hematocrit 27.1L, Mean Corpuscular Volume 98#, Mean Corpuscular Hemoglobin 31.1H, Mean Corpuscular Hemoglobin Concent 31.8L, Red Cell Distribution Width 14.2, Platelet Count 264, Mean Platelet Volume 9.7, Neutrophils (%) (Auto) 68.0, Lymphocytes (%) (Auto) 25.5, Monocytes (%) (Auto) 3.8, Eosinophils (%) (Auto) 2.0, Basophils (%) (Auto) 0.6, Sodium Level 140, Potassium Level 3.7, Chloride Level 106, Carbon Dioxide Level 25, Anion Gap 9, Blood Urea Nitrogen 9, Creatinine 0.9, Estimat Glomerular Filtration Rate > 60, Glucose Level 100, Calcium Level 8.4L, Phosphorus Level 4.1, Magnesium Level 2.1, Total Bilirubin 0.6, Aspartate Amino Transf (AST/SGOT) 26, Alanine Aminotransferase (ALT/SGPT) 32, Alkaline Phosphatase 217H, Total Protein 6.3L, Albumin 2.5L, Globulin 3.8, Albumin/Globulin Ratio 0.7L, Phenytoin (Dilantin) Level 4.2L Current Medications Medications (Trade) Dose Ordered Sig/Bere Route PRN Reason Start Time Stop Time Status Last Admin Dose Admin Acetaminophen (Tylenol) 650 mg Q4H PRN GT Temp >100.5 02/19/20 22:00 03/20/20 21:59 02/26/20 15:50 Chlorhexidine Gluconate (Jane-Hex 2%) 1 applic DAILY@2000 TOPIC 02/20/20 20:00 05/20/20 19:59 03/01/20 19:58 Dopamine HCl/ Dextrose 250 ml @ 0 mls/hr Q24H IV 02/19/20 21:00 05/19/20 20:59 02/21/20 03:10 Famotidine (Pepcid) 20 mg BID GT 02/27/20 18:00 05/27/20 17:59 03/02/20 08:31 Levetiracetam 100 ml @ 400 mls/hr Q12HR IVPB 02/20/20 09:00 05/20/20 08:59 03/02/20 08:32 Levofloxacin (Levaquin) 750 mg DAILY GT 02/27/20 10:15 03/05/20 10:14 03/02/20 08:31 Metronidazole (Flagyl) 500 mg Q8HR GT 02/27/20 14:00 03/05/20 13:59 03/02/20 05:42 Midodrine (Pro-Amatine) 10 mg Q8HR GT 02/27/20 14:00 05/25/20 13:59 03/02/20 05:42 Morphine Sulfate (Morphine Sulfate) 2 mg ONCE IVP 03/02/20 12:00 03/02/20 13:00 03/02/20 12:06 Norepinephrine Bitartrate 16 mg/ Dextrose 566 ml @ 0 mls/hr Q24H IV 02/22/20 23:00 03/23/20 22:59 02/24/20 00:12 Phenytoin (Dilantin) 200 mg Q12H IVP 02/29/20 21:00 03/27/20 20:59 03/02/20 08:32 Potassium Chloride (K-Dur) 20 meq BID GT 02/27/20 18:00 05/24/20 17:59 03/02/20 08:32 Assessment/Plan Assessment/Plan IMPRESSION: 1. Status post left pneumothorax with chest tube in place. 2. Tracheal bleeding, status post removal. 3. Respiratory failure, status post orotracheal intubation. 4. Transaminitis. 5. Leukocytosis. 6. Chronic encephalopathy. 7. Chronic respiratory failure. DISCUSSION: Continue assist-control mechanical ventilation. Discussed with family at bedside terminal extubation today Celestino Haile M.D. Celestino Haile MD March 02, 2020 12:13
[2020-03-02] MEDS ORDERED: Rate Change Narcotic Drip MISC PRN (13:15)
[2020-03-02] MEDS ORDERED: PCA Morphine 30mg/30ml IV PRN (13:15)
[2020-03-02] MEDS: Morphine Sulfate 2mg/ml Inj(IV/IM USE ONLY) IVP PRN ×2 (13:23→23:55)
[2020-03-02] MEDS: Narcotic Shift Volume MISC SCH ×2 (15:00→23:00)
--- NOTE | 2020-03-02 16:06 | Cardiac Electrophysiology PN ---
Assessment/Plan Assessment/Plan 1. Respiratory failure. Fu by Dr. Haile. S/P Terminal extubation today. Covid negative x 2 2. Paroxysmal atrial fibrillation, off anticoagulation in view of bleeding from the trach site. Converted to SR 3. Left Pneumothorax, status post Left chest tube placement to water seal on antibiotic. 4. S/P Septic Shock , off Levophed 5. Dysphagia, status post PEG placement. 6. Dementia and Chronic encephalopathy. 7. DNR DW RN Subjective Subjective In ICU off the vent and off pressors. Covid negative x2. Off Covid isolation Family at bedside Objective Last 24 Hour Vital Signs Date Time Temp Pulse Resp B/P (MAP) Pulse Ox O2 Delivery O2 Flow Rate FiO2 03/02/20 15:00 79 19 120/63 (82) 100 03/02/20 13:53 98.6 03/02/20 13:00 102 33 122/62 (82) 89 03/02/20 12:36 98.8 03/02/20 12:00 98.8 89 15 112/54 (73) 100 03/02/20 12:00 Mechanical Ventilator Mechanical Ventilator 03/02/20 12:00 94 03/02/20 11:26 83 20 40 03/02/20 11:00 81 20 118/63 (81) 100 03/02/20 10:00 104 20 137/70 (92) 100 03/02/20 09:00 82 20 122/64 (83) 100 03/02/20 08:00 40 03/02/20 08:00 86 20 123/67 (85) 100 03/02/20 08:00 83 03/02/20 08:00 Mechanical Ventilator Mechanical Ventilator 03/02/20 07:36 92 22 40 03/02/20 07:00 99.3 73 19 115/60 (78) 100 03/02/20 06:30 74 20 03/02/20 06:00 82 20 107/46 (66) 100 03/02/20 05:00 84 20 105/53 (70) 100 03/02/20 04:00 Mechanical Ventilator Mechanical Ventilator 03/02/20 04:00 100 03/02/20 04:00 40 03/02/20 04:00 99.0 82 20 113/57 (75) 100 03/02/20 03:08 94 25 40 03/02/20 03:00 81 20 103/54 (70) 100 03/02/20 02:00 96 11 108/52 (70) 100 03/02/20 01:00 78 8 114/56 (75) 100 03/02/20 00:00 Mechanical Ventilator Mechanical Ventilator 03/02/20 00:00 40 03/02/20 00:00 99.2 87 4 112/46 (68) 100 03/01/20 23:00 88 19 102/45 (64) 100 03/01/20 22:00 98 20 112/56 (74) 100 03/01/20 21:57 106/59 03/01/20 21:54 98 22 40 03/01/20 21:00 97 20 106/59 (75) 100 03/01/20 20:50 110/55 03/01/20 20:00 101 03/01/20 20:00 Mechanical Ventilator Mechanical Ventilator 03/01/20 20:00 99.8 101 20 105/55 (72) 100 03/01/20 20:00 40 03/01/20 19:08 102 24 40 03/01/20 19:00 103 20 107/56 (73) 100 03/01/20 18:00 105 20 105/57 (73) 100 03/01/20 17:00 87 20 108/55 (72) 100 Intake and Output 03/01/20 03/02/20 19:00 07:00 Intake Total 640 ml 670 ml Output Total 1465 ml 1300 ml Balance -825 ml -630 ml Intake Free Water 180 ml 90 ml IV Total 100 ml 100 ml Tube Feeding 360 ml 480 ml Output Urine Total 1365 ml 1200 ml Stool Total 100 ml 100 ml Chest Tube Drainage Total 0 ml Laboratory Tests Test 03/02/20 03:40 White Blood Count 12.0 K/UL (4.8-10.8) H Red Blood Count 2.77 M/UL (4.20-5.40) L Hemoglobin 8.6 G/DL (12.0-16.0) L Hematocrit 27.1 % (37.0-47.0) L Mean Corpuscular Volume 98 FL (80-99) # Mean Corpuscular Hemoglobin 31.1 PG (27.0-31.0) H Mean Corpuscular Hemoglobin Concent 31.8 G/DL (32.0-36.0) L Red Cell Distribution Width 14.2 % (11.6-14.8) Platelet Count 264 K/UL (150-450) Mean Platelet Volume 9.7 FL (6.5-10.1) Neutrophils (%) (Auto) 68.0 % (45.0-75.0) Lymphocytes (%) (Auto) 25.5 % (20.0-45.0) Monocytes (%) (Auto) 3.8 % (1.0-10.0) Eosinophils (%) (Auto) 2.0 % (0.0-3.0) Basophils (%) (Auto) 0.6 % (0.0-2.0) Sodium Level 140 MMOL/L (136-145) Potassium Level 3.7 MMOL/L (3.5-5.1) Chloride Level 106 MMOL/L (98-107) Carbon Dioxide Level 25 MMOL/L (21-32) Anion Gap 9 mmol/L (5-15) Blood Urea Nitrogen 9 mg/dL (7-18) Creatinine 0.9 MG/DL (0.55-1.30) Estimat Glomerular Filtration Rate > 60 mL/min (>60) Glucose Level 100 MG/DL (74-106) Calcium Level 8.4 MG/DL (8.5-10.1) L Phosphorus Level 4.1 MG/DL (2.5-4.9) Magnesium Level 2.1 MG/DL (1.8-2.4) Total Bilirubin 0.6 MG/DL (0.2-1.0) Aspartate Amino Transf (AST/SGOT) 26 U/L (15-37) Alanine Aminotransferase (ALT/SGPT) 32 U/L (12-78) Alkaline Phosphatase 217 U/L (46-116) H Total Protein 6.3 G/DL (6.4-8.2) L Albumin 2.5 G/DL (3.4-5.0) L Globulin 3.8 g/dL Albumin/Globulin Ratio 0.7 (1.0-2.7) L Phenytoin (Dilantin) Level 4.2 ug/mL (10-20) L Objective HEAD AND NECK: Tracheostomy is covered. LUNGS: Coarse rhonchi. CARDIOVASCULAR: Regular S1 and S2 with no gallop. She has a chest tube. ABDOMEN: Soft. EXTREMITIES: 1+ pitting edema.Contracted Dat Oh MD March 02, 2020 16:06
--- NOTE | 2020-03-02 22:30 | Progress Note ---
DATE: 03/02/2020 SUBJECTIVE: This is a 49-year-old female who came from the retirement, has a trach, had pulmonary arrest, the patient was resuscitated, intubated, family came today and terminally extubation. The patient is nonverbal, opens her eyes, looks comfortable. OBJECTIVE: VITAL SIGNS: Stable. Blood pressure 121/64, pulse 83, no fever. CHEST: Bilateral decreased breath sounds. CARDIOVASCULAR: Regular rhythm. ABDOMEN: Soft. G-tube in place. EXTREMITIES: CCE. LABORATORY AND DIAGNOSTIC DATA: White counts are 12,000, hemoglobin 8.6, BUN 9, creatinine 0.9. ASSESSMENT AND PLAN: 1. Acute cardiopulmonary arrest. 2. Metabolic encephalopathy. 3. Sepsis resolving. The patient terminally extubated on the comfort care, DNR/DNI, hold tube feeding. Discussed with charge nurse. Darin Delgado M.D. DR: Eve JOB#: [id number] CC:
[2020-03-03] VITALS (7 sets, daily range): BP systolic 117–139; BP diastolic 63–86
[2020-03-03] MEDS: Narcotic Shift Volume MISC SCH ×2 (07:00→19:13)
--- NOTE | 2020-03-03 10:13 | Nephrology Progress Note ---
Assessment/Plan Problem List: (1) Electrolyte imbalance (2) Elevated liver enzymes (3) Respiratory failure (4) Hypoalbuminemia (5) Proteinuria (6) Leukocytosis Assessment HypoKalemia Proteinuria, hypoalbuminemia, BUN and creatinine within normal range Chronic respiratory failure Status post left pneumothorax with chest tube in place Transaminitis Leukocytosis Sepsis, bacteremia with gram-positive cocci Anoxic encephalopathy Seizure disorder Penicillin allergy Hypertension Plan March 03: Patient is now terminally extubated. Is now transfer to [facility]. Appears comfortable. Medications all discontinued other than comfort care medication. No labs today. Not much to add from renal standpoint of view. Will follow-up as needed. March 02: Renal parameters stable. RN reports that the family are not due to decide for terminal extubation. Patient is DNR. March 01: Renal parameters stable. Continue per consultants. Continue to monitor renal parameters on Dilantin level. February 28: Electrolytes within normal limit. Dilantin level somewhat low. Will adjust Dilantin dose. February 27: Potassium and phosphate supplement. Magnesium supplement. C. difficile negative. Check Dilantin level tomorrow February 26: Potassium is low again most likely due to diarrhea Will stop IV Reglan Will order stool for C. difficile Continue adjusting Dilantin level and continue on Midodrine Discussed with RN February 25: More potassium and magnesium supplement today Increase GT feeding Adjust Dilantin dose Increase midodrine Continue to monitor her electrolytes and renal parameters Discussed with RN Per orders February 24: Today's lab results noted. Serum potassium now within acceptable range GT tube is now clamped will start GT feeding. Continue IV Reglan. DC IV fluid and IV Lasix. Monitor electrolytes and renal parameters. Midodrine through GT tube for blood pressure below 100 systolic Discussed with RN February 23: We will clamp the GT and disconnected from suction Increase Protonix to every 12 hours IV IV Reglan 100 mEq of KCl intravenously Continue to monitor electrolytes Discussed with RN February 22: Low potassium is replaced intravenously and via GT Stool for C. difficile sent Will monitor electrolytes Continue per consultants regarding normalizing LFTs and underlying sepsis February 21: Leukocytosis worsened, Blood pressure borderline low LFTs remain elevated Abnormal magnesium potassium and phosphorus on the can panel Supplements for potassium magnesium and phosphorus ordered and continue as needed Continue to check calcium and phosphorus and liver function tests Continue per ID and pulmonary Keep the blood pressure and blood sugar in check Per orders Subjective ROS Limited/Unobtainable: No Constitutional: Reports: malaise Objective Objective Last 24 Hour Vital Signs Date Time Temp Pulse Resp B/P (MAP) Pulse Ox O2 Delivery O2 Flow Rate FiO2 03/03/20 08:00 98.8 96 19 117/78 (91) 99 03/03/20 04:00 97.7 110 32 139/86 (103) 92 03/03/20 00:00 Nasal Cannula 2.0 Nasal Cannula 2.0 Nasal Cannula 2.0 03/03/20 00:00 99.0 121 30 128/63 (84) 92 03/02/20 23:00 97 23 106/60 (75) 100 03/02/20 22:00 93 25 103/56 (72) 96 03/02/20 21:00 90 3 115/58 (77) 96 03/02/20 20:00 Nasal Cannula 2.0 Nasal Cannula 2.0 Nasal Cannula 2.0 03/02/20 20:00 83 03/02/20 20:00 97.5 87 23 112/55 (74) 93 03/02/20 19:00 90 22 115/55 (75) 98 03/02/20 18:00 81 20 102/52 (69) 99 03/02/20 17:00 83 21 121/64 (83) 100 03/02/20 16:00 Nasal Cannula 2.0 Mechanical Ventilator 03/02/20 16:00 77 03/02/20 16:00 98.6 77 21 118/66 (83) 99 03/02/20 15:00 79 19 120/63 (82) 100 03/02/20 14:00 85 18 122/62 (82) 93 03/02/20 13:53 98.6 03/02/20 13:00 102 33 122/62 (82) 89 03/02/20 12:36 98.8 03/02/20 12:15 Nasal Cannula 2.0 03/02/20 12:00 98.8 89 15 112/54 (73) 100 03/02/20 12:00 Mechanical Ventilator Mechanical Ventilator 03/02/20 12:00 94 03/02/20 11:26 83 20 40 03/02/20 11:00 81 20 118/63 (81) 100 Intake and Output 03/02/20 03/03/20 19:00 07:00 Intake Total 320 ml Output Total 1770 ml 525 ml Balance -1450 ml -525 ml Intake Free Water 60 ml IV Total 100 ml Tube Feeding 160 ml Output Urine Total 1720 ml 475 ml Stool Total 50 ml 50 ml Current Medications Medications (Trade) Dose Ordered Sig/Bere Route PRN Reason Start Time Stop Time Status Last Admin Dose Admin Miscellaneous Medication (Narcotic Drip Rate Change) 1 ea DAILY PRN MISC . 03/02/20 13:15 04/01/20 13:14 Miscellaneous Medication (Narcotic Shift Volume) 1 ea Q8HR@,, MISC 03/02/20 15:00 04/01/20 14:59 Morphine Sulfate 30 ml @ 0 mls/hr [employer]PERATOR Protocol PRN IV COMFORT CARE 03/02/20 13:15 03/04/20 13:14 Morphine Sulfate (Morphine Sulfate) 2 mg Q2H PRN IVP COMFORT CARE 03/02/20 13:15 03/09/20 13:14 03/02/20 23:55 Height (Feet): 5 Height (Inches): 4.00 Weight (Pounds): 159 General Appearance: no apparent distress Cardiovascular: tachycardia Abdomen: soft Objective No change Erich Link MD March 03, 2020 10:13
[2020-03-03] MEDS: PCA Morphine 30mg/30ml IV PRN (10:52)
--- NOTE | 2020-03-03 11:10 | Infectious Diseases Prog Note ---
"Assessment/Plan Assessment/Plan antibiotics : none A 1. pseudomonas | stenotrophomonas pneumonia COVID 19 test negative x 2 2. respiratory failure 3. shock improving 4. + blood cultures with coag neg staph likely contaminated 5. pneumothorax 6. hypertension 7. hydrocephalus 8, leucocytosis improving P 1. patient on comfort measures 2. will sign off Subjective ROS Limited/Unobtainable: Yes Allergies: Coded Allergies: PENICILLINS (Verified Allergy, Unknown, 02/14/18) Objective Vital Signs Last 24 Hour Vital Signs Date Time Temp Pulse Resp B/P (MAP) Pulse Ox O2 Delivery O2 Flow Rate FiO2 03/03/20 08:00 98.8 96 19 117/78 (91) 99 03/03/20 04:00 97.7 110 32 139/86 (103) 92 03/03/20 00:00 Nasal Cannula 2.0 Nasal Cannula 2.0 Nasal Cannula 2.0 03/03/20 00:00 99.0 121 30 128/63 (84) 92 03/02/20 23:00 97 23 106/60 (75) 100 03/02/20 22:00 93 25 103/56 (72) 96 03/02/20 21:00 90 3 115/58 (77) 96 03/02/20 20:00 Nasal Cannula 2.0 Nasal Cannula 2.0 Nasal Cannula 2.0 03/02/20 20:00 83 03/02/20 20:00 97.5 87 23 112/55 (74) 93 03/02/20 19:00 90 22 115/55 (75) 98 03/02/20 18:00 81 20 102/52 (69) 99 03/02/20 17:00 83 21 121/64 (83) 100 03/02/20 16:00 Nasal Cannula 2.0 Mechanical Ventilator 03/02/20 16:00 77 03/02/20 16:00 98.6 77 21 118/66 (83) 99 03/02/20 15:00 79 19 120/63 (82) 100 03/02/20 14:00 85 18 122/62 (82) 93 03/02/20 13:53 98.6 03/02/20 13:00 102 33 122/62 (82) 89 03/02/20 12:36 98.8 03/02/20 12:15 Nasal Cannula 2.0 03/02/20 12:00 98.8 89 15 112/54 (73) 100 03/02/20 12:00 Mechanical Ventilator Mechanical Ventilator 03/02/20 12:00 94 03/02/20 11:26 83 20 40 Height (Feet): 5 Height (Inches): 4.00 Weight (Pounds): 159 Respiratory/Chest: lungs clear Cardiovascular: normal rate, regular rhythm, no gallop/murmur Abdomen: soft, non tender, other - GT Extremities: no edema Current Medications Medications (Trade) Dose Ordered Sig/Bere Route PRN Reason Start Time Stop Time Status Last Admin Dose Admin Miscellaneous Medication (Narcotic Drip Rate Change) 1 ea DAILY PRN MISC . 03/02/20 13:15 04/01/20 13:14 Miscellaneous Medication (Narcotic Shift Volume) 1 ea Q8HR@07,15,23 MISC 03/02/20 15:00 04/01/20 14:59 Morphine Sulfate 30 ml @ 2 mls/hr [employer]LE R[employer]FER Protocol PRN IV COMFORT CARE 03/03/20 10:39 03/05/20 10:38 03/03/20 10:52 Lulu Gurrola MD March 03, 2020 11:10"
--- NOTE | 2020-03-03 12:08 | Pulmonology Progress Note ---
Subjective ROS Limited/Unobtainable: Yes Interval Events: Terminally extubated yesterday Constitutional: Denies: fever HEENT: Repors: no symptoms Respiratory: Reports: no symptoms Cardiovascular: Reports: no symptoms Gastrointestinal/Abdominal: Reports: diarrhea Genitourinary: Reports: no symptoms Neurologic: Reports: no symptoms Allergies: Coded Allergies: PENICILLINS (Verified Allergy, Unknown, 02/14/18) Objective Last 24 Hour Vital Signs Date Time Temp Pulse Resp B/P (MAP) Pulse Ox O2 Delivery O2 Flow Rate FiO2 03/03/20 08:00 98.8 96 19 117/78 (91) 99 03/03/20 04:00 97.7 110 32 139/86 (103) 92 03/03/20 00:00 Nasal Cannula 2.0 Nasal Cannula 2.0 Nasal Cannula 2.0 03/03/20 00:00 99.0 121 30 128/63 (84) 92 03/02/20 23:00 97 23 106/60 (75) 100 03/02/20 22:00 93 25 103/56 (72) 96 03/02/20 21:00 90 3 115/58 (77) 96 03/02/20 20:00 Nasal Cannula 2.0 Nasal Cannula 2.0 Nasal Cannula 2.0 03/02/20 20:00 83 03/02/20 20:00 97.5 87 23 112/55 (74) 93 03/02/20 19:00 90 22 115/55 (75) 98 03/02/20 18:00 81 20 102/52 (69) 99 03/02/20 17:00 83 21 121/64 (83) 100 03/02/20 16:00 Nasal Cannula 2.0 Mechanical Ventilator 03/02/20 16:00 77 03/02/20 16:00 98.6 77 21 118/66 (83) 99 03/02/20 15:00 79 19 120/63 (82) 100 03/02/20 14:00 85 18 122/62 (82) 93 03/02/20 13:53 98.6 03/02/20 13:00 102 33 122/62 (82) 89 03/02/20 12:36 98.8 03/02/20 12:15 Nasal Cannula 2.0 Intake and Output 03/02/20 03/03/20 19:00 07:00 Intake Total 320 ml Output Total 1770 ml 525 ml Balance -1450 ml -525 ml Intake Free Water 60 ml IV Total 100 ml Tube Feeding 160 ml Output Urine Total 1720 ml 475 ml Stool Total 50 ml 50 ml General Appearance: no acute distress HEENT: normocephalic Respiratory: chest wall non-tender, decreased breath sounds Cardiovascular: normal peripheral pulses Abdomen: normal bowel sounds Current Medications Medications (Trade) Dose Ordered Sig/Bere Route PRN Reason Start Time Stop Time Status Last Admin Dose Admin Miscellaneous Medication (Narcotic Drip Rate Change) 1 ea DAILY PRN MISC . 03/02/20 13:15 04/01/20 13:14 Miscellaneous Medication (Narcotic Shift Volume) 1 ea Q8HR@07,15,23 MISC 03/02/20 15:00 04/01/20 14:59 Morphine Sulfate 30 ml @ 2 mls/hr [employer]DER Protocol PRN IV COMFORT CARE 03/03/20 10:39 03/05/20 10:38 03/03/20 10:52 Assessment/Plan Assessment/Plan IMPRESSION: 1. Status post left pneumothorax with chest tube in place. 2. Tracheal bleeding, status post removal. 3. Respiratory failure, status post orotracheal intubation. 4. Transaminitis. 5. Leukocytosis. 6. Chronic encephalopathy. 7. Chronic respiratory failure. DISCUSSION: Comfort care Will start MS jared Discussed with RN at bedside Tarun Ellis Omar Syed MD March 03, 2020 12:08
--- NOTE | 2020-03-03 13:07 | Cardiac Electrophysiology PN ---
Assessment/Plan Assessment/Plan 1. Respiratory failure. Fu by Dr. Haile. S/P Terminal extubation . Covid negative x 2 2. Paroxysmal atrial fibrillation, off anticoagulation in view of bleeding from the trach site. Converted to SR 3. Left Pneumothorax 4. S/P Septic Shock , off Levophed 5. Dysphagia, status post PEG placement. 6. Dementia and Chronic encephalopathy. 7. Comfort care on morphine drip. DW RN Subjective Subjective Covid negative x2. Off Covid isolation. Comfort care on morphine drip Objective Last 24 Hour Vital Signs Date Time Temp Pulse Resp B/P (MAP) Pulse Ox O2 Delivery O2 Flow Rate FiO2 03/03/20 12:00 98.0 87 18 121/76 (91) 97 03/03/20 08:00 98.8 96 19 117/78 (91) 99 03/03/20 04:00 97.7 110 32 139/86 (103) 92 03/03/20 00:00 Nasal Cannula 2.0 Nasal Cannula 2.0 Nasal Cannula 2.0 03/03/20 00:00 99.0 121 30 128/63 (84) 92 03/02/20 23:00 97 23 106/60 (75) 100 03/02/20 22:00 93 25 103/56 (72) 96 03/02/20 21:00 90 3 115/58 (77) 96 03/02/20 20:00 Nasal Cannula 2.0 Nasal Cannula 2.0 Nasal Cannula 2.0 03/02/20 20:00 83 03/02/20 20:00 97.5 87 23 112/55 (74) 93 03/02/20 19:00 90 22 115/55 (75) 98 03/02/20 18:00 81 20 102/52 (69) 99 03/02/20 17:00 83 21 121/64 (83) 100 03/02/20 16:00 Nasal Cannula 2.0 Mechanical Ventilator 03/02/20 16:00 77 03/02/20 16:00 98.6 77 21 118/66 (83) 99 03/02/20 15:00 79 19 120/63 (82) 100 03/02/20 14:00 85 18 122/62 (82) 93 03/02/20 13:53 98.6 Intake and Output 03/02/20 03/03/20 18:59 06:59 Intake Total 390 ml Output Total 1820 ml 575 ml Balance -1430 ml -575 ml Intake Free Water 90 ml IV Total 100 ml Tube Feeding 200 ml Output Urine Total 1770 ml 525 ml Stool Total 50 ml 50 ml Objective HEAD AND NECK: Tracheostomy is covered. LUNGS: Coarse rhonchi. CARDIOVASCULAR: Regular S1 and S2 with no gallop. She has a chest tube. ABDOMEN: Soft. EXTREMITIES: 1+ pitting edema.Contracted Dat Oh MD March 03, 2020 13:07
--- NOTE | 2020-03-03 15:48 | Surgery Progress Note ---
Surgery Progress Note Subjective Procedure Performed left chest tube removal Additional Comments extubated comfortable on drip labs noted family at bedside discussed with residential supervisor plan d/c Objective Last 24 Hour Vital Signs Date Time Temp Pulse Resp B/P (MAP) Pulse Ox O2 Delivery O2 Flow Rate FiO2 03/03/20 12:00 98.0 87 18 121/76 (91) 97 03/03/20 08:00 98.8 96 19 117/78 (91) 99 03/03/20 04:00 97.7 110 32 139/86 (103) 92 03/03/20 00:00 Nasal Cannula 2.0 Nasal Cannula 2.0 Nasal Cannula 2.0 03/03/20 00:00 99.0 121 30 128/63 (84) 92 03/02/20 23:00 97 23 106/60 (75) 100 03/02/20 22:00 93 25 103/56 (72) 96 03/02/20 21:00 90 3 115/58 (77) 96 03/02/20 20:00 Nasal Cannula 2.0 Nasal Cannula 2.0 Nasal Cannula 2.0 03/02/20 20:00 83 03/02/20 20:00 97.5 87 23 112/55 (74) 93 03/02/20 19:00 90 22 115/55 (75) 98 03/02/20 18:00 81 20 102/52 (69) 99 03/02/20 17:00 83 21 121/64 (83) 100 03/02/20 16:00 Nasal Cannula 2.0 Mechanical Ventilator 03/02/20 16:00 77 03/02/20 16:00 98.6 77 21 118/66 (83) 99 I&O Intake and Output 03/02/20 03/03/20 19:00 07:00 Intake Total 320 ml Output Total 1770 ml 525 ml Balance -1450 ml -525 ml Intake Free Water 60 ml IV Total 100 ml Tube Feeding 160 ml Output Urine Total 1720 ml 475 ml Stool Total 50 ml 50 ml Dressing: other Wound: other Drains: other Cardiovascular: RSR Respiratory: decreased breath sounds Abdomen: soft, present bowel sounds Extremities: no cyanosis, other Plan Problems: (1) Pneumothorax Assessment & Plan: cont chest tube to water seal am cxr will monitor hold removal until decision for trach made 1. Left-sided pneumothorax, approximately 50% by volume. 2. Extensive subcutaneous emphysema throughout the chest wall and neck soft tissues bilaterally. s/p chest tube Lungs: Persistent mild increased interstitial markings. The lungs are otherwise clear without focal consolidation. Pleural space: Interval significant improvement of the left-sided pneumothorax, no longer well seen. Heart: Unremarkable. No cardiomegaly. Mediastinum: Unremarkable. Bones/joints: Unremarkable. Soft tissues: Persistent but improved subcutaneous emphysema in the chest reed and neck soft tissues bilaterally. Tubes, lines and devices: Left-sided chest tube in place, with expected positioning. Endotracheal tube tip 3.2 cm above the emerita. Telemetry leads overlie the thorax. IMPRESSION: 1. Left-sided chest tube in place, with expected positioning. 2. Interval significant improvement of the left-sided pneumothorax, which is no longer well seen. 3. Persistent mild increased interstitial markings. This is nonspecific but may suggest mild interstitial edema or a mild pneumonitis. No focal consolidation. 4. Improved subcutaneous emphysema in the chest reed and neck soft tissues bilaterally. chest tube out comfortable (2) Respiratory arrest Assessment & Plan: TRACH REMOVED, SITE BLEEDING. LT CHEST TUNE TO SUCTION. FEMORAL ACCESS will plan for trach new when stable (3) Respiratory distress (4) Tracheostomy complication Assessment & Plan: trach complication intubated on support will need to revise trach once stable thank you Hold on trach revision his family is considering terminal extubation At withdrawal of care discussed with team. number for sister Vee received spoke with Vee. this is 4th year when her sister has been this ill without improvement family has spoken and have decided for comfort care await decision on if they will come bedside for terminal extubation or not family decided comfort care plan terminal extubation after they arrive extubated remaining comfortable on drip d/c plan Ant Lee March 03, 2020 15:48
[2020-03-04] VITALS: BP 122/80
[2020-03-04] MEDS: PCA Morphine 30mg/30ml IV PRN (01:00)
[2020-03-04 01:10] VITALS: BP 122/80
[2020-03-04 01:11] VITALS: BP 122/80
[2020-03-04 04:00] VITALS: BP 114/68
[2020-03-04 05:03] VITALS: BP 114/68
[2020-03-04] MEDS: Narcotic Shift Volume MISC SCH (07:23)
[2020-03-04 08:00] VITALS: BP 105/66
[2020-03-04] MEDS ORDERED: Tubing IV Secondary IV ONE (09:05)
[2020-03-04] MEDS ORDERED: NS 500ML ONE (09:05)
[2020-03-04] MEDS ORDERED: NS 275ml ONE ×2 (09:05)
--- NOTE | 2020-03-04 09:20 | Pulmonology Progress Note ---
Subjective ROS Limited/Unobtainable: Yes Interval Events: Terminally extubated 2 days ago Constitutional: Denies: fever HEENT: Repors: no symptoms Respiratory: Reports: no symptoms Cardiovascular: Reports: no symptoms Gastrointestinal/Abdominal: Reports: diarrhea Genitourinary: Reports: no symptoms Neurologic: Reports: no symptoms Allergies: Coded Allergies: PENICILLINS (Verified Allergy, Unknown, 02/14/18) Objective Last 24 Hour Vital Signs Date Time Temp Pulse Resp B/P (MAP) Pulse Ox O2 Delivery O2 Flow Rate FiO2 03/04/20 08:00 99.1 100 20 105/66 (79) 100 03/04/20 05:03 104 21 97 03/04/20 04:00 98.6 104 32 114/68 (83) 95 03/04/20 01:30 97.8 03/04/20 01:11 100 21 98 03/04/20 01:10 100 21 98 03/04/20 00:00 97.8 100 20 122/80 (94) 98 03/03/20 21:10 99 20 98 03/03/20 20:00 98.2 95 20 117/71 (86) 98 03/03/20 16:00 98.3 83 18 118/79 (92) 98 03/03/20 12:00 98.0 87 18 121/76 (91) 97 Intake and Output 03/03/20 03/04/20 19:00 07:00 Intake Total 16 ml Balance 16 ml IV Total 16 ml General Appearance: no acute distress HEENT: normocephalic Respiratory: chest wall non-tender, decreased breath sounds Cardiovascular: normal peripheral pulses Abdomen: normal bowel sounds Assessment/Plan Assessment/Plan IMPRESSION: 1. Status post left pneumothorax with chest tube in place. 2. Tracheal bleeding, status post removal. 3. Respiratory failure, status post orotracheal intubation. 4. Transaminitis. 5. Leukocytosis. 6. Chronic encephalopathy. 7. Chronic respiratory failure. DISCUSSION: Comfort care On MS gtt Discussed with RN at bedside Dc planning Tarun Ellis Omar Syed MD March 04, 2020 09:20
--- NOTE | 2020-03-06 11:31 | Discharge Summary ---
DATE OF ADMISSION: 02/19/2020 DATE OF DISCHARGE: 03/04/2020 This 49-year-old female came to the emergency room for acute cardiopulmonary arrest, intubated. The patient was extubated on family's request. The patient is currently nonverbal, opens her eyes. Discussed with the family. They want DNR/DNI and transfer to the long-term with hospice. The patient clinically is stable. The patient is going to go to the long-term with hospice. The patient's family requested continued tube feeding. Continue all the other treatments. Darin Delgado M.D. DR: Deborah JOB#: [id number] CC:
--- NOTE | 2020-03-06 11:50 | Discharge Summary ---
Discharge Summary Discharge Summary _ DATE OF ADMISSION: 02/19/2020 DATE OF DISCHARGE: 03/04/2020 DISCHARGED BY: Dr. Delgado REASON FOR ADMISSION: 49 years old female with chronic respiratory failure, tracheostomy status, dysphagia, feeding by G-tube, seizure disorder, encephalopathy, history of amphetamine abuse, presented due to bleeding from her tracheostomy and hypoxia. Prior to arrival tracheostomy was changed at the shelter , however there was no air movement and copious amount of blood noticed . Patient was emergently transferred to the hospital for further evaluation and management due to trach complication. Upon evaluation patient was tachycardic with heart rate 130 and significantly hypoxic. Patient sustained a cardiac arrest , which was conducted as per ACLS protocol. Patient had return of spontaneous circulation. Patient was orally intubation and started on pressors. Chest x-ray revealed left-sided pneumothorax approximately 50% by volume with extensive subcutaneous emphysema throughout the chest wall and neck soft tissue bilaterally . Patient subsequently undergone chest tube placement by emergency room physician . Chest x-ray confirmed placement of chest tube and improvement in pneumothorax. Laboratory work-up revealed leukocytosis WBC 19.4 ,stable hemoglobin, hematocrit ,and platelet count. INR 0.9. Potassium 6.1. Stable renal parameters. Glucose 338. Lactic acid 14.4. Phosphorus 8.9, magnesium 2.6. AST 219 ALT 218. Troponin negative, EKG revealed sinus tachycardia, no acute ischemic changes . Patient pancultured,started on empiric antibiotics ,IV fluids and pressors . Patient subsequently admitted to ICU for further management . CONSULTANTS: senior support analyst Dr. Kirk pulmonary Dr. Haile ID specialist Dr. Prabhakar Pabon speech/language therapist Dr. Link [facility] Dr. Hernandez HOSPITAL COURSE: Patient admitted to ICU and kept in isolation. Ventilator support and pulmonary toilet provided. Blood culture revealed Staph epidermidis. SARS COV 2 by PCR on 02/18 and 02/23 was not detected Sputum culture revealed Pseudomonas and Stenotrophomonas. Stool for C. difficile was negative. Antibiotics provided as per ID recommendation. Repeated blood cultures were negative. Initial blood cultures were likely contaminant. Pressors provided and titrated to keep mean arterial blood pressure above 65, as per senior support analyst recommendation. Echocardiogram was technically difficult study. Ventricular ejection fraction estimated to be grossly normal. Patient initially was on Levophed, titrated to keep mean arterial blood pressure above 65. Patient was able to be weaned from Levophed on 02/23. Patient noted to have evidence of paroxysmal atrial fibrillation . No anticoagulation in view of bleeding from the trach site. Patient spontaneously converted to sinus rhythm. Patient was followed-up with chest x-ray which showed resolved pneumothorax. Seizure precaution maintained. Dilantin and Keppra IV continued. Hemoglobin and hematocrit were closely monitored with goal to keep hemoglobin above 7. Hemoglobin trended down to lowest 7.8 and hematocrit 22.5. LFT trended down. Transaminitis resolved. Renal parameters and electrolytes were closely monitored. Electrolytes corrected as needed , and nephrotoxic's were avoided. Surgeon followed and recommended to revise tracheostomy once stable. Family decided to proceed with terminal extubation. Patient subsequently was terminally extubated on 03/02 and placed on morphine drip. Comfort care provided. [facility] FINAL DIAGNOSES: Status post cardiopulmonary arrest/ upon arrival in ED Acute on chronic respiratory failure with tracheostomy status Acute respiratory failure requiring orotracheal intubation ( due to tracheal complication) Status post terminal intubation Tracheostomy complication Left-sided pneumothorax Septic shock Pseudomonas/Stenotrophomonas pneumonia Suspected COVID-19 infection -ruled out Electrolyte imbalance Hypoalbuminemia Paroxysmal atrial fibrillation Anoxic encephalopathy Transaminitis-resolved Comfort care DISCHARGE MEDICATIONS: List of medication was sent to accepting facility DISCHARGE INSTRUCTIONS: Patient was discharged to [facility] with hosp[facility] services I have been assigned to dictate discharge summary for this account. I was not involved in the patient's management. Marzena Powers NP Mar 06, 2020 11:50
== END 2020-03-04 09:06 | disposition hospice, home (50) | DRG 870 ==
LOC: EDBD 09:40 → EMR 10:22 → ICU 10:27 → EDBEDREQ 12:58 → ICU 17:28 → 4E 03-03 01:18
DX: A41.9 Sepsis, unspecified organism (principal); J18.9 Pneumonia, unspecified organism; I46.9 Cardiac arrest, cause unspecified; R65.21 Severe sepsis with septic shock; J96.21 Acute and chronic respiratory failure with hypoxia; J15.1 Pneumonia due to Pseudomonas; J95.01 Hemorrhage from tracheostomy stoma; J93.9 Pneumothorax, unspecified; G93.1 Anoxic brain damage, not elsewhere classified; G91.9 Hydrocephalus, unspecified; E87.0 Hyperosmolality and hypernatremia; Z99.11 Dependence on respirator [ventilator] status; Z93.1 Gastrostomy status; R13.10 Dysphagia, unspecified; G40.909 Epilepsy, unspecified, not intractable, without status epilepticus; I10 Essential (primary) hypertension; J98.2 Interstitial emphysema; E87.6 Hypokalemia; Z88.0 Allergy status to penicillin; I48.0 Paroxysmal atrial fibrillation; Z20.828 Contact with and (suspected) exposure to other viral communicable diseases; Z51.5 Encounter for palliative care; E87.5 Hyperkalemia; R19.7 Diarrhea, unspecified; F03.90 Unspecified dementia, unspecified severity, without behavioral disturbance, psychotic disturbance, mood disturbance, and anxiety
CPT/HCPCS: 31500; 36415; 36600; 71045; 80048; 80053; 80061; 80076; 80185; 80202; 81003; 82248; 82533; 82550; 82553; 82607; 82728; 82746; 82803; 82962; 82977; 83036; 83540; 83550; 83605; 83690; 83735; 83880; 84100; 84443; 84478; 84484; 84550; 85007; 85025; 85610; 85730; 86140; 87040; 87070; 87081; 87181; 87205; 87324; 87635; 92950; 93005; 93306; 94002; 94003; 96361; 96365; 96367; 96375; 99291; 99292; J1165; J2765; J7030; J8499